=== PATIENT | female | born 1940 | race Caucasian/White ===

== ENCOUNTER 2020-08-29 09:56 | Outpatient (REF) | payer MEDICAID, SELFPAY ==
--- NOTE | 2020-08-29 09:59 | XR_ITS ---
EXAMINATION: XR BILATERAL KNEES XR LEFT KNEE CLINICAL INFORMATION: Left knee pain. COMPARISON: None. TECHNIQUE: AP bilateral knees one view. Left knee 2 views. FINDINGS: Left Knee: Normal alignment. Medial and lateral compartment joint space is maintained. Mild patellofemoral arthritis, with marginal patellar spurs. No acute fracture or dislocation. Moderate quadriceps tendon insertional enthesopathy. No significant effusion. On the single frontal projection of the right knee, there is normal alignment with maintained joint spaces. IMPRESSION: Mild left knee patellofemoral arthritis.
== END 2020-08-29 09:57 | disposition home or self-care (01) ==
LOC: HO.XRAY 09:56
PROVIDERS: PCP Internal Medicine; Referring Provider Internal Medicine; Visit Provider Orthopaedic Surgery
DX: M25.562 Pain in left knee (principal); M25.462 Effusion, left knee
CPT/HCPCS: 20610; 73560; 73565; 99203; 99204; J1100

== ENCOUNTER 2020-11-12 07:51 | Outpatient (REF) | payer MEDICAID, SELFPAY ==
[2020-11-12 09:05] LABS: MANUAL DIFF FLAG NO
[2020-11-12 09:08] LABS: Basophils Percent Auto 0.7 % (0-2); Eosinophils Absolute Auto 0.1 X10*3/uL (0.0-0.4); Eosinophils Percent Auto 1.7 % (0-4); Hematocrit 42.9 % (37-47); Hemoglobin 13.3 g/dl (12.0-16.0); Imm Gran Abs Auto 0.01 X10*3/uL (0.00-0.03); Imm Gran Pct Auto 0.2 % (0.0-0.4); Lymphocytes Absolute Auto 1.5 X10*3/uL (1.2-4.9); Lymphocytes Percent Auto 35.1 % (20-40); Mean Corpuscular Hemoglobin 26.9 pg (27.0-33.0); Mean Corpuscular Volume 86.8 fL (80-98); Mean Platelet Volume 12.2 fL (9.4-12.3); Monocytes Absolute Auto 0.2 X10*3/uL (0.1-1.2); Monocytes Percent Auto 5.7 % (2-11); Neutrophils Absolute Auto 2.4 X10*3/uL (2.0-8.3); Neutrophils Percent Auto 56.6 % (45-73); Platelet Count 137 X10*3/uL (160-400); Red Blood Count 4.94 X10*6/uL (4.20-5.50); White Blood Count 4.2 X10*3/uL (4.8-10.8)
[2020-11-12 09:34] LABS: Anion Gap 14 (12-20); Blood Urea Nitrogen 23 mg/dL (9-16); Calcium 8.8 mg/dL (8.4-10.2); Carbon Dioxide 25 mmol/L (22-29); Chloride 106 mmol/L (96-108); Estimated Glomerular Filt Rate 41; Magnesium 2.1 mg/dL (1.6-2.6); Phosphorus 4.3 mg/dL (2.7-4.5); Potassium 5.1 mmol/l (3.3-5.1); Sodium 140 mmol/L (135-145)
[2020-11-12 09:48] LABS: Glucose Urine UA NEG (NEG); Leukocyte Esterase Urine NEG (NEG); Nitrite Urine NEG (NEG); Urine Blood TRACE (NEG); Urine Ketones NEG (NEG); Urine Protein NEG (NEG-TRACE)
[2020-11-12 09:49] LABS: Free T4 (Free Thyroxine) 0.92 ng/dL (0.71-1.85); Thyroid Stimulating Hormone 1.73 uIU/mL (0.32-4.0)
[2020-11-12 09:56] LABS: Appearance Urine CLEAR; Color Urine YELLOW
[2020-11-12 09:57] LABS: Vitamin D 25-OH Total 21.3 ng/mL (>30)
[2020-11-12 10:05] LABS: Creatinine Urine 87.71 mg/dL; Total Protein Urine Random < 7 mg/dL (<12)
[2020-11-12 10:43] LABS: Mucus Urine 1+ /LPF; RBC Urine 0-2 /HPF (0); Squamous Epithelial Cell Urine 1+ /LPF; WBC Urine 0-2 /HPF (0-4)
[2020-11-12 10:51] LABS: Renal w Reflex Lab Use Only Order verified
[2020-11-12 11:12] LABS: Creatinine Urine 87.88 mg/dL; Microalbum/Creatinine Ratio Ur 12.5 ug/mg cr
[2020-11-13 18:33] LABS: Calcium (PTHI) 9.2 mg/dL (8.6-10.4); PTHI 75 pg/mL (14-64)
[2020-11-13 19:22] LABS: Triiodothyronine T3 Total 80 ng/dL (76-181)
== END 2020-11-12 07:52 | disposition home or self-care (01) ==
LOC: HO.LAB 07:51
PROVIDERS: Absent Provider Internal Medicine; PCP Internal Medicine; Visit Provider Internal Medicine Nephrology
DX: E78.5 Hyperlipidemia, unspecified (principal); I10 Essential (primary) hypertension; E05.90 Thyrotoxicosis, unspecified without thyrotoxic crisis or storm; E21.3 Hyperparathyroidism, unspecified; E04.9 Nontoxic goiter, unspecified
CPT/HCPCS: 36415; 80051; 81001; 82040; 82043; 82306; 82310; 82565; 83735; 83970; 84100; 84156; 84439; 84443; 84480; 84520; 85025

== ENCOUNTER → 2020-11-18 11:12 | Outpatient (BNVA) | payer MEDICAID, SELFPAY | PROVIDERS: PCP Internal Medicine; Referring Provider Internal Medicine; Visit Provider Internal Medicine | DX: Z76.89 Persons encountering health services in other specified circumstances (principal) ==

== ENCOUNTER 2020-11-27 08:15 | Outpatient (REF) | payer MEDICAID, SELFPAY ==
--- NOTE | 2020-11-27 08:23 | MM_ITS ---
EXAMINATION: BONE DENSITOMETRY CLINICAL INDICATION: Hyperparathyroidism. COMPARISON: None (current study represents initial baseline exam). TECHNIQUE: Using a [employer] Interpreting DXA System (software version: 13.1) manufactured by [employer], dual-energy x-ray absorptiometry was performed of the spine hip and right forearm radius 33%. The images are of good technical quality. Summary results are attached. FINDINGS: AP SPINE L1-L4: BMD 1.034 g/cm2, Z-score 0.7, T-score -1.2, osteopenia. LEFT FEMUR, NECK: BMD 0.768 g/cm2, Z-score 0.3, T-score -1.9, osteopenia. LEFT FEMUR, TOTAL: BMD 0.880 g/cm2, Z-score 1.1, T-score -1.0, normal. RIGHT FOREARM RADIUS 33%: BMD 0.577 g/cm2, Z-score -0.5, T-score -3.4, osteoporosis. IDENTIFIED RISK FACTORS: Osteoporosis. Hyperparathyroidism. Kidney disease. Low calcium intake, early menopause, secondary osteoporosis. Hysterectomy. Bilateral oophorectomy. HISTORY OF FRACTURE: None listed. MEDICATIONS: Vitamin D. MM/XR DEXA appendicular skeleton IMPRESSION: 1. DIAGNOSIS: Osteoporosis based on the lowest T-score value of -3.4 in the right forearm radius 33% applying World Health Organization criteria. 2. 10-YEAR FRACTURE RISK PREDICTION, FRAX: According to the guidelines, FRAX calculation should only be performed on patients in the osteopenia bone density category. Therefore, FRAX was not performed on this patient.? 3. Treatment Recommendations: NOF guidelines recommend consideration for treatment in postmenopausal women and men age 50 and older presenting with the following: -A hip or vertebral (clinical or morphometric) fracture. -T-score less than or equal to -2.5 at the femoral neck or spine after appropriate evaluation to exclude secondary causes. -Low bone mass at the hip or spine and a 10-year fracture probability by FRAX of greater than or equal to 3% for hip fracture or greater than or equal to 20% for major osteoporotic fracture based on the [place] adapted WHO algorithm. 4. Other Recommendations: All treatment decisions require clinical judgment and consideration of individual patient factors, including patient preferences, comorbidities, previous drug use, risk factors not captured in the FRAX model (e.g. frailty, falls, vitamin D deficiency, increased bone turnover, interval significant decline in bone density) and possible under or overestimation of fracture risk by FRAX. Additional medical evaluation for secondary cause of low bone mineral density may be appropriate. FUTURE SCAN RECOMMENDATION: People with diagnosed cases of osteoporosis or at high risk for fracture should have regular bone mineral density tests. For patients eligible for Medicare, routine testing is allowed once every 2 years. The testing frequency can be increased to one year for patients who have rapidly progressing disease, those who are receiving or discontinuing medical therapy to restore bone mass, or have additional risk factors.
== END 2020-11-27 08:16 | disposition home or self-care (01) ==
LOC: HO.MAMMO 08:15
PROVIDERS: Visit Provider Internal Medicine
DX: M81.8 Other osteoporosis without current pathological fracture (principal); E21.3 Hyperparathyroidism, unspecified
CPT/HCPCS: 77081

== ENCOUNTER → 2021-01-20 12:36 | Outpatient (BNVA) | payer MEDICAID, SELFPAY | PROVIDERS: PCP Internal Medicine; Visit Provider Internal Medicine ==

== ENCOUNTER 2021-01-22 07:56 | Outpatient (REF) | payer MEDICAID, SELFPAY ==
[2021-01-22 10:42] LABS: Alanine Aminotransferase 17 U/L (0-31); Albumin Level 4.1 g/dL (3.5-5.0); Alkaline Phosphatase 75 U/L (39-117); Anion Gap 10 (12-20); Aspartate Amino Transferase 19 U/L (5-31); Bilirubin Total 1.2 mg/dL (0.0-1.0); Blood Urea Nitrogen 25 mg/dL (9-16); Calcium 8.8 mg/dL (8.4-10.2); Carbon Dioxide 31 mmol/L (22-29); Chloride 105 mmol/L (96-108); Estimated Glomerular Filt Rate 40; Glucose Random 95 mg/dL (60-115); Phosphorus 4.6 mg/dL (2.7-4.5); Potassium 4.8 mmol/L (3.3-5.1); Sodium 141 mmol/L (135-145); Total Protein 7.1 g/dL (6.5-8.0)
[2021-01-22 11:05] LABS: Free T4 (Free Thyroxine) 0.82 ng/dL (0.71-1.85); Thyroid Stimulating Hormone 1.58 uIU/mL (0.32-4.0); Vitamin D 25-OH Total 33.1 ng/mL (>30)
[2021-01-23 06:02] LABS: Triiodothyronine T3 Total 77 ng/dL (76-181)
[2021-01-23 16:27] LABS: Calcium (PTHI) 9.1 mg/dL (8.6-10.4); PTHI 79 pg/mL (14-64)
== END 2021-01-22 07:57 | disposition home or self-care (01) ==
LOC: HO.10HDL 07:56
PROVIDERS: Visit Provider Internal Medicine
DX: E21.3 Hyperparathyroidism, unspecified (principal); E05.90 Thyrotoxicosis, unspecified without thyrotoxic crisis or storm; E04.9 Nontoxic goiter, unspecified; E55.9 Vitamin D deficiency, unspecified
CPT/HCPCS: 36415; 80053; 82306; 83970; 84100; 84439; 84443; 84480

== ENCOUNTER 2021-01-23 07:54 | Outpatient (REF) | payer MEDICAID, SELFPAY ==
[2021-01-23 10:40] LABS: Alanine Aminotransferase 42 U/L (0-31); Albumin Level 4.1 g/dL (3.5-5.0); Alkaline Phosphatase 88 U/L (39-117); Aspartate Amino Transferase 37 U/L (5-31); Bilirubin Direct 0.4 mg/dL (0.0-0.5); Bilirubin Total 1.2 mg/dL (0.0-1.0); Total Protein 7.3 g/dL (6.5-8.0)
[2021-01-23 12:36] LABS: Total Volume 24 Hour Urine 2700 mL
[2021-01-24 17:32] LABS: Calcium, 24 Hr Urine 32 mg/24 h; Calcium/Creatinine Ratio 31 mg/g creat (30-275); Creatinine 24Hr Urine 1.05 g/24 h (0.50-2.15)
== END 2021-01-23 07:55 | disposition home or self-care (01) ==
LOC: HO.10HDL 07:54
PROVIDERS: Visit Provider Internal Medicine
DX: E21.3 Hyperparathyroidism, unspecified (principal); E05.90 Thyrotoxicosis, unspecified without thyrotoxic crisis or storm
CPT/HCPCS: 36415; 80076; 82340; 82570

== ENCOUNTER 2021-01-24 08:55 | Emergency (ER) | payer MEDICAID, SELFPAY ==
--- NOTE | ~2021-01-24 | CT_ITS ---
EXAMINATION: CT ABDOMEN AND PELVIS WITH CONTRAST CLINICAL INFORMATION: Upper abdominal pain worse after eating COMPARISON: Ultrasound of the abdomen performed same day. TECHNIQUE: Multidetector volumetric images were obtained from the superior aspect of the liver through the pubic symphysis following administration 85 mL of Omnipaque 350 intravenous contrast. Sagittal and coronal reformatted images were obtained on the technologist's workstation. Oral contrast: No This CT examination was performed using dose optimization techniques as appropriate, variously including the following: *Automated exposure control *Adjustment of mA and/or kV according to patient size (this includes techniques or standardized protocols for targeted exams where dose is matched to indication/reason for exam; i.e. extremities or head) *Use of iterative reconstruction technique DLP: 510 mGy-cm FINDINGS: LUNG BASES: The visualized lung bases are unremarkable. LIVER, GALLBLADDER, AND BILIARY TREE: The liver is normal in size, shape, and attenuation. No focal hepatic lesion or biliary ductal dilatation is present. The gallbladder is unremarkable with no evidence of radiopaque gallstones, gallbladder wall thickening, or obvious pericholecystic inflammatory changes. PANCREAS: Unremarkable. SPLEEN: Unremarkable. ADRENAL GLANDS: Unremarkable. KIDNEYS AND URETERS: Simple cyst lower pole right kidney. Left kidney normal. Ureters normal. BLADDER: Unremarkable. GASTROINTESTINAL TRACT: Scattered diverticulosis most prominent in the sigmoid colon. No definite diverticulitis. Small bowel normal. STOMACH: Borderline generalized thickening of the wall the stomach. This could reflect normal variation or mild gastritis. ABDOMINAL WALL: There is a small to moderate size fat-containing left inguinal hernia measuring 2.5 cm transverse. There several punctate areas of calcification in the subcutaneous soft tissues in the right flank region likely reflecting injection granulomas. LYMPH NODES: Normal. VASCULAR: Mild arterial calcification throughout. PELVIC VISCERA: Postsurgical or age-related change in the uterus not clearly demonstrated. OSSEOUS STRUCTURES: Multilevel spondylosis of lumbosacral spine with grade 1 degenerative anterolisthesis at L5-S1. CT/CT abdomen pelvis w con IMPRESSION: No definitive abnormality that might explain the presenting symptoms. Borderline generalized thickening of the stomach wall. This could reflect normal variation or gastritis. Simple cyst right kidney. Scattered diverticulosis without diverticulitis. Left inguinal hernia fat-containing.
--- NOTE | ~2021-01-24 | US_ITS ---
EXAMINATION: US ABDOMEN COMPLETE CLINICAL INFORMATION: Upper abdominal pain for a few days. COMPARISON: None TECHNIQUE: Real-time imaging of the abdominal viscera. FINDINGS: PANCREAS: Normal. ABDOMINAL AORTA: The proximal, mid, and distal segments are normal in caliber. INFERIOR VENA CAVA: Visualized portions are normal. LIVER: There is slightly increased liver echogenicity with focal fatty sparing. The liver is normal in size. The liver contour is normal. Parenchymal echogenicity is normal. No focal hepatic lesion. There is no intrahepatic biliary duct dilatation seen. GALLBLADDER: The gallbladder is contracted and cannot be evaluated. COMMON BILE DUCT: Normal in caliber measuring 0.8 cm in diameter. RIGHT KIDNEY: There is anechoic cyst midpole measuring 1.1 x 1.1 x 1.2 cm. No hydronephrosis. No renal calculi or focal parenchymal lesions. The kidney measures 8.5 cm in maximum dimension. LEFT KIDNEY: Normal. No hydronephrosis. No renal calculi or focal parenchymal lesions. The kidney measures 9.8 cm in maximum dimension. SPLEEN: Normal. The spleen measures 7.8 cm in maximum dimension. FREE FLUID: None. US/US abdomen complete IMPRESSION: Diffuse hepatic steatosis with areas of focal fatty sparing. Contracted gallbladder cannot be evaluated. Right kidney midpole 1.2 cm cyst.
[2021-01-24 09:02] VITALS: BP 141/74; PULSE 75; RESP 18; TEMP 36.6; O2SAT 94; BMI 24.7
[2021-01-24 09:44] LABS: Imm Gran Abs Auto 0.01 X10*3/uL (0.00-0.03); Imm Gran Pct Auto 0.3 % (0.0-0.4); MANUAL DIFF FLAG SCAN; Mean Corpuscular Hemoglobin 27.6 pg (27.0-33.0); PLT CLUMP 1; SCAN SMEAR FLAG 1
[2021-01-24 09:46] LABS: Basophils Percent Auto 0.8 % (0-2); Eosinophils Absolute Auto 0.1 X10*3/uL (0.0-0.4); Eosinophils Percent Auto 1.8 % (0-4); Hematocrit 38.2 % (37-47); Hemoglobin 12.2 g/dl (12.0-16.0); Lymphocytes Absolute Auto 1.3 X10*3/uL (1.2-4.9); Lymphocytes Percent Auto 34.4 % (20-40); Mean Corpuscular HGB Conc 31.9 g/dl (31.0-35.0); Mean Corpuscular Volume 86.4 fL (80-98); Mean Platelet Volume 12.1 fL (9.4-12.3); Monocytes Absolute Auto 0.3 X10*3/uL (0.1-1.2); Monocytes Percent Auto 8.1 % (2-11); Neutrophils Absolute Auto 2.1 X10*3/uL (2.0-8.3); Neutrophils Percent Auto 54.6 % (45-73); Platelet Count 124 X10*3/uL (160-400); Red Blood Count 4.42 X10*6/uL (4.20-5.50); Red Cell Distribution Width 13.7 % (11.0-16.0); White Blood Count 3.8 X10*3/uL (4.8-10.8)
[2021-01-24 10:00] LABS: Prothrombin Time 12.2 SEC (10.8-13.0)
[2021-01-24 10:03] LABS: Partial Thromboplastin Time 29.9 SEC (24.1-38.0)
[2021-01-24 10:09] LABS: SLIDE REVIEW VERIFIED
[2021-01-24 10:27] LABS: Ethanol < 10 mg/dL
[2021-01-24 10:35] LABS: Alanine Aminotransferase 34 U/L (0-31); Albumin Level 3.8 g/dL (3.5-5.0); Alkaline Phosphatase 80 U/L (39-117); Anion Gap 11 (12-20); Aspartate Amino Transferase 25 U/L (5-31); Bilirubin Direct 0.4 mg/dL (0.0-0.5); Bilirubin Total 0.9 mg/dL (0.0-1.0); Blood Urea Nitrogen 21 mg/dL (9-16); Calcium 8.5 mg/dL (8.4-10.2); Carbon Dioxide 26 mmol/L (22-29); Chloride 106 mmol/L (96-108); Creatinine Clr Calc Pharmacy 30.9; Estimated Glomerular Filt Rate 41; Glucose Random 141 mg/dL (60-115); Lipase 53 U/L (8-78); Magnesium 2.1 mg/dL (1.6-2.6); Phosphorus 3.9 mg/dL (2.7-4.5); Potassium 4.2 mmol/L (3.3-5.1); Sodium 139 mmol/L (135-145); Total Protein 6.7 g/dL (6.5-8.0)
--- NOTE | 2021-01-24 10:36 | ED_ITS ---
HPI - Abdominal Pain General Chief Complaint: Recheck/Abnormal Lab/Rx Stated Complaint: ABNORMAL LABS Time Seen by Provider: 01/24/21 09:10 Source: patient Mode of arrival: ambulatory Limitations: language barrier (Brazilian-speaking) History of Present Illness HPI narrative: 80-year-old female with a past medical history of hypertension, hyperlipidemia, renal impairment, subclinical hyperthyroidism, goiter, hyperpa rathyroidism, and vitamin-D deficiency presenting to the ED with complaints of abnormal labs for her liver per patient on 01/20/[address] Vero Downs and abdominal pain for the past few days worse today. Reports that the abdominal pain is in the upper aspect and is worse after eating. She reports she is not completely sure why her bilingual administrative assistant sent her here. Denies any fevers, nausea/vomiting, chest pain, shortness of breath, palpitations, dyspnea on exertion, orthopnea, back pain, rashes, dysuria, polyuria, polydipsia, constipation, diarrhea, hematuria, melena or any other symptoms complaints or concerns at this time. Denies recent travel or sick contacts. - although when I reviewed the patient's last visit with her bilingual administrative assistant on 01/20/[address] Vero Downs it appears that they were worried about the patient's thyroid and parathyroid nothing in the note that I have reviewed about the patient's liver. MD elicited complaint: abdominal pain Onset (ago): day(s) (Few days worse today) Pain Consistency: intermittent Location: epigastric, LUQ and RUQ Severity: mild Quality: cramping and aching Radiation: none Migration to: no migration Exacerbating factors: eating Relieving factors: nothing Associated symptoms: denies other symptoms Related Data Home Medications Medication Instructions Recorded Confirmed atorvastatin 20 mg tablet 20 mg PO DAILY 08/29/20 01/20/21 gabapentin 100 mg capsule 100 mg PO DAILY 08/29/20 01/20/21 metoprolol succinate 50 mg 50 mg PO DAILY 08/29/20 01/20/21 tablet,extended release 24 hr trazodone 100 mg tablet 100 mg PO DAILY 08/29/20 01/20/21 methimazole 5 mg tablet 2.5 mg PO DAILY tab 11/18/20 01/20/21 Previous Rx's Medication Instructions Recorded cholecalciferol (vitamin D3) 25 25 mcg PO DAILY 30 Days #30 cap 11/18/20 mcg (1,000 unit) capsule omeprazole 20 mg PO BID #20 cap 01/24/21 Allergies Allergy/AdvReac Type Severity Reaction Status Date / Time No Known Allergies Allergy Verified 01/20/21 13:34 Review of Systems Review of Systems Constitutional : No Weight loss, No Fever, No Chills, No Night Sweats, No Fatigue, No Malaise ENT/Mouth: No ear pain, No sore throat, No Difficulty swallowing Cardiovascular : No Chest Pain, No SOB, No Dyspnea on Exertion, No Orthopnea, NoEdema, No Palpitations Respiratory : No Cough, No Sputum, No Wheezing, No Dyspnea Gastrointestinal : + Abdominl pain, No Nausea, No Vomiting, No Diarrhea, No Hematochezia, No Melena Genitourinary : No irregular bleeding, No Dysuria, No Urinary Frequency, No Hematuria, No Urinary Incontinence, No Urgency, No Flank Pain Musculoskeletal : No joint pain, No Myalgias, No Joint Swelling Skin : No Skin Lesions, No rash Neuro : No Weakness, No Numbness, No Paresthesias, No Loss of Consciousness, NoDizziness, No Headache Psych : No Social Issues, Heme/Lymph: No Bruising, No Bleeding,No Lymphadenopathy Endocrine : No Polyuria, No Polydipsia, No Temperature Intolerance Yes all other systems are reviewed and are negative Physical Exam Vital Signs: Vital Signs: Last Vital Signs Temp 97.9 F 01/24/21 09:02 Pulse 75 01/24/21 09:02 Resp 18 01/24/21 09:02 BP 141/74 H 01/24/21 09:02 Pulse Ox 94 01/24/21 09:02 Body Mass Index 24.7 vital signs have been reviewed as normal and appeared to be correct. Blood pressure hypertensive at 141/74. Heart rate normal. Respiration rate normal. Temperature normal. Oxygen saturation normal. Appearance: Alert. Oriented X3. No acute distress. Head: Normal external exam. Normocephalic. Eyes: PERRLA. EOMI. Conjunctiva and sclera normal. Eyelids normal. No scleral icterus noted. ENT: Pharynx normal. Uvula midline. Moist mucous membranes. No trismus noted. No drooling noted. No muffled voice noted. Neck: Normal inspection. Neck supple. FROM. No adenopathy. No meningeal signs. CVS: Normal heart rate and rhythm. Heart sound normal. No murmurs noted. Pulses normal throughout. Respiratory: No respiratory distress. Painless inspiration. Breath sounds normal. No wheezes/rales/rhonchi noted. Chest nontender. No accessory muscle usage noted or decreased air movement noted. Abdomen: Soft and Mild TTP to upper abdomen/epigastric abdominal area positive Mendoza sign with guarding. Nondistended. No rigidity. Bowel sounds normal in all 4 quadrants. No distention noted. No organomegaly noted. No visible injury noted. No rebound tenderness. Negative Rovsing sign. Negative obturator's sign. Negative psoas sign. Back: No CVA tenderness. Full range of motion noted. Skin: Skin warm and dry. Normal skin color. No jaundice noted. Normal skin turgor. No rashes/lesions/lacerations noted. Extremities: Extremities exhibit normal range of motion. Extremities nontender. Neuro: Oriented X 3. No motor deficit. No sensory deficit. Reflexes normal. Course Course Course Narrative: 9:35am - 80-year-old female with a PMHx of HTN, HLD, renal impairment, subclinical hyperthyroidism, goiter, hyperparathyroidism, and vitamin-D deficiency presenting to the ED with complaints of abnormal labs for her liver and abdominal pain for the past few days worse today. - patient was seen by her bilingual administrative assistant on 01/20/2021 and being worked up for subclinical hypothyroidism and hyperparathyroidism along with vitamin D deficiency and goiter. - on exam patient is alert and oriented x3. Not in any acute distress. Mildly hypertensive at 141/74 otherwise all other vitals are within normal limits. No scleral icterus or jaundice on exam. Lungs clear to auscultation. CV RRR. Patient went moderate tenderness to the upper abdomen/epigastric area. Although abdomen is soft and nondistended. No CVA tenderness noted. No focal neuro deficits patient is neuro intact. - Plan: Labs, CT abd US and CT scan of abd/pelvis c IV contrast then re- evaluate. Reevaluation(s) Reevaluation #1: - white blood cell count 3000. - random glucose 141 - ALT 34 - otherwise all other labs are within normal limits. - abdominal ultrasound revealed diffuse hepatic steatosis with area of focal fatty sparing contracted gallbladder could not be evaluated and noted to have right kidney midpole 1.2 cm cyst - therefore CT scan of abdomen and pelvis with IV contrast obtained and revealed no definite abnormality that might explain the patient's symptoms borderline generalized thickening of the stomach wall which can represent normal variant or gastritis. Simple cyst right kidney. Scattered diverticulosis without diverticulitis and left inguinal hernia containing fat otherwise no other acute processes. - therefore will DC home with PPI and instructions to return if any new or worsening symptoms and to avoid any NSAIDs, caffeine or smoking. Patient understands and agrees with plan. Time: 12:58 [facility] - Abdominal Pain Medical Records Attestation: I reviewed the patient's medical records. Lab Data Attestation: I reviewed the patient's lab results. Result diagrams: 01/24/21 09:33 01/24/21 09:34 Labs: Lab Results 01/24/21 01/24/21 01/24/21 Range/Units 09:33 09:33 09:33 WBC 3.8 L (4.8-10.8) X10*3/uL RBC 4.42 (4.20-5.50) X10*6/uL Hgb 12.2 (12.0-16.0) g/dl Hct 38.2 (37-47) % MCV 86.4 (80-98) fL MCH 27.6 (27.0-33.0) pg MCHC 31.9 (31.0-35.0) g/dl RDW 13.7 (11.0-16.0) % Plt Count 124 L (160-400) X10*3/uL MPV 12.1 (9.4-12.3) fL Immature Gran % (Auto) 0.3 (0.0-0.4) % Neut % (Auto) 54.6 (45-73) % Lymph % (Auto) 34.4 (20-40) % Lyman % (Auto) 8.1 (2-11) % Eos % (Auto) 1.8 (0-4) % Baso % (Auto) 0.8 (0-2) % Lymph # (Auto) 1.3 (1.2-4.9) X10*3/uL Lyman # (Auto) 0.3 (0.1-1.2) X10*3/uL Eos # (Auto) 0.1 (0.0-0.4) X10*3/uL Baso # (Auto) 0.0 (0.0-0.2) X10*3/uL Abs Immat Gran (auto) 0.01 (0.00-0.03) X10*3/uL Absolute Neuts (auto) 2.1 (2.0-8.3) X10*3/uL Absolute Nucleated RBC 0.000 (0.0-0.012) X10*3/uL Nucleated RBC % (auto) 0.0 (0.0-0.2) /100WBC Smear Tech's Comments VERIFIED Hold Purple Top SEE NOTE PT 12.2 (10.8-13.0) SEC INR 1.0 (0.9-1.1) APTT 29.9 (24.1-38.0) SEC Sodium (135-145) mmol/L Potassium (3.3-5.1) mmol/L Chloride (96-108) mmol/L Carbon Dioxide (22-29) mmol/L Anion Gap (12-20) BUN (9-16) mg/dL Creatinine (0.5-1.4) mg/dL Estim Creat Clear Calc Estimated GFR Random Glucose (60-115) mg/dL Calcium (8.4-10.2) mg/dL Phosphorus (2.7-4.5) mg/dL Magnesium (1.6-2.6) mg/dL Total Bilirubin (0.0-1.0) mg/dL Direct Bilirubin (0.0-0.5) mg/dL AST (5-31) U/L ALT (0-31) U/L Alkaline Phosphatase (39-117) U/L Total Protein (6.5-8.0) g/dL Albumin (3.5-5.0) g/dL Lipase (8-78) U/L 25-OH Vitamin D Total (>30) ng/mL TSH (0.32-4.0) uIU/mL Free T4 (0.71-1.85) ng/dL Ethyl Alcohol mg/dL 01/24/21 01/24/21 01/24/21 Range/Units 09:34 09:34 09:34 WBC (4.8-10.8) X10*3/uL RBC (4.20-5.50) X10*6/uL Hgb (12.0-16.0) g/dl Hct (37-47) % MCV (80-98) fL MCH (27.0-33.0) pg MCHC (31.0-35.0) g/dl RDW (11.0-16.0) % Plt Count (160-400) X10*3/uL MPV (9.4-12.3) fL Immature Gran % (Auto) (0.0-0.4) % Neut % (Auto) (45-73) % Lymph % (Auto) (20-40) % Lyman % (Auto) (2-11) % Eos % (Auto) (0-4) % Baso % (Auto) (0-2) % Lymph # (Auto) (1.2-4.9) X10*3/uL Lyman # (Auto) (0.1-1.2) X10*3/uL Eos # (Auto) (0.0-0.4) X10*3/uL Baso # (Auto) (0.0-0.2) X10*3/uL Abs Immat Gran (auto) (0.00-0.03) X10*3/uL Absolute Neuts (auto) (2.0-8.3) X10*3/uL Absolute Nucleated RBC (0.0-0.012) X10*3/uL Nucleated RBC % (auto) (0.0-0.2) /100WBC Smear Tech's Comments Hold Purple Top PT (10.8-13.0) SEC INR (0.9-1.1) APTT (24.1-38.0) SEC Sodium 139 (135-145) mmol/L Potassium 4.2 (3.3-5.1) mmol/L Chloride 106 (96-108) mmol/L Carbon Dioxide 26 (22-29) mmol/L Anion Gap 11 L (12-20) BUN 21 H (9-16) mg/dL Creatinine 1.26 (0.5-1.4) mg/dL Estim Creat Clear Calc 30.9 Estimated GFR 41 Random Glucose 141 H D (60-115) mg/dL Calcium 8.5 (8.4-10.2) mg/dL Phosphorus 3.9 (2.7-4.5) mg/dL Magnesium 2.1 (1.6-2.6) mg/dL Total Bilirubin 0.9 (0.0-1.0) mg/dL Direct Bilirubin 0.4 (0.0-0.5) mg/dL AST 25 (5-31) U/L ALT 34 H (0-31) U/L Alkaline Phosphatase 80 (39-117) U/L Total Protein 6.7 (6.5-8.0) g/dL Albumin 3.8 (3.5-5.0) g/dL Lipase 53 (8-78) U/L 25-OH Vitamin D Total 31.5 (>30) ng/mL TSH 1.35 (0.32-4.0) uIU/mL Free T4 0.87 (0.71-1.85) ng/dL Ethyl Alcohol < 10 mg/dL Imaging Data Abdominal ultrasound: Attestation: I personally reviewed and interpreted this imaging study as follows: Radiologist's impression: FINDINGS: PANCREAS: Normal. ABDOMINAL AORTA: The proximal, mid, and distal segments are normal in caliber. INFERIOR VENA CAVA: Visualized portions are normal. LIVER: There is slightly increased liver echogenicity with focal fatty sparing. The liver is normal in size. The liver contour is normal. Parenchymal echogenicity is normal. No focal hepatic lesion. There is no intrahepatic biliary duct dilatation seen. GALLBLADDER: The gallbladder is contracted and cannot be evaluated. COMMON BILE DUCT: Normal in caliber measuring 0.8 cm in diameter. RIGHT KIDNEY: There is anechoic cyst midpole measuring 1.1 x 1.1 x 1.2 cm. No hydronephrosis. No renal calculi or focal parenchymal lesions. The kidney measures 8.5 cm in maximum dimension. LEFT KIDNEY: Normal. No hydronephrosis. No renal calculi or focal parenchymal lesions. The kidney measures 9.8 cm in maximum dimension. SPLEEN: Normal. The spleen measures 7.8 cm in maximum dimension. FREE FLUID: None. US/US abdomen complete IMPRESSION: Diffuse hepatic steatosis with areas of focal fatty sparing. Contracted gallbladder cannot be evaluated. Right kidney midpole 1.[address] scan of abdomen pelvis with IV contrast: Attestation: I personally reviewed and interpreted this imaging study as follows: Radiologist's impression: FINDINGS: LUNG BASES: The visualized lung bases are unremarkable. LIVER, GALLBLADDER, AND BILIARY TREE: The liver is normal in size, shape, and attenuation. No focal hepatic lesion or biliary ductal dilatation is present. The gallbladder is unremarkable with no evidence of radiopaque gallstones, gallbladder wall thickening, or obvious pericholecystic inflammatory changes. PANCREAS: Unremarkable. SPLEEN: Unremarkable. ADRENAL GLANDS: Unremarkable. KIDNEYS AND URETERS: Simple cyst lower pole right kidney. Left kidney normal. Ureters normal. BLADDER: Unremarkable. GASTROINTESTINAL TRACT: Scattered diverticulosis most prominent in the sigmoid colon. No definite diverticulitis. Small bowel normal. STOMACH: Borderline generalized thickening of the wall the stomach. This could reflect normal variation or mild gastritis. ABDOMINAL WALL: There is a small to moderate size fat-containing left inguinal hernia measuring 2.5 cm transverse. There several punctate areas of calcification in the subcutaneous soft tissues in the right flank region likely reflecting injection granulomas. LYMPH NODES: Normal. VASCULAR: Mild arterial calcification throughout. PELVIC VISCERA: Postsurgical or age-related change in the uterus not clearly demonstrated. OSSEOUS STRUCTURES: Multilevel spondylosis of lumbosacral spine with grade 1 degenerative anterolisthesis at L5-S1. CT/CT abdomen pelvis w con IMPRESSION: No definitive abnormality that might explain the presenting symptoms. Borderline generalized thickening of the stomach wall. This could reflect normal variation or gastritis. Simple cyst right kidney. Scattered diverticulosis without diverticulitis. Left inguinal hernia fat-containing. Discharge Plan Discharge Clinical Impression: Gastritis Patient Disposition: Home, Self-Care Instructions: Gastritis (ED) Prescriptions: New omeprazole 20 mg capsule,delayed release(DR/EC) 20 mg PO BID Qty: 20 RF: 0 No Action metoprolol succinate 50 mg tablet extended release 24 hr 50 mg PO DAILY RF: 0 atorvastatin 20 mg tablet 20 mg PO DAILY RF: 0 gabapentin 100 mg capsule 100 mg PO DAILY RF: 0 trazodone 100 mg tablet 100 mg PO DAILY RF: 0 methimazole 5 mg tablet 2.5 mg PO DAILY RF: 0 cholecalciferol (vitamin D3) 25 mcg (1,000 unit) capsule 25 mcg PO DAILY 30 Days Qty: 30 RF: 11 Referrals: Evi Thomson MD [Primary Care Provider] - 2 days Vero Voss DO [Physician] - 2 days Print Language: Brazilian [facility] Past Medical History Attestation statement: The following information was validated with the patient. Medical History Effusion, left knee Goiter High cholesterol Hyperparathyroidism Hypertension Left knee pain Renal impairment Subclinical hyperthyroidism Vitamin D deficiency Surgical History Hx of cataract extraction Hx of hysterectomy Family History Family History Father No problems noted. Mother No problems noted. Social History Social History Alcohol intake: never Smoking Status: Never smoker Use of substances other than those prescribed or required for medical reasons: No Advance Directives: No Advance Directives Information Provided: No
[2021-01-24 10:55] LABS: Vitamin D 25-OH Total 31.5 ng/mL (>30)
[2021-01-24 10:56] LABS: Free T4 (Free Thyroxine) 0.87 ng/dL (0.71-1.85); Thyroid Stimulating Hormone 1.35 uIU/mL (0.32-4.0)
[2021-01-25 06:37] LABS: Triiodothyronine T3 Total 89 ng/dL (76-181)
[2021-02-01 15:01] LABS: Calcium (PTHI) 8.7 mg/dL (8.6-10.4); PTHI 85 pg/mL (14-64)
== END 2021-01-24 13:31 | disposition home or self-care (01) ==
PROVIDERS: Physician Assistant Medical; Emergency Provider Emergency Medicine Emergency Medical Services; PCP Internal Medicine
DX: K29.70 Gastritis, unspecified, without bleeding (principal); R93.5 Abnormal findings on diagnostic imaging of other abdominal regions, including retroperitoneum; K76.0 Fatty (change of) liver, not elsewhere classified; Q61.01 Congenital single renal cyst; K40.90 Unilateral inguinal hernia, without obstruction or gangrene, not specified as recurrent; K57.92 Diverticulitis of intestine, part unspecified, without perforation or abscess without bleeding; I10 Essential (primary) hypertension; E78.5 Hyperlipidemia, unspecified; Z79.899 Other long term (current) drug therapy
CPT/HCPCS: 36415; 74177; 76700; 80048; 80076; 80320; 82306; 83690; 83735; 83970; 84100; 84439; 84443; 84480; 85025; 85610; 85730; 99284; Q9967

== ENCOUNTER → 2021-02-26 11:32 | Outpatient (BNVA) | payer MEDICAID, SELFPAY | PROVIDERS: PCP Internal Medicine; Visit Provider Internal Medicine ==

== ENCOUNTER 2021-05-07 07:42 | Outpatient (REF) | payer MEDICAID, SELFPAY ==
[2021-05-07 10:48] LABS: Alanine Aminotransferase 15 U/L (0-31); Alkaline Phosphatase 87 U/L (39-117); Anion Gap 13 (12-20); Aspartate Amino Transferase 24 U/L (5-31); Bilirubin Total 0.8 mg/dL (0.0-1.0); Blood Urea Nitrogen 23 mg/dL (9-16); Calcium 9.1 mg/dL (8.4-10.2); Carbon Dioxide 24 mmol/L (22-29); Chloride 109 mmol/L (96-108); Estimated Glomerular Filt Rate 31; Glucose Random 106 mg/dL (60-115); Phosphorus 4.2 mg/dL (2.7-4.5); Potassium 5.2 mmol/L (3.3-5.1); Sodium 141 mmol/L (135-145); Total Protein 7.5 g/dL (6.5-8.0)
[2021-05-07 11:11] LABS: Thyroid Stimulating Hormone 0.82 uIU/mL (0.32-4.0); Vitamin D 25-OH Total 41.8 ng/mL (>30)
[2021-05-08 07:26] LABS: Triiodothyronine T3 Total 94 ng/dL (76-181)
[2021-05-08 13:32] LABS: Calcium (PTHI) 9.3 mg/dL (8.6-10.4); PTHI 82 pg/mL (14-64)
[2021-05-08 13:57] LABS: H Pylori Breath Test NOT DETECTED (NOT DETECTED)
== END 2021-05-07 07:43 | disposition home or self-care (01) ==
LOC: HO.10HDL 07:42
PROVIDERS: Physician Assistant; Visit Provider Internal Medicine
DX: E21.3 Hyperparathyroidism, unspecified (principal); E04.9 Nontoxic goiter, unspecified; E05.90 Thyrotoxicosis, unspecified without thyrotoxic crisis or storm; E55.9 Vitamin D deficiency, unspecified; K21.9 Gastro-esophageal reflux disease without esophagitis
CPT/HCPCS: 36415; 80053; 82306; 83013; 83970; 84100; 84439; 84443; 84480; 99202

== ENCOUNTER 2021-05-08 07:50 | Outpatient (REF) | payer MEDICAID, SELFPAY ==
[2021-05-08 08:53] LABS: Albumin Level 3.9 g/dL (3.5-5.0); Anion Gap 10 (12-20); Blood Urea Nitrogen 20 mg/dL (9-16); Calcium 9.2 mg/dL (8.4-10.2); Carbon Dioxide 28 mmol/L (22-29); Chloride 108 mmol/L (96-108); Estimated Glomerular Filt Rate 37; Glucose Random 102 mg/dL (60-115); Phosphorus 3.8 mg/dL (2.7-4.5); Potassium 4.9 mmol/L (3.3-5.1); Sodium 141 mmol/L (135-145)
[2021-05-08 09:03] LABS: Thyroid Stimulating Hormone 0.81 uIU/mL (0.32-4.0); Vitamin D 25-OH Total 40.3 ng/mL (>30)
[2021-05-09 13:26] LABS: Calcium (PTHI) 9.2 mg/dL (8.6-10.4); PTHI 80 pg/mL (14-64)
== END 2021-05-08 07:51 | disposition home or self-care (01) ==
LOC: HO.LAB 07:50
PROVIDERS: PCP Internal Medicine; Visit Provider Internal Medicine
DX: E21.3 Hyperparathyroidism, unspecified (principal); E04.9 Nontoxic goiter, unspecified; E05.90 Thyrotoxicosis, unspecified without thyrotoxic crisis or storm; E55.9 Vitamin D deficiency, unspecified
CPT/HCPCS: 36415; 80048; 82040; 82306; 83970; 84100; 84439; 84443

== ENCOUNTER → 2021-05-28 09:25 | Outpatient (BNVA) | payer MEDICAID, SELFPAY | PROVIDERS: Visit Provider Internal Medicine ==

== ENCOUNTER 2021-07-16 09:54 | Day surgery (SDC) | payer MEDICAID, SELFPAY ==
--- NOTE | 2021-07-15 10:45 | P.CONAN_ITS ---
Documented by User: Natalie De NP 07/15/21 10:46 HPI - Anesthesia Eval Consult details Narrative: 80yo F for Upper Endoscopy PMFSH Active Problems Active Problems: All Active Problems (Updated 07/10/21 @ 12:53 by Angelic Zimmerman, RN) Acid reflux (Acute) Renal impairment (Acute) Hypertension (Acute) High cholesterol (Acute) Vitamin D deficiency (Acute) Goiter (Acute) Hyperparathyroidism (Acute) Subclinical hyperthyroidism (Acute) Effusion, left knee (Acute) Left knee pain (Acute) Past Medical History Medical History (Updated 07/10/21 @ 12:53 by Angelic Zimmerman, EDITA) Effusion, left knee Goiter High cholesterol Hyperparathyroidism Hypertension Left knee pain On beta april at home Renal impairment Subclinical hyperthyroidism Vitamin D deficiency Family History Family History Father No problems noted. Mother No problems noted. Surgical History Surgical History H/O colonoscopy History of esophagogastroduodenoscopy (EGD) Hx of cataract extraction Hx of hysterectomy Social History Social History Household Members Other:: lives with her daughter Alcohol intake: never Patient Tobacco Use Status: Never used Tobacco Use of substances other than those prescribed or required for medical reasons: No Have you been hit, kicked, punched, or otherwise hurt by someone within the past year? If so, by whom?: No Are you DNR?: No Advance Directives: No Advance Directives Information Provided: No Recently lost weight without trying: No Nutrition Risks: No Nutritional Risk Patient : No Current occupational status: unemployed Meds Allergies Allergy/AdvReac Type Severity Reaction Status Date / Time No Known Allergies Allergy Verified 07/10/21 12:59 Home Medications Medication Instructions Recorded Confirmed Last Taken Type atorvastatin 20 mg tablet 20 mg PO DAILY 08/29/20 07/10/21 Unknown History gabapentin 100 mg capsule 100 mg PO BID 08/29/20 07/10/21 Unknown History metoprolol succinate 50 mg 50 mg PO DAILY 08/29/20 07/10/21 Unknown History tablet,extended release 24 hr trazodone 100 mg tablet 100 mg PO DAILY 08/29/20 07/10/21 Unknown History fluticasone propionate 50 1 - 2 spray INTRANASAL DAILY PRN 07/10/21 07/10/21 Unknown History mcg/actuation nasal spray,suspension gabapentin 300 mg capsule 1 cap PO BEDTIME 07/10/21 07/10/21 Unknown History Exam Exam Date and Time: July 15, 2021 1045 Pertinent Lab Results Pertinent Lab Results: Laboratory Tests 01/24/21 05/08/21 09:33 08:00 WBC 3.8 L Hgb 12.2 Hct 38.2 Plt Count 124 L Sodium 141 Potassium 4.9 Chloride 108 Carbon Dioxide 28 BUN 20 H Creatinine 1.37 Assessment and Plan Assessment Anesthesia Assessment: Chart Reviewed Documented by User: Marilyn Otto MD 07/16/21 11:04 [facility] Past Medical History Medical History (Updated 07/10/21 @ 12:53 by Angelic Zimmerman RN) Effusion, left knee Goiter High cholesterol Hyperparathyroidism Hypertension Left knee pain On beta april at home Renal impairment Subclinical hyperthyroidism Vitamin D deficiency Family History Family History Father No problems noted. Mother No problems noted. Family history of problems with anesthesia: No Surgical History Surgical History H/O colonoscopy History of esophagogastroduodenoscopy (EGD) Hx of cataract extraction Hx of hysterectomy History of Problems with Anesthesia: No Social History Social History Household Members Other:: lives with her daughter Alcohol intake: never Patient Tobacco Use Status: Never used Tobacco Use of substances other than those prescribed or required for medical reasons: No Have you been hit, kicked, punched, or otherwise hurt by someone within the past year? If so, by whom?: No Are you DNR?: No Advance Directives: No Advance Directives Information Provided: No Recently lost weight without trying: No Nutrition Risks: No Nutritional Risk Patient : No Current occupational status: unemployed Meds Allergies Allergy/AdvReac Type Severity Reaction Status Date / Time No Known Allergies Allergy Verified 07/10/21 12:59 Home Medications Medication Instructions Recorded Confirmed Last Taken Type atorvastatin 20 mg tablet 20 mg PO DAILY 08/29/20 07/10/21 Unknown History gabapentin 100 mg capsule 100 mg PO BID 08/29/20 07/10/21 Unknown History metoprolol succinate 50 mg 50 mg PO DAILY 08/29/20 07/10/21 Unknown History tablet,extended release 24 hr trazodone 100 mg tablet 100 mg PO DAILY 08/29/20 07/10/21 Unknown History fluticasone propionate 50 1 - 2 spray INTRANASAL DAILY PRN 07/10/21 07/10/21 Unknown History mcg/actuation nasal spray,suspension gabapentin 300 mg capsule 1 cap PO BEDTIME 07/10/21 07/10/21 Unknown History Exam Airway Mallampati Class: II TM Dist: >3cm Neck ROM: Full Denture: Upper and Lower Heart: rrr Lungs: cta bl Assessment and Plan Assessment Anesthesia Assessment: Anesthesia Plan Discussed and Chart Reviewed Final Anesthetic Review Family History of Problems with Anesthesia: No History of Problems with Anesthesia: No NPO: No ASA Class: II Final Preanesthetic Review: No Changes in Pt Med Stat and Consent Obtained/Reviewed Patient Risk: Intermediate Procedure Risk: Intermediate Anesthetic Plan Anesthetic Plan: MAC: Disposition: Standard PACU
[2021-07-16 09:42] VITALS: BMI 27.6
[2021-07-16 10:14] VITALS: BP 183/82; PULSE 63; RESP 18; TEMP 36.6; O2SAT 95
--- NOTE | 2021-07-16 10:22 | PC.NURSE ---
pt has a facial robert right upper eye
[2021-07-16] MEDS: Lactated Ringers 1,000 ML 100 ML IVCONT (10:45)
--- NOTE | 2021-07-16 10:54 | MHC.SHP ---
Pre-Procedural Eval Section A Date of Service: 07/16/21 Section B Chief Complaint: reflux disease Relevant Family History (Specify if Yes): No Relevant Social History: None Present Medications: see Short Stay Collaborative assessment Medical History: Significant History (Effusion, left knee Goiter High cholesterol Hyperparathyroidism Hypertension Left knee pain On beta april at home Renal impairment Subclinical hyperthyroidism Vitamin D deficiency) History of Previous Operations: Relevant previous surgery/procedure and date(s) (H/O colonoscopy History of esophagogastroduodenoscopy (EGD) Hx of cataract extraction Hx of hysterectomy) Allergies: Allergies Allergy/AdvReac Type Severity Reaction Status Date / Time No Known Allergies Allergy Verified 07/10/21 12:59 Review of Systems Sugical H&P ROS: Negative: Constitution, Cardiovascular, Respiratory, Neurological, Psychiatric, Hem-Onc, Allergic/Immunologic, Gastrointestinal, Genitourinary, Musculoskeletal, Integumentary, Endocrine and Eyes/Ears/Nose/Throat Exam Surgical H&P Exam: Normal: HEENT, Normal: Heart, Normal: Lungs, Normal: Extremities, Normal: Abdomen, Normal: Skin and Normal: Neurological Plan Diagnosis/Plan: Unchanged I have reviewed the history and physical and performed a pertinent physical examination on my patient. No changes have occurred unless specified.
--- NOTE | 2021-07-16 10:56 | P.BOP_ITS ---
Brief Operative Note Date of Service: 07/16/21 Pre-op diagnosis: post prandial pain, reflux Post-op diagnosis: same Procedure: see op note Surgeon: Wesley Hughes MD Anesthesia: MAC Was an Talent Recruiter used for this Procedure?: No Estimated blood loss (mL): 0 Condition: stable Disposition: PACU
--- NOTE | 2021-07-16 11:23 | W.PM.OPN ---
Operative Note Operative Note Date of Service: 07/16/21 Narrative: Procedure Description: EGD FLEXIBLE TRANSORAL UPPER GASTROINTESTINAL ENDOSCOPY UPPER ENDOSCOPY Consent: Indications for the procedure and potential complications of bleeding, perforation, reaction to medications and missed diagnosis were discussed with the patient and informed consent was obtained. Instrument: Olympus GIF H 190 J mid size upper endoscope Monitoring: Vital signs and clinical assessment, continuous EKG monitoring, Pulse oximetry, Carbon Dioxide monitoring and blood pressure monitoring were done throughout the procedure. Procedure: The patient was placed in the left lateral decubitis position and pre-procedure medications were administered and a bite block was placed. The endoscope was inserted into the mouth and advanced under direct vision to the third part of duodenum. A careful inspection was made as the upper endoscope was withdrawn including a retroflexed examination of the proximal stomach; Findings and interventions are described below. Findings: Larynx:normal Esophagus: GE junction at 37 cm, diaphragm hiatus at 37 cm, LA grade A erosive esophagitis at GEJ, bx taken from GEJ and random esophagus. Stomach: Patchy gastric erythema. Biopsies were obtained. Grade 2 flap valve on retroflexed examination of the cardia. Duodenum: bulbar duodenitis, normal descending duodenum, bx taken Intervention: Biopsies as noted above Impression/Findings: gastritis duodenitis esophagitis PLAN: await bx, if h pylori pos then treat may benefit from changing PPI to pantoprazole 20 mg and see if get better effect
[2021-07-16 11:28] VITALS: BP 126/53; PULSE 56; RESP 16; TEMP 36.5; O2SAT 96
[2021-07-16 11:43] VITALS: BP 162/68; PULSE 59; RESP 16; TEMP 36.5; O2SAT 96
== END 2021-07-16 12:29 | disposition home or self-care (01) ==
PROVIDERS: PCP Internal Medicine; Visit Provider Internal Medicine Gastroenterology
PROC: 0DJ08ZZ Inspection of Upper Intestinal Tract, Via Natural or Artificial Opening Endoscopic (ICD-10-PCS; CPT 43235; principal; 2021-07-16 11:00)
DX: K21.00 Gastro-esophageal reflux disease with esophagitis, without bleeding (principal); K29.70 Gastritis, unspecified, without bleeding; K29.80 Duodenitis without bleeding; I10 Essential (primary) hypertension
CPT/HCPCS: 43239; 88305; 88342

== ENCOUNTER → 2021-08-04 08:27 | Outpatient (BNVA) | payer MEDICAID, SELFPAY | PROVIDERS: PCP Internal Medicine; Visit Provider Physician Assistant ==

== ENCOUNTER → 2021-08-26 11:43 | Outpatient (BNVA) | payer MEDICAID, SELFPAY | PROVIDERS: PCP Internal Medicine; Referring Provider Internal Medicine; Visit Provider Physician Assistant ==

== ENCOUNTER → 2021-10-06 13:03 | Outpatient (BNVA) | payer MEDICAID, SELFPAY | PROVIDERS: PCP Internal Medicine; Visit Provider Orthopaedic Surgery | DX: M54.16 Radiculopathy, lumbar region (principal); M17.12 Unilateral primary osteoarthritis, left knee | CPT/HCPCS: 20610; 99212; J1100 ==

== ENCOUNTER 2021-10-30 07:23 | Outpatient (REF) | payer MEDICAID, SELFPAY ==
[2021-10-30 08:14] LABS: Alanine Aminotransferase 25 U/L (0-31); Albumin Level 3.8 g/dL (3.5-5.0); Alkaline Phosphatase 92 U/L (39-117); Anion Gap 12 (12-20); Aspartate Amino Transferase 24 U/L (5-31); Bilirubin Total 0.8 mg/dL (0.0-1.0); Blood Urea Nitrogen 19 mg/dL (9-16); Calcium 8.9 mg/dL (8.4-10.2); Carbon Dioxide 27 mmol/L (22-29); Chloride 107 mmol/L (96-108); Estimated Glomerular Filt Rate 41; Glucose Random 99 mg/dL (60-115); Phosphorus 3.5 mg/dL (2.7-4.5); Potassium 4.7 mmol/L (3.3-5.1); Sodium 141 mmol/L (135-145)
[2021-10-30 08:55] LABS: Free T4 (Free Thyroxine) 0.89 ng/dL (0.71-1.85)
[2021-10-30 08:59] LABS: Vitamin D 25-OH Total 44.4 ng/mL (>30)
[2021-10-31 16:31] LABS: Calcium (PTHI) 9.1 mg/dL (8.6-10.4); PTHI 77 pg/mL (14-64)
[2021-11-01 02:21] LABS: Triiodothyronine T3 Total 95 ng/dL (76-181)
== END 2021-10-30 07:24 | disposition home or self-care (01) ==
LOC: HO.LAB 07:23
PROVIDERS: PCP Internal Medicine; Visit Provider Internal Medicine
DX: E04.9 Nontoxic goiter, unspecified (principal); E05.90 Thyrotoxicosis, unspecified without thyrotoxic crisis or storm; E21.3 Hyperparathyroidism, unspecified; E55.9 Vitamin D deficiency, unspecified
CPT/HCPCS: 36415; 80053; 82306; 83970; 84100; 84439; 84443; 84480

== ENCOUNTER 2022-02-27 09:19 | Outpatient (REF) | payer MEDICAID, SELFPAY ==
--- NOTE | ~2022-02-27 | MR_ITS ---
EXAMINATION: MR LUMBAR SPINE WITHOUT CONTRAST CLINICAL INFORMATION: 81-year-old with right leg pain and paresthesia of skin. Polyneuropathy. COMPARISON: None TECHNIQUE: MRI of the lumbar spine was obtained using routine sequences without contrast. FINDINGS: Coronal Alignment: Mild mid lumbar dextrocurvature noted. Sagittal Alignment: There is 3 mm of grade 1 degenerative spondylolisthesis at L5-S1 without spondylolysis. Lumbosacral Junction: Normal. 5 mer-pxu-ilcwnes lumbar vertebra. Vertebral Bodies: Mild chronic loss of height of the posterior aspect of the L5 vertebral body likely reflecting remodeling. Remaining vertebral body heights are well-maintained. Disc Spaces and Endplates: Mild disc space height loss posteriorly at L5-S1 with disc desiccation and spondylosis. Remaining lumbar intervertebral disc space heights are well-maintained with multilevel disc desiccation noted and mild degrees of anterior marginal spondylosis. Endplates appear intact. Visualized lower thoracic levels demonstrate anterolateral spondylosis asymmetric to the right, most prominently seen at T10-T11. Spinal Canal: There is epidural lipomatosis throughout the mid to lower lumbar canal with a constricted appearance to the dural sac with thecal sac deformity associated with this. Short pedicles are also noted consistent with a component of developmental spinal canal stenosis. Bone Marrow: No significant marrow-replacing process or bone marrow edema. Conus Medullaris: Terminates at L1-L2. Morphology and signal is normal. Intradural Nerve Roots: Multilevel crowding of the intradural nerve roots. See below. L5-S1: Unroofing of the posterior disc margin is noted consistent with grade 1 degenerative spondylolisthesis, with severe bilateral facet arthrosis and marked ligamentum flavum thickening. There is superimposed diffuse disc bulging and there is severe spinal canal stenosis with marked crowding of the intradural nerve roots. There is severe left subarticular recess stenosis, with impingement on the traversing left S1 nerve root. Severe bilateral neuroforaminal stenosis is noted with bilateral L5 nerve root impingement. Bilateral facet joint effusions are noted. L4-L5: Diffuse disc bulging is noted, with flattening of the ventral dural sac with a prominent dorsal epidural fat pad and marked ligamentum flavum thickening. There is moderate right-sided and zhgsbgxg-fh-zwnqme left-sided facet hypertrophic degenerative change. There is hinu-bq-knfgimll central spinal canal stenosis and there is moderate bilateral subarticular recess stenosis. There is sqmw-oi-mijdmhvk bilateral neuroforaminal stenosis. L3-L4: Mild diffuse disc bulging is noted with flattening of the ventral dural sac with a prominent dorsal epidural fat pad, marked ligamentum flavum thickening and moderate bilateral facet arthropathy. There is vzekkhzr-oq-ywjrvm central spinal canal stenosis with crowding of the intradural nerve roots, with moderate crowding of the subarticular zones bilaterally. There is moderate bilateral neuroforaminal stenosis, with mild encroachment on the exiting L3 nerve roots bilaterally. L2-L3: No significant disc bulge or herniation. Xagz-qz-hwymzoqm bilateral facet arthrosis is noted with a prominent dorsal epidural fat pad and ligamentum flavum thickening. There is a 0.7 x 0.5 x 0.2 cm synovial cyst along the medial aspect of the right facet joint. Mild central spinal canal stenosis is noted without significant lateral recess stenosis. There is moderate left-sided neuroforaminal stenosis. L1-L2: No significant disc bulge or herniation. Mild ligamentum flavum thickening with minor facet arthrosis noted. No significant canal or neuroforaminal stenosis. Paraspinal/Retroperitoneal: The visualized paravertebral soft tissues appear unremarkable. There is a partially imaged 1.1 cm simple-appearing cortical cyst in the lower pole of the right kidney. Small simple-appearing parapelvic cysts lower pole left kidney as well. Limited evaluation.?No specific follow up recommended based on the current ACR Best Practice Guidelines.? MR/MR lumbar spine wo con IMPRESSION: 1. Grade 1 degenerative spondylolisthesis at L5-S1 with mild mid lumbar dextrocurvature. 2. Multilevel discogenic degenerative changes and spondylosis as detailed above. There is underlying developmental spinal canal stenosis and epidural lipomatosis with superimposed multilevel disc bulging and extensive multilevel posterior element hypertrophic degenerative changes, most apparent at L5-S1 bilaterally. 3. Severe spinal canal stenosis at L5-S1 with severe left subarticular recess stenosis and probable encroachment on the traversing left S1 nerve root with severe bilateral neuroforaminal stenosis at this level with bilateral L5 nerve root impingement. 4. Fwfm-uj-nakrvzvl spinal canal stenosis at L4-L5 with wrdv-pb-ygjuoahd bilateral neuroforaminal stenosis at this level, famatclt-uk-xmtsse spinal canal stenosis at L3-L4 with moderate bilateral neuroforaminal stenosis, with encroachment on the exiting L3 nerve roots bilaterally, mild spinal canal stenosis at L2-L3.
== END 2022-02-27 09:20 | disposition home or self-care (01) ==
LOC: HO.MRI 09:19
PROVIDERS: Visit Provider Internal Medicine
DX: G62.9 Polyneuropathy, unspecified (principal); M79.604 Pain in right leg; R20.2 Paresthesia of skin
CPT/HCPCS: 72148

== ENCOUNTER → 2022-04-10 09:06 | Outpatient (BNVA) | payer MEDICAID, SELFPAY | PROVIDERS: PCP Internal Medicine; Visit Provider Nurse Practitioner Family | DX: M48.062 Spinal stenosis, lumbar region with neurogenic claudication (principal); M25.561 Pain in right knee; M25.562 Pain in left knee; M62.838 Other muscle spasm; M47.816 Spondylosis without myelopathy or radiculopathy, lumbar region; M51.36 Other intervertebral disc degeneration, lumbar region | CPT/HCPCS: 99202 ==

== ENCOUNTER → 2022-04-17 11:07 | Outpatient (BNVA) | payer MEDICAID, SELFPAY | PROVIDERS: PCP Internal Medicine; Visit Provider Orthopaedic Surgery | DX: M17.12 Unilateral primary osteoarthritis, left knee (principal); M51.36 Other intervertebral disc degeneration, lumbar region | CPT/HCPCS: 20610; 99212; J1100 ==

== ENCOUNTER → 2022-05-12 15:20 | Outpatient (BNVA) | payer MEDICAID, SELFPAY | PROVIDERS: PCP Internal Medicine; Visit Provider Nurse Practitioner Family | DX: M46.1 Sacroiliitis, not elsewhere classified (principal) | CPT/HCPCS: 99212 ==

== ENCOUNTER 2022-05-15 08:05 | Outpatient (REF) | payer MEDICARE, MEDICAID, SELFPAY ==
[2022-05-15 09:23] LABS: Alanine Aminotransferase 15 U/L (0-31); Albumin Level 4.1 g/dL (3.5-5.0); Alkaline Phosphatase 81 U/L (39-117); Anion Gap 14 (12-20); Aspartate Amino Transferase 21 U/L (5-31); Bilirubin Total 0.9 mg/dL (0.0-1.0); Blood Urea Nitrogen 23 mg/dL (9-16); Calcium 9.2 mg/dL (8.4-10.2); Carbon Dioxide 24 mmol/L (22-29); Chloride 104 mmol/L (96-108); Estimated Glomerular Filt Rate 35; Glucose Random 124 mg/dL (60-115); Phosphorus 3.6 mg/dL (2.7-4.5); Potassium 5.1 mmol/L (3.3-5.1); Sodium 137 mmol/L (135-145); Total Protein 7.6 g/dL (6.5-8.0)
[2022-05-15 09:44] LABS: Free T4 (Free Thyroxine) 0.87 ng/dL (0.71-1.85); Thyroid Stimulating Hormone 0.94 uIU/mL (0.32-4.0); Vitamin D 25-OH Total 40.1 ng/mL (>30)
[2022-05-15 10:18] LABS: Creatinine, mg/dL 24.77
[2022-05-15 12:40] LABS: Creatinine, 24Hr Urine 0.7 G/Day (1.0-2.0); Total Volume 24 Hour Urine 2800 mL
[2022-05-17 03:41] LABS: Triiodothyronine T3 Total 91 ng/dL (76-181)
[2022-05-18 17:12] LABS: Calcium, 24 Hr Urine 34 mg/24 h; Calcium/Creatinine Ratio 46 mg/g creat (30-275); Creatinine 24Hr Urine 0.73 g/24 h (0.50-2.15)
[2022-05-20 22:42] LABS: PTHI 65 pg/mL (16-77)
== END 2022-05-15 08:06 | disposition home or self-care (01) ==
LOC: HO.LAB 08:05
PROVIDERS: PCP Internal Medicine; Visit Provider Internal Medicine
DX: E78.00 Pure hypercholesterolemia, unspecified (principal); E04.9 Nontoxic goiter, unspecified; E05.90 Thyrotoxicosis, unspecified without thyrotoxic crisis or storm; E55.9 Vitamin D deficiency, unspecified
CPT/HCPCS: 36415; 80053; 82306; 82340; 82570; 83970; 84100; 84439; 84443; 84480

== ENCOUNTER 2022-05-21 14:36 | Outpatient (REF) | payer MEDICARE, MEDICAID, SELFPAY ==
[2022-05-21 14:59] LABS: MANUAL DIFF FLAG NO
[2022-05-21 15:26] LABS: Basophils Percent Auto 0.4 % (0-2); Eosinophils Absolute Auto 0.1 X10*3/uL (0.0-0.4); Eosinophils Percent Auto 1.7 % (0-4); Hematocrit 38.8 % (37.0-47.0); Hemoglobin 11.9 g/dl (12.0-16.0); Imm Gran Abs Auto 0.01 X10*3/uL (0.00-0.03); Imm Gran Pct Auto 0.2 % (0.0-0.4); Mean Corpuscular HGB Conc 30.7 g/dl (31.0-35.0); Mean Corpuscular Hemoglobin 26.4 pg (27.0-33.0); Mean Platelet Volume 12.1 fL (9.4-12.3); Monocytes Absolute Auto 0.6 X10*3/uL (0.1-1.2); Monocytes Percent Auto 11.6 % (2-11); Neutrophils Absolute Auto 2.1 x10*3/uL (2.0-8.3); Neutrophils Percent Auto 44.1 % (45-73); Platelet Count 129 X10*3/uL (160-400); Red Blood Count 4.51 X10*6/uL (4.20-5.50); Red Cell Distribution Width 13.6 % (11.0-16.0); White Blood Count 4.8 X10*3/uL (4.8-10.8)
[2022-05-21 15:43] LABS: Anion Gap 12 (12-20); Blood Urea Nitrogen 28 mg/dL (9-16); Calcium 9.1 mg/dL (8.4-10.2); Carbon Dioxide 31 mmol/L (22-29); Chloride 102 mmol/L (96-108); Estimated Glomerular Filt Rate 32; Magnesium 2.1 mg/dL (1.6-2.6); Phosphorus 4.3 mg/dL (2.7-4.5); Potassium 5.6 mmol/L (3.3-5.1); Sodium 139 mmol/L (135-145)
[2022-05-21 16:04] LABS: Vitamin D 25-OH Total 46.5 ng/mL (>30)
[2022-05-21 17:42] LABS: Appearance Urine CLEAR; Color Urine YELLOW; Glucose Urine UA NEG (NEG); Leukocyte Esterase Urine 1+ (NEG); Nitrite Urine NEG (NEG); Specific Gravity - Urine <= 1.005 (1.005-1.025); Urine Blood NEG (NEG); Urine Ketones NEG (NEG); Urine Protein NEG (NEG-TRACE)
[2022-05-21 17:56] LABS: Total Protein Urine Random < 7 mg/dL (<12)
[2022-05-21 18:16] LABS: Bacteria Urine 1+ /LPF; RBC Urine 0 /HPF (0); Squamous Epithelial Cell Urine 3+ /LPF
[2022-05-22 13:08] LABS: Calcium (PTHI) 9.4 mg/dL (8.6-10.4); PTHI 102 pg/mL (16-77)
== END 2022-05-21 14:37 | disposition home or self-care (01) ==
LOC: HO.LAB 14:36
PROVIDERS: PCP Internal Medicine; Visit Provider Internal Medicine Nephrology
DX: I12.9 Hypertensive chronic kidney disease with stage 1 through stage 4 chronic kidney disease, or unspecified chronic kidney disease (principal); N18.32 Chronic kidney disease, stage 3b; N25.0 Renal osteodystrophy
CPT/HCPCS: 36415; 80051; 81001; 82040; 82043; 82306; 82310; 82565; 83735; 83970; 84100; 84156; 84520; 85025; 87086

== ENCOUNTER → 2022-05-22 11:23 | Outpatient (BNVA) | payer MEDICARE, MEDICAID, SELFPAY | PROVIDERS: PCP Internal Medicine; Visit Provider Nurse Practitioner Family | DX: M46.1 Sacroiliitis, not elsewhere classified (principal); M51.36 Other intervertebral disc degeneration, lumbar region; M47.816 Spondylosis without myelopathy or radiculopathy, lumbar region; M62.838 Other muscle spasm | CPT/HCPCS: Q3014 ==

== ENCOUNTER 2022-06-16 06:13 | Outpatient (REF) | payer MEDICARE, MEDICAID, SELFPAY ==
--- NOTE | ~2022-06-16 | FL_ITS ---
EXAMINATION: XR FLUOROSCOPY WITH IMAGES CLINICAL INFORMATION: M46.1 - Sacroiliitis, not elsewhere classified COMPARISON: MR lumbar spine 02/27/2022 TECHNIQUE: Fluoroscopy performed by Dr. Hans Palafox. Fluoroscopy time: 0.3 minutes. Cumulative Dose: 12.9 mGy. DAP: 3.52 Gy-cm2. Images: 2. FINDINGS: Spinal needle overlies the bilateral mid to lower SI joints. There is contrast in the periarticular soft tissues with probable early intra-articular contrast. No vasculature communication appreciated. FL/FL guidance in treatment room IMPRESSION: Fluoroscopy for pain management procedure.
== END 2022-06-16 06:14 | disposition home or self-care (01) ==
LOC: HO.RADIR 06:13
PROVIDERS: Visit Provider Anesthesiology
DX: M46.1 Sacroiliitis, not elsewhere classified (principal); M47.816 Spondylosis without myelopathy or radiculopathy, lumbar region; M62.838 Other muscle spasm; M51.36 Other intervertebral disc degeneration, lumbar region
CPT/HCPCS: 27096

== ENCOUNTER → 2022-06-23 10:22 | Outpatient (BNVA) | payer MEDICARE, MEDICAID, SELFPAY | PROVIDERS: PCP Internal Medicine; Visit Provider Nurse Practitioner Family | DX: M46.1 Sacroiliitis, not elsewhere classified (principal); M51.36 Other intervertebral disc degeneration, lumbar region; M47.816 Spondylosis without myelopathy or radiculopathy, lumbar region; M62.838 Other muscle spasm; M25.561 Pain in right knee; M25.562 Pain in left knee; G89.29 Other chronic pain; Z79.899 Other long term (current) drug therapy | CPT/HCPCS: 99212 ==

== ENCOUNTER 2022-07-11 13:58 | Emergency (ER) | payer MEDICARE, MEDICAID, SELFPAY ==
[2022-07-11 14:00] VITALS: BP 138/61; PULSE 63; RESP 17; TEMP 35.7; O2SAT 95; BMI 27.4
--- NOTE | 2022-07-11 15:57 | ED_ITS ---
HPI - Extremity Problem General Chief complaint: Extremity Problem Stated complaint: L knee swelling no inj Time Seen by Provider: 07/11/22 15:03 Source: patient Mode of arrival: ambulatory Limitations: language barrier (Welsh-speaking medical office technician offered patient requesting to use daughter as want ad receiver) History of Present Illness HPI Narrative: Patient presents to emergency department with her daughter for evaluation of chronic left knee pain with associated leg swelling numbness and tingling. States that the pain has been present for at least 3 years. She has received cortisone injections to the left knee in the past. Stating most recently having received in April of 2022. She states she had no response to this. However since then, she states that her pain has been worse. She feels numbness and tingling to the knee/calf. Swelling to the knee/calf. She denies any recent trauma or fall. She is being followed by Orthopedics as well as pain management, with a plan to have left saphenous nerve block 07/23/2022. She has tried multiple pain medications including acetaminophen, NSAIDs, tramadol and gabapentin reportedly without any relief. Denies any prior history of DVT/PE, cancer, coagulation disorders, use of hormones, prolonged immobilization, or recent surgery. Denies chest pain, shortness of breath, difficulty breathing. Related Data Home Medications Medication Instructions Recorded Confirmed atorvastatin 20 mg tablet 20 mg PO DAILY 08/29/20 06/23/22 metoprolol succinate 50 mg 50 mg PO DAILY 08/29/20 06/23/22 tablet,extended release 24 hr trazodone 100 mg tablet 100 mg PO DAILY 08/29/20 06/23/22 fluticasone propionate 50 1 - 2 spray intranasal DAILY PRN 07/10/21 06/23/22 mcg/actuation nasal Nasal Congestion spray,suspension gabapentin 300 mg capsule 1 cap PO BEDTIME 07/10/21 06/23/22 Previous Rx's Medication Instructions Recorded cholecalciferol (vitamin D3) 25 25 mcg PO DAILY 30 days #30 caps 11/19/21 mcg (1,000 unit) capsule methimazole 5 mg tablet 2.5 mg PO DAILY 30 days #15 tabs 05/25/22 Allergies Allergy/AdvReac Type Severity Reaction Status Date / Time No Known Allergies Allergy Verified 06/23/22 10:29 Review of Systems Review of Systems: Constitutional: No weight loss. No fever. No chills. No weakness. No fatigue. Skin: No rash. No itching. Cardiovascular: No chest pain. No chest pressure. No palpitations. No pedal edema. Respiratory: No shortness of breath. No cough. No sputum production. Gastrointestinal: No nausea. No vomiting. No diarrhea. No abdominal pain. Genitourinary: No burning micturition. No urinary frequency. No incontinence. Neurologic: No headache. No dizziness. Musculoskeletal: Positive knee pain Hematologic: No bleeding. No bruising. Psychiatric:No depression. No anxiety. Endocrine: No polyuria. No polydipsia. Yes all other systems are reviewed and are negative PMFSH Past Medical History Attestation statement: The following information was validated with the patient. Source: old records reviewed Medical History Effusion, left knee Goiter High cholesterol Hyperparathyroidism Hypertension Left knee pain On beta april at home Renal impairment Subclinical hyperthyroidism Vitamin D deficiency Surgical History H/O colonoscopy History of esophagogastroduodenoscopy (EGD) Hx of cataract extraction Hx of hysterectomy Family History Family History Father No problems noted. Mother No problems noted. Social History Social History Household Members Other:: lives with her daughter Alcohol intake: never Patient Tobacco Use Status: Never used Tobacco Advance Directives: No Advance Directives Information Provided: No Current occupational status: unemployed Physical Exam Vital Signs: Vital Signs: Last Vital Signs Temp 96.2 F L 07/11/22 14:00 Pulse 63 07/11/22 14:00 Resp 17 07/11/22 14:00 BP 138/61 07/11/22 14:00 Pulse Ox 95 07/11/22 14:00 O2 Del Method 07/11/22 14:00 BMI result Body Mass Index 27.4 Appearance: Alert.?Oriented to person, place and time. No acute distress.?Normal affect. Eyes: Pupils equal, round and reactive to light.? ENT: Pharynx normal.?? Neck: Normal inspection.? Neck supple.?? CVS: Heart sounds normal. Normal heart rate and rhythm.? Pulses normal.?? Respiratory: No respiratory distress.? Lung sounds clear to auscultation bilaterally?? Abdomen: Soft and non-tender. ?? Skin: Skin warm and dry.? Normal skin color.? Normal skin turgor.?? Extremities: No significant lower extremity swelling, no pedal edema. 2+ DP/PT pulse bilaterally. Left knee with swelling, effusion, no erythema, warmth, rash, or skin discoloration. Mild calf tenderness upon palpation. ? Neuro: Moves all extremities spontaneously. Sensation intact bilaterally. 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 She presents emergency department today for evaluation of chronic left knee pain and reports concern for blood clot secondary to her symptoms. No risk factors for DVT, Wells score negative, however she does have tenderness upon palpation of her calf, patient crying during exam expressing fear for blood clot as her symptoms have been ongoing. Will obtain ultrasound of the lower extremity to exclude. No recent trauma or injury therefore we will forego repeat radiographic imaging of the knee. Her pain does sound consistent with rib for of her chronic left knee pain, no overt changes over the past few months by her report and when compared to notes from orthopedic/pain management. Disposition will be pending ultrasound results. Reevaluation(s) Reevaluation #1: Advised by nursing staff that patient not present in room or daughter. Checked bathrooms and waiting room, patient not present. Waited 15 minutes and patient did not return back to the room. Suspect that she eloped at this time. Ultrasound was not obtained prior to elopement. MDM - Extremity (Nontraumatic) Medical Records Attestation: I reviewed the patient's medical records. Discharge Plan Discharge Clinical Impression: Left knee pain Patient Disposition: Elopement Prescriptions: No Action cholecalciferol (vitamin D3) 25 mcg (1,000 unit) capsule 25 mcg PO DAILY 30 Days Qty: 30 11RF methimazole 5 mg tablet 2.5 mg PO DAILY 30 Days Qty: 15 11RF gabapentin 300 mg capsule 1 cap PO BEDTIME fluticasone propionate 50 mcg/actuation spray,suspension 1 - 2 spray intranasal DAILY PRN (Reason: Nasal Congestion) metoprolol succinate 50 mg tablet extended release 24 hr 50 mg PO DAILY atorvastatin 20 mg tablet 20 mg PO DAILY trazodone 100 mg tablet 100 mg PO DAILY Interventions: ED Discharge Assessment Last Done: 07/11/22 17:53 Discharge Date/Time: 07/11/22 17:54
== END 2022-07-11 17:54 | disposition left against medical advice (07) ==
PROVIDERS: Emergency Provider Emergency Medicine; PCP Internal Medicine
DX: M25.562 Pain in left knee (principal); I10 Essential (primary) hypertension; E78.00 Pure hypercholesterolemia, unspecified; Z79.02 Long term (current) use of antithrombotics/antiplatelets; Z79.899 Other long term (current) drug therapy
CPT/HCPCS: 99282

== ENCOUNTER 2022-07-17 10:46 | Outpatient (RCR) | payer MEDICARE, MEDICAID, SELFPAY ==
--- NOTE | 2022-07-17 16:45 | MHC.PT.EP ---
[facility] [place] Office [place] Office [place] Office [address] [phone] F: [phone] F: [phone] F: [phone] F: [phone] Physical Therapy Plan of Care Date of Evaluation: Date of Surgery: NA Diagnosis: INTERVERTEBRAL DISC DEGENERATION LUMBAR Assessment: Pt IS 81 YO F REFERRED TO PT FROM PAIN MANAGEMENT WITH LUMBAR DISC DEGENERATION. Pt'S DTR WITH HER DURING EVAL TO INTERPRET AND HELP WITH HX. SHE REPORTS Pt'S BACK IS FEELING BETTER SINCE INJECTIONS, BUT HER L KNEE HAS BEEN VERY PAINFUL SINCE SHE HAD INJECTION FROM ORTHO MONTHS AGO. SIGNIF SWELLING NOTE. Pt HAD GONE TO ER LAST WEEK BECAUSE OF PAIN AND FEAR OF DVT BUT DIDNT STAY FOR US BECAUSE OF LONG WAIT. PRESENTS WITH SWELLING L LE WITH TTP AND PAIN L KNEE, NEG MODIFIED HOMANS FOR CALF PAIN BUT + FOR L KNEE PAIN. THIS PT CALLED PCP RE L LE (HAD TO LEAVE MSG..UNABLE TO SPEAK WITH PCP OR TRIAGE NURSE) RECOMMENDED Pt GO TO WALK IN CLINIC AT [facility]. MAY NEED BLOOD WORK TO R/O GOUT OR KNEE XRAY/ORTHO CONSULT. WILL NEED NEW SCRIPT/KNEE DX ADDED TO SCRIIPT FROM PX MANAGEMENT FOR TREATMENT Frequency and Duration: The patient will be seen 2X/WK X 6 WKS Short Term Goals: 1. DECREASED L LE SWELLING NOTED 2. IMPROVED GT PATTERN (INCREASED WB JOANNA) WITH LRAD 3. CREATE FURTHER GOALS BASED ON EVAL FINDINGS FOR KNEE Chcf Goals: 1. I HEP WITH DC EX PLAN Treatment Plan: Modalities to reduce pain, spasms and effusion. Manual therapy to restore motion and function. Therapeutic exercise to improve strength and flexibility. Neuromuscular re-education for posture and balance. Therapeutic activities to return to functional activities of daily living. Electronically signed by: THELMA COTTON PT Please sign and return to therapist. Thank you for your referral.
--- NOTE | 2022-08-14 16:24 | MHC.PT.DC ---
[facility] [place] Office [place] Office [place] Office [address] Melissa Bermeo [address] [phone] F: [phone] F: [phone] F: [phone] F: [phone] Physical Therapy Discharge Report Diagnosis: INTERVERTEBRAL DISC DEGENERATION LUMBAR Date of Surgery: NA Date of Evaluation: 07/17/22 Date of Discharge: 08/14/22 Treatments to Date: Cancellations to Date: No Shows to Date: Discharge Status: Recommend MD Follow-up Discharge Summary: Pt SEEN FOR INIT EVAL ONLY. AT THAT TIME.. Pt IS 81 YO F REFERRED TO PT FROM PAIN MANAGEMENT WITH LUMBAR DISC DEGENERATION. Pt'S DTR WITH HER DURING EVAL TO INTERPRET AND HELP WITH HX. SHE REPORTS Pt'S BACK IS FEELING BETTER SINCE INJECTIONS, BUT HER L KNEE HAS BEEN VERY PAINFUL SINCE SHE HAD INJECTION FROM ORTHO MONTHS AGO. SIGNIF SWELLING NOTE. Pt HAD GONE TO ER LAST WEEK BECAUSE OF PAIN AND FEAR OF DVT BUT DIDNT STAY FOR US BECAUSE OF LONG WAIT. PRESENTS WITH SWELLING L LE WITH TTP AND PAIN L KNEE, NEG MODIFIED HOMANS FOR CALF PAIN BUT + FOR L KNEE PAIN. THIS PT CALLED PCP RE L LE (HAD TO LEAVE MS..UNABLE TO SPEAK WITH PCP OR TRIAGE NURSE) RECOMMENDED Pt GO TO WALK IN CLINIC AT [facility]. MAY NEED BLOOD WORK TO R/O GOUT OR KNEE XRAY/ORTHO CONSULT. WILL NEED NEW SCRIPT/KNEE DX ADDED TO SCRIIPT FROM PX MANAGEMENT FOR TREATMENT Pt CANCELLED HER NEXT VISIT PER MD ORDER TO HOLD PT. HAD MRI 08/10 +MENISCAL TEAR. WILL DC THIS RECORD AT THIS TIME. [ End ] Electronically signed by: THELMA COTTON PT Please sign and return to therapist. Thank you for your referral.
== END 2022-08-14 16:25 | disposition home or self-care (01) ==
LOC: HO.PT 10:46
PROVIDERS: PCP Internal Medicine; Visit Provider Nurse Practitioner Family
DX: M51.36 Other intervertebral disc degeneration, lumbar region (principal); M46.1 Sacroiliitis, not elsewhere classified; M47.26 Other spondylosis with radiculopathy, lumbar region
CPT/HCPCS: 97162

== ENCOUNTER 2022-07-29 06:34 | Outpatient (REF) | payer MEDICARE, MEDICAID, SELFPAY | END 2022-07-29 06:35 | disposition home or self-care (01) | LOC: HO.RADIR 06:34 | PROVIDERS: Visit Provider Internal Medicine | DX: M17.12 Unilateral primary osteoarthritis, left knee (principal); M25.561 Pain in right knee | CPT/HCPCS: 99212 ==

== ENCOUNTER 2022-08-10 12:40 | Outpatient (REF) | payer MEDICARE, MEDICAID, SELFPAY ==
--- NOTE | ~2022-08-10 | MR_ITS ---
EXAMINATION: MR KNEE WITHOUT CONTRAST, LEFT CLINICAL INFORMATION: Left knee pain and swelling. Osteoarthritis. COMPARISON: None. TECHNIQUE: MRI of the knee without contrast was performed using routine sequences on a high-field scanner. FINDINGS: MENISCI: Medial Meniscus: Near-complete radial tear of the posterior body/posterior horn junction measuring up to 0.6 cm with medial extrusion of the meniscal body. Complex tearing extending through the posterior horn with a dominant oblique inner margin component. Lateral Meniscus: Minimal inner margin fraying of the meniscal body. LIGAMENTS: Cruciate: Intact. Collateral: Intact. EXTENSOR MECHANISM: Superior patellar enthesophytes. Intact quadriceps and patellar tendons. ARTICULAR CARTILAGE/BONE: Patellofemoral Compartment: Medial trochlear articular cartilage signal heterogeneity. Mild patellar articular cartilage signal heterogeneity. Tiny marginal osteophytes. Medial Compartment: Articular cartilage thinning with full-thickness loss at the weightbearing medial femoral condyle and medial tibial plateau with mild underlying subchondral cystic change. Marginal osteophytes. Lateral Compartment: Intact articular cartilage. JOINT FLUID AND BURSAE: Htjti-hm-llojmzif joint effusion and small Cantu's cyst with prominent synovitis/edema. MR/MR knee LT wo con IMPRESSION: 1. Near-complete radial tear of the medial meniscus posterior body/horn junction with medial extrusion of the meniscal body. Complex tearing extending through the posterior horn with a dominant oblique inner margin component. 2. Minimal inner margin fraying of the lateral meniscal body. 3. Moderate medial as well as mild patellofemoral compartment osteoarthritis. Jolcy-ie-gztokwjg joint effusion and small Cantu's cyst with prominent synovitis.
== END 2022-08-10 12:41 | disposition home or self-care (01) ==
LOC: HO.MRI 12:40
PROVIDERS: Visit Provider Internal Medicine
DX: M17.12 Unilateral primary osteoarthritis, left knee (principal)
CPT/HCPCS: 73721

== ENCOUNTER → 2022-08-31 09:09 | Outpatient (BNVA) | payer MEDICARE, MEDICAID, SELFPAY | PROVIDERS: PCP Internal Medicine; Visit Provider Orthopaedic Surgery | DX: M17.12 Unilateral primary osteoarthritis, left knee (principal); M25.462 Effusion, left knee | CPT/HCPCS: 20610; 99212; J1100 ==

== ENCOUNTER 2022-10-16 11:00 | Outpatient (RCR) | payer MEDICARE, MEDICAID, SELFPAY ==
--- NOTE | 2022-09-09 14:42 | MHC.PT.EP ---
[facility] [place] Office [place] Office [place] Office [address] Melissa Bermeo [address] [phone] F: [phone] F: [phone] F: [phone] F: [phone] Physical Therapy Plan of Care Date of Evaluation: Date of Surgery: Diagnosis: OA LEFT KNEE Assessment: 81 YO FEMALE REF TO PT W 1 YR H/O PROGRESSIVE Lt KNEE PAIN (ON MRI Pt HAS Lt PATELLAR OA, SIGNIF MED MENISCAL TEAR, LATERAL MENISCAL FRAYING). Pt RESIDES ALONE W DTR NEARBY- SHE HAS RELIEF WHEN Lt KNEE IS ASPIRATED AND INJECTED. OBJECTIVE FINDINGS INCLUDE DECR ROM LEFT KNEE, Lt LE STRENGTH DEFICITS, (+) LLD, (+) SWELLING Lt KNEE, AND PAIN IN MED > LAT/ PERIPATELLAR REGION. FUNCTIONALLY, Pt IS LIMITED W STANDING, WALKING-LEVEL AND STAIRS, INCR UEs USE W TRANSFERS SIT <-> STAND, AND DECR JJ TO LAUNDRY/SHOPPING/HOUSECHORES. Pt WOULD BENEFIT FROM PT TO ADDRESS PAIN, SWELLING, ROM, STRENGTH, LLI, AND DEV A HEP/ SX MGMT TECHN. Frequency and Duration: The patient will be seen 2 x WK x 5 WKS Short Term Goals: 3 WKS * Pt'S Lt KNEE PAIN DECR TO 2-01/22 *Pt DEMON IMPROVED ROM Lt KNEE *IMPROVE GAIT MECH , MONITOR LLI ROM AND STRENGTH ADDRESSED, W CANE ON LEVEL SURFACES AND STAIRS *INITIATE HEP TO ADDRESS STRENGTH AND STABILITY IN LUMBOPELVIC/HIP/LEFT LE Educational Speech Language Clinician Goals: 5 WKS: Pt INDEP W PROGRESSIVE HEP AND SELF-SX MGMT TECHN FOR LEFT KNEE SXS Pt IMPROVE FUNCT MOB JJ-> IMPROVE LEFI BY AT LEAST 8 - 10 POINTS (AT EVAL ) Pt DEMON EFFICIENT GAIT MECH ON LEVEL GROUND AND STAIRS-> RESUME REG SHOPPING, FITNESS WALKING Treatment Plan: Modalities to reduce pain, spasms and effusion. Manual therapy to restore motion and function. Therapeutic exercise to improve strength and flexibility. Neuromuscular re-education for posture and balance. Therapeutic activities to return to functional activities of daily living. Electronically signed by: Tuyet Mcfarland,PT Please sign and return to therapist. Thank you for your referral.
--- NOTE | 2022-10-16 15:06 | MHC.PT.DC ---
[facility] [place] Office [place] Office [place] Office [address] Melissa Bermeo [address] [phone] F: [phone] F: [phone] F: [phone] F: [phone] Physical Therapy Discharge Report Diagnosis: OA LEFT KNEE Date of Surgery: Date of Evaluation: 09/09/22 Date of Discharge: 10/16/22 Treatments to Date: 10 Cancellations to Date: 1 No Shows to Date: Discharge Status: Achieved Goals Improved Function Independent with HEP Discharge Summary: Pt MET PT GOALS AT THIS TIME, SHE HAS IMPROVED AROM AND STRENGTH IN LEFT LE, MORE EFFICIENT GAIT MECH W AND W/O CANE ON LEVEL GROUND AND STAIRS- HER SUBJECTIVE LEFT KNEE PAIN FLUCTUATES, BUT REMAINS SIGNIF LESS THAN PRIOR TO PT Electronically signed by: NORRIS POLLACK,PT Please sign and return to therapist. Thank you for your referral.
== END 2022-10-16 15:08 | disposition home or self-care (01) ==
LOC: HO.PT 11:00
PROVIDERS: PCP Internal Medicine; Visit Provider Orthopaedic Surgery
DX: M17.12 Unilateral primary osteoarthritis, left knee (principal); M25.462 Effusion, left knee
CPT/HCPCS: 97035; 97110; 97140; 97162

== ENCOUNTER → 2022-11-23 09:28 | Outpatient (BNVA) | payer MEDICARE, MEDICAID, SELFPAY | PROVIDERS: PCP Internal Medicine; Visit Provider Internal Medicine | DX: E05.90 Thyrotoxicosis, unspecified without thyrotoxic crisis or storm (principal); E21.3 Hyperparathyroidism, unspecified; E55.9 Vitamin D deficiency, unspecified; E04.9 Nontoxic goiter, unspecified | CPT/HCPCS: 99212 ==

== ENCOUNTER 2022-11-23 10:15 | Outpatient (REF) | payer MEDICARE, MEDICAID, SELFPAY ==
[2022-11-23 14:00] LABS: Alanine Aminotransferase 11 U/L (0-31); Alkaline Phosphatase 92 U/L (39-117); Anion Gap 13 (12-20); Aspartate Amino Transferase 17 U/L (5-31); Bilirubin Total 0.8 mg/dL (0.0-1.0); Blood Urea Nitrogen 18 mg/dL (9-16); Calcium 9.5 mg/dL (8.4-10.2); Carbon Dioxide 27 mmol/L (22-29); Chloride 103 mmol/L (96-108); Estimated Glomerular Filt Rate 38; Glucose Random 122 mg/dL (60-115); Phosphorus 3.3 mg/dL (2.7-4.5); Potassium 5.3 mmol/L (3.3-5.1); Sodium 138 mmol/L (135-145); Total Protein 7.5 g/dL (6.5-8.0)
[2022-11-23 14:08] LABS: Free T4 (Free Thyroxine) 1.36 ng/dL (0.71-1.85); Thyroid Stimulating Hormone 1.17 uIU/mL (0.32-4.0); Vitamin D 25-OH Total 46.5 ng/mL (>30)
[2022-11-24 12:58] LABS: Calcium (PTHI) 9.4 mg/dL (8.6-10.4); PTHI 72 pg/mL (16-77)
[2022-11-25 01:54] LABS: Triiodothyronine T3 Total 115 ng/dL (76-181)
== END 2022-11-23 10:16 | disposition home or self-care (01) ==
LOC: HO.10HDL 10:15
PROVIDERS: Visit Provider Internal Medicine
DX: E05.90 Thyrotoxicosis, unspecified without thyrotoxic crisis or storm (principal); E21.3 Hyperparathyroidism, unspecified; E55.9 Vitamin D deficiency, unspecified; E04.9 Nontoxic goiter, unspecified
CPT/HCPCS: 36415; 80053; 82306; 83970; 84100; 84439; 84443; 84480

== ENCOUNTER 2022-12-16 11:00 | Outpatient (REF) | payer MEDICARE, MEDICAID, SELFPAY ==
--- NOTE | ~2022-12-16 | MM_ITS ---
EXAMINATION: BONE DENSITOMETRY CLINICAL INDICATION: Hyperparathyroidism, unspecified. COMPARISON: Baseline BD dated 11/27/2020. TECHNIQUE: Using a BlockScore DXA System (software version: 13.1) manufactured by [employer], dual-energy x-ray absorptiometry was performed of the lumbar spine, left hip and right forearm radius 33%. The images are of good technical quality. Summary results are attached. FINDINGS: AP SPINE L1-L4: Current: BMD 0.982 g/cm2, Z-score 0.2, T-score -1.6, osteopenia, 5.0% decrease from baseline (<5% change is not significant). Baseline: BMD 1.034 g/cm2. LEFT FEMUR, NECK: Current: BMD 0.780 g/cm2, Z-score 0.4, T-score -1.9, osteopenia. Baseline: BMD 0.768 g/cm2. LEFT FEMUR, TOTAL: Current: BMD 0.873 g/cm2, Z-score 1.1, T-score -1.1, osteopenia, 0.8% decrease from baseline (<5% change is not significant). Baseline: BMD 0.880 g/cm2. RIGHT FOREARM RADIUS 33%: Current: BMD 0.654 g/cm2, Z-score 0.5, T-score -2.5, osteoporosis, 13.3% increase from baseline (<5% change is not significant). Baseline: BMD 0.577 g/cm2. IDENTIFIED RISK FACTORS: Osteoporosis. Kidney disease. Hyperparathyroidism. Secondary osteoporosis (early menopause). Hysterectomy. Bilateral oophorectomy. HISTORY OF FRACTURE: None listed. MEDICATIONS: Vitamin D. MM/XR DEXA appendicular skeleton IMPRESSION: 1. DIAGNOSIS: Osteoporosis based on the lowest T-score value of -2.5 in the right forearm radius 33% applying World Health Organization criteria. 2. 10-YEAR FRACTURE RISK PREDICTION, FRAX: According to the guidelines, FRAX calculation should only be performed on patients in the osteopenia bone density category. Therefore, FRAX was not performed on this patient.? 3. Treatment Recommendations: NOF guidelines recommend consideration for treatment in postmenopausal women and men age 50 and older presenting with the following: -A hip or vertebral (clinical or morphometric) fracture. -T-score less than or equal to -2.5 at the femoral neck or spine after appropriate evaluation to exclude secondary causes. -Low bone mass at the hip or spine and a 10-year fracture probability by FRAX of greater than or equal to 3% for hip fracture or greater than or equal to 20% for major osteoporotic fracture based on the [place] adapted WHO algorithm. 4. Other Recommendations: All treatment decisions require clinical judgment and consideration of individual patient factors, including patient preferences, comorbidities, previous drug use, risk factors not captured in the FRAX model (e.g. frailty, falls, vitamin D deficiency, increased bone turnover, interval significant decline in bone density) and possible under or overestimation of fracture risk by FRAX. Additional medical evaluation for secondary cause of low bone mineral density may be appropriate. FUTURE SCAN RECOMMENDATION: People with diagnosed cases of osteoporosis or at high risk for fracture should have regular bone mineral density tests. For patients eligible for Medicare, routine testing is allowed once every 2 years. The testing frequency can be increased to one year for patients who have rapidly progressing disease, those who are receiving or discontinuing medical therapy to restore bone mass, or have additional risk factors.
== END 2022-12-16 11:01 | disposition home or self-care (01) ==
LOC: HO.MAMMO 11:00
PROVIDERS: Visit Provider Internal Medicine
DX: Z13.820 Encounter for screening for osteoporosis (principal); E21.3 Hyperparathyroidism, unspecified; Z78.0 Asymptomatic menopausal state
CPT/HCPCS: 77081

== ENCOUNTER → 2023-01-06 10:35 | Outpatient (BNVA) | payer MEDICARE, MEDICAID, SELFPAY | PROVIDERS: PCP Internal Medicine; Visit Provider Internal Medicine | DX: Z13.89 Encounter for screening for other disorder (principal) | CPT/HCPCS: 99212 ==

== ENCOUNTER 2023-01-06 11:24 | Emergency (ER) | payer MEDICARE, MEDICAID, SELFPAY ==
--- NOTE | ~2023-01-06 | XR_ITS ---
EXAMINATION: XR CHEST CLINICAL INFORMATION: Hypertension COMPARISON: None TECHNIQUE: 2 views of the chest were obtained. FINDINGS: No significant abnormality is noted involving the heart, lungs, mediastinum, bony thorax or soft tissues. Degenerative spurring is seen throughout the thoracic spine. XR/XR chest 2V IMPRESSION: No acute disease.
--- NOTE | 2023-01-06 12:10 | ED_ITS ---
HPI - General Adult General Chief complaint: General Medical Stated complaint: High BP (200/122) per EMS Time Seen by Provider: 01/06/23 12:06 Source: patient, family (daughter) and EMS Mode of arrival: EMS Limitations: language barrier History of Present Illness HPI narrative: 82y/o female with PMHx of HTN, kidney disease presents from MD's office with elevated blood pressure, per pt's family member in the 200's. Pt states she takes blood pressure medication but does not know the names. Pt states she did take her medication this morning and denies missing doses. Pt denies headache, visual changes, chest pain. Pt states she feels well. Relieving factors: none Exacerbating factors: none Associated symptoms: denies other symptoms Treatments prior to arrival: none Related Data Home Medications Medication Instructions Recorded Confirmed atorvastatin 20 mg tablet 20 mg PO DAILY 08/29/20 01/06/23 metoprolol succinate 50 mg 50 mg PO DAILY 08/29/20 01/06/23 tablet,extended release 24 hr trazodone 100 mg tablet 100 mg PO DAILY 08/29/20 01/06/23 fluticasone propionate 50 1 - 2 spray intranasal DAILY PRN 07/10/21 01/06/23 mcg/actuation nasal Nasal Congestion spray,suspension gabapentin 300 mg capsule 1 cap PO BEDTIME 07/10/21 01/06/23 amlodipine 2.5 mg tablet 2.5 mg PO QAM 11/23/22 01/06/23 Previous Rx's Medication Instructions Recorded methimazole 5 mg tablet 2.5 mg PO DAILY 30 days #15 tabs 05/25/22 cholecalciferol (vitamin D3) 25 25 mcg PO DAILY 30 days #30 caps 12/08/22 mcg (1,000 unit) capsule Allergies Allergy/AdvReac Type Severity Reaction Status Date / Time No Known Allergies Allergy Verified 01/06/23 10:43 Review of Systems Constitutional: Constitutional: Reports no additional constitutional complaints, Denies chills, Denies fever(s) and Denies night sweats Eyes: Eyes: Reports no additional eye complaints, Denies blurry vision, Denies change in vision, Denies diplopia, Denies eye discharge, Denies loss of vision and Denies eye pain ENT: Denies dizziness Cardiovascular: Cardiovascular: Reports no additional cardiovascular complaints, Denies chest pain, Denies lightheadedness, Denies Loss of Consciousness and Denies dyspnea Respiratory: Respiratory: Reports no additional respiratory complaints and Denies dyspnea Gastrointestinal: Gastrointestinal: Reports no additional gastrointestinal complaints, Denies abdominal pain, Denies melena, Denies hematochezia, Denies change in bowel habits and Denies change in stool character Genitourinary: Genitourinary: Denies hematuria, Denies urinary frequency, Denies dysuria, Denies urinary incontinence, Denies urinary hesitancy and Denies urinary urgency Musculoskeletal: Musculoskeletal: Reports no additional musculoskeletal complaints, Denies numbness and Denies tingling Neurologic: Denies dizziness, Denies loss of vision, Denies numbness and Denies tingling Psychiatric: Psychiatric: Reports no additional psychiatric complaints Endocrine: Endocrine: Reports no additional endocrine complaints Hematologic/Lymphatic: Hematologic/Lymphatic: Reports no additional hematologic/lymphatic complaints Allergic/Immunologic: Allergic/Immunologic: Reports no additional allergic /immunologic complaints PMFSH Past Medical History Attestation statement: The following information was validated with the patient. (patient's daughter validated all information) Source: old records reviewed, obtained from family (patient's daughter) and nursing notes reviewed Medical History Effusion, left knee Goiter High cholesterol Hyperparathyroidism Hypertension Hypertensive emergency Left knee pain On beta april at home Renal impairment Subclinical hyperthyroidism Vitamin D deficiency Surgical History H/O colonoscopy History of esophagogastroduodenoscopy (EGD) Hx of cataract extraction Hx of hysterectomy Family History Family History Father No problems noted. Mother No problems noted. Social History Social History Household Members Other:: lives with her daughter Alcohol intake: never Patient Tobacco Use Status: Never used Tobacco Advance Directives: No Current occupational status: unemployed Physical Exam ED Vital Signs: Vital Signs - 24 hr 01/06/23 12:57 01/06/23 12:57 01/06/23 16:34 Temperature 98.2 F 98.2 F 98.1 F Pulse Rate 51 52 53 Respiratory Rate 16 16 19 Blood Pressure 198/75 H 198/75 H 186/76 H Pulse Oximetry 95 95 96 Oxygen Delivery Method Room Air Room Air Room Air BMI result Body Mass Index 22.6 Const General: cooperative, no acute distress, alert and awake Nutritional Appearance: well nourished Orientation/consciousness: patient oriented x3 Limitations: no limitations HENMT Head: Yes normal to inspection and Yes atraumatic Ears: hearing grossly normal bilaterally and external ears normal General nose exam: Normal external nose present, no nasal discharge noted and no epistaxis Face and sinus: Yes normal facial exam, No abrasion and No laceration Mouth: Normal oral and palatal mucosa present, no drooling and no muffled voice Eyes General: appearance normal, both eyes and all related structures Periorbital: periorbital findings normal Eyelids: Yes eyelids normal Conjunctivae: conjunctivae normal Pupils: Equal, round and reactive pupils present EOM: EOMs intact bilaterally Neck Neck: Yes normal visual inspection, Yes full ROM and Yes no lymphadenopathy Chest Chest palpation & inspection: normal inspection of the chest Resp Effort & Inspection: normal respiratory effort and able to speak in complete sentences Auscultation: clear to auscultation bilaterally Cardio Rate: regular rate Rhythm: regular rhythm GI Inspection: Yes normal to inspection Neuro General: patient oriented x3 and moves all extremities Cranial nerves: Yes Equal, round and reactive pupils present Cognition (Neuro): normal cognition Motor exam (neuro): 5/5 motor strength present throughout Sensory Exam: Normal double simultaneous stimulation for sensation Coordination: kiaest-az-zbcw test normal Extrem General: Yes normal to inspection, Yes full ROM and Yes capillary refill normal Psych Appearance: grossly normal Mental Status: mental status grossly normal Affect: normal affect Attitude: cooperative Thought process: Normal thought process present Thought content: Normal thought content present Insight: Good insight present (Psych) Medical Decision Making Medical Decision Making MDM Narrative: Patient is an 82 year old assigned female at with a history of HTN presenting to the emergency department today with an elevated blood pressure. Patient's physical exam was unremarkable. Patient's blood work was unremarkable. Patient's EKG was unremarkable. Patient's chest x-ray showed no acute process. I explained my physical exam findings as well as all test results to the patient and the patient's daughter. I answered all questions asked by the patient and the patient's daughter. I stressed the importance of the patient taking her medication as prescribed. I stressed the importance of the patient following up with her primary care provider. I stressed the importance of the patient returning to the emergency department immediately if she were to develop any dizziness, shortness of breath, difficulty breathing, chest pain, blurry vision, loss of vision, nausea, vomiting, abdominal pain, fever, chills, back pain, or any other complaints. Patient and the patient's daughter verbalized agreement and understanding with this treatment plan and discharge. Differential Diagnosis Differential Diagnoses: The differential diagnosis associated with the presentation includes asymptomatic hypertension Lab Data MDM Lab Attestation statement: I reviewed the patient's lab results. 01/06/23 13:01 01/06/23 15:34 Labs: Lab Results 01/06/23 01/06/23 01/06/23 Range/Units 13:01 13:01 15:34 WBC 4.7 L (4.8-10.8) X10*3/uL RBC 4.59 (4.20-5.50) X10*6/uL Hgb 12.8 (12.0-16.0) g/dl Hct 40.2 (37.0-47.0) % MCV 87.6 (80.0-98.0) fL MCH 27.9 (27.0-33.0) pg MCHC 31.8 (31.0-35.0) g/dl RDW 14.1 (11.0-16.0) % Plt Count 192 D (160-400) X10*3/uL MPV 12.6 H (9.4-12.3) fL Immature Gran % (Auto) 0.4 (0.0-0.4) % Neut % (Auto) 50.1 (45-73) % Lymph % (Auto) 38.9 (20-40) % [place] % (Auto) 8.7 (2-11) % Eos % (Auto) 1.3 (0-4) % Baso % (Auto) 0.6 (0-2) % Lymph # (Auto) 1.8 (1.2-4.9) X10*3/uL [place] # (Auto) 0.4 (0.1-1.2) X10*3/uL Eos # (Auto) 0.1 (0.0-0.4) X10*3/uL Baso # (Auto) 0.0 (0.0-0.2) X10*3/uL Abs Immat Gran (auto) 0.02 (0.00-0.03) X10*3/uL Absolute Neuts (auto) 2.4 (2.0-8.3) x10*3/uL Absolute Nucleated RBC 0.000 (0.0-0.012) X10*3/uL Nucleated RBC % (auto) 0.0 (0.0-0.2) /100WBC Sodium 139 (135-145) mmol/L Potassium 4.9 (3.3-5.1) mmol/L Chloride 102 (96-108) mmol/L Carbon Dioxide 32 H (22-29) mmol/L Anion Gap 10 L (12-20) BUN 16 (9-16) mg/dL Creatinine 1.11 (0.5-1.4) mg/dL Estim Creat Clear Calc 35.3 Estimated GFR 47 Random Glucose 87 (60-115) mg/dL Calcium 9.2 (8.4-10.2) mg/dL Magnesium 2.1 (1.6-2.6) mg/dL Total Bilirubin 1.1 H (0.0-1.0) mg/dL AST 19 (5-31) U/L ALT 15 (0-31) U/L Alkaline Phosphatase 88 (39-117) U/L Troponin I High Sens < 3.5 (<3.5-17.0) ng/L Total Protein 7.1 (6.5-8.0) g/dL Albumin 3.8 (3.5-5.0) g/dL Radiology Impression Radiologist Impression: My interpretation is in agreement with the radiologist's impression of this imaging study. EXAMINATION: XR CHEST CLINICAL INFORMATION: Hypertension COMPARISON: None TECHNIQUE: 2 views of the chest were obtained. FINDINGS: No significant abnormality is noted involving the heart, lungs, mediastinum, bony thorax or soft tissues. Degenerative spurring is seen throughout the thoracic spine. XR/XR chest 2V IMPRESSION: No acute disease. Dictated By: Kain Odell MD Signed By: Electronically signed by Kain Odell MD 01/06/23 [id number] Independent Historian Clinical information obtained from an independent historian. History obtained from or confirmed by: Other (patient's daughter) Discharge Plan Discharge Clinical Impression: Hypertension Patient Disposition: Home, Self-Care Instructions: Hypertension (ED) Additional Instructions: Follow up with your primary care provider. Return to the emergency department immediately if your symptoms worsen or if you develop any dizziness, shortness of breath, difficulty breathing, chest pain, blurry vision, loss of vision, nausea, vomiting, abdominal pain, fever, chills, back pain, or any other co mplaints. Prescriptions: No Action methimazole 5 mg tablet 2.5 mg PO DAILY 30 Days Qty: 15 11RF cholecalciferol (vitamin D3) 25 mcg (1,000 unit) capsule 25 mcg PO DAILY 30 Days Qty: 30 1RF gabapentin 300 mg capsule 1 cap PO BEDTIME fluticasone propionate 50 mcg/actuation spray,suspension 1 - 2 spray intranasal DAILY PRN (Reason: Nasal Congestion) metoprolol succinate 50 mg tablet extended release 24 hr 50 mg PO DAILY atorvastatin 20 mg tablet 20 mg PO DAILY trazodone 100 mg tablet 100 mg PO DAILY amlodipine 2.5 mg tablet 2.5 mg PO QA Referrals: Evi Thomson MD [Primary Care Provider] - Print Language: Malian
--- NOTE | 2023-01-06 12:15 | ECG_ITS ---
Test Reason : HYPERTENSION Blood Pressure : / mmHG Vent. Rate : 053 BPM Atrial Rate : 053 BPM P-R Int : 198 ms QRS Dur : 076 ms QT Int : 458 ms P-R-T Axes : 043 056 058 degrees QTc Int : 429 ms Sinus bradycardia Low voltage QRS Nonspecific ST abnormality Abnormal ECG No previous ECGs available Referred By: Nany Bass Electronically Signed By:PIERRE HA
[2023-01-06 12:57] VITALS: BP 198/75; PULSE 51; PULSE 52; RESP 16; TEMP 36.8; O2SAT 95; BMI 22.6
[2023-01-06 13:11] LABS: MANUAL DIFF FLAG NO
[2023-01-06 13:15] LABS: Basophils Percent Auto 0.6 % (0-2); Eosinophils Absolute Auto 0.1 X10*3/uL (0.0-0.4); Eosinophils Percent Auto 1.3 % (0-4); Hematocrit 40.2 % (37.0-47.0); Hemoglobin 12.8 g/dl (12.0-16.0); Imm Gran Abs Auto 0.02 X10*3/uL (0.00-0.03); Imm Gran Pct Auto 0.4 % (0.0-0.4); Lymphocytes Absolute Auto 1.8 X10*3/uL (1.2-4.9); Lymphocytes Percent Auto 38.9 % (20-40); Mean Corpuscular HGB Conc 31.8 g/dl (31.0-35.0); Mean Corpuscular Hemoglobin 27.9 pg (27.0-33.0); Mean Corpuscular Volume 87.6 fL (80.0-98.0); Mean Platelet Volume 12.6 fL (9.4-12.3); Monocytes Absolute Auto 0.4 X10*3/uL (0.1-1.2); Monocytes Percent Auto 8.7 % (2-11); Neutrophils Absolute Auto 2.4 x10*3/uL (2.0-8.3); Neutrophils Percent Auto 50.1 % (45-73); Platelet Count 192 X10*3/uL (160-400); Red Blood Count 4.59 X10*6/uL (4.20-5.50); Red Cell Distribution Width 14.1 % (11.0-16.0); White Blood Count 4.7 X10*3/uL (4.8-10.8)
[2023-01-06 13:54] LABS: Troponin-I High Sensitivity < 3.5 ng/L (<3.5-17.0)
[2023-01-06 16:17] LABS: Alanine Aminotransferase 15 U/L (0-31); Albumin Level 3.8 g/dL (3.5-5.0); Alkaline Phosphatase 88 U/L (39-117); Anion Gap 10 (12-20); Aspartate Amino Transferase 19 U/L (5-31); Bilirubin Total 1.1 mg/dL (0.0-1.0); Blood Urea Nitrogen 16 mg/dL (9-16); Calcium 9.2 mg/dL (8.4-10.2); Carbon Dioxide 32 mmol/L (22-29); Chloride 102 mmol/L (96-108); Creatinine Clr Calc Pharmacy 35.3; Estimated Glomerular Filt Rate 47; Glucose Random 87 mg/dL (60-115); Magnesium 2.1 mg/dL (1.6-2.6); Potassium 4.9 mmol/L (3.3-5.1); Sodium 139 mmol/L (135-145); Total Protein 7.1 g/dL (6.5-8.0)
[2023-01-06 16:34] VITALS: BP 186/76; PULSE 53; RESP 19; TEMP 36.7; O2SAT 96
== END 2023-01-06 17:17 | disposition home or self-care (01) ==
PROVIDERS: Physician Assistant Medical; Emergency Provider Emergency Medicine; PCP Internal Medicine
DX: I10 Essential (primary) hypertension (principal); Z79.899 Other long term (current) drug therapy; E21.3 Hyperparathyroidism, unspecified; E05.90 Thyrotoxicosis, unspecified without thyrotoxic crisis or storm
CPT/HCPCS: 36415; 71046; 80053; 83735; 84484; 85025; 93005; 99212; 99283; 99284

== ENCOUNTER → 2023-02-03 09:19 | Outpatient (BNVA) | payer MEDICARE, MEDICAID, SELFPAY | PROVIDERS: PCP Internal Medicine; Visit Provider Internal Medicine | DX: E05.90 Thyrotoxicosis, unspecified without thyrotoxic crisis or storm (principal); E55.9 Vitamin D deficiency, unspecified; E04.9 Nontoxic goiter, unspecified; M81.0 Age-related osteoporosis without current pathological fracture | CPT/HCPCS: 99212 ==

== ENCOUNTER 2023-02-08 07:42 | Outpatient (REF) | payer MEDICARE, MEDICAID, SELFPAY ==
[2023-02-08 09:04] LABS: Cholesterol 138 mg/dL; HDL Cholesterol 33 mg/dL; LDL Cholesterol Calculated 54 mg/dl; Triglycerides 257 mg/dL
[2023-02-08 10:56] LABS: Reflex LDLD? No
== END 2023-02-08 07:43 | disposition home or self-care (01) ==
LOC: HO.LAB 07:42
PROVIDERS: PCP Internal Medicine; Visit Provider Internal Medicine
DX: I12.9 Hypertensive chronic kidney disease with stage 1 through stage 4 chronic kidney disease, or unspecified chronic kidney disease (principal); N18.4 Chronic kidney disease, stage 4 (severe); E78.00 Pure hypercholesterolemia, unspecified
CPT/HCPCS: 36415; 80061

== ENCOUNTER 2023-03-22 07:32 | Outpatient (REF) | payer MEDICARE, MEDICAID, SELFPAY ==
[2023-03-22 08:28] LABS: Alanine Aminotransferase 19 U/L (0-31); Albumin Level 4.2 g/dL (3.5-5.0); Alkaline Phosphatase 82 U/L (39-117); Anion Gap 13 (12-20); Aspartate Amino Transferase 21 U/L (5-31); Blood Urea Nitrogen 18 mg/dL (9-16); Calcium 9.7 mg/dL (8.4-10.2); Carbon Dioxide 26 mmol/L (22-29); Chloride 106 mmol/L (96-108); Estimated Glomerular Filt Rate 36; Glucose Random 99 mg/dL (60-115); Phosphorus 3.7 mg/dL (2.7-4.5); Sodium 140 mmol/L (135-145); Total Protein 7.5 g/dL (6.5-8.0)
[2023-03-22 08:49] LABS: Free T4 (Free Thyroxine) 1.08 ng/dL (0.71-1.85); Thyroid Stimulating Hormone 1.37 uIU/mL (0.32-4.0); Vitamin D 25-OH Total 46.5 ng/mL (>30)
[2023-03-24 08:59] LABS: Triiodothyronine T3 Total 104 ng/dL (76-181)
[2023-03-24 12:23] LABS: Calcium (PTHI) 9.9 mg/dL (8.6-10.4); PTHI 58 pg/mL (16-77)
== END 2023-03-22 07:33 | disposition home or self-care (01) ==
LOC: HO.LAB 07:32
PROVIDERS: PCP Internal Medicine; Visit Provider Internal Medicine
DX: E05.90 Thyrotoxicosis, unspecified without thyrotoxic crisis or storm (principal); E55.9 Vitamin D deficiency, unspecified; M81.0 Age-related osteoporosis without current pathological fracture
CPT/HCPCS: 36415; 80053; 82306; 83970; 84100; 84439; 84443; 84480

== ENCOUNTER → 2023-03-29 10:34 | Outpatient (BNVA) | payer MEDICARE, MEDICAID, SELFPAY | PROVIDERS: PCP Internal Medicine; Visit Provider Internal Medicine | DX: M81.0 Age-related osteoporosis without current pathological fracture (principal) | CPT/HCPCS: 96372 ==

== ENCOUNTER 2023-07-16 11:13 | Emergency (ER) | payer MEDICARE, MEDICAID, SELFPAY ==
[2023-07-16 11:24] VITALS: BP 136/78; PULSE 90; O2SAT 98
[2023-07-16 11:28] VITALS: BP 135/60; PULSE 87; RESP 17; TEMP 37.4; O2SAT 96; BMI 31.6
--- NOTE | 2023-07-16 11:56 | ED_ITS ---
HPI - General Adult General Chief complaint: General Medical Stated complaint: RASH ON ABD/BACK Time Seen by Provider: 07/16/23 11:34 Source: patient and family Mode of arrival: ambulatory Limitations: no limitations History of Present Illness HPI narrative: 82-year-old female history of osteoporosis hypertension, degenerative disc disease, bloating, acid reflux, renal impairment, subclinical hyperthyroidism presenting to the emergency department for evaluation of rash to the right flank region, patient reports initially it started off as pain to that region and then she developed a rash with redness, warmth, bubbles which she has been popping ongoing for the past 2 days. Patient reports severe pain described as stabbing. Patient denies fevers, chills, chest pain, shortness of breath, nausea, vomiting, headache, vision changes, dizziness and weakness Related Data Home Medications Medication Instructions Recorded Confirmed atorvastatin 20 mg tablet 20 mg PO DAILY 08/29/20 02/03/23 trazodone 100 mg tablet 100 mg PO DAILY 08/29/20 02/03/23 fluticasone propionate 50 1 - 2 spray intranasal DAILY PRN 07/10/21 02/03/23 mcg/actuation nasal Nasal Congestion spray,suspension gabapentin 300 mg capsule 1 cap PO BEDTIME 07/10/21 02/03/23 amlodipine 2.5 mg tablet 2.5 mg PO QAM 11/23/22 02/03/23 benazepril 10 mg tablet 10 mg PO DAILY 02/03/23 02/03/23 latanoprost 0.005 % eye drops 0 drp ophthalmic (eye) 02/03/23 02/03/23 tramadol 50 mg tablet 50 mg PO Q8H PRN severe pain 02/03/23 02/03/23 Previous Rx's Medication Instructions Recorded cholecalciferol (vitamin D3) 25 25 mcg PO DAILY 30 days #30 caps 12/08/22 mcg (1,000 unit) capsule denosumab 60 mg/mL subcutaneous 60 mg subcut [id number] #1 mL 02/10/23 syringe (Prolia) methimazole 5 mg tablet 2.5 mg PO DAILY #15 tabs 06/14/23 gabapentin 100 mg capsule 100 mg PO BID #14 caps 07/16/23 morphine 15 mg immediate release 15 mg PO Q6H PRN pain 5 days #10 07/16/23 tablet tabs prednisone 20 mg tablet 40 mg PO DAILY 5 days #10 tabs 07/16/23 valacyclovir 1 gram tablet 1,000 mg PO TID 7 days #21 tabs 07/16/23 (Valtrex) Allergies Allergy/AdvReac Type Severity Reaction Status Date / Time No Known Allergies Allergy Verified 07/16/23 11:26 Review of Systems Review of Systems: Constitutional : No Weight loss, No Fever, No Chills, No Fatigue, No Malaise ENT/Mouth : No sore throat, No Rhinorrhea Eyes: No Eye Pain, No Swelling, No Redness Cardiovascular : No Chest Pain, No SOB, No Dyspnea on Exertion, No Orthopnea, No Edema, No Palpitations Respiratory : No Cough, No Sputum, No Wheezing Gastrointestinal : No Nausea, No Vomiting, No Diarrhea, No Constipation, No abdominal Pain, No Hematochezia, No Melena Genitourinary : No Dysuria, No Urinary Frequency, No Hematuria, Musculoskeletal : No joint pain, No Myalgias, No Joint Swelling Skin : No Skin Lesions, + rash Neuro : No Weakness, No Numbness, No Dizziness, No Headache Psych : No Anxiety/Panic, No Depression All other systems reviewed and are negative Yes all other systems are reviewed and are negative [facility] Past Medical History Medical History (Updated 07/16/23 @ 11:58 by SHORTY Collins) Effusion, left knee Goiter High cholesterol Hyperparathyroidism Hypertension Hypertensive emergency Left knee pain On beta april at home Osteoporosis Renal impairment Subclinical hyperthyroidism Vitamin D deficiency Surgical History H/O colonoscopy History of esophagogastroduodenoscopy (EGD) Hx of cataract extraction Hx of hysterectomy Family History Family History Father No problems noted. Mother No problems noted. Social History Social History Household Members Other:: lives with her daughter Alcohol intake: never Patient Tobacco Use Status: Never used Tobacco Advance Directives: No Current occupational status: unemployed Physical Exam ED Vital Signs: Vital Signs - 24 hr 07/16/23 11:28 Temperature 99.4 F Pulse Rate 87 Respiratory Rate 17 Blood Pressure 135/60 Pulse Oximetry 96 Oxygen Delivery Method Room Air BMI result Body Mass Index 31.6 vss Appearance: Alert.? Oriented X3.? No acute distress.? Head: Normocephalic, atraumatic, no step-offs or deformities Eyes: Pupils equal, round and reactive to light.? CVS: Normal heart rate and rhythm.? Pulses normal.? Respiratory: No respiratory distress.? Breath sounds normal.? Abdomen: Soft and nontender.? Skin: Skin warm and dry.? Normal skin color.? Normal skin turgor.?+ vesicles on an erythematous base to the right flank region overlying t10-11 dermatome ( images below) Extremities: No lower extremity edema.? No calf ttp. 5/5 strength to bilateral upper and lower extremities Neuro: Oriented X 3.? No motor deficit.? No sensory deficit. CN 2-12 intact Medical Decision Making Medical Decision Making [facility] Narrative: 1208 82 yo F presents w/ rash to R flank region X 2 days pain percipitaed rash PE w/ vesicles on errythematous base Likely shingles. Unlikely necrotizing infection, TEN, SJS, gangrene, cellulitis. Plan- valtrex, pain control. DC Educated patient on diagnosis and treatment plan, answered all question, patient verbalizes understanding. At this time patient will be discharged home, advised to return with new or worsening symptoms. Educated on worrisome signs and symptoms and when to return. At this time I feel comfortable discharge home. I did have a conversation with patient family members about sedating effects of gabapentin and morphine together, family and patient aware however they do understand that due to high level of pain patient will likely require both of these. They are aware of this. They will stay with her and she will not be alone. Differential Diagnosis Differential Diagnoses: The differential diagnosis associated with the presentation includes Likely shingles. Unlikely necrotizing infection, TEN, SJS, gangrene, cellulitis. Admission/Observation Consideration of admission/observation: Escalation of care including admission/observation considered Unlikely Lab Data [facility] Lab Attestation statement: I reviewed the patient's lab results. Prescription Management I considered prescription management with: Pain Medication, Antiviral and Other (Prednisone) Core Measures AMI core measures followed: Yes Measure exclusions: not indicated Discharge Plan Discharge Clinical Impression: Shingles Patient Disposition: Home, Self-Care Instructions: Shingles (ED) Additional Instructions: Take your medications as prescribed. If you were prescribed antibiotics today, it is important that you take your medication to their entirety, do not skip any doses, do not finish them early. Follow-up with your primary care provider this week. Return to the emergency department with new or worsening symptoms. Such as fevers, chills, chest pain, shortness of breath, nausea, vomiting, dizziness, headache, vision changes, lethargy In case of emergency call 911 A narcotic has been sent to your pharmacy please take this as prescribed. Do not take more than the prescribed dose. Narcotic medications can cause addiction. Please do not mix them with alcohol. Do not take them while driving or operating machinery. Do not take them with any other narcotics. Do not share them with friends or family. They can cause constipation. Take them only for severe pain. Gabapentin and morphine together can make you feel tired, drowsy. Please use caution with these medication Prescriptions: New valacyclovir [Valtrex] 1 gram tablet 1,000 mg PO TID 7 Days Qty: 21 0RF prednisone 20 mg tablet 40 mg PO DAILY 5 Days Qty: 10 0RF morphine 15 mg tablet 15 mg PO Q6H PRN (Reason: pain) 5 Days Qty: 10 0RF Rx Instructions: Partial Fill upon patient request. gabapentin 100 mg capsule 100 mg PO BID Qty: 14 0RF No Action cholecalciferol (vitamin D3) 25 mcg (1,000 unit) capsule 25 mcg PO DAILY 30 Days Qty: 30 1RF Prolia 60 mg/mL syringe 60 mg subcut [id number] Qty: 1 2RF methimazole 5 mg tablet 2.5 mg PO DAILY Qty: 15 11RF gabapentin 300 mg capsule 1 cap PO BEDTIME fluticasone propionate 50 mcg/actuation spray,suspension 1 - 2 spray intranasal DAILY PRN (Reason: Nasal Congestion) atorvastatin 20 mg tablet 20 mg PO DAILY trazodone 100 mg tablet 100 mg PO DAILY amlodipine 2.5 mg tablet 2.5 mg PO QAM latanoprost 0.005 % drops 0 drp ophthalmic (eye) tramadol 50 mg tablet 50 mg PO Q8H PRN (Reason: severe pain) benazepril 10 mg tablet 10 mg PO DAILY Referrals: Evi Thomson MD [Primary Care Provider] - 2 days
[2023-07-16] MEDS: Gabapentin 100 MG CAPSULE PO (12:15)
[2023-07-16] MEDS: Morphine Sulfate Immed Release 15 MG TABLET PO (12:15)
[2023-07-16] MEDS: predniSONE 20 MG TABLET 40 MG PO (12:16)
--- NOTE | 2023-07-16 12:19 | PC.NURSE ---
pt cleared for discharge, po meds given as orders, pt reports 8/10 full body ache. no other complaints. discharged instructions reviewed with pt and daughter at her bedside.
== END 2023-07-16 12:28 | disposition home or self-care (01) ==
PROVIDERS: Emergency Provider Emergency Medicine; PCP Internal Medicine
DX: B02.9 Zoster without complications (principal); R21 Rash and other nonspecific skin eruption
CPT/HCPCS: 99283

== ENCOUNTER 2023-07-19 10:26 | Inpatient (IN) | payer MEDICARE, MEDICAID, SELFPAY ==
--- NOTE | 2023-07-19 | ECG_ITS ---
Test Reason : chest pain Blood Pressure : / mmHG Vent. Rate : 082 BPM Atrial Rate : 082 BPM P-R Int : 182 ms QRS Dur : 080 ms QT Int : 356 ms P-R-T Axes : 041 053 027 degrees QTc Int : 415 ms Normal sinus rhythm Possible Anterior infarct , age undetermined Abnormal ECG When compared with ECG of 06-JAN-2023 13:29, No significant change was found Referred By: Generic ED Physician Electronically Signed By:HUBER JACINTO
--- NOTE | ~2023-07-19 | XR_ITS ---
EXAMINATION: XR CHEST CLINICAL INFORMATION: Shortness of breath COMPARISON: Chest radiograph from 01/06/2023 TECHNIQUE: Frontal view of the chest was obtained. FINDINGS: Bilateral low lung volumes. Elevation the right hemidiaphragm. Accentuation of the pulmonary vasculature. Trace left-sided pleural effusion. No pneumothorax. Cardiomediastinal silhouette is not enlarged. Degenerative changes of the thoracolumbar spine. Soft tissues are unremarkable. XR/XR chest 1V IMPRESSION: 1. Bilateral low lung volumes. 2. Elevation the right hemidiaphragm. 3. Accentuation of the pulmonary vasculature. 4. Trace left-sided pleural effusion.
--- NOTE | ~2023-07-19 | CT_ITS ---
EXAMINATION: CT HEAD WITHOUT CONTRAST CLINICAL INFORMATION: Hyponatremia COMPARISON: None available. TECHNIQUE: Contiguous axial imaging was performed from the skull base to vertex without intravenous administration of contrast. This CT examination was performed using dose optimization techniques as appropriate, variously including the following: *Automated exposure control *Adjustment of mA and/or kV according to patient size (this includes techniques or standardized protocols for targeted exams where dose is matched to indication/reason for exam; i.e. extremities or head) *Use of iterative reconstruction technique DLP: 574 mGy-cm FINDINGS: The ventricles and cisterns are normal in size, shape and configuration. There are no extra-axial surface collections or evidence of hemorrhage. Midline structures are central. The khanna/white differentiation is maintained. The orbits appear normal bilaterally. The paranasal sinuses are clear. No fractures are seen. CT/CT head/brain wo IV con IMPRESSION: No acute intracranial pathology. No mass on this nonenhanced study.
[2023-07-19 10:29] VITALS: BP 132/65; PULSE 84; RESP 22; TEMP 37.1; O2SAT 94; BMI 28.5
--- NOTE | 2023-07-19 11:20 | ED.GENADULT ---
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 No fever, no chills, no headache, no photophobia, no neck stiffness. Related Data Home Medications Medication Instructions Recorded Confirmed atorvastatin 20 mg tablet 20 mg PO DAILY 08/29/20 02/03/23 trazodone 100 mg tablet 100 mg PO DAILY 08/29/20 02/03/23 fluticasone propionate 50 1 - 2 spray intranasal DAILY PRN 07/10/21 02/03/23 mcg/actuation nasal Nasal Congestion spray,suspension gabapentin 300 mg capsule 1 cap PO BEDTIME 07/10/21 02/03/23 amlodipine 2.5 mg tablet 2.5 mg PO QAM 11/23/22 02/03/23 benazepril 10 mg tablet 10 mg PO DAILY 02/03/23 02/03/23 latanoprost 0.005 % eye drops 0 drp ophthalmic (eye) 02/03/23 02/03/23 tramadol 50 mg tablet 50 mg PO Q8H PRN severe pain 02/03/23 02/03/23 Previous Rx's Medication Instructions Recorded cholecalciferol (vitamin D3) 25 25 mcg PO DAILY 30 days #30 caps 12/08/22 mcg (1,000 unit) capsule denosumab 60 mg/mL subcutaneous 60 mg subcut [id number] #1 mL 02/10/23 syringe (Prolia) methimazole 5 mg tablet 2.5 mg PO DAILY #15 tabs 06/14/23 gabapentin 100 mg capsule 100 mg PO BID #14 caps 07/16/23 morphine 15 mg immediate release 15 mg PO Q6H PRN pain 5 days #10 07/16/23 tablet tabs prednisone 20 mg tablet 40 mg PO DAILY 5 days #10 tabs 07/16/23 valacyclovir 1 gram tablet 1,000 mg PO TID 7 days #21 tabs 07/16/23 (Valtrex) Allergies Allergy/AdvReac Type Severity Reaction Status Date / Time No Known Allergies Allergy Verified 07/19/23 10:36 Review of Systems Review of Systems: All other systems are reviewed and are negative Constitutional: Reports as per HPI and Reports no additional constitutional complaints Eyes: Reports as per HPI and Reports no additional eye complaints Reports system reviewed and no additional complaints, except as documented Cardiovascular: Reports as per HPI and Reports no additional cardiovascular complaints Respiratory: Reports as per HPI and Reports no additional respiratory complaints Gastrointestinal: Reports as per HPI and Reports no additional gastrointestinal complaints Genitourinary: Reports no additional female genitourinary complaints Musculoskeletal: Reports no additional musculoskeletal complaints Skin/Breast: Reports system reviewed and no additional complaints, except as docu Psychiatric: Reports no additional psychiatric complaints Endocrine: Reports no additional endocrine complaints Hematologic/Lymphatic: Reports no additional hematologic/lymphatic complaints Allergic/Immunologic: Reports no additional allergic/immunologic complaints Reports system reviewed and no additional complaints, except as documented and Reports Abnormal speech present [facility] Past Medical History Medical History Effusion, left knee Goiter High cholesterol Hyperparathyroidism Hypertension Hypertensive emergency Left knee pain On beta april at home Osteoporosis Renal impairment Subclinical hyperthyroidism Vitamin D deficiency Surgical History H/O colonoscopy History of esophagogastroduodenoscopy (EGD) Hx of cataract extraction Hx of hysterectomy Family History Family History Father No problems noted. Mother No problems noted. Social History Social History Household Members Other:: lives with her daughter Alcohol intake: never Patient Tobacco Use Status: Never used Tobacco Smoked in Last 30 Days: No Use of substances other than those prescribed or required for medical reasons: No Advance Directives: No Current occupational status: unemployed Physical Exam ED Vital Signs: Vital Signs - 24 hr 07/19/23 10:29 07/19/23 15:16 07/19/23 15:16 Temperature 98.7 F Pulse Rate 84 91 95 Respiratory Rate 22 H Blood Pressure 132/65 142/52 H 142/71 H Pulse Oximetry 94 Oxygen Delivery Method Room Air 07/19/23 15:18 07/19/23 15:55 Temperature 98.5 F Pulse Rate 96 88 Respiratory Rate 20 Blood Pressure 144/69 H 121/73 Pulse Oximetry 93 Oxygen Delivery Method Room Air BMI result Body Mass Index 28.5 vital signs have been reviewed as appeared to be correct. Blood pressure normal. Heart rate normal. Respiration rate normal. Temperature normal. Oxygen saturation normal. Appearance: Alert. Oriented X3. No acute distress. Head: Normal external exam. Normocephalic. Atraumatic. No Fabian signs noted. No raccoon eyes noted Eyes: PERRLA. EOMI. Conjunctiva and sclera normal. Eyelids normal. ENT: TM's Normal. Pharynx normal. Uvula midline. Moist mucous membranes. No trismus noted. No drooling noted. No muffled voice noted. Neck: Normal inspection. Neck supple. FROM. No adenopathy. Thyroid Normal. No meningeal signs. No neck mass noted. CVS: Normal heart rate and rhythm. Heart sound normal. No murmurs noted. Pulses normal throughout. Respiratory: No respiratory distress. Painless inspiration. Breath sounds normal. No wheezes/rales/rhonchi noted. No accessory muscle usage noted or decreased air movement noted , diffuse dry brown scales of rash on erythematous base only to the right side do not exceed the midline start in the right flank area and goes to the midline of the anterior abdomenal wall, no vesicles. Abdomen: Soft and nontender. Bowel sounds normal in all 4 quadrants. No distention noted. No organomegaly noted. No visible injury noted. Back: No CVA tenderness. Full range of motion noted. Skin: Skin warm and dry. Normal skin color. Normal skin turgor. No rashes/lesions/lacerations noted. Extremities: No lower extremity edema. Extremities exhibit normal range of motion. Extremities nontender. Neuro: Oriented X 3. Cranial nerve exam: II-XII are grossly intact No motor deficit. No sensory deficit. Reflexes normal. Course Course Course Narrative: 82-year-old female diagnosed with shingle came back for decreased p.o. intake and dehydration, sodium is 118, patient received a L fluid now patient is on 75 cc/hour. will admit to ICU past Reevaluation(s) Reevaluation #1: repeat sodium is 121, patient was already evaluated by Dr. Pillai to be admitted to ICU who recommended to downgrade the patient to a medical floor with since sodium now is at a better level. Time: 17:03 Medications Administered Generic Name Dose Route Start Last Admin Trade Name Freq PRN Reason Stop Dose Admin Sodium Chloride 1,000 mls @ 75 mls/hr 07/19/23 15:15 07/19/23 15:28 Ns IVCONT 75 mls/hr .[id number] PAUL Administration Discontinued Medications Generic Name Dose Route Start Last Admin Trade Name Freq PRN Reason Stop Dose Admin Gabapentin 600 mg 07/19/23 15:36 07/19/23 16:24 Gabapentin 600 Mg Tablet PO 07/19/23 15:37 600 mg ONCE ONE Administration Sodium Chloride 1,000 mls @ 999 mls/hr 07/19/23 11:18 07/19/23 15:31 Ns IV 07/19/23 12:18 Infused .Q1H1M ONE Infusion Medical Decision Making Differential Diagnosis Differential Diagnoses: The differential diagnosis associated with the presentation includes ( dehydration, acute renal failure, electrolyte abnormalities, severe anemia,) Admission/Observation Consideration of admission/observation: Escalation of care including admission/observation considered Consult Healthcare Provider Management of the patient was discussed with: Supervisor [employer] (Dr. Pillai) Lab Data MDM Lab Attestation statement: I reviewed the patient's lab results. 07/19/23 12:48 07/19/23 12:48 Labs: Lab Results 07/19/23 07/19/23 07/19/23 Range/Units 12:47 12:48 12:48 WBC 5.8 (4.8-10.8) X10*3/uL RBC 4.31 (4.20-5.50) X10*6/uL Hgb 11.9 L (12.0-16.0) g/dl Hct 34.9 L (37.0-47.0) % MCV 81.0 (80.0-98.0) fL MCH 27.6 (27.0-33.0) pg MCHC 34.1 (31.0-35.0) g/dl RDW 13.0 (11.0-16.0) % Plt Count 114 L D (160-400) X10*3/uL MPV 11.9 (9.4-12.3) fL Immature Gran % (Auto) 0.7 H (0.0-0.4) % Neut % (Auto) 69.8 (45-73) % Lymph % (Auto) 15.6 L (20-40) % Bacon % (Auto) 13.7 H (2-11) % Eos % (Auto) 0.0 (0-4) % Baso % (Auto) 0.2 (0-2) % Lymph # (Auto) 0.9 L (1.2-4.9) X10*3/uL Bacon # (Auto) 0.8 (0.1-1.2) X10*3/uL Eos # (Auto) 0.0 (0.0-0.4) X10*3/uL Baso # (Auto) 0.0 (0.0-0.2) X10*3/uL Abs Immat Gran (auto) 0.04 H (0.00-0.03) X10*3/uL Absolute Neuts (auto) 4.0 (2.0-8.3) x10*3/uL Absolute Nucleated RBC 0.000 (0.0-0.012) X10*3/uL Nucleated RBC % (auto) 0.0 (0.0-0.2) /100WBC Sodium 118 L* (135-145) mmol/L Potassium 4.9 (3.3-5.1) mmol/L Chloride 89 L (96-108) mmol/L Carbon Dioxide 22 (22-29) mmol/L Anion Gap 12 (12-20) BUN 23 H (9-16) mg/dL Creatinine 1.13 (0.5-1.4) mg/dL Estim Creat Clear Calc 31.5 Estimated GFR 46 Random Glucose 96 (60-115) mg/dL Calcium 7.9 L D (8.4-10.2) mg/dL Total Bilirubin 0.8 (0.0-1.0) mg/dL Direct Bilirubin 0.2 (0.0-0.5) mg/dL AST 33 H (5-31) U/L ALT 19 (0-31) U/L Alkaline Phosphatase 59 (39-117) U/L Troponin I High Sens (<3.5-17.0) ng/L B-Natriuretic Peptide (<100) pg/mL Total Protein 7.3 (6.5-8.0) g/dL Albumin 3.8 (3.5-5.0) g/dL Lipase 19 (8-78) U/L Urine Color Urine Appearance Urine pH (5.0-9.0) Ur Specific [place] (1.005-1.025) Urine Protein (Neg-Trace) mg/dL Urine Glucose (UA) (Negative) mg/dL Urine Ketones (Negative) mg/dL Urine Blood (Negative) Urine Nitrite (Negative) Ur Leukocyte Esterase (Negative) Urine RBC (0-2) /HPF Urine WBC (0-5) /HPF Ur Squamous Epith Cells (0-2) /HPF Urine Bacteria (None Seen) Hyaline Casts (0-2) /LPF Influenza Type A (PCR) NEGATIVE (Negative) Influenza Type B (PCR) NEGATIVE (Negative) RSV RNA Qual (PCR) NEGATIVE (Negative) SARS-CoV-2 RNA (RT-PCR) NEGATIVE (Negative) 07/19/23 07/19/23 07/19/23 Range/Units 12:48 12:48 13:07 WBC (4.8-10.8) X10*3/uL RBC (4.20-5.50) X10*6/uL Hgb (12.0-16.0) g/dl Hct (37.0-47.0) % MCV (80.0-98.0) fL MCH (27.0-33.0) pg MCHC (31.0-35.0) g/dl RDW (11.0-16.0) % Plt Count (160-400) X10*3/uL MPV (9.4-12.3) fL Immature Gran % (Auto) (0.0-0.4) % Neut % (Auto) (45-73) % Lymph % (Auto) (20-40) % Bacon % (Auto) (2-11) % Eos % (Auto) (0-4) % Baso % (Auto) (0-2) % Lymph # (Auto) (1.2-4.9) X10*3/uL Bacon # (Auto) (0.1-1.2) X10*3/uL Eos # (Auto) (0.0-0.4) X10*3/uL Baso # (Auto) (0.0-0.2) X10*3/uL Abs Immat Gran (auto) (0.00-0.03) X10*3/uL Absolute Neuts (auto) (2.0-8.3) x10*3/uL Absolute Nucleated RBC (0.0-0.012) X10*3/uL Nucleated RBC % (auto) (0.0-0.2) /100WBC Sodium (135-145) mmol/L Potassium (3.3-5.1) mmol/L Chloride (96-108) mmol/L Carbon Dioxide (22-29) mmol/L Anion Gap (12-20) BUN (9-16) mg/dL Creatinine (0.5-1.4) mg/dL Estim Creat Clear Calc Estimated GFR Random Glucose (60-115) mg/dL Calcium (8.4-10.2) mg/dL Total Bilirubin (0.0-1.0) mg/dL Direct Bilirubin (0.0-0.5) mg/dL AST (5-31) U/L ALT (0-31) U/L Alkaline Phosphatase (39-117) U/L Troponin I High Sens < 2.7 (<3.5-17.0) ng/L B-Natriuretic Peptide 230 H (<100) pg/mL Total Protein (6.5-8.0) g/dL Albumin (3.5-5.0) g/dL Lipase (8-78) U/L Urine Color Yellow Urine Appearance Clear Urine pH 6.0 (5.0-9.0) Ur Specific [place] 1.010 (1.005-1.025) Urine Protein Negative (Neg-Trace) mg/dL Urine Glucose (UA) Negative (Negative) mg/dL Urine Ketones Negative (Negative) mg/dL Urine Blood Negative (Negative) Urine Nitrite Negative (Negative) Ur Leukocyte Esterase Small (1+) H (Negative) Urine RBC 0-2 (0-2) /HPF Urine WBC 0-5 (0-5) /HPF Ur Squamous Epith Cells 0-2 (0-2) /HPF Urine Bacteria None Seen (None Seen) Hyaline Casts 0-2 (0-2) /LPF Influenza Type A (PCR) (Negative) Influenza Type B (PCR) (Negative) RSV RNA Qual (PCR) (Negative) SARS-CoV-2 RNA (RT-PCR) (Negative) 07/19/23 Range/Units 16:02 WBC (4.8-10.8) X10*3/uL RBC (4.20-5.50) X10*6/uL Hgb (12.0-16.0) g/dl Hct (37.0-47.0) % MCV (80.0-98.0) fL MCH (27.0-33.0) pg MCHC (31.0-35.0) g/dl RDW (11.0-16.0) % Plt Count (160-400) X10*3/uL MPV (9.4-12.3) fL Immature Gran % (Auto) (0.0-0.4) % Neut % (Auto) (45-73) % Lymph % (Auto) (20-40) % Bacon % (Auto) (2-11) % Eos % (Auto) (0-4) % Baso % (Auto) (0-2) % Lymph # (Auto) (1.2-4.9) X10*3/uL Bacon # (Auto) (0.1-1.2) X10*3/uL Eos # (Auto) (0.0-0.4) X10*3/uL Baso # (Auto) (0.0-0.2) X10*3/uL Abs Immat Gran (auto) (0.00-0.03) X10*3/uL Absolute Neuts (auto) (2.0-8.3) x10*3/uL Absolute Nucleated RBC (0.0-0.012) X10*3/uL Nucleated RBC % (auto) (0.0-0.2) /100WBC Sodium 121 L (135-145) mmol/L Potassium 4.8 (3.3-5.1) mmol/L Chloride 94 L (96-108) mmol/L Carbon Dioxide 20 L (22-29) mmol/L Anion Gap 12 (12-20) BUN 20 H (9-16) mg/dL Creatinine 1.12 (0.5-1.4) mg/dL Estim Creat Clear Calc 31.7 Estimated GFR 46 Random Glucose 80 (60-115) mg/dL Calcium 7.8 L (8.4-10.2) mg/dL Total Bilirubin (0.0-1.0) mg/dL Direct Bilirubin (0.0-0.5) mg/dL AST (5-31) U/L ALT (0-31) U/L Alkaline Phosphatase (39-117) U/L Troponin I High Sens (<3.5-17.0) ng/L B-Natriuretic Peptide (<100) pg/mL Total Protein (6.5-8.0) g/dL Albumin (3.5-5.0) g/dL Lipase (8-78) U/L Urine Color Urine Appearance Urine pH (5.0-9.0) Ur Specific [place] (1.005-1.025) Urine Protein (Neg-Trace) mg/dL Urine Glucose (UA) (Negative) mg/dL Urine Ketones (Negative) mg/dL Urine Blood (Negative) Urine Nitrite (Negative) Ur Leukocyte Esterase (Negative) Urine RBC (0-2) /HPF Urine WBC (0-5) /HPF Ur Squamous Epith Cells (0-2) /HPF Urine Bacteria (None Seen) Hyaline Casts (0-2) /LPF Influenza Type A (PCR) (Negative) Influenza Type B (PCR) (Negative) RSV RNA Qual (PCR) (Negative) SARS-CoV-2 RNA (RT-PCR) (Negative) Independent Interpretation I performed an independent interpretation of an: Plain X-Ray ( chest:1. Bilateral low lung volumes. 2. Elevation the right hemidiaphragm. 3. Accentuation of the pulmonary vasculature. 4. Trace left-sided pleural effusion. ) Radiology Impression Discussion of test interpretation with radiology: I have reviewed the radiologist's reading. Critical Care Time Critical Care Time Critical Care Time: Yes Total Critical Care Time: 60 Attestation: I spent 60 minutes providing critical care service to the patient, this including time spent at the bedside to evaluate the patient, reassess the patient, monitoring vital signs, review labs, and radiographic studies, counseling the patient/family, discussing the case with consultants, disposition the patient. Discharge Plan Discharge Clinical Impression: Acute hyponatremia, Acute dehydration, Herpes zoster Patient Disposition: Admitted As Inpatient
[2023-07-19] MEDS: 0.9 % Sodium Chloride 1,000 ML 999 ML IV (12:50)
[2023-07-19 12:55] LABS: MANUAL DIFF FLAG NO
[2023-07-19 13:12] LABS: Basophils Percent Auto 0.2 % (0-2); Hematocrit 34.9 % (37.0-47.0); Hemoglobin 11.9 g/dl (12.0-16.0); Imm Gran Abs Auto 0.04 X10*3/uL (0.00-0.03); Imm Gran Pct Auto 0.7 % (0.0-0.4); Lymphocytes Absolute Auto 0.9 X10*3/uL (1.2-4.9); Lymphocytes Percent Auto 15.6 % (20-40); Mean Corpuscular HGB Conc 34.1 g/dl (31.0-35.0); Mean Corpuscular Hemoglobin 27.6 pg (27.0-33.0); Mean Platelet Volume 11.9 fL (9.4-12.3); Monocytes Absolute Auto 0.8 X10*3/uL (0.1-1.2); Monocytes Percent Auto 13.7 % (2-11); Neutrophils Percent Auto 69.8 % (45-73); PLT CLUMP 1; Platelet Count 114 X10*3/uL (160-400); Red Blood Count 4.31 X10*6/uL (4.20-5.50); SCAN SMEAR FLAG 1; White Blood Count 5.8 X10*3/uL (4.8-10.8)
[2023-07-19 13:17] LABS: Appearance Urine Clear; Color Urine Yellow; Glucose Urine UA Negative (Negative); Leukocyte Esterase Urine Small (1+) (Negative); Nitrite Urine Negative (Negative); UMIC TRIGGER UACC YES; Urine Blood Negative (Negative); Urine Ketones Negative (Negative); Urine Protein Negative (Neg-Trace)
[2023-07-19 13:32] LABS: Bacteria Urine None Seen (None Seen); Hyaline Casts Urine 0-2 /LPF (0-2); RBC Urine 0-2 /HPF (0-2); Squamous Epithelial Cell Urine 0-2 /HPF (0-2); UACC Culture Trigger YES; WBC Urine 0-5 /HPF (0-5)
[2023-07-19 13:35] LABS: Influenza A PCR NEGATIVE (Negative); Influenza B PCR NEGATIVE (Negative); Resp Syncy Virus RNA Qual PCR NEGATIVE (Negative); SARS COV2 PCR INHOUSE NEGATIVE (Negative)
[2023-07-19 13:52] LABS: B Type Natriuretic Peptide 230 pg/mL (<100)
[2023-07-19 14:01] LABS: Troponin-I High Sensitivity < 2.7 ng/L (<3.5-17.0)
[2023-07-19 14:06] LABS: Alanine Aminotransferase 19 U/L (0-31); Albumin Level 3.8 g/dL (3.5-5.0); Alkaline Phosphatase 59 U/L (39-117); Anion Gap 12 (12-20); Aspartate Amino Transferase 33 U/L (5-31); Bilirubin Direct 0.2 mg/dL (0.0-0.5); Blood Urea Nitrogen 23 mg/dL (9-16); Calcium 7.9 mg/dL (8.4-10.2); Carbon Dioxide 22 mmol/L (22-29); Chloride 89 mmol/L (96-108); Creatinine Clr Calc Pharmacy 31.5; Estimated Glomerular Filt Rate 46; Glucose Random 96 mg/dL (60-115); Lipase 19 U/L (8-78); Potassium 4.9 mmol/L (3.3-5.1); Total Protein 7.3 g/dL (6.5-8.0)
[2023-07-19 14:37] LABS: Bilirubin Total 0.8 mg/dL (0.0-1.0)
[2023-07-19 14:46] LABS: Sodium 118 mmol/L (135-145)
[2023-07-19 15:16] VITALS: BP 142/52; BP 142/71; PULSE 91; PULSE 95
[2023-07-19 15:18] VITALS: BP 144/69; PULSE 96
--- NOTE | 2023-07-19 15:19 | PM.CCHP ---
History of Present Illness Date of Service: 07/19/23 Attending physician on admission: Pebbles Pillai Chief Complaint: Weakness Patient is a 82 Y F, hypertension, recent diagnosis shingles, p/w lethargy, failure to thrive; of note, patient accompanied by daughter, son-in-law, who are primary historians, report patient with persistent pain d/t shingles, likely consuming morphine more frequently than prescribed in past week; additionally, patient with nausea, vomiting, decreased PO intake, thought to be due to morphine; otherwise, patient daughter reports possible chills, denies other infectious symptoms; patient given 1L IVF during initial management in ED; work-up initiated, found to have hyponatremia 118, started on normal saline 75 mL/hr in ED Review of Systems Review of Systems: Yes all other systems are reviewed and are negative Constitutional: Constitutional: Reports as per [facility] Past Medical History Medical History Effusion, left knee Goiter High cholesterol Hyperparathyroidism Hypertension Hypertensive emergency Left knee pain On beta april at home Osteoporosis Renal impairment Subclinical hyperthyroidism Vitamin D deficiency Family History Family History Father No problems noted. Mother No problems noted. Surgical History Surgical History H/O colonoscopy History of esophagogastroduodenoscopy (EGD) Hx of cataract extraction Hx of hysterectomy Social History Social History Household Members Other:: lives with her daughter Alcohol intake: never Patient Tobacco Use Status: Never used Tobacco Smoked in Last 30 Days: No Use of substances other than those prescribed or required for medical reasons: No Advance Directives: No Current occupational status: unemployed Meds Allergies Allergy/AdvReac Type Severity Reaction Status Date / Time No Known Allergies Allergy Verified 07/19/23 10:36 Active Medications: Current Medications Sodium Chloride (Ns) 1,000 mls @ 75 mls/hr IVCONT .[id number] PAUL Home Medications Medication Instructions Recorded Confirmed Last Taken Type atorvastatin 20 mg tablet 20 mg PO DAILY 08/29/20 02/03/23 Unknown History trazodone 100 mg tablet 100 mg PO DAILY 08/29/20 02/03/23 Unknown History fluticasone propionate 50 1 - 2 spray intranasal DAILY PRN 07/10/21 02/03/23 Unknown History mcg/actuation nasal Nasal Congestion spray,suspension gabapentin 300 mg capsule 1 cap PO BEDTIME 07/10/21 02/03/23 Unknown History amlodipine 2.5 mg tablet 2.5 mg PO QAM 11/23/22 02/03/23 Unknown History benazepril 10 mg tablet 10 mg PO DAILY 02/03/23 02/03/23 Unknown History latanoprost 0.005 % eye drops 0 drp ophthalmic (eye) 02/03/23 02/03/23 Unknown History tramadol 50 mg tablet 50 mg PO Q8H PRN severe pain 02/03/23 02/03/23 Unknown History Physical Exam Vital Signs: Vital Signs: Last Vital Signs Temp 98.7 F 07/19/23 10:29 Pulse 84 07/19/23 10:29 Resp 22 H 07/19/23 10:29 BP 132/65 07/19/23 10:29 Pulse Ox 94 07/19/23 10:29 O2 Del Method Room Air 07/19/23 10:29 BMI result Body Mass Index 28.5 Results Labs 07/19/23 12:48 07/19/23 12:48 Labs: Laboratory Results - last 24 hr 07/19/23 07/19/23 07/19/23 12:47 12:48 12:48 MCV 81.0 MCH 27.6 MCHC 34.1 RDW 13.0 Plt Count 114 L D MPV 11.9 Immature Gran % (Auto) 0.7 H Neut % (Auto) 69.8 Lymph % (Auto) 15.6 L [place] % (Auto) 13.7 H Eos % (Auto) 0.0 Baso % (Auto) 0.2 Lymph # (Auto) 0.9 L [place] # (Auto) 0.8 Eos # (Auto) 0.0 Baso # (Auto) 0.0 Abs Immat Gran (auto) 0.04 H Absolute Neuts (auto) 4.0 Absolute Nucleated RBC 0.000 Nucleated RBC % (auto) 0.0 Anion Gap 12 Estim Creat Clear Calc 31.5 Estimated GFR 46 Random Glucose 96 Calcium 7.9 L D Total Bilirubin 0.8 Direct Bilirubin 0.2 AST 33 H ALT 19 Alkaline Phosphatase 59 B-Natriuretic Peptide Total Protein 7.3 Albumin 3.8 Lipase 19 Urine Color Urine Appearance Urine pH Ur Specific [place] Urine Protein Urine Glucose (UA) Urine Ketones Urine Blood Urine Nitrite Ur Leukocyte Esterase Urine RBC Urine WBC Ur Squamous Epith Cells Urine Bacteria Hyaline Casts Influenza Type A (PCR) NEGATIVE Influenza Type B (PCR) NEGATIVE RSV RNA Qual (PCR) NEGATIVE SARS-CoV-2 RNA (RT-PCR) NEGATIVE 07/19/23 07/19/23 12:48 13:07 MCV MCH MCHC RDW Plt Count MPV Immature Gran % (Auto) Neut % (Auto) Lymph % (Auto) [place] % (Auto) Eos % (Auto) Baso % (Auto) Lymph # (Auto) [place] # (Auto) Eos # (Auto) Baso # (Auto) Abs Immat Gran (auto) Absolute Neuts (auto) Absolute Nucleated RBC Nucleated RBC % (auto) Anion Gap Estim Creat Clear Calc Estimated GFR Random Glucose Calcium Total Bilirubin Direct Bilirubin AST ALT Alkaline Phosphatase B-Natriuretic Peptide 230 H Total Protein Albumin Lipase Urine Color Yellow Urine Appearance Clear Urine pH 6.0 Ur Specific [place] 1.010 Urine Protein Negative Urine Glucose (UA) Negative Urine Ketones Negative Urine Blood Negative Urine Nitrite Negative Ur Leukocyte Esterase Small (1+) H Urine RBC 0-2 Urine WBC 0-5 Ur Squamous Epith Cells 0-2 Urine Bacteria None Seen Hyaline Casts 0-2 Influenza Type A (PCR) Influenza Type B (PCR) RSV RNA Qual (PCR) SARS-CoV-2 RNA (RT-PCR) Imaging Radiologist's Impressions: Impressions Chest X-Ray 07/19/23 12:37 IMPRESSION: 1. Bilateral low lung volumes. 2. Elevation the right hemidiaphragm. 3. Accentuation of the pulmonary vasculature. 4. Trace left-sided pleural effusion. Assessment and Plan Plan Patient is a 82 Y with hypertension, hyperthyroidism, recent diagnosis earle, p/t ED on 07/19 w/ Time Spent With Patient Time: Total time managing care of this patient today ____ minutes.
[2023-07-19] MEDS: 0.9 % Sodium Chloride 1,000 ML 75 ML IVCONT (15:28)
--- NOTE | 2023-07-19 15:32 | PC.NURSE ---
Patient alert and oriented x 3. family at bedside. orthostatics negative. tele: sinus rythym 80's NA-118 Patient weak and exhausted. Patient having 8/10 pain at shingles site. Shingles crusted over states still leaking a little. Patient getting admitted to ICU. Will continue with plan of care.
[2023-07-19 15:55] VITALS: BP 121/73; PULSE 88; RESP 20; TEMP 36.9; O2SAT 93
[2023-07-19] MEDS: Gabapentin 600 MG TABLET PO (16:24)
[2023-07-19 16:30] LABS: Anion Gap 12 (12-20); Blood Urea Nitrogen 20 mg/dL (9-16); Calcium 7.8 mg/dL (8.4-10.2); Carbon Dioxide 20 mmol/L (22-29); Chloride 94 mmol/L (96-108); Creatinine Clr Calc Pharmacy 31.7; Estimated Glomerular Filt Rate 46; Glucose Random 80 mg/dL (60-115); Potassium 4.8 mmol/L (3.3-5.1); Sodium 121 mmol/L (135-145)
--- NOTE | 2023-07-19 16:39 | P.CONCC_ITS ---
History of Present Illness Data of Consult Service Date: 07/19/23 Requesting physician: Jono Philip Primary Care Provider: Evi Thomson MD [facility] Past Medical History Medical History Effusion, left knee Goiter High cholesterol Hyperparathyroidism Hypertension Hypertensive emergency Left knee pain On beta april at home Osteoporosis Renal impairment Subclinical hyperthyroidism Vitamin D deficiency Family History Family History Father No problems noted. Mother No problems noted. Surgical History Surgical History H/O colonoscopy History of esophagogastroduodenoscopy (EGD) Hx of cataract extraction Hx of hysterectomy Social History Social History Household Members Other:: lives with her daughter Alcohol intake: never Patient Tobacco Use Status: Never used Tobacco Smoked in Last 30 Days: No Use of substances other than those prescribed or required for medical reasons: No Advance Directives: No Current occupational status: unemployed Meds Allergies Allergy/AdvReac Type Severity Reaction Status Date / Time No Known Allergies Allergy Verified 07/19/23 10:36 Active Medications: Current Medications Sodium Chloride (Ns) 1,000 mls @ 75 mls/hr IVCONT .[id number] PAUL Last Admin: 07/19/23 15:28 Dose: 75 mls/hr Home Medications Medication Instructions Recorded Confirmed Last Taken Type atorvastatin 20 mg tablet 20 mg PO DAILY 08/29/20 02/03/23 Unknown History trazodone 100 mg tablet 100 mg PO DAILY 08/29/20 02/03/23 Unknown History fluticasone propionate 50 1 - 2 spray intranasal DAILY PRN 07/10/21 02/03/23 Unknown History mcg/actuation nasal Nasal Congestion spray,suspension gabapentin 300 mg capsule 1 cap PO BEDTIME 07/10/21 02/03/23 Unknown History amlodipine 2.5 mg tablet 2.5 mg PO QAM 11/23/22 02/03/23 Unknown History benazepril 10 mg tablet 10 mg PO DAILY 02/03/23 02/03/23 Unknown History latanoprost 0.005 % eye drops 0 drp ophthalmic (eye) 02/03/23 02/03/23 Unknown History tramadol 50 mg tablet 50 mg PO Q8H PRN severe pain 02/03/23 02/03/23 Unknown History Physical Exam Vital Signs: Vital Signs: Last Vital Signs Temp 98.5 F 07/19/23 15:55 Pulse 88 07/19/23 15:55 Resp 20 07/19/23 15:55 BP 121/73 07/19/23 15:55 Pulse Ox 93 07/19/23 15:55 O2 Del Method Room Air 07/19/23 15:55 BMI result Body Mass Index 28.5 Results Labs 07/19/23 12:48 07/19/23 16:02 Labs: Short CBC 07/19/23 Range/Units 12:48 WBC 5.8 (4.8-10.8) X10*3/uL Hgb 11.9 L (12.0-16.0) g/dl Hct 34.9 L (37.0-47.0) % Plt Count 114 L D (160-400) X10*3/uL BMP 07/19/23 07/19/23 12:48 16:02 Sodium 118 L* 121 L Potassium 4.9 4.8 Chloride 89 L 94 L Carbon Dioxide 22 20 L BUN 23 H 20 H Creatinine 1.13 1.12 Calcium 7.9 L D 7.8 L Liver Function 07/19/23 Range/Units 12:48 Total Bilirubin 0.8 (0.0-1.0) mg/dL Direct Bilirubin 0.2 (0.0-0.5) mg/dL AST 33 H (5-31) U/L ALT 19 (0-31) U/L Alkaline Phosphatase 59 (39-117) U/L Albumin 3.8 (3.5-5.0) g/dL Urine 07/19/23 Range/Units 13:07 Urine Color Yellow Urine Appearance Clear Urine pH 6.0 (5.0-9.0) Ur Specific [place] 1.010 (1.005-1.025) Urine Protein Negative (Neg-Trace) mg/dL Urine Glucose (UA) Negative (Negative) mg/dL Assessment and Plan (1) Acute hyponatremia: Status: Acute Plan Patient is a 82 Y F, hypertension, recent diagnosis shingles, p/w lethargy, failure to thrive; of note, patient accompanied by daughter, son-in-law, who are primary historians, report patient with persistent pain d/t shingles, likely taking morphine more frequently than prescribed in recent days; additionally, patient daughter, son-in-law reports patient with nausea, vomiting, decreased PO intake, thought to be in part due to morphine; patient given 1L IVF during initial management in ED; work-up initiated, found to have hyponatremia 118, started on normal saline 75 mL/hr; ED consulted for ICU admission; upon assessment, patient well, non-toxic appearing, without gross neurological deficits; discussion had with ED to repeat sodium, if improving appropriately, consider admit floor; repeat sodium demonstrating hyponatremia slowly improving to 121; upon reassessment, patient clinically stable, to admit floor; ICU av ailable for any additional questions, concerns, or change in clinical status;
[2023-07-19 17:19] LABS: Creatinine Urine 40.14 mg/dL
--- NOTE | 2023-07-19 17:40 | P.HPHOSP_ITS ---
History of Present Illness Date of Service: 07/19/23 Attending physician on admission: Marcelo Cintron Chief Complaint: confusion 82-year-old female with history of osteoporosis, subclinical hyperthyroidism on methimazole, hypertension, hyperparathyroidism, hyperlipidemia presents to the ED earlier today for evaluation of generalized weakness and uncontrolled pain of the right flank. The patient was diagnosed with shingles on 07/16 and discharged with Valtrex, prednisone, morphine which she reports she has been taking as prescribed. Upon further questioning, the patient is confused and is unable to provide much history. She does state that she has chest pain worse with deep inspiration but no shortness of breath, lightheadedness, palpitations. Discussed case with patient's daughter on the phone who tells me for the last few days the patient has been confused and getting lost when her baseline mentation is sharp. On arrival, vital signs stable. Hematology [place] baseline. Renal function baseline comatose BUN slightly elevated at 23, creatinine 1.13. Initial sodium 118, chloride 89, calcium 7.9, electrolytes otherwise normal. Troponin undetectable. BNP 230. Chest x-ray shows bilateral low lung volumes with elevated right hemidiaphragm and trace left-sided pleural effusion with accentiation of the pulmonary vasculature. In the ED, received 1 L IV NS with improvement in sodium to 121, placed on maintenance IV NS at 75 cc/hour. Initially plan was to admit to ICU. However patient was evaluated by scale model maker recommending management on medical floors. Review of Systems Review of Systems: Yes Unobtainable due to mental status [facility] Medical History Effusion, left knee Goiter High cholesterol Hyperparathyroidism Hypertension Hypertensive emergency Left knee pain On beta april at home Osteoporosis Renal impairment Subclinical hyperthyroidism Vitamin D deficiency Family History Father No problems noted. Mother No problems noted. Surgical History H/O colonoscopy History of esophagogastroduodenoscopy (EGD) Hx of cataract extraction Hx of hysterectomy Social History Household Members Other:: lives with her daughter Alcohol intake: never Patient Tobacco Use Status: Never used Tobacco Smoked in Last 30 Days: No Use of substances other than those prescribed or required for medical reasons: No Advance Directives: No Current occupational status: unemployed Meds Allergies Allergy/AdvReac Type Severity Reaction Status Date / Time No Known Allergies Allergy Verified 07/19/23 10:36 Active Medications: Current Medications Sodium Chloride (Ns) 1,000 mls @ 75 mls/hr IVCONT .[id number] PAUL Last Admin: 07/19/23 15:28 Dose: 75 mls/hr Home Medications Medication Instructions Recorded Confirmed Last Taken Type atorvastatin 20 mg tablet 20 mg PO DAILY 08/29/20 02/03/23 Unknown History trazodone 100 mg tablet 100 mg PO DAILY 08/29/20 02/03/23 Unknown History fluticasone propionate 50 1 - 2 spray intranasal DAILY PRN 07/10/21 02/03/23 Unknown History mcg/actuation nasal Nasal Congestion spray,suspension benazepril 10 mg tablet 10 mg PO DAILY 02/03/23 02/03/23 Unknown History latanoprost 0.005 % eye drops 1 drp ophthalmic (eye) BEDTIME 02/03/23 02/03/23 Unknown History amlodipine 5 mg tablet 5 mg PO DAILY 07/19/23 Unknown History Physical Exam Vital Signs and Narrative: Vital Signs: Last Vital Signs Temp 98.5 F 07/19/23 15:55 Pulse 88 07/19/23 15:55 Resp 20 07/19/23 15:55 BP 121/73 07/19/23 15:55 Pulse Ox 93 07/19/23 15:55 O2 Del Method Room Air 07/19/23 15:55 BMI result Body Mass Index 28.5 Constitutional - Awake and Alert, No apparent distress Eyes - PERRLA, EOMI Cardiovascular - S1S2, RRR, No edema Chest- reproducible chest pain to palpation across anterior chest Respiratory - Normal lung expansion, Normal respiratory effort, No respiratory distress, CTA bilaterally Gastrointestinal - NT / ND; +BS; No rebound or guarding Extremities - no calf tenderness bilaterally, no swelling Skin - Warm/Dry. Extensive vesicular rash on erythematous base covering right flank into right side with some drying/scabbing of lesions Neurological - Alert & oriented to self only, CN II-XII in tact, 5/5 strength BUE and BLE Psychological - Appropriate affect Results Labs 07/19/23 12:48 07/19/23 16:02 Labs: Laboratory Results - last 24 hr 07/19/23 07/19/23 07/19/23 12:47 12:48 12:48 MCV 81.0 MCH 27.6 MCHC 34.1 RDW 13.0 Plt Count 114 L D MPV 11.9 Immature Gran % (Auto) 0.7 H Neut % (Auto) 69.8 Lymph % (Auto) 15.6 L [place] % (Auto) 13.7 H Eos % (Auto) 0.0 Baso % (Auto) 0.2 Lymph # (Auto) 0.9 L [place] # (Auto) 0.8 Eos # (Auto) 0.0 Baso # (Auto) 0.0 Abs Immat Gran (auto) 0.04 H Absolute Neuts (auto) 4.0 Absolute Nucleated RBC 0.000 Nucleated RBC % (auto) 0.0 Anion Gap 12 Estim Creat Clear Calc 31.5 Estimated GFR 46 Random Glucose 96 Calcium 7.9 L D Total Bilirubin 0.8 Direct Bilirubin 0.2 AST 33 H ALT 19 Alkaline Phosphatase 59 B-Natriuretic Peptide Total Protein 7.3 Albumin 3.8 Lipase 19 Urine Color Urine Appearance Urine pH Ur Specific [place] Urine Protein Urine Glucose (UA) Urine Ketones Urine Blood Urine Nitrite Ur Leukocyte Esterase Urine RBC Urine WBC Ur Squamous Epith Cells Urine Bacteria Hyaline Casts Ur Random Sodium Urine Creatinine Influenza Type A (PCR) NEGATIVE Influenza Type B (PCR) NEGATIVE RSV RNA Qual (PCR) NEGATIVE SARS-CoV-2 RNA (RT-PCR) NEGATIVE 07/19/23 07/19/23 07/19/23 12:48 13:07 13:07 MCV MCH MCHC RDW Plt Count MPV Immature Gran % (Auto) Neut % (Auto) Lymph % (Auto) [place] % (Auto) Eos % (Auto) Baso % (Auto) Lymph # (Auto) [place] # (Auto) Eos # (Auto) Baso # (Auto) Abs Immat Gran (auto) Absolute Neuts (auto) Absolute Nucleated RBC Nucleated RBC % (auto) Anion Gap Estim Creat Clear Calc Estimated GFR Random Glucose Calcium Total Bilirubin Direct Bilirubin AST ALT Alkaline Phosphatase B-Natriuretic Peptide 230 H Total Protein Albumin Lipase Urine Color Yellow Urine Appearance Clear Urine pH 6.0 Ur Specific [place] 1.010 Urine Protein Negative Urine Glucose (UA) Negative Urine Ketones Negative Urine Blood Negative Urine Nitrite Negative Ur Leukocyte Esterase Small (1+) H Urine RBC 0-2 Urine WBC 0-5 Ur Squamous Epith Cells 0-2 Urine Bacteria None Seen Hyaline Casts 0-2 Ur Random Sodium 30.0 Urine Creatinine 40.14 Influenza Type A (PCR) Influenza Type B (PCR) RSV RNA Qual (PCR) SARS-CoV-2 RNA (RT-PCR) 07/19/23 16:02 MCV MCH MCHC RDW Plt Count MPV Immature Gran % (Auto) Neut % (Auto) Lymph % (Auto) [place] % (Auto) Eos % (Auto) Baso % (Auto) Lymph # (Auto) [place] # (Auto) Eos # (Auto) Baso # (Auto) Abs Immat Gran (auto) Absolute Neuts (auto) Absolute Nucleated RBC Nucleated RBC % (auto) Anion Gap 12 Estim Creat Clear Calc 31.7 Estimated GFR 46 Random Glucose 80 Calcium 7.8 L Total Bilirubin Direct Bilirubin AST ALT Alkaline Phosphatase B-Natriuretic Peptide Total Protein Albumin Lipase Urine Color Urine Appearance Urine pH Ur Specific [place] Urine Protein Urine Glucose (UA) Urine Ketones Urine Blood Urine Nitrite Ur Leukocyte Esterase Urine RBC Urine WBC Ur Squamous Epith Cells Urine Bacteria Hyaline Casts Ur Random Sodium Urine Creatinine Influenza Type A (PCR) Influenza Type B (PCR) RSV RNA Qual (PCR) SARS-CoV-2 RNA (RT-PCR) Imaging Radiologist's Impressions: Impressions Chest X-Ray 07/19/23 12:37 IMPRESSION: 1. Bilateral low lung volumes. 2. Elevation the right hemidiaphragm. 3. Accentuation of the pulmonary vasculature. 4. Trace left-sided pleural effusion. Assessment and Plan (1) Acute hyponatremia: Status: Acute (2) Herpes zoster: Status: Acute (3) Acute metabolic encephalopathy: Status: Acute Plan 82-year-old female with history of osteoporosis, subclinical hyperthyroidism on methimazole, hypertension, hyperparathyroidism, hyperlipidemia admitted for acute hyponatremia with metabolic encephalopathy. #Acute hyponatremia -etiology unclear at this time -Urine studies and serum osm pending -Na 118 --> 121. Hold further IVF to avoid overcorrection -Check serum Na q4h -Fluid restrict to 1.2 L -Nephrology consult #Acute metabolic encephalopathy -likekly 2/2 above -Head CT pending # acute herpes zoster- local -continue Valtrex (initiated 07/16) -continue prednisone -pain control p.r.n. # hypocalcemia -initiate calcium carbonate 1000 mg daily # hypertension -blood pressure reasonably controlled -continue home meds # subclinical hyperthyroidism -continue methimazole DVT prophylaxis-Lovenox Full code Patient requires inpatient stay at least 2 midnights for management of acute hypo natremia with metabolic encephalopathy requiring closely monitored repletion of sodium as well as expert consultation Time Spent With Patient Time: Total time managing care of this patient today ____ minutes. Quality Stroke Does the patient have a stroke diagnosis?: No VTE Prior VTE?: No VTE Risk Level:: Medical - moderate - high VTE Device Contraindication: Treatment Not Indicated VTE Drug Contraindication: N/A - Med Ordered
[2023-07-19 17:58] LABS: Osmolality Urine 272 mosm/kg (373-1093)
--- NOTE | 2023-07-19 18:46 | PHA.MEDREC ---
Pharmacy Consult ? Medication Reconciliation Pharmacy has completed the medication reconciliation. Patient's duaghter Brigid confirmed the medications. Report no longer taking the morphine. Alexa Valencia, PharmD
[2023-07-19 19:07] VITALS: BP 139/70; PULSE 87; RESP 18; TEMP 37.2; O2SAT 97
[2023-07-19] MEDS: valACYclovir HCL 1,000 MG TABLET 1000 MG PO (19:12)
[2023-07-19] MEDS: Enoxaparin Sodium 40 MG/0.4 ML SYRINGE SUBCUT (19:12)
[2023-07-19 19:46] LABS: Sodium 122 mmol/L (135-145)
[2023-07-19 19:48] VITALS: BP 162/78; PULSE 97; RESP 20; TEMP 36.9; O2SAT 93
[2023-07-19 19:50] LABS: Osmolality, Serum 259 mosm/kg (281-305)
[2023-07-19 21:11] LABS: Sodium 121 mmol/L (135-145)
[2023-07-19] MEDS: Gabapentin 100 MG CAPSULE PO (21:54)
[2023-07-19] MEDS: traZODone HCL 100 MG TABLET PO (21:54)
[2023-07-19] MEDS: 0.9 % Sodium Chloride Flush 3 ML SYRINGE IVFLUSH (21:54)
[2023-07-20] VITALS (8 sets, daily range): BP systolic 109–172; BP diastolic 53–80; PULSE 68–105; RESP 15–20; TEMP 36.2–38.3; O2SAT 92–97
--- NOTE | 2023-07-20 01:39 | PC.NURSE ---
During admission pt stated she is independent at baseline and has never suffered a fall prior to admission. During the post-fall assessment with MD, pt admitted to frequent falls at home. Pt fall risk assessment updated in chart per policy.?Bed alarm on. Call willams within reach. Video monitor in pt room. Pt verbalized understanding of proper use of call willams.
[2023-07-20] MEDS: valACYclovir HCL 1,000 MG TABLET 1000 MG PO ×3 (02:19→18:05)
[2023-07-20] MEDS: Urea 15 GM POWDER PO ×3 (02:19→18:10)
[2023-07-20 07:12] LABS: Basophils Percent Auto 0.3 % (0-2); Hematocrit 33.5 % (37.0-47.0); Hemoglobin 11.1 g/dl (12.0-16.0); Imm Gran Abs Auto 0.03 X10*3/uL (0.00-0.03); Imm Gran Pct Auto 0.5 % (0.0-0.4); Lymphocytes Percent Auto 30.7 % (20-40); MANUAL DIFF FLAG SCAN; Mean Corpuscular HGB Conc 33.1 g/dl (31.0-35.0); Mean Corpuscular Hemoglobin 27.5 pg (27.0-33.0); Mean Corpuscular Volume 83.1 fL (80.0-98.0); Mean Platelet Volume 12.4 fL (9.4-12.3); Monocytes Absolute Auto 1.3 X10*3/uL (0.1-1.2); Monocytes Percent Auto 20.7 % (2-11); Neutrophils Absolute Auto 3.1 x10*3/uL (2.0-8.3); Neutrophils Percent Auto 47.8 % (45-73); Platelet Count 103 X10*3/uL (160-400); Red Blood Count 4.03 X10*6/uL (4.20-5.50); Red Cell Distribution Width 13.4 % (11.0-16.0); SCAN SMEAR FLAG 1; White Blood Count 6.4 X10*3/uL (4.8-10.8)
[2023-07-20 07:26] LABS: Anion Gap 9 (12-20); Blood Urea Nitrogen 35 mg/dL (9-16); Calcium 7.2 mg/dL (8.4-10.2); Carbon Dioxide 21 mmol/L (22-29); Chloride 96 mmol/L (96-108); Creatinine Clr Calc Pharmacy 35.7; Estimated Glomerular Filt Rate 52; Glucose Random 84 mg/dL (60-115); Potassium 4.8 mmol/L (3.3-5.1); Sodium 121 mmol/L (135-145)
[2023-07-20 07:37] LABS: SLIDE REVIEW VERIFIED
[2023-07-20] MEDS: Atorvastatin Calcium 20 MG TABLET PO (08:10)
[2023-07-20] MEDS: amLODIPine Besylate 5 MG TABLET PO (08:10)
[2023-07-20] MEDS: predniSONE 20 MG TABLET 40 MG PO (08:10)
[2023-07-20] MEDS: methIMAzole 5 MG TABLET 2.5 MG PO (08:11)
[2023-07-20] MEDS: Cholecalciferol (Vitamin D3) 25 MCG TABLET PO (08:11)
[2023-07-20] MEDS: lisinopriL 10 MG TABLET PO (08:11)
[2023-07-20] MEDS: 0.9 % Sodium Chloride Flush 3 ML SYRINGE IVFLUSH ×2 (08:11→18:10)
[2023-07-20] MEDS: Gabapentin 100 MG CAPSULE PO ×2 (08:11→21:06)
--- NOTE | 2023-07-20 11:40 | P.PNIM_ITS ---
Subjective Subjective Date of Service: 07/20/23 Review of Systems Follow up hyponatremia denies pain, no nausea or vomiting poor po intake last few days Physical Exam Vital Signs: Vital Signs: Last Vital Signs Temp 98.5 F 07/20/23 07:46 Pulse 82 07/20/23 07:46 Resp 15 07/20/23 07:46 BP 133/64 07/20/23 07:46 Pulse Ox 93 07/20/23 07:46 O2 Del Method Room Air 07/20/23 07:46 BMI result Body Mass Index 30.0 Appearing in no acute distress lung sounds are clear to auscultation heart regular rate rhythm, clear S1, S2 positive bowel sounds, abdomen is soft, nontender neuro patient is alert x3, no focal deficits Objective Data Active Medications Acetaminophen (Acetaminophen 325 Mg Tablet) 650 mg PO Q6H PRN PRN Reason: Pain, Mild (Pain Scale 1-3) Amlodipine Besylate (Amlodipine Besylate 5 Mg Tablet) 5 mg PO DAILY [facility]; Protocol Last Admin: 07/20/23 08:10 Dose: 5 mg Documented By: QUANG Atorvastatin Calcium (Atorvastatin Calcium 20 Mg Tablet) 20 mg PO DAILY [facility] Last Admin: 07/20/23 08:10 Dose: 20 mg Documented By: QUANG Calcium Carbonate (Calcium Carbonate 500 Mg Tablet) 1,000 mg PO DAILY [facility] Last Admin: 07/20/23 08:11 Dose: 1,000 mg Documented By: QUANG Docusate Sodium (Docusate Sodium 100 Mg Capsule) 100 mg PO DAILY PRN PRN Reason: Constipation Enoxaparin Sodium (Enoxaparin Sodium 40 Mg/0.4 Ml Syringe) 40 mg SUBCUT Q24H [facility] Last Admin: 07/19/23 19:12 Dose: 40 mg Documented By: BETHANY Gabapentin (Gabapentin 100 Mg Capsule) 100 mg PO BID [facility] Last Admin: 07/20/23 08:11 Dose: 100 mg Documented By: QUANG Latanoprost (Latanoprost 0.005 % Ophth Sena 2.5 Ml Drops) 1 drop EYE-BOTH BEDTIME [facility] Last Admin: 07/19/23 21:54 Dose: Not Given Documented By: ADENIKE Non-Admin Reason: Med Not Available Lisinopril (Lisinopril 10 Mg Tablet) 10 mg PO DAILY [facility] Last Admin: 07/20/23 08:11 Dose: 10 mg Documented By: QUANG Methimazole (Methimazole 5 Mg Tablet) 2.5 mg PO DAILY [facility] Last Admin: 07/20/23 08:11 Dose: 2.5 mg Documented By: QUANG Morphine Sulfate (Morphine Sulfate 2 Mg/Ml Cartridge) 2 mg IVPUSH Q4H PRN; Protocol PRN Reason: Pain, Severe (Pain Scale 7-10) Ondansetron HCl (Ondansetron Hcl 4 Mg/2 Ml Vial) 4 mg IVPUSH Q8H PRN PRN Reason: Nausea and Vomiting Oxycodone HCl (Oxycodone Hcl Immed Release 5 Mg Tablet) 5 mg PO Q6H PRN PRN Reason: Pain, Moderate(Pain Scale 4-6) Prednisone (Prednisone 20 Mg Tablet) 40 mg PO DAILY [facility] Last Admin: 07/20/23 08:10 Dose: 40 mg Documented By: QUANG Sodium Chloride (0.9 % Sodium Chloride Flush 3 Ml Syringe) 3 ml IVFLUSH QSHIFT [facility] Last Admin: 07/20/23 08:11 Dose: 3 ml Documented By: QUANG Trazodone HCl (Trazodone Hcl 100 Mg Tablet) 100 mg PO BEDTIME [facility] Last Admin: 07/19/23 21:54 Dose: 100 mg Documented By: ADENIKE Valacyclovir HCl (Valacyclovir Hcl 1,000 Mg Tablet) 1,000 mg PO Q8H [facility] Last Admin: 07/20/23 09:56 Dose: 1,000 mg Documented By: QUANG Vitamin D (Cholecalciferol (Vitamin D3) 25 Mcg Tablet) 25 mcg PO DAILY [facility] Last Admin: 07/20/23 08:11 Dose: 25 mcg Documented By: QUANG Labs 07/20/23 06:54 07/20/23 06:53 Labs: Laboratory Results - last 24 hr 07/19/23 07/19/23 07/19/23 12:47 12:48 12:48 MCV 81.0 MCH 27.6 MCHC 34.1 RDW 13.0 Plt Count 114 L D MPV 11.9 Immature Gran % (Auto) 0.7 H Neut % (Auto) 69.8 Lymph % (Auto) 15.6 L Rowan % (Auto) 13.7 H Eos % (Auto) 0.0 Baso % (Auto) 0.2 Lymph # (Auto) 0.9 L Rowan # (Auto) 0.8 Eos # (Auto) 0.0 Baso # (Auto) 0.0 Abs Immat Gran (auto) 0.04 H Absolute Neuts (auto) 4.0 Absolute Nucleated RBC 0.000 Nucleated RBC % (auto) 0.0 Smear Tech's Comments Anion Gap 12 Estim Creat Clear Calc 31.5 Estimated GFR 46 Random Glucose 96 Osmolality Calcium 7.9 L D Total Bilirubin 0.8 Direct Bilirubin 0.2 AST 33 H ALT 19 Alkaline Phosphatase 59 B-Natriuretic Peptide Total Protein 7.3 Albumin 3.8 Lipase 19 Urine Color Urine Appearance Urine pH Ur Specific Robert Lee Urine Protein Urine Glucose (UA) Urine Ketones Urine Blood Urine Nitrite Ur Leukocyte Esterase Urine RBC Urine WBC Ur Squamous Epith Cells Urine Bacteria Hyaline Casts Urine Osmolality Ur Random Sodium Urine Creatinine Influenza Type A (PCR) NEGATIVE Influenza Type B (PCR) NEGATIVE RSV RNA Qual (PCR) NEGATIVE SARS-CoV-2 RNA (RT-PCR) NEGATIVE 07/19/23 07/19/23 07/19/23 12:48 13:07 13:07 MCV MCH MCHC RDW Plt Count MPV Immature Gran % (Auto) Neut % (Auto) Lymph % (Auto) Rowan % (Auto) Eos % (Auto) Baso % (Auto) Lymph # (Auto) Rowan # (Auto) Eos # (Auto) Baso # (Auto) Abs Immat Gran (auto) Absolute Neuts (auto) Absolute Nucleated RBC Nucleated RBC % (auto) Smear Tech's Comments Anion Gap Estim Creat Clear Calc Estimated GFR Random Glucose Osmolality Calcium Total Bilirubin Direct Bilirubin AST ALT Alkaline Phosphatase B-Natriuretic Peptide 230 H Total Protein Albumin Lipase Urine Color Yellow Urine Appearance Clear Urine pH 6.0 Ur Specific Robert Lee 1.010 Urine Protein Negative Urine Glucose (UA) Negative Urine Ketones Negative Urine Blood Negative Urine Nitrite Negative Ur Leukocyte Esterase Small (1+) H Urine RBC 0-2 Urine WBC 0-5 Ur Squamous Epith Cells 0-2 Urine Bacteria None Seen Hyaline Casts 0-2 Urine Osmolality 272 L Ur Random Sodium Urine Creatinine Influenza Type A (PCR) Influenza Type B (PCR) RSV RNA Qual (PCR) SARS-CoV-2 RNA (RT-PCR) 07/19/23 07/19/23 07/19/23 13:07 16:02 19:33 MCV MCH MCHC RDW Plt Count MPV Immature Gran % (Auto) Neut % (Auto) Lymph % (Auto) Rowan % (Auto) Eos % (Auto) Baso % (Auto) Lymph # (Auto) Rowan # (Auto) Eos # (Auto) Baso # (Auto) Abs Immat Gran (auto) Absolute Neuts (auto) Absolute Nucleated RBC Nucleated RBC % (auto) Smear Tech's Comments Anion Gap 12 Estim Creat Clear Calc 31.7 Estimated GFR 46 Random Glucose 80 Osmolality 259 L Calcium 7.8 L Total Bilirubin Direct Bilirubin AST ALT Alkaline Phosphatase B-Natriuretic Peptide Total Protein Albumin Lipase Urine Color Urine Appearance Urine pH Ur Specific Robert Lee Urine Protein Urine Glucose (UA) Urine Ketones Urine Blood Urine Nitrite Ur Leukocyte Esterase Urine RBC Urine WBC Ur Squamous Epith Cells Urine Bacteria Hyaline Casts Urine Osmolality Ur Random Sodium 30.0 Urine Creatinine 40.14 Influenza Type A (PCR) Influenza Type B (PCR) RSV RNA Qual (PCR) SARS-CoV-2 RNA (RT-PCR) 07/20/23 07/20/23 06:53 06:54 MCV 83.1 MCH 27.5 MCHC 33.1 RDW 13.4 Plt Count 103 L MPV 12.4 H Immature Gran % (Auto) 0.5 H Neut % (Auto) 47.8 Lymph % (Auto) 30.7 Rowan % (Auto) 20.7 H Eos % (Auto) 0.0 Baso % (Auto) 0.3 Lymph # (Auto) 2.0 Rowan # (Auto) 1.3 H Eos # (Auto) 0.0 Baso # (Auto) 0.0 Abs Immat Gran (auto) 0.03 Absolute Neuts (auto) 3.1 Absolute Nucleated RBC 0.000 Nucleated RBC % (auto) 0.0 Smear Tech's Comments VERIFIED Anion Gap 9 L Estim Creat Clear Calc 35.7 Estimated GFR 52 Random Glucose 84 Osmolality Calcium 7.2 L D Total Bilirubin Direct Bilirubin AST ALT Alkaline Phosphatase B-Natriuretic Peptide Total Protein Albumin Lipase Urine Color Urine Appearance Urine pH Ur Specific Robert Lee Urine Protein Urine Glucose (UA) Urine Ketones Urine Blood Urine Nitrite Ur Leukocyte Esterase Urine RBC Urine WBC Ur Squamous Epith Cells Urine Bacteria Hyaline Casts Urine Osmolality Ur Random Sodium Urine Creatinine Influenza Type A (PCR) Influenza Type B (PCR) RSV RNA Qual (PCR) SARS-CoV-2 RNA (RT-PCR) Microbiology Microbiology Results: Microbiology 07/19/23 Unknown Urine Culture - Final Urine clean catch - Urine khanna top Lactobacillus species Assessment and Plan (1) Acute metabolic encephalopathy: Status: Acute (2) Acute hyponatremia: Status: Acute Plan 82-year-old female with history of osteoporosis, subclinical hyperthyroidism on methimazole, hypertension, hyperparathyroidism, hyperlipidemia admitted for acute hyponatremia with metabolic encephalopathy. Acute hyponatremia possibly hypovolemic Na 118 --> 121. Check serum Na q4h Fluid restrict to 1.2 L Nephrology following urine osmo 272, sodium 30 Acute metabolic encephalopathy likely 2/[address] acute herpes zoster- local continue Valtrex (initiated 07/16) continue prednisone pain control p.r.n. hypocalcemia initiate calcium carbonate 1000 mg daily hypertension blood pressure reasonably controlled continue home meds subclinical hyperthyroidism continue methimazole DVT prophylaxis-Lovenox Attending Dr. Oreilly Full code Continue hospitalization for treatment of acute hyponatremia acquiring close monitoring and specialty consultation Time Spent With Patient Time: Total time managing care of this patient today ____ minutes. Quality Stroke Does the patient have a stroke diagnosis?: No VTE Prior VTE?: No VTE Risk Level:: Medical - moderate - high VTE Device Contraindication: Treatment Not Indicated VTE Drug Contraindication: N/A - Med Ordered
--- NOTE | 2023-07-20 11:53 | MHC.CM.PN ---
IMM 07/20. Pt admitted with severe hyponatremia, confusion. Pt SSO, intake done with maintenance and operations supervisor, pt lives alone at home, is independent/self-care. D/C plan is to return home self-care when medically cleared. Pts daughter will transport her home. Pt states her daughter is HCP, copy requested. PCP: Evi Thomson
[2023-07-20 12:41] LABS: Sodium 121 mmol/L (135-145)
[2023-07-20 14:03] LABS: Sodium Urine Random < 20.0 mmol/L
[2023-07-20 14:12] LABS: Osmolality Urine 404 mosm/kg (373-1093)
--- NOTE | 2023-07-20 16:02 | PC.NURSE ---
Patient is Slovenian speaking only Slovenian interp used for assessment and communication. A&OX4 speech clear. FREEMAN to command 5/5 sensation intact, +pp bilat no edema noted. Denies headache, dizziness or vision changes. co mild neck pain from sleeping this am. LSCTA no SOB or resp distress noted. NSR on tele. BS+X4 abdomen soft non-tender denies nausea/vomiting large soft BM this am. Urine specs sent per order in afternoon. Fluid restriction in place. Pt educated on need to utilize call willams for nurse to get OOB. Frequent reminders. Bed in lowest position alarm for safety. Will continue to monitor and report changes
[2023-07-20 16:44] LABS: Sodium 120 mmol/L (135-145)
[2023-07-20] MEDS: Enoxaparin Sodium 40 MG/0.4 ML SYRINGE SUBCUT (18:05)
[2023-07-20 20:45] LABS: Sodium 121 mmol/L (135-145)
[2023-07-20] MEDS: traZODone HCL 100 MG TABLET PO (21:06)
[2023-07-20] MEDS: Acetaminophen 325 MG TABLET 650 MG PO (21:26)
[2023-07-21] MEDS: valACYclovir HCL 1,000 MG TABLET 1000 MG PO ×3 (01:05→18:46)
[2023-07-21 01:18] LABS: Sodium 124 mmol/L (135-145)
[2023-07-21 03:36] VITALS: BP 119/61; PULSE 71; RESP 18; TEMP 36.4; O2SAT 97
[2023-07-21 07:11] LABS: Sodium 129 mmol/L (135-145)
[2023-07-21 07:12] LABS: Sodium 129 mmol/L (135-145)
[2023-07-21 07:21] LABS: Anion Gap 9 (12-20); Blood Urea Nitrogen 60 mg/dL (9-16); Carbon Dioxide 23 mmol/L (22-29); Chloride 102 mmol/L (96-108); Creatinine Clr Calc Pharmacy 26.9; Estimated Glomerular Filt Rate 37; Glucose Random 100 mg/dL (60-115); Potassium 5.2 mmol/L (3.3-5.1); Sodium 129 mmol/L (135-145)
[2023-07-21 07:36] LABS: Calcium 8.1 mg/dL (8.4-10.2)
[2023-07-21 07:40] VITALS: BP 133/62; PULSE 68; RESP 16; TEMP 36.1; O2SAT 97
[2023-07-21] MEDS: lisinopriL 10 MG TABLET PO (09:10)
[2023-07-21] MEDS: Gabapentin 100 MG CAPSULE PO (09:10)
[2023-07-21] MEDS: Cholecalciferol (Vitamin D3) 25 MCG TABLET PO (09:10)
[2023-07-21] MEDS: amLODIPine Besylate 5 MG TABLET PO (09:10)
[2023-07-21] MEDS: predniSONE 20 MG TABLET 40 MG PO (09:10)
[2023-07-21] MEDS: methIMAzole 5 MG TABLET 2.5 MG PO (09:10)
[2023-07-21] MEDS: Atorvastatin Calcium 20 MG TABLET PO (09:10)
[2023-07-21] MEDS: 0.9 % Sodium Chloride Flush 3 ML SYRINGE IVFLUSH ×2 (09:11→20:22)
[2023-07-21 11:26] VITALS: BP 136/64; PULSE 74; RESP 16; TEMP 36.2; O2SAT 97
--- NOTE | 2023-07-21 11:29 | HO.PM.IMPN ---
Subjective Subjective Date of Service: 07/21/23 Review of Systems Follow up hyponatremia denies pain, no nausea or vomiting poor po intake last few days Physical Exam Vital Signs: Vital Signs: Last Vital Signs Temp 97.2 F 07/21/23 11:26 Pulse 74 07/21/23 11:26 Resp 16 07/21/23 11:26 BP 136/64 07/21/23 11:26 Pulse Ox 97 07/21/23 11:26 O2 Del Method Room Air 07/21/23 11:26 BMI result Body Mass Index 30.0 Appearing in no acute distress lung sounds are clear to auscultation heart regular rate rhythm, clear S1, S2 positive bowel sounds, abdomen is soft, nontender neuro patient is alert x3, no focal deficits Objective Data Active Medications Acetaminophen (Acetaminophen 325 Mg Tablet) 650 mg PO Q6H PRN PRN Reason: Pain, Mild (Pain Scale 1-3) Last Admin: 07/20/23 21:26 Dose: 650 mg Documented By: BESSY Amlodipine Besylate (Amlodipine Besylate 5 Mg Tablet) 5 mg PO DAILY [facility]; Protocol Last Admin: 07/21/23 09:10 Dose: 5 mg Documented By: QUANG Atorvastatin Calcium (Atorvastatin Calcium 20 Mg Tablet) 20 mg PO DAILY [facility] Last Admin: 07/21/23 09:10 Dose: 20 mg Documented By: QUANG Calcium Carbonate (Calcium Carbonate 500 Mg Tablet) 1,000 mg PO DAILY [facility] Last Admin: 07/21/23 09:09 Dose: 1,000 mg Documented By: QUANG Docusate Sodium (Docusate Sodium 100 Mg Capsule) 100 mg PO DAILY PRN PRN Reason: Constipation Enoxaparin Sodium (Enoxaparin Sodium 40 Mg/0.4 Ml Syringe) 40 mg SUBCUT Q24H [facility] Last Admin: 07/20/23 18:05 Dose: 40 mg Documented By: QUANG Gabapentin (Gabapentin 100 Mg Capsule) 100 mg PO BID [facility] Last Admin: 07/21/23 09:10 Dose: 100 mg Documented By: QUANG Latanoprost (Latanoprost 0.005 % Ophth Sena 2.5 Ml Drops) 1 drop EYE-BOTH BEDTIME [facility] Last Admin: 07/21/23 00:37 Dose: Not Given Documented By: BESSY Non-Admin Reason: Med Not Available Lisinopril (Lisinopril 10 Mg Tablet) 10 mg PO DAILY [facility] Last Admin: 07/21/23 09:10 Dose: 10 mg Documented By: QUANG Methimazole (Methimazole 5 Mg Tablet) 2.5 mg PO DAILY [facility] Last Admin: 07/21/23 09:10 Dose: 2.5 mg Documented By: QUANG Morphine Sulfate (Morphine Sulfate 2 Mg/Ml Cartridge) 2 mg IVPUSH Q4H PRN; Protocol PRN Reason: Pain, Severe (Pain Scale 7-10) Ondansetron HCl (Ondansetron Hcl 4 Mg/2 Ml Vial) 4 mg IVPUSH Q8H PRN PRN Reason: Nausea and Vomiting Oxycodone HCl (Oxycodone Hcl Immed Release 5 Mg Tablet) 5 mg PO Q6H PRN PRN Reason: Pain, Moderate(Pain Scale 4-6) Prednisone (Prednisone 20 Mg Tablet) 40 mg PO DAILY [facility] Last Admin: 07/21/23 09:10 Dose: 40 mg Documented By: QUANG Sodium Chloride (0.9 % Sodium Chloride Flush 3 Ml Syringe) 3 ml IVFLUSH QSHIFT [facility] Last Admin: 07/21/23 09:11 Dose: 3 ml Documented By: QUANG Trazodone HCl (Trazodone Hcl 100 Mg Tablet) 100 mg PO BEDTIME [facility] Last Admin: 07/20/23 21:06 Dose: 100 mg Documented By: VASQUES Valacyclovir HCl (Valacyclovir Hcl 1,000 Mg Tablet) 1,000 mg PO Q8H [facility] Last Admin: 07/21/23 09:10 Dose: 1,000 mg Documented By: QUANG Vitamin D (Cholecalciferol (Vitamin D3) 25 Mcg Tablet) 25 mcg PO DAILY [facility] Last Admin: 07/21/23 09:10 Dose: 25 mcg Documented By: QUANG Labs 07/20/23 06:54 07/21/23 06:52 Labs: Laboratory Results - last 24 hr 07/20/23 07/20/23 07/21/23 Unknown Unknown 06:52 Anion Gap 9 L Estim Creat Clear Calc 26.9 Estimated GFR 37 Random Glucose 100 Calcium 8.1 L D Urine Osmolality 404 Ur Random Sodium < 20.0 Microbiology Microbiology Results: Microbiology 07/20/23 07:49 Blood Culture - Preliminary Blood - Venous No growth after 24 hours. 07/19/23 Unknown Urine Culture - Final Urine clean catch - Urine khanna top Lactobacillus species Assessment and Plan (1) Acute metabolic encephalopathy: Status: Acute (2) Acute hyponatremia: Status: Acute Plan 82-year-old female with history of osteoporosis, subclinical hyperthyroidism on methimazole, hypertension, hyperparathyroidism, hyperlipidemia admitted for acute hyponatremia with metabolic encephalopathy. Acute hyponatremia possibly hypovolemic Na 118 -->131 after urea>nephro rec giving D5W@150 x 3 hours then re-check sodium Fluid restrict to 1.2 L Nephrology following urine osmo 272, sodium 30 Acute metabolic encephalopathy. slowly improving likely 2/[address] acute herpes zoster- local continue Valtrex (initiated 07/16) continue prednisone gabapentin 200mg BID pain control p.r.n. hypocalcemia initiate calcium carbonate 1000 mg daily hypertension blood pressure reasonably controlled continue home meds subclinical hyperthyroidism continue methimazole DVT prophylaxis-Lovenox Attending Dr. Oreilly Full code Continue hospitalization for treatment of acute hyponatremia acquiring close monitoring and specialty consultation Time Spent With Patient Time: Total time managing care of this patient today ____ minutes. Quality Stroke Does the patient have a stroke diagnosis?: No VTE Prior VTE?: No VTE Risk Level:: Medical - moderate - high VTE Device Contraindication: Treatment Not Indicated VTE Drug Contraindication: N/A - Med Ordered
[2023-07-21 12:16] LABS: Anion Gap 14 (12-20); Blood Urea Nitrogen 50 mg/dL (9-16); Calcium 9.1 mg/dL (8.4-10.2); Carbon Dioxide 20 mmol/L (22-29); Chloride 102 mmol/L (96-108); Creatinine Clr Calc Pharmacy 26.6; Estimated Glomerular Filt Rate 37; Glucose Random 144 mg/dL (60-115); Potassium 4.8 mmol/L (3.3-5.1); Sodium 131 mmol/L (135-145)
[2023-07-21] MEDS: Dextrose 5 % 1,000 ML 100 ML IVCONT (12:44)
--- NOTE | 2023-07-21 13:58 | CONS_ITS ---
DATE OF SERVICE: 07/20/2023 REASON FOR CONSULTATION: I was asked to see patient to assist in evaluation and management of patient's hyponatremia as reflected by a serum sodium that was 118 on admission, whereas back in March was 140. Serum sodiums come up to 121. HISTORY OF PRESENT ILLNESS: In summary, the patient is an 82-year-old female with a history of hypertension, hypothyroidism, hyperlipidemia, presented to the ER complaining of generalized weakness and pain in the right flank. She was diagnosed with shingles back on July 16, started on Valtrex, prednisone, and morphine. The patient is a poor historian and admission note mentions about the pain associated with the shingles along with some lightheadedness and poor p.o. intake. She was given 1 L of normal saline. Her serum sodium came up from 118 to 121. PAST MEDICAL HISTORY: As mentioned above. MEDICATIONS ON ADMISSION: Include Lipitor, trazodone, benazepril, amlodipine, and there is mention made again of Valtrex and morphine. ALLERGIES: SHE HAS NO KNOWN DRUG ALLERGIES. SOCIAL HISTORY: She is a nonsmoker, nondrinker. No illicit drug use. REVIEW OF SYSTEMS: As noted above and somewhat limited. PHYSICAL EXAMINATION: VITAL SIGNS: Blood pressure has been somewhat labile from the 130s to 160 systolic. HEAD: Atraumatic and normocephalic. NECK: Supple. Mucous membranes are moist. LUNGS: Breath sounds bilaterally. CARDIAC: Regular rate and rhythm. ABDOMEN: Soft. EXTREMITIES: Show no edema. There is a rash in the right flank area with some scabbing, dry lesions. LABORATORY DATA: Sodium 129, potassium 4.8, chloride 96, bicarb 21, BUN 35, creatinine 1.0, calcium 7.2. As mentioned, serum sodium is 118 on admission. Urine studies showed a urine osm of 272 now, repeat is 404. Urine sodium was 30, now it is less than 20. IMPRESSION: 82-year-old admitted with recent shingles and now significant hyponatremia. Most likely, she has a combination of factors causing the hyponatremia including inappropriate ADH related to her pain presentation along with low solute intake and what appears to be a component of hypovolemic hyponatremia. Recommendations this time include check a.m. TSH and cortisol level. Continue p.o. fluid restriction. We will see about giving her some gentle normal saline and monitor serum sodium. She has been given urea, which will help as well. We will follow the patient closely with the team. Our goal is to not allow the serum sodium to correct by more than 6-8 mEq in 24 hours. We need to make sure we enforced the fluid restriction, as she had a full water pitcher at the bedside when I went to see her. We will follow the patient with the team. MD LEISA Dumont/TRUDI / [phone]
--- NOTE | 2023-07-21 14:17 | MHC.CM.PN ---
EMR reviewed and per MD rounds, pt is not medically cleared for D/C today. PT is recommending STR. This CM met with pt and embossing press operator apprentice about this and pt stated she does not have a preference in STR rehab facilities, but would like to stay near the [facility] and would like us to speak with her daughter Brigid about this. This CM called pts daughter Brigid and left a voicemail for her. Awaiting return call.
[2023-07-21 15:07] VITALS: BP 144/63; PULSE 70; RESP 14; TEMP 36.2; O2SAT 94
[2023-07-21] MEDS: Morphine Sulfate 2 MG/ML CARTRIDGE IVPUSH ×2 (15:26→23:49)
[2023-07-21 16:44] LABS: Anion Gap 10 (12-20); Blood Urea Nitrogen 42 mg/dL (9-16); Calcium 8.6 mg/dL (8.4-10.2); Carbon Dioxide 23 mmol/L (22-29); Chloride 102 mmol/L (96-108); Creatinine Clr Calc Pharmacy 25.4; Estimated Glomerular Filt Rate 35; Glucose Random 181 mg/dL (60-115); Potassium 5.3 mmol/L (3.3-5.1); Sodium 130 mmol/L (135-145)
--- NOTE | 2023-07-21 16:57 | PM.PNNEP ---
Subjective Subjective Date of Service: 07/21/23 Interval history: Seen and examined, event noted Physical Exam Vital Signs: Vital Signs: Last Vital Signs Temp 97.1 F 07/21/23 15:07 Pulse 70 07/21/23 15:07 Resp 14 07/21/23 15:07 BP 144/63 H 07/21/23 15:07 Pulse Ox 94 07/21/23 15:07 O2 Del Method Room Air 07/21/23 15:07 BMI result Body Mass Index 30.0 Objective Data Labs 07/20/23 06:54 07/21/23 16:23 Labs: Laboratory Results - last 24 hr 07/20/23 07/21/23 07/21/23 19:51 01:05 06:52 Sodium 121 L 124 L 129 L Potassium 5.2 H Chloride 102 Carbon Dioxide 23 Anion Gap 9 L BUN 60 H Creatinine 1.35 Estim Creat Clear Calc 26.9 Estimated GFR 37 Random Glucose 100 Calcium 8.1 L D 07/21/23 07/21/23 07/21/23 06:52 06:52 11:36 Sodium 129 L 129 L 131 L Potassium 4.8 Chloride 102 Carbon Dioxide 20 L Anion Gap 14 BUN 50 H Creatinine 1.37 Estim Creat Clear Calc 26.6 Estimated GFR 37 Random Glucose 144 H Calcium 9.1 D 07/21/23 16:23 Sodium 130 L Potassium 5.3 H Chloride 102 Carbon Dioxide 23 Anion Gap 10 L BUN 42 H Creatinine 1.43 H Estim Creat Clear Calc 25.4 Estimated GFR 35 Random Glucose 181 H Calcium 8.6 Microbiology Microbiology Results: Microbiology 07/20/23 09:25 Blood - Venous Blood Culture - Preliminary No growth after 24 hours. 07/20/23 07:49 Blood - Venous Blood Culture - Preliminary No growth after 24 hours. 07/19/23 Unknown Urine clean catch - Urine khanna top Urine Culture - Final Lactobacillus species Procedures Date of Service Date of Service: 07/21/23 Assessment & Plan Assessment and plan (1) Acute metabolic encephalopathy: Status: Acute (2) Acute hyponatremia: Status: Acute Plan 82-year-old female with history of osteoporosis, subclinical hyperthyroidism on methimazole, hypertension, hyperparathyroidism, hyperlipidemia admitted for hyponatremia with metabolic encephalopathy. Euvolemic vs Hypolvemic HypoNa: most likely multifact with pain incr ADh and poor po intake with low solute intake and hypovol SNa improved 120--> 129 this PM and thus D5W given to lessen rate of correction with close monitoroing Goali is to incr by 6-8 meq per 24 hrs Time Spent With Patient Time: Total time managing care of this patient today ____ minutes. Progress Note: Quality Stroke Does the patient have a stroke diagnosis?: No
--- NOTE | 2023-07-21 18:27 | PC.NURSE ---
Pt A&OX4. Pt reports feeling worse today increased pain to right flank shingles site. c/o feeling weak, dizzy, tired and nauseas. Zee Mahan LIVE GAMES DEALER notified. Gabapentin increased for evening dose. IV fluids started for increasing sodium and stopped at 1600. IV fluids restarted in evening per order. Medicated late afternoon with morphine for 8/10 pain to left flank with good effect. OOB to chair for meals. Family updated during shift. Will continue to monitor and report changes
[2023-07-21] MEDS: Enoxaparin Sodium 40 MG/0.4 ML SYRINGE SUBCUT (18:46)
[2023-07-21 19:37] VITALS: BP 141/69; PULSE 70; RESP 14; TEMP 36.2; O2SAT 97
[2023-07-21] MEDS: Gabapentin 100 MG CAPSULE 200 MG PO (20:20)
[2023-07-21] MEDS: Latanoprost 0.005 % Ophth Sol 2.5 ML DROPS 1 DROP EYE-BOTH (20:22)
[2023-07-21 20:48] LABS: Anion Gap 10 (12-20); Blood Urea Nitrogen 40 mg/dL (9-16); Calcium 8.8 mg/dL (8.4-10.2); Carbon Dioxide 23 mmol/L (22-29); Chloride 102 mmol/L (96-108); Creatinine Clr Calc Pharmacy 22.9; Estimated Glomerular Filt Rate 31; Glucose Random 189 mg/dL (60-115); Potassium 4.9 mmol/L (3.3-5.1); Sodium 130 mmol/L (135-145)
[2023-07-21 23:35] VITALS: BP 157/75; PULSE 75; RESP 20; TEMP 36.4; O2SAT 95
[2023-07-21] MEDS: traZODone HCL 100 MG TABLET PO (23:49)
[2023-07-22] MEDS: valACYclovir HCL 1,000 MG TABLET 1000 MG PO ×3 (00:08→18:14)
[2023-07-22 02:44] LABS: Anion Gap 11 (12-20); Blood Urea Nitrogen 38 mg/dL (9-16); Calcium 8.5 mg/dL (8.4-10.2); Carbon Dioxide 22 mmol/L (22-29); Chloride 102 mmol/L (96-108); Creatinine Clr Calc Pharmacy 27.5; Estimated Glomerular Filt Rate 38; Glucose Random 156 mg/dL (60-115); Potassium 5.1 mmol/L (3.3-5.1); Sodium 130 mmol/L (135-145)
[2023-07-22 03:59] VITALS: BP 124/57; PULSE 60; RESP 18; TEMP 36.2; O2SAT 95
[2023-07-22 08:00] VITALS: BP 157/73; PULSE 71; RESP 16; TEMP 36.7; O2SAT 98
--- NOTE | 2023-07-22 08:03 | PC.NURSE ---
Pt. na of 130 from 0224 and D5W bag of IVF completed at this time. Reported to Dr. Velarde.
--- NOTE | 2023-07-22 08:25 | MHC.CM.PN ---
This CM spoke with pts daughter Brigid to discuss STR options. [facility] has offered pt a bed for the pt, and pts daughter states that she is ok with her going to [facility]. CM will continue to follow for pts D/C.
[2023-07-22] MEDS: lisinopriL 10 MG TABLET PO (09:39)
[2023-07-22] MEDS: Cholecalciferol (Vitamin D3) 25 MCG TABLET PO (09:39)
[2023-07-22] MEDS: Gabapentin 100 MG CAPSULE 200 MG PO ×2 (09:40→20:19)
[2023-07-22] MEDS: predniSONE 20 MG TABLET 40 MG PO (09:40)
[2023-07-22] MEDS: Atorvastatin Calcium 20 MG TABLET PO (09:40)
[2023-07-22] MEDS: methIMAzole 5 MG TABLET 2.5 MG PO (09:40)
[2023-07-22] MEDS: amLODIPine Besylate 5 MG TABLET PO (09:40)
[2023-07-22] MEDS: 0.9 % Sodium Chloride Flush 3 ML SYRINGE IVFLUSH ×2 (09:41→16:11)
--- NOTE | 2023-07-22 10:23 | MHC.IC ---
PT HAS SHINGLES. Strict contact precautions and blistering areas must be overed at all times. Monitor for signs of spread.
--- NOTE | 2023-07-22 10:35 | MHC.CM.PN ---
EMR reviewed and per MD rounds, pt is not medically cleared for D/C at this time. D/C plan is for STR when medically cleared, [facility] following. CM will continue to follow for D/C.
[2023-07-22 11:08] LABS: Anion Gap 10 (12-20); Blood Urea Nitrogen 32 mg/dL (9-16); Calcium 8.9 mg/dL (8.4-10.2); Carbon Dioxide 25 mmol/L (22-29); Chloride 101 mmol/L (96-108); Creatinine Clr Calc Pharmacy 30.6; Estimated Glomerular Filt Rate 43; Glucose Random 153 mg/dL (60-115); Potassium 4.1 mmol/L (3.3-5.1); Sodium 132 mmol/L (135-145)
[2023-07-22 11:43] VITALS: BP 148/67; PULSE 77; RESP 16; TEMP 36.2; O2SAT 94
[2023-07-22 15:49] VITALS: BP 128/66; PULSE 79; RESP 14; TEMP 35.9; O2SAT 96
--- NOTE | 2023-07-22 17:34 | P.PNIM_ITS ---
Subjective Subjective Date of Service: 07/22/23 Interval History: seen and examined this morning follow up for hyponatremia, shingles feeling better today, sodium improved Review of Systems Review of Systems: Yes all other systems are reviewed and are negative Constitutional Constitutional: Denies chills and Denies fever(s) ENT Ears, Nose, Mouth, and Throat: Denies dizziness Cardiovascular Cardiovascular: Denies chest pain Neurologic Neurologic: Denies dizziness Physical Exam 2 Vital Signs: Vital Signs: Last Vital Signs Temp 96.7 F L 07/22/23 15:49 Pulse 79 07/22/23 15:49 Resp 14 07/22/23 15:49 BP 128/66 07/22/23 15:49 Pulse Ox 96 07/22/23 15:49 O2 Del Method Room Air 07/22/23 15:49 BMI result Body Mass Index 30.0 Const: General: cooperative, comfortable, no acute distress, alert and awake Nutritional Appearance: average body habitus Resp: Effort & Inspection: normal respiratory effort, able to speak in complete sentences, no respiratory distress and no use of accessory muscles GI: Inspection: No distended Palpation (GI): Soft to palpation Skin: Other: right side Neuro: General: moves all extremities Extrem: General: Yes no pedal edema Objective Data Active Medications Acetaminophen (Acetaminophen 325 Mg Tablet) 650 mg PO Q6H PRN PRN Reason: Pain, Mild (Pain Scale 1-3) Last Admin: 07/20/23 21:26 Dose: 650 mg Documented By: BESSY Amlodipine Besylate (Amlodipine Besylate 5 Mg Tablet) 5 mg PO DAILY [facility]; Protocol Last Admin: 07/22/23 09:40 Dose: 5 mg Documented By: LONNIE Atorvastatin Calcium (Atorvastatin Calcium 20 Mg Tablet) 20 mg PO DAILY [facility] Last Admin: 07/22/23 09:40 Dose: 20 mg Documented By: LONNIE Calcium Carbonate (Calcium Carbonate 500 Mg Tablet) 1,000 mg PO DAILY [facility] Last Admin: 07/22/23 09:40 Dose: 1,000 mg Documented By: LONNIE Docusate Sodium (Docusate Sodium 100 Mg Capsule) 100 mg PO DAILY PRN PRN Reason: Constipation Enoxaparin Sodium (Enoxaparin Sodium 40 Mg/0.4 Ml Syringe) 40 mg SUBCUT Q24H [facility] Last Admin: 07/21/23 18:46 Dose: 40 mg Documented By: QUANG Gabapentin (Gabapentin 100 Mg Capsule) 200 mg PO BID [facility] Last Admin: 07/22/23 09:40 Dose: 200 mg Documented By: LONNIE Latanoprost (Latanoprost 0.005 % Ophth Sena 2.5 Ml Drops) 1 drop EYE-BOTH BEDTIME [facility] Last Admin: 07/21/23 20:22 Dose: 1 drop Documented By: TERESE Lisinopril (Lisinopril 10 Mg Tablet) 10 mg PO DAILY [facility] Last Admin: 07/22/23 09:39 Dose: 10 mg Documented By: LONNIE Methimazole (Methimazole 5 Mg Tablet) 2.5 mg PO DAILY [facility] Last Admin: 07/22/23 09:40 Dose: 2.5 mg Documented By: LONNIE Morphine Sulfate (Morphine Sulfate 2 Mg/Ml Cartridge) 2 mg IVPUSH Q4H PRN; Protocol PRN Reason: Pain, Severe (Pain Scale 7-10) Last Admin: 07/21/23 23:49 Dose: 2 mg Documented By: TERESE Ondansetron HCl (Ondansetron Hcl 4 Mg/2 Ml Vial) 4 mg IVPUSH Q8H PRN PRN Reason: Nausea and Vomiting Oxycodone HCl (Oxycodone Hcl Immed Release 5 Mg Tablet) 5 mg PO Q6H PRN PRN Reason: Pain, Moderate(Pain Scale 4-6) Prednisone (Prednisone 20 Mg Tablet) 40 mg PO DAILY [facility] Last Admin: 07/22/23 09:40 Dose: 40 mg Documented By: LONNIE Sodium Chloride (0.9 % Sodium Chloride Flush 3 Ml Syringe) [facility] Last Admin: 07/22/23 16:11 Dose: 3 ml Documented By: SANDRA Trazodone HCl (Trazodone Hcl 100 Mg Tablet) 100 mg PO BEDTIME [facility] Last Admin: 07/21/23 23:49 Dose: 100 mg Documented By: TERESE Valacyclovir HCl (Valacyclovir Hcl 1,000 Mg Tablet) 1,000 mg PO Q8H [facility] Last Admin: 07/22/23 09:40 Dose: 1,000 mg Documented By: LONNIE Vitamin D (Cholecalciferol (Vitamin D3) 25 Mcg Tablet) 25 mcg PO DAILY [facility] Last Admin: 07/22/23 09:39 Dose: 25 mcg Documented By: LONNIE Labs 07/20/23 06:54 07/22/23 10:35 Labs: Laboratory Results - last 24 hr 07/21/23 07/22/23 07/22/23 20:16 02:24 02:24 Anion Gap 10 L Cancelled 11 L Estim Creat Clear Calc 22.9 Cancelled Estimated GFR 31 Random Glucose 189 H Calcium 8.8 07/22/23 07/22/23 07/22/23 02:24 02:24 02:24 Anion Gap Estim Creat Clear Calc 27.5 Estimated GFR Cancelled 38 Random Glucose Cancelled 156 H Calcium Cancelled 07/22/23 07/22/23 02:24 10:35 Anion Gap 10 L Estim Creat Clear Calc 30.6 Estimated GFR 43 Random Glucose 153 H Calcium 8.5 8.9 Microbiology Microbiology Results: Microbiology 07/20/23 09:25 Blood Culture - Preliminary Blood - Venous No growth after 48 hours. 07/20/23 07:49 Blood Culture - Preliminary Blood - Venous No growth after 48 hours. Assessment and Plan (1) Acute hyponatremia: Status: Acute (2) Acute metabolic encephalopathy: Status: Acute (3) Herpes zoster: Status: Acute Plan 82-year-old female with history of osteoporosis, subclinical hyperthyroidism on methimazole, hypertension, hyperparathyroidism, hyperlipidemia admitted for acute hyponatremia with metabolic encephalopathy. Acute hyponatremia Euvolemic vs Hypolvemic HypoNa: most likely multifactorial with pain incr ADh and poor po intake with low solute intake and hypovol Na 118 on admission, improved to 132 this morning Fluid restrict to 1.2 L Nephrology following Acute metabolic encephalopathy. slowly improving likely 2/[address] acute herpes zoster- local continue Valtrex (initiated 07/16) continue prednisone gabapentin 200mg BID pain control p.r.n. hypocalcemia continue calcium carbonate 1000 mg daily hypertension blood pressure reasonably controlled continue home meds subclinical hyperthyroidism continue methimazole DVT prophylaxis-Lovenox Attending Dr. Oreilly Full code seen by PT - rec STR Continue hospitalization for treatment of acute hyponatremia acquiring close monitoring and specialty consultation Time Spent With Patient Time: Total time managing care of this patient today ____ minutes. Quality Stroke Does the patient have a stroke diagnosis?: No VTE Prior VTE?: No VTE Risk Level:: Medical - moderate - high VTE Device Contraindication: Treatment Not Indicated VTE Drug Contraindication: N/A - Med Ordered
[2023-07-22] MEDS: Enoxaparin Sodium 40 MG/0.4 ML SYRINGE SUBCUT (18:14)
[2023-07-22 19:46] VITALS: BP 148/78; PULSE 90; RESP 14; TEMP 36; O2SAT 95
[2023-07-22] MEDS: Latanoprost 0.005 % Ophth Sol 2.5 ML DROPS 1 DROP EYE-BOTH (20:18)
[2023-07-22] MEDS: traZODone HCL 100 MG TABLET PO (20:19)
[2023-07-22 23:36] VITALS: BP 140/70; PULSE 68; RESP 18; TEMP 36.3; O2SAT 96
[2023-07-23] MEDS: valACYclovir HCL 1,000 MG TABLET 1000 MG PO ×2 (01:16→09:13)
[2023-07-23] MEDS: 0.9 % Sodium Chloride Flush 3 ML SYRINGE IVFLUSH ×2 (01:16→09:13)
[2023-07-23 03:16] VITALS: BP 150/70; PULSE 73; RESP 18; TEMP 36; O2SAT 97
[2023-07-23 07:28] VITALS: BP 139/80; PULSE 68; RESP 17; TEMP 36.2; O2SAT 97
[2023-07-23] MEDS: Cholecalciferol (Vitamin D3) 25 MCG TABLET PO (09:12)
[2023-07-23] MEDS: amLODIPine Besylate 5 MG TABLET PO (09:12)
[2023-07-23] MEDS: Atorvastatin Calcium 20 MG TABLET PO (09:12)
[2023-07-23] MEDS: lisinopriL 10 MG TABLET PO (09:13)
[2023-07-23] MEDS: Gabapentin 100 MG CAPSULE 200 MG PO (09:13)
[2023-07-23] MEDS: predniSONE 20 MG TABLET 40 MG PO (09:13)
[2023-07-23] MEDS: methIMAzole 5 MG TABLET 2.5 MG PO (09:13)
--- NOTE | 2023-07-23 10:49 | MHC.CM.PN ---
PT WILL DC TO [facility] TODAY FOR STR VIA BLS AT 1230 VM MESSAGE LEFT FOR PTS DAUGHTER, DOMINIQUE [phone]
[2023-07-23 11:40] VITALS: BP 130/86; PULSE 77; RESP 18; TEMP 36.4; O2SAT 96
--- NOTE | 2023-07-23 11:50 | P.DS_ITS ---
DS: Providers Provider Date of Service: 07/23/23 Date of admission: 07/19/23 17:33 Date of discharge: 07/23/23 Primary care physician: Evi Thomson MD Consults: 07/19/23 17:32 Consult to Nephrology Routine Consulting Provider: Derrick Maradiaga Reason for consultation: hyponatremia Attending physician on discharge: Saul Oreilly Discharging clinician: Alba Chong DS: Diagnosis Discharge Diagnosis (1) Acute hyponatremia: Status: Acute (2) Acute metabolic encephalopathy: Status: Acute (3) Herpes zoster: Status: Acute DS: Summary Hospital Course Hospital Course: From H&P on day of admission 82-year-old female with history of osteoporosis, subclinical hyperthyroidism on methimazole, hypertension, hyperparathyroidism, hyperlipidemia presents to the ED earlier today for evaluation of generalized weakness and uncontrolled pain of the right flank. The patient was diagnosed with shingles on 07/16 and discharged with Valtrex, prednisone, morphine which she reports she has been taking as prescribed. Upon further questioning, the patient is confused and is unable to provide much history. She does state that she has chest pain worse with deep inspiration but no shortness of breath, lightheadedness, palpitations. Discussed case with patient's daughter on the phone who tells me for the last few days the patient has been confused and getting lost when her baseline mentation is sharp. On arrival, vital signs stable. Hematology [place] baseline. Renal function baseline comatose BUN slightly elevated at 23, creatinine 1.13. Initial sodium 118, chloride 89, calcium 7.9, electrolytes otherwise normal. Troponin undetectable. BNP 230. Chest x-ray shows bilateral low lung volumes with elevated right hemidiaphragm and trace left-sided pleural effusion with accentiation of the pulmonary vasculature. In the ED, received 1 L IV NS with improvement in sodium to 121, placed on maintenance IV NS at 75 cc/hour. Initially plan was to admit to ICU. However patient was evaluated by fitting room associate recommending management on medical floors. Acute hyponatremia Seen by nephrology. Euvolemic vs Hypolvemic HypoNa: most likely multifactorial with pain increase ADh and poor po intake with low solute intake and hypovolemia Na 118 on admission, gradually improved to 132 with Fluid restrict of 1.2 L. Acute metabolic encephalopathy. likely 2/2 above. resolved, currently at baseline. acute herpes zoster- local continue Valtrex (initiated 07/16). recommend three more days for total of 10, received 7 days of steroids. continue gabapentin. Has not required any pain medication since 07/20. hypocalcemia started on calcium carbonate with improvement in levels. recommend outpatient follow up seen by PT - recommended STR Time Spent with Patient Time attestation: Total time managing care of this patient today ____ minutes. Discharge coordination time: Greater than 30 minutes Quality: Safe Use of Opioids Does Pt have an Active Cancer Diagnosis on the Problem List?: No Quality: Stroke Does the patient have a stroke diagnosis?: No Physical Exam Vital Signs: Vital Signs: Last Vital Signs Temp 97.6 F 07/23/23 11:40 Pulse 77 07/23/23 11:40 Resp 18 07/23/23 11:40 BP 130/86 07/23/23 11:40 Pulse Ox 96 07/23/23 11:40 O2 Del Method Room Air 07/23/23 11:40 BMI result Body Mass Index 30.0 DS: Data Data Completed and Pending Labs on day of discharge: Preliminary micro results at discharge 07/20/23 09:25 Blood Culture - Preliminary Blood - Venous No growth after 48 hours. 07/20/23 07:49 Blood Culture - Preliminary Blood - Venous No growth after 48 hours. Discharge Plan Discharge Anticipated Discharge Date/Time: 07/23/23 11:18 Patient Disposition: Xfer SNF Discharge Diagnosis: hyponatremia Referrals: [facility] [Outside] Evi Thomson MD [Primary Care Provider] - 1 Week Discharge Medications: New calcium carbonate [Oyster Shell Calcium 500] 500 mg calcium (1,250 mg) Tablet 500 mg PO DAILY 14 Days Qty: 14 0RF Continued cholecalciferol (vitamin D3) 25 mcg (1,000 unit) capsule 25 mcg PO DAILY 30 Days Qty: 30 1RF Prolia 60 mg/mL syringe 60 mg subcut [id number] Qty: 1 2RF methimazole 5 mg tablet 2.5 mg PO DAILY Qty: 15 11RF valacyclovir [Valtrex] 1 gram tablet 1,000 mg PO TID 7 Days Qty: 21 0RF gabapentin 100 mg capsule 100 mg PO BID Qty: 14 0RF amlodipine 5 mg tablet 5 mg PO DAILY atorvastatin 20 mg tablet 20 mg PO DAILY trazodone 100 mg tablet 100 mg PO BEDTIME latanoprost 0.005 % drops 1 drp ophthalmic (eye) BEDTIME benazepril 10 mg tablet 10 mg PO DAILY Discontinued prednisone 20 mg tablet 40 mg PO DAILY 5 Days Qty: 10 0RF Discharge Orders: Discharge Order (Routine); Ordered 07/23/23 Ordered By: Alba Chong Activity on Discharge: As tolerated Stand Alone Forms: Patient Portal Discharge page Care Plan Goals: see below Health Concerns: hyponatremia herpes zoster Plan of Treatment: for hyponatremia - continue fluid restriction 1500cc. recommend to repeat sodium levels in one week for herpes zoster - was started on antivirals on 07/16, recommend to continue valtrex for three more days low calcium - levels improved with supplementation call to schedule follow up appointment with PCP Assessment: see discharge summary
--- NOTE | 2023-07-23 15:12 | P.PNNP_ITS ---
Subjective Subjective Date of Service: 07/23/23 Interval history: seen and examined this morning follow up for hyponatremia, shingles feeling better today, sodium improved Physical Exam 2 Vital Signs: Vital Signs: Last Vital Signs Temp 97.6 F 07/23/23 11:40 Pulse 77 07/23/23 11:40 Resp 18 07/23/23 11:40 BP 130/86 07/23/23 11:40 Pulse Ox 96 07/23/23 11:40 O2 Del Method Room Air 07/23/23 11:40 BMI result Body Mass Index 30.0 Const: General: cooperative, comfortable, no acute distress, alert and awake Resp: Effort & Inspection: normal respiratory effort, able to speak in complete sentences, no respiratory distress and no use of accessory muscles GI: Palpation (GI): Soft to palpation Extrem: General: Yes no pedal edema Objective Data Labs 07/20/23 06:54 07/22/23 10:35 Microbiology Microbiology Results: Microbiology 07/20/23 09:25 Blood - Venous Blood Culture - Preliminary No growth after 48 hours. 07/20/23 07:49 Blood - Venous Blood Culture - Preliminary No growth after 48 hours. 07/19/23 Unknown Urine clean catch - Urine khanna top Urine Culture - Final Lactobacillus species Procedures Date of Service Date of Service: 07/23/23 Assessment & Plan Assessment and plan (1) Acute metabolic encephalopathy: Status: Acute (2) Acute hyponatremia: Status: Acute Plan Hypoosmolar Hypovolemic Hyponatremia Sosm 259 Kati <20 Improving so far with 0.95 saline Plan: - today lets continue volume assist with NaCl 2g BID x2 days - also lets give 0.9% saline for 1 day Time Spent With Patient Time: Total time managing care of this patient today ____ minutes. Progress Note: Quality Stroke Does the patient have a stroke diagnosis?: No
[2023-07-23 15:46] VITALS: BP 130/70; PULSE 81; RESP 14; TEMP 36.6; O2SAT 93
== END 2023-07-23 18:34 | disposition skilled nursing facility (03) | DRG 640 ==
LOC: HO.ED 15:46 → HO.EDOVER 17:47 → HO.IMC 18:08
PROVIDERS: Hospitalist; Internal Medicine; Internal Medicine Nephrology; Nurse Practitioner Acute Care; Admitting Provider Physician Assistant; Emergency Provider Emergency Medicine; PCP Internal Medicine; Visit Provider Physician Assistant Medical
DX: E87.1 Hypo-osmolality and hyponatremia (principal); G93.41 Metabolic encephalopathy; B02.9 Zoster without complications; E86.1 Hypovolemia; E78.00 Pure hypercholesterolemia, unspecified; E05.90 Thyrotoxicosis, unspecified without thyrotoxic crisis or storm; E83.51 Hypocalcemia; E86.0 Dehydration; Z20.822 Contact with and (suspected) exposure to COVID-19; Z79.899 Other long term (current) drug therapy
CPT/HCPCS: 0241U; 36415; 70450; 71045; 80048; 80076; 81001; 82570; 83690; 83880; 83930; 83935; 84295; 84300; 84484; 85025; 87040; 87086; 93005; 97116; 97162; 99285; 99291; J1650; J2270

== ENCOUNTER → 2023-07-19 17:33 | Outpatient (BNV) | payer MEDICARE, MEDICAID, SELFPAY | PROVIDERS: Admitting Provider Physician Assistant; Emergency Provider Emergency Medicine; PCP Internal Medicine; Visit Provider Physician Assistant | DX: E87.1 Hypo-osmolality and hyponatremia (principal); G93.41 Metabolic encephalopathy; B02.9 Zoster without complications | CPT/HCPCS: 99221; 99223; 99232; 99239 ==

== ENCOUNTER 2023-08-25 08:38 | Outpatient (REF) | payer MEDICARE, MEDICAID, SELFPAY ==
[2023-08-25 11:16] LABS: Creatinine Urine 215.49 mg/dL; Microalbum/Creatinine Ratio Ur 4.1 ug/mg cr (<30); Protein/Creatinine Ratio, Ur 0.06 (<0.2); Total Protein Urine Random 13 mg/dL (<12)
[2023-08-26 09:39] LABS: Calcium (PTHI) 9.1 mg/dL (8.6-10.4); PTHI 104 pg/mL (16-77)
== END 2023-08-25 08:39 | disposition home or self-care (01) ==
LOC: HO.LAB 08:38
PROVIDERS: Visit Provider Internal Medicine Nephrology
DX: I12.9 Hypertensive chronic kidney disease with stage 1 through stage 4 chronic kidney disease, or unspecified chronic kidney disease (principal); N18.32 Chronic kidney disease, stage 3b; N25.0 Renal osteodystrophy
CPT/HCPCS: 36415; 80051; 81001; 82040; 82043; 82306; 82310; 82565; 82570; 83735; 83970; 84100; 84156; 84520; 85025

== ENCOUNTER 2023-09-06 09:57 | Outpatient (REF) | payer MEDICARE, MEDICAID, SELFPAY ==
[2023-09-06 11:57] LABS: Estimated Average Glucose 105 mg/dL; Hemoglobin A1c % 5.3 % (<6.0)
[2023-09-06 12:28] LABS: Anion Gap 13 (12-20); Blood Urea Nitrogen 19 mg/dL (9-16); Calcium 9.2 mg/dL (8.4-10.2); Carbon Dioxide 23 mmol/L (22-29); Chloride 105 mmol/L (96-108); Estimated Glomerular Filt Rate 38; Glucose Random 132 mg/dL (60-115); Magnesium 2.2 mg/dL (1.6-2.6); Potassium 4.8 mmol/L (3.3-5.1); Sodium 136 mmol/L (135-145)
== END 2023-09-06 09:58 | disposition home or self-care (01) ==
LOC: HO.HHCL 09:57
PROVIDERS: Visit Provider Internal Medicine
DX: E87.1 Hypo-osmolality and hyponatremia (principal); R55 Syncope and collapse; E16.2 Hypoglycemia, unspecified
CPT/HCPCS: 36415; 80048; 83036; 83735

== ENCOUNTER 2023-09-30 11:10 | Outpatient (AMB) | payer MEDICARE, MEDICAID, SELFPAY ==
--- NOTE | 2023-09-30 11:31 | AM.OFFVISNUR ---
Intake Intake Visit Reasons: Prolia Allergies No Known Allergies Allergy (Verified 07/19/23 10:36) Office Meds Prolia 60 mg/mL subcutaneous syringe Performing Provider: Sarthak Reyes MD Performing Location: [facility] [place] Endocr[facility]ology Administered by: Maura Mahan LPN on 09/30/23 11:31 Dose Route Admin Location Dispensed Lot Number Expiration Date NDC Information Systems Security Officer 60 mg subcut Left arm 1 mL [id number] 02/12/26 AMGEN Coding Assessment & Plan Assessment & Plan Orders: Orders AMB Denosumab Injection Patient Supplied Today M81.0 - Age-related osteoporosis without current pathological fracture
== END 2023-09-30 11:30 | disposition home or self-care (01) ==
PROVIDERS: PCP Internal Medicine; Visit Provider Internal Medicine Endocrinology, Diabetes & Metabolism
DX: M81.0 Age-related osteoporosis without current pathological fracture (principal)

== ENCOUNTER → 2023-09-30 11:10 | Outpatient (BNVA) | payer MEDICARE, MEDICAID, SELFPAY | PROVIDERS: PCP Internal Medicine; Visit Provider Internal Medicine Endocrinology, Diabetes & Metabolism | DX: M81.0 Age-related osteoporosis without current pathological fracture (principal) | CPT/HCPCS: 96372; J0897 ==

== ENCOUNTER 2024-03-21 07:44 | Outpatient (REF) | payer MEDICARE, MEDICAID, SELFPAY ==
[2024-03-21 08:44] LABS: Anion Gap 15 (12-20); Blood Urea Nitrogen 25 mg/dL (9-16); Calcium 9.5 mg/dL (8.4-10.2); Carbon Dioxide 23 mmol/L (22-29); Chloride 108 mmol/L (96-108); Estimated Glomerular Filt Rate 40; Glucose Random 101 mg/dL (60-115); Potassium 4.5 mmol/L (3.3-5.1); Sodium 141 mmol/L (135-145)
== END 2024-03-21 07:45 | disposition home or self-care (01) ==
LOC: HO.LAB 07:44
PROVIDERS: PCP Internal Medicine; Visit Provider Internal Medicine Endocrinology, Diabetes & Metabolism
DX: M81.0 Age-related osteoporosis without current pathological fracture (principal)
CPT/HCPCS: 36415; 80048; 82040

== ENCOUNTER 2024-03-30 10:54 | Outpatient (AMB) | payer MEDICARE, MEDICAID, SELFPAY ==
--- NOTE | 2024-03-30 11:12 | AM.OFFVISNUR ---
Intake Intake Visit Reasons: Prolia Allergies No Known Allergies Allergy (Verified 07/19/23 10:36) Office Meds Prolia 60 mg/mL subcutaneous syringe Performing Provider: Sarthak Reyes MD [place] [facility] [place] Administered by: Maura Mahan LPN on 03/30/24 11:12 Dose Route Admin Location Dispensed Lot Number Expiration Date NDC Limousine Driver 60 mg subcut Right upper arm 1 mL [id number] 07/15/26 AMGEN Coding Assessment & Plan Assessment & Plan Orders: Orders AMB Denosumab Injection Patient Supplied Today M81.0 - Age-related osteoporosis without current pathological fracture Medications: New Prolia (denosumab) 60 mg subcut ONCE 1 mL 0RF NS M81.0 - Age-related osteoporosis without current pathological fracture
== END 2024-03-30 11:13 | disposition home or self-care (01) ==
PROVIDERS: PCP Internal Medicine; Visit Provider Internal Medicine Endocrinology, Diabetes & Metabolism
DX: M81.0 Age-related osteoporosis without current pathological fracture (principal)

== ENCOUNTER → 2024-03-30 10:54 | Outpatient (BNVA) | payer MEDICARE, MEDICAID, SELFPAY | PROVIDERS: PCP Internal Medicine; Visit Provider Internal Medicine Endocrinology, Diabetes & Metabolism | DX: M81.0 Age-related osteoporosis without current pathological fracture (principal) | CPT/HCPCS: 96372; J0897 ==

== ENCOUNTER 2024-04-11 10:04 | Outpatient (AMB) | payer MEDICARE, MEDICAID, SELFPAY ==
--- NOTE | 2024-04-11 10:14 | MHC.OFFVIS ---
Vital Signs 04/11/24 10:25 Height 5 ft 1 in Weight 138 lb 8 oz BMI 26.2 BP 130/72 Blood Pressure Location Lt brachial Position Sitting Pulse 70 Pulse Source Pulse Oximeter Pulse Oximetry (%) 96 Oxygen Delivery Method Room Air Intake Visit Reasons: [id number] Insomnia Intake Note: Patient presents for persistent Insomnia. Taking Mirtazapine and is not helping with sleep. Would like something that works to be able to sleep and for anxiety. Having muscle spasm. Clinical Lab Technologist Name: Brigid Dela Cruz Daughter Allergies No Known Allergies Allergy (Verified 04/11/24 10:22) Medication List - Last Reconciled 04/11/24 by Cora Maradiaga MD amlodipine 5 mg PO DAILY atorvastatin 20 mg PO DAILY benazepril 10 mg PO DAILY calcium carbonate (Oyster Shell Calcium 500) 500 mg PO DAILY 14 days cholecalciferol (vitamin D3) (Vitamin D3) 25 mcg PO DAILY denosumab (Prolia) 60 mg subcut [id number] denosumab (Prolia) 60 mg subcut [id number] latanoprost 0.005% 1 drp ophthalmic (eye) BEDTIME methimazole 2.5 mg (1/2 x 5 mg) PO DAILY HPI Comments Details: 83y/o Fcomes for sleep evaluation . Main complaints-insomnia, frequent arousals, loud snoring Sleep questionnaire- Difficulty falling asleep-yes Difficulty staying asleep-yes Number of arousals-5 Snoring-yes- LOUD Witnessed apneas-yes Gasping arousals-yes Nocturia-yes GERD-no Vivid dreams-no Acting out dreams -no Abnormal behavior in sleep-no ABnormal movements in sleep-yes Morning headaches-no Excessive daytime sleepiness-yes Daytime naps- no restless legs- yes- starts around 5 pm, describes as burning sensation, restlessness, muscle spasms - relieved with movement Hallucinations- no sleep paralysis- no Drop attacks- no Sleep study-no Sleep Hygiene- Sleep time-10pm Wake time -6am coffee/stimulant use- 1 Bedroom comfort- yes [facility] Medical History (Updated 04/11/24 @ 10:38 by Cora Maradiaga MD) Restless legs syndrome (RLS) Hypersomnia Snoring Acute hyponatremia Osteoporosis Hypertensive emergency On beta april at home Vitamin D deficiency Goiter Hyperparathyroidism Subclinical hyperthyroidism Effusion, left knee Renal impairment High cholesterol Hypertension Left knee pain Surgical History H/O colonoscopy History of esophagogastroduodenoscopy (EGD) Hx of cataract extraction Hx of hysterectomy Family History Father No problems noted. Mother No problems noted. Social History Household Members: None Household Members Other:: lives with her daughter Housing: House Do you presently have visiting nurse or other home services: No Alcohol intake: never Patient Tobacco Use Status: Never used Tobacco service: No Current occupational status: unemployed Physical Exam Vital Signs: Last Vital Signs Pulse 70 04/11/24 10:25 BP 130/72 04/11/24 10:25 Pulse Ox 96 04/11/24 10:25 Oxygen Delivery Method Room Air 04/11/24 10:25 BMI result Body Mass Index 26.2 Const General: cooperative, healthy appearing and comfortable Nutritional Appearance: average body habitus Orientation/consciousness: patient oriented x3 Eyes Pupils: Equal, round and reactive pupils present Neuro General: patient oriented x3, gait normal, tone normal, moves all extremities and no focal motor deficits Cranial nerves: Yes Facial sensation intact/muscles of mastication intact, Yes Equal, round and reactive pupils present, Yes Bilaterally intact EOM present, Yes Nystagmus not present, Yes Normal facial strength present, Yes Midline tongue present, Yes Symmetric palate elevation present and Yes Ability to bilaterally elevate shoulders present Cognition (Neuro): normal cognition Gait exam (Neuro): Normal gait present Motor exam (neuro): 5/5 motor strength present throughout and Normal motor muscle tone present throughout Deep tendon reflexes (DTR's): Right triceps reflex intensity grade: 1+, Left triceps reflex intensity grade: 1+, Rt Biceps (C5, C6): 1+, Left biceps reflex intensity grade: 1+, Right brachioradialis reflex intensity grade: 1+, Left brachioradialis reflex intensity grade: 1+, Right patellar reflex intensity grade: 1+ and Left patellar reflex intensity grade: 1+ Coordination: [id number] test normal Assessment & Plan Assessment & Plan (1) Snoring: Code(s): R06.83 - Snoring Category: Medical (2) Hypersomnia: Code(s): G47.10 - Hypersomnia, unspecified Category: Medical (3) Restless legs syndrome (RLS): Code(s): G25.81 - Restless legs syndrome Category: Medical Plan I will schedule her for a sleep study to r/o sleep apnea. Trial her on ropinirole XR 2mg q 4 pm and gabapentin 100mg qhs Check patients ferritin Vit B 12 TSH VIt D CBC CMP Orders: Orders Ferritin Today G25.81 - Restless legs syndrome, G47.10 - Hypersomnia, unspecified TSH reflex Free T4 Today G25.81 - Restless legs syndrome, G47.10 - Hypersomnia, unspecified Vitamin B12 and Folate Today G25.81 - Restless legs syndrome, G47.10 - Hypersomnia, unspecified Complete Blood Count Auto Diff Today G25.81 - Restless legs syndrome, G47.10 - Hypersomnia, unspecified RT home sleep study Today G47.10 - Hypersomnia, unspecified, R06.83 - Snoring Vitamin D 25-OH (D2 and D3) Today G25.81 - Restless legs syndrome, G47.10 - Hypersomnia, unspecified Comprehensive Met. Panel Today G25.81 - Restless legs syndrome, G47.10 - Hypersomnia, unspecified Medications: New ropinirole ER 2 mg PO .q 4pm 30 tabs 6RF gabapentin 100 mg PO BEDTIME 30 caps 6RF Coding Level of Care Code New Pt Level 4 (24689) Diagnoses Snoring R06.83 Hypersomnia G47.10 Restless legs syndrome (RLS) G25.81
[2024-04-11 10:25] VITALS: BP 130/72; PULSE 70; O2SAT 96; BMI 26.2
== END 2024-04-11 10:50 | disposition home or self-care (01) ==
LOC: HO.HSMC 10:04
PROVIDERS: PCP Internal Medicine; Visit Provider Psychiatry & Neurology Neurology
DX: R06.83 Snoring (principal); G47.10 Hypersomnia, unspecified; G25.81 Restless legs syndrome
CPT/HCPCS: 99204

== ENCOUNTER → 2024-04-11 10:04 | Outpatient (BNVA) | payer MEDICARE, MEDICAID, SELFPAY | PROVIDERS: PCP Internal Medicine; Visit Provider Psychiatry & Neurology Neurology | DX: G25.81 Restless legs syndrome (principal); G47.10 Hypersomnia, unspecified; R06.83 Snoring | CPT/HCPCS: 36415; 80053; 82306; 82607; 82728; 82746; 84443; 85025; 99202 ==

== ENCOUNTER 2024-04-11 10:52 | Outpatient (REF) | payer MEDICARE, MEDICAID, SELFPAY ==
[2024-04-11 17:54] LABS: MANUAL DIFF FLAG NO
[2024-04-11 18:18] LABS: Basophils Percent Auto 0.9 % (0-2); Eosinophils Absolute Auto 0.1 X10*3/uL (0.0-0.4); Eosinophils Percent Auto 2.4 % (0-4); Hematocrit 38.2 % (37.0-47.0); Hemoglobin 12.6 g/dl (12.0-16.0); Imm Gran Abs Auto 0.02 X10*3/uL (0.00-0.03); Imm Gran Pct Auto 0.4 % (0.0-0.4); Lymphocytes Absolute Auto 1.8 X10*3/uL (1.2-4.9); Lymphocytes Percent Auto 38.3 % (20-40); Mean Corpuscular Hemoglobin 27.4 pg (27.0-33.0); Mean Platelet Volume 11.7 fL (9.4-12.3); Monocytes Absolute Auto 0.5 X10*3/uL (0.1-1.2); Monocytes Percent Auto 10.6 % (2-11); Neutrophils Absolute Auto 2.2 x10*3/uL (2.0-8.3); Neutrophils Percent Auto 47.4 % (45-73); Platelet Count 174 X10*3/uL (160-400); Red Cell Distribution Width 13.7 % (11.0-16.0); White Blood Count 4.6 X10*3/uL (4.8-10.8)
[2024-04-11 18:55] LABS: Alanine Aminotransferase 12 U/L (0-31); Albumin Level 4.1 g/dL (3.5-5.0); Alkaline Phosphatase 74 U/L (39-117); Anion Gap 13 (12-20); Aspartate Amino Transferase 19 U/L (5-31); Bilirubin Total 0.9 mg/dL (0.0-1.0); Blood Urea Nitrogen 21 mg/dL (9-16); Calcium 9.3 mg/dL (8.4-10.2); Carbon Dioxide 23 mmol/L (22-29); Chloride 106 mmol/L (96-108); Estimated Glomerular Filt Rate 36; Glucose Random 84 mg/dL (60-115); Potassium 4.7 mmol/L (3.3-5.1); Sodium 137 mmol/L (135-145); Total Protein 7.9 g/dL (6.5-8.0)
[2024-04-11 19:04] LABS: Ferritin 58 ng/mL (10-250); TSH reflex Free T4 0.93 uIU/mL (0.32-4.0)
[2024-04-11 19:14] LABS: Folate 11.3 ng/mL (> or = 4.0); Vitamin B12 239 pg/mL (200-900)
[2024-04-17 17:28] LABS: Vitamin D 25-OH, D2 <4 ng/mL; Vitamin D 25-OH, D3 45 ng/mL; Vitamin D 25-OH, Total 45 ng/mL (30-100)
== END 2024-04-11 10:53 | disposition home or self-care (01) ==
LOC: HO.HKASLDS 10:52
PROVIDERS: Visit Provider Psychiatry & Neurology Neurology
DX: Z13.89 Encounter for screening for other disorder (principal)
CPT/HCPCS: 36415; 80053; 82306; 82607; 82728; 82746; 84443; 85025

== ENCOUNTER 2024-04-25 07:38 | Outpatient (REF) | payer MEDICARE, MEDICAID, SELFPAY ==
[2024-04-25 07:51] LABS: MANUAL DIFF FLAG NO
[2024-04-25 08:06] LABS: Basophils Percent Auto 0.6 % (0-2); Eosinophils Absolute Auto 0.1 X10*3/uL (0.0-0.4); Eosinophils Percent Auto 1.9 % (0-4); Hematocrit 38.7 % (37.0-47.0); Hemoglobin 12.6 g/dl (12.0-16.0); Imm Gran Abs Auto 0.01 X10*3/uL (0.00-0.03); Imm Gran Pct Auto 0.2 % (0.0-0.4); Lymphocytes Absolute Auto 1.8 X10*3/uL (1.2-4.9); Lymphocytes Percent Auto 37.7 % (20-40); Mean Corpuscular HGB Conc 32.6 g/dl (31.0-35.0); Mean Corpuscular Hemoglobin 26.9 pg (27.0-33.0); Mean Corpuscular Volume 82.7 fL (80.0-98.0); Mean Platelet Volume 10.7 fL (9.4-12.3); Monocytes Absolute Auto 0.4 X10*3/uL (0.1-1.2); Monocytes Percent Auto 7.3 % (2-11); Neutrophils Absolute Auto 2.5 x10*3/uL (2.0-8.3); Neutrophils Percent Auto 52.3 % (45-73); Platelet Count 194 X10*3/uL (160-400); Red Blood Count 4.68 X10*6/uL (4.20-5.50); Red Cell Distribution Width 13.3 % (11.0-16.0); White Blood Count 4.8 X10*3/uL (4.8-10.8)
[2024-04-25 08:47] LABS: Alanine Aminotransferase 13 U/L (0-31); Albumin Level 4.1 g/dL (3.5-5.0); Alkaline Phosphatase 68 U/L (39-117); Aspartate Amino Transferase 20 U/L (5-31); Bilirubin Direct 0.2 mg/dL (0.0-0.5); Bilirubin Total 1.1 mg/dL (0.0-1.0); Calcium 9.3 mg/dL (8.4-10.2); Total Protein 7.9 g/dL (6.5-8.0)
[2024-04-25 09:05] LABS: Free T4 (Free Thyroxine) 1.04 ng/dL (0.71-1.85)
[2024-04-27 03:29] LABS: Triiodothyronine T3 Total 92 ng/dL (76-181)
== END 2024-04-25 07:39 | disposition home or self-care (01) ==
LOC: HO.LAB 07:38
PROVIDERS: Absent Provider Internal Medicine Nephrology; PCP Internal Medicine; Visit Provider Internal Medicine Endocrinology, Diabetes & Metabolism
DX: M81.0 Age-related osteoporosis without current pathological fracture (principal); E05.90 Thyrotoxicosis, unspecified without thyrotoxic crisis or storm
CPT/HCPCS: 36415; 80076; 82310; 84439; 84443; 84480; 85025

== ENCOUNTER 2024-05-03 09:13 | Outpatient (AMB) | payer MEDICARE, MEDICAID, SELFPAY ==
[2024-05-03 09:14] VITALS: BP 122/66; PULSE 66; BMI 26.1
--- NOTE | 2024-05-03 09:14 | MHC.OFFVIS ---
Vital Signs 05/03/24 09:14 Height 5 ft 1 in Weight 138 lb 3.677 oz BMI 26.1 BP 122/66 Blood Pressure Location Lt brachial Position Sitting Pulse 66 Pulse Source Pulse Oximeter Intake Visit Reasons: Osteoporosis-lvm Intake Note: Patient present today for Osteoporosis follow up visit. Previously seen by Dr. Bah on 02/03/23. Clipper Machine Required: Yes Clipper Machine Language: Certified Nursing Assistant Instructor Name: Abner Information Interpreted: non-clinical & clinical Accompanied by: Daughter Allergies No Known Allergies Allergy (Verified 05/03/24 09:18) HPI Comments Details: 83 YO F with 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 The patient last saw Dr. Bah 02/03/2023 She was previously followed by Dr. Reyes from Endocrinology. She was last seen by him in 2006. She had a thyroid uptake and scan which revealed normal uptake, but in a heterogenous appearance in 2006. She had subclinical hyperthyroidism at that time. She subsequently had an US completed by Dr. Reyes 03/10/2007 which revealed no true nodules, only pseudonodules, so no biopsy was completed. She does report that after that time she saw an Education Program Associate in her home country of [facility] and did have a biopsy of the L lobe of the thyroid. She reports that this was benign. It is unclear which nodule was biopsied. She then had an US completed by her PCP here 09/14/19 which revealed multiple nodules bilaterally. There was mention of a L mid-upper pole 1.0 cm hypoechoic nodule, but the remainder were all subcentimeter. She was subsequently referred to Endocrinology. Images of this US were reviewed, and these nodules were felt to represent pseudonodules and not true nodules. No FNA biopsy was recommended. We did check full TFTs which revealed subclinical hyperthyroidism. She was started on Methimazole 2.5 mg PO daily given her age, and has tolerated treatment well without rash, frequent infection or jaundice. TSH has remained WNL. Her labs did reveal Calcium to be WNL but mild elevation of PTH. DEXA revealed severe Osteoporosis of the distal forearm, and Osteopenia at all other sites. 24 hour urine collection revealed very low calcium levels, indicating inadequate calcium intake. She was started on Calcium citrate 1 tab PO BID and remains on this now. PTH has now normalized. Denies any symptoms of hyper or hypothyroidism. Denies any family history of thyroid cancer. Denies any compressive symptoms currently. Thyroid US: 09/14/19 Right Thyroid Lobe: 5.9 x 2.1 x 2.1 cm, volume 13.6 mL. Previously 5.5 x 1.9 x 2.2 cm, volume 12.0 mL. Parenchyma: The gland echotexture is heterogeneous. Thyroid vascularity is increased. Left Thyroid Lobe: 5.4 x 1.4 x 2.4 cm, volume 9.5 mL. Previously 5.8 x 2.3 x 2.0 cm, volume 14.0 mL. Parenchyma: The gland echotexture is heterogeneous. Thyroid vascularity is increased. Isthmus: 1.0 cm in maximum AP dimension. Previously 1.1 cm. RIGHT THYROID LOBE: There are 3 nodules seen. 1. Location: Mid. Size: 1.1 x 0.7 x 0.9 cm. Previous: 0.8 x 0.9 x 0.8 cm. Nodule characteristics: Heterogeneous in echotexture and smoothly marginated. No calcification was present. There is intranodular vascular flow. 2. Location: Mid/lateral. Size: 0.7 x 0.6 x 0.6 cm. Previous: Not seen. Nodule characteristics: Heterogeneous and hyperechoic as with smooth margins. No calcifications identified. There is intranodular blood flow seen. 3. Location: Lower pole. Size: 1.6 x 1.4 x 1.3 cm. Previous: Not seen. Nodule characteristics: Heterogeneous in echotexture and smoothly marginated. Shadowing macrocalcification present. There is intranodular blood flow. ISTHMUS: 1. About the right superior isthmus there is a stable 0.6 x 0.4 x 0.7 cm hyperechoic and smoothly marginated nodule without calcification and with intranodular blood flow. Previously this measured 0.6 x 0.5 x 0.6 cm in size. 2. Location: Lower. Size: 1.1 x 0.7 x 0.9 cm. Previous: Not documented. Difficult to correlate on old study. Nodule characteristics: Heterogeneous in echotexture with smooth margins. No calcification seen. There is intranodular blood flow. 3. Location: Superior. Size: 1.1 x 0.7 x 0.8 cm. Previous: Not documented. Difficult to correlate on old study. Nodule characteristics: Heterogeneous in echotexture with smooth margins. Shadowing macrocalcification seen. There is intranodular blood flow. 4. Location: Lower. Size: 0.7 x 0.4 x 0.6 cm. Previous: Not documented. Difficult to correlate on old study. Nodule characteristics: Heterogeneous and hyperechoic with smooth margins. Shadowing macrocalcification seen. There is intranodular blood flow. LEFT THYROID LOBE: There are 2 nodules seen. 1. Location: Upper pole. Size: 0.7 x 0.3 x 0.7 cm. Previous: Not seen. Nodule characteristics: Heterogeneous in echotexture with smooth margins. No calcification is present. There is intranodular blood flow. 2. Location: Mid. Size: 0.6 x 0.5 x 0.5 cm. Previous: 0.8 x 0.5 x 0.6 cm. Nodule characteristics: Heterogeneous and hypoechoic in echotexture and partially cystic. Smooth margins. No calcification. There is intranodular blood flow present. NODES: No lymphadenopathy is seen in the tissue surrounding the thyroid gland. DEXA: 12/16/2022 FINDINGS: AP SPINE L1-L4: Current: BMD 0.982 g/cm2, Z-score 0.2, T-score -1.6, osteopenia, 5.0% decrease from baseline (<5% change is not significant). Baseline: BMD 1.034 g/cm2. LEFT FEMUR, NECK: Current: BMD 0.780 g/cm2, Z-score 0.4, T-score -1.9, osteopenia. Baseline: BMD 0.768 g/cm2. LEFT FEMUR, TOTAL: Current: BMD 0.873 g/cm2, Z-score 1.1, T-score -1.1, osteopenia, 0.8% decrease from baseline (<5% change is not significant). Baseline: BMD 0.880 g/cm2. RIGHT FOREARM RADIUS 33%: Current: BMD 0.654 g/cm2, Z-score 0.5, T-score -2.5, osteoporosis, 13.3% increase from baseline (<5% change is not significant). Baseline: BMD 0.577 g/cm2. Labs: Laboratory Tests 11/23/22 11/23/22 01/06/23 10:20 10:20 15:34 Sodium 138 139 Potassium 5.3 H 4.9 Creatinine 1.32 1.11 Estimated GFR 38 47 25-OH Vitamin D Total 46.5 TSH 1.17 Free T4 1.36 Total T3 115 PTH Intact 72 Calcium (PTH Intact) 9.4 currently on methimazole 2.5 mg q.d.. She received last Prolia injection on 03/30/2024. No fragility fx in past . On Prolia for 1 yr [facility] Medical History (Updated 04/11/24 @ 10:38 by Cora Maradiaga MD) Restless legs syndrome (RLS) Hypersomnia Snoring Acute hyponatremia Osteoporosis Hypertensive emergency On beta april at home Vitamin D deficiency Goiter Hyperparathyroidism Subclinical hyperthyroidism Effusion, left knee Renal impairment High cholesterol Hypertension Left knee pain Surgical History H/O colonoscopy History of esophagogastroduodenoscopy (EGD) Hx of cataract extraction Hx of hysterectomy Family History Father No problems noted. Mother No problems noted. Social History Household Members: None Household Members Other:: lives with her daughter Housing: House Do you presently have visiting nurse or other home services: No Alcohol intake: never Patient Tobacco Use Status: Never used Tobacco service: No Current occupational status: unemployed Physical Exam Vital Signs: Last Vital Signs Pulse 66 05/03/24 09:14 BP 122/66 05/03/24 09:14 BMI result Body Mass Index 26.1 Const Other: Thyroid gland is normal size weighs about 15 g. There are no thyroid nodules palpated Assessment & Plan Assessment & Plan (1) Osteoporosis: Code(s): M81.0 - Age-related osteoporosis without current pathological fracture Category: Medical Plan: This 83-year-old female with a history of osteoporosis and CKD stage IIIB. She is currently on Prolia 60 mg q.6 months for the past year. Would continue Prolia, calcium and vitamin-D supplementation (2) Subclinical hyperthyroidism: Code(s): E05.90 - Thyrotoxicosis, unspecified without thyrotoxic crisis or storm Category: Medical Plan: Clinically and biochemically euthyroid on 2.5 mg of methimazole. After careful discussion with the patient and her daughter fear program consultant guardian the options of treatment including continued use of methimazole, radioactive iodine and surgery, the patient daughter opting to stand the methimazole. She is currently biochemically and clinically euthyroid on 2.5 mg We will continue methimazole 2.5 mg Orders: Orders Triiodothyronine T3 Free 4 Months M25.462 - Effusion, left knee, M81.0 - Age-related osteoporosis without current pathological fracture Complete Blood Count Auto Diff 4 Months M25.462 - Effusion, left knee, M81.0 - Age-related osteoporosis without current pathological fracture Liver Panel 4 Months M25.462 - Effusion, left knee, M81.0 - Age-related osteoporosis without current pathological fracture Basic Metabolic Panel 4 Months M81.0 - Age-related osteoporosis without current pathological fracture Free T4 (Free Thyroxine) 4 Months M25.462 - Effusion, left knee, M81.0 - Age-related osteoporosis without current pathological fracture Thyroid Stimulating Hormone 4 Months M25.462 - Effusion, left knee, M81.0 - Age-related osteoporosis without current pathological fracture Calcium 4 Months M81.0 - Age-related osteoporosis without current pathological fracture Albumin Level 4 Months M81.0 - Age-related osteoporosis without current pathological fracture Coding Level of Care Code Est Pt Level 3 (49635) Diagnoses Osteoporosis M81.0 Subclinical hyperthyroidism E05.90
== END 2024-05-03 09:50 | disposition home or self-care (01) ==
PROVIDERS: PCP Internal Medicine; Visit Provider Internal Medicine Endocrinology, Diabetes & Metabolism
DX: M81.0 Age-related osteoporosis without current pathological fracture (principal); E05.90 Thyrotoxicosis, unspecified without thyrotoxic crisis or storm
CPT/HCPCS: 99213

== ENCOUNTER → 2024-05-03 09:13 | Outpatient (BNVA) | payer MEDICARE, MEDICAID, SELFPAY | PROVIDERS: PCP Internal Medicine; Visit Provider Internal Medicine Endocrinology, Diabetes & Metabolism | DX: M81.0 Age-related osteoporosis without current pathological fracture (principal); E05.90 Thyrotoxicosis, unspecified without thyrotoxic crisis or storm | CPT/HCPCS: 99212 ==

== ENCOUNTER 2024-05-05 17:17 | Outpatient (REF) | payer MEDICARE, MEDICAID, SELFPAY | END 2024-05-05 17:18 | disposition home or self-care (01) | LOC: HO.HHCLNP 17:17 | PROVIDERS: Visit Provider Nurse Practitioner Family | DX: N39.0 Urinary tract infection, site not specified (principal) | CPT/HCPCS: 87086; 87147 ==

== ENCOUNTER 2024-05-10 10:03 | Outpatient (REF) | payer MEDICARE, MEDICAID, SELFPAY ==
[2024-05-10 10:18] LABS: MANUAL DIFF FLAG NO
[2024-05-10 10:45] LABS: Basophils Percent Auto 0.8 % (0-2); Eosinophils Percent Auto 0.8 % (0-4); Hemoglobin 12.4 g/dl (12.0-16.0); Imm Gran Abs Auto 0.01 X10*3/uL (0.00-0.03); Imm Gran Pct Auto 0.2 % (0.0-0.4); Lymphocytes Absolute Auto 1.5 X10*3/uL (1.2-4.9); Lymphocytes Percent Auto 31.5 % (20-40); Mean Corpuscular HGB Conc 32.6 g/dl (31.0-35.0); Mean Corpuscular Hemoglobin 27.3 pg (27.0-33.0); Mean Corpuscular Volume 83.7 fL (80.0-98.0); Mean Platelet Volume 11.3 fL (9.4-12.3); Monocytes Absolute Auto 0.5 X10*3/uL (0.1-1.2); Monocytes Percent Auto 9.5 % (2-11); Neutrophils Absolute Auto 2.8 x10*3/uL (2.0-8.3); Neutrophils Percent Auto 57.2 % (45-73); Platelet Count 156 X10*3/uL (160-400); Red Blood Count 4.54 X10*6/uL (4.20-5.50); Red Cell Distribution Width 13.4 % (11.0-16.0); White Blood Count 4.8 X10*3/uL (4.8-10.8)
[2024-05-10 11:15] LABS: Albumin Level 4.1 g/dL (3.5-5.0); Anion Gap 10 (12-20); Blood Urea Nitrogen 22 mg/dL (9-16); Calcium 9.4 mg/dL (8.4-10.2); Carbon Dioxide 22 mmol/L (22-29); Chloride 102 mmol/L (96-108); Estimated Glomerular Filt Rate 23; Magnesium 2.1 mg/dL (1.6-2.6); Phosphorus 3.3 mg/dL (2.7-4.5); Potassium 5.2 mmol/L (3.3-5.1); Sodium 129 mmol/L (135-145)
[2024-05-10 11:30] LABS: Vitamin D 25-OH Total 40.1 ng/mL (>30)
[2024-05-10 11:59] LABS: Microalbumin Urine < 5.0 mg/L; Total Protein Urine Random < 7 mg/dL (<12)
[2024-05-10 12:20] LABS: Appearance Urine Clear; Color Urine Yellow; Glucose Urine UA Negative (Negative); Leukocyte Esterase Urine Small (1+) (Negative); Nitrite Urine Negative (Negative); PH 6.5 (5.0-9.0); Specific Gravity - Urine 1.015 (1.005-1.025); UMIC TRIGGER UA YES; Urine Blood Negative (Negative); Urine Ketones Negative (Negative); Urine Protein Negative (Neg-Trace)
[2024-05-10 12:36] LABS: Bacteria Urine None Seen (None Seen); Hyaline Casts Urine 0-2 /LPF (0-2); RBC Urine 0-2 /HPF (0-2); Squamous Epithelial Cell Urine 0-2 /HPF (0-2); WBC Urine 0-5 /HPF (0-5)
== END 2024-05-10 10:04 | disposition home or self-care (01) ==
LOC: HO.LAB 10:03
PROVIDERS: PCP Internal Medicine; Visit Provider Internal Medicine Nephrology
DX: N18.31 Chronic kidney disease, stage 3a (principal); N25.0 Renal osteodystrophy; I10 Essential (primary) hypertension
CPT/HCPCS: 36415; 80051; 81001; 81003; 82040; 82306; 82310; 82565; 82570; 83735; 83970; 84100; 84156; 84520; 85025

== ENCOUNTER → 2024-05-17 12:56 | Outpatient (REF) | payer MEDICARE, MEDICAID, SELFPAY | LOC: HO.SL 12:56 | PROVIDERS: Visit Provider Psychiatry & Neurology Neurology | DX: G47.33 Obstructive sleep apnea (adult) (pediatric) (principal); G47.10 Hypersomnia, unspecified; R06.83 Snoring | CPT/HCPCS: 95806 ==

== ENCOUNTER → 2024-05-17 13:39 | Outpatient (BNV) | payer MEDICARE, MEDICAID, SELFPAY | PROVIDERS: Visit Provider Psychiatry & Neurology Neurology | DX: G47.33 Obstructive sleep apnea (adult) (pediatric) (principal) | CPT/HCPCS: 95806 ==

== ENCOUNTER 2024-08-21 08:21 | Outpatient (REF) | payer MEDICARE, MEDICAID, SELFPAY ==
[2024-08-21 11:23] LABS: MANUAL DIFF FLAG NO
[2024-08-21 11:29] LABS: Basophils Percent Auto 0.6 % (0-2); Eosinophils Absolute Auto 0.1 X10*3/uL (0.0-0.4); Hematocrit 37.6 % (37.0-47.0); Hemoglobin 12.4 g/dl (12.0-16.0); Lymphocytes Absolute Auto 1.3 X10*3/uL (1.2-4.9); Lymphocytes Percent Auto 36.6 % (20-40); Mean Corpuscular Hemoglobin 27.4 pg (27.0-33.0); Mean Platelet Volume 11.8 fL (9.4-12.3); Monocytes Absolute Auto 0.3 X10*3/uL (0.1-1.2); Neutrophils Absolute Auto 1.9 x10*3/uL (2.0-8.3); Neutrophils Percent Auto 52.8 % (45-73); Platelet Count 167 X10*3/uL (160-400); Red Blood Count 4.53 X10*6/uL (4.20-5.50); Red Cell Distribution Width 14.2 % (11.0-16.0); White Blood Count 3.5 X10*3/uL (4.8-10.8)
[2024-08-21 11:53] LABS: Alanine Aminotransferase 14 U/L (0-31); Albumin Level 4.1 g/dL (3.5-5.0); Alkaline Phosphatase 56 U/L (39-117); Anion Gap 13 (12-20); Aspartate Amino Transferase 19 U/L (5-31); Bilirubin Direct 0.3 mg/dL (0.0-0.5); Bilirubin Total 0.9 mg/dL (0.0-1.0); Blood Urea Nitrogen 21 mg/dL (9-16); Calcium 9.6 mg/dL (8.4-10.2); Carbon Dioxide 23 mmol/L (22-29); Chloride 104 mmol/L (96-108); Estimated Glomerular Filt Rate 45; Glucose Random 102 mg/dL (60-115); Potassium 4.5 mmol/L (3.3-5.1); Sodium 135 mmol/L (135-145); Total Protein 7.6 g/dL (6.5-8.0)
[2024-08-21 12:16] LABS: Free T4 (Free Thyroxine) 0.94 ng/dL (0.71-1.85); Thyroid Stimulating Hormone 1.25 uIU/mL (0.32-4.0)
[2024-08-22 09:08] LABS: Triiodothyronine T3 Free 3.2 pg/mL (2.3-4.2)
[2024-08-24 00:59] LABS: TS Negative Control Passed; TS Panel A 0; TS Panel B 0; TS Positive Control Passed; TSpotTB Negative (Negative)
== END 2024-08-21 08:22 | disposition home or self-care (01) ==
LOC: HO.HHCL 08:21
PROVIDERS: Referring Provider Internal Medicine; Visit Provider Internal Medicine Endocrinology, Diabetes & Metabolism
DX: Z11.1 Encounter for screening for respiratory tuberculosis (principal); M25.462 Effusion, left knee; M81.0 Age-related osteoporosis without current pathological fracture
CPT/HCPCS: 36415; 80048; 80076; 84439; 84443; 84481; 85025; 86481

== ENCOUNTER 2024-09-04 09:00 | Outpatient (AMB) | payer MEDICARE, MEDICAID, SELFPAY ==
--- NOTE | 2024-09-04 09:02 | A.OFFVIS_ITS ---
Vital Signs 09/04/24 09:06 Height 5 ft 1 in Weight 137 lb BMI 25.9 BP 118/60 Blood Pressure Location Rt brachial Position Sitting Pulse 68 Pulse Source Pulse Oximeter Pulse Oximetry (%) 97 Oxygen Delivery Method Room Air Intake Visit Reasons: follow up Persistent Insomnia Intake Note: Patient presents for 5 mo fu-n Hypersomnia Painting Department Supervisor Required: Yes Painting Department Supervisor Language: Commercial Finance Analyst Services: Painting Department Supervisor Offered & Declined ([facility] sales and retail management recruiter services refused. Pt accompanied by daughter who will interpret. ) Painting Department Supervisor Name: Birgid Dela Cruz- Daughter Accompanied by: Daughter Allergies No Known Allergies Allergy (Verified 09/04/24 09:07) Medication List - Last Reconciled 09/04/24 by Cora Maradiaga MD amlodipine 5 mg PO DAILY atorvastatin 20 mg PO DAILY benazepril 10 mg PO DAILY calcium carbonate (Oyster Shell Calcium 500) 500 mg PO DAILY 14 days cholecalciferol (vitamin D3) (Vitamin D3) 25 mcg PO DAILY denosumab (Prolia) 60 mg subcut [id number] gabapentin 100 mg PO BEDTIME latanoprost 0.005% 1 drp ophthalmic (eye) BEDTIME methimazole 2.5 mg (1/2 x 5 mg) PO DAILY ropinirole ER 2 mg PO .q 4pm HPI Comments Details: 83y/o Fcomes for follow up. she did well with ropinirole XR 2mg q4 pm and gabapentin 100mg qhs and is on CPAP now for sleep apnea. she has been using CP AP for past 2 mths . she is doing well, sleeps better, compliant with CPAP. ON LICENSE OF [facility] Medical History (Updated 09/04/24 @ 09:19 by Cora Maradiaga MD) Obstructive sleep apnea hypopnea, mild Restless legs syndrome (RLS) Hypersomnia Snoring Acute hyponatremia Osteoporosis Hypertensive emergency On beta april at home Vitamin D deficiency Goiter Hyperparathyroidism Subclinical hyperthyroidism Effusion, left knee Renal impairment High cholesterol Hypertension Left knee pain Surgical History H/O colonoscopy History of esophagogastroduodenoscopy (EGD) Hx of cataract extraction Hx of hysterectomy Family History Father No problems noted. Mother No problems noted. Social History Household Members: None Household Members Other:: lives with her daughter Housing: House Do you presently have visiting nurse or other home services: No Alcohol intake: never Patient Tobacco Use Status: Never used Tobacco service: No Current occupational status: unemployed Physical Exam Vital Signs: Last Vital Signs Pulse 68 09/04/24 09:06 BP 118/60 09/04/24 09:06 Pulse Ox 97 09/04/24 09:06 Oxygen Delivery Method Room Air 09/04/24 09:06 BMI result Body Mass Index 25.9 Const General: cooperative, healthy appearing and comfortable Nutritional Appearance: average body habitus Orientation/consciousness: patient oriented x3 Eyes Pupils: Equal, round and reactive pupils present Neuro General: patient oriented x3, gait normal, tone normal, moves all extremities and no focal motor deficits Cranial nerves: Yes Facial sensation intact/muscles of mastication intact, Yes Equal, round and reactive pupils present, Yes Bilaterally intact EOM present, Yes Nystagmus not present, Yes Normal facial strength present, Yes Midline tongue present, Yes Symmetric palate elevation present and Yes Ability to bilaterally elevate shoulders present Cognition (Neuro): normal cognition Gait exam (Neuro): Normal gait present Motor exam (neuro): 5/5 motor strength present throughout and Normal motor muscle tone present throughout Coordination: [id number] test normal Assessment & Plan Assessment & Plan (1) Restless legs syndrome (RLS): Code(s): G25.81 - Restless legs syndrome Category: Medical (2) Obstructive sleep apnea hypopnea, mild: Code(s): G47.33 - Obstructive sleep apnea (adult) (pediatric) Category: Medical Plan Continue CPAP . compliance stressed. Ropinirole XR 2mg q 4 pm and gabapentin 100mg qhs Coding Level of Care Code Est Pt Level 4 (02764) Complex EM visit Add On G2211 Diagnoses Restless legs syndrome (RLS) G25.81 Obstructive sleep apnea hypopnea, mild G47.33
[2024-09-04 09:06] VITALS: BP 118/60; PULSE 68; O2SAT 97; BMI 25.9
== END 2024-09-04 09:25 | disposition home or self-care (01) ==
PROVIDERS: PCP Internal Medicine; Visit Provider Psychiatry & Neurology Neurology
DX: G25.81 Restless legs syndrome (principal); G47.33 Obstructive sleep apnea (adult) (pediatric)
CPT/HCPCS: 99214; G2211

== ENCOUNTER → 2024-09-04 09:00 | Outpatient (BNVA) | payer MEDICARE, MEDICAID, SELFPAY | PROVIDERS: PCP Internal Medicine; Visit Provider Psychiatry & Neurology Neurology | DX: G47.33 Obstructive sleep apnea (adult) (pediatric) (principal); G25.81 Restless legs syndrome | CPT/HCPCS: 99212 ==

== ENCOUNTER 2024-09-11 08:06 | Outpatient (REF) | payer MEDICARE, MEDICAID, SELFPAY ==
[2024-09-11 08:15] LABS: MANUAL DIFF FLAG NO
[2024-09-11 08:41] LABS: Basophils Percent Auto 0.9 % (0-2); Eosinophils Absolute Auto 0.1 X10*3/uL (0.0-0.4); Eosinophils Percent Auto 1.5 % (0-4); Hematocrit 38.4 % (37.0-47.0); Hemoglobin 12.1 g/dl (12.0-16.0); Imm Gran Abs Auto 0.01 X10*3/uL (0.00-0.03); Imm Gran Pct Auto 0.2 % (0.0-0.4); Lymphocytes Absolute Auto 1.9 X10*3/uL (1.2-4.9); Lymphocytes Percent Auto 40.7 % (20-40); Mean Corpuscular HGB Conc 31.5 g/dl (31.0-35.0); Mean Corpuscular Hemoglobin 27.1 pg (27.0-33.0); Mean Corpuscular Volume 85.9 fL (80.0-98.0); Mean Platelet Volume 11.2 fL (9.4-12.3); Monocytes Absolute Auto 0.4 X10*3/uL (0.1-1.2); Monocytes Percent Auto 7.8 % (2-11); Neutrophils Absolute Auto 2.3 x10*3/uL (2.0-8.3); Neutrophils Percent Auto 48.9 % (45-73); Platelet Count 181 X10*3/uL (160-400); Red Blood Count 4.47 X10*6/uL (4.20-5.50); White Blood Count 4.6 X10*3/uL (4.8-10.8)
[2024-09-11 08:51] LABS: Albumin Level 4.1 g/dL (3.5-5.0); Calcium 9.6 mg/dL (8.4-10.2)
== END 2024-09-11 08:07 | disposition home or self-care (01) ==
LOC: HO.LAB 08:06
PROVIDERS: PCP Internal Medicine; Visit Provider Internal Medicine Endocrinology, Diabetes & Metabolism
DX: E05.90 Thyrotoxicosis, unspecified without thyrotoxic crisis or storm (principal); M81.0 Age-related osteoporosis without current pathological fracture
CPT/HCPCS: 36415; 82040; 82310; 85025

== ENCOUNTER 2024-09-18 11:03 | Outpatient (AMB) | payer MEDICARE, MEDICAID, SELFPAY ==
--- NOTE | 2024-09-18 11:05 | MHC.OFFVIS ---
Vital Signs 09/18/24 11:09 Height 5 ft 0.83 in Weight 139 lb 12.369 oz BMI 26.6 BP 110/58 L Blood Pressure Location Rt brachial Position Sitting Pulse 68 Pulse Source Pulse Oximeter Intake Visit Reasons: f/u toxic MNG and osteoporosis-conf Intake Note: Patient present today for toxic MNG and Osteoporosis follow up visit. Holistic Nutritionist Required: Yes Holistic Nutritionist Language: Habilitation Assistant Services: Holistic Nutritionist Offered & Declined Holistic Nutritionist Name: Daughter will interpret Accompanied by: Daughter Allergies No Known Allergies Allergy (Verified 09/18/24 11:11) Medication List - Last Reconciled 09/18/24 by Sarthak Reyes MD amlodipine 5 mg PO DAILY atorvastatin 20 mg PO DAILY benazepril 10 mg PO DAILY calcium carbonate (Oyster Shell Calcium 500) 500 mg PO DAILY 14 days cholecalciferol (vitamin D3) (Vitamin D3) 25 mcg PO DAILY denosumab (Prolia) 60 mg subcut [id number] gabapentin 100 mg PO BEDTIME latanoprost 0.005% 1 drp ophthalmic (eye) BEDTIME methimazole 2.5 mg (1/2 x 5 mg) PO DAILY ropinirole ER 2 mg PO .q 4pm HPI Comments Details: 83 YO F with 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 She was previously followed by Dr. Reyes from Endocrinology. She was last seen by him in 2006. She had a thyroid uptake and scan which revealed normal uptake, but in a heterogenous appearance in 2006. She had subclinical hyperthyroidism at that time. She subsequently had an US completed by Dr. Reyes 03/10/2007 which revealed no true nodules, only pseudonodules, so no biopsy was completed. She does report that after that time she saw an Industrial Recruiter in her home country of [facility] and did have a biopsy of the L lobe of the thyroid. She reports that this was benign. It is unclear which nodule was biopsied. She then had an US completed by her PCP here 09/14/19 which revealed multiple nodules bilaterally. There was mention of a L mid-upper pole 1.0 cm hypoechoic nodule, but the remainder were all subcentimeter. She was subsequently referred to Endocrinology. Images of this US were reviewed, and these nodules were felt to represent pseudonodules and not true nodules. No FNA biopsy was recommended. We did check full TFTs which revealed subclinical hyperthyroidism. She was started on Methimazole 2.5 mg PO daily given her age, and has tolerated treatment well without rash, frequent infection or jaundice. TSH has remained WNL. Her labs did reveal Calcium to be WNL but mild elevation of PTH. DEXA revealed severe Osteoporosis of the distal forearm, and Osteopenia at all other sites. 24 hour urine collection revealed very low calcium levels, indicating inadequate calcium intake. She was started on Calcium citrate 1 tab PO BID and remains on this now. PTH has now normalized. Denies any symptoms of hyper or hypothyroidism. Denies any family history of thyroid cancer. Denies any compressive symptoms currently. Thyroid US: 09/14/19 Right Thyroid Lobe: 5.9 x 2.1 x 2.1 cm, volume 13.6 mL. Previously 5.5 x 1.9 x 2.2 cm, volume 12.0 mL. Parenchyma: The gland echotexture is heterogeneous. Thyroid vascularity is increased. Left Thyroid Lobe: 5.4 x 1.4 x 2.4 cm, volume 9.5 mL. Previously 5.8 x 2.3 x 2.0 cm, volume 14.0 mL. Parenchyma: The gland echotexture is heterogeneous. Thyroid vascularity is increased. Isthmus: 1.0 cm in maximum AP dimension. Previously 1.1 cm. RIGHT THYROID LOBE: There are 3 nodules seen. 1. Location: Mid. Size: 1.1 x 0.7 x 0.9 cm. Previous: 0.8 x 0.9 x 0.8 cm. Nodule characteristics: Heterogeneous in echotexture and smoothly marginated. No calcification was present. There is intranodular vascular flow. 2. Location: Mid/lateral. Size: 0.7 x 0.6 x 0.6 cm. Previous: Not seen. Nodule characteristics: Heterogeneous and hyperechoic as with smooth margins. No calcifications identified. There is intranodular blood flow seen. 3. Location: Lower pole. Size: 1.6 x 1.4 x 1.3 cm. Previous: Not seen. Nodule characteristics: Heterogeneous in echotexture and smoothly marginated. Shadowing macrocalcification present. There is intranodular blood flow. ISTHMUS: 1. About the right superior isthmus there is a stable 0.6 x 0.4 x 0.7 cm hyperechoic and smoothly marginated nodule without calcification and with intranodular blood flow. Previously this measured 0.6 x 0.5 x 0.6 cm in size. 2. Location: Lower. Size: 1.1 x 0.7 x 0.9 cm. Previous: Not documented. Difficult to correlate on old study. Nodule characteristics: Heterogeneous in echotexture with smooth margins. No calcification seen. There is intranodular blood flow. 3. Location: Superior. Size: 1.1 x 0.7 x 0.8 cm. Previous: Not documented. Difficult to correlate on old study. Nodule characteristics: Heterogeneous in echotexture with smooth margins. Shadowing macrocalcification seen. There is intranodular blood flow. 4. Location: Lower. Size: 0.7 x 0.4 x 0.6 cm. Previous: Not documented. Difficult to correlate on old study. Nodule characteristics: Heterogeneous and hyperechoic with smooth margins. Shadowing macrocalcification seen. There is intranodular blood flow. LEFT THYROID LOBE: There are 2 nodules seen. 1. Location: Upper pole. Size: 0.7 x 0.3 x 0.7 cm. Previous: Not seen. Nodule characteristics: Heterogeneous in echotexture with smooth margins. No calcification is present. There is intranodular blood flow. 2. Location: Mid. Size: 0.6 x 0.5 x 0.5 cm. Previous: 0.8 x 0.5 x 0.6 cm. Nodule characteristics: Heterogeneous and hypoechoic in echotexture and partially cystic. Smooth margins. No calcification. There is intranodular blood flow present. NODES: No lymphadenopathy is seen in the tissue surrounding the thyroid gland. DEXA: 12/16/2022 FINDINGS: AP SPINE L1-L4: Current: BMD 0.982 g/cm2, Z-score 0.2, T-score -1.6, osteopenia, 5.0% decrease from baseline (<5% change is not significant). Baseline: BMD 1.034 g/cm2. LEFT FEMUR, NECK: Current: BMD 0.780 g/cm2, Z-score 0.4, T-score -1.9, osteopenia. Baseline: BMD 0.768 g/cm2. LEFT FEMUR, TOTAL: Current: BMD 0.873 g/cm2, Z-score 1.1, T-score -1.1, osteopenia, 0.8% decrease from baseline (<5% change is not significant). Baseline: BMD 0.880 g/cm2. RIGHT FOREARM RADIUS 33%: Current: BMD 0.654 g/cm2, Z-score 0.5, T-score -2.5, osteoporosis, 13.3% increase from baseline (<5% change is not significant). Baseline: BMD 0.577 g/cm2. Labs: Laboratory Tests 11/23/22 11/23/22 01/06/23 10:20 10:20 15:34 Sodium 138 139 Potassium 5.3 H 4.9 Creatinine 1.32 1.11 Estimated GFR 38 47 25-OH Vitamin D Total 46.5 TSH 1.17 Free T4 1.36 Total T3 115 PTH Intact 72 Calcium (PTH Intact) 9.4 currently on methimazole 2.5 mg q.d.. She received last Prolia injection on 03/30/2024. No fragility fx in past . On Prolia for [facility] yr [facility] Medical History (Updated 09/04/24 @ 09:19 by Cora Maradiaga MD) Obstructive sleep apnea hypopnea, mild Restless legs syndrome (RLS) Hypersomnia Snoring Acute hyponatremia Osteoporosis Hypertensive emergency On beta april at home Vitamin D deficiency Goiter Hyperparathyroidism Subclinical hyperthyroidism Effusion, left knee Renal impairment High cholesterol Hypertension Left knee pain Surgical History H/O colonoscopy History of esophagogastroduodenoscopy (EGD) Hx of cataract extraction Hx of hysterectomy Family History Father No problems noted. Mother No problems noted. Social History Household Members: None Household Members Other:: lives with her daughter Housing: House Do you presently have visiting nurse or other home services: No Alcohol intake: never Patient Tobacco Use Status: Never used Tobacco service: No Current occupational status: unemployed Physical Exam Const Other: Thyroid gland is normal size weighs about 15 g. There are no thyroid nodules palpated Assessment & Plan Assessment & Plan (1) Osteoporosis: Code(s): M81.0 - Age-related osteoporosis without current pathological fracture Category: Medical Plan: This 83-year-old female with a history of osteoporosis and CKD stage IIIB. She is currently on Prolia 60 mg q.6 months for the past year. Would continue Prolia, calcium and vitamin-D supplementation. Due for Prolia injection (2) Subclinical hyperthyroidism: Code(s): E05.90 - Thyrotoxicosis, unspecified without thyrotoxic crisis or storm Category: Medical Plan: Clinically and biochemically euthyroid on 2.5 mg of methimazole. After careful discussion with the patient and her daughter fear sign language interpreter guardian the options of treatment including continued use of methimazole, radioactive iodine and surgery, the patient daughter opting to stand the methimazole. She is currently biochemically and clinically euthyroid on 2.5 mg We will continue methimazole 2.5 mg Orders: Orders Calcium 6 Months M81.0 - Age-related osteoporosis without current pathological fracture Basic Metabolic Panel 6 Months M81.0 - Age-related osteoporosis without current pathological fracture Albumin Level 6 Months M81.0 - Age-related osteoporosis without current pathological fracture Medications: Refilled calcium carbonate (Oyster Shell Calcium 500) 500 mg PO DAILY 14 days 14 tabs 0RF Coding Level of Care Code Est Pt Level 3 (00992) Diagnoses Osteoporosis M81.0 Subclinical hyperthyroidism E05.90
[2024-09-18 11:09] VITALS: BP 110/58; PULSE 68; BMI 26.6
== END 2024-09-18 11:34 | disposition home or self-care (01) ==
LOC: HO.ENCR 11:04
PROVIDERS: Visit Provider Internal Medicine Endocrinology, Diabetes & Metabolism
DX: M81.0 Age-related osteoporosis without current pathological fracture (principal); E05.90 Thyrotoxicosis, unspecified without thyrotoxic crisis or storm
CPT/HCPCS: 99213

== ENCOUNTER → 2024-09-18 11:03 | Outpatient (BNVA) | payer MEDICARE, MEDICAID, SELFPAY | PROVIDERS: Visit Provider Internal Medicine Endocrinology, Diabetes & Metabolism | DX: M81.0 Age-related osteoporosis without current pathological fracture (principal); E05.90 Thyrotoxicosis, unspecified without thyrotoxic crisis or storm | CPT/HCPCS: 96372; 99212; J0897 ==

== ENCOUNTER 2024-11-26 10:42 | Outpatient (REF) | payer MEDICARE, MEDICAID, SELFPAY ==
--- NOTE | ~2024-11-26 | MR_ITS ---
EXAMINATION: MR BRAIN WITHOUT IV CONTRAST HISTORY: memory impairment/dizziness TECHNIQUE: Sagittal T1, coronal FLAIR, and axial T1, FLAIR, T2, gradient echo, and diffusion weighted MR images of the brain were obtained. COMPARISON: Correlation is made with an unenhanced head CT dated 07/19/2023. FINDINGS: The brain parenchyma is unremarkable, demonstrating normal khanna/white differentiation. No foci of abnormal signal intensity are identified. The ventricular system is normal in size and configuration. There is no mass effect or midline shift. No intra or extra-axial fluid collections are identified. There are no foci of restricted diffusion. Normal vascular flow voids are noted in the basilar and carotid arteries. The visualized paranasal sinuses are clear. MR/MR head/brain wo con IMPRESSION: Unremarkable MRI of the brain without contrast. Electronically signed by: Sarthak Austin MD 11/28/2024 09:32 AM LISS
--- OUTSIDE RECORDS SUMMARY | 2024-11-26 10:50 | XMS_ITS ---
Author Name [facility] Organization Unknown Results Test Name/Text Value Interpretation Date Range Source DIFFERENTIAL TYPE AUTOD Normal [id number] [facility] NEUTROPHILS NFR BLD AUTO 74.3% Above high normal [id number] 44 - 74 [facility] BASOPHILS NFR BLD AUTO 0.4% Normal [id number] 0 - 2 [facility] MONOCYTES NFR BLD AUTO 9.5% Normal [id number] 2 - 12 [facility] MONOCYTES NO. BLD AUTO 0.9K/uL Above high normal [id number] 0 - 0.8 [facility] EOSINOPHIL NO. BLD AUTO 0.1K/uL Normal [id number] 0 - 0.5 [facility] BASOPHILS IN BLOOD BY AUTOMATED COUNT 0K/uL Normal [id number] 0 - 0.2 [facility] WBC NO. BLD AUTO 7.8K/uL Normal [id number] 4 - 10.5 [facility] EOSINOPHIL NFR BLD AUTO 0.8% Normal [id number] 0 - 6 [facility] LYMPHOCYTES NFR BLD AUTO 15% Below low normal [id number] 20 - 48 [facility] NEUTROPHILS NO. BLD AUTO 7.1K/uL Normal [id number] 1.8 - 7.8 [facility] LYMPHOCYTES NO. BLD AUTO 1.4K/uL Normal [id number] 1 - 3.2 [facility] HCT VFR BLD AUTO 35.4% Below low normal [id number] 37 - 47 [facility] RDW RBC AUTO RTO 15.3% Normal [id number] 12.1 - 16. 2 [facility] RBC NO. BLD AUTO 4.08M/uL Below low normal [id number] 4.2 - 5.4 [facility] MCH RBC QN AUTO 28.2pg Normal [id number] 25 - 33 C [facility] MCHC RBC AUTO MCNC 32.6g/dL Normal [id number] 32 - 36 [facility] HGB BLD MCNC 11.5g/dL Below low normal [id number] 12.5 - 16 [facility] MCV RBC AUTO 86.7fL Normal [id number] 78 - 100 [facility] CREAT SERPL MCNC 1.4mg/dL Above high normal [id number] 0. 5 - 1 [facility] SODIUM SERPL SCNC 134mmol/L Below low normal [id number] 5 - 145 [facility] GLUCOSE SERPL MCNC 104mg/dL Normal [id number] 70 - 199 [facility] Glomerular filtration rate/1.73 sq M. predicted 37 Below low normal [id number] 60 - [facility] CHLORIDE SERPL SCNC 103mmol/L Normal [id number] 98 - 10 7 [facility] HCO3 SER SCNC 21mmol/L Below low normal [id number] 24 - 3 2 [facility] POTASSIUM SERPL SCNC 5.5mmol/L Above high normal [id number] 7 3.5 - 5.1 [facility] ANION GAP SERPL SCNC 10mmol/L Normal [id number] 5 - 14 [facility] BUN SERPL MCNC 33mg/dL Above high normal [id number] 7 - 17 [facility] CALCIUM SERPL MCNC 9.2mg/dL Normal [id number] 8.4 - 10 .2 [facility] MAGNESIUM SERPL MCNC 2.1mg/dL Normal [id number] 1.7 - 2.8 [facility] Troponin I SerPl HS-mCnc 5ng/L Normal [id number] 0 - 14 [facility]
== END 2024-11-26 10:43 | disposition home or self-care (01) ==
LOC: HO.MRI 10:42
PROVIDERS: PCP Internal Medicine; Visit Provider Internal Medicine
DX: R41.840 Attention and concentration deficit (principal)
CPT/HCPCS: 70551

== ENCOUNTER → 2024-11-26 10:42 | Outpatient (BNV) | payer MEDICARE, MEDICAID, SELFPAY | PROVIDERS: PCP Internal Medicine; Visit Provider Radiology Diagnostic Radiology | DX: R41.840 Attention and concentration deficit (principal) | CPT/HCPCS: 70551 ==

== ENCOUNTER 2024-12-25 10:26 | Outpatient (REF) | payer MEDICARE, MEDICAID, SELFPAY ==
--- OUTSIDE RECORDS SUMMARY | 2024-12-25 11:22 | XMS_ITS | Encounter Summary ---
Author Organization [employer] Address [address] [place] [address] Care Team Providers Care Tractor Sweeper Operator Name Role Phone Evi Thomson MD Primary Care Provider + Valerio Sweet PharmD Unavailable [phone] Reason for Visit * Reason Comments Med Refill Encounter Details Date Type Department Care Team (Late st Contact Info) Description 08/12/2024 Refill [facility] MED[facility] [address] [place], [place] [phone] Evi Thomson MD [address] [place], [place] [phone] Allergic rhinitis due to other allergic trigger, unspecified seasonality Social History Tobacco Use Types Packs/Day Years Used Date Smoking Tobacco: Former Cigarettes Passive Smoke Exposure: Past Smokeless Tobacco: Never Alcohol Use Standard Drinks/Week Comments Not Currently 0 (1 standard drink = 0.6 oz pur e alcohol) PHQ-2 Answer Date Recorded Patient Health Questionnaire-2 Score 0 05/06/2023 Housing Stability Answer Date Recorded What is your housing situation today? I have isidra high 05/24/[address] you li ve. Do you have problems with any of the following? None of the above 05/24/2024 Food Insecurity Answer Date Recorded Within the past 12 months, y ou worried that your food would run out before you got money to buy more: Never True 05/24/2024 Within the past 12 months,th e food you bought just didn't last and you didn't have enough money to get more: Never True 08/2024 Transportation Answer Date Recorded In the past 12 months, has l ack of transportation kept you from medical appts, meetings, work or from getting things needed for daily living? No 05/24/2024 Utilities Answer Date Recorded In the past 12 months, has t he electric, gas, oil or water company threatened to shut off services in your home? No 05/24/2024 Depression Answer Date Recorded Patient Health Questionnaire-2 Score 0 05/24/2024 Internet Access Answer Date Recorded Internet Access Q1 Yes 08/14/2024 Internet Access Q2 I do not want or need it 07/18 Comments No Sex and Gender Information Value Date Recorded Sex Assigned at Female 09/14/2022 10:16 AM EDT Legal Sex Female 10:16 AM EDT Gender Identity Female 09/14/2022 10:16 AM EDT Sexual Orientation Straight 09/14/2022 10 :16 AM EDT documented as of this encounter Plan of Treatment Upcoming Encounters Date Type Department Care Team (Late st Contact Info) Description 02/12/2025 10:00 AM EDT Office Visit [facility] [address] [place], [place] [phone] Aria Chris, OD [address] [place] [address] documented as of this encounter Goals Goal Patient Goal Type Associated Problems Recent Progress Patient-Stated? Author Blood Pressure < 140/90 Blood Pressure 130/66( 025 9:46 AM EST) No Valerio Sweet PharmD documented as of this encounter Visit Diagnoses Diagnosis Allergic rhinitis due to other allergic trigger, unspecified seasonality documented in this encounter Care Teams Tractor Sweeper Operator Relationship Specialty Start Date End Date Evi Thomson MD [address] [place] [address] PCP - General Family Medicine 03/13/19 Valerio Sweet, Karl [address] [place] [address] Pharmacist Internal Medicine 11/02/22 documented as of this encounter
--- OUTSIDE RECORDS SUMMARY | 2024-12-25 11:22 | XMS_ITS | Encounter Summary ---
Author Organization [employer] Address [address] [facility] [address] [place] [address] Care Team Providers Care Supervisor Pumping Station Name Role Phone Evi Thomson MD Primary Care Provider + Valerio Sweet PharmD Unavailable [phone] Encounter Details Date Type Department Care Team (Late st Contact Info) Description 08/10/2024 Telephone [facility] MEDICINE [address] [place], [place] [phone] Evi Thomson MD [address] [place], [place] [phone] Social History Tobacco Use Types Packs/Day Years [...] Description 02/12/2025 10:00 AM EDT Office Visit [facility] OPTOM[facility] [address] [place] [address] Aria Chris, OD [address] [place] [address] documented as of this encounter Goals Goal Patient Goal Type Associated Problems Recent Progress Patient-Stated? Author Blood Pressure < 140/90 Blood Pressure 130/66( 025 9:46 AM EST) No Valerio Sweet PharmD documented as of this encounter Visit Diagnoses Not on filedocumented in this encounter Care Teams Supervisor Pumping Station Relationship Specialty Start Date End Date Evi Thomson MD [address] [place] [address] PCP - General Family Medicine 03/13/19 Valerio Sweet PharmD [address] [place], [place] [phone] Pharmacist Internal Medicine 11/02/22 documented as of this encounter
--- OUTSIDE RECORDS SUMMARY | 2024-12-25 11:22 | XMS_ITS | Encounter Summary ---
Author Organization [employer] Address [address] [facility] [address] [place] [address] Care Team Providers Care Automobile Service Writer Name Role Phone Evi Thomson MD Primary Care Provider + Valerio Sweet PharmD Unavailable [phone] Reason for Visit * Reason Comments Pre-op Exam Encounter Details Date Type Department Care Team (Latest Contact Info) Description 12/25/2024 9:30 AM EST Office Visit [facility] [address] [place], [place] [phone] Duyen Schwab MD [address] [place], [place] [phone] Primary hypertension (Primary Dx); Prediabetes; Preop cardiovascular exam Social History Tobacco Use Types Packs/Day Years [...] AM EDT documented as of this encounter Last Filed Vital Signs Vital Sign Reading Time Taken Comments Blood Pressure 130/66 12/25/2024 9:46 AM EST Pulse 66 12/25/2024 9:46 AM EST Temperature 36.3 ??C (97.3 ??F) 12/25/2024 9:46 AM ES T Respiratory Rate 14 12/25/2024 9:46 AM EST Oxygen Saturation 96% 12/25/2024 9:46 AM EST Inhaled Oxygen Concentration - - Weight 64.4 kg (142 lb) 12/25/2024 9:46 AM EST Height 149.9 cm (4' 11 ) 12/25/2024 9:46 AM EST Body Mass Index 28.68 12/25/2024 9:46 AM EST documented in this encounter Progress Notes * Duyen Schwab MD - 12/25/2024 9:30 AM EST Subjective Patient ID: Linda Nolen is a 83 y.o. female who presents for Pre- op Exam. Hypertension This is a chronic problem. The problem is unchanged. The problem is controlled. Pertinent negativesinclude no chest pain, headaches, neck pain, palpitations or shortness of breath. Risk factors for coronary artery disease include sedentary lifestyle. The current treatment provides significant improvement. There are no compliance problems. Review of Systems Constitutional: Negative. Respiratory: Negative. Negative for shortness of breath. Cardiovascular: Negative for chest pain and palpitations. Gastrointestinal: Negative. Genitourinary: Negative. Musculoskeletal: Negative for neck pain. Neurological: Negative for headaches. Objective Physical Exam Constitutional: Appearance: Normal appearance. Cardiovascular: Rate and Rhythm: Normal rate and regular rhythm. Pulses: Normal pulses. Heart sounds: Normal heart sounds. Pulmonary: Effort: Pulmonary effort is normal. Abdominal: General: Abdomen is flat. Neurological: Mental Status: She is alert. Assessment/Plan Diagnoses and all orders for this visit: Primary hypertension Comments: Well controlled No changes in meds Maintain a low-sodium diet (less than 2 grams per day). Maintain a regular cardiovascular exercise program. Advised to maintain a low-fat, low-cholesterol diet. Counseled regarding importance of weight loss. Counseled re: potential co-morbidities including cardiovascular disease. Orders: - Basic Metabolic Panel; Future - CBC auto differential; Future - Lipid Panel, Standard; Future Prediabetes Comments: Stable No meds for now Advised to cont low fat low carb diet Advised Low sugar and Low carb diet. Counseled regarding self-monitoring of blood glucose. Counseled re: potential co-morbidities including cardiovascular disease. Orders: - POCT A1C - POCT glucose manually resulted - Basic Metabolic Panel; Future - CBC auto differential; Future - Lipid Panel, Standard; Future - Hepatic Function Panel; Future Preop cardiovascular exam Comments: Pt is at low risk for surgery EKG normal Labs ordered Orders: - CBC auto differential; Future documented in this encounter Plan of Treatment Upcoming Encounters Date Type Department Care Team (Late st Contact Info) Description 02/12/2025 10:00 AM EDT Office Visit [facility] OPT[facility] [address] [place] [address] Aries, Aria, OD [address] [place] [address] Scheduled Orders Name Type Priority Associated Diagnoses Orde r Schedule Basic Metabolic Panel Lab Routine Prediabetes Primary hypertension Expected: 12/25/2024 (Approximate), Expires: 12/25/2025 CBC auto differential Lab Routine Prediabetes Primary hypertension Preop cardiovascular exam Expected: 12/25/2024 (Approximate), Expires: 12/25/2025 Lipid Panel, Standard Lab Routine Prediabetes Primary hypertension Expected: 12/25/2024 (Approximate), Expires: 12/25/2025 Hepatic Function Panel Lab Routine Prediabetes Expected: 12/25/2024 (Approximate), Expires: 12/25/2025 documented as of this encounter Goals Goal Patient Goal Type Associated Problems Recent Progress Patient-Stated? Author Blood Pressure < 140/90 Blood Pressure 130/66( 025 9:46 AM EST) No Valerio Sweet, NickiD documented as of this encounter Procedures Procedure Name Priority Date/Time Associated Diagnosis Comments POCT GLUCOSE Routine 12/25/2024 10:19 AM EST Prediabetes POCT GLYCATED HEMOGLOBIN, TOTAL Routine 12/25/2024 10:18 AM EST Prediabetes ECG 12-LEAD Routine 12/25/2024 10:08 AM EST Primary hypertension Preop cardiovascular exam documented in this encounter Results * (ABNORMAL) POCT glucose manually resulted (12/25/2024 10:19 AM EST) Glucose Blood, POC 163 60 - 200 mg/dL QC Media Lot # Comment:[id number] Lot# Expiration Date Comment:02/20/2025 Blood Capillary blood specimen / Unknown 12/25/2024 10:19 AM EST us Duyen Schwab MD POINT OF CARE TEST ENTER/EDIT OR DERABLES Final Result * (ABNORMAL) POCT A1C (12/25/2024 10:18 AM EST) Hemoglobin A1C 5.8 4.0 - 6.0 % QC Media Lot # Comment:[id number] Lot# Expiration Date Comment:09/01/2026 Blood 12/25/2024 10:1 8 AM EST us Duyen Schwab MD POINT OF CARE TEST ENTER/EDIT OR DERABLES Final Result * ECG 12 lead (12/25/2024 10:08 AM EST) Duyen Powers MD - 12/25/2024 10:08 AM EST NSR No acute process Duyen Schwab MD ECG ORDERABLES Final Result documented in this encounter Visit Diagnoses Diagnosis Primary hypertension- Primary Unspecified essential hypertension Prediabetes Other abnormal glucose Preop cardiovascular exam Pre-operative cardiovascular examination documented in this encounter Care Teams Automobile Service Writer Relationship Specialty Start Date End Date Evi Thomson MD [address] [place] [address] PCP - General Family Medicine 03/13/19 Valerio Sweet, NickiD [address] [place] [address] Pharmacist Internal Medicine 11/02/22 documented as of this encounter
--- OUTSIDE RECORDS SUMMARY | 2024-12-25 11:22 | XMS_ITS | Encounter Summary ---
Author Organization [employer] Address [address] [facility] [address] [place] [address] Care Team Providers Care Glost Kiln Placer Name Role Phone Evi Thomson MD Primary Care Provider + Valerio Sweet PharmD Unavailable [phone] Reason for Visit * Reason Comments Med Refill Encounter Details Date Type Department Care Team (Late st Contact Info) Description 04/12/2024 Refill [facility] MEDICINE [address] [place], [place] [phone] Evi Thomson MD [address] [place], [place] [phone] Postherpetic neuralgia Social History Tobacco Use Types Packs/Day Years Used Date Smoking Tobacco: Former Cigarettes Passive Smoke Exposure: Past Smokeless Tobacco: Never Alcohol Use Standard Drinks/Week Comments Not Currently 0 (1 standard drink = 0.6 oz pur e alcohol) PHQ-2 Answer Date Recorded Patient Health Questionnaire-2 Score 0 05/06/2023 Housing Stability Answer Date Recorded What is your housing situation today? I have isidradyllan high 09/01/[address] you li ve. Do you have problems with any of the following? None of the above 09/01/2023 Food Insecurity Answer Date Recorded Within the past 12 months, y ou worried that your food would run out before you got money to buy more: Never True 09/01/2023 Within the past 12 months,th e food you bought just didn't last and you didn't have enough money to get more: Never True Transportation Answer Date Recorded In the past 12 months, has l ack of transportation kept you from medical appts, meetings, work or from getting things needed for daily living? No 09/01/2023 Utilities Answer Date Recorded In the past 12 months, has t he electric, gas, oil or water company threatened to shut off services in your home? No 09/01/2023 Depression Answer Date Recorded Patient Health Questionnaire-2 Score 0 05/06/2023 Comments No Sex and Gender Information Value [...] Description 02/12/2025 10:00 AM EDT Office Visit [facility] OPTOMETRY [address] [place] [address] Aria Chris, OD [address] [place] [address] documented as of this encounter Goals Goal Patient Goal Type Associated Problems Recent Progress Patient-Stated? Author Blood Pressure < 140/90 Blood Pressure 130/66( 025 9:46 AM EST) No Valerio Sweet, PharmMckenna documented as of this encounter Visit Diagnoses Diagnosis Postherpetic neuralgia Herpes zoster with other nervous system complications documented in this encounter Care Teams Glost Kiln Placer Relationship Specialty Start Date End Date Evi Thomson MD [address] [place] [address] PCP - General Family Medicine 03/13/19 Valerio Sweet, NickiD [address] [place] [address] Pharmacist Internal Medicine 11/02/22 documented as of this encounter
--- OUTSIDE RECORDS SUMMARY | 2024-12-25 11:22 | XMS_ITS | Encounter Summary ---
Author Organization [employer] Address [address] [facility] [address] [place] [address] Care Team Providers Care Massotherapist Name Role Phone Evi Thomson MD Primary Care Provider + Valerio Sweet PharmD Unavailable [phone] Reason for Visit * Reason Onset Date Comments telephone call 12/22/2024 Encounter Details Date Type Department Care Team (Late st Contact Info) Description 12/22/2024 Telephone [facility] MEDICINE [address] [place] [address] Evi Thomson MD [address] [place], [place] [phone] telephone call Social History Tobacco Use Types Packs/Day Years Used Date Smoking Tobacco: Former Cigarettes Passive Smoke Exposure: Past Smokeless Tobacco: Never Alcohol Use Standard Drinks/Week Comments Not Currently 0 (1 standard drink = 0.6 oz pur e alcohol) PHQ-2 Answer Date Recorded Patient Health Questionnaire-2 Score 0 05/06/2023 Housing Stability Answer Date Recorded What is your housing situation today? I have isidra sing 05/24/[address] you li [...] AM EDT documented as of this encounter Miscellaneous Notes * Telephone Encounter - Shiloh Sweet - 12/22/2024 1:08 PM EST Called pt daughter to rs appt from 12/22/24 pre-op we rs appt for 12/25/24 I informed them the appt will be in psychiatric , pt daughter said she didn't know they had a appt today but she will be there. documented in this encounter Plan of Treatment Upcoming Encounters Date Type Department Care Team (Late st Contact Info) Description 02/12/2025 10:00 AM EDT Office Visit [facility] OPTOMETRY [address] [place] [address] Aria Chris, OD [address] [place] [address] documented as of this encounter Goals Goal Patient Goal Type Associated Problems Recent Progress Patient-Stated? Author Blood Pressure < 140/90 Blood Pressure 130/66( 025 9:46 AM EST) Valerio Martins, PharmD documented as of this encounter Visit Diagnoses Not on filedocumented in this encounter Care Teams Massotherapist Relationship Specialty Start Date End Date Evi Thomson MD [address] [place] [address] PCP - General Family Medicine 03/13/19 Valerio Sweet, NickiD [address] [place] [address] Pharmacist Internal Medicine 11/02/22 documented as of this encounter
--- OUTSIDE RECORDS SUMMARY | 2024-12-25 11:22 | XMS_ITS | Encounter Summary ---
Author Organization [employer] Address [address] [facility] [address] [place] [address] Care Team Providers Care Horticultural Technical Officer Name Role Phone Evi Thomson MD Primary Care Provider + Valerio Sweet PharmD Unavailable [phone] Reason for Visit * Reason Comments Med Refill Encounter Details Date Type Department Care Team (Late st Contact Info) Description 05/14/2024 Refill [facility] MEDICINE [address] [place] [address] Amrita Alfred FNP [address] [place], [place] [phone] Social History Tobacco Use Types Packs/Day Years [...] Description 02/12/2025 10:00 AM EDT Office Visit [facility] OPTOMETRY [address] [place] [address] AriesAria collado, OD [address] [place] [address] documented as of this encounter Goals Goal Patient Goal Type Associated Problems Recent Progress Patient-Stated? Author Blood Pressure < 140/90 Blood Pressure 130/66( 025 9:46 AM EST) No Valerio Sweet, Karl documented as of this encounter Visit Diagnoses Not on filedocumented in this encounter Care Teams Horticultural Technical Officer Relationship Specialty Start Date End Date Evi Thomson MD [address] [place] [address] PCP - General Family Medicine 03/13/19 Valerio Sweet, PharmD [address] [place], [place] [phone] Pharmacist Internal Medicine 11/02/22 documented as of this encounter
--- OUTSIDE RECORDS SUMMARY | 2024-12-25 11:22 | XMS_ITS | Clinical Summary ---
Author Organization [facility] Address [address] [place] [phone] Phone Care Team Providers Care Third Shift Lieutenant Name Role Phone Evi Thomson MD Primary Care Provider [phone] Allergies No known active allergies Medications atorvastatin (LIPITOR) 20 MG tablet Take 1 tablet by mouth 1 (one) time each day Active fluticasone (FLONASE) 50 MCG/ACT nasal spray Administer 1 spray into each nostril 1 (one) time each day Active gabapentin (NEURONTIN) 300 MG capsule Take 300 mg by mouth at bed time 1 Active methIMAzole (TAPAZOLE) 5 MG tablet Take 2.5 mg by mouth 1 (one) time each day 1 Active Prolia 60 MG/ML solution prefilled syringe 3 Active amLODIPine (NORVASC) 5 MG tablet TOME LACEY TABLETA TODOS LOS D 3 Active benazepril (LOTENSIN) 10 MG tablet TOME LACEY Y MEDIA TABLETAS TODOS LOS D POR V A ORAL 3 Active acetaminophen (TYLENOL 8 HOUR) 650 MG 8 hr tablet PLEASE SEE ATTACHED FOR DETAILED DIRECTIONS 3 Active Cholecalciferol (Vitamin D-3) 25 MCG (1000 UT) capsule Take by mouth Acti ve rOPINIRole XL (REQUIP XL) 2 MG 24 hr tablet Take 2 mg by mouth every night Active Active Problems Problem Noted Date Diagnosed Date Stage 3b chronic kidney disease 05/21/2022 Renal osteodystrophy 05/21/2022 Chronic kidney disease due to hypertension 02/03 Hypertensive chronic kidney disease 02/03/2021 Chronic kidney disease 01/27/2021 Essential hypertension 01/27/2021 Hyperlipidemia 01/27/2021 Stage 3a chronic kidney disease 01/27/2021 Resolved Problems Problem Noted Date Diagnosed Date Resolved Date Chronic kidney disease stage 4 01/27/2021 02/03/2021 Encounters Date Type Department Care Team Description 11/13/2024 2:45 PM EST Office Visit [facility] [address] [place] [phone] Rikki Pratt MD Stage 3b chronic kidney disease (HCC) (Primary Dx); Renal osteodystrophy; Hypertensive chronic kidney disease from Last 3 Months Family History Medical History Relation Comments Cancer Mother colon Relation Status Comments Father Mother Social History Tobacco Use Types Packs/Day Years Used Date Smoking Tobacco: Former Cigarettes Q uit: 07/31/1999 Smokeless Tobacco: Former Comments:Smoking History Inf o:Every day Alcohol Use Standard Drinks/Week Comments No 0 (1 standard drink = 0.6 oz pur e alcohol) Comments Unknown Sex and Gender Information Value Date Recorded Sex Assigned at Not on file Legal Sex Female 4:39 PM EST Gender Identity Not on file Sexual Orientation Not on file Last Filed Vital Signs Vital Sign Reading Time Taken Comments Blood Pressure 120/72 11/13/2024 2:32 PM EST Pulse 69 05/09/2024 1:15 PM EDT Temperature - - Respiratory Rate - - Oxygen Saturation 97% 05/09/2024 1:15 PM EDT Inhaled Oxygen Concentration - - Weight 64.7 kg (142 lb 9.6 oz) 11/13/2024 2:32 P M EST Height 152.4 cm (5') 09/04/2019 12:00 PM EDT Body Mass Index 27.85 09/04/2019 12:00 PM EDT Plan of Treatment Upcoming Encounters Date Type Department Care Team (Late st Contact Info) Description 07/19/2025 3:15 PM EDT Office [facility] [address] [place] [address] Rikki Pratt MD [address] [facility] [address] [place] [address] Health Maintenance Due Date Last Done Comments Influenza Vaccine (#1) 2024 , 08/24/2019 Pneumococcal Vaccine: 65+ Years Completed 04/04/2024 Hepatitis B Vaccine Aged Out No longe r eligible based on patient's age to complete this topic [place] Care Teams Third Shift Lieutenant Relationship Specialty Start Date End Date Evi Thomson MD [address] [place] [address] PCP - General 11/25/20
--- OUTSIDE RECORDS SUMMARY | 2024-12-25 11:22 | XMS_ITS | Encounter Summary ---
Author Organization [employer] Address [address] [facility] 7t [place] [address] Care Team Providers Care Supervisor Stitching Department Name Role Phone Evi Thomson MD Primary Care Provider + Valerio Sweet PharmD Unavailable [phone] Encounter Details Date Type Department Care Team (Latest Contact Info) Description 12/25/2024 Travel Social History Tobacco Use Types Packs/Day Years [...] Description 02/12/2025 10:00 AM EDT Office Visit [facility] OPTOMETRY [address], [place] [phone] Aria Chris, OD [address] [place] [address] documented as of this encounter Goals Goal Patient Goal Type Associated Problems Recent Progress Patient-Stated? Author Blood Pressure < 140/90 Blood Pressure 130/66( 025 9:46 AM EST) No Valerio Sweet, Karl documented as of this encounter Visit Diagnoses Not on filedocumented in this encounter Care Teams Supervisor Stitching Department Relationship Specialty Start Date End Date Evi Thomson MD [address] [place] [address] PCP - General Family Medicine 03/13/19 Valerio Sweet, PharmD [address] [place] [address] Pharmacist Internal Medicine 11/02/22 documented as of this encounter
--- OUTSIDE RECORDS SUMMARY | 2024-12-25 11:22 | XMS_ITS | Encounter Summary ---
Author Organization [facility] Address [address] [facility] [address] [place] [address] Phone Care Team Providers Care Retail Merchandising Specialist Name Role Phone Evi Thomson MD Primary Care Provider [phone] Encounter Details Date Type Department Care Team (Late Contact Info) Description 02/11/2021 Orders Only [facility] [address] [place] [address] ProviderFuentes MD [address] [place] [id number] Social History Tobacco Use Types Packs/Day Years Used Date Smoking Tobacco: Former Cigarettes Q uit: 07/31/1999 Comments:Smoking History Inf o:Every day Alcohol Use Standard Drinks/Week Comments No 0 (1 standard drink = 0.6 oz pur e alcohol) Comments Unknown Sex and Gender Information Value Date Recorded Sex Assigned at Not on file Legal Sex Female 4:39 PM EST Gender Identity Not on file Sexual Orientation Not on file documented as of this encounter Plan of Treatment Upcoming Encounters Date Type Department Care Team (Late Contact Info) Description 07/19/2025 3:15 PM EDT Office Visit [facility] [address] [place] [address] [place] [phone] Rikki Pratt MD [address] [facility] [address] [place] [address] documented as of this encounter Procedures Procedure Name Priority Date/Time Associated Diagnosis Comments EXT RESULT ENTRY Routine 02/11/2021 documented in this encounter Results * EXT RESULT ENTRY (02/11/2021) us Historical Provider LAB BLOOD ORDERABLES Clara l Result documented in this encounter Visit Diagnoses Not on filedocumented in this encounter Care Teams Retail Merchandising Specialist Relationship Specialty Start Date End Date Evi Thomson MD [address] [place] [id number] PCP - General 11/25/20 documented as of this encounter
--- OUTSIDE RECORDS SUMMARY | 2024-12-25 11:22 | XMS_ITS | Encounter Summary ---
Author Organization [employer] Address [address] [facility] 7t [place] [address] Care Team Providers Care Planograph Operator Name Role Phone Evi Thomson MD Primary Care Provider + Valerio Sweet PharmD Unavailable [phone] Encounter Details Date Type Department Care Team (Late st Contact Info) Description 11/24/2022 Orders Only [facility] MEDICINE [address] [place], [place] [phone] Evi Thomson MD [address] [place], [place] [phone] Hyperkalemia (Primary Dx) Social History Tobacco Use Types Packs/Day Years Used Date Smoking Tobacco: Former Cigarettes Smokeless Tobacco: Never Alcohol Use Standard Drinks/Week Comments Not Currently 0 (1 standard drink = 0.6 oz pur e alcohol) Comments No Sex and Gender Information Value Date Recorded Sex Assigned at Female 09/14/2022 10:16 AM EDT Legal Sex Female 10:16 AM EDT Gender Identity Female 09/14/2022 10:16 AM EDT Sexual Orientation Straight 09/14/2022 10 :16 AM EDT COVID-19 Exposure Response Date Recorded In the last 10 days, have yo u been in contact with someone who was confirmed or suspected to have Coronavirus/COVID-19? No / Unsure 11/20/2022 12:59 PM EST documented as of this encounter Miscellaneous Notes * Result Encounter Note - Evi Thomson MD - 11/24/2022 11:16 PM EST Labs on 11/27 showed K 5.1, wnl. Please call patient and tell her to recheck in 1w. No more lokelma for now, remind re low K diet and tell her that I will call renal to discuss hyperkalemia. Please call renal and ask that communication and outreach manager calls me back to discuss hyperkalemia and possibility of lokelma or changing meds documented in this encounter Plan of Treatment Upcoming Encounters Date Type Department Care Team (Late st Contact Info) Description 02/12/2025 10:00 AM EDT Office Visit [facility] OPTOMETRY [address] [place], [place] [phone] AriesAria collado, OD [address] [place] [address] documented as of this encounter Procedures Procedure Name Priority Date/Time Associated Diagnosis Comments POTASSIUM Routine 11/27/2022 8:47 AM EST Hyperkalemia documented in this encounter Results * Potassium (11/27/2022 8:47 AM EST) Potassium 5.1 3.5 - 5.3 mmol/L [employer] [place] [employer] [facility] Blood Venous blood specimen / Unknown 11/27/2022 8:47 AM EST 11/27/2022 8:48 AM EST Narrative [facility] - 11/27/2022 8:46 PM EST FASTING:YES FASTING: YES us Evi Thomson MD LAB BLOOD ORDERABLES Fin al Result [facility] [address] [facility], [facility], [place] [address] [employer] [place] [facility] [address] [facility], ([address]) [place] [address] documented in this encounter Visit Diagnoses Diagnosis Hyperkalemia- Primary Hyperpotassemia documented in this encounter Care Teams Planograph Operator Relationship Specialty Start Date End Date Evi Thomson MD [address] [place] [address] PCP - General Family Medicine 03/13/19 Valerio Sweet, NickiD [address] [place] [address] Pharmacist Internal Medicine 11/02/22 documented as of this encounter
--- OUTSIDE RECORDS SUMMARY | 2024-12-25 11:22 | XMS_ITS | Encounter Summary ---
Author Organization [employer] Address [address] [facility] 7[address] [place] [address] Care Team Providers Care Store Promoter Name Role Phone Evi Thomson MD Primary Care Provider + Valerio Sweet PharmD Unavailable [phone] Reason for Visit * Reason Comments Med Refill Encounter Details Date Type Department Care Team (Late st Contact Info) Description 07/05/2024 Refill [facility] MED[facility]INE [address] [place], [place] [phone] Evi Thomson MD [address] [place], [place] [phone] Allergic rhinitis due to other allergic trigger, [...] Recorded Patient Health Questionnaire-2 Score 0 05/24/2024 Comments No Sex and Gender Information Value [...] Description 02/12/2025 10:00 AM EDT Office Visit [facility] OPTOMETRY [address] [place], [place] [phone] Aria Chris, OD [address] [place] [address] documented as of this encounter Goals Goal Patient Goal Type Associated Problems Recent Progress Patient-Stated? Author Blood Pressure < 140/90 Blood Pressure 130/66( 025 9:46 AM EST) No Valerio Sweet, Karl documented as of this encounter Visit Diagnoses Diagnosis Allergic rhinitis due to other allergic trigger, unspecified seasonality documented in this encounter Care Teams Store Promoter Relationship Specialty Start Date End Date Evi Thomson MD [address] [place] [phone] PCP - General Family Medicine 03/13/19 Valerio Sweet, Karl [address] [place] [phone] Pharmacist Internal Medicine 11/02/22 documented as of this encounter
--- OUTSIDE RECORDS SUMMARY | 2024-12-25 11:22 | XMS_ITS | Clinical Summary ---
Author Organization [employer] Address [address] [facility] 7[address] [place] [address] Care Team Providers Care Internal Controls Manager Name Role Phone Evi Thomson MD Primary Care Provider + Valerio Sweet PharmD Unavailable [phone] Allergies No known active allergies Medications methIMAzole (Tapazole) 5 MG tablet Take 0.5 tablets by mouth 1 (one) time each day. Active Elastic Bandages & Supports (B & B Knee Brace/Supports) [facility] [place] 020 Active Blood Pressure Monitoring (Omron 3 Series BP Monitor) device USE DAILY DIRECTED 022 Active latanoprost (Xalatan) 0.005 % ophthalmic solution Use as directed 023 Active Prolia 60 MG/ML solution prefilled syringe Inject 60mg subcutaneously every 6 months as directed 023 Active Lidocaine 5 % creamIndications:Posthe rpetic neuralgia Apply 1 inch topically 2 times daily. 90 g 1 023 Active glucose blood test stripIndications:Predia betes Use as instructed 100 each 12 023 Active D3-1000 25 MCG (1000 UT) capsule TOME 1 C PSULA (25 MCG) ORALLY DAILY FOR 30 DAYS 023 Active ketorolac (Acular) 0.5 % ophthalmic solution INSTILL 1 DROP INTO LEFT EYE FOUR TIMES A DAY FOR 2 DAYS AFTER LASER THEN STOP 023 Active rOPINIRole XL (Requip XL) 2 MG 24 hr tablet Take 2 mg by mouth at bedtime. 024 Active gabapentin (Neurontin) 100 MG capsule Take 100 mg by mouth at bedtime. 024 Active acetaminophen (Tylenol 8 Hour) 650 MG ER tabletIndications:Lumbo sacral radiculopathy TAKE 1-2 TABLETS BY MOUTH EVERY 8-12 HOURS NEEDED. SWALLOW WHOLE WITH WATER (MAX 3600MG/D). DO NOT BREAK, CRUSH, DISSOLVE AND/OR CHEW. 120 tablet 6 024 Active amLODIPine (Norvasc) 5 MG tabletIndications:Benig n hypertension TAKE 1 TABLET BY MOUTH EVERY DAY 90 tablet 1 024 Active benazepril (Lotensin) 10 MG tabletIndications:Hyper tension, unspecified type TAKE 1 TABLET BY MOUTH EVERY MORNING 90 tablet 1 024 Active atorvastatin (Lipitor) 20 MG tabletIndications:Pure hypercholesterolemia TAKE 1 TABLET BY MOUTH EVERY MORNING 90 tablet 2 024 Active fluticasone (Flonase) 50 MCG/ACT nasal sprayIndications:Allerg ic rhinitis due to other allergic trigger, unspecified seasonality ADMINISTER 1 SPRAY INTO EACH NOSTRIL ONCE PER DAY. 48 mL 1 024 Active Active Problems Problem Noted Date Diagnosed Date Restless leg syndrome 05/24/2024 Assessment & Plan (05/24/2024 12:26 PM EDT): - pt recently started on Ropinirole and Gabapentin, doing well - will f/u with sleep specialist with sleep study results Varicose veins of both lower extremities with pa in 05/24/2024 Assessment & Plan (05/24/2024 12:31 PM EDT): - recommended use of compression stockings Lumbosacral radiculopathy 05/24/2024 Assessment & Plan (05/24/2024 12:41 PM EDT): - pt is doing well but we dicussed about avoiding lifting heavy objects and precaution about falls. 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 Continue adult day program to increase social interaction. Assessment & Plan (05/24/2024 12:45 PM EDT): - could be related age versus decreased hearing - discussed with pt and her daughter importance of increasing physical activity especially outside of the house (pt is enrolled in some community programs and could be [facility]) - will f/u next visit to see if she needs a new hearing test - will evaluate MSE next visit, CT scan and most recent labs are within normal limits. 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 Continue daily vit D, check Vit D levels and adjust meds prn Continue Prolia infusion Renal impairment 10/22/2023 10/22/2023 Tear of medial meniscus of left knee 10/22/2023 10/22/2023 Vitamin D deficiency 10/22/2023 10/22/2023 Lumbar facet arthropathy 10/22/2023 023 Assessment & Plan (11/19/2023 12:43 PM EST): Significant improving, has some residual foot cramps Recommended stretching exercises, wear warm clothes Reconsult PRN Hyperparathyroidism 10/22/2023 10/22/2023 Disc degeneration, lumbar 10/22/20232022 Primary insomnia 09/09/2023 Assessment & Plan (09/09/2023 9:47 AM EDT): Did not improve with Rx, difficult to increase doses or give a stronger Rx due to recent syncope Refer to sleep medicine Discussed with Pt regarding sleep hygiene FU 3 months Syncope 09/06/2023 Assessment & Plan (09/09/2023 9:50 AM EDT): Most likely due to hyperglycemia/hemodynamic changes I have discussed with patient regarding increasing physical activity and decrease calorie intake Counseled to remain hydrated I'll check FBS with next set of labs. To check RBS at next visit. FU with me next visit Hypoglycemia 09/06/2023 Grief at loss of child 08/27/2023 Assessment & Plan (08/27/2023 11:53 AM EDT): Pt will be traveling to [facility] for the for her child. Prescription for 3 months given to pt She seems to be coping well and is around family I will fu on her return Hyponatremia 08/27/2023 Assessment & Plan (08/27/2023 11:54 AM EDT): Resolved upon SNF discharge Recheck BMP Fu with me Shingles 08/27/2023 Assessment & Plan (08/27/2023 11:56 AM EDT): Partial improvements She will add lidocaine cream to effected area and pt will take tramadol 25-50 mg prn severe pain We discussed about zoster IZ, unfortunately pt could not afford IZ at the time, Fu 3 months Bilateral knee pain 05/06/2023 Assessment & Plan (05/06/2023 2:16 PM EDT): most likely related to radiculopathy, unclear if she has plantar fasciitis refer to podiatry Prediabetes 05/06/2023 Assessment & Plan (11/19/2023 4:00 PM EST): I have discussed with patient regarding increasing physical activity and decrease calorie intake I'll check FBS with next set of labs. To check RBS at next visit. RBS wnl Will reschedule appointment w/ assembler and tester electronics when she returns form her trip from [facility] Fu 4-6 m Assessment & Plan (09/09/2023 9:44 AM EDT): Controlled. A1c is at goal. Encourage to remain hydrated at all times and I will refer to assembler and tester electronics, counseled re more frequent low calorie/carb meals. Check fgstk once daily Encouraged physical activity as tolerated. Pt seems to have BS fluctuations that may lead to some hemodynamic changes FU in 3 months. Assessment & Plan (05/06/2023 2:15 PM EDT): see hyperglycemia. Greater trochanteric bursitis of right hip 01/27 Assessment & Plan (01/27/2023 11:10 AM EDT): Refer to PT and pain clinic. Use tylenol up to 2 g per day for 1 week and then PRN Use Tramadol 25-50mg BID for severe pain, caution regarding dizziness, risk of falls. Habitual snoring 10/15/2022 Abnormal foot pulse 10/06/2022 Patellofemoral arthritis of left knee 10/06/2022 Bilateral tinnitus 10/06/2022 Candidal intertrigo 10/06/2022 Chronic gastritis 10/06/2022 Decreased hearing 10/06/2022 Esophagitis determined by biopsy 10/06/2022 Dizziness 10/06/2022 Epigastric pain 10/06/2022 Erosive esophagitis 10/06/2022 Hand joint pain 10/06/2022 Assessment & Plan (11/16/2024 8:53 PM EST): Most likely OA, has done OT. Take tylenol, she wants to be referred to rheumatology. Hyperglycemia 10/06/2022 Assessment & Plan (05/06/2023 2:17 PM EDT): Increase in BMP I discussed diagnosis of IGT with patient and gave her information for treatment refer to dietitian fu with me in 4 months Knee pain 10/06/2022 Lumbar back pain with radicu lopathy affecting left lower extremity 10/06/2022 Assessment & Plan (05/06/2023 2:17 PM EDT): Pt has lower extremity neuropathy/lumbar radiculopathy She did not tolerate epidural injections She did not tolerate gabapentin in the past continue PT for now Assessment & Plan (01/27/2023 11:08 AM EDT): Symptoms seem to have improved significantly. Continue ambulation as tolerated with a cane. Take Tylenol PRN and continue off gabapentin. Multinodular goiter 10/06/2022 Neuropathy 10/06/2022 Effusion, left knee 10/06/2022 Right leg pain 10/06/2022 Paresthesia of foot 10/06/2022 Spinal stenosis of lumbar region 10/06/2022 Subclinical hyperthyroidism 10/06/2022 Abnormal LFTs 10/06/2022 At risk for falls 10/06/2022 Peripheral nerve disease 09/21/2019 Disorder of peripheral nerve of right lower extr emity 09/20/2019 Adjustment insomnia 03/13/2019 Assessment & Plan (11/19/2023 12:43 PM EST): Continue Mirtazapine qHS, discussed about side effects and I told her to have healthy snacks for increased appetite. FU 6 m Assessment & Plan (08/27/2023 11:52 AM EDT): Dc trazodone and increase gabapentin 600 mg qHS (will cont 300 mg in the morning for pain) If not improved after 1 wk, she will take mirtazapine up to 7.5 mg - 30 mg qHS insomnia Allergic rhinitis 03/13/2019 Assessment & Plan (05/06/2023 2:15 PM EDT): Continue flonase PRN Hypertension 03/13/2019 Assessment & Plan (05/06/2023 2:18 PM EDT): Seems to be controlled, BP at goal today. Continue amlodipine 5 mg + Benazepril 7.5 mg Counseled re low salt diet/increase moderate physical activity. Check home BP BIW and prn CP/SWENSON/VAZQUEZ Non smoking patient. FU with [facility] clinic, GFR somewhat decreased, otherwise normal BMP Assessment & Plan (01/27/2023 11:41 AM EDT): BPs at home are invariably over 150s/90s. Will add Benicar to simplify regimen with amlodipine, will try to taper down to off of metoprolol due to risk of bradycardia. Counseled re low salt diet/increase moderate physical activity. Check home BP BIW and prn CP/SWENSON/VAZQUEZ Non smoking patient. FU on 02/22 with [facility] clinic. FU with me in 2 months. CKD (chronic kidney disease), stage IV 9 Assessment & Plan (05/24/2024 12:32 PM EDT): - last GFR was within normal limits - continue to f/u every year High cholesterol 03/13/2019 Goiter 03/13/2019 Resolved Problems Problem Noted Date Diagnosed Date Resolved Date Bilateral sacroiliitis 10/22/2023 10/22/202305/24 Encounters Date Type Department Care Team Description 12/25/2024 9:30 AM EST Office Visit [facility] [address] [place], [place] [phone] Duyen Schwab MD Primary hypertension (Primary Dx); Prediabetes; Preop cardiovascular exam 12/25/2024 Travel 12/22/2024 Telephone [facility] [address] [place], [place] [phone] Evi Thomson MD telephone call 12/05/2024 Telephone [facility] [address] [place] [address] Evi Thomson MD pre op 11/29/2024 Telephone [facility] [address] [place] [address] Evi Thomson MD Stable Imaging Letter from Last 3 Months Immunizations Name Administration Dates Next Due Influenza High-dose Quadriva lent Preservative Free 10/06/2022,10/01/2020 Influenza Injectable Quadriv alant Preservative Free IIV4 MDCK 10/28/2021 Influenza injectable quadriv alent preservative free 08/24/2019 Moderna Covid-19 Vaccine 12+ 10/17/2021,03/20/20 21,02/20/2021 Pfizer Covid-19 Vaccine 12+ 04/04/2024 Pneumococcal Conjugate PCV 20 04/04/2024 Tdap 04/04/2024 Family History Medical History Relation Name Comments Diabetes Brother Glaucoma Brother Hypertension Brother Relation Name Status Comments Brother Social History Tobacco Use Types Packs/Day Years Used Date Smoking Tobacco: Former Cigarettes Passive Smoke Exposure: Past Smokeless Tobacco: Never Tobacco Cessation:Counseling Given: Not Answered Alcohol Use Standard Drinks/Week Comments Not Currently [...] Orientation Straight 09/14/2022 10 :16 AM EDT Last Filed Vital Signs Vital Sign Reading [...] Mass Index 28.68 12/25/2024 9:46 AM EST Plan of Treatment Upcoming Encounters Date Type Department Care Team (Late st Contact Info) Description 02/12/2025 10:00 AM EDT Office Visit [facility] [address] [place] [address] Aries Aria, OD [address] [place] [address] Health Maintenance Due Date Last Done Comments Alcohol/Substance Use Screening 1952 Zoster Vaccines (1 of 2) 1988 RSV Patients and Patients Aged 60 years or older (1 - 1-dose 75+ series) 2013 COVID-19 Vaccine ( season) 2024 04/04/2024, 10/17/2021, 03/20/2021, Additional history exists Influenza Vaccine (#1) 2024 , 10/28/2021, 10/01/2020, Additional history exists Depression Screening 05/24/2025 05/24/2024, 05/24/20 24 SDOH Screening 05/24/2025 05/24/2024 Tobacco Screening 09/14/2025 09/14/2024 Diabetes: Hemoglobin A1C 12/25/2025 025, 09/06/2023, 05/06/2023, Additional history exists Lipid Panel 02/09/2028 02/08/2023, 10/01/2020 DTaP/Tdap/Td Vaccines (2 - Td or Tdap) 04/04/2034 04/04/2024 Pneumococcal Vaccine: 50+ Years Completed 04/04/2024 HIB Vaccines Aged Out No longer eligi ble based on patient's age to complete this topic HPV Vaccines Aged Out No longer eligi ble based on patient's age to complete this topic Hepatitis A Vaccines Aged Out No long er eligible based on patient's age to complete this topic Hepatitis B Vaccines Aged Out No long er eligible based on patient's age to complete this topic IPV Vaccines Aged Out No longer eligi ble based on patient's age to complete this topic Meningococcal Vaccine Aged Out No lily sylvester eligible based on patient's age to complete this topic RSV under 20 months Aged Out No longe r eligible based on patient's age to complete this topic Rotavirus Vaccines Aged Out No longer eligible based on patient's age to complete this topic Goals Goal Patient Goal Type Associated Problems Recent Progress Patient-Stated? Author Blood Pressure < 140/90 Blood Pressure 130/66( 025 9:46 AM EST) Valerio Martins, Karl Procedures Procedure Name Priority Date/Time Associated Diagnosis Comments POCT GLUCOSE Routine 12/25/2024 10:19 AM EST Prediabetes POCT GLYCATED HEMOGLOBIN, TOTAL Routine 12/25/2024 10:18 AM EST Prediabetes ECG 12-LEAD Routine 12/25/2024 10:08 AM EST Primary hypertension Preop cardiovascular exam MR BRAIN WO CONTRAST Routine 11/26/2024 10:42 AM EST Decreased attention Span LIPID PANEL WITH REFLEX TO DIRECT LDL Routine 02/08/2023 7:53 AM EDT from Last 3 Months or Most Recently Relevant to Health Maintenance Results * (ABNORMAL) POCT glucose manually resulted (12/25/2024 10:19 AM EST) Glucose Blood, POC 163 60 - 200 mg/dL QC Media Lot # Comment:[id number] Lot# Expiration Date Comment:02/20/2025 Blood Capillary blood specimen / Unknown 12/25/2024 10:19 AM EST Duyen Schwab MD POINT OF CARE TEST ENTER/EDIT OR DERABLES Final Result * (ABNORMAL) POCT A1C (12/25/2024 10:18 AM EST) Hemoglobin A1C 5.8 4.0 - 6.0 % QC Media Lot # Comment:[id number] Lot# Expiration Date Comment:09/01/2026 Blood 12/25/2024 10:1 8 AM EST us Duyen Schwab MD POINT OF CARE TEST ENTER/EDIT OR DERABLES Final Result * ECG 12 lead (12/25/2024 10:08 AM EST) Narrative Duyen Schwab MD - 12/25/2024 10:08 AM EST NSR No acute process us Duyen Schwab MD ECG ORDERABLES Final Result * MR Brain w/o Contrast (11/26/2024 10:42 AM EST) Anatomical Region Laterality Modality Brain Magnetic Resonan ce 11/26/2024 10:4 2 AM EST Narrative 11/28/2024 9:34 AM EST ? [facility] ?[address] ?[place] [address] ? Magnetic Resonance Report ? Signed ? Patient: Linda Carranza ?MR# ?? : [id number] ? : 1940 ?Acct:[id number] ? Age/Sex: 83 / F ?ADM Date: 11/26/24 ? Loc: HO.MRI ? Attending Dr: Evi Thomson MD ? Ordering Physician: Evi Thomson MD ?? Date of Service: 11/26/24 ?? Procedure(s): MR head/brain wo con ?? Accession Number(s): [id number] ? cc: Evi Thomson MD ? EXAMINATION: ??MR BRAIN WITHOUT IV CONTRAST ? HISTORY: ??memory impairment/dizziness ? TECHNIQUE: ?Sagittal T1, coronal FLAIR, and axial T1, FLAIR, T2, ?? gradient echo, and diffusion weighted MR images of the brain were ?? obtained. ? COMPARISON: Correlation is made with an unenhanced head CT dated ?? 07/19/2023. ? FINDINGS: ? The brain parenchyma is unremarkable, demonstrating normal khanna/white ?? differentiation. No foci of abnormal signal intensity are identified. ?? The ventricular system is normal in size and configuration. ??There is ?? no mass effect or midline shift. No intra or extra-axial fluid ?? collections are identified. There are no foci of restricted diffusion. ? Normal vascular flow voids are noted in the basilar and carotid ?? arteries. ??The visualized paranasal sinuses are clear. ? MR/MR head/brain wo con ?? IMPRESSION: ? Unremarkable MRI of the brain without contrast. ? Electronically signed by: ??Sarthak Austin MD ??11/28/2024 09:32 AM EST ?? RP ? Dictated By: ?Sarthak Austin MD ? Signed By: ?<Electronically signed by Sarthak Austin MD in OV> ?11/28/24 0932 ? DD/ 1042 ? TD/TT: 11/26/24 1119 ? Glaciologist: ? Procedure Note Donangelinadoroteolinter, Image - 11/28/2024 [place] [id number] Magnetic Resonance Report Signed Patient: Linda CarranzaMR# : [id number] : 9Acct:[id number] Age/Sex: 83 / FADM Date: 11/26/24 Loc: HO.MRI Attending Dr: Evi Thomson MD Ordering Physician: Evi Thomson MD Date of Service: 11/26/24 Procedure(s): MR head/brain wo con Accession Number(s): [id number] cc: Evi Thomson MD EXAMINATION: MR BRAIN WITHOUT IV CONTRAST HISTORY: memory impairment/dizziness TECHNIQUE: Sagittal T1, coronal FLAIR, and axial T1, FLAIR, T2, gradient echo, and diffusion weighted MR images of the brain were obtained. COMPARISON: Correlation is made with an unenhanced head CT dated 07/19/2023. FINDINGS: The brain parenchyma is unremarkable, demonstrating normal khanna/white differentiation. No foci of abnormal signal intensity are identified. The ventricular system is normal in size and configuration. There is no mass effect or midline shift. No intra or extra-axial fluid collections are identified. There are no foci of restricted diffusion. Normal vascular flow voids are noted in the basilar and carotid arteries. The visualized paranasal sinuses are clear. MR/MR head/brain wo con IMPRESSION: Unremarkable MRI of the brain without contrast. Electronically signed by: Sarthak Austin MD 11/28/2024 09:32 AM EST Dictated By: Sarthak Austin MD Signed By: <Electronically signed by Sarthak Austin MD in OV> 11/28/24 0932 DD/ 1042 TD/TT: 11/26/24 1119 Glaciologist: Evi Thomson MD IMG MRI PROCEDURES Final Result * Lipid Panel with Reflex to Direct LDL (02/08/2023 7:53 AM EDT) Triglycerides 257 mg/dL [facility] Comment:Desirable Triglyceri de: less than 150 mg/dLBorderline High Triglyceride 150-199 mg/dLHigh Triglyceride: 200-499 mg/dLVery High Triglyceride: greater than or equal to 5OO mg/dL Cholesterol 138 mg/dL [facility] Comment:Desirable Cholestero l: less than 200 mg/dLBorderline High Cholesterol: 200-239 mg/dLHigh Cholesterol: greater than 239 mg/dL LDL Cholesterol Calculated 54 mg/dl [facility] Comment:Desirable LDL: less than 100 mg/dLNear Optimal/Above Optimal LDL: 110- 129 mg/dLBorderline High LDL: 130-159 mg/dLHigh LDL: 160-189 mg/dLVery High LDL: greater than or equal to 190 mg/dL HDL Cholesterol 33 mg/dL [facility] Comment:Desirable HDL: great er than 40 mg/dL Note: This HDL assay may give artificially low results in patients with liver disease. 02/08/2023 7:53 AM EDT 02/08/2023 7:53 AM EDT [facility] External Provider LAB BLO OD ORDERABLES Final Result [facility] [address] [place], [place] [phone] from Last 3 Months or Most Recently Relevant to Health Maintenance Insurance [facility] MEDIC[facility] Care Teams Internal Controls Manager Relationship Specialty Start Date End Date Evi Thomson MD [address] [place] [address] PCP - General Family Medicine 03/13/19 Valerio Sweet, PharmD [address] [place] [address] [place] [id number] Pharmacist Internal Medicine 11/02/22
--- OUTSIDE RECORDS SUMMARY | 2024-12-25 11:22 | XMS_ITS | Encounter Summary ---
Author Organization [employer] Address [address] [facility] [address] [place] [address] Care Team Providers Care Elevator Serviceman Name Role Phone Evi Thomson MD Primary Care Provider + Valerio Sweet PharmD Unavailable [phone] Reason for Visit * Reason Onset Date Comments HDF/Triage 01/07/2023 Encounter Details Date Type Department Care Team (Late st Contact Info) Description 01/07/2023 Telephone [facility] [address] [place] [address] Evi Thomson MD [address] [place], [place] [phone] HDF/Triage Social History Tobacco Use Types Packs/Day Years [...] suspected to have Coronavirus/COVID-19? No / Unsure 12/25/2022 11:53 AM EST documented as of this encounter Miscellaneous Notes * Telephone Encounter - Dyana Waters Ameya - 01/07/2023 3:31 PM EST Patient calling for HDF follow up appointment. Patient hospitalized at [facility] . Patient was admitted on 01/06/2023 and discharged on same day. Patient was advised will forward to triage nurse for follow up and appointment scheduling. Please contact pt son in law on [phone] documented in this encounter Plan of Treatment Upcoming Encounters Date Type Department Care Team (Late st Contact Info) Description 02/12/2025 10:00 AM EDT Office Visit [facility] [address] [place] [address] Aria Chris, BIBIA[place] [address] [place] [address] documented as of this encounter Visit Diagnoses Not on filedocumented in this encounter Care Teams Elevator Serviceman Relationship Specialty Start Date End Date Evi Thomson MD [address] [place] [address] PCP - General Family Medicine 03/13/19 Valerio Sweet, NickiD [address] [place] [id number] Pharmacist Internal Medicine 11/02/22 documented as of this encounter
--- OUTSIDE RECORDS SUMMARY | 2024-12-25 11:22 | XMS_ITS | Encounter Summary ---
Author Organization [employer] Address [address] [facility] [address] [place] [address] Care Team Providers Care [employer] Unified Communications Engineer Name Role Phone Evi Thomson MD Primary Care Provider + Valerio Sweet PharmD Unavailable [phone] Reason for Visit * Reason Onset Date Comments Hospital Follow-up 08/12/2023 Encounter Details Date Type Department Care Team (Late st Contact Info) Description 08/12/2023 Telephone [facility] [address] [place], [place] [phone] Evi Thomson MD [address] [place], [place] [phone] Hospital Follow-up Social History Tobacco Use Types Packs/Day Years [...] encounter Miscellaneous Notes * Telephone Encounter - [place] - 08/12/2023 12:02 PM EDT Pt daughter calling for HDF follow up appointment. Pt hospitalized at [facility] on 07/16/23 and discharged on 08/11/23. Pt advised will forward nurse for follow up and appointment scheduling. Please contact at [phone] Uzbek documented in this encounter Plan of Treatment Upcoming Encounters Date Type Department Care Team (Late st Contact Info) Description 02/12/2025 10:00 AM EDT Office Visit [facility] [address] [place] [address] Aries, Aria, OD [address] [place] [address] documented as of this encounter Goals Goal Patient Goal Type Associated Problems Recent Progress Patient-Stated? Author Blood Pressure < 140/90 Blood Pressure 130/66( 025 9:46 AM EST) No Valerio Sweet, PharmD documented as of this encounter Visit Diagnoses Not on filedocumented in this encounter Care Teams [employer] Unified Communications Engineer Relationship Specialty Start Date End Date Berto, Eli, MD [address] [place] [address] PCP - General Family Medicine 03/13/19 Valerio Sweet, NickiD [address] [place] [address] Pharmacist Internal Medicine 11/02/22 documented as of this encounter
--- OUTSIDE RECORDS SUMMARY | 2024-12-25 11:23 | XMS_ITS | Encounter Summary ---
Author Organization [employer] Address 75 [facility] 7t [place] [address] Care Team Providers Care Pelletizer Tender Name Role Phone Evi Thomson MD Primary Care Provider + Valerio Sweet PharmD Unavailable [phone] Encounter Details Date Type Department Care Team (Late Contact Info) Description 10/16/2022 Orders Only [facility] MEDICINE 230 [place], [place] [phone] Evi Thomson MD 230 [place], [place] [phone] Social History Tobacco Use Types Packs/Day Years Used Date Smoking Tobacco: Never Assessed Comments No Sex and Gender Information Value [...] suspected to have Coronavirus/COVID-19? No / Unsure 10/15/2022 11:46 AM EST documented as of this encounter Plan of Treatment Upcoming Encounters Date Type Department Care Team ([facility] Contact Info) Description 02/12/2025 10:00 AM EDT Office Visit [facility] OPTOMETRY [address] [place], [place] [phone] Aria Chris, OD 230 [place] [address] documented as of this encounter Visit Diagnoses Not on filedocumented in this encounter Care Teams Pelletizer Tender Relationship Specialty Start Date End Date Evi Thomson MD 230 [place] [address] PCP - General Family Medicine 03/13/19 Valerio Sweet, Karl [address] [place] [address] Pharmacist Internal Medicine 11/02/22 documented as of this encounter
--- OUTSIDE RECORDS SUMMARY | 2024-12-25 11:23 | XMS_ITS | Encounter Summary ---
Author Organization [facility] Address 75 [facility] 7t [place] [address] Care Team Providers Care Corporate Travel Agent Name Role Phone Evi Thomson MD Primary Care Provider + Valerio Sweet PharmD Unavailable [phone] Encounter Details Date Type Department Care Team (Late Contact Info) Description 10/06/2022 Abstract [facility] MEDICINE 230 [place] [address] ProviderFuentes MD Social History Tobacco Use Types Packs/Day Years Used Date Smoking Tobacco: Never Assessed Comments Unknown Sex and Gender Information Value Date Recorded Sex Assigned at Female 09/14/2022 10:16 AM EDT Legal Sex Female 10:16 AM EDT Gender Identity Female 09/14/2022 10:16 AM EDT Sexual Orientation Straight 09/14/2022 10 :16 AM EDT documented as of this encounter Plan of Treatment Upcoming Encounters Date Type Department Care Team (Late Contact Info) Description 02/12/2025 10:00 AM EDT Office Visit [facility] OPTOMETRY [address] [place] [address] Aries, Aria, OD 230 [place] [address] documented as of this encounter Visit Diagnoses Not on filedocumented in this encounter Care Teams Corporate Travel Agent Relationship Specialty Start Date End Date Evi Thomson MD 230 [place] [address] PCP - General Family Medicine 4/29/19 Valerio Sweet, PharmD [address] [place] [address] Pharmacist Internal Medicine 11/02/22 documented as of this encounter
--- OUTSIDE RECORDS SUMMARY | 2024-12-25 11:23 | XMS_ITS | Encounter Summary ---
Author Organization [employer] Address 75 [facility] 7t [place] [address] Care Team Providers Care Meteorology Professor Name Role Phone Evi Thomson MD Primary Care Provider + Valerio Sweet PharmD Unavailable [phone] Reason for Visit * Reason Onset Date Comments pre op 12/05/2024 Encounter Details Date Type Department Care Team (Late st Contact Info) Description 12/05/2024 Telephone [facility] MEDICINE 230 [place], [place] [phone] Evi Thomson MD 230 [place], [place] [phone] pre op Social History Tobacco Use Types Packs/Day Years [...] encounter Miscellaneous Notes * Telephone Encounter - Dinora Rodriguez - 12/06/2024 10:38 AM EST Facility agreed to pre op appointment on 12/22/24 with [place]. Appointment reminder letter mailed * Telephone Encounter - Himanshu Nolen - 12/05/2024 2:43 PM EST Date of Surgery: 12/29 Surgical procedure being done: Bilateral Upper Eyelid Surgery and Muscle Surgery Type of anesthesia: MAC Lab needed: Yes EKG: Yes Surgeon's name: Facility name: [facility]. Surgeon's office number: [phone] Surgeon's office fax number: [phone] Contact name (person you spoke with): Ness Last office note from surgeon requested: No Send Message to Dinora Rodriguez and Kevin Woods documented in this encounter Plan of Treatment Upcoming Encounters Date Type Department Care Team ([facility] st Contact Info) Description 02/12/2025 10:00 AM EDT Office Visit [facility] OPTOMETRY [address] [place] [address] Aria Chris, OD 230 [place] [address] documented as of this encounter Goals Goal Patient Goal Type Associated Problems Recent Progress Patient-Stated? Author Blood Pressure < 140/90 Blood Pressure 130/66( 025 9:46 AM EST) No Valerio Sweet, Karl documented as of this encounter Visit Diagnoses Not on filedocumented in this encounter Care Teams Meteorology Professor Relationship Specialty Start Date End Date Evi Thomson MD [address] [place] [address] PCP - General Family Medicine 03/13/19 Valerio Sweet, PharmD [address] [place] [address] Pharmacist Internal Medicine 11/02/22 documented as of this encounter
--- OUTSIDE RECORDS SUMMARY | 2024-12-25 11:23 | XMS_ITS | Encounter Summary ---
Author Organization [employer] Address 75 [facility] 7t [place] [address] Care Team Providers Care Hand Etcher Name Role Phone Evi Thomson MD Primary Care Provider + Valerio Sweet PharmD Unavailable [phone] Reason for Visit * Reason Onset Date Comments Stable Imaging Letter 11/29/2024 Encounter Details Date Type Department Care Team (Late st Contact Info) Description 11/29/2024 Telephone [facility] MEDICINE 230 [place], [place] [phone] Evi Thomson MD 230 [place], [place] [phone] Stable Imaging Letter Social History Tobacco Use Types Packs/Day Years Used Date Smoking Tobacco: Former Cigarettes Passive Smoke Exposure: Past Smokeless Tobacco: Never Alcohol Use Standard Drinks/Week Comments Not Currently 0 (1 standard drink = 0.6 oz pur e alcohol) PHQ-2 Answer Date Recorded Patient Health Questionnaire-2 Score 0 05/06/2023 Housing Stability Answer Date Recorded What is your housing situation today? I have isidradyllan high 05/24/[address] you [...] encounter Miscellaneous Notes * Telephone Encounter - Pam Freeman - 11/29/2024 8:23 AM EST Mailed out stable imaging letter. documented in this encounter Plan of Treatment Upcoming Encounters Date Type Department Care Team (Late st Contact Info) Description 02/12/2025 10:00 AM EDT Office Visit [facility] OPTOMETRY [address] [place] [address] Aries, Aria, OD 230 [place] [address] documented as of this encounter Goals Goal Patient Goal Type Associated Problems Recent Progress Patient-Stated? Author Blood Pressure < 140/90 Blood Pressure 130/66( 025 9:46 AM EST) No Valerio Sweet PharmD documented as of this encounter Visit Diagnoses Not on filedocumented in this encounter Care Teams Hand Etcher Relationship Specialty Start Date End Date Evi Thomson MD 230 [place] [address] PCP - General Family Medicine 03/13/19 Valerio Sweet, PharmD [address] [place] [address] Pharmacist Internal Medicine 11/02/22 documented as of this encounter
[2024-12-25 14:04] LABS: MANUAL DIFF FLAG NO
[2024-12-25 14:08] LABS: Basophils Percent Auto 0.6 % (0-2); Eosinophils Absolute Auto 0.1 X10*3/uL (0.0-0.4); Hematocrit 37.3 % (37.0-47.0); Hemoglobin 11.8 g/dl (12.0-16.0); Imm Gran Abs Auto 0.01 X10*3/uL (0.00-0.03); Imm Gran Pct Auto 0.2 % (0.0-0.4); Lymphocytes Absolute Auto 1.6 X10*3/uL (1.2-4.9); Lymphocytes Percent Auto 30.7 % (20-40); Mean Corpuscular HGB Conc 31.6 g/dl (31.0-35.0); Mean Corpuscular Hemoglobin 26.9 pg (27.0-33.0); Mean Platelet Volume 11.8 fL (9.4-12.3); Monocytes Absolute Auto 0.4 X10*3/uL (0.1-1.2); Monocytes Percent Auto 7.5 % (2-11); Platelet Count 182 X10*3/uL (160-400); Red Blood Count 4.39 X10*6/uL (4.20-5.50); White Blood Count 5.1 X10*3/uL (4.8-10.8)
[2024-12-25 14:27] LABS: Alanine Aminotransferase 29 U/L (0-31); Alkaline Phosphatase 65 U/L (39-117); Anion Gap 10 (12-20); Aspartate Amino Transferase 24 U/L (5-31); Bilirubin Direct 0.2 mg/dL (0.0-0.5); Bilirubin Total 0.9 mg/dL (0.0-1.0); Blood Urea Nitrogen 19 mg/dL (9-16); Carbon Dioxide 23 mmol/L (22-29); Chloride 111 mmol/L (96-108); Cholesterol 123 mg/dL (<200); Estimated Glomerular Filt Rate 46; Glucose Random 123 mg/dL (60-115); HDL Cholesterol 32 mg/dL (>40); LDL Cholesterol Calculated 27 mg/dL (<100); Potassium 4.8 mmol/L (3.3-5.1); Sodium 139 mmol/L (135-145); Triglycerides 322 mg/dL (<150)
== END 2024-12-25 10:27 | disposition home or self-care (01) ==
LOC: HO.CHCLDS 10:26
PROVIDERS: Visit Provider Student in an Organized Health Care Education/Training Program
DX: Z01.810 Encounter for preprocedural cardiovascular examination (principal); I10 Essential (primary) hypertension; R73.03 Prediabetes
CPT/HCPCS: 36415; 80048; 80061; 80076; 85025

== ENCOUNTER 2025-03-26 07:10 | Outpatient (REF) | payer MEDICARE, MEDICAID, SELFPAY ==
--- OUTSIDE RECORDS SUMMARY | 2025-03-26 07:13 | XMS_ITS | Encounter Summary ---
Author Organization [employer] Address 75 [facility] 7t [place] [address] Care Team Providers Care Armed Guard Name Role Phone Evi Thomson MD Primary Care Provider + Valerio Sweet PharmD Unavailable Reason for Visit * Reason Comments Med Refill Encounter Details Date Type Department Care Team ([facility] st Contact Info) Description 05/14/2024 Refill [facility] MEDICINE 230 [place] [address] Amrita Alfred FNP 230 [place] [address] Social History Tobacco Use Types Packs/Day Years Used Date Smoking Tobacco: Former Cigarettes Passive Smoke Exposure: Past Smokeless Tobacco: Never Alcohol Use Standard Drinks/Week Comments Not Currently 0 (1 standard drink = 0.6 oz pur e alcohol) PHQ-2 Answer Date Recorded Patient Health Questionnaire-2 Score 0 05/06/2023 Housing Stability Answer Date Recorded What is your housing situation today? I have isidra high 09/01/[address] you [...] Care Team (Late st Contact Info) Description 04/19/2025 10:15 AM EDT Office Visit [facility] MEDICINE 230 [place] [address] Evi Thomson MD 230 [place] [address] documented as of this encounter Goals Goal Patient Goal Type Associated Problems Recent Progress Patient-Stated? Author Blood Pressure < 140/90 Blood Pressure 130/66( 025 9:46 AM EST) No Valerio Sweet, Karl documented as of this encounter Visit Diagnoses Not on filedocumented in this encounter Care Teams Armed Guard Relationship Specialty Start Date End Date Evi Thomson MD [address] [place] [address] PCP - General Family Medicine 03/13/19 Valerio Sweet, PharmD [address] [place] [address] Pharmacist Internal Medicine 11/02/22 documented as of this encounter
--- OUTSIDE RECORDS SUMMARY | 2025-03-26 07:13 | XMS_ITS | Encounter Summary ---
Author Organization [facility] Address [address] [place] [address] 7t [place] [address] Care Team Providers Care Perinatal Tech Name Role Phone Evi Thomson MD Primary Care Provider + Valerio Sweet PharmD Unavailable [phone] Encounter Details Date Type Department Care Team (Late st Contact Info) Description 10/06/2022 Abstract [facility] MEDICINE [address] [place] [address] ProviderFuentes MD Social History Tobacco Use Types [...] Description 04/19/2025 10:15 AM EDT Office Visit [facility] MEDICINE [address] [place] [address] Evi Thomson MD [address] [place] [address] [phone] documented as of this encounter Visit Diagnoses Not on filedocumented in this encounter Care Teams Perinatal Tech Relationship Specialty Start Date End Date Evi Thomson MD [address] [place] [address] [phone] PCP - General Family Medicine 4/29/19 Valerio Sweet, PharmD [address] [place] [address] Pharmacist Internal Medicine 11/02/22 documented as of this encounter
--- OUTSIDE RECORDS SUMMARY | 2025-03-26 07:13 | XMS_ITS | Encounter Summary ---
Author Organization [employer] Address 75 [facility] 7t [place] [address] Care Team Providers Care Geomorphology Teacher Name Role Phone Evi Thomson MD Primary Care Provider + Valerio Sweet PharmD Unavailable [phone] Reason for Visit * Reason Comments Med Refill Encounter Details Date Type Department Care Team (Late st Contact Info) Description 08/12/2024 Refill [facility] MEDICINE 230 [place], [place] [phone] Evi Thomson MD 230 [place], [place] [phone] Allergic rhinitis due to other allergic trigger, [...] Description 04/19/2025 10:15 AM EDT Office Visit [facility] MEDICINE [address] [place] [address] Evi Thomson MD [address] [place] [address] documented as of this encounter Goals Goal Patient Goal Type Associated Problems Recent Progress Patient-Stated? Author Blood Pressure < 140/90 Blood Pressure 130/66( 025 9:46 AM EST) No Valerio Sweet PharmD documented as of this encounter Visit Diagnoses Diagnosis Allergic rhinitis due to other allergic trigger, unspecified seasonality documented in this encounter Care Teams Geomorphology Teacher Relationship Specialty Start Date End Date Evi Thomson MD [address] [place] [address] PCP - General Family Medicine 03/13/19 Valerio Sweet PharmD [address] [place] [address] Pharmacist Internal Medicine 11/02/22 documented as of this encounter
--- OUTSIDE RECORDS SUMMARY | 2025-03-26 07:13 | XMS_ITS | Clinical Summary ---
Author Organization [facility] Address [address] [place] [address] Care Team Providers Care Supervisor Asbestos Removal Name Role Phone Evi Thomson MD Primary Care Provider [phone] Medications No known medications Active Problems No known active problems Social History Tobacco Use Types Packs/Day Years Used Date Smoking Tobacco: Never Assessed Sex and Gender Information Value Date Recorded Sex Assigned at Female 09/03/2023 5:45 AM EDT Gender Identity Not on file Sexual Orientation Not on file Job Start Date Occupation Industry Not on file Not on file Not on file Last Filed Vital Signs Vital Sign Reading Time Taken Comments Blood Pressure 143/80 09/03/2023 10:15 AM EDT Pulse 87 09/03/2023 10:15 AM EDT Temperature 36.7 ??C (98 ??F) 09/03/2023 10:15 AM EDT Respiratory Rate 24 09/03/2023 10:15 AM EDT Oxygen Saturation 95% 09/03/2023 10:15 AM EDT Inhaled Oxygen Concentration - - Weight - - Height - - Body Mass Index - - Plan of Treatment Health Maintenance Due Date Last Done Comments Depression Screening 1950 Preventative Health Evaluation 1956 DTap / Tdap / Td (1 - Tdap) 1957 Shingrix-Zoster Vaccine (1 o f 2) 1988 Fall Risk Assessment 2003 Osteoporosis Screening (DEXA Scan) 2003 Pneumococcal Vaccine (1 of 1 - PCV) 2003 RSV Adult > 60+ Yrs or (1 - 1-dose 75+ series) 2013 COVID-19 Vaccine (2023-2 5 season) 2024 10/17/2021, 03/20/2021, 02/20/2021 Influenza Vaccine (#1) 2024 , 10/01/2020, 08/24/2019 Hepatitis B Vaccines Aged Out No long er eligible based on patient's age to complete this topic RSV Ped < 20 months Aged Out No longe r eligible based on patient's age to complete this topic Care Teams Supervisor Asbestos Removal Relationship Specialty Start Date End Date Evi Thomson MD [address] [place] [phone] PCP - General Family Medicine 09/03/23
--- OUTSIDE RECORDS SUMMARY | 2025-03-26 07:13 | XMS_ITS | Encounter Summary ---
Author Organization [facility] Address [address] [facility] [address] [place] [address] Phone Care Team Providers Care Incoming Freight Clerk Name Role Phone Evi Thomson MD Primary Care Provider [phone] Encounter Details Date Type Department Care Team (Late Contact Info) Description 02/11/2021 Orders Only [facility] [address] [facility] [facility] [address] [place] [address] ProviderFuentes MD [address] [place] [address] Social History Tobacco Use Types Packs/Day [...] Visit [facility] [address] [place] [phone] Rikki Pratt MD [address] [facility] [address] [place] [address] documented as of this encounter Procedures Procedure Name Priority Date/Time Associated Diagnosis Comments EXT RESULT ENTRY Routine 02/11/2021 documented in this encounter Results * EXT RESULT ENTRY (02/11/2021) us Historical Provider LAB BLOOD ORDERABLES Clara l Result documented in this encounter Visit Diagnoses Not on filedocumented in this encounter Care Teams Incoming Freight Clerk Relationship Specialty Start Date End Date Evi Thomson MD [address] [place] [address] PCP - General 11/25/20 documented as of this encounter
--- OUTSIDE RECORDS SUMMARY | 2025-03-26 07:13 | XMS_ITS | Clinical Summary ---
Author Organization [facility] Address [address] [place] [phone] Phone Care Team Providers Care Prototype Fabricator Name Role Phone Evi Thomson MD Primary Care Provider [phone] Allergies No known active allergies Medications atorvastatin [...] Chronic kidney disease stage 4 01/27/2021 02/03/2021 Family History Medical History Relation Comments Cancer [...] Visit [facility] [address] [place] [address] Rikki Pratt MD [address] [facility] [address] [place] [address] Health Maintenance Due Date Last Done Comments Influenza Vaccine (Season Ended) 2025 10/28/2021, 08/24/2019 Pneumococcal Vaccine: 50+ Years Completed 04/04/2024 Pneumococcal Vaccine: Peds (0 to 5 Years) and At-Risk Patients (6 to 49 Years) Discontinued 04/04/2024 Hepatitis B Vaccine Aged Out No longe r eligible based on patient's age to complete this topic [place] Care Teams Prototype Fabricator Relationship Specialty Start Date End Date Evi Thomson MD [address] [place] [address] PCP - General 11/25/20
--- OUTSIDE RECORDS SUMMARY | 2025-03-26 07:13 | XMS_ITS | Encounter Summary ---
Author Organization [employer] Address 75 [facility] 7t [place] [address] Care Team Providers Care Alodize Machine Helper Name Role Phone Evi Thomson MD Primary Care Provider + Valerio Sweet PharmD Unavailable [phone] Encounter Details Date Type Department Care Team (Late st Contact Info) Description 11/24/2022 Orders Only [facility] MEDICINE 230 [place], [place] [phone] Evi Thomson MD 230 [place], [place] [phone] Hyperkalemia (Primary Dx) Social History Tobacco Use [...] hyperkalemia. Please call renal and ask that trolley car overhauler calls me back to discuss hyperkalemia and possibility of lokelma or changing meds documented in this encounter Plan of Treatment Upcoming Encounters Date Type Department Care Team (Late st Contact Info) Description 04/19/2025 10:15 AM EDT Office Visit [facility] MEDICINE 230 [place], [place] [phone] Evi Thomson MD 230 [place], [place] [phone] documented as of this encounter Procedures Procedure Name Priority Date/Time Associated Diagnosis Comments POTASSIUM Routine 11/27/2022 8:47 AM EST Hyperkalemia documented in this encounter Results * Potassium (11/27/2022 8:47 AM EST) Potassium 5.1 3.5 - 5.3 mmol/L [employer] [place] [employer] Blood Venous blood specimen / Unknown 11/27/2022 8:47 AM EST 11/27/2022 8:48 AM EST Narrative [facility] - 11/27/2022 8:46 PM EST FASTING:YES FASTING: YES us Evi Thomson MD LAB BLOOD ORDERABLES Fin al Result [facility] [address] [facility], [place] [address] [employer] [place] [employer] [address] [facility], ([address]) [place] [address] documented in this encounter Visit Diagnoses Diagnosis Hyperkalemia- Primary Hyperpotassemia documented in this encounter Care Teams Alodize Machine Helper Relationship Specialty Start Date End Date Evi Thomson MD 230 [place] [address] PCP - General Family Medicine 03/13/19 Valerio Sweet, NickiD 230 [place] [address] Pharmacist Internal Medicine 11/02/22 documented as of this encounter
--- OUTSIDE RECORDS SUMMARY | 2025-03-26 07:13 | XMS_ITS | Encounter Summary ---
Author Organization [employer] Address 75 [facility] 7t [place] [address] Care Team Providers Care Metallic Yarn Slitting Machine Operator Name Role Phone Evi Thomson MD Primary Care Provider + Valerio Sweet PharmD Unavailable [phone] Reason for Visit * Reason Onset Date Comments HDF/Triage 01/07/2023 Encounter Details Date Type Department Care Team (Late st Contact Info) Description 01/07/2023 Telephone [facility] MEDICINE 230 [place] [address] Evi Thomson MD 230 [place], [place] [phone] HDF/Triage Social History Tobacco Use Types Packs/Day [...] HDF follow up appointment. Patient hospitalized at [facility] . Patient was admitted on 01/06/2023 and discharged on same day. Patient was advised will forward to triage nurse for follow up and appointment scheduling. Please contact pt son in law on [phone] documented in this encounter Plan of Treatment Upcoming Encounters Date Type Department Care Team (Late st Contact Info) Description 04/19/2025 10:15 AM EDT Office Visit [facility] MEDICINE 230 [place] [address] Evi Thomson MD [address] [place] [address] documented as of this encounter Visit Diagnoses Not on filedocumented in this encounter Care Teams Metallic Yarn Slitting Machine Operator Relationship Specialty Start Date End Date Evi Thomson MD [address] [place] [address] PCP - General Family Medicine 03/13/19 Valerio Sweet, NickiD [address] [place] [address] Pharmacist Internal Medicine 11/02/22 documented as of this encounter
--- OUTSIDE RECORDS SUMMARY | 2025-03-26 07:13 | XMS_ITS | Encounter Summary ---
Author Organization [employer] Address 75 [facility] 7t [place] [address] Care Team Providers Care Arts And Crafts Instructor Name Role Phone Evi Thomson MD Primary Care Provider + Valerio Sweet PharmD Unavailable [phone] Reason for Visit * Reason Comments Med Refill Encounter Details Date Type Department Care Team ([facility] st Contact Info) Description 07/05/2024 Refill [facility] MEDICINE 230 [place], [place] [phone] Evi Thmoson MD 230 [place], [place] [phone] Allergic rhinitis due to other allergic trigger, [...] 10:15 AM EDT Office Visit [facility] MEDICINE [address] [place] [address] Evi Thomson MD [address] [place] [address] documented as of this encounter Goals Goal Patient Goal Type Associated Problems Recent Progress Patient-Stated? Author Blood Pressure < 140/90 Blood Pressure 130/66( 025 9:46 AM EST) No Valerio Sweet, Karl documented as of this encounter Visit Diagnoses Diagnosis Allergic rhinitis due to other allergic trigger, unspecified seasonality documented in this encounter Care Teams Arts And Crafts Instructor Relationship Specialty Start Date End Date Evi Thomson MD [address] [place] [address] PCP - General Family Medicine 03/13/19 Valerio Sweet PharmD [address] [place] [address] Pharmacist Internal Medicine 11/02/22 documented as of this encounter
--- OUTSIDE RECORDS SUMMARY | 2025-03-26 07:13 | XMS_ITS | Encounter Summary ---
Author Organization [employer] Address 75 [facility] 7t [place] [address] Care Team Providers Care Social Work Case Manager Name Role Phone Evi Thomson MD Primary Care Provider + Valerio Sweet PharmD Unavailable [phone] Reason for Visit * Reason Comments Med Refill Encounter Details Date Type Department Care Team ([facility] st Contact Info) Description 04/12/2024 Refill [facility] MEDICINE [address] [place], [place] [phone] Evi Thomson MD 230 [place], [place] [phone] Postherpetic neuralgia Social History Tobacco Use Types [...] Description 04/19/2025 10:15 AM EDT Office Visit [facility] MEDICINE [address] [place] [address] Evi Thomson MD [address] [place] [address] documented as of this encounter Goals Goal Patient Goal Type Associated Problems Recent Progress Patient-Stated? 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
--- OUTSIDE RECORDS SUMMARY | 2025-03-26 07:13 | XMS_ITS | Clinical Summary ---
Author Organization [employer] Address [address] [facility] [address] [place] [address] Care Team Providers Care Retail Service Representative Name Role Phone Evi Thomson MD Primary Care Provider + Valerio Sweet PharmD Unavailable [phone] Allergies No known active allergies Medications methIMAzole (Tapazole) 5 MG tablet Take 0.5 tablets by mouth 1 (one) time each day. Active Elastic Bandages & Supports (B & B Knee Brace/Supports) [facility] [place] Active Blood Pressure Monitoring (Omron 3 Series BP Monitor) device USE DAILY DIRECTED 022 Active Prolia 60 MG/ML solution prefilled syringe Inject 60mg subcutaneously every 6 months as directed 023 Active glucose blood test stripIndications:Predia betes Use as instructed 100 each 12 023 Active D3-1000 25 MCG (1000 UT) capsule TOME 1 C PSULA (25 MCG) ORALLY DAILY FOR 30 DAYS 023 Active rOPINIRole XL (Requip XL) 2 [...] AND/OR CHEW. 120 tablet 6 024 Active atorvastatin (Lipitor) 20 MG tabletIndications:Pure hypercholesterolemia TAKE 1 TABLET BY MOUTH EVERY MORNING 90 tablet 2 024 Active fluticasone (Flonase) 50 MCG/ACT nasal sprayIndications:Allerg ic rhinitis due to other allergic trigger, unspecified seasonality ADMINISTER 1 SPRAY INTO EACH NOSTRIL ONCE PER DAY. 48 mL 1 024 Active amLODIPine (Norvasc) 5 MG tabletIndications:Benig n hypertension TOME 1 TABLETA POR VIA ORAL TODOS [place] JO[place]PH 90 tablet 1 025 Active benazepril (Lotensin) 10 MG tabletIndications:Hyper tension, unspecified type TAKE 1 TABLET BY MOUTH EVERY MORNING 90 tablet 1 025 Active Active Problems Problem Noted Date Diagnosed [...] house keeping), will refer for evaluation of RN DOCUMENTATION - dicussed with pt regarding risk of [...] community programs and could be referred to [facility]) - will f/u next visit to see [...] AM EDT): Pt will be traveling to [facility] for the for her child. Prescription [...] visit. RBS wnl Will reschedule appointment w/ gold miner blasting when she returns form her trip from [facility] Fu 4-6 m Assessment & Plan (09/09/2023 9:44 AM EDT): Controlled. A1c is at goal. Encourage to remain hydrated at all times and I will refer to gold miner blasting, counseled re more frequent low calorie/carb meals. [...] Encounters Date Type Department Care Team Description 02/12/2025 10:00 AM EDT Office Visit [facility] OPTOMETRY [address] [place] [address] Aria Chris, OD Primary open angle glaucoma of both eyes, unspecified glaucoma stage (Primary Dx); Meibomian gland disease of both eyes, unspecified eyelid; PCO (posterior capsular opacification), bilateral; S/p bilateral blepharoplasty; Presbyopia 02/12/2025 Telephone [facility] MEDICINE [address] [place] [address] Evi Thomson MD Care Coordination 02/12/2025 Travel 01/26/2025 Population Health Risk Score [facility] ([facility] Department [address] [place] [phone] Provider, Population Health Generic 01/25/2025 Refill [facility] MED[facility] [address] [place] [address] Evi Thomson MD Hypertension, unspecified type 01/04/2025 Telephone [facility] MED[facility] [address] [place], [place] [phone] Evi Thomson MD May recall 12/30/2024 Refill [facility] MED[facility] [address] [place], [place] [phone] Evi Thomson MD Benign hypertension from Last 3 Months Immunizations Name Administration [...] Description 04/19/2025 10:15 AM EDT Office Visit [facility] MED[facility]INE [address] [place] [address] Evi Thomson MD [address] [place], [place] [phone] Health Maintenance Due Date Last Done Comments Alcohol/Substance Use Screening 1950 Zoster Vaccines (1 of 2) 1988 RSV Patients and Patients Aged 60 years or older (1 - 1-dose 75+ series) 2013 COVID-19 Vaccine ( season) 2024 04/04/2024, 10/17/2021, 03/20/2021, Additional history exists Influenza Vaccine (#1) 2024 , 10/28/2021, 10/01/2020, Additional history exists Depression Screening 05/24/2025 05/24/2024, 05/24/20 24 SDOH Screening 05/24/2025 05/24/2024 Diabetes: Hemoglobin A1C 12/25/2025 025, 09/06/2023, 05/06/2023, Additional history exists Tobacco Screening 02/23/2026 02/23/2025 Lipid Panel 12/25/2029 12/25/2024, 0305/2023, 10/01/2020 DTaP/Tdap/Td Vaccines (2 - Td or [...] 9:46 AM EST) No Valerio Sweet, Karl Procedures Procedure Name Priority Date/Time Associated Diagnosis Comments OPTIC DISC PHOTOS - OU - BOTH EYES Routine 02/12/2025 10:00 AM EDT Primary open angle glaucoma of both eyes, unspecified glaucoma stage LIPID PANEL, STANDARD Routine 12/25/2024 10:29 AM EST Prediabetes Primary hypertension POCT GLYCATED HEMOGLOBIN, TOTAL Routine 12/25/2024 10:18 AM EST Prediabetes from Last 3 Months or Most Recently Relevant to Health Maintenance Results * Optic Disc Photos - OU - Both Eyes (02/12/2025 10:00 AM EDT) Miriam AriesKavonn, OD - 02/23/2025 1:38 PM EDT Images from the original result were not included. Right Eye Progression has no prior data. Left Eye Progression has no prior data. Notes OPTIC NERVE PHOTO INTERPRETION Optic Nerve Photo Interpretation Test Details: Photo quality: OD: poor, very dark, undilated OS: poor, very dark, undilated Cup to disc ratio: OD vertical: 0.9 OD horizontal: 0.85 OS vertical: 0.9 OS horizontal: 0.85 Rim characteristics: ?? OD: advanced cupping, almost to the rim 360 degrees, PPA 360 degrees OS: advanced cupping, almost to the rim 360 degrees, PPA 360 degrees Assessment and Plan: Patient is being followed at [facility]. Will send today's notes to them for their records. Aria Chris OD OPHTH PHOTOGRAPHY Final Resul t * (ABNORMAL) Lipid Panel, Standard (12/25/2024 10:29 AM EST) Triglycerides 322(H) <150 mg/dL [facility] Comment:Slight Lipemia.Amber able Triglyceride: less than 150 mg/dLBorderline High Triglyceride 150-199 mg/dLHigh Triglyceride: 200-499 mg/dLVery High Triglyceride: greater than or equal to 5OO mg/dL Cholesterol 123 <200 mg/dL [facility] Comment:Desirable Cholestero l: less than 200 mg/dLBorderline High Cholesterol: 200-239 mg/dLHigh Cholesterol: greater than 239 mg/dL LDL Cholesterol Calculated 27 <100 mg/dL [facility] Comment:Desirable LDL: less than 100 mg/dLNear Optimal/Above Optimal LDL: 110- 129 mg/dLBorderline High LDL: 130-159 mg/dLHigh LDL: 160-189 mg/dLVery High LDL: greater than or equal to 190 mg/dL HDL Cholesterol 32(L) >40 mg/dL [facility] Comment:Desirable HDL: great er than 40 mg/dL Note: This HDL assay may give artificially low results in patients with liver disease. Blood Venous blood specimen / Unknown 12/25/2024 10:29 AM EST 12/25/2024 1:59 PM EST Duyen Schwab MD LAB BLOOD ORDERABLES Final Resul t [facility] [address] [place] [phone] * (ABNORMAL) POCT A1C (12/25/2024 10:18 AM EST) Hemoglobin A1C 5.8 4.0 - 6.0 % QC Media Lot # Comment:[id number] Lot# Expiration Date Comment:09/01/2026 Blood 12/25/2024 10:1 8 AM EST Duyen Schwab MD POINT OF CARE TEST ENTER/EDIT OR DERABLES Final Result from Last 3 Months or Most Recently Relevant to Health Maintenance Insurance [facility] STANDARD [place] [phone] Care Teams Retail Service Representative Relationship Specialty Start Date End Date Evi Thomson MD [address] [place] [phone] PCP - General Family Medicine 03/13/19 Valerio Sweet, PharmD [address] [place] [address] Pharmacist Internal Medicine 11/02/22
--- OUTSIDE RECORDS SUMMARY | 2025-03-26 07:13 | XMS_ITS | Encounter Summary ---
Author Organization [employer] Address [address] [facility] [address] [place] [address] Care Team Providers Care Digital Imager Name Role Phone Evi Thomson MD Primary Care Provider + Valerio Sweet PharmD Unavailable [phone] Encounter Details Date Type Department Care Team ([facility] Contact Info) Description 10/16/2022 Orders Only [facility] MEDICINE [address] [place] [address] [phone] Evi Thomson MD [address] [place] [address] [phone] Social History Tobacco Use Types Packs/Day Years [...] Upcoming Encounters Date Type Department Care Team ([facility] Contact Info) Description 04/19/2025 10:15 AM EDT Office Visit [facility] MED[facility]INE [address] [place] [address] [phone] Evi Thomson MD [address] [place] [place] [address] [phone] documented as of this encounter Visit Diagnoses Not on filedocumented in this encounter Care Teams Digital Imager Relationship Specialty Start Date End Date Evi Thomson MD [address] [place] [address] PCP - General Family Medicine 03/13/19 Valerio Sweet, Karl [address] [place] [place] [phone] Pharmacist Internal Medicine 11/02/22 documented as of this encounter
--- OUTSIDE RECORDS SUMMARY | 2025-03-26 07:13 | XMS_ITS | Encounter Summary ---
Author Organization [employer] Address [address] [facility] 7[address] [place] [address] Care Team Providers Care Page Makeup System Operator Name Role Phone Evi Thomson MD Primary Care Provider + Valerio Sweet PharmD Unavailable [phone] Reason for Visit * Reason Onset Date Comments pre op 12/05/2024 Encounter Details Date Type Department Care Team (Late st Contact Info) Description 12/05/2024 Telephone [facility] MED[facility]INE [address] [place], [place] [phone] Evi Thomson MD [address] [place], [place] [phone] pre op Social History Tobacco Use Types [...] to pre op appointment on 12/22/24 with [facility]. Appointment reminder letter mailed * Telephone Encounter - Himanshu Nolen - 12/05/2024 2:43 PM EST Date of Surgery: 12/29 Surgical procedure being done: Bilateral Upper Eyelid Surgery and Muscle Surgery Type of anesthesia: MAC Lab needed: Yes EKG: Yes Surgeon's name: Facility name: [facility]. Surgeon's office number: [phone] Surgeon's office fax number: [phone] Contact name (person you spoke with): Ness Last office note from surgeon requested: No Send Message to Dinora Rodriguez and Kevin Woods documented in this encounter Plan of Treatment Upcoming Encounters Date Type Department Care Team ([facility] st Contact Info) Description 04/19/2025 10:15 AM EDT Office Visit [facility] MED[facility] [address] [place] [address] Evi Thomson MD [address] [place] [phone] documented as of this encounter Goals Goal Patient Goal Type Associated Problems Recent Progress Patient-Stated? Author Blood Pressure < 140/90 Blood Pressure 130/66( 025 9:46 AM EST) No Valerio Sweet, PharmMckenna documented as of this encounter Visit Diagnoses Not on filedocumented in this encounter Care Teams Page Makeup System Operator Relationship Specialty Start Date End Date Evi Thomson MD [address] [place] [phone] PCP - General Family Medicine 03/13/19 Valerio Sweet, PharmD [address] [place] [phone] Pharmacist Internal Medicine 11/02/22 documented as of this encounter
[2025-03-26 07:24] LABS: MANUAL DIFF FLAG NO
[2025-03-26 07:43] LABS: Basophils Percent Auto 0.7 % (0-2); Eosinophils Absolute Auto 0.1 X10*3/uL (0.0-0.4); Eosinophils Percent Auto 2.9 % (0-4); Hematocrit 38.8 % (37.0-47.0); Hemoglobin 12.1 g/dl (12.0-16.0); Imm Gran Abs Auto 0.01 X10*3/uL (0.00-0.03); Imm Gran Pct Auto 0.2 % (0.0-0.4); Lymphocytes Absolute Auto 1.4 X10*3/uL (1.2-4.9); Lymphocytes Percent Auto 33.9 % (20-40); Mean Corpuscular HGB Conc 31.2 g/dl (31.0-35.0); Mean Corpuscular Hemoglobin 26.5 pg (27.0-33.0); Mean Corpuscular Volume 84.9 fL (80.0-98.0); Mean Platelet Volume 10.6 fL (9.4-12.3); Monocytes Absolute Auto 0.4 X10*3/uL (0.1-1.2); Monocytes Percent Auto 8.8 % (2-11); Neutrophils Absolute Auto 2.2 x10*3/uL (2.0-8.3); Neutrophils Percent Auto 53.5 % (45-73); Platelet Count 220 X10*3/uL (160-400); Red Blood Count 4.57 X10*6/uL (4.20-5.50); White Blood Count 4.2 X10*3/uL (4.8-10.8)
[2025-03-26 08:08] LABS: Calcium 9.4 mg/dL (8.4-10.2)
[2025-03-26 08:19] LABS: Anion Gap 12 (12-20); Blood Urea Nitrogen 22 mg/dL (9-16); Calcium 9.6 mg/dL (8.4-10.2); Carbon Dioxide 27 mmol/L (22-29); Chloride 107 mmol/L (96-108); Estimated Glomerular Filt Rate 45; Glucose Random 104 mg/dL (60-115); Potassium 5.4 mmol/L (3.3-5.1); Sodium 141 mmol/L (135-145)
[2025-03-26 08:29] LABS: Vitamin D 25-OH Total 42.9 ng/mL (>30)
[2025-03-26 08:31] LABS: Syphilis Screen Nonreactive (Nonreactive)
[2025-03-26 08:42] LABS: Folate 9.9 ng/mL (> or = 4.0); Vitamin B12 235 pg/mL (200-900)
== END 2025-03-26 07:11 | disposition home or self-care (01) ==
LOC: HO.LAB 07:10
PROVIDERS: PCP Internal Medicine; Visit Provider Internal Medicine Endocrinology, Diabetes & Metabolism
DX: M81.0 Age-related osteoporosis without current pathological fracture (principal); R41.840 Attention and concentration deficit
CPT/HCPCS: 36415; 80048; 82040; 82306; 82310; 82607; 82746; 85025; 86780

== ENCOUNTER 2025-03-29 09:47 | Outpatient (AMB) | payer MEDICARE, MEDICAID, SELFPAY ==
--- NOTE | 2025-03-29 09:54 | MHC.OFFVIS ---
Vital Signs 03/29/25 09:56 Height 4 ft 11.65 in Weight 142 lb 10.225 oz BMI 28.2 BP 122/58 L Blood Pressure Location Rt brachial Position Sitting Pulse 74 Pulse Source Pulse Oximeter Pulse Oximetry (%) 96 Oxygen Delivery Method Room Air Intake Visit Reasons: Toxic MNG and osteoporosis/prolia injection Intake Note: Patient present today for toxic MNG and Osteoporosis follow up visit. Sagger Soak Required: Yes Sagger Soak Language: Renal Dialysis Technician Services: Sagger Soak Offered & Declined Information Interpreted: non-clinical & clinical Accompanied by: Daughter Allergies No Known Allergies Allergy (Verified 03/29/25 09:57) Medication List - Last Reconciled 03/29/25 by Sarthak Reyes MD amlodipine 5 mg PO DAILY atorvastatin 20 mg PO DAILY benazepril 10 mg PO DAILY calcium carbonate (Oyster Shell Calcium 500) 500 mg PO DAILY 14 days cholecalciferol (vitamin D3) (Vitamin D3) 25 mcg PO DAILY denosumab (Prolia) 60 mg subcut [id number] gabapentin 100 mg PO BEDTIME latanoprost 0.005% 1 drp ophthalmic (eye) BEDTIME methimazole 2.5 mg (1/2 x 5 mg) PO DAILY ropinirole 1 mg (1/2 x 2 mg) PO BID HPI Comments Details: 84 YO F with 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 She was previously followed by Dr. Reyes from Endocrinology. She was last seen by him in 2006. She had a thyroid uptake and scan which revealed normal uptake, but in a heterogenous appearance in 2006. She had subclinical hyperthyroidism at that time. She subsequently had an US completed by Dr. Reyes 03/10/2007 which revealed no true nodules, only pseudonodules, so no biopsy was completed. She does report that after that time she saw an Buffing And Sueding Machine Operator in her home [place] of [facility] and did have a biopsy of the L lobe of the thyroid. She reports that this was benign. It is unclear which nodule was biopsied. She then had an US completed by her PCP here 09/14/19 which revealed multiple nodules bilaterally. There was mention of a L mid-upper pole 1.0 cm hypoechoic nodule, but the remainder were all subcentimeter. She was subsequently referred to Endocrinology. Images of this US were reviewed, and these nodules were felt to represent pseudonodules and not true nodules. No FNA biopsy was recommended. We did check full TFTs which revealed subclinical hyperthyroidism. She was started on Methimazole 2.5 mg PO daily given her age, and has tolerated treatment well without rash, frequent infection or jaundice. TSH has remained WNL. Her labs did reveal Calcium to be WNL but mild elevation of PTH. DEXA revealed severe Osteoporosis of the distal forearm, and Osteopenia at all other sites. 24 hour urine collection revealed very low calcium levels, indicating inadequate calcium intake. She was started on Calcium citrate 1 tab PO BID and remains on this now. PTH has now normalized. Denies any symptoms of hyper or hypothyroidism. Denies any family history of thyroid cancer. Denies any compressive symptoms currently. Thyroid US: 09/14/19 Right Thyroid Lobe: 5.9 x 2.1 x 2.1 cm, volume 13.6 mL. Previously 5.5 x 1.9 x 2.2 cm, volume 12.0 mL. Parenchyma: The gland echotexture is heterogeneous. Thyroid vascularity is increased. Left Thyroid Lobe: 5.4 x 1.4 x 2.4 cm, volume 9.5 mL. Previously 5.8 x 2.3 x 2.0 cm, volume 14.0 mL. Parenchyma: The gland echotexture is heterogeneous. Thyroid vascularity is increased. Isthmus: 1.0 cm in maximum AP dimension. Previously 1.1 cm. RIGHT THYROID LOBE: There are 3 nodules seen. 1. Location: Mid. Size: 1.1 x 0.7 x 0.9 cm. Previous: 0.8 x 0.9 x 0.8 cm. Nodule characteristics: Heterogeneous in echotexture and smoothly marginated. No calcification was present. There is intranodular vascular flow. 2. Location: Mid/lateral. Size: 0.7 x 0.6 x 0.6 cm. Previous: Not seen. Nodule characteristics: Heterogeneous and hyperechoic as with smooth margins. No calcifications identified. There is intranodular blood flow seen. 3. Location: Lower pole. Size: 1.6 x 1.4 x 1.3 cm. Previous: Not seen. Nodule characteristics: Heterogeneous in echotexture and smoothly marginated. Shadowing macrocalcification present. There is intranodular blood flow. ISTHMUS: 1. About the right superior isthmus there is a stable 0.6 x 0.4 x 0.7 cm hyperechoic and smoothly marginated nodule without calcification and with intranodular blood flow. Previously this measured 0.6 x 0.5 x 0.6 cm in size. 2. Location: Lower. Size: 1.1 x 0.7 x 0.9 cm. Previous: Not documented. Difficult to correlate on old study. Nodule characteristics: Heterogeneous in echotexture with smooth margins. No calcification seen. There is intranodular blood flow. 3. Location: Superior. Size: 1.1 x 0.7 x 0.8 cm. Previous: Not documented. Difficult to correlate on old study. Nodule characteristics: Heterogeneous in echotexture with smooth margins. Shadowing macrocalcification seen. There is intranodular blood flow. 4. Location: Lower. Size: 0.7 x 0.4 x 0.6 cm. Previous: Not documented. Difficult to correlate on old study. Nodule characteristics: Heterogeneous and hyperechoic with smooth margins. Shadowing macrocalcification seen. There is intranodular blood flow. LEFT THYROID LOBE: There are 2 nodules seen. 1. Location: Upper pole. Size: 0.7 x 0.3 x 0.7 cm. Previous: Not seen. Nodule characteristics: Heterogeneous in echotexture with smooth margins. No calcification is present. There is intranodular blood flow. 2. Location: Mid. Size: 0.6 x 0.5 x 0.5 cm. Previous: 0.8 x 0.5 x 0.6 cm. Nodule characteristics: Heterogeneous and hypoechoic in echotexture and partially cystic. Smooth margins. No calcification. There is intranodular blood flow present. NODES: No lymphadenopathy is seen in the tissue surrounding the thyroid gland. DEXA: 12/16/2022 FINDINGS: AP SPINE L1-L4: Current: BMD 0.982 g/cm2, Z-score 0.2, T-score -1.6, osteopenia, 5.0% decrease from baseline (<5% change is not significant). Baseline: BMD 1.034 g/cm2. LEFT FEMUR, NECK: Current: BMD 0.780 g/cm2, Z-score 0.4, T-score -1.9, osteopenia. Baseline: BMD 0.768 g/cm2. LEFT FEMUR, TOTAL: Current: BMD 0.873 g/cm2, Z-score 1.1, T-score -1.1, osteopenia, 0.8% decrease from baseline (<5% change is not significant). Baseline: BMD 0.880 g/cm2. RIGHT FOREARM RADIUS 33%: Current: BMD 0.654 g/cm2, Z-score 0.5, T-score -2.5, osteoporosis, 13.3% increase from baseline (<5% change is not significant). Baseline: BMD 0.577 g/cm2. Labs: Laboratory Tests 11/23/22 11/23/22 01/06/23 10:20 10:20 15:34 Sodium 138 139 Potassium 5.3 H 4.9 Creatinine 1.32 1.11 Estimated GFR 38 47 25-OH Vitamin D Total 46.5 TSH 1.17 Free T4 1.36 Total T3 115 PTH Intact 72 Calcium (PTH Intact) 9.4 currently on methimazole 2.5 mg q.d.. She received last Prolia injection on 09/18/2024. No fragility fx in past . On Prolia for 2 yr . Due for Prolia injection today The patient is an 84-year-old female presenting with osteoporosis, hyperthyroidism, elevated potassium levels, and associated involuntary leg movements. She is under ongoing treatment with Prolia, which she tolerates well, showing improved bone density. There has been no history of fractures. Involuntary leg movements have been noted; a primary care consultation and possibly a neurologist's evaluation have been suggested due to concerns over an underlying neurological issue. For hyperthyroidism, the patient is treated with methimazole and requires regular monitoring of thyroid function tests. Recent evaluations have suggested elevated potassium levels but continued monitoring due to her kidney disease, with communication advised with her spaghetti machine operator for further management. Potential advanced interventions for hyperthyroidism have been evaluated, given her age and current health conditions, but conservative management remains the favored approach. [facility] Medical History (Updated 09/04/24 @ 09:19 by Cora Maradiaga MD) Obstructive sleep apnea hypopnea, mild Restless legs syndrome (RLS) Hypersomnia Snoring Acute hyponatremia Osteoporosis Hypertensive emergency On beta april at home Vitamin D deficiency Goiter Hyperparathyroidism Subclinical hyperthyroidism Effusion, left knee Renal impairment High cholesterol Hypertension Left knee pain Surgical History H/O colonoscopy History of esophagogastroduodenoscopy (EGD) Hx of cataract extraction Hx of hysterectomy Family History Father No problems noted. Mother No problems noted. Social History Household Members: None Household Members Other:: lives with her daughter Housing: House Do you presently have visiting nurse or other home services: No Alcohol intake: never Patient Tobacco Use Status: Never used Tobacco service: No Current occupational status: unemployed Physical Exam Vital Signs: Last Vital Signs Pulse 74 03/29/25 09:56 BP 122/58 L 03/29/25 09:56 Pulse Ox 96 03/29/25 09:56 Oxygen Delivery Method Room Air 03/29/25 09:56 BMI result Body Mass Index 28.2 Const Other: Thyroid gland is larger in size weighs about 30 g. There is a nodular to palpation to the thyroid Office Meds Prolia 60 mg/mL subcutaneous syringe Performing Provider: Sarthak Reyes MD Performing Location: [facility] Administered by: Estefany Torre RN on 03/29/25 10:06 Dose Route Admin Location Dispensed Lot Number Expiration Date [facility] Dry Can Tender 60 mg subcut left upper arm 1 mL [id number] 06/14/27 30436-273-99 AMGEN Comments: Visit interpreted by daughter. Patient tolerated injection well and denies any problems with previous injection. They are aware of potassium level. Assessment & Plan Assessment & Plan (1) Osteoporosis: Code(s): M81.0 - Age-related osteoporosis without current pathological fracture Category: Medical Plan: This 83-year-old female with a history of osteoporosis and CKD stage IIIB. She is currently on Prolia 60 mg q.6 months for the past year. Would continue Prolia, calcium and vitamin-D supplementation. Due for Prolia injection today. Considering DEXA bone density improves on upcoming DEXA may consider transitioning to oral alendronate next visit 1. Osteoporosis Prolia will continue, given improved bone density and no fractures, with plans to reassess bone density before any transition. Kidney function will be monitored. 3. Elevated Potassium Levels Refer to her spaghetti machine operator for further evaluation on elevated potassium and potential intervention. . The patient had an opportunity to ask questions regarding treatment plan. The patient expressed understanding and agreement with the above treatment plan. Patient was informed and verbally consented to the use of an ambient scribe for clinic note documentation during this visit. (2) Subclinical hyperthyroidism: Code(s): E05.90 - Thyrotoxicosis, unspecified without thyrotoxic crisis or storm Category: Medical Plan: Clinically and biochemically euthyroid on 2.5 mg of methimazole. After careful discussion with the patient and her daughter fear hourly sign language interpreter guardian the options of treatment including continued use of methimazole, radioactive iodine and surgery, the patient daughter opting to stand the methimazole. She is currently biochemically and clinically euthyroid on 2.5 mg We will continue methimazole 2.5 mg 2. Hyperthyroidism Continue methimazole treatment and schedule thyroid level rechecks. Consider surgery or radioactive iodine only if current management fails, due to the patient's age and existing health. Orders: Orders AMB Denosumab Injection Practice Supplied Today M81.0 - Age-related osteoporosis without current pathological fracture Free T4 (Free Thyroxine) Today E05.90 - Thyrotoxicosis, unspecified without thyrotoxic crisis or storm Thyroid Stimulating Hormone Today E05.90 - Thyrotoxicosis, unspecified without thyrotoxic crisis or storm Triiodothyronine T3 Free Today E05.90 - Thyrotoxicosis, unspecified without thyrotoxic crisis or storm XR DEXA appendicular skeleton Today E21.3 - Hyperparathyroidism, unspecified, M81.0 - Age-related osteoporosis without current pathological fracture Medications: Refilled calcium carbonate (Oyster Shell Calcium 500) 500 mg PO DAILY 14 days 14 tabs 0RF cholecalciferol (vitamin D3) (Vitamin D3) 25 mcg PO DAILY 90 caps 1RF E55.9 - Vitamin D deficiency, unspecified Coding Level of Care Code Est Pt Level 3 (35992) Diagnoses Osteoporosis M81.0 Subclinical hyperthyroidism E05.90
[2025-03-29 09:56] VITALS: BP 122/58; PULSE 74; O2SAT 96; BMI 28.2
--- OUTSIDE RECORDS SUMMARY | 2025-03-29 10:39 | XMS_ITS | Encounter Summary ---
Author Organization [employer] [facility] Address [address] [place] [address] 7t [place] [address] Care Team Providers Care Candle Making Supervisor Name Role Phone Evi Thomson MD Primary Care Provider + Valerio Sweet PharmD Unavailable [phone] Encounter Details Date Type Department Care Team (Late st Contact Info) Description 10/06/2022 Abstract [facility] MEDICINE [address] [place] [phone] ProviderFuentes MD Social History Tobacco Use Types [...] [facility] [address] [place] [phone] Evi Thomson MD [address] [place] [address] documented as of this encounter Visit Diagnoses Not on filedocumented in this encounter Care Teams Candle Making Supervisor Relationship Specialty Start Date End Date Evi Thomson MD [address] [place] [address] [phone] PCP - General Family Medicine 4/29/19 Valerio Sweet, PharmD [address] [place] [address] Pharmacist Internal Medicine 11/02/22 documented as of this encounter
--- OUTSIDE RECORDS SUMMARY | 2025-03-29 10:39 | XMS_ITS | Encounter Summary ---
Author Organization [employer] Address [address] [facility] 7t [place] [address] Care Team Providers Care Pizza Hut Team Member Name Role Phone Evi Thomson MD Primary Care Provider + Valerio Sweet PharmD Unavailable [phone] Encounter Details Date Type Department Care Team ([facility] Contact Info) Description 10/16/2022 Orders Only [facility] MEDICINE [address] [place] [address] [phone] Evi Thomson MD [address] [place] [address] [phone] Social History Tobacco Use Types Packs/Day Years [...] Upcoming Encounters Date Type Department Care Team ([facility] Contact Info) Description 04/19/2025 10:15 AM EDT Office Visit [facility] MEDICINE [address] [place] [address] [phone] Evi Thomson MD [address] [place] [address] [phone] documented as of this encounter Visit Diagnoses Not on filedocumented in this encounter Care Teams [employer] Team Member Relationship Specialty Start Date End Date Evi Thomson MD [address] [place] [address] PCP - General Family Medicine 03/13/19 Valerio Sweet, Karl [address] [place] [phone] Pharmacist Internal Medicine 11/02/22 documented as of this encounter
--- OUTSIDE RECORDS SUMMARY | 2025-03-29 10:39 | XMS_ITS | Encounter Summary ---
Author Organization [employer] Address [address] [facility] 7t [place] [address] Care Team Providers Care Milling Machine Operator Name Role Phone Evi Thomson MD Primary Care Provider + Valerio Sweet PharmD Unavailable [phone] Encounter Details Date Type Department Care Team (Late st Contact Info) Description 03/26/2025 Orders Only GENERIC EXTERNAL DATA DEPARTMENT Provider, Generic External Data Social History Tobacco Use Types Packs/Day Years [...] Description 04/19/2025 10:15 AM EDT Office Visit [facility] MEDICINE [address] [place] [address] Evi Thomson MD [address] [place] [address] documented as of this encounter Goals Goal Patient Goal Type Associated Problems Recent Progress Patient-Stated? Author Blood Pressure < 140/90 Blood Pressure 130/66( 025 9:46 AM EST) No Valerio Sweet, NickiD documented as of this encounter Procedures Procedure Name Priority Date/Time Associated Diagnosis Comments CALCIUM Routine 03/26/2025 7:22 AM EDT documented in this encounter Results * Calcium (03/26/2025 7:22 AM EDT) Calcium 9.4 8.4 - 10.2 mg/dL [facility] 03/26/2025 7:22 AM EDT 03/26/2025 7:22 AM EDT us Generic External Data Provider LAB BLOOD ORDERAB LES Final Result [facility] [address] [place] [phone] documented in this encounter Visit Diagnoses Not on filedocumented in this encounter Care Teams Milling Machine Operator Relationship Specialty Start Date End Date Evi Thomson MD [address] [place] [address] PCP - General Family Medicine 03/13/19 Valerio Sweet, NickiD [address] [place] [address] Pharmacist Internal Medicine 11/02/22 documented as of this encounter
--- OUTSIDE RECORDS SUMMARY | 2025-03-29 10:39 | XMS_ITS | Encounter Summary ---
Author Organization [employer] Address 75 [facility] 7t [place] [address] Care Team Providers Care Seed Tester Name Role Phone Evi Thomson MD Primary Care Provider + Valerio Sweet PharmD Unavailable [phone] Reason for Visit * Reason Comments Med Refill Encounter Details Date Type Department Care Team ([facility] st Contact Info) Description 05/14/2024 Refill [facility] MED[facility]INE [address] [place] [address] Amrita Alfred FNP [address] [place] [address] Social History Tobacco Use Types Packs/Day Years [...] 10:15 AM EDT Office Visit [facility] MEDICINE [address] [place] [address] Evi Thomson MD [address] [place] [address] documented as of this encounter Goals Goal Patient Goal Type Associated Problems Recent Progress Patient-Stated? Author Blood Pressure < 140/90 Blood Pressure 130/66( 025 9:46 AM EST) No Valerio Sweet, Karl documented as of this encounter Visit Diagnoses Not on filedocumented in this encounter Care Teams Seed Tester Relationship Specialty Start Date End Date Evi Thomson MD [address] [place] [phone] PCP - General Family Medicine 03/13/19 Valerio Sweet, PharmD [address] [place] [phone] Pharmacist Internal Medicine 11/02/22 documented as of this encounter
--- OUTSIDE RECORDS SUMMARY | 2025-03-29 10:39 | XMS_ITS | Encounter Summary ---
Author Organization [employer] Address [address] [facility] 7t [place] [address] Care Team Providers Care School Psychology Professor Name Role Phone Evi Thomson MD Primary Care Provider + Valerio Sweet PharmD Unavailable Reason for Visit * Reason Onset Date Comments pre op 12/05/2024 Encounter Details Date Type Department Care Team (Late st Contact Info) Description 12/05/[address] [facility] MEDICINE [address] [place], [place] [phone] Evi Thomson MD [address] [place], [place] [phone] pre op Social History Tobacco Use Types [...] to pre op appointment on 12/22/24 with [place]. Appointment reminder letter mailed * Telephone Encounter - Himanshu Nolen - 12/05/2024 2:43 PM EST Date of Surgery: 12/29 Surgical procedure being done: Bilateral Upper Eyelid Surgery and Muscle Surgery Type of anesthesia: MAC Lab needed: Yes EKG: Yes Surgeon's name: Facility name: [facility]. Surgeon's office number: [phone] Surgeon's office fax number: [phone] Contact name (person you spoke with): Ness Last office note from surgeon requested: No Send Message to Dinora Rodriguez and Kevin Woods documented in this encounter Plan of Treatment Upcoming Encounters Date Type Department Care Team ([facility] st Contact Info) Description 04/19/2025 10:15 AM EDT Office Visit [facility]ICINE [address] [place] [address] Evi Thomson MD [address] [place] [address] documented as of this encounter Goals Goal Patient Goal Type Associated Problems Recent Progress Patient-Stated? Author Blood Pressure < 140/90 Blood Pressure 130/66( 025 9:46 AM EST) No Valerio Sweet, PharmMckenna documented as of this encounter Visit Diagnoses Not on filedocumented in this encounter Care Teams School Psychology Professor Relationship Specialty Start Date End Date Evi Thomson MD [address] [place] [phone] PCP - General Family Medicine 03/13/19 Valerio Sweet, PharmD [address] [place] [address] Pharmacist Internal Medicine 11/02/22 documented as of this encounter
--- OUTSIDE RECORDS SUMMARY | 2025-03-29 10:39 | XMS_ITS | Encounter Summary ---
Author Organization [employer] Address 75 [facility] 7t [place] [address] Care Team Providers Care Breaster Name Role Phone Evi Thomson MD Primary Care Provider + Valerio Sweet PharmD Unavailable [phone] Reason for Visit * Reason Comments Med Refill Encounter Details Date Type Department Care Team (Late st Contact Info) Description 04/12/2024 Refill [facility] MEDICINE [address] [place], [place] [phone] Evi Thomson MD 230 [place], [place] [phone] Postherpetic neuralgia Social History Tobacco Use Types [...] Description 04/19/2025 10:15 AM EDT Office Visit [facility] MED[facility]INE [address] [place] [address] Evi Thomson MD [address] [place] [address] documented as of this encounter Goals Goal Patient Goal Type Associated Problems Recent Progress Patient-Stated? 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
--- OUTSIDE RECORDS SUMMARY | 2025-03-29 10:39 | XMS_ITS | Clinical Summary ---
Author Organization [employer] [facility] beds at the [facility] Address [address] [place] [address] Care Team Providers Care Tour Operator Name Role Phone Evi Thomson MD Primary Care Provider [phone] Medications No known medications Active Problems No [...] age to complete this topic Care Teams Tour Operator Relationship Specialty Start Date End Date Evi Thomson MD [address] [place] [phone] PCP - General Family Medicine 09/03/23
--- OUTSIDE RECORDS SUMMARY | 2025-03-29 10:39 | XMS_ITS | Encounter Summary ---
Author Organization [facility] Address [address] [facility] [address] [place] [address] Phone Care Team Providers Care Botanical Technical Officer Name Role Phone Evi Thomson MD Primary Care Provider [phone] Encounter Details Date Type Department Care Team (Late Contact Info) Description 02/11/2021 Orders Only [facility] [address] [facility] [address] [place] [address] ProviderFuentes MD [address] [place] [address] Social History Tobacco Use Types Packs/Day [...] Visit [facility] [address] [place] [phone] Rikki Pratt MD [address] [facility] [address] [place] [address] documented as of this encounter Procedures Procedure Name Priority Date/Time Associated Diagnosis Comments EXT RESULT ENTRY Routine 02/11/2021 documented in this encounter Results * EXT RESULT ENTRY (02/11/2021) us Historical Provider LAB BLOOD ORDERABLES Clara l Result documented in this encounter Visit Diagnoses Not on filedocumented in this encounter Care Teams Botanical Technical Officer Relationship Specialty Start Date End Date Evi Thomson MD [address] [place] [phone] PCP - General 11/25/20 documented as of this encounter
--- OUTSIDE RECORDS SUMMARY | 2025-03-29 10:39 | XMS_ITS | Encounter Summary ---
Author Organization [employer] Address [address] [facility] 7t [place] [address] Care Team Providers Care Blind Stitch Machine Operator Name Role Phone Evi Thomson MD Primary Care Provider + Valerio Sweet PharmD Unavailable [phone] Reason for Visit * Reason Comments Med Refill Encounter Details Date Type Department Care Team ([facility] st Contact Info) Description 07/05/2024 Refill [facility] MEDICINE [address] [place], [place] [phone] Evi Thomson MD 230 [place], [place] [phone] Allergic rhinitis due to other allergic trigger, [...] Description 04/19/2025 10:15 AM EDT Office Visit [facility] MEDICINE [address] [place] [address] Evi Thomson MD [address] [place] [address] documented as of this encounter Goals Goal Patient Goal Type Associated Problems Recent Progress Patient-Stated? Author Blood Pressure < 140/90 Blood Pressure 130/66( 025 9:46 AM EST) No Valerio Sweet, Karl documented as of this encounter Visit Diagnoses Diagnosis Allergic rhinitis due to other allergic trigger, unspecified seasonality documented in this encounter Care Teams Blind Stitch Machine Operator Relationship Specialty Start Date End Date Evi Thomson MD [address] [place] [address] [phone] PCP - General Family Medicine 03/13/19 Valerio Sweet PharmD [address] [place] [phone] Pharmacist Internal Medicine 11/02/22 documented as of this encounter
--- OUTSIDE RECORDS SUMMARY | 2025-03-29 10:39 | XMS_ITS | Encounter Summary ---
Author Organization [employer] Address [address] [facility] 7t [place] [address] Care Team Providers Care Faro Dealer Name Role Phone Evi Thomson MD Primary Care Provider + Valerio Sweet PharmD Unavailable Reason for Visit * Reason Onset Date Comments HDF/Triage 01/07/2023 Encounter Details Date Type Department Care Team (Late st Contact Info) Description 01/07/2023 Telephone [facility] MEDICINE [address] [place] [address] Evi Thomson MD 230 [place], [place] [phone] HDF/Triage Social History Tobacco Use Types Packs/Day [...] HDF follow up appointment. Patient hospitalized at [facility] . Patient was admitted on 01/06/2023 and discharged on same day. Patient was advised will forward to triage nurse for follow up and appointment scheduling. Please contact pt son in law on [phone] documented in this encounter Plan of Treatment Upcoming Encounters Date Type Department Care Team (Late st Contact Info) Description 04/19/2025 10:15 AM EDT Office Visit [facility] MED[facility]INE [address] [place] [address] Evi Thomson MD [address] [place] [address] documented as of this encounter Visit Diagnoses Not on filedocumented in this encounter Care Teams Faro Dealer Relationship Specialty Start Date End Date Evi Thomson MD [address] [place] [phone] PCP - General Family Medicine 03/13/19 Valeroi Sweet, NickiD [address] [place] [phone] Pharmacist Internal Medicine 11/02/22 documented as of this encounter
--- OUTSIDE RECORDS SUMMARY | 2025-03-29 10:39 | XMS_ITS | Encounter Summary ---
Author Organization [employer] Address [address] [facility] 7t [place] [address] Care Team Providers Care Test Deck Supervisor Name Role Phone Eiv Thomson MD Primary Care Provider + Valerio Sweet PharmD Unavailable [phone] Encounter Details Date Type Department Care Team (Late st Contact Info) Description 08/10/2024 Telephone [facility] MEDICINE [address] [place], [place] [phone] Evi Thomson MD [address] [place], [place] [phone] Social History Tobacco Use Types Packs/Day Years [...] Office Visit [facility] MEDICINE [address] [place] [address] Eiv Thomson MD [address] [place] [address] documented as of this encounter Goals Goal Patient Goal Type Associated Problems Recent Progress Patient-Stated? Author Blood Pressure < 140/90 Blood Pressure 130/66( 025 9:46 AM EST) No Valerio Sweet PharmD documented as of this encounter Visit Diagnoses Not on filedocumented in this encounter Care Teams Test Deck Supervisor Relationship Specialty Start Date End Date Evi Thomson MD [address] [place] [address] PCP - General Family Medicine 03/13/19 Valerio Sweet PharmD [address] [place] [phone] Pharmacist Internal Medicine 11/02/22 documented as of this encounter
--- OUTSIDE RECORDS SUMMARY | 2025-03-29 10:39 | XMS_ITS | Clinical Summary ---
Author Organization [employer] Address [address] [facility] 7[address] [place] [address] Care Team Providers Care Assistant Child Care Teacher Name Role Phone Evi Thomson MD Primary Care Provider + Valerio Sweet PharmD Unavailable [phone] Allergies No known active allergies Medications methIMAzole (Tapazole) 5 MG tablet Take 0.5 tablets by mouth 1 (one) time each day. Active Elastic Bandages & Supports (B & B Knee Brace/Supports) [facility] 020 Active Blood Pressure Monitoring (Omron 3 [...] house keeping), will refer for evaluation of SCRIPT DEVELOPER - dicussed with pt regarding risk of [...] and could be referred to [facility]) - will f/u next visit [...] AM EDT): Pt will be traveling to [facility] for the for her child. Prescription for [...] visit. RBS wnl Will reschedule appointment w/ cleaning validation consultant when she returns form her trip from [facility] Fu 4-6 m Assessment & Plan (09/09/2023 9:44 AM EDT): Controlled. A1c is at goal. Encourage to remain hydrated at all times and I will refer to cleaning validation consultant, counseled re more frequent low calorie/carb meals. [...] Encounters Date Type Department Care Team Description 03/26/2025 Orders Only GENERIC EXTERNAL DATA DEPARTMENT Provider, Generic External Data 02/12/2025 10:00 AM EDT Office Visit [facility] OPTOMETRY [address] [place] [address] Aries, Aria, OD Primary open angle glaucoma of both eyes, unspecified glaucoma stage (Primary Dx); Meibomian gland disease of both eyes, unspecified eyelid; PCO (posterior capsular opacification), bilateral; S/p bilateral blepharoplasty; Presbyopia 02/12/2025 Telephone [facility] MEDICINE [address] [place] [address] Evi Thomson MD Care Coordination 02/12/2025 Travel 01/26/2025 Population Health Risk Score [facility] Department [address] [place] [phone] Provider, Population Health Generic 01/25/2025 Refill [facility] MEDICINE [address] [place] [address] Evi Thomson MD Hypertension, unspecified type 01/04/2025 Telephone [facility] MEDICINE [address] [place], [place] [phone] Evi Thomson MD May recall 12/30/2024 Refill [facility] MEDICINE [address] [place] [address] Evi Thomson MD Benign hypertension from Last 3 Months Immunizations Immunization Administration Dates Next Due Influenza High-dose Quadriva [...] 10:15 AM EDT Office Visit [facility] MEDICINE [address] [place] [address] Evi Thomson MD [address] [place], [place] [phone] Health Maintenance Due Date Last Done Comments [...] patient's age to complete this topic Meningococcal B Vaccine Aged Out No l onger eligible based on patient's age to complete [...] Comments CALCIUM Routine 03/26/2025 7:22 AM EDT CBC WITH AUTO DIFFERENTIAL Routine 03/26/2025 7:22 AM EDT Decreased attention Span SYPHILIS SCREEN Routine 03/26/2025 7:22 AM EDT Decreased attention Span VITAMIN B12/FOLATE, SERUM PANEL Routine 03/26/2025 7:22 AM EDT Decreased attention Span OPTIC DISC PHOTOS - OU - BOTH EYES Routine 02/12/2025 10:00 AM EDT Primary open angle glaucoma of both eyes, unspecified glaucoma stage LIPID PANEL, STANDARD Routine 12/25/2024 10:29 AM EST Prediabetes Primary hypertension POCT GLYCATED HEMOGLOBIN, TOTAL Routine 12/25/2024 10:18 AM EST Prediabetes from Last 3 Months or Most Recently Relevant to Health Maintenance Results * Syphilis Screen (03/26/2025 7:22 AM EDT) Syphilis Screen Nonreactive Nonreactive [facility] Blood 03/26/2025 7:22 AM EDT 03/26/2025 7:22 AM EDT Evi Thomson MD LAB BLOOD ORDERABLES Fin al Result Performing Organization Address [facility]/ZIP Co de Phone Number [facility] [address] [place] [address] [phone] * Vitamin B12/Folate, Serum Panel (03/26/2025 7:22 AM EDT) Vitamin B12 235 200 - 900 pg/mL [facility] Comment:NORMAL 200-900 PG/ML INDETERMINATE 160-199 PG/ML DEFICIENT < 160 PG/ML Folate 9.9 > or = 4.0 ng/mL [facility] Comment:Reference Values:> o r = 4.0 ng/mL< 4.0 ng/mL suggests folate deficiency Methotrexate, aminopterin and folinic acid(leucovorin) are chemotherapeutic agents whose molecularstructures are similar to folate; therefore, the Architectfolate assay cannot be used for patients using these drugs. Blood Venous blood specimen / Unknown 03/26/2025 7:22 AM EDT 03/26/2025 7:22 AM EDT Evi Thomson MD LAB BLOOD ORDERABLES Fin al Result Performing Organization Address [facility] Co de Phone Number [facility] [address] [place] [address] [phone] * (ABNORMAL) CBC auto differential (03/26/2025 7:22 AM EDT) White Blood Count 4.2(L) 4.8 - 10.8 X10*3/uL [facility] Red Blood Count 4.57 4.20 - 5.50 X10*6/uL [facility] Hemoglobin 12.1 12.0 - 16.0 g/dl [facility] Hematocrit 38.8 37.0 - 47.0 % [facility] Mean Corpuscular Volume 84.9 80.0 - 98.0 fL [facility] Mean Corpuscular Hemoglobin 26.5(L) 27.0 - 33.0 pg [facility] Mean Corpuscular HGB Conc 31.2 31.0 - 35.0 g/dl [facility] Red Cell Distribution Width 14.0 11.0 - 16.0 % [facility] Platelet Count 220 160 - 400 X10*3/uL [facility] Mean Platelet Volume 10.6 9.4 - 12.3 fL [facility] Neutrophils Percent Auto 53.5 45 - 73 % [facility] Imm Gran Pct Auto 0.2 0.0 - 0.4 % [facility] Lymphocytes Percent Auto 33.9 20 - 40 % [facility] Monocytes Percent Auto 8.8 2 - 11 % [facility] Eosinophils Percent Auto 2.9 0 - 4 % [facility] Basophils Percent Auto 0.7 0 - 2 % [facility] NRBC Pct Auto 0.0 0.0 - 0.2 /100WBC [facility] Neutrophils Absolute Auto 2.2 2.0 - 8.3 x10*3/uL [facility] Imm Gran Abs Auto 0.01 0.00 - 0.03 X10*3/uL [facility] Lymphocytes Absolute Auto 1.4 1.2 - 4.9 X10*3/uL [facility] Monocytes Absolute Auto 0.4 0.1 - 1.2 X10*3/uL [facility] Eosinophils Absolute Auto 0.1 0.0 - 0.4 X10*3/uL [facility] Basophils Absolute Auto 0.0 0.0 - 0.2 X10*3/uL [facility] NRBC Abs Auto 0.000 0.0 - 0.012 X10*3/uL [facility] Blood Venous blood specimen / Unknown 03/26/2025 7:22 AM EDT 03/26/2025 7:22 AM EDT us Evi Thomson MD LAB BLOOD ORDERABLES Fin al Result Performing Organization Address City/[facility]/ZIP Co de Phone Number [facility] [address] [place] [address] [phone] * Calcium (03/26/2025 7:22 AM EDT) Calcium 9.4 8.4 - 10.2 mg/dL [facility] 03/26/2025 7:22 AM EDT 03/26/2025 7:22 AM EDT us Generic External Data Provider LAB BLOOD ORDERAB LES Final Result Performing Organization Address [facility] Co de Phone Number [facility] [address] [place] [address] [phone] * Optic Disc Photos - OU - Both Eyes (02/12/2025 10:00 AM EDT) Narrative Aria Chris, OD - 02/23/2025 1:38 PM EDT Images [...] today's notes to them for their records. us Arai Chris OD OPHTH PHOTOGRAPHY Final Resul t * (ABNORMAL) Lipid Panel, Standard (12/25/2024 10:29 AM EST) Triglycerides 322(H) <150 mg/dL [facility] Comment:Slight Lipemia.Amber able Triglyceride: less than 150 mg/dLBorderline High Triglyceride 150-199 mg/dLHigh Triglyceride: 200-499 mg/dLVery High Triglyceride: greater than or equal to 5OO mg/dL Cholesterol 123 <200 mg/dL [facility] Comment:Desirable Cholestero l: less than 200 mg/dLBorderline High Cholesterol: 200-239 mg/dLHigh Cholesterol: greater than 239 mg/dL LDL Cholesterol Calculated 27 <100 mg/dL [facility] Comment:Desirable LDL: less than 100 mg/dLNear Optimal/Above Optimal LDL: 110- 129 mg/dLBorderline High LDL: 130-159 mg/dLHigh LDL: 160-189 mg/dLVery High LDL: greater than or equal to 190 mg/dL HDL Cholesterol 32(L) >40 mg/dL [facility] Comment:Desirable HDL: great er than 40 mg/dL Note: This HDL assay may give artificially low results in patients with liver disease. Blood Venous blood specimen / Unknown 12/25/2024 10:29 AM EST 12/25/2024 1:59 PM EST Duyen Schwab MD LAB BLOOD ORDERABLES Final Resul t [facility] [address] [place] [phone] * (ABNORMAL) POCT A1C (12/25/2024 10:18 AM EST) Hemoglobin A1C 5.8 4.0 - 6.0 % QC Media Lot # Comment:[id number] Lot# Expiration Date Comment:09/01/2026 Blood 12/25/2024 10:1 8 AM EST Duyen Schwab MD POINT OF CARE TEST ENTER/EDIT OR DERABLES Final Result from Last 3 Months or Most Recently Relevant to Health Maintenance Insurance [facility] STANDARD [place] [phone] Care Teams Assistant Child Care Teacher Relationship Specialty Start Date End Date Evi Thomson MD [address] [place] [address] PCP - General Family Medicine 03/13/19 Valerio Sweet, NickiD [address], [place] Pharmacist Internal Medicine 11/02/22
--- OUTSIDE RECORDS SUMMARY | 2025-03-29 10:39 | XMS_ITS | Clinical Summary ---
Author Organization [facility] Address [address] [place] [phone] Phone Care Team Providers Care Certification And Selection Specialist Name Role Phone Evi Thomson MD Primary Care Provider [phone] Allergies No known active allergies Medications atorvastatin [...] Visit [facility] [address] [place] [phone] Rikki Pratt MD [address] [facility] [address] [place] [phone] Health Maintenance Due Date Last Done Comments Influenza Vaccine (Season Ended) 2025 10/28/2021, 08/24/2019 Pneumococcal Vaccine: 50+ Years Completed 04/04/2024 Pneumococcal Vaccine: Peds (0 to 5 Years) and At-Risk Patients (6 to 49 Years) Discontinued 04/04/2024 Hepatitis B Vaccine Aged Out No longe r eligible based on patient's age to complete this topic Insurance Medicaid [place] Medicare Care Teams Certification And Selection Specialist Relationship Specialty Start Date End Date Eiv Thomson MD [address] [place] [address] PCP - General 11/25/20
--- OUTSIDE RECORDS SUMMARY | 2025-03-29 10:39 | XMS_ITS | Encounter Summary ---
Author Organization [employer] Address [address] [facility] 7[address] [place] [address] Care Team Providers Care Proctologist Name Role Phone Evi Thomson MD Primary Care Provider + Valerio Sweet PharmD Unavailable [phone] Reason for Visit * Reason Comments Med Refill Encounter Details Date Type Department Care Team (Late st Contact Info) Description 08/12/2024 Refill [facility] MEDICINE [address] [place], [place] [phone] Evi Thomson MD [address] [place], [place] [phone] Allergic rhinitis due to other allergic trigger, [...] 10:15 AM EDT Office Visit [facility] MEDICINE [address] [place] [phone] Evi Thomson MD [address] [place] [phone] documented as of this encounter Goals Goal Patient Goal Type Associated Problems Recent Progress Patient-Stated? Author Blood Pressure < 140/90 Blood Pressure 130/66( 025 9:46 AM EST) No Valerio Sweet PharmD documented as of this encounter Visit Diagnoses Diagnosis Allergic rhinitis due to other allergic trigger, unspecified seasonality documented in this encounter Care Teams Proctologist Relationship Specialty Start Date End Date Evi Thomson MD [address] [place] [phone] PCP - General Family Medicine 03/13/19 Valerio Sweet PharmD [address] [place] [phone] Pharmacist Internal Medicine 11/02/22 documented as of this encounter
--- OUTSIDE RECORDS SUMMARY | 2025-03-29 10:39 | XMS_ITS | Encounter Summary ---
Author Organization [employer] Address [address] [facility] 7t [place] [address] Care Team Providers Care Parts Processor Name Role Phone Evi Thomson MD Primary Care Provider + Valerio Sweet PharmD Unavailable [phone] Encounter Details Date Type Department Care Team (Late st Contact Info) Description 11/24/[address] [facility] MED[facility] [address] [place], [place] [phone] Evi Thomson MD [address] [place], [place] [phone] Hyperkalemia (Primary Dx) Social History Tobacco Use [...] hyperkalemia. Please call renal and ask that provider relations representative calls me back to discuss hyperkalemia and possibility of lokelma or changing meds documented in this encounter Plan of Treatment Upcoming Encounters Date Type Department Care Team (Late st Contact Info) Description 04/19/2025 10:15 AM EDT Office Visit [facility] MED[facility] [address] [place], [place] [phone] Evi Thomson MD [address] [place], [place] [phone] documented as of this encounter Procedures Procedure Name Priority Date/Time Associated Diagnosis Comments POTASSIUM Routine 11/27/2022 8:47 AM EST Hyperkalemia documented in this encounter Results * Potassium (11/27/2022 8:47 AM EST) Potassium 5.1 3.5 - 5.3 mmol/L [employer] [facility] Blood Venous blood specimen / Unknown 11/27/2022 8:47 AM EST 11/27/2022 8:48 AM EST Narrative [facility] - 11/27/2022 8:46 PM EST FASTING:YES FASTING: YES us Evi Thomson MD LAB BLOOD ORDERABLES Fin al Result [facility] [address] [facility], [place] [address] [employer] [place] [employer] [address] [facility], ([address]) [place] [phone] documented in this encounter Visit Diagnoses Diagnosis Hyperkalemia- Primary Hyperpotassemia documented in this encounter Care Teams Parts Processor Relationship Specialty Start Date End Date Evi Thomson MD [address] [place] [address] PCP - General Family Medicine 03/13/19 Valerio Sweet, NickiD [address] [place] [address] Pharmacist Internal Medicine 11/02/22 documented as of this encounter
== END 2025-03-29 10:26 | disposition home or self-care (01) ==
LOC: HO.ENCR 09:48
PROVIDERS: PCP Internal Medicine; Visit Provider Internal Medicine Endocrinology, Diabetes & Metabolism
DX: M81.0 Age-related osteoporosis without current pathological fracture (principal); E05.90 Thyrotoxicosis, unspecified without thyrotoxic crisis or storm
CPT/HCPCS: 99213

== ENCOUNTER → 2025-03-29 09:47 | Outpatient (BNVA) | payer MEDICARE, MEDICAID, SELFPAY | PROVIDERS: PCP Internal Medicine; Visit Provider Internal Medicine Endocrinology, Diabetes & Metabolism | DX: M81.0 Age-related osteoporosis without current pathological fracture (principal); E05.90 Thyrotoxicosis, unspecified without thyrotoxic crisis or storm; E21.3 Hyperparathyroidism, unspecified; E55.9 Vitamin D deficiency, unspecified | CPT/HCPCS: 96372; 99212; J0897 ==

== ENCOUNTER 2025-04-06 13:07 | Outpatient (AMB) | payer MEDICARE, MEDICAID, SELFPAY ==
[2025-04-06 13:30] VITALS: BP 120/60; PULSE 65; O2SAT 95; BMI 28.6
--- NOTE | 2025-04-06 13:30 | A.OFFVIS_ITS ---
Vital Signs 04/06/25 13:30 Height 4 ft 11 in Weight 141 lb 6 oz BMI 28.6 BP 120/60 Blood Pressure Location Lt brachial Position Sitting Pulse 65 Pulse Source Pulse Oximeter Pulse Oximetry (%) 95 Oxygen Delivery Method Room Air Intake Visit Reasons: Follow Up 6mo Intake Note: Patient presents follow up RLS/LASHON. Compliance in chart(84/90 days, >=4hrs- 83days, Median pressure-11.2, Median Leaks-16.9, AHI-1.9) Patient states that the medication has not been as effective within the last 30 days, signs of seizure symptoms presented on the flight back home ([facility]) from [place], symptoms have increased to pain in both leg extremities and finger tips and bilateral side as well from the waist to feet. Parking Line Painter Required: Yes Parking Line Painter Services: Parking Line Painter Offered & Declined Parking Line Painter Name: Daughter Information Interpreted: non-clinical & clinical Ribbon Lap Machine Tender: Ribbon Lap Machine Tender Present Accompanied by: Daughter Allergies No Known Allergies Allergy (Verified 04/06/25 13:40) HPI Comments Details: 84 y/o Barbadian speaking F comes for follow up of LASHON and RLS. She is accompanied by her daughter who helps with history. LASHON compliance report 12/2024-03/2025 >4 hours 83 days and 92% Avg use total 7 hours 53min APAP [id number] AHI 1.9/hr She recently returned from [place]. Her legs start to bother her in the afternoon and the soles get very hot as if on fire. She did well with ropinirole XR 2mg q4 pm and and again at 8pm, she also takes gabapentin 100mg qhs at 9pm. She is compliant on CPAP, has started using her machine daily and for more than 8 hours a night. We reviewed labs today and will evaluate her Ferritin and Iron panel, we also discussed daily need for exercise wearing good shoes with memory foam insoles and using a hiking stick in both hands when she walks. Her memory is poor at baseline, she needs redirection with many task, daughter visits her daily at the prison facility. RLS of the leg cramps, numbness, tingling and paces the floors. Has difficulty sleeping. Denies history of DVTs or Seizure. [facility] Medical History Obstructive sleep apnea hypopnea, mild Restless legs syndrome (RLS) Hypersomnia Snoring Acute hyponatremia Osteoporosis Hypertensive emergency On beta april at home Vitamin D deficiency Goiter Hyperparathyroidism Subclinical hyperthyroidism Effusion, left knee Renal impairment High cholesterol Hypertension Left knee pain Surgical History H/O colonoscopy History of esophagogastroduodenoscopy (EGD) Hx of cataract extraction Hx of hysterectomy Family History Father No problems noted. Mother No problems noted. Social History Household Members: None Household Members Other:: lives with her daughter Housing: House Do you presently have visiting nurse or other home services: No Alcohol intake: never Patient Tobacco Use Status: Never used Tobacco service: No Current occupational status: unemployed Physical Exam Vital Signs: Last Vital Signs Pulse 65 04/06/25 13:30 BP 120/60 04/06/25 13:30 Pulse Ox 95 04/06/25 13:30 Oxygen Delivery Method Room Air 04/06/25 13:30 BMI result Body Mass Index 28.6 Const General: cooperative and no acute distress Nutritional Appearance: overweight Orientation/consciousness: patient oriented x3 HEENT Face and sinus: Yes face symmetric Teeth and gingiva: other Eyes Pupils: Equal, round and reactive pupils present Neck Neck: Yes full ROM Resp Effort & Inspection: normal respiratory effort and able to speak in complete sentences Neuro General: patient oriented x3 and moves all extremities Cranial nerves: Yes Facial sensation intact/muscles of mastication intact, Yes Equal, round and reactive pupils present, Yes Normal accommodation reflex present, Yes Normal facial strength present, Yes Midline tongue present, Yes Ability to bilaterally rotate head present and Yes Ability to bilaterally elevate shoulders present Gait exam (Neuro): Antalgic gait present Motor exam (neuro): 5/5 motor strength present throughout and Normal motor muscle tone present throughout Psych Appearance: grossly normal Thought process: Normal thought process present Thought content: Normal thought content present Results Reviewed Results Reviewed: LASHON compliance report 12/2024-03/2025 >4 hours 83 days and 92% Avg use total 7 hours 53min APAP [id number] AHI 1.9/hr Assessment & Plan Assessment & Plan (1) Restless legs syndrome (RLS): Code(s): G25.81 - Restless legs syndrome Category: Medical (2) Obstructive sleep apnea hypopnea, mild: Code(s): G47.33 - Obstructive sleep apnea (adult) (pediatric) Category: Medical Plan Continue CPAP as patient continues to have refreshed sleep. RLS continue Ropinirole XR 2mg q 4 pm and I will increase the gabapentin to 200mg qhs. Start using magnilife topically as needed for RLS, may start pedal bike for 5-10min daily as tolerable and swimming for 5-15min if possible. May start taking magnesium 100-200mg daily at bedtime. May start taking B12 daily in the morning for neuropathy of the feet. Will consider EMG / NCS in the future. MMSE at next appt. F/u in 3 months for assesment of cognitive decline. Patient Instructions: Sleep Hygiene provided: set a scheduled bedtime and wake time to help regulate the circadian rhythm and balance the release of pituitary hormones. Sleep in a dark room, temperatures below 68 degrees, and no devices n bed. Limit caffeinated products 6 hours prior to bed, and limit fluids 2-4 hours prior to bed. Gentle night yoga, diffusing essential oils, and playing soft music can be relaxing. Coding Level of Care Code Est Pt Level 4 (15821) Diagnoses Restless legs syndrome (RLS) G25.81 Obstructive sleep apnea hypopnea, mild G47.33
== END 2025-04-06 15:02 | disposition home or self-care (01) ==
LOC: HO.HSMS 13:07
PROVIDERS: PCP Internal Medicine; Visit Provider Physician Assistant Medical
DX: G25.81 Restless legs syndrome (principal); G47.33 Obstructive sleep apnea (adult) (pediatric)
CPT/HCPCS: 99214

== ENCOUNTER → 2025-04-06 13:07 | Outpatient (BNVA) | payer MEDICARE, MEDICAID, SELFPAY | PROVIDERS: PCP Internal Medicine; Visit Provider Physician Assistant Medical | DX: G47.33 Obstructive sleep apnea (adult) (pediatric) (principal); G25.81 Restless legs syndrome; Z99.89 Dependence on other enabling machines and devices | CPT/HCPCS: 99212 ==

== ENCOUNTER 2025-04-19 11:13 | Outpatient (REF) | payer MEDICARE, MEDICAID, SELFPAY ==
--- OUTSIDE RECORDS SUMMARY | 2025-04-19 13:23 | XMS_ITS | Encounter Summary ---
Author Organization [email or web address] Address [address] [facility] 7t [place] [address] Care Team Providers Care Brown Sourer Name Role Phone Evi Thomson MD Primary Care Provider + Valerio Sweet PharmD Unavailable Encounter Details Date Type Department Care Team (Late st Contact Info) Description 08/10/2024 Telephone [facility] [address] [place], [place] [phone] Evi Thomson MD [address] [place], [place] [phone] Social History Tobacco Use Types Packs/Day Years [...] as of this encounter Plan of Treatment Not on file documented as of this encounter Goals Goal Patient Goal Type Associated Problems Recent Progress Patient-Stated? Author Blood Pressure < 140/90 Blood Pressure 128/60( 025 10:12 AM EDT) No Valerio Sweet, PharmD documented as of this encounter Visit Diagnoses Not on filedocumented in this encounter Care Teams Brown Sourer Relationship Specialty Start Date End Date Evi Thomson MD [address] [place] [address] PCP - General Family Medicine 03/13/19 Valerio Sweet, PharmD [address] [place] [address] Pharmacist Internal Medicine 11/02/22 documented as of this encounter
[2025-04-19 14:49] LABS: Albumin Level 4.1 g/dL (3.5-5.0); Anion Gap 11 (12-20); Blood Urea Nitrogen 26 mg/dL (9-16); Calcium 9.5 mg/dL (8.4-10.2); Carbon Dioxide 27 mmol/L (22-29); Chloride 104 mmol/L (96-108); Estimated Glomerular Filt Rate 40; Glucose Random 117 mg/dL (60-115); Potassium 4.6 mmol/L (3.3-5.1); Sodium 137 mmol/L (135-145)
[2025-04-19 15:12] LABS: Free T4 (Free Thyroxine) 0.96 ng/dL (0.71-1.85)
[2025-04-20 06:58] LABS: Triiodothyronine T3 Free 2.9 pg/mL (2.3-4.2)
== END 2025-04-19 11:14 | disposition home or self-care (01) ==
LOC: HO.HHCL 11:13
PROVIDERS: Internal Medicine Endocrinology, Diabetes & Metabolism; Visit Provider Internal Medicine
DX: M81.0 Age-related osteoporosis without current pathological fracture (principal); E05.90 Thyrotoxicosis, unspecified without thyrotoxic crisis or storm; E87.5 Hyperkalemia
CPT/HCPCS: 36415; 80048; 82040; 84439; 84443; 84481

== ENCOUNTER 2025-04-27 10:49 | Inpatient (IN) | payer MEDICARE, MEDICAID, SELFPAY ==
[2025-04-27] VITALS (7 sets, daily range): BP systolic 90–165; BP diastolic 49–70; PULSE 51–71; RESP 12–20; TEMP 36.1–36.5; O2SAT 93–98; BMI 26.1; BMI 29.1
--- NOTE | ~2025-04-27 | CT_ITS ---
EXAMINATION: CT LUMBAR SPINE WITHOUT CONTRAST CLINICAL INFORMATION: Atraumatic low back pain radiating to the left lower extremity. COMPARISON: None available. TECHNIQUE: Contiguous axial images through the cervical spine using 2 mm collimation with bone and soft tissue algorithm. Sagittal and coronal reformatted images on bone algorithm. DLP: [address] examination was performed using dose optimization techniques as appropriate, variously including the following: *Automated exposure control *Adjustment of mA and/or kV according to patient size (this includes techniques or standardized protocols for targeted exams where dose is matched to indication/reason for exam; i.e. extremities or head) *Use of iterative reconstruction technique FINDINGS: Limited by patient's motion artifact and body habitus. Osteopenia versus osteoporosis. Grade 1 anterolisthesis on a degenerative basis resulting in bilateral neuroforamina stenosis. Multilevel marginal osteophyte formation, small size. Endplate sclerosis at L5-S1 with decreased intervertebral disc height. Facet joint hypertrophy at L5-S1 and to a lesser extent L4-5. No acute cortical disruption. Sclerosis and vacuum phenomenon at the sacroiliac joints. Central spinal canal stenosis at L3-4, L4-5 and likely L5-S1 on a multifactorial basis. Numerous diverticula in the sigmoid colon. Calcified plaques in normal diameter abdominal aorta. Kidneys appear small without hydronephrosis or gross nephrolithiasis. Soft tissue fullness left adrenal gland. CT/CT lumbar spine wo IV con IMPRESSION: Multilevel lumbar spondylosis resulting in grade 1 anterolisthesis L5-S1 and central spinal canal stenosis from L3-4 to L5-S1 and bilateral neuroforamina stenosis at L5-S1 and L4-5 levels. Electronically signed by: Salvatore Sanchez MD 04/27/2025 02:47 PM EDT
--- NOTE | ~2025-04-27 | XR_ITS ---
EXAMINATION: XR HIP, LEFT CLINICAL INFORMATION: pain COMPARISON: None available. TECHNIQUE: AP pelvis, and 2 views of the left hip. FINDINGS: No fracture. Alignment is anatomic. Hip joint spaces are maintained. Soft tissues are unremarkable. Sacrum is intact. Mild arthritic changes in the SI joints and lower lumbar spine. XR/XR hip LT w PEL1V IMPRESSION: No acute bony abnormalities of the left hip or pelvis. Electronically signed by: Blue Suero MD 04/27/2025 01:44 PM EDT
--- NOTE | ~2025-04-27 | XR_ITS ---
EXAMINATION: XR LUMBOSACRAL SPINE CLINICAL INFORMATION: pain COMPARISON: None available. TECHNIQUE: Three views of the lumbosacral spine. FINDINGS: Grade 1 anterolisthesis at L5-S1 on a spondylolysis pars interarticularis. Multilevel marginal osteophyte formation and syndesmophyte formation involving the lower thoracic and upper lumbar spine. Multilevel endplate sclerosis. No acute cortical disruption. . XR/XR lumbar spine 2-3V IMPRESSION: Multilevel thoracolumbar spondylosis. 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
--- NOTE | 2025-04-27 11:41 | ED_ITS ---
HPI - Back Pain/Injury General Chief Complaint: Back Pain/Injury Stated Complaint: Back pain radiating to legs Time Seen by Provider: 04/27/25 11:55 Source: patient, family (daughter) and apparatus operator (Bahamian) Mode of arrival: ambulatory Limitations: language barrier (hebrew) History of Present Illness ED Provider: AYDE LUND PA-C HPI Narrative: 84 year old female with pmhx significant for HTN, HLD, subclinical hyperthyroidism on methimazole presents to the ED today with her daughter for evaluation of low back pain x2 weeks, worsening this morning. Pain starts in her low back and radiates down both LE (L>R). Admits to associated restless legs and tingling to both feet. Reports symptoms have been worsening over the last 2 weeks. Had difficulty getting out of bed this morning however was able to use a walker to ambulate to her daughter's vehicle. Denies injury, trauma or falls. Denies history of IV drug use. Denies history of spinal surgery. Denies saddle anesthesia. Denies bowel or bladder incontinence or retention. Denies numbness/weakness down the lower extremities. binder selector utilized throughout visit to communicate with patient. Related Data Home Medications ?Medication ?Instructions ?Recorded ?Confirmed atorvastatin 20 mg tablet 20 mg PO DAILY 08/29/2004/15 benazepril 10 mg tablet 10 mg PO DAILY 02/03/2304/15 Held on 04/30/25. Instructions: Resume on 05/09/25. hold lisinopril until repeat bmp ,start if bp allows. amlodipine 5 mg tablet 5 mg PO DAILY 07/19/2304/27 denosumab 60 mg/mL subcutaneous 60 mg subcut [id number] 08/18/24 04/27/25 syringe (Prolia) erythromycin 5 mg/gram (0.5 %) eye 1 cm ophthalmic (ey e) QID 04/27/25 04/27/25 ointment fluticasone propionate 50 1 spray intranasal DAILY 04/27/25 mcg/actuation nasal spray,suspension Previous Rx's ?Medication ?Instructions ?Recorded methimazole 5 mg tablet 2.5 mg (1/2 x 5 mg) PO DAILY #45 09/11/24 tabs ropinirole 2 mg tablet 1 mg (1/2 x 2 mg) PO BID #30 tabs 02/12/25 cholecalciferol (vitamin D3) 25 25 mcg PO DAILY #90 ca ps 03/29/25 mcg (1,000 unit) capsule (Vitamin D3) acetaminophen 325 mg tablet 975 mg (3 x 325 mg) PO Q6H PRN 04/30/25 pain #1 tab gabapentin 100 mg capsule 200 mg (2 x 100 mg) PO BID # 1 cap 04/30/25 methocarbamol 500 mg tablet 500 mg PO TID #1 tab 04/30 Allergies Allergy/AdvReac Type Severity Reaction Status Date / Time No Known Allergies Allergy Verified 04/27/25 11:43 Review of Systems 2 Review of Systems: Constitutional: No fever, chills, fatigue, night sweats, weight changes ENT/Mouth: No ear pain, hearing loss, nasal congestion, sinus pain, rhinorrhea, sore throat Eyes: No eye pain, swelling, redness, vision changes, discharge Cardio: No chest pain, palpitations, VAZQUEZ, orthopnea, peripheral edema Pulm: No SOB, cough, sputum, wheezing, dyspnea, hemoptysis GI: No nausea, vomiting, hematemesis, abdominal pain, diarrhea, constipation, hematochezia, melena : No irregular bleeding, dysuria, frequency, urgency, hesitancy, hematuria, flank pain, urinary flow changes, urinary incontinence or retention MSK: No neck pain, joint pain, myalgias, +back pain Skin: No lesions, rashes Neuro: No weakness, numbness, paresthesias, LOC, dizziness, headache Psych: No anxiety/panic, depression, SI/HI, AH/VH All other systems reviewed and are negative. FOR[facility]LY [facility] Past Medical History Attestation statement: The following information was validated with the patient. Source: old records reviewed, obtained from family (Daughter) and nursing notes reviewed Medical History Obstructive sleep apnea hypopnea, mild Restless legs syndrome (RLS) Hypersomnia Snoring Acute hyponatremia Osteoporosis Hypertensive emergency On beta april at home Vitamin D deficiency Goiter Hyperparathyroidism Subclinical hyperthyroidism Effusion, left knee Renal impairment High cholesterol Hypertension Left knee pain Surgical History H/O colonoscopy History of esophagogastroduodenoscopy (EGD) Hx of cataract extraction Hx of hysterectomy Family History Family History Father No problems noted. Mother No problems noted. Social History Social History Household Members: None Household Members Other:: lives with her daughter Housing: House Do you presently have visiting nurse or other home services: No Alcohol intake: never Patient Tobacco Use Status: Never used Tobacco e-Cigarette/Vaping Use: Never Used Second Hand Smoke Exposure: No service: No Current occupational status: unemployed Physical Exam 2 Vital Signs: Vital Signs: Last Vital Signs Temp 97.3 F 04/30/25 15:14 Pulse 80 04/30/25 15:14 Resp 17 04/30/25 15:14 BP 158/83 H 04/30/25 15:14 Pulse Ox 95 04/30/25 15:14 O2 Del Method Room Air 04/30/25 15:14 O2 Flow Rate 2 04/29/25 23:52 BMI result Body Mass Index 26.1 Vital signs stable General: awake, in no acute distress. Skin: Warm, dry, intact. No rashes or lesions. Head: Normocephalic, atraumatic. EENT: Hearing is intact b/l. Conjunctiva clear. Sclera is anicteric. PERRLA. EOM intact. Moist mucous membranes.? Cardiac: Chest wall symmetric. RRR Lungs: Normal respiratory effort without accessory muscle use. CTA bilaterally Abdomen: Soft, non-tender, non-distended. No rebound tenderness or guarding. Positive BS x4. Back: No midline spinous or paraspinal tenderness. No step off deformity. Ext: Upper and lower extremities atraumatic, without tenderness, deformity, swelling or erythema. Full ROM throughout. Neuro: AOx3. Normal speech. Strength 4/5 intact throughout. No saddle anesthesia. Sensation intact to light touch. NV intact distally Course Course Course Narrative: This is an RME: Additional HPI, ROS, PE not included below will be deferred to primary provider. RME assessment and note performed by: Sil Gonzalez PA-C This is a 84-year-old Bahamian-speaking female, with a history of hypertension, hyperthyroidism, hyperparathyroidism, hypercholesterolemia, who presents emergency department with concerns of left hip pain, that radiates down into her right leg for the last 1 week. No injury, falls, heavy lifting. No urinary symptoms. Patient with tenderness palpation along the left hip, no overlying skin changes. No chest pain or shortness of breath. Plan: Labs, UA, x-ray, further ER evaluation needed. Reevaluation(s) Reevaluation #1: CBC without leukocytosis or left shift. There is normocytic anemia, H&H stable. Chemistry without NICK. hyponatremia to 125. Serum osmolality 270, urine osmolality 379, urine sodium 36. She is not altered. Treated with saltines and fluid restriction. Repeat chemistry shows improvement to sodium of 128 after 3 hours. Urine without infection. X-ray of lumbar spine and left hip/pelvis without acute fracture. Chronic degenerative changes. CT lumbar spine showing multilevel lumbar spondylosis resulting in grade 1 anterolisthesis L5/S1 and central spinal canal stenosis from L3/4 to L5/S1 with bilateral neural foraminal stenosis at L5/S1 and L4/5. I have compared this finding to MRI lumbar spine obtained on 02/27/2022, similar findings. I do not have concern for cauda equina. She has been treated with morphine, Lidoderm patch, ketorolac with some improvement. She also received a dose of home ropinirole for restless leg. > likely euvolemic hyponatremia. Discussed with hospitalist, will admit patient to medicine for further management. Patient and daughter are agreeable. Medications Administered Discontinued Medications Generic Name Dose Route Start Last Admin Trade Name Freq PRN Reason Stop Dose Admin Acetaminophen 975 mg 04/27/25 21:30 04/30/25 15:09 Acetaminophen 325 Mg Tablet PO 975 mg Q6H PAUL Administration Amlodipine Besylate 5 mg 04/30/25 09:00 04/30/25 08:41 Amlodipine Besylate 5 Mg Tablet PO 5 mg DAILY PAUL Administration Protocol Atorvastatin Calcium 20 mg 04/29/25 09:00 04/30/25 08:02 Atorvastatin Calcium 20 Mg Tablet PO 20 mg DAILY PAUL Administration Cyclobenzaprine HCl 10 mg 04/27/25 16:20 04/27/25 18:11 Cyclobenzaprine Hcl 10 Mg Tablet PO 04/27/25 16:21 10 mg ONCE ONE Administration Erythromycin 1 cm 04/28/25 13:00 04/30/25 17:21 Erythromycin Base 0.5% Oph Oin 1 Gm Tube EYE-BOTH 1 cm QID PAUL Administration Fluticasone Propionate 1 spray 04/29/25 09:00 04/30/25 08:06 Fluticasone Propionate Nasal 16 Gm [place] NOSTRIL-B 1 spray DAILY PAUL Administration Gabapentin 400 mg 04/27/25 16:20 04/27/25 18:11 Gabapentin 400 Mg Capsule PO 04/27/25 16:21 400 mg ONCE STA Administration Gabapentin 300 mg 04/27/25 21:00 04/28/25 09:03 Gabapentin 300 Mg Capsule PO 300 mg BID PAUL Administration Gabapentin 100 mg 04/28/25 21:00 04/29/25 09:45 Gabapentin 100 Mg Capsule PO 100 mg BID PAUL Administration Gabapentin 200 mg 04/29/25 21:00 04/30/25 08:02 Gabapentin 100 Mg Capsule PO 200 mg BID PAUL Administration Heparin Sodium (Porcine) 5,000 unit 04/28/25 09:00 04/30/25 08:02 Heparin Sodium,Porcine 5,000 Unit/Ml Vial SUBCUT 5,000 unit Q12H PAUL Administration Albumin Human 100 mls @ 133.333 mls/hr 04/27/25 23:45 04/28/25 01:55 Kedbumin 25 % IV 04/28/25 01:29 Infused Q1H PAUL Infusion Lactated Ringer's 1,000 mls @ 80 mls/hr 04/28/25 14:30 04/29/25 10:34 Lr IVCONT Infused .[id number] PAUL Infusion Ketorolac Tromethamine 30 mg 04/27/25 12:45 04/27/25 12:50 Ketorolac Tromethamine 30 Mg/Ml Vial IVPUSH 04/27/25 12:46 30 mg ONCE ONE Administration Lidocaine 1 patch 04/27/25 12:46 04/27/25 12:50 Lidocaine 4 % Patch Adh..Patch TRANSDERMA 04/27/25 12:47 1 patch ONCE ONE Administration Protocol Lidocaine 2 patch 04/28/25 09:00 04/30/25 08:07 Lidocaine 4 % Patch Adh..Patch TRANSDERMA 2 patch DAILY PAUL Administration Protocol Methimazole 2.5 mg 04/29/25 09:00 04/30/25 08:01 Methimazole 5 Mg Tablet PO 2.5 mg DAILY PAUL Administration Methocarbamol 750 mg 04/28/25 09:00 04/28/25 11:44 Methocarbamol 750 Mg Tablet PO Not Given TID PAUL Morphine Sulfate 2 mg 04/27/25 14:52 04/27/25 15:12 Morphine Sulfate 2 Mg/Ml Cartridge IVPUSH 04/27/25 14:53 2 mg ONCE ONE Administration Protocol Morphine Sulfate 2 mg 04/27/25 18:28 04/27/25 18:46 Morphine Sulfate 4 Mg/Ml Cartridge IVPUSH 2 mg Q6H PRN Administration Pain, Severe (Pain Scale 7-10) Protocol Ropinirole HCl 1 mg 04/27/25 15:52 04/27/25 16:16 Ropinirole Hcl 1 Mg Tablet PO 04/27/25 15:53 1 mg ONCE ONE Administration Ropinirole HCl 1 mg 04/28/25 21:00 04/30/25 08:02 Ropinirole Hcl 1 Mg Tablet PO 1 mg BID PAUL Administration Ropinirole HCl 0.5 mg 04/28/25 14:36 04/28/25 14:50 Ropinirole Hcl 0.5 Mg Tablet PO 04/28/25 14:37 0.5 mg ONCE ONE Administration Sodium Chloride 3 ml 04/28/25 00:00 04/30/25 15:11 0.9 % Sodium Chloride Flush 3 Ml Syringe IVFLUSH 3 ml QSHIFT PAUL Administration Vitamin D 25 mcg 04/29/25 09:00 04/30/25 08:01 Cholecalciferol (Vitamin D3) 25 Mcg Tablet PO 25 mcg DAILY PAUL Administration Medical Decision Making Medical Decision Making MDM Narrative: 84 year old female with pmhx significant for HTN, HLD, subclinical hyperthyroidism on methimazole presents to the ED today with her daughter for evaluation of low back pain x2 weeks, worsening this morning. Vital signs stable. She is well-appearing and in no acute distress. Exam is quite unremarkable. Differential diagnosis includes anemia, electrolyte abnormality, MSK sprain/strain, sciatica, muscle spasm, chronic low back pain, neuropathy, UTI, renal colic, nephrolithiasis, hydronephrosis. Unlikely DVT, neurovascular compromise, threat to limb, compartment syndrome. Unlikely cauda equina, Guillain-[place], epidural abscess, cord compression. Plan for basic blood work, UA, imaging, pain control, re-evaluation. Differential Diagnosis Differential Diagnoses: The differential diagnosis associated with the presentation includes as above. Admission/Observation Consideration of admission/observation: Escalation of care including admission/observation considered Patient admitted to medicine for treatment of acute hyponatremia Consult Healthcare Provider Management of the patient was discussed with: Hospitalist (Dr. Au) Lab Data MDM Lab Attestation statement: I reviewed the patient's lab results. As above 04/28/25 06:45 04/29/25 05:56 Labs: Lab Results 04/27/25 04/27/25 04/27/25 Range/Units 12:09 12:46 15:04 WBC 8.6 (4.8-10.8) X10*3/uL RBC 4.33 (4.20-5.50) X10*6/uL Hgb 11.6 L (12.0-16.0) g/dl Hct 35.0 L (37.0-47.0) % MCV 80.8 (80.0-98.0) fL MCH 26.8 L (27.0-33.0) pg MCHC 33.1 (31.0-35.0) g/dl RDW 13.3 (11.0-16.0) % Plt Count 178 (160-400) X10*3/uL MPV 10.7 (9.4-12.3) fL Immature Gran % (Auto) 0.3 (0.0-0.4) % Neut % (Auto) 75.4 H (45-73) % Lymph % (Auto) 15.3 L (20-40) % [place] % (Auto) 8.4 (2-11) % Eos % (Auto) 0.3 (0-4) % Baso % (Auto) 0.3 (0-2) % Lymph # (Auto) 1.3 (1.2-4.9) X10*3/uL [place] # (Auto) 0.7 (0.1-1.2) X10*3/uL Eos # (Auto) 0.0 (0.0-0.4) X10*3/uL Baso # (Auto) 0.0 (0.0-0.2) X10*3/uL Abs Immat Gran (auto) 0.03 (0.00-0.03) X10*3/uL Absolute Neuts (auto) 6.5 (2.0-8.3) x10*3/uL Absolute Nucleated RBC 0.000 (0.0-0.012) X10*3/uL Nucleated RBC % (auto) 0.0 (0.0-0.2) /100WBC Sodium 125 L 128 L (135-145) mmol/L Potassium 4.0 4.8 (3.3-5.1) mmol/L Chloride 95 L 98 (96-108) mmol/L Carbon Dioxide 22 25 (22-29) mmol/L Anion Gap 12 10 L (12-20) BUN 17 H 17 H (9-16) mg/dL Creatinine 1.03 1.00 (0.5-1.4) mg/dL Estim Creat Clear Calc 34.6 35.6 Estimated GFR 51 53 Random Glucose 164 H 109 (60-115) mg/dL Osmolality 270 L (281-305) mosm/kg Calcium 9.2 9.1 (8.4-10.2) mg/dL Total Bilirubin 1.2 H (0.0-1.0) mg/dL Direct Bilirubin 0.4 (0.0-0.5) mg/dL AST 21 (5-31) U/L ALT 15 (0-31) U/L Alkaline Phosphatase 90 (39-117) U/L Total Protein 7.5 (6.5-8.0) g/dL Albumin 4.2 (3.5-5.0) g/dL TSH 1.00 (0.32-4.0) uIU/mL Urine Color Yellow Urine Appearance Clear Urine pH 6.0 (5.0-9.0) Ur Specific [place] 1.010 (1.005-1.025) Urine Protein Negative (Neg-Trace) mg/dL Urine Glucose (UA) Negative (Negative) mg/dL Urine Ketones Negative (Negative) mg/dL Urine Blood Negative (Negative) Urine Nitrite Negative (Negative) Ur Leukocyte Esterase Small (1+) H (Negative) Urine RBC 0-2 (0-2) /HPF Urine WBC 0-5 (0-5) /HPF Ur Squamous Epith Cells 3-5 (0-2) /HPF Urine Bacteria Trace (None Seen) Hyaline Casts 0-2 (0-2) /LPF Urine Osmolality 379 (373-1093) mosm/kg Ur Random Sodium 36.0 mmol/L Independent Interpretation I performed an independent interpretation of an: Plain X-Ray and CT Scan Interpretation: X-ray lumbar spine without fracture CT lumbar spine without fracture xr L hip/ pelvic without fracture Radiology Impression Discussion of test interpretation with radiology: I have reviewed the radiologist's reading. Radiologist Impression: Procedure(s): XR lumbar spine 2-3V Accession Number(s): [id number] cc: Evi Thomson MD; Sil Teran~ EXAMINATION: XR LUMBOSACRAL SPINE CLINICAL INFORMATION: pain COMPARISON: None available. TECHNIQUE: Three views of the lumbosacral spine. FINDINGS: Grade 1 anterolisthesis at L5-S1 on a spondylolysis pars interarticularis. Multilevel marginal osteophyte formation and syndesmophyte formation involving the lower thoracic and upper lumbar spine. Multilevel endplate sclerosis. No acute cortical disruption. . XR/XR lumbar spine 2-3V IMPRESSION: Multilevel thoracolumbar spondylosis. 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 Procedure(s): XR hip LT w PEL1V Accession Number(s): [id number] cc: Evi Thomson MD; Sil Teran~ EXAMINATION: XR HIP, LEFT CLINICAL INFORMATION: pain COMPARISON: None available. TECHNIQUE: AP pelvis, and 2 views of the left hip. FINDINGS: No fracture. Alignment is anatomic. Hip joint spaces are maintained. Soft tissues are unremarkable. Sacrum is intact. Mild arthritic changes in the SI joints and lower lumbar spine. XR/XR hip LT w PEL1V IMPRESSION: No acute bony abnormalities of the left hip or pelvis. Electronically signed by: Blue Suero MD 04/27/2025 01:44 PM EDT Date of Service: 04/27/25 Procedure(s): CT lumbar spine wo IV con Accession Number(s): [id number] cc: Evi Thomson MD; Ayde Lund~ Report Number: [id number]: Total DLP = 727.00 mGy-cm EXAMINATION: CT LUMBAR SPINE WITHOUT CONTRAST CLINICAL INFORMATION: Atraumatic low back pain radiating to the left lower extremity. COMPARISON: None available. TECHNIQUE: Contiguous axial images through the cervical spine using 2 mm collimation with bone and soft tissue algorithm. Sagittal and coronal reformatted images on bone algorithm. DLP: [address] examination was performed using dose optimization techniques as appropriate, variously including the following: *Automated exposure control *Adjustment of mA and/or kV according to patient size (this includes techniques or standardized protocols for targeted exams where dose is matched to indication/reason for exam; i.e. extremities or head) *Use of iterative reconstruction technique FINDINGS: Limited by patient's motion artifact and body habitus. Osteopenia versus osteoporosis. Grade 1 anterolisthesis on a degenerative basis resulting in bilateral neuroforamina stenosis. Multilevel marginal osteophyte formation, small size. Endplate sclerosis at L5-S1 with decreased intervertebral disc height. Facet joint hypertrophy at L5-S1 and to a lesser extent L4-5. No acute cortical disruption. Sclerosis and vacuum phenomenon at the sacroiliac joints. Central spinal canal stenosis at L3-4, L4-5 and likely L5-S1 on a multifactorial basis. Numerous diverticula in the sigmoid colon. Calcified plaques in normal diameter abdominal aorta. Kidneys appear small without hydronephrosis or gross nephrolithiasis. Soft tissue fullness left adrenal gland. CT/CT lumbar spine wo IV con IMPRESSION: Multilevel lumbar spondylosis resulting in grade 1 anterolisthesis L5-S1 and central spinal canal stenosis from L3-4 to L5-S1 and bilateral neuroforamina stenosis at L5-S1 and L4-5 levels. Electronically signed by: Salvatore Sanchez MD 04/27/2025 02:47 PM EDT Independent Historian Clinical information obtained from an independent historian. History obtained from or confirmed by: Other (Daughter) External Record Review External record reviewed: Inpatient record, Office record, Outpatient record, Prior outpatient labs and Prior outpatient radiology Social Determinants Patient?s care significantly limited by Social Determinants of Health including: Other Social Determinant of Health Critical Care Time Critical Care Time Critical Care Time: Yes Total Critical Care Time: 35 Attestation: Critical care time in the amount of 35 minutes has been provided to the patient in terms of direct patient care, frequent reevaluation, consultation with hospitalist, review and interpretation of medical data and results, and management of potentially life-threatening conditions. This is all outside of any medical procedures. Discharge Plan Discharge Clinical Impression: Hyponatremia Patient Disposition: Admitted As Inpatient Interventions: Admission Worksheet (ED) Last Done: 04/27/25 17:11 Discharge Date/Time: 04/27/25 18:30
[2025-04-27 12:13] LABS: MANUAL DIFF FLAG NO
[2025-04-27 12:21] LABS: Basophils Percent Auto 0.3 % (0-2); Eosinophils Percent Auto 0.3 % (0-4); Hemoglobin 11.6 g/dl (12.0-16.0); Imm Gran Abs Auto 0.03 X10*3/uL (0.00-0.03); Imm Gran Pct Auto 0.3 % (0.0-0.4); Lymphocytes Absolute Auto 1.3 X10*3/uL (1.2-4.9); Lymphocytes Percent Auto 15.3 % (20-40); Mean Corpuscular HGB Conc 33.1 g/dl (31.0-35.0); Mean Corpuscular Hemoglobin 26.8 pg (27.0-33.0); Mean Corpuscular Volume 80.8 fL (80.0-98.0); Mean Platelet Volume 10.7 fL (9.4-12.3); Monocytes Absolute Auto 0.7 X10*3/uL (0.1-1.2); Monocytes Percent Auto 8.4 % (2-11); Neutrophils Absolute Auto 6.5 x10*3/uL (2.0-8.3); Neutrophils Percent Auto 75.4 % (45-73); Platelet Count 178 X10*3/uL (160-400); Red Blood Count 4.33 X10*6/uL (4.20-5.50); Red Cell Distribution Width 13.3 % (11.0-16.0); White Blood Count 8.6 X10*3/uL (4.8-10.8)
[2025-04-27 12:29] LABS: Alanine Aminotransferase 15 U/L (0-31); Albumin Level 4.2 g/dL (3.5-5.0); Alkaline Phosphatase 90 U/L (39-117); Anion Gap 12 (12-20); Aspartate Amino Transferase 21 U/L (5-31); Bilirubin Direct 0.4 mg/dL (0.0-0.5); Bilirubin Total 1.2 mg/dL (0.0-1.0); Blood Urea Nitrogen 17 mg/dL (9-16); Calcium 9.2 mg/dL (8.4-10.2); Carbon Dioxide 22 mmol/L (22-29); Chloride 95 mmol/L (96-108); Creatinine Clr Calc Pharmacy 34.6; Estimated Glomerular Filt Rate 51; Glucose Random 164 mg/dL (60-115); Sodium 125 mmol/L (135-145); Total Protein 7.5 g/dL (6.5-8.0)
[2025-04-27] MEDS: Lidocaine 4 % Patch ADH..PATCH 1 PATCH TRANSDERMA (12:50)
[2025-04-27] MEDS: Ketorolac Tromethamine 30 MG/ML VIAL IVPUSH (12:50)
--- OUTSIDE RECORDS SUMMARY | 2025-04-27 12:54 | XMS_ITS | Clinical Summary ---
Author Organization [facility] Address [address] [place] [address] Care Team Providers Care Office Communication Professor Name Role Phone Evi Thomson MD Primary Care Provider [phone] Medications No known medications Active Problems No [...] season) 2024 10/17/2021, 03/20/2021, 02/20/2021 Influenza Vaccine (Season Ended) 2025 10/28/2021, 10/01/2020, 08/24/2019 Hepatitis B Vaccines Aged Out No long er eligible based on patient's age to complete this topic RSV Ped < 20 months Aged Out No longe r eligible based on patient's age to complete this topic Care Teams Office Communication Professor Relationship Specialty Start Date End Date Evi Thomson MD [address] [place] [address] [phone] PCP - General Family Medicine 09/03/23
[2025-04-27 13:03] LABS: Appearance Urine Clear; Color Urine Yellow; Glucose Urine UA Negative (Negative); Leukocyte Esterase Urine Small (1+) (Negative); Nitrite Urine Negative (Negative); UMIC TRIGGER UACC YES; Urine Blood Negative (Negative); Urine Ketones Negative (Negative); Urine Protein Negative (Neg-Trace)
[2025-04-27 13:16] LABS: Bacteria Urine Trace (None Seen); Hyaline Casts Urine 0-2 /LPF (0-2); RBC Urine 0-2 /HPF (0-2); UACC Culture Trigger YES; WBC Urine 0-5 /HPF (0-5)
[2025-04-27 13:46] LABS: Osmolality, Serum 270 mosm/kg (281-305)
[2025-04-27 13:51] LABS: Osmolality Urine 379 mosm/kg (373-1093)
[2025-04-27] MEDS: Morphine Sulfate 2 MG/ML CARTRIDGE IVPUSH (15:12)
[2025-04-27 15:24] LABS: Anion Gap 10 (12-20); Blood Urea Nitrogen 17 mg/dL (9-16); Calcium 9.1 mg/dL (8.4-10.2); Carbon Dioxide 25 mmol/L (22-29); Chloride 98 mmol/L (96-108); Creatinine Clr Calc Pharmacy 35.6; Estimated Glomerular Filt Rate 53; Glucose Random 109 mg/dL (60-115); Potassium 4.8 mmol/L (3.3-5.1); Sodium 128 mmol/L (135-145)
[2025-04-27] MEDS: rOPINIRole HCL 1 MG TABLET PO (16:16)
[2025-04-27] MEDS: Cyclobenzaprine HCl 10 MG TABLET PO (18:11)
[2025-04-27] MEDS: Gabapentin 400 MG CAPSULE PO (18:11)
--- NOTE | 2025-04-27 18:38 | P.HPHOSP_ITS ---
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 She denied numbness to the genital area, difficulty defecating, diarrhea or urinating. Her last bowel movement was yesterday and was normal. She does have difficulty walking due to the pain. Pain relieves when leaning forward. She has been taking Tylenol without improvement. She does experience tingling sensation to both feet. She denied any fever, trauma or falls. Patient denied any acute urinary symptoms. In the ED, her vital signs are unremarkable. Blood workup was remarkable for hyponatremia, 125 (increased to 128 over 3 hours), the results of hypoglycemia. Potassium is 4 0.8, calcium 9.1, BUN 22 and anion gap 12. Glucose is 164. Serum and urine osmolality are 270 and 379, respectively. Total bilirubin is 1.2. Other LFTs are normal. TSH 1.00. Urinalysis is unremarkable except for mild leukocyte steroids. Urine sodium is 36.0, creatinine 93.70. Lumbar CT scan without IV contrast, multilevel lumbar spondylosis resulting in grade 1 anterolisthesis L5-S1 and central spinal canal stenosis from L3-4 to L5-S1 and bilateral neural foraminal stenosis at L5-S1 and L4-5. Left hip and pelvic x- ray showed no acute fractures. ED tx: Requip 1 mg PO, morphine 2 mg IV, lidocaine 4% patch (1) patch, ketorolac 30 mg IV Review of Systems 2 Review of Systems: All 12 systems were reviewed and normal except as noted in HPI. [facility] Medical History Obstructive sleep apnea hypopnea, mild Restless legs syndrome (RLS) Hypersomnia Snoring Acute hyponatremia Osteoporosis Hypertensive emergency On beta april at home Vitamin D deficiency Goiter Hyperparathyroidism Subclinical hyperthyroidism Effusion, left knee Renal impairment High cholesterol Hypertension Left knee pain Family History Father No problems noted. Mother No problems noted. Surgical History H/O colonoscopy History of esophagogastroduodenoscopy (EGD) Hx of cataract extraction Hx of hysterectomy Social History Household Members: None Household Members Other:: lives with her daughter Housing: House Do you presently have visiting nurse or other home services: No Alcohol intake: never Patient Tobacco Use Status: Never used Tobacco Smoked in Last 30 Days: No Use of substances other than those prescribed or required for medical reasons: No Advance Directives: No Advance Directives Information Provided: Yes service: No Current occupational status: unemployed Meds Allergies Allergy/AdvReac Type Severity Reaction Status Date / Time No Known Allergies Allergy Verified 04/27/25 11:43 Active Medications: Current Medications Acetaminophen (Acetaminophen 325 Mg Tablet) 975 mg PO Q6H [facility] Gabapentin (Gabapentin 300 Mg Capsule) 300 mg PO BID [facility] Heparin Sodium (Porcine) (Heparin Sodium,Porcine 5,000 Unit/Ml Vial) 5,000 unit SUBCUT Q12H [facility] Lidocaine (Lidocaine 4 % Patch Adh..Patch) 2 patch TRANSDERMA DAILY [facility]; Protocol Magnesium Hydroxide (Milk Of Magnesia 30 Ml Oral.Susp) 30 ml PO DAILY PRN PRN Reason: Constipation Methocarbamol (Methocarbamol 750 Mg Tablet) 750 mg PO TID [facility] Morphine Sulfate (Morphine Sulfate 4 Mg/Ml Cartridge) 2 mg IVPUSH Q6H PRN; Protocol PRN Reason: Pain, Severe (Pain Scale 7-10) Sodium Chloride (0.9 % Sodium Chloride Flush 3 Ml Syringe) 3 ml IVFLUSH QSHIFT [facility] Home Medications ?Medication ?Instructions ?Recorded ?Confirmed ?Last Taken ?Type atorvastatin 20 mg tablet 20 mg PO DAILY 08/29/20 03/29/25 Unknown History benazepril 10 mg tablet 10 mg PO DAILY 02/03/23 03/29/25 Unknown History latanoprost 0.005 % eye drops 1 drp ophthalmic (eye) BEDTIME 02/03/23 03/29/25 Unknown History amlodipine 5 mg tablet 5 mg PO DAILY 07/19/23 03/29/25 Unknown History denosumab 60 mg/mL subcutaneous 60 mg subcut [id number] 08/18/24 03/29/25 Unknown History syringe (Prolia) calcium carbonate 500 mg PO DAILY 04/27/25 04/27/25 Unknown History duloxetine 20 mg capsule,delayed 20 mg PO DAILY 04/27/25 Unknown History release erythromycin 5 mg/gram (0.5 %) eye ophthalmic (eye) 04/27/25 Unknown History ointment fluticasone propionate 50 1 spray intranasal DAILY 04/27/25 04/27/25 Unknown History mcg/actuation nasal spray,suspension gabapentin 300 mg capsule 300 mg PO BEDTIME 04/27/25 Unknown History Physical Exam 2 Vital Signs and Narrative: Vital Signs: Last Vital Signs Temp 96.9 F 04/27/25 17:23 Pulse 62 04/27/25 17:23 Resp 12 04/27/25 17:23 BP 130/51 L 04/27/25 17:23 Pulse Ox 94 04/27/25 17:23 O2 Del Method Room Air 04/27/25 17:23 BMI result Body Mass Index 26.1 Constitutional - Awake, somnolent. No apparent distress. Pleasant. Cooperative. HEENT - PER, EOMI Heart - RRR, (+) murmur. Lungs - Normal lung expansion, Normal respiratory effort, No respiratory distress, CTA bilaterally Abdomen - NT / ND; +BS; No rebound or guarding Extremities - no calf tenderness bilaterally, no swelling Musculoskeletal - Normal inspection, normal ROM Skin - Warm/Dry Neurological - Alert & oriented x3. Lower extremities: 4/5 all muscle groups. Psychological - Appropriate affect Results Labs 04/27/25 12:09 04/27/25 15:04 Labs: Laboratory Results - last 24 hr 04/27/25 04/27/25 04/27/25 12:09 12:46 15:04 MCV 80.8 MCH 26.8 L MCHC 33.1 RDW 13.3 Plt Count 178 MPV 10.7 Immature Gran % (Auto) 0.3 Neut % (Auto) 75.4 H Lymph % (Auto) 15.3 L [place] % (Auto) 8.4 Eos % (Auto) 0.3 Baso % (Auto) 0.3 Lymph # (Auto) 1.3 [place] # (Auto) 0.7 Eos # (Auto) 0.0 Baso # (Auto) 0.0 Abs Immat Gran (auto) 0.03 Absolute Neuts (auto) 6.5 Absolute Nucleated RBC 0.000 Nucleated RBC % (auto) 0.0 Anion Gap 12 10 L Estim Creat Clear Calc 34.6 35.6 Estimated GFR 51 53 Random Glucose 164 H 109 Osmolality 270 L Calcium 9.2 9.1 Total Bilirubin 1.2 H Direct Bilirubin 0.4 AST 21 ALT 15 Alkaline Phosphatase 90 Total Protein 7.5 Albumin 4.2 TSH 1.00 Urine Color Yellow Urine Appearance Clear Urine pH 6.0 Ur Specific [place] 1.010 Urine Protein Negative Urine Glucose (UA) Negative Urine Ketones Negative Urine Blood Negative Urine Nitrite Negative Ur Leukocyte Esterase Small (1+) H Urine RBC 0-2 Urine WBC 0-5 Ur Squamous Epith Cells 3-5 Urine Bacteria Trace Hyaline Casts 0-2 Urine Osmolality 379 Ur Random Sodium 36.0 Imaging Radiologist's Impressions: Impressions Lumbar Spine X-Ray 04/27/25 12:36 IMPRESSION: Multilevel thoracolumbar spondylosis. 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 Electronically signed by: Salvatore Sanchez MD 04/27/2025 02:47 PM EDT RP Hip/Pelvis X-Ray 04/27/25 13:25 IMPRESSION: No acute bony abnormalities of the left hip or pelvis. Electronically signed by: Blue Suero MD 04/27/2025 01:44 PM EDT RP Assessment and Plan (1) Hyponatremia: Status: Acute (2) Lower back pain: Qualifiers: Chronicity: unspecified Back pain laterality: midline Sciatica presence: without sciatica Qualified Code(s): M54.50 - Low back pain, unspecified Status: Acute Plan Linda Nolen is 84 y/o woman admitted with: * Hyponatremia, likely SIADH. Admit to hospitalist service. Hold duloxetine. Fluid restriction. Continue to monitor Na+ level (next 8 pm); goal 8-10 mEq/dL in 24 hr. Continue to monitor. * Lower back pain; no red flags, improving, secondary to spinal stenosis. Tylenol by 975 mg p.o. every 6 hours scheduled, start Robaxin 750 mg PO TID, change, pitting to 300 mg PO bid. Morphine 2 mg q6h prn severe pain. * Hyperlipidemia. Continue atorvastatin. * Subclinical hyperthyroidism. Continue methimazole. * Restless leg syndrome. Continue Requip and gabapentin. Check iron panel. * Essential hypertension. Continue benazepril/alternative and amlodipine. DVT prophylaxis: Heparin Code status: Full Patient will need hospitalization for at least 2 midnights for close monitoring of sodium levels. Quality Stroke Does the patient have a stroke diagnosis?: No VTE Prior VTE?: No VTE Risk Level:: Medical - moderate - high VTE Device Contraindication: Treatment Not Indicated VTE Drug Contraindication: N/A - Med Ordered
[2025-04-27] MEDS: Morphine Sulfate 4 MG/ML CARTRIDGE 2 MG IVPUSH (18:46)
[2025-04-27 20:41] LABS: Sodium 129 mmol/L (135-145)
--- NOTE | 2025-04-27 21:09 | PHA.MEDREC ---
Addendum entered by William Vásquez [facility] 04/27/25 22:03: MED REC CHECKED BY [facility] Original Note: Pharmacy Consult ? Medication Reconciliation Pharmacy has completed the medication reconciliation. Spoke to patient through hot die press operator service ( Abner) to confirm med list. Patient states she is no longer taking Calcium Carbonate 200 mg, and Latanoprost 0.005%. Patient confirmed she get Denosumab 60 mg/ML [id number] , however she doesn't know when she last had. Patient thinks she last had he injection last month. Patient had all her morning medications today.
[2025-04-27] MEDS: Acetaminophen 325 MG TABLET 975 MG PO (21:27)
[2025-04-27] MEDS: Gabapentin 300 MG CAPSULE PO (21:33)
[2025-04-27] MEDS: 0.9 % Sodium Chloride Flush 3 ML SYRINGE IVFLUSH (21:35)
[2025-04-28] VITALS (9 sets, daily range): BP systolic 94–141; BP diastolic 51–65; PULSE 58–71; RESP 16–18; TEMP 36.1–36.7; O2SAT 91–96
[2025-04-28] MEDS: Albumin Human 25 % 100 ML 133.33 ML IV ×2 (00:17→01:06)
[2025-04-28 01:16] LABS: Sodium 133 mmol/L (135-145)
--- NOTE | 2025-04-28 02:13 | PC.NURSE ---
0000-vitals signs 97.5-51-16-90/52 manually, 93% room air, patient resting quietly in bed and offering no complaints, medicated earlier with scheduled tylenol and stated to have a mild headache which has improved. Hospitalist on duty was alerted to low BP and previous reading on admission was at 134/61. fluids encouraged and did accept cranberry juice. MD ordered 2 bags of Albumin to be given, roll table operator was called and came to bedside to explain medication with this RN, pt acknowledged understanding and agreeable. Blood pressure after infusion was 101/54-59-18. Will continue to monitor closely
--- NOTE | 2025-04-28 05:52 | PC.NURSE ---
0600-assisted out of bed to commode, no void, (last void 2200), back to bed, denied bladder pain or pressure, fluids encouraged, bladder scan reveals 177ml, no action at this time will continue to monitor.
[2025-04-28 06:58] LABS: MANUAL DIFF FLAG NO
[2025-04-28 07:04] LABS: Basophils Percent Auto 0.2 % (0-2); Eosinophils Percent Auto 0.2 % (0-4); Hematocrit 31.7 % (37.0-47.0); Hemoglobin 10.4 g/dl (12.0-16.0); Imm Gran Abs Auto 0.01 X10*3/uL (0.00-0.03); Imm Gran Pct Auto 0.2 % (0.0-0.4); Lymphocytes Absolute Auto 1.2 X10*3/uL (1.2-4.9); Lymphocytes Percent Auto 19.6 % (20-40); Mean Corpuscular HGB Conc 32.8 g/dl (31.0-35.0); Mean Corpuscular Hemoglobin 26.8 pg (27.0-33.0); Mean Corpuscular Volume 81.7 fL (80.0-98.0); Mean Platelet Volume 10.6 fL (9.4-12.3); Monocytes Absolute Auto 0.6 X10*3/uL (0.1-1.2); Monocytes Percent Auto 9.7 % (2-11); Neutrophils Absolute Auto 4.3 x10*3/uL (2.0-8.3); Neutrophils Percent Auto 70.1 % (45-73); Platelet Count 144 X10*3/uL (160-400); Red Blood Count 3.88 X10*6/uL (4.20-5.50); Red Cell Distribution Width 13.6 % (11.0-16.0); White Blood Count 6.1 X10*3/uL (4.8-10.8)
[2025-04-28 07:26] LABS: Anion Gap 13 (12-20); Blood Urea Nitrogen 31 mg/dL (9-16); Calcium 8.4 mg/dL (8.4-10.2); Carbon Dioxide 23 mmol/L (22-29); Chloride 101 mmol/L (96-108); Creatinine Clr Calc Pharmacy 20.8; Estimated Glomerular Filt Rate 27; Glucose Random 105 mg/dL (60-115); Iron 19 mcg/dL (30-160); Percent Iron Saturation 10 % (15-50); Potassium 4.8 mmol/L (3.3-5.1); Sodium 132 mmol/L (135-145); Total Iron Binding Capacity 196 mcg/dL (228-428); Unsaturated Iron Binding 177 ug/dL
[2025-04-28] MEDS: Gabapentin 300 MG CAPSULE PO (09:03)
[2025-04-28] MEDS: Heparin Sodium,Porcine 5,000 UNIT/ML VIAL 5000 UNIT SUBCUT ×2 (09:03→21:38)
[2025-04-28] MEDS: Acetaminophen 325 MG TABLET 975 MG PO ×3 (09:03→21:38)
[2025-04-28] MEDS: Lidocaine 4 % Patch ADH..PATCH 2 PATCH TRANSDERMA (09:04)
[2025-04-28] MEDS: 0.9 % Sodium Chloride Flush 3 ML SYRINGE IVFLUSH ×2 (09:04→16:19)
[2025-04-28 11:13] LABS: Ferritin 50 ng/mL (10-250)
[2025-04-28] MEDS: Erythromycin Base 0.5% Oph Oin 1 GM TUBE 1 CM EYE-BOTH ×3 (13:31→21:41)
--- NOTE | 2025-04-28 13:57 | PC.NURSE ---
Patient having difficulty voiding, bladder scans performed. Patient c/o pressure located in lower abdomen area, attempted to get up to bedside commode but still unable to void on commode. Discussed with MD Marin Leslie via [employer] and at bedside. MD verbalized in person to perform straight cath on patient due to inability to void. Straight cath easy to perform with minimal discomfort, after straight cath patient verbalized no more pressure on lower abdomen. Refer to flowsheet for output amount.
[2025-04-28] MEDS: rOPINIRole HCL 0.5 MG TABLET PO (14:50)
--- NOTE | 2025-04-28 14:58 | HO.PM.IMPN ---
Subjective Subjective Date of Service: 04/28/25 Interval History: hyponatremia , back pain Review of Systems seems generally weak restless leg movements Physical Exam Vital Signs: Vital Signs: Last Vital Signs Temp 97.4 F 04/28/25 11:18 Pulse 64 04/28/25 11:18 Resp 18 04/28/25 11:18 BP 129/59 L 04/28/25 13:07 Pulse Ox 94 04/28/25 11:18 O2 Del Method Room Air 04/28/25 11:18 BMI result Body Mass Index 29.1 Appearance: awake ,weak cvs: rrr, [id number]. res: clear to auscultation ,no rhonchii or wheezing abd: no rebound or guarding ,nt, bs present. suprapubic discomfort. ext pulses present , no cyanosis . neuro: moves all ext ,follows commands Objective Data Active Medications Acetaminophen (Acetaminophen 325 Mg Tablet) 975 mg PO Q6H [facility] Last Admin: 04/28/25 14:50 Dose: 975 mg Documented By: ANDREE Atorvastatin Calcium (Atorvastatin Calcium 20 Mg Tablet) 20 mg PO DAILY [facility] Erythromycin (Erythromycin Base 0.5% Oph Oin 1 Gm Tube) 1 cm EYE-BOTH QID [facility] Last Admin: 04/28/25 13:31 Dose: 1 cm Documented By: ANDREE Fluticasone Propionate (Fluticasone Propionate Nasal 16 Gm [place]) 1 spray NOSTRIL-B DAILY [facility] Gabapentin (Gabapentin 100 Mg Capsule) 100 mg PO BID [facility] Heparin Sodium (Porcine) (Heparin Sodium,Porcine 5,000 Unit/Ml Vial) 5,000 unit SUBCUT Q12H [facility] Last Admin: 04/28/25 09:03 Dose: 5,000 unit Documented By: ANDREE Lactated Ringer's (Lr) 1,000 mls @ 80 mls/hr IVCONT .[id number] [facility] Lidocaine (Lidocaine 4 % Patch Adh..Patch) 2 patch TRANSDERMA DAILY [facility]; Protocol Last Admin: 04/28/25 09:04 Dose: 2 patch Documented By: ANDREE Magnesium Hydroxide (Milk Of Magnesia 30 Ml Oral.Susp) 30 ml PO DAILY PRN PRN Reason: Constipation Methimazole (Methimazole 5 Mg Tablet) 2.5 mg PO DAILY [facility] Methocarbamol (Methocarbamol 750 Mg Tablet) 750 mg PO TID [facility] Last Admin: 04/28/25 11:44 Dose: Not Given Documented By: ANDREE Non-Admin Reason: Patient Condition Contraindication Ropinirole HCl (Ropinirole Hcl 1 Mg Tablet) 1 mg PO BID [facility] Sodium Chloride (0.9 % Sodium Chloride Flush 3 Ml Syringe) 3 ml IVFLUSH QSHIFT [facility] Last Admin: 04/28/25 09:04 Dose: 3 ml Documented By: ANDREE Vitamin D (Cholecalciferol (Vitamin D3) 25 Mcg Tablet) 25 mcg PO DAILY [facility] Labs 04/28/25 06:45 04/28/25 06:45 Labs: Laboratory Results - last 24 hr 04/27/25 04/28/25 15:04 06:45 MCV 81.7 MCH 26.8 L MCHC 32.8 RDW 13.6 Plt Count 144 L MPV 10.6 Immature Gran % (Auto) 0.2 Neut % (Auto) 70.1 Lymph % (Auto) 19.6 L [place] % (Auto) 9.7 Eos % (Auto) 0.2 Baso % (Auto) 0.2 Lymph # (Auto) 1.2 [place] # (Auto) 0.6 Eos # (Auto) 0.0 Baso # (Auto) 0.0 Abs Immat Gran (auto) 0.01 Absolute Neuts (auto) 4.3 Absolute Nucleated RBC 0.000 Nucleated RBC % (auto) 0.0 Anion Gap 10 L 13 Estim Creat Clear Calc 35.6 20.8 Estimated GFR 53 27 Random Glucose 109 105 Calcium 9.1 8.4 D Iron 19 L TIBC 196 L % Saturation 10 L Unsat Iron Binding 177 Ferritin 50 Microbiology Microbiology Results: Microbiology 04/27/25 Unknown Urine Culture - Final Urine clean catch - Clean Catch Midstream Lactobacillus species Assessment and Plan (1) Lower back pain: Status: Acute (2) Hyponatremia: Status: Acute Assessment and Plan: 84 y/o woman admitted with: Hyponatremia, likely SIADH: sodium improved from 125-132. tsh normal,radom cortisol levels in am Monitor BMP closely. Borderline blood pressure: Multifactorial-pain medications, lisinopril, decreased p.o. intake. Gentle hydration, monitor blood pressure closely. NICK: Multifactorial: Decreased p.o. intake, urinary retention, lisinopril PVR with straight cath if urinary retention greater than 350. Encouraged for p.o. intake, hold lisinopril Check UA again, lactobacillus urine likely contamination. Monitor BMP closely. Lower back pain: Moves all extremities, no bowel and bladder incontinence. Continue Tylenol Tylenol by 975 mg p.o. every 6 hours scheduled, hold Robaxin 750 mg PO TID, change, adjusted gabapentin 100 mg PO bid. Hyperlipidemia. Continue atorvastatin. Subclinical hyperthyroidism. Continue methimazole. Restless leg syndrome. Continue Requip and gabapentin. Check iron panel. Essential hypertension. Continue benazepril/alternative and amlodipine. Ongoing need: SIADH,, NICK: Need electrolytes and renal function monitoring, blood pressure close monitoring. PT evaluation once better.. Quality Stroke Does the patient have a stroke diagnosis?: No VTE Prior VTE?: No VTE Risk Level:: Medical - moderate - high VTE Device Contraindication: Treatment Not Indicated VTE Drug Contraindication: N/A - Med Ordered
[2025-04-28 15:31] LABS: Anion Gap 17 (12-20); Blood Urea Nitrogen 32 mg/dL (9-16); Calcium 9.2 mg/dL (8.4-10.2); Carbon Dioxide 19 mmol/L (22-29); Chloride 101 mmol/L (96-108); Creatinine Clr Calc Pharmacy 24.3; Estimated Glomerular Filt Rate 32; Glucose Random 107 mg/dL (60-115); Sodium 133 mmol/L (135-145)
[2025-04-28] MEDS: Lactated Ringers 1,000 ML 80 ML IVCONT (16:13)
[2025-04-28 20:11] LABS: Anion Gap 15 (12-20); Blood Urea Nitrogen 31 mg/dL (9-16); Calcium 9.2 mg/dL (8.4-10.2); Carbon Dioxide 18 mmol/L (22-29); Chloride 103 mmol/L (96-108); Creatinine Clr Calc Pharmacy 28.2; Estimated Glomerular Filt Rate 38; Glucose Random 163 mg/dL (60-115); Sodium 132 mmol/L (135-145)
[2025-04-28] MEDS: Gabapentin 100 MG CAPSULE PO (21:38)
[2025-04-28] MEDS: rOPINIRole HCL 1 MG TABLET PO (21:38)
[2025-04-29 03:06] VITALS: BP 125/69; PULSE 61; RESP 18; TEMP 36.1; O2SAT 96
[2025-04-29] MEDS: Acetaminophen 325 MG TABLET 975 MG PO ×3 (03:58→20:42)
[2025-04-29] MEDS: Lactated Ringers 1,000 ML 80 ML IVCONT (04:01)
[2025-04-29 06:53] LABS: Anion Gap 13 (12-20); Blood Urea Nitrogen 28 mg/dL (9-16); Calcium 9.3 mg/dL (8.4-10.2); Carbon Dioxide 24 mmol/L (22-29); Chloride 105 mmol/L (96-108); Creatinine Clr Calc Pharmacy 32.6; Estimated Glomerular Filt Rate 45; Glucose Random 96 mg/dL (60-115); Potassium 4.8 mmol/L (3.3-5.1); Sodium 137 mmol/L (135-145)
[2025-04-29 07:15] LABS: Cortisol Random 5.4 ug/dL
[2025-04-29 07:53] VITALS: BP 165/69; PULSE 63; RESP 16; TEMP 36.4; O2SAT 97
[2025-04-29] MEDS: Lidocaine 4 % Patch ADH..PATCH 2 PATCH TRANSDERMA (09:44)
[2025-04-29] MEDS: Atorvastatin Calcium 20 MG TABLET PO (09:45)
[2025-04-29] MEDS: methIMAzole 5 MG TABLET 2.5 MG PO (09:45)
[2025-04-29] MEDS: Gabapentin 100 MG CAPSULE PO (09:45)
[2025-04-29] MEDS: rOPINIRole HCL 1 MG TABLET PO ×2 (09:45→20:42)
[2025-04-29] MEDS: Heparin Sodium,Porcine 5,000 UNIT/ML VIAL 5000 UNIT SUBCUT ×2 (09:45→20:43)
[2025-04-29] MEDS: Erythromycin Base 0.5% Oph Oin 1 GM TUBE 1 CM EYE-BOTH ×3 (09:46→20:42)
[2025-04-29] MEDS: Fluticasone Propionate Nasal 16 GM SPRAY 1 SPRAY NOSTRIL-B (09:46)
[2025-04-29] MEDS: Cholecalciferol (Vitamin D3) 25 MCG TABLET PO (09:46)
[2025-04-29 12:00] VITALS: BP 144/65; PULSE 64; RESP 16; TEMP 36.2; O2SAT 92
[2025-04-29 15:10] VITALS: BP 148/67; PULSE 70; RESP 15; TEMP 37.1; O2SAT 95
[2025-04-29] MEDS: 0.9 % Sodium Chloride Flush 3 ML SYRINGE IVFLUSH (15:54)
--- NOTE | 2025-04-29 16:01 | MHC.CM.PN ---
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
--- NOTE | 2025-04-29 16:08 | HO.PM.IMPN ---
Subjective Subjective Date of Service: 04/29/25 Interval History: nick hyponatremia Review of Systems Denies any new complaints. Denies any urinary complaints or abdominal pain or nausea vomiting. Review of Systems: Yes all other systems are reviewed and are negative Physical Exam Vital Signs: Vital Signs: Last Vital Signs Temp 98.7 F 04/29/25 15:10 Pulse 70 04/29/25 15:10 Resp 15 04/29/25 15:10 BP 148/67 H 04/29/25 15:10 Pulse Ox 95 04/29/25 15:10 O2 Del Method Room Air 04/29/25 15:10 BMI result Body Mass Index 29.1 Appearance: awake ,weak cvs: rrr, [id number]. res: clear to auscultation ,no rhonchii or wheezing abd: no rebound or guarding ,nt, bs present. suprapubic discomfort. ext pulses present , no cyanosis . neuro: moves all ext . Objective Data Active Medications Acetaminophen (Acetaminophen 325 Mg Tablet) 975 mg PO Q6H [facility] Last Admin: 04/29/25 09:44 Dose: 975 mg Documented By: PRASANNA Atorvastatin Calcium (Atorvastatin Calcium 20 Mg Tablet) 20 mg PO DAILY [facility] Last Admin: 04/29/25 09:45 Dose: 20 mg Documented By: PRASANNA Erythromycin (Erythromycin Base 0.5% Oph Oin 1 Gm Tube) 1 cm EYE-BOTH QID [facility] Last Admin: 04/29/25 11:55 Dose: Not Given Documented By: PRASANNA Non-Admin Reason: Patient Refused Fluticasone Propionate (Fluticasone Propionate Nasal 16 Gm [place]) 1 spray NOSTRIL-B DAILY [facility] Last Admin: 04/29/25 09:46 Dose: 1 spray Documented By: PRASANNA Gabapentin (Gabapentin 100 Mg Capsule) 100 mg PO BID [facility] Last Admin: 04/29/25 09:45 Dose: 100 mg Documented By: PRASANNA Heparin Sodium (Porcine) (Heparin Sodium,Porcine 5,000 Unit/Ml Vial) 5,000 unit SUBCUT Q12H [facility] Last Admin: 04/29/25 09:45 Dose: 5,000 unit Documented By: PRASANNA Lidocaine (Lidocaine 4 % Patch Adh..Patch) 2 patch TRANSDERMA DAILY [facility]; Protocol Last Admin: 04/29/25 09:44 Dose: 2 patch Documented By: PRASANNA Magnesium Hydroxide (Milk Of Magnesia 30 Ml Oral.Susp) 30 ml PO DAILY PRN PRN Reason: Constipation Methimazole (Methimazole 5 Mg Tablet) 2.5 mg PO DAILY [facility] Last Admin: 04/29/25 09:45 Dose: 2.5 mg Documented By: PRASANNA Methocarbamol (Methocarbamol 750 Mg Tablet) 750 mg PO TID [facility] Last Admin: 04/28/25 11:44 Dose: Not Given Documented By: ANDREE Non-Admin Reason: Patient Condition Contraindication Ropinirole HCl (Ropinirole Hcl 1 Mg Tablet) 1 mg PO BID [facility] Last Admin: 04/29/25 09:45 Dose: 1 mg Documented By: PRASANNA Sodium Chloride (0.9 % Sodium Chloride Flush 3 Ml Syringe) 3 ml IVFLUSH QSHIFT [facility] Last Admin: 04/29/25 15:54 Dose: 3 ml Documented By: ANDREE Vitamin D (Cholecalciferol (Vitamin D3) 25 Mcg Tablet) 25 mcg PO DAILY [facility] Last Admin: 04/29/25 09:46 Dose: 25 mcg Documented By: PRASANNA Labs 04/28/25 06:45 04/29/25 05:56 Labs: Laboratory Results - last 24 hr 04/28/25 04/29/25 19:46 05:56 Hold Purple Top SEE NOTE Anion Gap 15 13 Estim Creat Clear Calc 28.2 32.6 Estimated GFR 38 45 Random Glucose 163 H 96 Calcium 9.2 9.3 Random Cortisol 5.4 Microbiology Microbiology Results: Microbiology 04/27/25 Unknown Urine Culture - Final Urine clean catch - Clean Catch Midstream Lactobacillus species Assessment and Plan (1) Lower back pain: Status: Acute (2) Hyponatremia: Status: Acute Assessment and Plan: 84 y/o woman admitted with: Hyponatremia, likely SIADH: sodium improved. tsh normal,radom cortisol levels normal duloxtine on hold Monitor BMP closely. Borderline blood pressure: Multifactorial-pain medications, lisinopril, decreased p.o. intake. Gentle hydration, monitor blood pressure closely. NICK: Multifactorial: Decreased p.o. intake, urinary retention, lisinopril PVR with straight cath if urinary retention greater than 350. Encouraged for p.o. intake, hold lisinopril improved with hydration/above management. repeat ua -grossly negative Monitor BMP closely. Lower back pain: Moves all extremities, no bowel and bladder incontinence. Continue Tylenol Tylenol by 975 mg p.o. every 6 hours scheduled, start at low dose Robaxin 500 mg PO TID, change, adjusted gabapentin 200 mg PO bid. pt eval Hyperlipidemia. Continue atorvastatin. Subclinical hyperthyroidism. Continue methimazole. Restless leg syndrome. Continue Requip and gabapentin. Check iron panel. Essential hypertension. Continue benazepril/alternative and amlodipine. Ongoing need: SIADH,, NICK: Need electrolytes and renal function monitoring, blood pressure close monitoring. PT evaluation once better.. Quality Stroke Does the patient have a stroke diagnosis?: No VTE Prior VTE?: No VTE Risk Level:: Medical - moderate - high VTE Device Contraindication: Treatment Not Indicated VTE Drug Contraindication: N/A - Med Ordered
[2025-04-29 16:46] LABS: Appearance Urine Clear; Color Urine Yellow; Glucose Urine UA Negative (Negative); Leukocyte Esterase Urine Small (1+) (Negative); Nitrite Urine Negative (Negative); PH 6.5 (5.0-9.0); UMIC TRIGGER UA YES; Urine Blood Negative (Negative); Urine Ketones Negative (Negative); Urine Protein Negative (Neg-Trace)
[2025-04-29 17:45] LABS: Bacteria Urine None Seen (None Seen); Hyaline Casts Urine 0-2 /LPF (0-2); RBC Urine 0-2 /HPF (0-2); Squamous Epithelial Cell Urine 0-2 /HPF (0-2); WBC Urine 0-5 /HPF (0-5)
[2025-04-29 19:11] VITALS: BP 154/70; PULSE 78; RESP 16; TEMP 36.9; O2SAT 95
[2025-04-29] MEDS: Gabapentin 100 MG CAPSULE 200 MG PO (20:42)
[2025-04-29 23:52] VITALS: BP 148/82; PULSE 83; RESP 18; TEMP 36.1; O2SAT 96
[2025-04-30 03:42] VITALS: BP 131/68; PULSE 79; RESP 18; TEMP 36.3; O2SAT 95
[2025-04-30 07:45] VITALS: BP 178/77; PULSE 70; RESP 16; TEMP 36.5; O2SAT 96
[2025-04-30] MEDS: methIMAzole 5 MG TABLET 2.5 MG PO (08:01)
[2025-04-30] MEDS: Cholecalciferol (Vitamin D3) 25 MCG TABLET PO (08:01)
[2025-04-30] MEDS: Acetaminophen 325 MG TABLET 975 MG PO ×2 (08:01→15:09)
[2025-04-30] MEDS: rOPINIRole HCL 1 MG TABLET PO (08:02)
[2025-04-30] MEDS: Heparin Sodium,Porcine 5,000 UNIT/ML VIAL 5000 UNIT SUBCUT (08:02)
[2025-04-30] MEDS: Gabapentin 100 MG CAPSULE 200 MG PO (08:02)
[2025-04-30] MEDS: Erythromycin Base 0.5% Oph Oin 1 GM TUBE 1 CM EYE-BOTH ×3 (08:02→17:21)
[2025-04-30] MEDS: Atorvastatin Calcium 20 MG TABLET PO (08:02)
[2025-04-30] MEDS: 0.9 % Sodium Chloride Flush 3 ML SYRINGE IVFLUSH ×2 (08:05→15:11)
[2025-04-30] MEDS: Fluticasone Propionate Nasal 16 GM SPRAY 1 SPRAY NOSTRIL-B (08:06)
[2025-04-30] MEDS: Lidocaine 4 % Patch ADH..PATCH 2 PATCH TRANSDERMA (08:07)
[2025-04-30] MEDS: amLODIPine Besylate 5 MG TABLET PO (08:41)
[2025-04-30 12:00] VITALS: BP 171/74; PULSE 77; RESP 18; O2SAT 95
--- NOTE | 2025-04-30 13:49 | P.DS_ITS ---
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 She denied numbness to the genital area, difficulty defecating, diarrhea or urinating. Her last bowel movement was yesterday and was normal. She does have difficulty walking due to the pain. Pain relieves when leaning forward. She has been taking Tylenol without improvement. She does experience tingling sensation to both feet. She denied any fever, trauma or falls. Patient denied any acute urinary symptoms. In the ED, her vital signs are unremarkable. Blood workup was remarkable for hyponatremia, 125 (increased to 128 over 3 hours), the results of hypoglycemia. Potassium is 4 0.8, calcium 9.1, BUN 22 and anion gap 12. Glucose is 164. Serum and urine osmolality are 270 and 379, respectively. Total bilirubin is 1.2. Other LFTs are normal. TSH 1.00. Urinalysis is unremarkable except for mild leukocyte steroids. Urine sodium is 36.0, creatinine 93.70. Lumbar CT scan without IV contrast, multilevel lumbar spondylosis resulting in grade 1 anterolisthesis L5-S1 and central spinal canal stenosis from L3-4 to L5-S1 and bilateral neural foraminal stenosis at L5-S1 and L4-5. Left hip and pelvic x- ray showed no acute fractures. ED tx: Requip 1 mg PO, morphine 2 mg IV, lidocaine 4% patch (1) patch, ketorolac 30 mg IV. Hospital course: Hospital course: Patient was admitted to the hospital for hyponatremia and lower back pain. Hyponatremia, likely SIADH: Patient was placed on fluid restriction, TSH and random cortisol level normal. Duloxetine was placed on hold. With the above management sodium seems to be improved. NICK:Decreased p.o. intake, urinary retention, lisinopril: Received IV hydration, lisinopril placed on hold, monitored urinary retention for PVRs: Patient seems to be improved significantly with the above supportive care-NICK improved., we will hold lisinopril. Monitor for any urinary retention in rehab. Monitor BMP closely for hyponatremia and NICK. Further use of lisinopril after repeating BMP if needed for blood pressure. Lower back pain: CT of lumbar spine:Multilevel lumbar spondylosis resulting in grade 1 anterolisthesis L5-S1 and central spinal canal stenosis from L3-4 to L5- S1 and bilateral neuroforamina stenosis at L5-S1 and L4-5 levels. Moves all extremities, walking better-pain control with lidocaine patch, Tylenol, gabapentin, muscle relaxer. Further management outpatient with PCP. Normocytic anemia: Iron levels and iron sats are low, ferritin normal: Monitor CBC, added iron for possible might have component of iron-deficiency, in addition further workup outpatient with the PCP, consider colonoscopy outpatient. plan: moniter cbc and bmp hold lisinopril until repeat BMP and if needed for BP then can reintroduce if renal function allows. Encouraged for p.o. intake, hydration Consider outpatient management for lower back pain, spinal canal stenosis with PCP as well as outpatient anemia workup workup and management, consider colonoscopy if needed. Above management discussed with the patient and her daughter in detail length with the help of motor vehicle parts interpreter, both understand and in agreement with the above plan, time spent 40 minute, all questions answered, staff was present during conversation. Time Attestation Total time managing care of this patient today: 40 mintues. Discharge Coordination Time (in mins): 40 min Quality: Safe Use of Opioids Does Pt have an Active Cancer Diagnosis on the Problem List?: No Quality: Stroke Does the patient have a stroke diagnosis?: No Physical Exam Vital Signs: Vital Signs: Last Vital Signs Temp 97.7 F 04/30/25 07:45 Pulse 77 04/30/25 12:00 Resp 18 04/30/25 12:00 BP 171/74 H 04/30/25 12:00 Pulse Ox 95 04/30/25 12:00 O2 Del Method Room Air 04/30/25 12:00 O2 Flow Rate 2 04/29/25 23:52 BMI result Body Mass Index 29.1 Appearance: awake ,weak cvs: rrr, [id number]. res: clear to auscultation ,no rhonchii or wheezing abd: no rebound or guarding ,nt, bs present. suprapubic discomfort. ext pulses present , no cyanosis . neuro: moves all ext . DS: Data Data Completed and Pending Labs on day of discharge: Laboratory Results - last 24 hr 04/29/25 16:06 Urine Color Yellow Urine Appearance Clear Urine pH 6.5 Ur Specific [place] 1.010 Urine Protein Negative Urine Glucose (UA) Negative Urine Ketones Negative Urine Blood Negative Urine Nitrite Negative Ur Leukocyte Esterase Small (1+) H Urine RBC 0-2 Urine WBC 0-5 Ur Squamous Epith Cells 0-2 Urine Bacteria None Seen Hyaline Casts 0-2 Imaging Chest x-ray: Radiologist's impression: ITS Impressions Lumbar Spine X-Ray 04/27/25 12:36 IMPRESSION: Multilevel thoracolumbar spondylosis. 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 Hip/Pelvis X-Ray 04/27/25 13:25 IMPRESSION: No acute bony abnormalities of the left hip or pelvis. Discharge Plan Discharge Anticipated Discharge Date/Time: 04/30/25 13:34 Patient Disposition: Xfer SNF Discharge Diagnosis: Lower back pain, hyponatremia. Referrals: salty cowan [Other] - 1 Week Evi Thomson MD [Primary Care Provider] - 1 Week Discharge Medications: New methocarbamol 500 mg Tablet 500 mg PO TID Qty: 1 0RF gabapentin 100 mg Capsule 200 mg PO BID Qty: 1 0RF acetaminophen 325 mg Tablet 975 mg PO Q6H PRN (Reason: pain) Qty: 1 0RF Continued Prolia 60 mg/mL syringe 60 mg subcut [id number] methimazole 5 mg tablet 2.5 mg PO DAILY Qty: 45 4RF ropinirole 2 mg tablet 1 mg PO BID Qty: 30 6RF Rx Instructions: at 4pm and at bedtime amlodipine 5 mg tablet 5 mg PO DAILY erythromycin 5 mg/gram (0.5 %) ointment 1 cm ophthalmic (eye) QID fluticasone propionate 50 mcg/actuation spray,suspension 1 spray intranasal DAILY atorvastatin 20 mg tablet 20 mg PO DAILY cholecalciferol (vitamin D3) [Vitamin D3] 25 mcg (1,000 unit) capsule 25 mcg PO DAILY Qty: 90 1RF Held benazepril 10 mg tablet 10 mg PO DAILY Hold Instructions: Resume on 05/09/25. hold lisinopril until repeat bmp ,start if bp allows. Discontinued gabapentin 300 mg capsule 300 mg PO BEDTIME duloxetine 20 mg capsule,delayed release(DR/EC) 20 mg PO DAILY Discharge Orders: Discharge Order (Routine); Ordered 04/30/25 Ordered By: Rodolfo Leslie Diet: Advance to usual diet Activity on Discharge: As tolerated Stand Alone Forms: Patient Portal Discharge page Print Language: Maltese Care Plan Goals: as below. Health Concerns: moniter cbc and bmp hold lisinopril until repeat BMP and if needed for BP then can reintroduce if renal function allows. Encouraged for p.o. intake, hydration Consider outpatient management for lower back pain, spinal canal stenosis with PCP as well as outpatient anemia workup workup and management, consider colonoscopy if needed. Plan of Treatment: As above. Assessment: As above. Discharge Date/Time: 04/30/25 17:46
[2025-04-30 15:14] VITALS: BP 158/83; PULSE 80; RESP 17; TEMP 36.3; O2SAT 95
--- NOTE | 2025-04-30 15:15 | HO.PM.IMPN ---
Subjective Subjective Date of Service: 05/01/25 Review of Systems seems improving ambulating better Review of Systems: Yes all other systems are reviewed and are negative Physical Exam Vital Signs: Vital Signs: Last Vital Signs Temp 97.7 F 04/30/25 07:45 Pulse 77 04/30/25 12:00 Resp 18 04/30/25 12:00 BP 171/74 H 04/30/25 12:00 Pulse Ox 95 04/30/25 12:00 O2 Del Method Room Air 04/30/25 12:00 O2 Flow Rate 2 04/29/25 23:52 BMI result Body Mass Index 29.1 Appearance: awake ,weak cvs: rrr, [id number]. res: clear to auscultation ,no rhonchii or wheezing abd: no rebound or guarding ,nt, bs present. suprapubic discomfort. ext pulses present , no cyanosis . neuro: moves all ext . Objective Data Active Medications Acetaminophen (Acetaminophen 325 Mg Tablet) 975 mg PO Q6H [facility] Last Admin: 04/30/25 15:09 Dose: 975 mg Documented By: SOLEDAD Amlodipine Besylate (Amlodipine Besylate 5 Mg Tablet) 5 mg PO DAILY [facility]; Protocol Last Admin: 04/30/25 08:41 Dose: 5 mg Documented By: SOLEDAD Atorvastatin Calcium (Atorvastatin Calcium 20 Mg Tablet) 20 mg PO DAILY [facility] Last Admin: 04/30/25 08:02 Dose: 20 mg Documented By: SOLEDAD Erythromycin (Erythromycin Base 0.5% Oph Oin 1 Gm Tube) 1 cm EYE-BOTH QID [facility] Last Admin: 04/30/25 13:04 Dose: 1 cm Documented By: SOLEDAD Fluticasone Propionate (Fluticasone Propionate Nasal 16 Gm [place]) 1 spray NOSTRIL-B DAILY [facility] Last Admin: 04/30/25 08:06 Dose: 1 spray Documented By: SOLEDAD Gabapentin (Gabapentin 100 Mg Capsule) 200 mg PO BID [facility] Last Admin: 04/30/25 08:02 Dose: 200 mg Documented By: SOLEDAD Heparin Sodium (Porcine) (Heparin Sodium,Porcine 5,000 Unit/Ml Vial) 5,000 unit SUBCUT Q12H [facility] Last Admin: 04/30/25 08:02 Dose: 5,000 unit Documented By: SOLEDAD Lidocaine (Lidocaine 4 % Patch Adh..Patch) 2 patch TRANSDERMA DAILY [facility]; Protocol Last Admin: 04/30/25 08:07 Dose: 2 patch Documented By: SOLEDAD Magnesium Hydroxide (Milk Of Magnesia 30 Ml Oral.Susp) 30 ml PO DAILY PRN PRN Reason: Constipation Methimazole (Methimazole 5 Mg Tablet) 2.5 mg PO DAILY [facility] Last Admin: 04/30/25 08:01 Dose: 2.5 mg Documented By: SOLEDAD Methocarbamol (Methocarbamol 500 Mg Tablet) 500 mg PO TID [facility] Ropinirole HCl (Ropinirole Hcl 1 Mg Tablet) 1 mg PO BID [facility] Last Admin: 04/30/25 08:02 Dose: 1 mg Documented By: SOLEDAD Sodium Chloride (0.9 % Sodium Chloride Flush 3 Ml Syringe) 3 ml IVFLUSH QSHIFT [facility] Last Admin: 04/30/25 15:11 Dose: 3 ml Documented By: SOLEDAD Vitamin D (Cholecalciferol (Vitamin D3) 25 Mcg Tablet) 25 mcg PO DAILY [facility] Last Admin: 04/30/25 08:01 Dose: 25 mcg Documented By: SOLEDAD Labs 04/28/25 06:45 04/29/25 05:56 Labs: Laboratory Results - last 24 hr 04/29/25 16:06 Urine Color Yellow Urine Appearance Clear Urine pH 6.5 Ur Specific [place] 1.010 Urine Protein Negative Urine Glucose (UA) Negative Urine Ketones Negative Urine Blood Negative Urine Nitrite Negative Ur Leukocyte Esterase Small (1+) H Urine RBC 0-2 Urine WBC 0-5 Ur Squamous Epith Cells 0-2 Urine Bacteria None Seen Hyaline Casts 0-2 Quality Stroke Does the patient have a stroke diagnosis?: No VTE Prior VTE?: No VTE Risk Level:: Medical - moderate - high VTE Device Contraindication: Treatment Not Indicated VTE Drug Contraindication: N/A - Med Ordered
--- NOTE | 2025-04-30 15:22 | MHC.CM.PN ---
pt to salty maravilla at 5 dgter notified
== END 2025-04-30 17:46 | disposition skilled nursing facility (03) | DRG 644 ==
LOC: HO.ED 12:12 → HO.EDOVER 16:32 → HO.S3 17:08
PROVIDERS: Physician Assistant Medical; Admitting Provider Internal Medicine; Emergency Provider Emergency Medicine Emergency Medical Services; PCP Internal Medicine; Visit Provider Internal Medicine
DX: E22.2 Syndrome of inappropriate secretion of antidiuretic hormone (principal); N17.9 Acute kidney failure, unspecified; I10 Essential (primary) hypertension; E78.5 Hyperlipidemia, unspecified; E16.2 Hypoglycemia, unspecified; D64.9 Anemia, unspecified; E05.90 Thyrotoxicosis, unspecified without thyrotoxic crisis or storm; M48.07 Spinal stenosis, lumbosacral region; Z79.51 Long term (current) use of inhaled steroids; Z79.899 Other long term (current) drug therapy
CPT/HCPCS: 36415; 72100; 72131; 73502; 80048; 80076; 81001; 81003; 82533; 82728; 83540; 83930; 83935; 84295; 84300; 84443; 85025; 87086; 97162; 99285; J1644; J1885; J2270; J7120; P9047

== ENCOUNTER → 2025-04-27 11:44 | Outpatient (BNV) | payer MEDICARE, MEDICAID, SELFPAY | PROVIDERS: Emergency Provider Emergency Medicine Emergency Medical Services; PCP Internal Medicine; Visit Provider Radiology Diagnostic Radiology | DX: M47.815 Spondylosis without myelopathy or radiculopathy, thoracolumbar region (principal); M25.552 Pain in left hip; M48.061 Spinal stenosis, lumbar region without neurogenic claudication | CPT/HCPCS: 73502 ==

== ENCOUNTER → 2025-04-27 16:29 | Outpatient (BNV) | payer MEDICARE, MEDICAID, SELFPAY | PROVIDERS: Admitting Provider Internal Medicine; Emergency Provider Emergency Medicine Emergency Medical Services; PCP Internal Medicine; Visit Provider Internal Medicine | DX: M54.50 Low back pain, unspecified (principal); E87.1 Hypo-osmolality and hyponatremia | CPT/HCPCS: 99231; 99232 ==

== ENCOUNTER 2025-05-01 05:50 | Outpatient (REF) | payer MEDICARE, MEDICAID, SELFPAY ==
[2025-05-01 05:52] LABS: MANUAL DIFF FLAG NO
[2025-05-01 06:42] LABS: Basophils Percent Auto 0.6 % (0-2); Eosinophils Absolute Auto 0.1 X10*3/uL (0.0-0.4); Eosinophils Percent Auto 2.4 % (0-4); Hematocrit 37.8 % (37.0-47.0); Hemoglobin 12.1 g/dl (12.0-16.0); Imm Gran Abs Auto 0.01 X10*3/uL (0.00-0.03); Imm Gran Pct Auto 0.2 % (0.0-0.4); Lymphocytes Absolute Auto 1.7 X10*3/uL (1.2-4.9); Mean Corpuscular Hemoglobin 26.5 pg (27.0-33.0); Mean Corpuscular Volume 82.9 fL (80.0-98.0); Mean Platelet Volume 10.5 fL (9.4-12.3); Monocytes Absolute Auto 0.5 X10*3/uL (0.1-1.2); Monocytes Percent Auto 9.7 % (2-11); Neutrophils Absolute Auto 2.6 x10*3/uL (2.0-8.3); Neutrophils Percent Auto 52.1 % (45-73); Platelet Count 200 X10*3/uL (160-400); Red Blood Count 4.56 X10*6/uL (4.20-5.50); Red Cell Distribution Width 13.9 % (11.0-16.0); White Blood Count 4.9 X10*3/uL (4.8-10.8)
[2025-05-01 06:45] LABS: Alanine Aminotransferase 13 U/L (0-31); Albumin Level 4.3 g/dL (3.5-5.0); Alkaline Phosphatase 70 U/L (39-117); Anion Gap 14 (12-20); Aspartate Amino Transferase 19 U/L (5-31); Bilirubin Total 0.6 mg/dL (0.0-1.0); Blood Urea Nitrogen 27 mg/dL (9-16); Calcium 9.5 mg/dL (8.4-10.2); Carbon Dioxide 24 mmol/L (22-29); Chloride 106 mmol/L (96-108); Estimated Glomerular Filt Rate 44; Glucose Random 90 mg/dL (60-115); Potassium 4.4 mmol/L (3.3-5.1); Sodium 140 mmol/L (135-145); Total Protein 7.5 g/dL (6.5-8.0)
== END 2025-05-01 05:51 | disposition home or self-care (01) ==
LOC: HO.MMNH2L 05:50
PROVIDERS: Visit Provider Nurse Practitioner Family
DX: I10 Essential (primary) hypertension (principal)
CPT/HCPCS: 36415; 80053; 85025

== ENCOUNTER 2025-05-07 05:46 | Outpatient (REF) | payer MEDICARE, MEDICAID, SELFPAY ==
[2025-05-07 05:46] LABS: MANUAL DIFF FLAG NO
--- OUTSIDE RECORDS SUMMARY | 2025-05-07 05:48 | XMS_ITS | Clinical Summary ---
Author Organization [facility] Address [address] [place] [address] Care Team Providers Care Coiled Coil Inspector Name Role Phone Evi Thomson MD Primary Care Provider [phone] Medications No known medications Active Problems No [...] 87 09/03/2023 10:15 AM EDT Temperature 36.7 C (98 F) 09/03/2023 10:15 AM EDT Respiratory Rate 24 [...] age to complete this topic Care Teams Coiled Coil Inspector Relationship Specialty Start Date End Date Evi Thomson MD [address] [place] [address] [phone] PCP - General Family Medicine 09/03/23
[2025-05-07 07:00] LABS: Anion Gap 11 (12-20); Blood Urea Nitrogen 28 mg/dL (9-16); Calcium 9.2 mg/dL (8.4-10.2); Carbon Dioxide 24 mmol/L (22-29); Chloride 107 mmol/L (96-108); Estimated Glomerular Filt Rate 45; Glucose Random 89 mg/dL (60-115); Potassium 4.8 mmol/L (3.3-5.1); Sodium 137 mmol/L (135-145)
[2025-05-07 07:08] LABS: Basophils Percent Auto 0.6 % (0-2); Eosinophils Absolute Auto 0.1 X10*3/uL (0.0-0.4); Eosinophils Percent Auto 2.4 % (0-4); Hematocrit 37.3 % (37.0-47.0); Imm Gran Abs Auto 0.02 X10*3/uL (0.00-0.03); Imm Gran Pct Auto 0.4 % (0.0-0.4); Lymphocytes Absolute Auto 1.9 X10*3/uL (1.2-4.9); Lymphocytes Percent Auto 36.5 % (20-40); Mean Corpuscular HGB Conc 32.2 g/dl (31.0-35.0); Mean Corpuscular Hemoglobin 26.5 pg (27.0-33.0); Mean Corpuscular Volume 82.5 fL (80.0-98.0); Mean Platelet Volume 10.1 fL (9.4-12.3); Monocytes Absolute Auto 0.5 X10*3/uL (0.1-1.2); Monocytes Percent Auto 9.1 % (2-11); Neutrophils Absolute Auto 2.6 x10*3/uL (2.0-8.3); Platelet Count 197 X10*3/uL (160-400); Red Blood Count 4.52 X10*6/uL (4.20-5.50); Red Cell Distribution Width 13.8 % (11.0-16.0); White Blood Count 5.1 X10*3/uL (4.8-10.8)
== END 2025-05-07 05:47 | disposition home or self-care (01) ==
LOC: HO.MMNH2L 05:46
PROVIDERS: Visit Provider Nurse Practitioner Family
DX: I10 Essential (primary) hypertension (principal)
CPT/HCPCS: 36415; 80048; 85025

== ENCOUNTER 2025-05-14 07:37 | Outpatient (REF) | payer MEDICARE, MEDICAID, SELFPAY ==
[2025-05-14 06:32] LABS: MANUAL DIFF FLAG NO
[2025-05-14 07:00] LABS: Basophils Absolute Auto 0.1 X10*3/uL (0.0-0.2); Basophils Percent Auto 0.9 % (0-2); Eosinophils Absolute Auto 0.1 X10*3/uL (0.0-0.4); Eosinophils Percent Auto 2.4 % (0-4); Hematocrit 36.4 % (37.0-47.0); Hemoglobin 11.4 g/dl (12.0-16.0); Imm Gran Abs Auto 0.02 X10*3/uL (0.00-0.03); Imm Gran Pct Auto 0.4 % (0.0-0.4); Lymphocytes Absolute Auto 2.1 X10*3/uL (1.2-4.9); Lymphocytes Percent Auto 38.4 % (20-40); Mean Corpuscular HGB Conc 31.3 g/dl (31.0-35.0); Mean Corpuscular Hemoglobin 26.5 pg (27.0-33.0); Mean Corpuscular Volume 84.5 fL (80.0-98.0); Mean Platelet Volume 10.7 fL (9.4-12.3); Monocytes Absolute Auto 0.5 X10*3/uL (0.1-1.2); Monocytes Percent Auto 9.3 % (2-11); Neutrophils Absolute Auto 2.6 x10*3/uL (2.0-8.3); Neutrophils Percent Auto 48.6 % (45-73); Platelet Count 213 X10*3/uL (160-400); Red Blood Count 4.31 X10*6/uL (4.20-5.50); Red Cell Distribution Width 14.1 % (11.0-16.0); White Blood Count 5.4 X10*3/uL (4.8-10.8)
[2025-05-14 07:19] LABS: Anion Gap 11 (12-20); Blood Urea Nitrogen 30 mg/dL (9-16); Calcium 8.1 mg/dL (8.4-10.2); Carbon Dioxide 23 mmol/L (22-29); Chloride 110 mmol/L (96-108); Estimated Glomerular Filt Rate 42; Glucose Random 89 mg/dL (60-115); Potassium 4.7 mmol/L (3.3-5.1); Sodium 139 mmol/L (135-145)
--- OUTSIDE RECORDS SUMMARY | 2025-05-14 07:40 | XMS_ITS | Clinical Summary ---
Author Organization [facility] Address [address] [place] [address] Care Team Providers Care Global Lead Name Role Phone Evi Thomson MD Primary Care Provider [phone] Medications No known medications Active Problems No [...] age to complete this topic Care Teams Global Lead Relationship Specialty Start Date End Date Evi Thomson MD [address] [place] [address] [phone] PCP - General Family Medicine 09/03/23
== END 2025-05-14 07:38 | disposition home or self-care (01) ==
LOC: HO.MMNH2L 07:37
PROVIDERS: Visit Provider Nurse Practitioner Family
DX: I10 Essential (primary) hypertension (principal)
CPT/HCPCS: 36415; 80048; 85025

== ENCOUNTER 2025-06-11 11:23 | Outpatient (REF) | payer MEDICARE, MEDICAID, SELFPAY ==
--- OUTSIDE RECORDS SUMMARY | 2025-06-11 12:39 | XMS_ITS | Encounter Summary ---
Author Organization [facility] Address [address] [facility] [address] [place] [address] Phone Care Team Providers Care Boilermaker Welder Name Role Phone Evi Thomson MD Primary Care Provider [phone] Encounter Details Date Type Department Care Team ([facility] Contact Info) Description 02/11/2021 Orders Only [facility] [address] [facility] [address] [place] [address] ProviderFuentes MD Social History Tobacco Use Types [...] Visit [facility] [address] [place] [phone] Rikki Pratt MD [address] [facility] [address] [place] [address] documented as of this encounter Procedures Procedure Name Priority Date/Time Associated Diagnosis Comments EXT RESULT ENTRY Routine 02/11/2021 documented in this encounter Results * EXT RESULT ENTRY (02/11/2021) us Historical Provider LAB BLOOD ORDERABLES Clara l Result documented in this encounter Visit Diagnoses Not on filedocumented in this encounter Care Teams Boilermaker Welder Relationship Specialty Start Date End Date Evi Thomson MD [address] [place] [phone] PCP - General 11/25/20 documented as of this encounter
--- OUTSIDE RECORDS SUMMARY | 2025-06-11 12:39 | XMS_ITS | Encounter Summary ---
Author Organization [facility] Address [address] [facility] 7[address] [place] [address] Care Team Providers Care Toolmaker Name Role Phone Evi Thomson MD Primary Care Provider + Valerio Sweet PharmD Unavailable Reason for Visit * Reason Comments Med Refill Encounter Details Date Type Department Care Team ([facility] st Contact Info) Description 05/14/2024 Refill [facility] [address] [place] [address] Amrita Alfred FNP [address] [place] [address] Social History Tobacco Use Types Packs/Day Years [...] Care Team (Late st Contact Info) Description 08/17/2025 10:30 AM EDT Office Visit [facility] [address] [place] [address] Evi Thomson MD [address] [place] [address] documented as of this encounter Goals Goal Patient Goal Type Associated Problems Recent Progress Patient-Stated? Author Blood Pressure < 140/90 Blood Pressure 128/60( 025 10:12 AM EDT) No Valerio Sweet, PharmMckenna documented as of this encounter Visit Diagnoses Not on filedocumented in this encounter Care Teams Toolmaker Relationship Specialty Start Date End Date Evi Thomson MD [address] [place] [phone] PCP - General Family Medicine 03/13/19 Valerio Sweet, PharmD [address] [place] [phone] Pharmacist Internal Medicine 11/02/22 [facility] 05/17/25 documented as of this encounter
--- OUTSIDE RECORDS SUMMARY | 2025-06-11 12:39 | XMS_ITS | Clinical Summary ---
Author Organization [facility] Address [address] [place] [address] Care Team Providers Care Chief Chemist Name Role Phone Evi Thomson MD Primary Care Provider [phone] Medications No known medications Active Problems No [...] 2024 10/17/2021, 03/20/2021, 02/20/2021 Influenza Vaccine (#1) 2025 , 10/01/2020, 08/24/2019 Hepatitis B Vaccines Aged Out No long er eligible based on patient's age to complete this topic RSV Ped < 20 months Aged Out No longe r eligible based on patient's age to complete this topic Care Teams Chief Chemist Relationship Specialty Start Date End Date Evi Thomson MD [address] [place] [address] [phone] PCP - General Family Medicine 09/03/23
--- OUTSIDE RECORDS SUMMARY | 2025-06-11 12:39 | XMS_ITS ---
Author Name [facility] Organization Unknown Results Test Name/Text Value Interpretation Date Range Source CHLORIDE SERPL SC[facility] 103.0 mmol/L Normal 09/03/2023 98 - 1 07 [facility] CALCIUM SERPL [facility] 9.2 mg/dL Normal 09/03/2023 8.4 - 10.2 [facility] HCO3 SER [facility] 21.0 mmol/L Below low normal 09/03/2023 24 - 3 2 [facility] ANION GAP SERPL [facility] 10.0 mmol/L Normal 09/03/2023 5 - 14 [facility] BUN SERPL [facility] 33.0 mg/dL Above high normal 09/03/2023 7 - 1 7 [facility] Glomerular filtration rate/1.73 sq M. predicted 37.0 Below low normal 09/03/2023 60 - [facility] SODIUM SERPL [facility] 134.0 mmol/L Below low normal 09/03/2023 1 35 - 145 [facility] CREAT SERPL [facility] 1.4 mg/dL Above high normal 09/03/2023 0.5 - 1 [facility] POTASSIUM SERPL [facility] 5.5 mmol/L Above high normal 09/03/2023 3.5 - 5.1 [facility] GLUCOSE SERPL [facility] 104.0 mg/dL Normal 09/03/2023 70 - 199 [facility] LYMPHOCYTES NFR BLD AUTO 15.0 % Below low normal 09/03/2023 20 - 48 [facility] NEUTROPHILS NO. BLD AUTO 7.1 K/uL Normal 09/03/2023 1.8 - 7.8 [facility] BASOPHILS IN BLOOD BY AUTOMATED COUNT 0.0 K/uL Normal 09/03/2023 0 - 0.2 [facility] BASOPHILS NFR BLD AUTO 0.4 % Normal 09/03/2023 0 - 2 [facility] EOSINOPHIL NO. BLD AUTO 0.1 K/uL Normal 09/03/2023 0 - 0.5 [facility] MONOCYTES NFR BLD AUTO 9.5 % Normal 09/03/2023 2 - 12 [facility] MONOCYTES NO. BLD AUTO 0.9 K/uL Above high normal 09/03/2023 0 - 0.8 [facility] WBC NO. BLD AUTO 7.8 K/uL Normal 09/03/2023 4 - 10.5 [facility] EOSINOPHIL NFR BLD AUTO 0.8 % Normal 09/03/2023 0 - 6 [facility] LYMPHOCYTES NO. BLD AUTO 1.4 K/uL Normal 09/03/2023 1 - 3.2 [facility] NEUTROPHILS NFR BLD AUTO 74.3 % Above high normal 09/03/2023 44 - 74 [facility] DIFFERENTIAL TYPE AUTOD Normal 09/03/2023 C [facility] HGB BLD MCNC 11.5 g/dL Below low normal 09/03/2023 12.5 - 16 [facility] RDW RBC AUTO RTO 15.3 % Normal 09/03/2023 12.1 - 16.2 [facility] MCHC RBC AUTO MCNC 32.6 g/dL Normal 09/03/2023 32 - 36 [facility] MCH RBC QN AUTO 28.2 pg Normal 09/03/2023 25 - 33 [facility] RBC NO. BLD AUTO 4.08 M/uL Below low normal 09/03/2023 4.2 - 5.4 [facility] HCT VFR BLD AUTO 35.4 % Below low normal 09/03/2023 37 - 47 [facility] MCV RBC AUTO 86.7 fL Normal 09/03/2023 78 - 100 [facility] MAGNESIUM SERPL MCNC 2.1 mg/dL Normal 09/03/2023 1.7 - 2. 8 [facility] Troponin I SerPl HS-mCnc 5.0 ng/L Normal 09/03/2023 0 - 14 [facility] Encounters Encounter Type Encounter Reason Primary Diagnosis Location Date Emergency Weakness Weakness [facility] Care Team Organization Name Specialty Phone Email Start Date End Da te [facility] [address] [facility] 3 03/06/[address] [facility] LORIN MINA Primary Care 09/03/2023 09/03/2023
[2025-06-11 13:46] LABS: Anion Gap 14 (12-20); Blood Urea Nitrogen 24 mg/dL (9-16); Calcium 8.9 mg/dL (8.4-10.2); Carbon Dioxide 22 mmol/L (22-29); Chloride 103 mmol/L (96-108); Estimated Glomerular Filt Rate 38; Magnesium 2.2 mg/dL (1.6-2.6); Potassium 4.7 mmol/L (3.3-5.1); Sodium 134 mmol/L (135-145)
== END 2025-06-11 11:24 | disposition home or self-care (01) ==
LOC: HO.HHCL 11:23
PROVIDERS: PCP Internal Medicine; Visit Provider Internal Medicine
DX: E87.1 Hypo-osmolality and hyponatremia (principal)
CPT/HCPCS: 36415; 80048; 83735

== ENCOUNTER 2025-08-13 12:56 | Outpatient (AMB) | payer MEDICARE, MEDICAID, SELFPAY ==
--- NOTE | 2025-08-13 12:58 | MHC.OFFVIS ---
Intake Visit Reasons: New Pt - Lt knee OA f/u last inj 08/31/22 Intake Note: Linda is an 84 year old female who presents today as a New Patient with complaints of Left Knee Pain. She was last seen in 2021 where the left knee was injected and she was provided with a knee sleeve. Has not seen Pain mgmt since 2021. Today she reports that she has having worsening pain of the left knee. The last injection was helpful and she would like to repeat this today. She is taking Tylenol with mild relief Allergies No Known Allergies Allergy (Verified 08/15/25 15:02) HPI HPI New Pt - Lt knee OA f/u last inj 08/31/22: Details: Linda is an 84 year old female who presents today as a New Patient with complaints of Left Knee Pain. She was last seen in 2021 where the left knee was injected and she was provided with a knee sleeve. Has not seen Pain mgmt since 2021. Today she reports that she has having worsening pain of the left knee. The last injection was helpful and she would like to repeat this today. She is taking Tylenol with mild relief PFSH Medical History Obstructive sleep apnea hypopnea, mild Restless legs syndrome (RLS) Hypersomnia Snoring Acute hyponatremia Osteoporosis Hypertensive emergency On beta april at home Vitamin D deficiency Goiter Hyperparathyroidism Subclinical hyperthyroidism Effusion, left knee Renal impairment High cholesterol Hypertension Left knee pain Surgical History H/O colonoscopy History of esophagogastroduodenoscopy (EGD) Hx of cataract extraction Hx of hysterectomy Family History Father No problems noted. Mother No problems noted. Social History Household Members: None Household Members Other:: lives with her daughter Housing: House Do you presently have visiting nurse or other home services: No Alcohol intake: never Patient Tobacco Use Status: Never used Tobacco e-Cigarette/Vaping Use: Never Used Second Hand Smoke Exposure: No service: No Current occupational status: unemployed Physical Exam Exam Exam: Pleasant woman in no acute distress. Retropatellar tenderness to palpation laterally. Left knee is notable for some mild tenderness to palpation along the medial and lateral joint line. No effusion. Positive gait antalgia. 5-125 degrees motion. Office Procedures Joint Inj/Aspir; Non-Pain Clin Joint Injection/Drain Details: Injected 1 mL of Decadron and 3 mL 1% lidocaine and 3 mL of 0.25% Marcaine. Site was prepped using aseptic technique. Patient tolerated the procedure well. Shoulders, Hips, Knees, Knee Large Joint Injection : Left Knee Coding Procedure code (CPT) selection complete Assessment & Plan Assessment & Plan (1) Patellofemoral arthritis of left knee: Code(s): M17.12 - Unilateral primary osteoarthritis, left knee Category: Medical Plan: 84-year-old woman with left knee arthritis. I injected her left knee. She can return for repeat injections in 3 months if she so desires. Coding Level of Care Code Est Pt Level 3 (88852) Diagnoses Patellofemoral arthritis of left knee M17.12 CPT Codes Shoulders, Hips, Knees, - Knee Large Joint Injection : Left Knee ([id number])
--- OUTSIDE RECORDS SUMMARY | 2025-08-13 14:05 | XMS_ITS | Clinical Summary ---
Author Organization [facility] Address [address] [place] [phone] Phone Care Team Providers Care Plastic Maker Name Role Phone Evi Thomson MD Primary Care Provider Allergies No known active allergies Medications atorvastatin [...] Encounters Date Type Department Care Team Description 07/19/2025 3:15 PM EDT Office Visit [facility] [address] [place] [phone] Rikki Pratt MD Stage 3b chronic kidney disease (HCC) (Primary Dx); Hypertensive chronic kidney disease; Renal osteodystrophy; Essential hypertension from Last 3 Months Family History Medical [...] Care Team (Late st Contact Info) Description 01/17/2026 1:15 PM EST Office Visit [facility] [address] [place] [address] Rikki Pratt MD [address] [facility] [address] [place] [address] Health Maintenance Due Date Last Done Comments Influenza Vaccine (#1) 2025 , 08/24/2019 Pneumococcal Vaccine: 50+ Years Completed 04/04/2024 Pneumococcal Vaccine: Peds (0 to 5 Years) and At-Risk Patients (6 to 49 Years) Discontinued 04/04/2024 Hepatitis B Vaccine Aged Out No longe r eligible based on patient's age to complete this topic Insurance Medicaid [place] Care Teams Plastic Maker Relationship Specialty Start Date End Date Evi Thomson MD [address] [place] [phone] PCP - General 11/25/20
--- OUTSIDE RECORDS SUMMARY | 2025-08-13 14:05 | XMS_ITS | Encounter Summary ---
Author Organization [facility] Address [address] [facility] [address] [place] [address] Phone Care Team Providers Care Race Relations Professor Name Role Phone Evi Thomson MD Primary Care Provider [phone] Encounter Details Date Type Department Care Team ([facility] Contact Info) Description 02/11/2021 Orders Only [facility] [address] [facility] [address] [place] [address] ProviderFuentes MD Social History Tobacco [...] Upcoming Encounters Date Type Department Care Team ([facility] Contact Info) Description 01/17/2026 1:15 PM EST Office Visit [facility] [address] [place] [phone] Rikki Pratt MD [address] [facility] [address] [place] [address] documented as of this encounter Procedures Procedure Name Priority Date/Time Associated Diagnosis Comments EXT RESULT ENTRY Routine 02/11/2021 documented in this encounter Results * EXT RESULT ENTRY (02/11/2021) us Historical Provider LAB BLOOD ORDERABLES Clara l Result documented in this encounter Visit Diagnoses Not on filedocumented in this encounter Care Teams Race Relations Professor Relationship Specialty Start Date End Date Evi Thomson MD [address] [place] [id number] PCP - General 11/25/20 documented as of this encounter
== END 2025-08-13 13:23 | disposition home or self-care (01) ==
LOC: HO.HOS 12:57
PROVIDERS: PCP Internal Medicine; Visit Provider Orthopaedic Surgery
DX: M17.12 Unilateral primary osteoarthritis, left knee (principal)
CPT/HCPCS: 20610; 99213

== ENCOUNTER → 2025-08-13 12:56 | Outpatient (BNVA) | payer MEDICARE, MEDICAID, SELFPAY | PROVIDERS: PCP Internal Medicine; Visit Provider Orthopaedic Surgery | DX: M17.12 Unilateral primary osteoarthritis, left knee (principal) | CPT/HCPCS: 20610; 99212; J0665; J1100; J2003 ==

== ENCOUNTER 2025-08-15 14:55 | Outpatient (AMB) | payer MEDICARE, MEDICAID, SELFPAY ==
--- NOTE | 2025-08-15 14:56 | A.OFFVIS_ITS ---
Vital Signs 08/15/25 15:00 Height 4 ft 9 in Weight 154 lb 4 oz BMI 33.4 BP 106/60 Blood Pressure Location Rt brachial Position Sitting Pulse 66 Pulse Source Pulse Oximeter Pulse Oximetry (%) 95 Oxygen Delivery Method Room Air Intake Visit Reasons: f/u w MD Intake Note: Follow up care Casting Operator Helper Required: Yes Casting Operator Helper Services: Casting Operator Helper Offered & Declined Casting Operator Helper Name: Brigid Dela Cruz to interpret Accompanied by: Daughter Allergies No Known Allergies Allergy (Verified 08/15/25 15:02) Medication List - Last Reconciled 08/15/25 by Cora Maradiaga MD acetaminophen 975 mg (3 x 325 mg) PO Q6H PRN amlodipine 5 mg PO DAILY atorvastatin 20 mg PO DAILY benazepril 10 mg PO DAILY Held on 04/30/25. Instructions: Resume on 05/09/25. hold lisinopril until repeat bmp ,start if bp allows. cholecalciferol (vitamin D3) (Vitamin D3) 25 mcg PO DAILY denosumab (Prolia) 60 mg subcut [id number] fluticasone propionate 50 mcg/actuation 1 spray intranasal DAILY gabapentin 300 mg PO BEDTIME gabapentin 100 mg PO BID PRN methimazole 2.5 mg (1/2 x 5 mg) PO DAILY ropinirole 1 mg (1/2 x 2 mg) PO BID HPI Comments Details: 84 y/o Mohawk speaking F comes for follow up of LASHON and RLS. She is accompanied by her daughter who helps with history. Her restless legs is poorly controlled especially when she was flying from [place]. LASHON compliance report 04/2025-07/2025 >4 hours 83 days and 91% Avg use total 7 hours 57min APAP [id number] AHI 0.9/hr History from 04/08 visit- She recently returned from [place]. Her legs start to bother her in the afternoon and the soles get very hot as if on fire. She did well with ropinirole XR 2mg q4 pm and and again at 8pm, she also takes gabapentin 100mg qhs at 9pm. She is compliant on CPAP, has started using her machine daily and for more than 8 hours a night. We reviewed labs today and will evaluate her Ferritin and Iron panel, we also discussed daily need for exercise wearing good shoes with memory foam insoles and using a hiking stick in both hands when she walks. Her memory is poor at baseline, she needs redirection with many task, daughter visits her daily at the correction facility. RLS of the leg cramps, numbness, tingling and paces the floors. Has difficulty sleeping. Denies history of DVTs or Seizure. [facility] Medical History Obstructive sleep apnea hypopnea, mild Restless legs syndrome (RLS) Hypersomnia Snoring Acute hyponatremia Osteoporosis Hypertensive emergency On beta april at home Vitamin D deficiency Goiter Hyperparathyroidism Subclinical hyperthyroidism Effusion, left knee Renal impairment High cholesterol Hypertension Left knee pain Surgical History H/O colonoscopy History of esophagogastroduodenoscopy (EGD) Hx of cataract extraction Hx of hysterectomy Family History Father No problems noted. Mother No problems noted. Social History Household Members: None Household Members Other:: lives with her daughter Housing: House Do you presently have visiting nurse or other home services: No Alcohol intake: never Patient Tobacco Use Status: Never used Tobacco e-Cigarette/Vaping Use: Never Used Second Hand Smoke Exposure: No service: No Current occupational status: unemployed Physical Exam Vital Signs: Last Vital Signs Pulse 66 08/15/25 15:00 BP 106/60 08/15/25 15:00 Pulse Ox 95 08/15/25 15:00 Oxygen Delivery Method Room Air 08/15/25 15:00 BMI result Body Mass Index 33.4 Const General: cooperative and no acute distress Orientation/consciousness: patient oriented x3 HEENT Face and sinus: Yes face symmetric Teeth and gingiva: other Eyes Pupils: Equal, round and reactive pupils present Neck Neck: Yes full ROM Resp Effort & Inspection: normal respiratory effort and able to speak in complete sentences Neuro General: patient oriented x3 and moves all extremities Cranial nerves: Yes Facial sensation intact/muscles of mastication intact, Yes Equal, round and reactive pupils present, Yes Normal accommodation reflex present, Yes Normal facial strength present, Yes Midline tongue present, Yes Ability to bilaterally rotate head present and Yes Ability to bilaterally elevate shoulders present Gait exam (Neuro): Antalgic gait present Motor exam (neuro): 5/5 motor strength present throughout and Normal motor muscle tone present throughout Psych Appearance: grossly normal Thought process: Normal thought process present Thought content: Normal thought content present Assessment & Plan Assessment & Plan (1) Restless legs syndrome (RLS): Code(s): G25.81 - Restless legs syndrome Category: Medical (2) Obstructive sleep apnea hypopnea, mild: Code(s): G47.33 - Obstructive sleep apnea (adult) (pediatric) Category: Medical Plan Continue CPAP as patient continues to have refreshed sleep. RLS continue Ropinirole 1 mg q noon and qhs gabapentin to 300mg qhs. start gabapentin 100 mg bid as needed magnesium 100-200mg daily at bedtime. 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 Medications: New gabapentin 100 mg PO BID PRN 60 caps 6RF restless legs Coding Level of Care Code Est Pt Level 4 (52514) Complex EM visit Add On G2211 Diagnoses Restless legs syndrome (RLS) G25.81 Obstructive sleep apnea hypopnea, mild G47.33
[2025-08-15 15:00] VITALS: BP 106/60; PULSE 66; O2SAT 95; BMI 33.4
--- OUTSIDE RECORDS SUMMARY | 2025-08-15 16:02 | XMS_ITS | Encounter Summary ---
Author Organization [facility] Address [address] [facility] 7t [place] [address] Care Team Providers Care Computer Specialist Name Role Phone Evi Thomson MD Primary Care Provider + Valerio Sweet PharmD Unavailable [phone] Encounter Details Date Type Department Care Team (Late Contact Info) Description 10/16/2022 Orders Only [facility] MEDICINE [address] [place] [address] [phone] Evi Thomson MD 230 [place], [place] [phone] Social History Tobacco Use Types Packs/Day Years [...] Department Care Team (Late Contact Info) Description 08/17/2025 10:30 AM EDT Office Visit [facility] [address] [place] [address] [phone] Evi Thomson MD 230 [place] [address] documented as of this encounter Visit Diagnoses Not on filedocumented in this encounter Care Teams Computer Specialist Relationship Specialty Start Date End Date Evi Thomson MD [address] [place] [phone] PCP - General Family Medicine 03/13/19 Valerio Sweet, NickiD [address] [place] [address] Pharmacist Internal Medicine 11/02/22 [facility] 05/17/25 documented as of this encounter
--- OUTSIDE RECORDS SUMMARY | 2025-08-15 16:02 | XMS_ITS | Encounter Summary ---
Author Organization [employer] [facility] Address [address] [facility] [address] 7t [place] [address] Care Team Providers Care Retort Loader Name Role Phone Evi Thomson MD Primary Care Provider + Valerio Sweet PharmD Unavailable [phone] Reason for Visit * Reason Comments Med Refill Encounter Details Date Type Department Care Team (Late st Contact Info) Description 05/14/2024 Refill [facility] MEDICINE 230 [place], [place] [phone] Amrita Alfred FNP 230 [place], [place] [phone] Social History Tobacco Use Types Packs/Day Years [...] Description 08/17/2025 10:30 AM EDT Office Visit [facility] MEDICINE 230 [place] [address] Evi Thomson MD 230 [place] [address] documented as of this encounter Goals Goal Patient Goal Type Associated Problems Recent Progress Patient-Stated? Author Blood Pressure < 140/90 Blood Pressure 126/70( 025 11:42 AM EDT) No Valerio Sweet PharmD documented as of this encounter Visit Diagnoses Not on filedocumented in this encounter Care Teams Retort Loader Relationship Specialty Start Date End Date Evi Thomson MD [address] [place] [phone] PCP - General Family Medicine 03/13/19 Valerio Sweet PharmD [address] [place] [address] Pharmacist Internal Medicine 11/02/22 [facility] 05/17/25 documented as of this encounter
--- OUTSIDE RECORDS SUMMARY | 2025-08-15 16:02 | XMS_ITS | Encounter Summary ---
Author Organization [employer] [facility] Address [address] [facility] [address] 7t [place] [address] Care Team Providers Care Counseling Center Director Name Role Phone Evi Thomson MD Primary Care Provider + Valerio Sweet PharmD Unavailable [phone] Reason for Visit * Reason Comments Med Refill Encounter Details Date Type Department Care Team (Late st Contact Info) Description 08/14/2025 Refill [facility] MEDICINE 230 [place], [place] [phone] Margarita Reyes MD 230 [place], [place] [phone] Social History Tobacco Use Types Packs/Day Years Used Date Smoking Tobacco: Former Cigarettes Passive Smoke Exposure: Past Smokeless Tobacco: Never Alcohol Use Standard Drinks/Week Comments Not Currently 0 (1 standard drink = 0.6 oz pur e alcohol) Depression Answer Date Recorded Patient Health Questionnaire-9 Score 5 07/04/2025 Patient Health Questionnaire-9 Score 5 07/04/2025 Last PHQ-9: Questionnaire Data Not on file 0 07/04/2025 Housing Stability Answer Date Recorded What is your housing situation today? I have isidra high 06/13/[address] you li ve. Do you have problems with any of the following? None of the above 06/13/2025 Food Insecurity Answer Date Recorded Within the past 12 months, y ou worried that your food would run out before you got money to buy more: Never True 06/13/2025 Within the past 12 months,th e food you bought just didn't last and you didn't have enough money to get more: Never True Transportation Answer Date Recorded In the past 12 months, has l ack of transportation kept you from medical appts, meetings, work or from getting things needed for daily living? No 06/13/2025 Utilities Answer Date Recorded In the past 12 months, has t he electric, gas, oil or water company threatened to shut off services in your home? No 06/13/2025 Depression Answer Date Recorded Patient Health Questionnaire-2 Score 1 07/04/2025 Internet Access Answer Date Recorded Internet Access Q1 Yes 05/27/2025 Internet Access Q2 Not on file 05/27/2025 Comments No Sex and Gender Information Value [...] Description 08/17/2025 10:30 AM EDT Office Visit [facility] MEDICINE [address] [place] [address] Evi Thomson MD [address] [place] [address] documented as of this encounter Goals Goal Patient Goal Type Associated Problems Recent Progress Patient-Stated? Author Blood Pressure < 140/90 Blood Pressure 126/70( 025 11:42 AM EDT) No Valerio Sweet, Karl documented as of this encounter Visit Diagnoses Not on filedocumented in this encounter Additional Health Concerns Assessment Noted Time PHQ-9 Depression Total Score: 5 07/04/20 25 8:47 AM EDT documented as of this encounter Care Teams Counseling Center Director Relationship Specialty Start Date End Date Evi Thomson MD [address] [place] [phone] PCP - General Family Medicine 03/13/19 Valerio Sweet PharmD [address] [place] [address] Pharmacist Internal Medicine 11/02/22 [facility] 05/17/25 documented as of this encounter
--- OUTSIDE RECORDS SUMMARY | 2025-08-15 16:02 | XMS_ITS | Encounter Summary ---
Author Organization [employer] [facility] Address [address] [facility] [address] 7t [place] [address] Care Team Providers Care Long Term Care Social Worker Name Role Phone Evi Thomson MD Primary Care Provider + Valerio Sweet PharmD Unavailable [phone] Reason for Visit * Reason Comments Med Change Request Encounter Details Date Type Department Care Team (Late st Contact Info) Description 06/22/[address] [facility] MEDICINE 230 [place], [place] [phone] Evi Thomson MD 230 [place], [place] [phone] Social History Tobacco Use Types Packs/Day Years Used Date Smoking Tobacco: Former Cigarettes Passive Smoke Exposure: Past Smokeless Tobacco: Never Alcohol Use Standard Drinks/Week Comments Not Currently 0 (1 standard drink = 0.6 oz pur e alcohol) Depression Answer Date Recorded Patient Health Questionnaire-9 Score 4 06/13/2025 Patient Health Questionnaire-9 Score 4 06/13/2025 Last PHQ-9: Questionnaire Data Not on file 0 06/13/2025 Housing Stability Answer Date Recorded What is [...] Answer Date Recorded Patient Health Questionnaire-2 Score 3 06/13/2025 Internet Access Answer Date Recorded Internet Access [...] Description 08/17/2025 10:30 AM EDT Office Visit [facility] MEDICINE [address] [place] [phone] Evi Thomson MD [address] [place] [address] documented as of this encounter Goals Goal Patient Goal Type Associated Problems Recent Progress Patient-Stated? Author Blood Pressure < 140/90 Blood Pressure 126/70( 025 11:42 AM EDT) No Valerio Sweet, PharmD documented as of this encounter Visit Diagnoses Not on filedocumented in this encounter Additional Health Concerns Assessment Noted Time PHQ-9 Depression Total Score: 4 06/13/20 25 10:23 AM EDT documented as of this encounter Care Teams Long Term Care Social Worker Relationship Specialty Start Date End Date Evi Thomson MD [address] [place] [address] PCP - General Family Medicine 03/13/19 Valerio Sweet PharmD [address] [place] [address] [place] [address] Pharmacist Internal Medicine 11/02/22 [facility] 05/17/25 documented as of this encounter
--- OUTSIDE RECORDS SUMMARY | 2025-08-15 16:02 | XMS_ITS | Encounter Summary ---
Author Organization [email or web address] [facility] Address [address] 7[address] [place] [address] Care Team Providers Care Towel Hemmer Name Role Phone Evi Thomson MD Primary Care Provider + Valerio Sweet PharmD Unavailable [phone] Encounter Details Date Type Department Care Team (Late st Contact Info) Description 06/12/2025 Results Follow-Up [facility] MEDICINE 230 [place], [place] [phone] Evi Thomson MD 230 [place], [place] [phone] Basic Metabolic Panel, Magnesium Social History Tobacco Use Types Packs/Day Years [...] AM EDT documented as of this encounter Functional Status * Over the past 2 weeks, how often have you been bothered by any of the following problems? Question Answer Date of Assessment Author Patient Health Questionnaire -2 Score 1 07/04/2025 8:47 AM EDT Urszula Silverio * Little interest or pleasure in doing things Answer Date of Assessment Author Several days 07/04/2025 8:47 AM EDT Ela Mtz * Feeling down, depressed, or hopeless Answer Date of Assessment Author Not at all 07/04/2025 8:47 AM EDT Ela Mtz * Trouble falling or staying asleep, or sleeping too much Answer Date of Assessment Author Not at all 07/04/2025 8:47 AM EDT Ela Mtz * Feeling tired or having little energy Answer Date of Assessment Author Several days 07/04/2025 8:47 AM EDT Ela Mtz * Poor appetite or overeating Answer Date of Assessment Author Not at all 07/04/2025 8:47 AM IGORT Ela Mtz * Feeling bad about yourself - or that you are a failure or have let yourself or your family down Answer Date of Assessment Author Not at all 07/04/2025 8:47 AM EDT Ela Mtz * Trouble concentrating on things, such as reading the newspaper or watching television Answer Date of Assessment Author More than half the days 07/04/2025 8:47 AM Ela Brown * Moving or speaking so slowly that other people could have noticed? Or the opposite - being so fidgety or restless that you have been moving around a lot more than usual. Answer Date of Assessment Author Several days 07/04/2025 8:47 AM EDT Ela Mtz * Thoughts that you would be better off or hurting yourself in some way Answer Date of Assessment Author Not at all 07/04/2025 8:47 AM Ela Elliott * Patient Health Questionnaire-9 Score Answer Date of Assessment Author 5 07/04/2025 8:47 AM Ela Elliott * How difficult have these problems made it for you to do your work, take care of things at home, or get along with other people? Answer Date of Assessment Author Somewhat difficult 07/04/2025 8:47 AM Ela Courtney * Over the last 2 weeks, how often have you been bothered by any of the following problems? Question Answer Date of Assessment Author Feeling nervous, anxious, or on edge 1 07/04/2025 8:47 AM EDT Urszula Silverio ctoria Not being able to stop or control worrying 1 07/04/2025 8:47 AM EDUrszula Morales ctcherie Worrying too much about different things 1 07/04/2025 8:47 AM EDUrszula Morales ctoria Trouble relaxing 0 07/04/2025 8:47 AM IGORT Ela Greer Being so restless that it is hard to sit still 1 07/04/2025 8:47 AM EDUrszula Morales ctoria Becoming easily annoyed or irritable 0 07/04/2025 8:47 AM EDT Urszula Silverio ctoria Feeling afraid as if somethi ng awful might happen 0 07/04/2025 8:47 AM EDT Urszula Silverio ctoria CARLOS-7 Total Score 4 07/04/2025 8:47 AM EDT Ela Silverio documented as of this encounter Miscellaneous Notes * Result Encounter Note - Evi Thomson MD - 06/12/2025 3:02 PM EDT BMP and magnesium done 06/03/2025 show mild improvement of GFR and creatinine, electrolytes are within normal limits. I spoke with patient and told her that I would not make any medication changes at this time, we will continue holding benazepril hoping for a much improvement of creatinine. She agreed with POC and I will follow-up next month documented in this encounter Plan of Treatment Upcoming Encounters Date Type Department Care Team (Late st Contact Info) Description 08/17/2025 10:30 AM EDT Office Visit [facility] MEDICINE 230 [place] [address] Evi Thomson MD [address] [place] [address] documented as of this encounter Goals Goal Patient Goal Type Associated Problems Recent Progress Patient-Stated? Author Blood Pressure < 140/90 Blood Pressure 126/70( 025 11:42 AM EDT) No Valerio Sweet PharmD documented as of this encounter Visit Diagnoses Not on filedocumented in this encounter Additional Health Concerns Assessment Noted Time PHQ-9 Depression Total Score: 16 025 10:21 AM EDT documented as of this encounter Care Teams Towel Hemmer Relationship Specialty Start Date End Date Evi Thomson MD [address] [place] [address] [phone] PCP - General Family Medicine 03/13/19 Valerio Sweet PharmD [address] [place] [address] [phone] Pharmacist Internal Medicine 12/19/22 [place] JOSUE 05/17/25 documented as of this encounter
--- OUTSIDE RECORDS SUMMARY | 2025-08-15 16:02 | XMS_ITS | Encounter Summary ---
Author Organization [employer] Address [address] [facility] [address] 7[address] [place] [address] Care Team Providers Care Corporate Recruiter Name Role Phone Evi Thomson MD Primary Care Provider + Valerio Sweet PharmD Unavailable [phone] Encounter Details Date Type Department Care Team (Late st Contact Info) Description 08/10/2024 Telephone [facility] MEDICINE 230 [place], [place] [phone] Evi Thomson MD 230 [place], [place] [phone] Social History Tobacco Use Types Packs/Day Years [...] Description 08/17/2025 10:30 AM EDT Office Visit [facility] MEDICINE [address] [place] [address] Evi Thomson MD [address] [place] [address] documented as of this encounter Goals Goal Patient Goal Type Associated Problems Recent Progress Patient-Stated? Author Blood Pressure < 140/90 Blood Pressure 126/70( 025 11:42 AM EDT) No Valerio Sweet PharmD documented as of this encounter Visit Diagnoses Not on filedocumented in this encounter Care Teams Corporate Recruiter Relationship Specialty Start Date End Date Evi Thomson MD [address] [place] [address] PCP - General Family Medicine 03/13/19 Valerio Sweet PharmD [address] [place] [address] Pharmacist Internal Medicine 11[facility]02[facility]22 [facility] documented as of this encounter
--- OUTSIDE RECORDS SUMMARY | 2025-08-15 16:02 | XMS_ITS | Encounter Summary ---
Author Organization [employer] [facility] Address [address] [facility] [address] [facility] [address] 7[address] [place] [address] Care Team Providers Care Special Needs Teacher Name Role Phone Evi Thomson MD Primary Care Provider + Valerio Sweet PharmD Unavailable [phone] Reason for Visit * Reason Comments Med Refill Encounter Details Date Type Department Care Team (Late st Contact Info) Description 07/05/2024 Refill [facility] MEDICINE 230 [place], [place] [phone] Evi Thomson MD 230 [place], [place] [phone] Allergic rhinitis due to other allergic trigger, [...] your housing situation today? I have isidra anila 05/24/[address] you li [...] 10:30 AM EDT Office Visit [facility] MEDICINE [address] [place] [address] Evi Thomson MD [address] [place] [address] documented as of this encounter Goals Goal Patient Goal Type Associated Problems Recent Progress Patient-Stated? Author Blood Pressure < 140/90 Blood Pressure 126/70( 025 11:42 AM EDT) No Valerio Sweet, Karl documented as of this encounter Visit Diagnoses Diagnosis Allergic rhinitis due to other allergic trigger, unspecified seasonality documented in this encounter Care Teams Special Needs Teacher Relationship Specialty Start Date End Date Evi Thomson MD [address] [place] [phone] PCP - General Family Medicine 03/13/19 Valerio Sweet, Karl [address] [place] [address]46 Pharmacist Internal Medicine 11/02/22 [facility] 05[facility]25 documented as of this encounter
--- OUTSIDE RECORDS SUMMARY | 2025-08-15 16:02 | XMS_ITS | Encounter Summary ---
Author Organization [employer] Address [address] [facility] 7t [place] [address] Care Team Providers Care Ruling Machine Feeder Name Role Phone Evi Thomson MD Primary Care Provider + Valerio Sweet PharmD Unavailable [phone] Reason for Visit * Reason Onset Date Comments HDF/Triage 01/07/2023 Encounter Details Date Type Department Care Team (Late st Contact Info) Description 01/07/2023 Telephone [facility] MEDICINE [address] [place], [place] [phone] Evi Thomson MD [address] [place], [place] [phone] HDF/Triage Social History Tobacco Use Types Packs/Day [...] encounter Miscellaneous Notes * Telephone Encounter - Ahiritza Waters Hou - 01/07/2023 3:31 PM EST Patient calling for HDF follow up appointment. Patient hospitalized at [facility] . Patient was admitted on 01/06/2023 and discharged on same day. Patient was advised will forward to triage nurse for follow up and appointment scheduling. Please contact pt son in law on [phone] documented in this encounter Plan of Treatment Upcoming Encounters Date Type Department Care Team (Late st Contact Info) Description 08/17/2025 10:30 AM EDT Office Visit [facility] MEDICINE [address] [place] [address] [phone] Evi Thomson MD [address] [place] [address] documented as of this encounter Visit Diagnoses Not on filedocumented in this encounter Care Teams Ruling Machine Feeder Relationship Specialty Start Date End Date Evi Thomson MD [address] [place] [phone] PCP - General Family Medicine 03/13/19 Valerio Sweet, NickiD [address] [place] [address]88 Pharmacist Internal Medicine 11/02/22 [facility] documented as of this encounter
--- OUTSIDE RECORDS SUMMARY | 2025-08-15 16:02 | XMS_ITS | Clinical Summary ---
Author Organization [facility] Address [address] [place] [address] Care Team Providers Care Reexaminer Name Role Phone Evi Thomson MD Primary Care Provider [phone] Medications No known medications Active Problems No [...] 1-dose 75+ series) 2013 COVID-19 Vaccine ( - 2024-2 6 season) 2025 10/17/2021, 03/20/2021, 02/20/2021 Influenza Vaccine (#1) 2025 , 10/01/2020, 08/24/2019 Hepatitis B Vaccines Aged Out No long er eligible based on patient's age to complete this topic RSV Ped < 20 months Aged Out No longe r eligible based on patient's age to complete this topic Care Teams Reexaminer Relationship Specialty Start Date End Date Evi Thomson MD [address] [place] [phone] PCP - General Family Medicine 09/03/23
--- OUTSIDE RECORDS SUMMARY | 2025-08-15 16:02 | XMS_ITS | Encounter Summary ---
Author Organization [employer] Address [address] [facility] [address] 7t [place] [address] Care Team Providers Care Manager Business Operations Name Role Phone Evi Thomson MD Primary Care Provider + Valerio Sweet PharmD Unavailable [phone] Reason for Visit * Reason Onset Date Comments Med Refill 06/14/2025 Encounter Details Date Type Department Care Team (Late st Contact Info) Description 06/14/2025 Telephone [facility] MEDICINE [address] [place], [place] [phone] Evi Thomson MD [address] [place], [place] [phone] Med Refill Social History Tobacco Use Types Packs/Day Years [...] encounter Miscellaneous Notes * Telephone Encounter - Norma Cast LPN - 06/14/2025 10:23 AM EDT Lidocaine was sent to [facility] #[id number] on 06/12/25 #30 with 1 refill and Ropinirole isn't prescribed by PCP. * Telephone Encounter - Shyam Silverio - 06/14/2025 10:18 AM EDT TC from pt requesting medication refill. Medications needing refill : rOPINIRole (Requip) 1 MG tablet lidocaine (Lidoderm) 5 % patch To be sent to: [facility]/pharmacy #[id number] - [address] documented in this encounter Plan of Treatment Upcoming Encounters Date Type Department Care Team (Late st Contact Info) Description 08/17/2025 10:30 AM EDT Office Visit [facility] MEDICINE [address] [place] [address] Evi Thomson MD [address] [place] [phone] documented as of this encounter Goals Goal Patient Goal Type Associated Problems Recent Progress Patient-Stated? Author Blood Pressure < 140/90 Blood Pressure 126/70( 025 11:42 AM EDT) No Valerio Sweet, NickiD documented as of this encounter Visit Diagnoses Not on filedocumented in this encounter Additional Health Concerns Assessment Noted Time PHQ-9 Depression Total Score: 4 06/13/20 25 10:23 AM EDT documented as of this encounter Care Teams Manager Business Operations Relationship Specialty Start Date End Date Evi Thomson MD [address] [place] [address] PCP - General Family Medicine 03/13/19 Valerio Sweet, PharmD [address] [place] [address] Pharmacist Internal Medicine 11/02/22 [facility] 05/17/25 documented as of this encounter
--- OUTSIDE RECORDS SUMMARY | 2025-08-15 16:02 | XMS_ITS | Encounter Summary ---
Author Organization [employer] Address [address] [facility] [address] 7t [place] [address] Care Team Providers Care Shuttle Repairer Name Role Phone Evi Thomson MD Primary Care Provider + Valerio Sweet PharmD Unavailable [phone] Encounter Details Date Type Department Care Team (Late st Contact Info) Description 11/24/2022 Orders Only [facility] [address] [place], [place] [phone] Evi Thomson MD [address] [place], [place] [phone] Hyperkalemia (Primary Dx) Social History Tobacco Use [...] hyperkalemia. Please call renal and ask that unix engineer calls me back to discuss hyperkalemia and possibility of lokelma or changing meds documented in this encounter Plan of Treatment Upcoming Encounters Date Type Department Care Team (Late st Contact Info) Description 08/17/2025 10:30 AM EDT Office Visit [facility] [address] [place] [address] Evi Thomson MD [address] [place], [place] [phone] documented as of this encounter Procedures Procedure Name Priority Date/Time Associated Diagnosis Comments POTASSIUM Routine 11/27/2022 8:47 AM EST Hyperkalemia documented in this encounter Results * Potassium (11/27/2022 8:47 AM EST) Potassium 5.1 3.5 - 5.3 mmol/L [employer] [place] [facility] Blood Venous blood specimen / Unknown 11/27/2022 8:47 AM EST 11/27/2022 8:48 AM EST Narrative [facility] - 11/27/2022 8:46 PM EST FASTING:YES FASTING: YES us Evi Thomson MD LAB BLOOD ORDERABLES Fin al Result [facility] [address] [facility] [place] [facility], [place] [address] [employer] [place] [facility] [address] [facility], ([address]) [place] [address] documented in this encounter Visit Diagnoses Diagnosis Hyperkalemia- Primary Hyperpotassemia documented in this encounter Care Teams Shuttle Repairer Relationship Specialty Start Date End Date Evi Thomson MD [address] [place] [address] PCP - General Family Medicine 03/13/19 Valerio Sweet, Karl [address] [place] [address] Pharmacist Internal Medicine 11/02/22 [facility] 05/17/25 documented as of this encounter
--- OUTSIDE RECORDS SUMMARY | 2025-08-15 16:02 | XMS_ITS | Encounter Summary ---
Author Organization [employer] Address [address] [facility] [address] 7t [place] [address] Care Team Providers Care Fur Mixer Name Role Phone Evi Thomson MD Primary Care Provider + Valerio Sweet PharmD Unavailable [phone] Reason for Visit * Reason Onset Date Comments pre op 12/05/2024 Encounter Details Date Type Department Care Team (Late st Contact Info) Description 12/05/2024 Telephone [facility] [address] [place], [place] [phone] Evi Thomson MD [address] [place], [place] [phone] pre op Social History Tobacco Use Types [...] to pre op appointment on 12/22/24 with [facility]. Appointment reminder letter mailed * Telephone Encounter - Himanshu Nolen - 12/05/2024 2:43 PM EST Date of Surgery: 12/29 Surgical procedure being done: Bilateral Upper Eyelid Surgery and Muscle Surgery Type of anesthesia: MAC Lab needed: Yes EKG: Yes Surgeon's name: Facility name: [facility]. Surgeon's office number: [phone] Surgeon's office fax number: [phone] Contact name (person you spoke with): Ness Last office note from surgeon requested: No Send Message to Dinora Rodriguez and Kevin Woods documented in this encounter Plan of Treatment Upcoming Encounters Date Type Department Care Team ([facility] Contact Info) Description 08/17/2025 10:30 AM EDT [facility] Visit [facility] [address] [place] [address] [place] [address] Evi Thomson MD [address] [place] [address] documented as of this encounter Goals Goal Patient Goal Type Associated Problems Recent Progress Patient-Stated? Author Blood Pressure < 140/90 Blood Pressure 126/70( 025 11:42 AM EDT) No Valerio Sweet, PharmD documented as of this encounter Visit Diagnoses Not on filedocumented in this encounter Care Teams Fur Mixer Relationship Specialty Start Date End Date Evi Thomson MD [address] [place] [phone] PCP - General Family Medicine 03/13/19 Valerio Sweet, PharmD [address] [place] [phone] Pharmacist Internal Medicine 11/02/22 [facility] documented as of this encounter
--- OUTSIDE RECORDS SUMMARY | 2025-08-15 16:02 | XMS_ITS | Encounter Summary ---
Author Organization [employer] Address 75 [facility] 7t [place] [address] Care Team Providers Care Interventional Nurse Name Role Phone Evi Thomson MD Primary Care Provider + Valerio Sweet PharmD Unavailable [phone] Encounter Details Date Type Department Care Team (Late st Contact Info) Description 10/06/2022 Abstract [facility] MEDICINE [address] [place] [address] [phone] Provider, MD Fuentes Social History Tobacco Use Types Packs/Day Years [...] Description 08/17/2025 10:30 AM EDT Office Visit [facility] MEDICINE [address] [place] [address] [phone] Evi Thomson MD [address] [place] [address] [phone] documented as of this encounter Visit Diagnoses Not on filedocumented in this encounter Care Teams Interventional Nurse Relationship Specialty Start Date End Date Evi Thomson MD [address] [place] [address] PCP - General Family Medicine 03/13/19 Valerio Sweet, NickiD [address] [place] [address] Pharmacist Internal Medicine 11/02/22 [facility] SPENCERA 05/17/25 documented as of this encounter
--- OUTSIDE RECORDS SUMMARY | 2025-08-15 16:02 | XMS_ITS | Encounter Summary ---
Author Organization [facility] Address [address] [facility] 200 [place] [address] Phone Care Team Providers Care Snuff Maker Name Role Phone Evi Thomson MD Primary Care Provider [phone] Encounter Details Date Type Department Care Team ([facility] Contact Info) Description 02/11/2021 Orders Only [facility] [address] [facility] [address] [place] [address] ProviderFuentes MD Social History Tobacco [...] Upcoming Encounters Date Type Department Care Team ([facility] Contact Info) Description 01/17/2026 1:15 PM EST Office Visit [facility] [address] [place] [phone] Rikki Pratt MD [address] [facility] 204 [place] [address] documented as of this encounter Procedures Procedure Name Priority Date/Time Associated Diagnosis Comments EXT RESULT ENTRY Routine 02/11/2021 documented in this encounter Results * EXT RESULT ENTRY (02/11/2021) us Historical Provider LAB BLOOD ORDERABLES Clara l Result documented in this encounter Visit Diagnoses Not on filedocumented in this encounter Care Teams Snuff Maker Relationship Specialty Start Date End Date Evi Thomson MD [address] [place] [phone] PCP - General 11/25/20 documented as of this encounter
--- OUTSIDE RECORDS SUMMARY | 2025-08-15 16:02 | XMS_ITS | Encounter Summary ---
Author Organization [employer] Address [address] [facility] [address] 7t [place] [address] Care Team Providers Care Furrier Apprentice Name Role Phone Evi Thomson MD Primary Care Provider + Valerio Sweet PharmD Unavailable [phone] Reason for Visit * Reason Comments Med Refill Encounter Details Date Type Department Care Team (Late st Contact Info) Description 08/12/2024 Refill [facility] MEDICINE 230 [place], [place] [phone] Evi Thomson MD [address] [place], [place] [phone] Allergic rhinitis due to other allergic trigger, [...] Description 08/17/2025 10:30 AM EDT Office Visit [facility] MEDICINE [address] [place] [address] Evi Thomson MD [address] [place] [address] documented as of this encounter Goals Goal Patient Goal Type Associated Problems Recent Progress Patient-Stated? Author Blood Pressure < 140/90 Blood Pressure 126/70( 025 11:42 AM EDT) No Valerio Sweet, Karl documented as of this encounter Visit Diagnoses Diagnosis Allergic rhinitis due to other allergic trigger, unspecified seasonality documented in this encounter Care Teams Furrier Apprentice Relationship Specialty Start Date End Date Evi Thomson MD [address] [place] [address] PCP - General Family Medicine 03/13/19 Valerio Sweet, NickiD [address] [place] [address] Pharmacist Internal Medicine 11/02/22 Olimpia JOSUE 05/17/25 documented as of this encounter
--- OUTSIDE RECORDS SUMMARY | 2025-08-15 16:02 | XMS_ITS | Encounter Summary ---
Author Organization [employer] Address [address] [facility] [address] 7t [place] [address] Care Team Providers Care Nutrient Management Specialist Name Role Phone Evi Thomson MD Primary Care Provider + Valerio Sweet PharmD Unavailable Reason for Visit * Reason Comments Med Refill Encounter Details Date Type Department Care Team (Late st Contact Info) Description 04/12/2024 Refill [facility]INE 230 [place], [place] [phone] Evi Thomson MD 230 [place], [place] [phone] Postherpetic neuralgia Social History Tobacco Use Types [...] housing situation today? I have isidra anila 09/01/[address] you li [...] Description 08/17/2025 10:30 AM EDT Office Visit [facility] MED[facility]INE [address] [place] [address] Evi Thomson MD [address] [place] [address] documented as of this encounter Goals Goal Patient Goal Type Associated Problems Recent Progress Patient-Stated? 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
--- OUTSIDE RECORDS SUMMARY | 2025-08-15 16:02 | XMS_ITS | Clinical Summary ---
Author Organization [facility] Address [address] [place] [phone] Phone Care Team Providers Care Parole Hearing Officer Name Role Phone Evi Thomson MD Primary Care Provider [phone] Allergies No known active allergies Medications atorvastatin [...] Visit [facility] [address] [place] [phone] Rikki Pratt MD Stage 3b chronic kidney [...] Visit [facility] [address] [place] [address] Rikki Pratt MD [address] [facility] [address] [place] [address] Health Maintenance Due Date Last Done Comments Influenza Vaccine (#1) 2025 , 08/24/2019 Pneumococcal Vaccine: 50+ Years Completed 04/04/2024 Pneumococcal Vaccine: Peds (0 to 5 Years) and At-Risk Patients (6 to 49 Years) Discontinued 04/04/2024 Hepatitis B Vaccine Aged Out No longe r eligible based on patient's age to complete this topic [place] Care Teams Parole Hearing Officer Relationship Specialty Start Date End Date Evi Thomson MD [address] [place] [phone] PCP - General 11/25/20
--- OUTSIDE RECORDS SUMMARY | 2025-08-15 16:02 | XMS_ITS | Clinical Summary ---
Author Organization [employer] Address [address] [place] [address] Care Team Providers Care L D Rn Name Role Phone Evi Thomson MD Primary Care Provider + Valerio Sweet PharmD Unavailable [phone] Allergies No known active allergies Medications * This document contains information received from the source organization and may not represent a complete record from that organization. methIMAzole (Tapazole) 5 MG tablet Take 0.5 tablets by mouth 1 (one) time each day. Active Elastic Bandages & Supports (B & B Knee Brace/Supports) [facility] 2019 Active Blood Pressure Monitoring (Omron 3 Series BP Monitor) device USE DAILY DIRECTED 2021 Active Prolia 60 MG/ML solution prefilled syringe Inject 60mg subcutaneously every 6 months as directed 2022 Active glucose blood test stripIndications:Predi abetes Use as instructed 100 each 12 2022 Active D3-1000 25 MCG (1000 UT) capsule TOME 1 C PSULA (25 MCG) ORALLY DAILY FOR 30 DAYS 2022 Active acetaminophen (Tylenol 8 Hour) 650 MG ER tabletIndications:Lumb osacral radiculopathy TAKE 1-2 TABLETS BY MOUTH EVERY 8-12 HOURS NEEDED. SWALLOW WHOLE WITH WATER (MAX 3600MG/D). DO NOT BREAK, CRUSH, DISSOLVE AND/OR CHEW. 120 tablet 6 2023 Active amLODIPine (Norvasc) 5 MG tabletIndications:Rocky gn hypertension TOME 1 TABLETA POR VIA ORAL TODOS LOS JOSEPH 90 tablet 1 2024 Active atorvastatin (Lipitor) 20 MG tabletIndications:Pure hypercholesterolemia TAKE 1 TABLET BY MOUTH EVERY MORNING 90 tablet 2 2024 Active rOPINIRole (Requip) 1 MG tablet Take 1 tablet by mouth 2 times daily. 2024 Active gabapentin (Neurontin) 100 MG capsule Take 1 capsule (100 mg) by mouth at bedtime. 30 capsule 11 06/12 Active lidocaine (Lidoderm) 5 % patchIndications:Lumbo sacral radiculopathy Apply 1 patch topically Once per day. Remove & discard patch within 12 hours or as directed by MD. 30 patch 1 2024 Active mirtazapine (Remeron) 15 MG tablet Take 0.5 tablets (7.5 mg) by mouth if needed in the morning and at bedtime (Anxiety, hold for sedation). 15 tablet 2 2024 Active fluticasone (Flonase) 50 MCG/ACT nasal sprayIndications:Aller gic rhinitis due to other allergic trigger, unspecified seasonality SPRAY 1 SPRAY INTO EACH NOSTRIL ONCE PER DAY. 48 mL 2024 Active Diclofenac Sodium 1 % gel APPLY 2 GRAMS TOPICALLY IN THE MORNING, AT NOON AND AT BEDTIME NEEDED FOR PAIN 100 g 2024 Active Diclofenac Sodium 1 % gel APPLY 2 GRAMS TOPICALLY IN THE MORNING, AT NOON AND AT BEDTIME NEEDED FOR PAIN 100 g 08/15 Discontinued Active Problems Problem Noted Date Diagnosed Date Major depressive disorder in remission Assessment & Plan (07/04/2025 9:14 AM EDT): During [facility] Consult Linda presenting with depressed mood, Tearful, psychomotor retardation, fatigue/loss of energy, inappropriate/excessive guilt , difficulty concentrating, indecisiveness and Flashbacks, Intrusive trauma memories and thoughts, and Avoidance of trauma reminders/triggers; for a period of 0-6 mo, for most or all symptoms in the context of unable to identify significant stressors. Pt reported her depression was associated with her housing situation. Pt is now living a different housing placement and feels safer. Past experiences in penitentiary facilities are causing distress in her mental health - more information needed to rule out PTSD diagnosis. Pt has positive support from her daughters. Her medical conditions are also identified as trigger for depressive sxs. Acute panniculitis 06/12/2025 Assessment & Plan (06/12/2025 2:53 PM EDT): On left upper extremity, unclear if related to injection at SNF stay Advised to use diclofenac gel, avoid massaging of the area Reconsult as needed if area becomes red, she develops fever or worsening pain Reconsult as needed if she develops arm edema, may need DVT ultrasound PTSD (post-traumatic stress disorder) 06/12/2025 Assessment & Plan (06/12/2025 2:59 PM EDT): From recent hospitalizations and other traumatic events, patient agreed to evaluation Lateral epicondylitis of left elbow 06/12/2025 Assessment & Plan (06/12/2025 2:58 PM EDT): Refer to OT, will call [facility] Use Tylenol diclofenac gel as needed Edema of both ankles 06/11/2025 Assessment & Plan (06/12/2025 2:41 PM EDT): You described uretheral to medications, either amlodipine or gabapentin. Will lower gabapentin to 100 mg nightly which was Rx'd for anxiety and neuropathy. Will follow-up BMP closely and once creatinine is back to baseline, will restart benazepril and probably taper down to off amlodipine. Follow-up at next visit Current moderate episode of major depressive disorder without prior episode ([facility]) 04/19/2025 Assessment & Plan (06/12/2025 2:38 PM EDT): Patient seems to have recurrent racing thoughts and nightmares from last year's hospitalizations and sometimes combined with bad experience at SNF this year. Agreed to be referred to for counseling Gabapentin has been decreased due to lower extremity edema and she will not start duloxetine until sodium levels are more stable, she will take mirtazapine 7.5 mg twice daily as needed anxiety only. Assessment & Plan (04/19/2025 3:18 PM EDT): PHQ-9 is 16, patient has recurrent depressive symptoms currently with PTSD? From last year's hospitalization. I have an extensive discussion about effect of depression and previous traumatic events and the importance of psychotherapy, she agreed to referral Start duloxetine 20 mg and follow-up with me in 4 weeks I increase gabapentin mostly for neuropathy, may help with anxiety. Patient feels safe at home and is able to reach out for safety I will do MMSE at next visit, see if symptoms of forgetfulness may be related to depression. Restless leg syndrome 05/24/2024 Assessment & Plan (04/19/2025 3:15 PM EDT): Exacerbated lately, likely related to anxiety, she is on increased dose of ropinirole and will increase gabapentin Recommended to take OTC iron and continue magnesium sulfate at night Follow-up with sleep specialist Assessment & Plan (05/24/2024 12:26 PM EDT): - pt recently started on Ropinirole and Gabapentin, doing well - will f/u with sleep specialist with sleep study results Varicose veins of both lower extremities with pa in 05/24/2024 Assessment & Plan (04/19/2025 3:09 PM EDT): Should be using compression stockings to thigh level 15-20 mmHg or stronger if tolerated, will order a prescription for dose Assessment & Plan (05/24/2024 12:31 PM EDT): - recommended use of compression stockings Decreased attention Span 05/24/2024 Assessment & Plan [...] community programs and could be referred to [facility]) - will f/u next visit to see if she needs a new hearing test - will evaluate MSE next visit, CT scan and most recent labs are within normal limits. 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 Continue daily vit D, check Vit D levels and adjust meds prn Continue Prolia infusion Tear of medial meniscus of left knee 10/22/2023 10/22/2023 Assessment & Plan (04/19/2025 3:13 PM EDT): Has recurrent knee pain, I told her to reach out to orthopedics for another cortisone injection Advised to walk with a cane or walker as needed, fall prevention discussed with patient Vitamin D deficiency 10/22/2023 10/22/2023 Lumbar facet arthropathy 10/22/2023 023 Assessment & Plan (11/19/2023 12:43 PM EST): Significant improving, has some residual foot cramps Recommended stretching exercises, wear warm clothes Reconsult PRN Hyperparathyroidism 10/22/2023 10/22/2023 Hypoglycemia 09/06/2023 Grief at loss of child 08/27/2023 Assessment & Plan (08/27/2023 11:53 AM EDT): Pt will be traveling to [facility] for the for her child. Prescription for 3 months given to pt She seems to be coping well and is around family I will fu on her return Hyponatremia 08/27/2023 Assessment & Plan (06/12/2025 2:16 PM EDT): Improved with fluid restriction, continue monitoring sodium. Patient has not restarted duloxetine yet since she picked it up, advised to stay off it until electrolyte status dialyzed Will have her follow-up with renal and endocrinology Assessment & Plan (08/27/2023 11:54 AM EDT): Resolved upon SNF discharge Recheck BMP Fu with me Shingles 08/27/2023 Assessment & Plan (08/27/2023 11:56 AM EDT): Partial improvements She will add lidocaine cream to effected area and pt will take tramadol 25-50 mg prn severe pain We discussed about zoster IZ, unfortunately pt could not afford IZ at the time, Fu 3 months Prediabetes 05/06/2023 Assessment & Plan (11/19/2023 4:00 PM EST): I have discussed with patient regarding increasing physical activity and decrease calorie intake I'll check FBS with next set of labs. To check RBS at next visit. RBS wnl Will reschedule appointment w/ smoking pipe maker when she returns form her trip from [facility] Fu 4-6 m Assessment & Plan (09/09/2023 9:44 AM EDT): Controlled. A1c is at goal. Encourage to remain hydrated at all times and I will refer to smoking pipe maker, counseled re more frequent low calorie/carb meals. [...] pain, caution regarding dizziness, risk of falls. Abnormal foot pulse 10/06/2022 Patellofemoral arthritis of left knee 10/06/2022 Assessment & Plan (06/12/2025 3:01 PM EDT): Partial improvement after PT at [facility], I will refer to orthopedic surgery, may need steroid injection Continue diclofenac gel as needed + Tylenol/tramadol low-dose as needed severe pain Bilateral tinnitus 10/06/2022 Chronic gastritis 10/06/2022 Decreased hearing 10/06/2022 Esophagitis determined by biopsy 10/06/2022 Epigastric pain 10/06/2022 Erosive esophagitis 10/06/2022 Hyperglycemia 10/06/2022 Assessment & Plan (05/06/2023 2:17 PM EDT): Increase in BMP I discussed diagnosis of IGT with patient and gave her information for treatment refer to dietitian fu with me in 4 months Multinodular goiter 10/06/2022 Neuropathy 10/06/2022 Effusion, left knee 10/06/2022 Right leg pain 10/06/2022 Paresthesia of foot 10/06/2022 Spinal stenosis of lumbar region 10/06/2022 Subclinical hyperthyroidism 10/06/2022 Assessment & Plan (06/12/2025 2:15 PM EDT): Continue methimazole and advised to reschedule appointment with endocrinology Abnormal LFTs 10/06/2022 At risk for falls 10/06/2022 Lumbosacral radiculopathy 10/06/2022 Assessment & Plan (06/12/2025 2:42 PM EDT): Start tramadol 25 to 50 mg + Tylenol twice daily as needed severe pain, caution with sedation and severe constipation. Will lower gabapentin to 100 mg nightly and add lidocaine patch as needed for neuropathic pain Advised her to schedule appointment with pain clinic where she was referred to last month but he could not go as she was hospitalized. Advised her to come to acupuncture clinic and consider referral to our in-house chronic pain clinic, she will get back to me on that or will follow-up next month Assessment & Plan (06/11/2025 10:09 AM EDT): >>ASSESSMENT AND PLAN FOR LUMBAR BACK PAIN WITH RADICULOPATHY AFFECTING LEFT LOWER EXTREMITY WRITTEN ON 01/27/2023 11:08 AM BY LEORA CHIU Symptoms seem to have improved significantly. Continue ambulation as tolerated with a cane. Take Tylenol PRN and continue off gabapentin. Assessment & Plan (06/11/2025 10:09 AM EDT): >>ASSESSMENT AND PLAN FOR LUMBAR BACK PAIN WITH RADICULOPATHY AFFECTING LEFT LOWER EXTREMITY WRITTEN ON 05/06/2023 2:17 PM BY LEORA CHIU Pt has lower extremity neuropathy/lumbar radiculopathy She did not tolerate epidural injections She did not tolerate gabapentin in the past continue PT for now Assessment & Plan (05/24/2024 12:41 PM EDT): - pt is doing well but we dicussed about avoiding lifting heavy objects and precaution about falls. - she may need help with some ADLs that require heavy lifting or put her at risk of falls (grocery shopping, laundry, and some house keeping), will refer for evaluation of WELDING OPERATOR - dicussed with pt regarding risk of falls, using a cane Peripheral nerve disease 09/21/2019 Disorder of peripheral [...] flonase PRN Hypertension 03/13/2019 Assessment & Plan (06/12/2025 2:14 PM EDT): Controlled on amlodipine, she is off benazepril due to NICK. Will order BMP, if GFR is above 45, will restart benazepril instead of amlodipine due to potential leg edema/water retention from calcium channel april. Monitor BP weekly to adjust medications at next visit and follow-up in 4 weeks Assessment & Plan (05/06/2023 2:18 PM EDT): [...] months. CKD (chronic kidney disease), stage IV ([facility]) 03/13/2019 10/22/2023 Assessment & Plan (06/12/2025 2:30 PM EDT): Acute on chronic likely related to dehydration or hypotension. Continue holding benazepril and will not start duloxetine for now FU w renal, unclear if anemia related to CKD Assessment & Plan (04/19/2025 3:11 PM EDT): GFR has remained stable in the mid 40s, will check BMP especially given history of hyperkalemia Follow-up with teenage babysitter, continue benazepril Assessment & Plan (05/24/2024 12:32 PM EDT): - last GFR was within normal limits - continue to f/u every year High cholesterol 03/13/2019 Goiter 03/13/2019 Resolved Problems Problem Noted Date Diagnosed Date Resolved Date Acute adenoviral follicular conjunctivitis of both eyes 04/19/2025 06/11/2025 Assessment & Plan (04/19/2025 3:11 PM EDT): Use erythromycin ointment on affected eyes and reconsult as needed Bilateral sacroiliitis 10/22/2023 10/22/202305/24 Primary insomnia 09/09/2023 06/12/2025 Assessment & Plan (09/09/2023 9:47 AM EDT): Did not improve with Rx, difficult to increase doses or give a stronger Rx due to recent syncope Refer to sleep medicine Discussed with Pt regarding sleep hygiene FU 3 months Syncope 09/06/2023 06/12/2025 Assessment & Plan (09/09/2023 9:50 AM EDT): Most likely due to hyperglycemia/hemodynamic changes I have discussed with patient regarding increasing physical activity and decrease calorie intake Counseled to remain hydrated I'll check FBS with next set of labs. To check RBS at next visit. FU with me next visit Bilateral knee pain 05/06/2023 04/19/20 Assessment & Plan (05/06/2023 2:16 PM EDT): most likely related to radiculopathy, unclear if she has plantar fasciitis refer to podiatry Habitual snoring 10/15/2022 04/19/2025 Candidal intertrigo 10/06/2022 04/19/20 25 Dizziness 10/06/2022 04/19/2025 Hand joint pain 10/06/2022 04/19/2025 Assessment & Plan (11/16/2024 8:53 PM EST): Most likely OA, has done OT. Take tylenol, she wants to be referred to rheumatology. Knee pain 10/06/2022 04/19/2025 Encounters * This document contains information received from the source organization and may not represent a complete record from that organization. Date Type Department Care Team Description 08/14/2025 Refill [facility] [place] [address] Margarita Reyes MD 08/09/2025 Patient Outreach [facility] [place] [address] Evi Thomson MD Pre-visit Planning (SDOH screening completed on 06/13/2025) 07/13/2025 Refill [facility] [place] [address] Norma Avitia DO Allergic rhinitis due to other allergic trigger, unspecified seasonality 07/09/2025 Refill [facility] [place] [address] Evi Thomson MD 06/25/2025 Travel 06/22/2025 Refill [facility] [address] [place] [phone] Evi Thomson MD 06/15/[address] [phone] Evi Thomson MD Prior Authorization (Medicare PA: Lidocaine 5% Patches) 06/14/[address] [address] Evi Thomson MD Med Refill 06/13/[address] [address] Kylah Clark, EDITA Care Coordination 06/12/2025 Results Follow-Up [address] [address] Evi Thomson MD Basic Metabolic Panel, Magnesium 06/11/2025 10:00 AM EDT Office Visit [address] [phone] Evi Thomson MD Hyponatremia (Primary Dx); Primary hypertension; Subclinical hyperthyroidism; CKD (chronic kidney disease), stage IV (CMS/HCC); Lumbosacral radiculopathy; Edema of both ankles; Current moderate episode of major depressive disorder without prior episode (CMS/HCC); PTSD (post-traumatic stress disorder); Acute panniculitis; Lateral epicondylitis of left elbow; Patellofemoral arthritis of left knee 06/11/2025 Travel 06/07/[address] [phone] Evi Thomson MD chart prep 05/17/2025 Patient Outreach [address] [phone] Evi Thomson MD Transition Of Care (Tcm) (HDF scheduled) 05/17/[address] [phone] Evi Thomson MD Medication Question; Nurse Triage 05/17/[address] [phone] Evi Thomson MD July recall from Last 3 Months Immunizations Immunization Administration Dates Next Due Influenza High-dose Quadriva lent Preservative Free 10/06/2022,10/01/2020 Influenza Injectable Quadriv alant Preservative Free IIV4 MDCK 10/28/2021 Influenza injectable quadriv alent preservative free 08/24/2019 Moderna Covid-19 Vaccine 12+ 10/17/2021,03/20/20,02/20/2021 Pfizer Covid-19 Vaccine 12+ 04/04/2024 Pneumococcal Conjugate [...] housing situation today? I have isidra anila 06/13/[address] you li [...] Sign Reading Time Taken Comments Blood Pressure 126/70 07/21/2025 11:42 AM EDT Pulse 70 07/21/2025 11:42 AM EDT Temperature 36.8 C (98.3 F) 07/21/2025 11:42 AM EDT Respiratory Rate 22 07/21/2025 11:42 AM EDT Oxygen Saturation 98% 07/21/2025 11:42 AM EDT Inhaled Oxygen Concentration - - Weight 65.8 kg (145 lb) 07/21/2025 11:42 AM EDT Height 149.9 cm (4' 11 ) 07/21/2025 11:42 AM EDT Body Mass Index 29.29 07/21/2025 11:42 AM EDT Plan of Treatment Upcoming Encounters Date Type Department Care Team (Late st Contact Info) Description 08/17/2025 10:30 AM EDT Office Visit [facility] [address] [place] [address] Evi Thomson MD [address] [place] [address] Health Maintenance Due Date Last Done Comments Alcohol/Substance Use Screening 1952 Zoster Vaccines (1 of 2) 1988 RSV Patients and Patients Aged 60 years or older (1 - 1-dose 75+ series) 2013 COVID-19 Vaccine ( season) 2025 04/04/2024, 10/17/2021, 03/20/2021, Additional history exists Influenza Vaccine (#1) 2025 2, 10/28/2021, 10/01/2020, Additional history exists Diabetes: Hemoglobin A1C 12/25/2025 025, 09/06/2023, 05/06/2023, Additional history exists SDOH Screening 06/13/2026 06/13/2025 Depression Screening 07/04/2026 07/04/2025, 07/04/20 25 Tobacco Screening 07/21/2026 07/21/2025 Lipid Panel 12/25/2029 12/25/2024, 01/14, 10/01/2020 DTaP/Tdap/Td Vaccines (2 - Td or [...] 11:42 AM EDT) No Valerio Sweet PharmD Procedures Procedure Name Priority Date/Time Associated Diagnosis Comments MAGNESIUM Routine 06/11/2025 11:36 AM EDT Hyponatremia BASIC METABOLIC PANEL Routine 06/11/2025 11:36 AM EDT Hyponatremia LIPID PANEL, STANDARD Routine 12/25/2024 10:29 AM EST Prediabetes Primary hypertension POCT GLYCATED HEMOGLOBIN, TOTAL Routine 12/25/2024 10:18 AM EST Prediabetes from Last 3 Months or Most Recently Relevant to Health Maintenance Results * Magnesium (06/11/2025 11:36 AM EDT) Magnesium 2.2 1.6 - 2.6 mg/dL [facility] Blood Venous blood specimen / Unknown 06/11/2025 11:36 AM EDT 06/11/2025 1:03 PM EDT us Evi Thomson MD LAB BLOOD ORDERABLES Fin al Result [facility] [address] [place] [phone] * (ABNORMAL) Basic Metabolic Panel (06/11/2025 11:36 AM EDT) Sodium 134(L) 135 - 145 mmol/L [facility] Potassium 4.7 3.3 - 5.1 mmol/L [facility] Chloride 103 96 - 108 mmol/L [facility] Carbon Dioxide 22 22 - 29 mmol/L [facility] Anion Gap 14 12 - 20 [facility] Urea Nitrogen (BUN) 24(H) 9 - 16 mg/dL [facility] Creatinine, Serum 1.34 0.5 - 1.4 mg/dL [facility] Estimated Glomerular Filt Rate 38 [facility] Comment:Chronic Kidney Disea se: Estimated GFR < 60 mL/min/[id number] Kidney Disease: Estimated GFR < 15 mL/min/1.73m2 Glucose 106 60 - 115 mg/dL [facility] Calcium 8.9 8.4 - 10.2 mg/dL [facility] Blood Venous blood specimen / Unknown 06/11/2025 11:36 AM EDT 06/11/2025 1:03 PM EDT us Evi Thomson MD LAB BLOOD ORDERABLES Fin al Result [facility] [address] [place] [address] [phone] * (ABNORMAL) Lipid Panel, Standard (12/25/2024 10:29 AM EST) Triglycerides 322(H) <150 mg/dL [facility] Comment:Slight Lipemia.Amber able Triglyceride: less than 150 mg/dLBorderline High Triglyceride 150-199 mg/dLHigh Triglyceride: 200-499 mg/dLVery High Triglyceride: greater than or equal to 5OO mg/dL Cholesterol 123 <200 mg/dL [facility] Comment:Desirable Cholestero l: less than 200 mg/dLBorderline High Cholesterol: 200-239 mg/dLHigh Cholesterol: greater than 239 mg/dL LDL Cholesterol Calculated 27 <100 mg/dL [facility] Comment:Desirable LDL: less than 100 mg/dLNear Optimal/Above Optimal LDL: 110- 129 mg/dLBorderline High LDL: 130-159 mg/dLHigh LDL: 160-189 mg/dLVery High LDL: greater than or equal to 190 mg/dL HDL Cholesterol 32(L) >40 mg/dL [facility] Comment:Desirable HDL: great er than 40 mg/dL Note: This HDL assay may give artificially low results in patients with liver disease. Blood Venous blood specimen / Unknown 12/25/2024 10:29 AM EST 12/25/2024 1:59 PM EST us Duyen Schwab MD LAB BLOOD ORDERABLES Final Resul t [facility] [address] [place] [phone] * (ABNORMAL) POCT A1C (12/25/2024 10:18 AM EST) Hemoglobin A1C 5.8 4.0 - 6.0 % QC Media Lot # Comment:[id number] Lot# Expiration Date Comment:09/01/2026 Blood 12/25/2024 10:1 8 AM EST Duyen Schwab MD POINT OF CARE TEST ENTER/EDIT OR DERABLES Final Result from Last 3 Months or Most Recently Relevant to Health [place] [address] [facility] [place] [address] [place] [address] [place] [address] Care Teams L D Rn Relationship Specialty Start Date End Date Evi Thomson MD [address] [place] [address] PCP - General Family Medicine 03/13/19 Valerio Sweet, NickiD [address] [place] [address] Pharmacist Internal Medicine 11/02/22 Olimpia A 05/17/25
== END 2025-08-15 15:33 | disposition home or self-care (01) ==
LOC: HO.HSMS 14:55
PROVIDERS: PCP Internal Medicine; Visit Provider Psychiatry & Neurology Neurology
DX: G25.81 Restless legs syndrome (principal); G47.33 Obstructive sleep apnea (adult) (pediatric)
CPT/HCPCS: 99214; G2211

== ENCOUNTER → 2025-08-15 14:55 | Outpatient (BNVA) | payer MEDICARE, MEDICAID, SELFPAY | PROVIDERS: PCP Internal Medicine; Visit Provider Psychiatry & Neurology Neurology | DX: G25.81 Restless legs syndrome (principal); G47.33 Obstructive sleep apnea (adult) (pediatric); Z99.89 Dependence on other enabling machines and devices | CPT/HCPCS: 99212 ==

== ENCOUNTER 2025-09-19 07:54 | Outpatient (REF) | payer MEDICARE, MEDICAID, SELFPAY ==
--- OUTSIDE RECORDS SUMMARY | 2025-09-19 08:00 | XMS_ITS | Encounter Summary ---
Author Organization [employer] Address [address] [facility] [address] [place] [address] Care Team Providers Care Film Painter Name Role Phone Evi Thomson MD Primary Care Provider + Valerio Sweet PharmD Unavailable [phone] Encounter Details Date Type Department Care Team (Late st Contact Info) Description 11/24/2022 Orders Only [facility] MEDICINE [address] [place], [place] [phone] Evi Thomson MD [address] [place], [place] [phone] Hyperkalemia (Primary Dx) Social History Tobacco Use [...] hyperkalemia. Please call renal and ask that childcare center administrator calls me back to discuss hyperkalemia and possibility of lokelma or changing meds documented in this encounter Plan of Treatment Not on file documented as of this encounter Procedures Procedure Name Priority Date/Time Associated Diagnosis Comments POTASSIUM Routine 11/27/2022 8:47 AM EST Hyperkalemia documented in this encounter Results * Potassium (11/27/2022 8:47 AM EST) Potassium 5.1 3.5 - 5.3 mmol/L [facility] Blood Venous blood specimen / Unknown 11/27/2022 8:47 AM EST 11/27/2022 8:48 AM EST Narrative [facility] - 11/27/2022 8:46 PM EST FASTING:YES FASTING: YES us Evi Thomson MD LAB BLOOD ORDERABLES Fin al Result [facility] [address], [place] [address] [facility] [address] [facility], ([address]) [place] [address] documented in this encounter Visit Diagnoses Diagnosis Hyperkalemia- Primary Hyperpotassemia documented in this encounter Care Teams Film Painter Relationship Specialty Start Date End Date Evi Thomson MD [address] [place] [address] PCP - General Family Medicine 03/13/19 Valerio Sweet, PharmD [address] [place] [address] Pharmacist Internal Medicine 11/02/22 Olimpia JOSUE 05/17/25 documented as of this encounter
--- OUTSIDE RECORDS SUMMARY | 2025-09-19 08:00 | XMS_ITS | Encounter Summary ---
Author Organization [employer] Address [address] [facility] [address] [place] [address] Care Team Providers Care Biodiesel Production Technician Name Role Phone Evi Thomson MD Primary Care Provider + Valerio Sweet PharmD Unavailable [phone] Reason for Visit * Reason Onset Date Comments Med Refill 06/14/2025 Encounter Details Date Type Department Care Team (Late st Contact Info) Description 06/14/2025 Telephone [facility] MEDICINE 230 [place], [place] [phone] Evi Thomson MD [address] [place], [place] [phone] Med Refill Social History Tobacco Use Types [...] 10:23 AM EDT Lidocaine was sent to [facility] #[id number] on 06/12/25 #30 with 1 refill and Ropinirole isn't prescribed by PCP. * Telephone Encounter - Shyam Silverio - 06/14/2025 10:18 AM EDT TC from pt requesting medication refill. Medications needing refill : rOPINIRole (Requip) 1 MG tablet lidocaine (Lidoderm) 5 % patch To be sent to: [facility]/pharmacy #[id number] - [address] documented in this encounter Plan of Treatment Not on file documented as of this encounter Goals Goal Patient Goal Type Associated Problems Recent Progress Patient-Stated? Author Blood Pressure < 140/90 Blood Pressure 132/64( 025 10:37 AM EDT) No Sweet, Valerio, PharmD documented as of this encounter Visit Diagnoses Not on filedocumented in this encounter Additional Health Concerns Assessment Noted Time PHQ-9 Depression Total Score: 4 06/13/20 25 10:23 AM EDT documented as of this encounter Care Teams Biodiesel Production Technician Relationship Specialty Start Date End Date Evi Thomson MD [address] [place] [address] PCP - General Family Medicine 03/13/19 Valerio Sweet, PharmD [address] [place] [address] Pharmacist Internal Medicine 11/02[facility] documented as of this encounter
--- OUTSIDE RECORDS SUMMARY | 2025-09-19 08:00 | XMS_ITS | Encounter Summary ---
Author Organization [employer] Address [address] [facility] [facility] [address] 7[address] [place] [address] Care Team Providers Care Team Automobile Assembler Name Role Phone Evi Thomson MD Primary Care Provider + Valerio Sweet PharmD Unavailable [phone] Reason for Visit * Reason Comments Med Refill Encounter Details Date Type Department Care Team (Late st Contact Info) Description 04/12/2024 Refill [facility] MEDICINE 230 [place], [place] [phone] Evi Thomson MD [address] [place], [place] [phone] Postherpetic neuralgia Social History Tobacco Use Types [...] Pressure 132/64( 025 10:37 AM EDT) No Valerio Sweet, PharmD documented as of this encounter Visit Diagnoses Diagnosis Postherpetic neuralgia Herpes zoster with other nervous system complications documented in this encounter Care Teams Team Automobile Assembler Relationship Specialty Start Date End Date Evi Thomson MD [address] [place] [address] PCP - General Family Medicine 03/13/19 Valerio Sweet, PharmD [address] [place] [address] Pharmacist Internal Medicine 11/02[facility]22 [facility] documented as of this encounter
--- OUTSIDE RECORDS SUMMARY | 2025-09-19 08:00 | XMS_ITS | Encounter Summary ---
Author Organization [employer] Address [address] [facility] 7t [place] [address] Care Team Providers Care Front Office Medical Assistant Name Role Phone Evi Thomson MD Primary Care Provider + Valerio Sweet PharmD Unavailable [phone] Reason for Visit * Reason Onset Date Comments HDF/Triage 01/07/2023 Encounter Details Date Type Department Care Team (Late st Contact Info) Description 01/07/2023 Telephone [facility] MEDICINE 230 [place], [place] [phone] Evi Thomson MD [address] [place], [place] [phone] HDF/Triage Social History Tobacco Use Types Packs/Day [...] HDF follow up appointment. Patient hospitalized at [facility] . Patient was admitted on 01/06/2023 and discharged on same day. Patient was advised will forward to triage nurse for follow up and appointment scheduling. Please contact pt son in law on [phone] documented in this encounter Plan of Treatment Not on file documented as of this encounter Visit Diagnoses Not on filedocumented in this encounter Care Teams Front Office Medical Assistant Relationship Specialty Start Date End Date Evi Thomson MD [address] [place] [address] PCP - General Family Medicine 03/13/19 Valerio Sweet PharmD [address] [place] [phone] Pharmacist Internal Medicine 11/02[facility] documented as of this encounter
--- OUTSIDE RECORDS SUMMARY | 2025-09-19 08:00 | XMS_ITS | Clinical Summary ---
Author Organization [facility] Address [address] [place] [address] Care Team Providers Care Radial Router Operator Name Role Phone Evi Thomson MD Primary Care Provider [phone] Medications No known medications Active Problems No [...] age to complete this topic Care Teams Radial Router Operator Relationship Specialty Start Date End Date Evi Thomson MD [address] [place] [phone] PCP - General Family Medicine 09/03/23
--- OUTSIDE RECORDS SUMMARY | 2025-09-19 08:00 | XMS_ITS | Encounter Summary ---
Author Organization [employer] Address [address] [facility] [address] [place] [address] Care Team Providers Care Manager News Name Role Phone Evi Thomson MD Primary Care Provider + Valerio Sweet PharmD Unavailable [phone] Reason for Visit * Reason Comments Med Refill Encounter Details Date Type Department Care Team (Late st Contact Info) Description 05/14/2024 Refill [facility] MEDICINE 230 [place], [place] [phone] Amrita Alfred FNP [address] [place], [place] [phone] Social History Tobacco Use Types Packs/Day Years [...] on filedocumented in this encounter Care Teams Manager News Relationship Specialty Start Date End Date Evi Thomson MD [address] [place] [address] PCP - General Family Medicine 03/13/19 Valerio Sweet PharmD [address] [place] [address] Pharmacist Internal Medicine 11/02/22 [facility] documented as of this encounter
--- OUTSIDE RECORDS SUMMARY | 2025-09-19 08:00 | XMS_ITS | Clinical Summary ---
Author Organization [employer] Address [address] [facility] [facility] [address] [facility] [address] 7[address] [place] [address] Care Team Providers Care Doll Dresser Name Role Phone Evi Thomson MD Primary Care Provider + Valerio Sweet PharmD Unavailable [phone] Allergies No known active allergies Medications * This document contains information received from the source organization and may not represent a complete record from that organization. methIMAzole (Tapazole) 5 MG tablet Take 0.5 tablets by mouth 1 (one) time each day. Active Elastic Bandages & Supports (B & B Knee Brace/Supports) [facility] 020 Active Blood Pressure Monitoring (Omron 3 [...] ORALLY DAILY FOR 30 DAYS 023 Active acetaminophen (Tylenol 8 Hour) 650 MG ER tabletIndications:Lumbo sacral radiculopathy TAKE 1-2 TABLETS BY MOUTH EVERY 8-12 HOURS NEEDED. SWALLOW WHOLE WITH WATER (MAX 3600MG/D). DO NOT BREAK, CRUSH, DISSOLVE AND/OR CHEW. 120 tablet 6 024 Active atorvastatin (Lipitor) 20 MG tabletIndications:Pure hypercholesterolemia TAKE 1 TABLET BY MOUTH EVERY MORNING 90 tablet 2 Active rOPINIRole (Requip) 1 MG tablet Take 1 tablet by mouth 2 times daily. Active gabapentin (Neurontin) 100 MG capsule Take 1 capsule (100 mg) by mouth at bedtime. 30 capsule 11 025 2025 Active lidocaine (Lidoderm) 5 % patchIndications:Lumbos acral radiculopathy Apply 1 patch topically Once per day. Remove & discard patch within 12 hours or as directed by MD. 30 patch 1 Active mirtazapine (Remeron) 15 MG tablet Take 0.5 tablets (7.5 mg) by mouth if needed in the morning and at bedtime (Anxiety, hold for sedation). 15 tablet 2 Active fluticasone (Flonase) 50 MCG/ACT nasal sprayIndications:Allerg ic rhinitis due to other allergic trigger, unspecified seasonality SPRAY 1 SPRAY INTO EACH NOSTRIL ONCE PER DAY. 48 mL Active Diclofenac Sodium 1 % gel APPLY 2 GRAMS TOPICALLY IN THE MORNING, AT NOON AND AT BEDTIME NEEDED FOR PAIN 100 g Active amLODIPine (Norvasc) 5 MG tabletIndications:Benig n hypertension TOME 1 TABLETA POR VIA ORAL TODOS [place] JOSEPH 90 tablet 3 Active Active Problems Problem Noted Date Diagnosed Date Major depressive disorder in remission Assessment & Plan (08/17/2025 3:31 PM EDT): Doing much better after psychotherapy and a trip to her home country to visit friends of family Continue mirtazapine and advised to reschedule appointment with counselor Assessment & Plan (07/04/2025 9:14 AM EDT): [...] placement and feels safer. Past experiences in detention facilities are causing distress in her mental health - more information needed to rule out PTSD diagnosis. Pt has positive support from her daughters. Her medical conditions are also identified as trigger for depressive sxs. PTSD (post-traumatic stress disorder) 06/12/2025 Assessment & Plan (08/17/2025 3:31 PM EDT): From recent hospitalizations, she is doing well with psychotherapy and counseling, I told her to reschedule appointment with counselor. Continue low-dose mirtazapine and follow-up in 6 months Assessment & Plan (06/12/2025 2:59 PM EDT): From recent hospitalizations and other traumatic events, patient agreed to evaluation Lateral epicondylitis of left elbow 06/12/2025 Assessment & Plan (08/17/2025 3:31 PM EDT): Significantly improved with diclofenac Reconsult as needed, may need OT Assessment & Plan (06/12/2025 2:58 PM EDT): [...] of major depressive disorder without prior episode (CMS/[facility]) 04/19/2025 Assessment & Plan (06/12/2025 2:38 PM [...] community programs and could be referred to [facility]) - will f/u next visit to see [...] SNF discharge Recheck BMP Fu with me Aminta 08/27/2023 Assessment & Plan (08/27/2023 11:56 AM [...] visit. RBS wnl Will reschedule appointment w/ council member when she returns form her trip from [facility] Fu 4-6 m Assessment & Plan (09/09/2023 9:44 AM EDT): Controlled. A1c is at goal. Encourage to remain hydrated at all times and I will refer to council member, counseled re more frequent low calorie/carb meals. [...] PM EDT): Partial improvement after PT at [facility], I will refer to orthopedic surgery, may [...] house keeping), will refer for evaluation of WOOD GRINDER OPERATOR - dicussed with pt regarding risk [...] months. CKD (chronic kidney disease), stage IV (CMS/HCC) 03/13/2019 10/22/2023 Assessment & Plan (06/12/2025 2:30 PM EDT): Acute on chronic likely related to dehydration or hypotension. Continue holding benazepril and will not start duloxetine for now FU w renal, unclear if anemia related to CKD Assessment & Plan (04/19/2025 3:11 PM EDT): GFR has remained stable in the mid 40s, will check BMP especially given history of hyperkalemia Follow-up with remote sensing advisor, continue benazepril Assessment & Plan (05/24/2024 12:32 PM EDT): - last GFR was within normal limits - continue to f/u every year High cholesterol 03/13/2019 Goiter 03/13/2019 Resolved Problems Problem Noted Date Diagnosed Date Resolved Date Acute panniculitis 06/12/2025 Assessment & Plan (06/12/2025 2:53 PM EDT): On left upper extremity, unclear if related to injection at SNF stay Advised to use diclofenac gel, avoid massaging of the area Reconsult as needed if area becomes red, she develops fever or worsening pain Reconsult as needed if she develops arm edema, may need DVT ultrasound Acute adenoviral follicular conjunctivitis of both eyes [...] organization. Date Type Department Care Team Description 09/17/2025 Refill [facility] MEDICINE [address] [place] [address] Evi Thomson MD Pure hypercholesterolemia 09/11/2025 Telephone [facility] MEDICINE [address] [place] [phone] Evi Thomson MD Med Refill 09/10/2025 Refill [facility] MEDICINE [address] [place] [phone] Norma Avitia DO Allergic rhinitis due to other allergic trigger, unspecified seasonality 09/10/2025 Refill [facility] MEDICINE [address] [place] [address] Evi Thomson MD Pure hypercholesterolemia 08/22/2025 Patient Outreach [facility] MEDICINE [address] [place], [place] [phone] Evi Thomson MD Medicare Annual Wellness Visit Initial (Annual wellness visit unscheduled) 08/17/2025 10:30 AM EDT Office Visit [facility] MEDICINE [address] [place] [address] Evi Thomson MD Major depressive disorder in remission, unspecified whether recurrent (CMS/HCC) (Primary Dx); PTSD (post-traumatic stress disorder); Lateral epicondylitis of left elbow; Benign hypertension; Encounter for immunization 08/17/2025 Travel 08/16/2025 Telephone [facility] MEDICINE [address] [place] [address] Evi Thomson MD Chart Prep 08/14/2025 Refill [facility] MEDICINE [address] [place] [phone] Margarita Reyes MD 08/09/2025 Patient Outreach [facility] MEDICINE [address] [place] [address] Evi Thomson MD Pre-visit Planning ([facility] screening completed on 06/13/2025) 07/13/2025 Refill [facility] MEDICINE [address] [place] [address] Norma Avitia DO Allergic rhinitis due to other allergic trigger, unspecified seasonality 07/09/2025 Refill [facility] MEDICINE [address] [place] [address] Evi Thomson MD 06/25/2025 Travel 06/22/2025 Refill [facility] MEDICINE [address] [place] [address] Evi Thomson MD from Last 3 Months Immunizations Immunization Administration Dates Next Due Influenza High-dose Quadriva lent Preservative Free 10/06/2022,10/01/2020 Influenza Injectable Quadriv alant Preservative Free IIV4 MDCK 10/28/2021 Influenza injectable quadriv alent preservative free 08/24/2019 Influenza, High Dose Seasona l, Preservative Free 08/17/2025 Moderna Covid-19 Vaccine 12+ 10/17/2021,03/20/20 21,02/20/2021 Pfizer [...] Sign Reading Time Taken Comments Blood Pressure 132/64 08/17/2025 10:37 AM EDT Pulse 60 08/17/2025 10:37 AM EDT Temperature 36.2 C (97.2 F) 08/17/2025 10:37 AM EDT Respiratory Rate 28 08/17/2025 10:37 AM EDT Oxygen Saturation 98% 07/21/2025 11:42 AM EDT Inhaled Oxygen Concentration - - Weight 69.4 kg (153 lb) 08/17/2025 10:37 AM EDT Height 151.8 cm (4' 11.75 ) 08/17/2025 10:37 AM EDT Body Mass Index 30.13 08/17/2025 10:37 AM EDT Plan of Treatment Health Maintenance Due Date Last Done Comments Alcohol/Substance Use Screening 1952 Zoster Vaccines (1 of 2) 1988 RSV Patients and Patients Aged 60 years or older (1 - 1-dose 75+ series) 2013 COVID-19 Vaccine ( season) 2025 04/04/2024, 10/17/2021, 03/20/2021, Additional history exists Diabetes: Hemoglobin A1C 12/25/2025 025, 09/06/2023, 05/06/2023, Additional history exists SDOH Screening 06/13/2026 06/13/2025 Depression Screening 07/04/2026 07/04/2025, 07/04/20 25 Tobacco Screening 08/17/2026 08/17/2025 Lipid Panel 12/25/2029 12/25/2024, 01/14, 10/01/2020 DTaP/Tdap/Td Vaccines (2 - Td or Tdap) 04/04/2034 04/04/2024 Pneumococcal Vaccine: 50+ Years Completed 04/04/2024 Influenza Vaccine Completed 08/17/2025, , 10/28/2021, Additional history exists HIB Vaccines Aged Out No longer eligi [...] 025 10:37 AM EDT) No Valerio Sweet, NickiD Procedures Procedure Name Priority Date/Time Associated Diagnosis Comments LIPID PANEL, STANDARD Routine 12/25/2024 10:29 AM EST Prediabetes Primary hypertension POCT GLYCATED HEMOGLOBIN, TOTAL Routine 12/25/2024 10:18 AM EST Prediabetes from Last 3 Months or Most Recently Relevant to Health Maintenance Results * (ABNORMAL) Lipid Panel, Standard (12/25/2024 10:29 AM EST) Triglycerides 322(H) <150 mg/dL [facility] Comment:Slight Lipemia.Amber able Triglyceride: less than 150 mg/dLBorderline High Triglyceride 150-199 mg/dLHigh Triglyceride: 200-499 mg/dLVery High Triglyceride: greater than or equal to 5OO mg/dL Cholesterol 123 <200 mg/dL [facility] Comment:Desirable Cholestero l: less than 200 mg/dLBorderline High Cholesterol: 200-239 mg/dLHigh Cholesterol: greater than 239 mg/dL LDL Cholesterol Calculated 27 <100 mg/dL [facility] Comment:Desirable LDL: less than 100 mg/dLNear Optimal/Above Optimal LDL: 110- 129 mg/dLBorderline High LDL: 130-159 mg/dLHigh LDL: 160-189 mg/dLVery High LDL: greater than or equal to 190 mg/dL HDL Cholesterol 32(L) >40 mg/dL [facility] Comment:Desirable HDL: great er than 40 mg/dL Note: This HDL assay may give artificially low results in patients with liver disease. Blood Venous blood specimen / Unknown 12/25/2024 10:29 AM EST 12/25/2024 1:59 PM EST us Duyen Schwab MD LAB BLOOD ORDERABLES Final Resul t [facility] [address] [place], [place] [phone] * (ABNORMAL) POCT A1C (12/25/2024 10:18 AM EST) Hemoglobin A1C 5.8 4.0 - 6.0 % QC Media Lot # Comment:[id number] Lot# Expiration Date Comment:09/01/2026 Blood 12/25/2024 10:1 8 AM EST Duyen Schwab MD POINT OF CARE TEST ENTER/EDIT OR DERABLES Final Result from Last 3 Months or Most Recently Relevant to Health [place] [address] [facility] [place] [address] [place] [address] [place] [address] Care Teams Doll Dresser Relationship Specialty Start Date End Date Evi Thomson MD [address] [place] [phone] PCP - General Family Medicine 03/13/19 Valerio Sweet, NickiD [address] [place] [address] Pharmacist Internal Medicine 11/02/22 [facility] 05/17/25
--- OUTSIDE RECORDS SUMMARY | 2025-09-19 08:00 | XMS_ITS | Encounter Summary ---
Author Organization [employer] Address [address] [place] [address] Care Team Providers Care Engine Watchman Name Role Phone Evi Thomson MD Primary Care Provider + Valerio Sweet PharmD Unavailable [phone] Reason for Visit * Reason Comments Med Change Request Encounter Details Date Type Department Care Team (Late st Contact Info) Description 06/22/2025 Refill [facility] MEDICINE [address] [place], [place] [phone] Evi Thomson MD [address] [place], [place] [phone] Social History Tobacco Use Types Packs/Day Years [...] 025 10:37 AM EDT) No Valerio Sweet, Karl documented as of this encounter Visit Diagnoses Not on filedocumented in this encounter Additional Health Concerns Assessment Noted Time PHQ-9 Depression Total Score: 4 06/13/20 25 10:23 AM EDT documented as of this encounter Care Teams Engine Watchman Relationship Specialty Start Date End Date Evi Thomson MD [address] [place] [address] PCP - General Family Medicine 03/13/19 Valerio Sweet PharmD [address] [place] [address] Pharmacist Internal Medicine 11/02[facility]22 [facility] documented as of this encounter
--- OUTSIDE RECORDS SUMMARY | 2025-09-19 08:00 | XMS_ITS | Encounter Summary ---
Author Organization [employer] Address [address] [address] [place] [address] Care Team Providers Care Cork Compounder Name Role Phone Evi Thomson MD Primary Care Provider + Valerio Sweet PharmD Unavailable [phone] Reason for Visit * Reason Comments Med Refill Encounter Details Date Type Department Care Team (Late st Contact Info) Description 09/10/2025 Refill [facility] MEDICINE [address] [place], [place] [phone] Evi Thomson MD [address] [place], [place] [phone] Pure hypercholesterolemia Social History Tobacco Use Types Packs/Day Years [...] as of this encounter Visit Diagnoses Diagnosis Pure hypercholesterolemia documented in this encounter Additional Health Concerns Assessment Noted Time PHQ-9 Depression Total Score: 5 07/04/20 25 8:47 AM EDT documented as of this encounter Care Teams Cork Compounder Relationship Specialty Start Date End Date Evi Thomson MD [address] [place] [address] PCP - General Family Medicine 03/13/19 Valerio Sweet, Karl [address] [place] [address] Pharmacist Internal Medicine [facility]02[facility] documented as of this encounter
--- OUTSIDE RECORDS SUMMARY | 2025-09-19 08:00 | XMS_ITS | Clinical Summary ---
Author Organization [employer] [facility] Address [address] [place] [address] Care Team Providers Care Drone Pilot Name Role Phone Evi Thomson MD Primary Care Provider Immunizations Immunization Administration Dates Next Due Moderna SARS-CoV-2 COVID-19, mRNA, LNP-S, preservative free 10/17/2021,03/20/2021,02/20/2021 Social History Tobacco Use Types Packs/Day Years Used Date Smoking Tobacco: Never Assessed Comments Unknown Sex and Gender Information Value Date Recorded Sex Assigned at Not on file Legal Sex Female 6:14 PM EST Gender Identity Not on file Sexual Orientation Not on file Obstetrics History Last Filed Vital Signs Vital Sign Reading Time Taken Comments Blood Pressure - - Pulse - - Temperature - - Respiratory Rate - - Oxygen Saturation - - Inhaled Oxygen Concentration - - Weight 68 kg (150 lb) 04/27/2022 1:43 PM EDT Height 152.4 cm (5') 04/27/2022 1:43 PM EDT Body Mass Index 29.3 04/27/2022 1:43 PM EDT Plan of Treatment Health Maintenance Due Date Last Done Comments DTaP,Tdap,and Td Vaccines (1 - Tdap) 1957 Pneumococcal Vaccine: 50+ Years (1 of 1 - PCV) 1988 Zoster Vaccines (1 of 2) 1988 RSV Immunization Adult Patients (1 - 1-dose 75+ series) 2013 Falls Risk Assessment 10/15/2022 Osteoporosis Screening (Bone Density Screening) 10/15/2022 Social Influencers of Health Screening 10/15/2022 Depression Screening 11/15/2024 COVID-19 Vaccine (4 - 2024-2 6 season) 2025 10/17/2021, 03/20/2021, 02/20/2021 Influenza Vaccine (#1) 2025 HIB Vaccines Aged Out No longer eligi [...] on patient's age to complete this topic MMR Vaccines Aged Out No longer eligi ble based on patient's age to complete this topic Meningococcal ACWY Vaccine Aged Out N o longer eligible based on patient's age to complete this topic Meningococcal B Vaccine Aged Out No l onger eligible based on patient's age to complete this topic RSV Immunization Patients Under 20 months Aged Out No longer eligible b ased on patient's age to complete this topic Varicella Vaccines Aged Out No longer eligible based on patient's age to complete this topic Care Teams Drone Pilot Relationship Specialty Start Date End Date Evi Thomson MD [address] [place] [phone] PCP - General 09/03/23
--- OUTSIDE RECORDS SUMMARY | 2025-09-19 08:00 | XMS_ITS | Clinical Summary ---
Author Organization [facility] Address [address] [place] [phone] Phone Care Team Providers Care Accountant Controller Name Role Phone Evi Thomson MD Primary [...] [facility] [address] [place] [address] Rikki Pratt MD Stage 3b chronic kidney [...] [facility] [address] [place] [address] Rikki Pratt MD [address] [facility] [address] [place] [address] Health Maintenance Due Date Last Done Comments Influenza Vaccine (#1) 2025 , 08/24/2019 Pneumococcal Vaccine: 50+ Years Completed 04/04/2024 Pneumococcal Vaccine: Peds (0 to 5 Years) and At-Risk Patients (6 to 49 Years) Discontinued 04/04/2024 Hepatitis B Vaccine Aged Out No longe r eligible based on patient's age to complete this topic Insurance Medicaid [place] Care Teams Accountant Controller Relationship Specialty Start Date End Date Evi Thomson MD [address] [place] [address] PCP - General 11/25/20
--- OUTSIDE RECORDS SUMMARY | 2025-09-19 08:00 | XMS_ITS | Encounter Summary ---
Author Organization [employer] Address [address] [place] [address] 7 [place] [address] Care Team Providers Care Doweler Name Role Phone Evi Thomson MD Primary Care Provider + Valerio Sweet PharmD Unavailable [phone] Encounter Details Date Type Department Care Team (Late st Contact Info) Description 10/06/2022 Abstract [facility] MEDICINE [address] [place] [address] Provider, MD Fuentes Social History Tobacco Use [...] on filedocumented in this encounter Care Teams Doweler Relationship Specialty Start Date End Date Evi Thomson MD [address] [place], [place] [phone] PCP - General Family Medicine 03/13/19 Valerio Sweet, PharmD [address] [place] [phone] Pharmacist Internal Medicine 11/02/22 Olimpia JOSUE 05/17/25 documented as of this encounter
--- OUTSIDE RECORDS SUMMARY | 2025-09-19 08:00 | XMS_ITS | Encounter Summary ---
Author Organization [employer] Address [address] 7t [place] [address] Care Team Providers Care Layout Former Name Role Phone Evi Thomson MD Primary Care Provider + Valerio Sweet PharmD Unavailable [phone] Reason for Visit * Reason Comments Med Refill Encounter Details Date Type Department Care Team (Late st Contact Info) Description 09/17/2025 Refill [facility] MEDICINE [address] [place], [place] [phone] Evi Thomson MD [address] [place], [place] [phone] Pure hypercholesterolemia Social History Tobacco Use Types [...] your housing situation today? I have isidra hgih 06/13/[address] you li [...] documented as of this encounter Care Teams Layout Former Relationship Specialty Start Date End Date Evi Thomson MD [address] [place] [address] PCP - General Family Medicine 03/13/19 Valerio Sweet, Karl [address] [place] [address] Pharmacist Internal Medicine 11/02/22 [facility] documented as of this encounter
--- OUTSIDE RECORDS SUMMARY | 2025-09-19 08:00 | XMS_ITS | Encounter Summary ---
Author Organization [employer] Address [address] 7t [place] [address] Care Team Providers Care Automotive Worker Name Role Phone Evi Thomson MD Primary Care Provider + Valerio Sweet PharmD Unavailable [phone] Reason for Visit * Reason Onset Date Comments pre op 12/05/2024 Encounter Details Date Type Department Care Team (Late st Contact Info) Description 12/05/2024 Telephone [facility] MEDICINE [address] [place], [place] [phone] Evi Thomson MD 230 [place], [place] [phone] pre op Social History Tobacco Use Types [...] to pre op appointment on 12/22/24 with [place]. Appointment reminder letter mailed * Telephone Encounter - Himanshu Nolen - 12/05/2024 2:43 PM EST Date of Surgery: 12/29 Surgical procedure being done: Bilateral Upper Eyelid Surgery and Muscle Surgery Type of anesthesia: MAC Lab needed: Yes EKG: Yes Surgeon's name: Facility name: [facility]. Surgeon's office number: [phone] Surgeon's office fax number: [phone] Contact name (person you spoke with): Ness [...] on filedocumented in this encounter Care Teams Automotive Worker Relationship Specialty Start Date End Date Evi Thomson MD [address] [place] [address] PCP - General Family Medicine 03/13/19 Valerio Sweet, PharmD [address] [place] [address] Pharmacist Internal Medicine 11/02/22 [place] [facility] 05/17/25 documented as of this encounter
--- OUTSIDE RECORDS SUMMARY | 2025-09-19 08:00 | XMS_ITS | Encounter Summary ---
Author Organization [employer] Address [address] 7t [place] [address] Care Team Providers Care Foundation Relations Manager Name Role Phone Evi Thomson MD Primary Care Provider + Valerio Sweet PharmD Unavailable [phone] Reason for Visit * Reason Comments Med Refill Encounter Details Date Type Department Care Team (Late st Contact Info) Description 07/05/2024 Refill [facility] MEDICINE 230 [place], [place] [phone] Evi Thomson MD 230 [place], [place] [phone] Allergic rhinitis due to other allergic trigger, [...] seasonality documented in this encounter Care Teams Foundation Relations Manager Relationship Specialty Start Date End Date Evi Thomson MD 230 [place] [address] PCP - General Family Medicine 03/13/19 Valerio Sweet, Karl [address] [place] [address] Pharmacist Internal Medicine 11/02/22 [facility] documented as of this encounter
--- OUTSIDE RECORDS SUMMARY | 2025-09-19 08:00 | XMS_ITS | Encounter Summary ---
Author Organization [employer] Address [address] [facility] 7t [place] [address] Care Team Providers Care Precision Printing Worker Name Role Phone Evi Thomson MD Primary Care Provider + Valerio Sweet PharmD Unavailable [phone] Encounter Details Date Type Department Care Team (Late st Contact Info) Description 10/16/2022 Orders Only [facility] MEDICINE 230 [place], [place] [phone] Evi Thomson MD 230 [place], [place] [phone] Social History Tobacco Use Types Packs/Day Years [...] on filedocumented in this encounter Care Teams Precision Printing Worker Relationship Specialty Start Date End Date Evi Thomson MD 230 [place] [address] PCP - General Family Medicine 03/13/19 Valerio Sweet, NickiD [address] [place] [address] Pharmacist Internal Medicine 11/02/22 Olimpia SPENCERA 05/17/25 documented as of this encounter
--- OUTSIDE RECORDS SUMMARY | 2025-09-19 08:00 | XMS_ITS | Encounter Summary ---
Author Organization [facility] Address [address] [facility] [address] [place] [address] Phone Care Team Providers Care Clerical Manager Name Role Phone Evi Thomson MD Primary Care Provider [phone] Encounter Details Date Type Department Care Team ([facility] Contact Info) Description 02/11/2021 Orders Only [facility] [address] [facility] [address] [place] [address] ProviderFuentes MD Social History Tobacco [...] Care Team ([facility] Contact Info) Description 01/17/2026 1:15 PM EST Office Visit [facility] [address] [place] [phone] Rikki Pratt MD [address] [facility] [address] [place] [address] documented as of this encounter Procedures Procedure Name Priority Date/Time Associated Diagnosis Comments EXT RESULT ENTRY Routine 02/11/2021 documented in this encounter Results * EXT RESULT ENTRY (02/11/2021) us Historical Provider LAB BLOOD ORDERABLES Clara l Result documented in this encounter Visit Diagnoses Not on filedocumented in this encounter Care Teams Clerical Manager Relationship Specialty Start Date End Date Evi Thomson MD [address] [place] [address] PCP - General 11/25/20 documented as of this encounter
--- OUTSIDE RECORDS SUMMARY | 2025-09-19 08:00 | XMS_ITS | Encounter Summary ---
Author Organization [employer] Address [address] 7t [place] [address] Care Team Providers Care Building Cleaning Supervisor Name Role Phone Evi Thomson MD Primary Care Provider + Valerio Sweet PharmD Unavailable [phone] Reason for Visit * Reason Onset Date Comments Med Refill 09/11/2025 Encounter Details Date Type Department Care Team (Late st Contact Info) Description 09/11/2025 Telephone [facility] MEDICINE 230 [place], [place] [phone] Evi Thomson MD [address] [place], [place] [phone] Med Refill Social History Tobacco Use Types [...] Telephone Encounter - Norma Cast LPN - 09/11/2025 2:49 PM EDT Atorvastatin was sent to [facility] #[id number] on 04/23/25 #90 with 2 refills. BENAZEPRIL 10 mg was discontinued. * Telephone Encounter - Sanjeev Maldonado - 09/11/2025 2:37 PM EDT TC from pt requesting medication refill. Medications needing refill : benazepril (Lotensin) 10 MG tablet [[id number]] DISCONTINUED atorvastatin (Lipitor) 20 MG tablet To be sent to: [facility]/pharmacy #1 - [place] [address] documented in this encounter Plan of Treatment Not on file documented as of this encounter Goals Goal Patient Goal Type Associated Problems Recent Progress Patient-Stated? Author Blood Pressure < 140/90 Blood Pressure 132/64( 025 10:37 AM EDT) No Valerio Sweet, NickiD documented as of this encounter Visit Diagnoses Not on filedocumented in this encounter Additional Health Concerns Assessment Noted Time PHQ-9 Depression Total Score: 5 07/04/20 25 8:47 AM EDT documented as of this encounter Care Teams Building Cleaning Supervisor Relationship Specialty Start Date End Date Evi Thomson MD [address] [place] [address] PCP - General Family Medicine 03/13/19 Valerio Sweet, NickiD [address] [place] [address] Pharmacist Internal Medicine 11/02/22 O[facility] A 05/17/25 documented as of this encounter
--- OUTSIDE RECORDS SUMMARY | 2025-09-19 08:00 | XMS_ITS | Encounter Summary ---
Author Organization [employer] Address [address] [facility] [address] 7t [place] [address] Care Team Providers Care Adoption Worker Name Role Phone Evi Thomson MD Primary Care Provider + Valerio Sweet PharmD Unavailable [phone] Encounter Details Date Type Department Care Team (Late st Contact Info) Description 08/10/2024 Telephone [facility] MEDICINE 230 [place], [place] [phone] Evi Thomson MD 230 [place], [place] [phone] Social History Tobacco Use Types Packs/Day Years [...] 025 10:37 AM EDT) No Valerio Sweet, PharmMckenna documented as of this encounter Visit Diagnoses Not on filedocumented in this encounter Care Teams Adoption Worker Relationship Specialty Start Date End Date Evi Thomson MD 230 [place] [address] PCP - General Family Medicine 03/13/19 Valerio Sweet, PharmD 230 [place] [address] Pharmacist Internal Medicine 11/02/22 [facility] 05/17/25 documented as of this encounter
--- OUTSIDE RECORDS SUMMARY | 2025-09-19 08:00 | XMS_ITS | Encounter Summary ---
Author Organization [employer] Address [address] 7t [place] [address] Care Team Providers Care Affirmative Action Specialist Name Role Phone Evi Thomson MD Primary Care Provider + Valerio Sweet PharmD Unavailable [phone] Reason for Visit * Reason Comments Med Refill Encounter Details Date Type Department Care Team (Late st Contact Info) Description 09/10/2025 Refill [facility] MEDICINE 230 [place], [place] [phone] Norma Avitia DO [address] [place], [place] [phone] Allergic rhinitis due to other allergic trigger, [...] trigger, unspecified seasonality documented in this encounter Additional Health Concerns Assessment Noted Time PHQ-9 Depression Total Score: 5 07/04/20 25 8:47 AM EDT documented as of this encounter Care Teams Affirmative Action Specialist Relationship Specialty Start Date End Date Evi Thomson MD 230 [place] [address] PCP - General Family Medicine 03/13/19 Valerio Sweet, Karl [address] [place] [address] Pharmacist Internal Medicine 11/02/22 [facility] 05/17/25 documented as of this encounter
--- OUTSIDE RECORDS SUMMARY | 2025-09-19 08:00 | XMS_ITS | Encounter Summary ---
Author Organization [employer] Address [address] 7t [place] [address] Care Team Providers Care Drawing Box Tender Name Role Phone Evi Thomson MD Primary Care Provider + Valerio Sweet PharmD Unavailable [phone] Reason for Visit * Reason Comments Med Refill Encounter Details Date Type Department Care Team (Late st Contact Info) Description 08/12/2024 Refill [facility] MEDICINE 230 [place], [place] [phone] Evi Thomson MD 230 [place], [place] [phone] Allergic rhinitis due to other allergic trigger, [...] seasonality documented in this encounter Care Teams Drawing Box Tender Relationship Specialty Start Date End Date Evi Thomson MD 230 [place] [address] PCP - General Family Medicine 03/13/19 Valerio Sweet, PharmD 230 [place] [address] Pharmacist Internal Medicine 11/02/22 [facility] documented as of this encounter
[2025-09-19 09:28] LABS: Anion Gap 10 (12-20); Blood Urea Nitrogen 29 mg/dL (9-16); Calcium 9.5 mg/dL (8.4-10.2); Carbon Dioxide 26 mmol/L (22-29); Chloride 107 mmol/L (96-108); Estimated Glomerular Filt Rate 42; Potassium 4.8 mmol/L (3.3-5.1); Sodium 138 mmol/L (135-145)
== END 2025-09-19 07:55 | disposition home or self-care (01) ==
LOC: HO.LAB 07:54
PROVIDERS: PCP Internal Medicine; Visit Provider Internal Medicine Endocrinology, Diabetes & Metabolism
DX: M81.0 Age-related osteoporosis without current pathological fracture (principal)
CPT/HCPCS: 36415; 80048

== ENCOUNTER 2025-09-28 08:39 | Outpatient (AMB) | payer MEDICARE, MEDICAID, SELFPAY ==
--- NOTE | 2025-09-28 08:55 | AM.OFFVISNUR ---
Vital Signs 09/28/25 09:00 09/28/25 09:01 BP 130/70 Blood Pressure Location Lt brachial Pulse 71 Pulse Source Pulse Oximeter Pulse Oximetry (%) 97 Oxygen Delivery Method Room Air Intake Visit Reasons: Prolia injection Architectural Project Manager Required: Yes Architectural Project Manager Services: Architectural Project Manager Present Architectural Project Manager Name: Patient's daughter Allergies No Known Allergies Allergy (Verified 09/28/25 09:02) Office Meds Prolia 60 mg/mL subcutaneous syringe Performing Provider: Sarthak Reyes MD Performing Location: [facility] Administered by: Bernice Francisco LPN on 09/28/25 09:05 Dose Route Admin Location Dispensed Lot Number Expiration Date NDC Ship'S Officer 60 mg subcut right upper arm 1 mL [id number] 11/14/27 38331-389-48 [facility] Total Dispensed Waste 1 mL 0 % Assessment & Plan Assessment & Plan (1) Osteoporosis: Code(s): M81.0 - Age-related osteoporosis without current pathological fracture Category: Medical Orders: Orders AMB Denosumab Injection Practice Supplied Today M81.0 - Age-related osteoporosis without current pathological fracture Coding Diagnoses Osteoporosis M81.0
--- OUTSIDE RECORDS SUMMARY | 2025-09-28 08:55 | XMS_ITS | Encounter Summary ---
Author Organization [employer] Address [address] [facility] 7t [place] [address] Care Team Providers Care Rn Dermatology Name Role Phone Evi Thomson MD Primary Care Provider + Valerio Sweet PharmD Unavailable [phone] Reason for Visit * Reason Onset Date Comments HDF/Triage 01/07/2023 Encounter Details Date Type Department Care Team (Late st Contact Info) Description 01/07/2023 Telephone [facility] MEDICINE 230 [place], [place] [phone] Evi Thomson MD 230 [place], [place] [phone] HDF/Triage Social History Tobacco Use Types Packs/Day [...] HDF follow up appointment. Patient hospitalized at [facility] . Patient was admitted on 01/06/2023 and discharged on same day. Patient was advised will forward to triage nurse for follow up and appointment scheduling. Please contact pt son in law on [phone] documented in this encounter Plan of Treatment Not on file documented as of this encounter Visit Diagnoses Not on filedocumented in this encounter Care Teams Rn Dermatology Relationship Specialty Start Date End Date Evi Thomson MD 230 [place] [address] PCP - General Family Medicine 03/13/19 Valerio Sweet PharmD [address] [place] [address] Pharmacist Internal Medicine 11/02/22 [facility] documented as of this encounter
--- OUTSIDE RECORDS SUMMARY | 2025-09-28 08:55 | XMS_ITS | Encounter Summary ---
Author Organization [employer] Address [address] 7t [place] [address] Care Team Providers Care Shop Helper Name Role Phone Evi Thomson MD Primary Care Provider + Valerio Sweet PharmD Unavailable [phone] Reason for Visit * Reason Comments Med Refill Encounter Details Date Type Department Care Team (Late st Contact Info) Description 09/17/2025 Refill [facility] MEDICINE 230 [place], [place] [phone] Evi Thomson MD 230 [place], [place] [phone] Pure hypercholesterolemia Social History Tobacco Use Types [...] documented as of this encounter Care Teams Shop Helper Relationship Specialty Start Date End Date Evi Thomson MD 230 [place] [address] PCP - General Family Medicine 03/13/19 Valerio Sweet, Karl [address] [place] [address] Pharmacist Internal Medicine 11/02/22 [facility] documented as of this encounter
--- OUTSIDE RECORDS SUMMARY | 2025-09-28 08:55 | XMS_ITS | Encounter Summary ---
Author Organization [employer] Address [address] [facility] [address] 7t [place] [address] Care Team Providers Care Plant Engineer Name Role Phone Evi Thomson MD Primary Care Provider + Valerio Sweet PharmD Unavailable [phone] Reason for Visit * Reason Comments Med Refill Encounter Details Date Type Department Care Team (Late st Contact Info) Description 09/10/2025 Refill [facility] MEDICINE 230 [place], [place] [phone] Norma Avitia DO 230 [place], [place] [phone] Allergic rhinitis due to other allergic trigger, [...] documented as of this encounter Care Teams Plant Engineer Relationship Specialty Start Date End Date Evi Thomson MD 230 [place] [address] PCP - General Family Medicine 03/13/19 Valerio Sweet, Karl [address] [place] [address] Pharmacist Internal Medicine 11/02/22 [facility] 05/17/25 documented as of this encounter
--- OUTSIDE RECORDS SUMMARY | 2025-09-28 08:55 | XMS_ITS | Encounter Summary ---
Author Organization [employer] Address [address] [facility] [address] 7t [place] [address] Care Team Providers Care Animal Maintenance Supervisor Name Role Phone Evi Thomson MD Primary Care Provider + Valerio Sweet PharmD Unavailable [phone] Reason for Visit * Reason Comments Med Refill Encounter Details Date Type Department Care Team (Late st Contact Info) Description 09/10/2025 Refill [facility] MEDICINE 230 [place], [place] [phone] Evi Thomson MD 230 [place], [place] [phone] Pure hypercholesterolemia Social History Tobacco Use Types [...] documented as of this encounter Care Teams Animal Maintenance Supervisor Relationship Specialty Start Date End Date Evi Thomson MD 230 [place] [address] PCP - General Family Medicine 03/13/19 Valerio Sweet, Karl [address] [place] [address] Pharmacist Internal Medicine 11/02/22 [facility] documented as of this encounter
--- OUTSIDE RECORDS SUMMARY | 2025-09-28 08:55 | XMS_ITS | Encounter Summary ---
Author Organization [employer] Address [address] [facility] 7t [place] [address] Care Team Providers Care Technologist Development Name Role Phone Evi Thomson MD Primary Care Provider + Valerio Sweet PharmD Unavailable [phone] Encounter Details Date Type Department Care Team (Late st Contact Info) Description 10/16/2022 Orders Only [facility] MEDICINE 230 [place], [place] [phone] Evi Thomson MD 230 [place], [place] [phone] Social History Tobacco Use Types Packs/Day Years [...] on filedocumented in this encounter Care Teams Technologist Development Relationship Specialty Start Date End Date Evi Thomson MD 230 [place] [address] PCP - General Family Medicine 03/13/19 Valerio Sweet, NickiD [address] [place] [address] Pharmacist Internal Medicine 11/02/22 Olimpia SPENCERA 05/17/25 documented as of this encounter
--- OUTSIDE RECORDS SUMMARY | 2025-09-28 08:55 | XMS_ITS | Encounter Summary ---
Author Organization [employer] Address [address] [facility] [address] [place] [address] Care Team Providers Care Civil Defense Director Name Role Phone Evi Thomson MD Primary Care Provider + Valerio Sweet PharmD Unavailable [phone] Reason for Visit * Reason Comments Med Change Request Encounter Details Date Type Department Care Team (Late st Contact Info) Description 06/22/[address] [facility] MEDICINE 230 [place], [place] [phone] Evi Thomson MD 230 [place], [place] [phone] Social History Tobacco Use Types Packs/Day Years [...] documented as of this encounter Care Teams Civil Defense Director Relationship Specialty Start Date End Date Evi Thomson MD 230 [place] [address] PCP - General Family Medicine 03/13/19 Valerio Sweet PharmD 230 [place] [address] Pharmacist Internal Medicine 11/02/22 [facility] documented as of this encounter
--- OUTSIDE RECORDS SUMMARY | 2025-09-28 08:55 | XMS_ITS | Clinical Summary ---
Author Organization [facility] Address [address] [place] [address] Care Team Providers Care Behavioral Health Director Name Role Phone Evi Thomson MD Primary Care Provider [phone] Medications No known medications Active Problems No [...] age to complete this topic Care Teams Behavioral Health Director Relationship Specialty Start Date End Date Evi Thomson MD [address] [place] [phone] PCP - General Family Medicine 09/03/23
--- OUTSIDE RECORDS SUMMARY | 2025-09-28 08:55 | XMS_ITS | Encounter Summary ---
Author Organization [employer] Address [address] 7t [place] [address] Care Team Providers Care Heel Caser Name Role Phone Evi Thomson MD Primary Care Provider + Valerio Sweet PharmD Unavailable [phone] Reason for Visit * Reason Onset Date Comments Med Refill 06/14/2025 Encounter Details Date Type Department Care Team (Late st Contact Info) Description 06/14/2025 Telephone [facility] MEDICINE 230 [place], [place] [phone] Evi Thomson MD [address] [place], [place] [phone] Med Refill Social History Tobacco Use Types [...] 10:23 AM EDT Lidocaine was sent to [facility] #[id number] on 06/12/25 #30 with 1 refill and Ropinirole isn't prescribed by PCP. * Telephone Encounter - Shyam Silverio - 06/14/2025 10:18 AM EDT TC from pt requesting medication refill. Medications needing refill : rOPINIRole (Requip) 1 MG tablet lidocaine (Lidoderm) 5 % patch To be sent to: [facility]/pharmacy #[id number] - [address] documented in this encounter Plan of [...] documented as of this encounter Care Teams Heel Caser Relationship Specialty Start Date End Date Evi Thomson MD [address] [place] [address] PCP - General Family Medicine 03/13/19 Valerio Sweet, PharmD [address] [place] [address] Pharmacist Internal Medicine 11/02/22 [facility] documented as of this encounter
--- OUTSIDE RECORDS SUMMARY | 2025-09-28 08:55 | XMS_ITS | Encounter Summary ---
Author Organization [employer] Address [address] [facility] [address] [place] [address] Care Team Providers Care Salesperson Used Cars Name Role Phone Evi Thomson MD Primary Care Provider + Valerio Sweet PharmD Unavailable [phone] Reason for Visit * Reason Onset Date Comments Med Refill 09/11/2025 Encounter Details Date Type Department Care Team (Late st Contact Info) Description 09/11/2025 Telephone [facility] MEDICINE 230 [place], [place] [phone] Evi Thomson MD 230 [place], [place] [phone] Med Refill Social History Tobacco Use Types [...] 2:49 PM EDT Atorvastatin was sent to [facility] #[id number] on 04/23/25 #90 with 2 refills. BENAZEPRIL 10 mg was discontinued. * Telephone Encounter - Sanjeev Maldonado - 09/11/2025 2:37 PM EDT TC from pt requesting medication refill. Medications needing refill : benazepril (Lotensin) 10 MG tablet [[id number]] DISCONTINUED atorvastatin (Lipitor) 20 MG tablet To be sent to: [facility]/pharmacy #1 - [place] [address] documented in this encounter Plan of [...] documented as of this encounter Care Teams Salesperson Used Cars Relationship Specialty Start Date End Date Evi Thomson MD 230 [place] [address] PCP - General Family Medicine 03/13/19 Valerio Sweet, NickiD 230 [place] [address] Pharmacist Internal Medicine 11/02/22 [facility]ia A 05/17/25 documented as of this encounter
--- OUTSIDE RECORDS SUMMARY | 2025-09-28 08:55 | XMS_ITS | Encounter Summary ---
Author Organization [employer] Address [address] [place] [address] 7 [place] [address] Care Team Providers Care Senior Abap Developer Name Role Phone Evi Thomson MD Primary Care Provider + Valerio Sweet PharmD Unavailable [phone] Encounter Details Date Type Department Care Team (Late st Contact Info) Description 10/06/2022 Abstract [facility] MEDICINE 230 [place] [address] Provider, MD Fuentes Social History Tobacco Use [...] on filedocumented in this encounter Care Teams Senior Abap Developer Relationship Specialty Start Date End Date Evi Thomson MD 230 [place], [place] [phone] PCP - General Family Medicine 03/13/19 Valerio Sweet, PharmD [address] [place] [address] [phone] Pharmacist Internal Medicine 11/02/22 [facility] JOSUE 05/17/25 documented as of this encounter
--- OUTSIDE RECORDS SUMMARY | 2025-09-28 08:55 | XMS_ITS | Encounter Summary ---
Author Organization [employer] Address [address] [facility] [address] 7t [place] [address] Care Team Providers Care Dopster Name Role Phone Evi Thomson MD Primary Care Provider + Valerio Sweet PharmD Unavailable [phone] Encounter Details Date Type Department Care Team (Late st Contact Info) Description 11/24/2022 Orders Only [facility] MEDICINE 230 [place], [place] [phone] Evi Thomson MD [address] [place], [place] [phone] Hyperkalemia (Primary Dx) Social History Tobacco Use [...] hyperkalemia. Please call renal and ask that hemodialysis rn calls me back to discuss hyperkalemia and possibility of lokelma or changing meds documented in this encounter Plan of Treatment Not on file documented as of this encounter Procedures Procedure Name Priority Date/Time Associated Diagnosis Comments POTASSIUM Routine 11/27/2022 8:47 AM EST Hyperkalemia documented in this encounter Results * Potassium (11/27/2022 8:47 AM EST) Potassium 5.1 3.5 - 5.3 mmol/L [employer] [place] [facility] Blood Venous blood specimen / Unknown 11/27/2022 8:47 AM EST 11/27/2022 8:48 AM EST Narrative [facility] - 11/27/2022 8:46 PM EST FASTING:YES FASTING: YES us Evi Thomson MD LAB BLOOD ORDERABLES Fin al Result [facility] [address], [place] [address] [employer] [place] [facility] 200 [facility], (Nl[address]) [place] [address] documented in this encounter Visit Diagnoses Diagnosis Hyperkalemia- Primary Hyperpotassemia documented in this encounter Care Teams Dopster Relationship Specialty Start Date End Date Evi Thomson MD [address] [place] [address] PCP - General Family Medicine 03/13/19 Valerio Sweet, PharmD [address] [place] [address] Pharmacist Internal Medicine 11/02/22 [place] JOSUE 05/17/25 documented as of this encounter
--- OUTSIDE RECORDS SUMMARY | 2025-09-28 08:56 | XMS_ITS | Encounter Summary ---
Author Organization [employer] Address [address] [facility] [address] 7t [place] [address] Care Team Providers Care Hod Carrier Name Role Phone Evi Thomson MD Primary Care Provider + Valerio Sweet PharmD Unavailable [phone] Reason for Visit * Reason Comments Med Refill Encounter Details Date Type Department Care Team (Late st Contact Info) Description 08/12/2024 Refill [facility] MEDICINE 230 [place], [place] [phone] Evi Thomson MD 230 [place], [place] [phone] Allergic rhinitis due to other allergic trigger, [...] seasonality documented in this encounter Care Teams Hod Carrier Relationship Specialty Start Date End Date Evi Thomson MD 230 [place] [address] PCP - General Family Medicine 03/13/19 Valerio Sweet, PharmD 230 [place] [address] Pharmacist Internal Medicine [facility]22 [facility] documented as of this encounter
--- OUTSIDE RECORDS SUMMARY | 2025-09-28 08:56 | XMS_ITS | Clinical Summary ---
Author Organization [facility] Address [address] [place] [phone] Phone Care Team Providers Care Upholstery Estimator Name Role Phone Evi Thomson MD Primary [...] Visit [facility] [address] [place] [address] Rikki Pratt MD Stage 3b chronic kidney disease (HCC) (Primary Dx); Hypertensive chronic kidney disease; Renal osteodystrophy; Essential hypertension from Last 3 Months Family History Medical History Relation Comments Cancer Mother colon Relation Status Comments Father Mother Social History Tobacco Use Types Packs/Day Years Used Date Smoking Tobacco: Former Cigarettes 0 Q uit: 07/31/1999 Smokeless Tobacco: Former Comments:Smoking [...] Visit [facility] [address] [place] [address] Rikki Pratt MD [address] [facility] [address] [place] [address] Health Maintenance Due Date Last Done Comments Influenza Vaccine (#1) 2025 , 08/24/2019 Pneumococcal Vaccine: 50+ Years Completed 04/04/2024 Pneumococcal Vaccine: Peds (0 to 5 Years) and At-Risk Patients (6 to 49 Years) Discontinued 04/04/2024 Hepatitis B Vaccine Aged Out No longe r eligible based on patient's age to complete this topic [place] Care Teams Upholstery Estimator Relationship Specialty Start Date End Date Evi Thomson MD [address] [place] [address] PCP - General 11/25/20
--- OUTSIDE RECORDS SUMMARY | 2025-09-28 08:56 | XMS_ITS | Encounter Summary ---
Author Organization [employer] Address [address] [facility] [address] 7t [place] [address] Care Team Providers Care Traffic Division Commanding Officer Name Role Phone Evi Thomson MD Primary Care Provider + Valerio Sweet PharmD Unavailable [phone] Reason for Visit * Reason Comments Med Refill Encounter Details Date Type Department Care Team (Late st Contact Info) Description 04/12/2024 Refill [facility] MEDICINE 230 [place], [place] [phone] Evi Thomson MD 230 [place], [place] [phone] Postherpetic neuralgia Social History Tobacco Use Types [...] complications documented in this encounter Care Teams Traffic Division Commanding Officer Relationship Specialty Start Date End Date Evi Thomson MD 230 [place] [address] PCP - General Family Medicine 03/13/19 Valerio Swete, PharmD 230 [place] [address] Pharmacist Internal Medicine 11/02/22 [facility] documented as of this encounter
--- OUTSIDE RECORDS SUMMARY | 2025-09-28 08:56 | XMS_ITS | Encounter Summary ---
Author Organization [employer] Address [address] [facility] [address] 7t [place] [address] Care Team Providers Care Lumber Carrier Operator Name Role Phone Evi Thomson MD Primary Care Provider + Valerio Sweet PharmD Unavailable [phone] Encounter Details Date Type Department Care Team (Late st Contact Info) Description 08/10/2024 Telephone [facility] MEDICINE 230 [place], [place] [phone] Evi Thomson MD 230 [place], [place] [phone] Social History Tobacco Use Types Packs/Day Years [...] on filedocumented in this encounter Care Teams Lumber Carrier Operator Relationship Specialty Start Date End Date Evi Thomson MD 230 [place] [address] PCP - General Family Medicine 03/13/19 Valerio Sweet, PharmD 230 [place] [address] Pharmacist Internal Medicine 11/02/22 [facility] 05/17/25 documented as of this encounter
--- OUTSIDE RECORDS SUMMARY | 2025-09-28 08:56 | XMS_ITS | Clinical Summary ---
Author Organization [employer] [facility] Address [address] [place] [address] Care Team Providers Care Finger Grip Machine Operator Name Role Phone Evi Thomson MD Primary Care Provider [phone] Immunizations Immunization Administration Dates Next Due Moderna [...] age to complete this topic Care Teams Finger Grip Machine Operator Relationship Specialty Start Date End Date Evi Thomson MD [address] [place] [phone] PCP - General 09/03/23
--- OUTSIDE RECORDS SUMMARY | 2025-09-28 08:56 | XMS_ITS | Encounter Summary ---
Author Organization [employer] Address [address] [facility] [address] 7t [place] [address] Care Team Providers Care Histologist Name Role Phone Evi Thomson MD Primary Care Provider + Valerio Sweet PharmD Unavailable [phone] Reason for Visit * Reason Comments Med Refill Encounter Details Date Type Department Care Team (Late st Contact Info) Description 07/05/2024 Refill [facility] MEDICINE 230 [place], [place] [phone] Evi Thomson MD 230 [place], [place] [phone] Allergic rhinitis due to other allergic trigger, [...] seasonality documented in this encounter Care Teams Histologist Relationship Specialty Start Date End Date Evi Thomson MD 230 [place] [address] PCP - General Family Medicine 03/13/19 Valerio Sweet, Karl [address] [place] [address] Pharmacist Internal Medicine 11/02/22 [facility] documented as of this encounter
--- OUTSIDE RECORDS SUMMARY | 2025-09-28 08:56 | XMS_ITS | Encounter Summary ---
Author Organization [facility] Address [address] [facility] [address] [place] [address] Phone Care Team Providers Care Reeling Operator Name Role Phone Evi Thomson MD Primary Care Provider [phone] Encounter Details Date Type Department Care Team ([facility] Contact Info) Description 02/11/2021 Orders Only [facility] [address] [facility] [address] [place] [address] ProviderFuentes MD Social History Tobacco Use Types Packs/Day Years Used Date Smoking Tobacco: Former Cigarettes 0 Q uit: 07/31/1999 Comments:Smoking History Inf o:Every [...] Upcoming Encounters Date Type Department Care Team ([facility] Contact Info) Description 01/17/2026 1:15 PM EST Office Visit [facility] [address] [place] [address] [place] [phone] Rikki Pratt MD [address] [facility] [address] [place] [address] documented as of this encounter Procedures Procedure Name Priority Date/Time Associated Diagnosis Comments EXT RESULT ENTRY Routine 02/11/2021 documented in this encounter Results * EXT RESULT ENTRY (02/11/2021) us Historical Provider LAB BLOOD ORDERABLES Clara l Result documented in this encounter Visit Diagnoses Not on filedocumented in this encounter Care Teams Reeling Operator Relationship Specialty Start Date End Date Evi Thomson MD [address] [place] [address] PCP - General 11/25/20 documented as of this encounter
--- OUTSIDE RECORDS SUMMARY | 2025-09-28 08:56 | XMS_ITS | Encounter Summary ---
Author Organization [employer] Address [address] [facility] [address] 7t [place] [address] Care Team Providers Care Cotton Agent Name Role Phone Evi Thomson MD Primary Care Provider + Valerio Sweet PharmD Unavailable Reason for Visit * Reason Onset Date Comments pre op 12/05/2024 Encounter Details Date Type Department Care Team (Late st Contact Info) Description 12/05/2024 Telephone [facility] 230 [place], [place] [phone] Evi Thomson MD 230 [place], [place] [phone] pre op Social History Tobacco Use Types [...] to pre op appointment on 12/22/24 with [place]. Appointment reminder letter mailed * Telephone Encounter - Himanshu Nolen - 12/05/2024 2:43 PM EST Date of Surgery: 12/29 Surgical procedure being done: Bilateral Upper Eyelid Surgery and Muscle Surgery Type of anesthesia: MAC Lab needed: Yes EKG: Yes Surgeon's name: Facility name: [facility]. Surgeon's office number: [phone] Surgeon's office fax number: [phone] Contact name (person you spoke with): Ness [...] on filedocumented in this encounter Care Teams Cotton Agent Relationship Specialty Start Date End Date Evi Thomson MD [address] [place] [address] PCP - General Family Medicine 03/13/19 Valerio Sweet, PharmD [address] [place] [address] Pharmacist Internal Medicine 11/02/22 [place] [facility] 05/17/25 documented as of this encounter
--- OUTSIDE RECORDS SUMMARY | 2025-09-28 08:56 | XMS_ITS | Encounter Summary ---
Author Organization [employer] Address [address] [facility] [address] 7t [place] [address] Care Team Providers Care Mixing Machine Operator Name Role Phone Evi Thomson MD Primary Care Provider + Valerio Sweet PharmD Unavailable Reason for Visit * Reason Comments Med Refill Encounter Details Date Type Department Care Team (Late st Contact Info) Description 05/14/2024 Refill [facility] MEDICINE 230 [place], [place] [phone] Amrita Alfred FNP 230 [place], [place] [phone] Social History Tobacco Use Types Packs/Day Years [...] on filedocumented in this encounter Care Teams Mixing Machine Operator Relationship Specialty Start Date End Date Evi Thomson MD 230 [place] [address] PCP - General Family Medicine 03/13/19 Valerio Sweet PharmD [address] [place] [address] Pharmacist Internal Medicine 11/02/22 [facility] documented as of this encounter
--- OUTSIDE RECORDS SUMMARY | 2025-09-28 08:56 | XMS_ITS | Clinical Summary ---
Author Organization [employer] Address [address] [facility] [address] 7t [place] [address] Care Team Providers Care Chairman & Ceo Name Role Phone Evi Thomson MD Primary Care Provider + Valerio Sweet PharmD Unavailable [phone] Allergies No known active allergies Medications * This document contains information received from the source organization and may not represent a complete record from that organization. methIMAzole (Tapazole) 5 MG tablet Take 0.5 tablets by mouth 1 (one) time each day. Active Elastic Bandages & Supports (B & B Knee Brace/Supports) [facility] 020 Active Blood [...] placement and feels safer. Past experiences in fpc facilities are causing distress in her mental [...] of major depressive disorder without prior episode (CMS/[facility]) 04/19/2025 Assessment & Plan (06/12/2025 2:38 [...] community programs and could be referred to [facility]) - will f/u next visit to [...] AM EDT): Pt will be traveling to [facility] for the for her child. Prescription [...] visit. RBS wnl Will reschedule appointment w/ forest pathology associate professor when she returns form her trip from [facility] Fu 4-6 m Assessment & Plan (09/09/2023 9:44 AM EDT): Controlled. A1c is at goal. Encourage to remain hydrated at all times and I will refer to forest pathology associate professor, counseled re more frequent low calorie/carb meals. [...] PM EDT): Partial improvement after PT at [facility], I will refer to orthopedic surgery, [...] house keeping), will refer for evaluation of [employer] - dicussed with pt regarding risk of [...] especially given history of hyperkalemia Follow-up with tie maker, continue benazepril Assessment & Plan (05/24/2024 12:32 [...] organization. Date Type Department Care Team Description 09/19/2025 Orders Only GENERIC EXTERNAL DATA DEPARTMENT Provider, Generic External Data 09/17/2025 Refill [facility] MEDICINE [address] [place] [address] Evi Thomson MD Pure hypercholesterolemia 09/11/2025 Telephone [facility] [address] [place] [address] Evi Thomson MD Med Refill 09/10/2025 Refill [facility] [address] [place] [address] Norma Avitia DO Allergic rhinitis due to other allergic trigger, unspecified seasonality 09/10/2025 Refill [facility] [address] [place] [address] Evi Thomson MD Pure hypercholesterolemia 08/22/2025 Patient Outreach [facility] [address] [place] [address] Evi Thomson MD Medicare Annual Wellness Visit Initial (Annual wellness visit unscheduled) 08/17/2025 10:30 AM EDT Office Visit [facility] [address] [place] [phone] Evi Thomson MD Major depressive disorder in remission, unspecified whether recurrent (CMS/HCC) (Primary Dx); PTSD (post-traumatic stress disorder); Lateral epicondylitis of left elbow; Benign hypertension; Encounter for immunization 08/17/2025 Travel 08/16/2025 Telephone [facility] [address] [place] [phone] Evi Thomson MD Chart Prep 08/14/2025 Refill [facility] 230 [place] [address] Margarita Reyes MD 08/09/2025 Patient Outreach [facility] [address] [place] [address] Evi Thomson MD Pre-visit Planning ([facility] screening completed on 06/13/2025) 07/13/2025 Refill [facility] [address] [place] [address] Norma Avitia DO Allergic rhinitis due to other allergic trigger, unspecified seasonality 07/09/2025 Refill [facility] 230 [place], [place] [phone] Evi Thomson MD from Last 3 Months Immunizations Immunization Administration Dates Next Due Influenza High-dose Quadriva lent Preservative Free 10/06/2022,10/01/2020 Influenza Injectable Quadriv alant Preservative Free IIV4 MDCK 10/28/2021 Influenza injectable quadriv alent preservative free 08/24/2019 Influenza, High Dose Seasona l, Preservative Free 08/17/2025 Moderna Covid-19 Vaccine 12+ 10/17/2021,03/20/20,02/20/2021 Pfizer Covid-19 [...] Procedure Name Priority Date/Time Associated Diagnosis Comments BASIC METABOLIC PANEL Routine 09/19/2025 8:06 AM EST LIPID PANEL, STANDARD Routine 12/25/2024 10:29 AM EST Prediabetes Primary hypertension POCT GLYCATED HEMOGLOBIN, TOTAL Routine 12/25/2024 10:18 AM EST Prediabetes from Last 3 Months or Most Recently Relevant to Health Maintenance Results * (ABNORMAL) Basic Metabolic Panel (09/19/2025 8:06 AM EST) Sodium 138 135 - 145 mmol/L [facility] Potassium 4.8 3.3 - 5.1 mmol/L [facility] Chloride 107 96 - 108 mmol/L [facility] Carbon Dioxide 26 22 - 29 mmol/L [facility] Anion Gap 10(L) 12 - 20 [facility] Urea Nitrogen (BUN) 29(H) 9 - 16 mg/dL [facility] Creatinine, Serum 1.22 0.5 - 1.4 mg/dL [facility] Estimated Glomerular Filt Rate 42 [facility] Comment:Chronic Kidney Disea se: Estimated GFR < 60 mL/min/1.69d1Rqugif Kidney Disease: Estimated GFR < 15 mL/min/1.73m2 Glucose 102 60 - 115 mg/dL [facility] Calcium 9.5 8.4 - 10.2 mg/dL [facility] 09/19/2025 8:06 AM EST 09/19/2025 8:06 AM EST us Generic External Data Provider LAB BLOOD ORDERAB LES Final Result [facility] [address] [place] [phone] * (ABNORMAL) Lipid Panel, Standard (12/25/2024 10:29 AM EST) Triglycerides 322(H) <150 mg/dL [facility] Comment:Slight Lipemia.Amber able Triglyceride: less than 150 mg/dLBorderline High Triglyceride 150-199 mg/dLHigh Triglyceride: 200-499 mg/dLVery High Triglyceride: greater than or equal to 5OO mg/dL Cholesterol 123 <200 mg/dL [facility] Comment:Desirable Cholestero l: less than 200 mg/dLBorderline High Cholesterol: 200-239 mg/dLHigh Cholesterol: greater than 239 mg/dL LDL Cholesterol Calculated 27 <100 mg/dL [facility] Comment:Desirable LDL: less than 100 mg/dLNear Optimal/Above Optimal LDL: 110- 129 mg/dLBorderline High LDL: 130-159 mg/dLHigh LDL: 160-189 mg/dLVery High LDL: greater than or equal to 190 mg/dL HDL Cholesterol 32(L) >40 mg/dL [facility] Comment:Desirable HDL: great er than 40 mg/dL Note: This HDL assay may give artificially low results in patients with liver disease. Blood Venous blood specimen / Unknown 12/25/2024 10:29 AM EST 12/25/2024 1:59 PM EST Duyen Schwab MD LAB BLOOD ORDERABLES Final Resul t Performing Organization Address City/State/[facility] Co de Phone Number [facility] [address] [place] [phone] * (ABNORMAL) POCT A1C (12/25/2024 10:18 AM EST) Hemoglobin A1C 5.8 4.0 - 6.0 % QC Media Lot # Comment:[id number] Lot# Expiration Date Comment:09/01/2026 Blood 12/25/2024 10:1 8 AM EST Duyen Schwab MD POINT OF CARE TEST ENTER/EDIT OR DERABLES Final Result from Last 3 Months or Most Recently Relevant to Health Maintenance Insurance [facility] [place] [address] [place] [address] JEFFERY Malone75 Care Teams Chairman & Ceo Relationship Specialty Start Date End Date Evi Thomson MD 230 [place] [address] PCP - General Family Medicine 03/13/19 Valerio Sweet, NickiD [address] [place] [address] Pharmacist Internal Medicine 11/02/22 [facility] SPENCERA 05/17/25
[2025-09-28 09:00] VITALS: BP 130/70
[2025-09-28 09:01] VITALS: PULSE 71; O2SAT 97
== END 2025-09-28 09:28 | disposition home or self-care (01) ==
LOC: HO.ENCR 08:39
PROVIDERS: PCP Internal Medicine; Visit Provider Internal Medicine Endocrinology, Diabetes & Metabolism
DX: M81.0 Age-related osteoporosis without current pathological fracture (principal)

== ENCOUNTER → 2025-09-28 08:39 | Outpatient (BNVA) | payer MEDICARE, MEDICAID, SELFPAY | PROVIDERS: PCP Internal Medicine; Visit Provider Internal Medicine Endocrinology, Diabetes & Metabolism | DX: M81.0 Age-related osteoporosis without current pathological fracture (principal); Z79.620 Long term (current) use of immunosuppressive biologic | CPT/HCPCS: 96372; J0897 ==

== ENCOUNTER 2025-10-29 11:33 | Outpatient (REF) | payer MEDICARE, MEDICAID, SELFPAY ==
--- NOTE | ~2025-10-29 | XR_ITS ---
EXAMINATION: XR CHEST CLINICAL INFORMATION: chest / back pain on the right side. ? pneumonia COMPARISON: July 19, 2023 TECHNIQUE: PA and lateral views. FINDINGS: Hyperinflated lungs. Pulmonary reticular pattern. No consolidation, pleural effusion or pneumothorax. Cardiomediastinal silhouette size is normal. Multilevel thoracic spondylosis. No acute cortical disruption or gross malalignment in the included thoracic spine.. Degenerative changes in the shoulders. XR/XR chest 2V IMPRESSION: Chronic interstitial lung disease without acute airspace disease. Multilevel spondylosis, thoracic spine. Electronically signed by: Salvatore Sanchez MD 10/29/2025 12:55 PM EST
== END 2025-10-29 11:34 | disposition home or self-care (01) ==
LOC: HO.HHCX 11:33
PROVIDERS: PCP Internal Medicine; Visit Provider Nurse Practitioner Family
DX: R07.89 Other chest pain (principal)
CPT/HCPCS: 71046

== ENCOUNTER → 2025-10-29 12:01 | Outpatient (BNV) | payer MEDICARE, MEDICAID, SELFPAY | PROVIDERS: PCP Internal Medicine; Visit Provider Radiology Diagnostic Radiology | DX: J84.9 Interstitial pulmonary disease, unspecified (principal); M47.814 Spondylosis without myelopathy or radiculopathy, thoracic region | CPT/HCPCS: 71046 ==

== ENCOUNTER 2025-10-30 11:25 | Emergency (ER) | payer MEDICARE, MEDICAID, SELFPAY ==
--- OUTSIDE RECORDS SUMMARY | 2025-10-29 10:30 | XMS_ITS | Encounter Summary ---
Author Organization [employer] Address [address] [place] [address] Care Team Providers Care Signal Operator Technical Name Role Phone Evi Thomson MD Primary Care Provider + Valerio Sweet PharmD Unavailable Encounter Details Date Type Department Care Team (Latest Contact Info) Description 10/29/2025 10:30 AM EST Office Visit [facility] [address], [place] [phone] Ada Allison FNP [address] [place], [place] [phone] Upper respiratory tract infection, unspecified type (Primary Dx); Sore throat (viral); Myalgia; Other chest pain; Shortness of breath; Acute bacterial conjunctivitis of both eyes Social History Tobacco Use Types Packs/Day Years [...] Orientation Straight 09/14/2022 10 :16 AM EDT Travel History Travel Start Travel End [facility] 09/28/2025 10/16/2025 documented as of this encounter Last Filed Vital Signs Vital Sign Reading Time Taken Comments Blood Pressure 138/66 10/29/2025 10:21 AM EST Pulse 88 10/29/2025 10:21 AM EST Temperature 36.7 C (98 F) 10/29/2025 10:21 AM EST Respiratory Rate 20 10/29/2025 10:21 AM EST Oxygen Saturation 94% 10/29/2025 10:21 AM EST Inhaled Oxygen Concentration - - Weight 70.1 kg (154 lb 8 oz) 10/29/2025 10:21 AM EST Height 149.9 cm (4' 11 ) 10/29/2025 10:21 AM EST Body Mass Index 31.21 10/29/2025 10:21 AM EST documented in this encounter Progress Notes * ALLI Mendoza - 10/29/2025 10:30 AM EST Linda Nolen is a 84 y.o. female who presents for a acute visit in company of daughter. Reports acute Respiratory Illness with Conjunctivitis. - Onset of symptoms on prior to visit (October 25, 2025) - Initial symptoms: chest pain, shortness of breath, accumulation of phlegm - Nasal symptoms: runny nose, nasal congestion - Eye symptoms: eye pain, itching, morning discharge with eyes totally covered, described as pink eye - Ear symptoms: buzzing noise - Head symptoms: sensation of head blowing up, denies headache - General symptoms: chills, weakness, fatigue, decreased appetite - Cough: frequent, productive with phlegm, chest pain worsens with coughing - Denies fever and sore throat - Sick contact with daughter prior to onset - No history of asthma - History of kidney problems - No history of heart disease reported, but chest pain present Problem List[1] Allergies[2] Review of Systems Constitutional: Positive for chills. Negative for fever. HENT: Positive for congestion, postnasal drip and tinnitus. Negative for sore throat. Eyes: Positive for pain, discharge and redness. Negative for photophobia. Respiratory: Positive for cough. Negative for chest tightness, shortness of breath and wheezing. Cardiovascular: Positive for chest pain. Negative for palpitations and leg swelling. Gastrointestinal: Negative for nausea and vomiting. Psychiatric/Behavioral: Negative for suicidal ideas. Vitals: 10/29/25 1021 BP: 138/66 BP Location: Left arm Patient Position: Sitting BP Cuff Size: Adult Pulse: 88 Resp: 20 Temp: 98 ??F (36.7 ??C) TempSrc: Oral SpO2: 94% Weight: 154 lb 8 oz (70.1 kg) Height: 4' 11 (1.499 m) Results - COVID test: negative - Influenza A & B test: negative - Rapid Strep A negative - Chest Xray FINDINGS: Hyperinflated lungs. Pulmonary reticular pattern. No consolidation, pleural effusion or pneumothorax. Cardiomediastinal silhouette size is normal. Multilevel thoracic spondylosis. No acute cortical disruption or gross malalignment in the included thoracic spine.. Degenerative changes in the shoulders. IMPRESSION: Chronic interstitial lung disease without acute airspace disease. Multilevel spondylosis, thoracic spine. Physical Exam Vitals reviewed. Constitutional: Appearance: Normal appearance. She is ill-appearing. HENT: Head: Atraumatic. Right Ear: Tympanic membrane, ear canal and external ear normal. Left Ear: Tympanic membrane, ear canal and external ear normal. Nose: Congestion and rhinorrhea present. Mouth/Throat: Pharynx: Posterior oropharyngeal erythema present. Eyes: General: Right eye: Discharge present. Left eye: Discharge present. Cardiovascular: Rate and Rhythm: Normal rate and regular rhythm. Pulses: Normal pulses. Heart sounds: Normal heart sounds. No murmur heard. Pulmonary: Effort: Pulmonary effort is normal. No respiratory distress. Breath sounds: Rhonchi present. No wheezing. Chest: Chest wall: Tenderness present. Neurological: Mental Status: She is alert and oriented to person, place, and time. Psychiatric: Mood and Affect: Mood normal. Behavior: Behavior normal. Problem List Items Addressed This Visit Upper respiratory tract infection, unspecified type Sore throat (viral) Influenza A & B , Rapid Strep A and Rapid Covid-19 screening ordered - COVID test: negative - Influenza A & B test, Covid and Rapid Strep A negative - Upper respiratory infection suspected, with negative COVID and influenza tests. Significant congestion, cough, dyspnea, and phlegm production. - Prescribed albuterol inhaler (2 puffs every 4-6 hours as needed), Flonase nasal spray, acetaminophen 651 mg three times daily for 3-5 days. Ordered clinic administered nebulizer treatment. Patient reports breathing more comfortable Recommended increased fluid intake, rest, and supportive care. - Ordered urgent chest X-ray. Rhonchi lung sound questioning pneumonia vs acute bronchitis considering patient's localized right-sided chest and back pain, rhonchi, productive cough, chills, and borderline hypoxemia - Further treatment will be initiated if xray confirms PNA - Patient advised to return or go to ER if SOB worsens Relevant Medications acetaminophen (Tylenol 8 Hour) 650 MG ER tablet Relevant Orders POCT Rapid Covid-19 BinaxNOW (Completed) POCT Rapid Influenza A HUGGINS ID NOW (Completed) POCT Rapid Influenza B HUGGINS ID NOW (Completed) POCT Rapid Strep A HUGGINS ID NOW (Completed) Other chest pain - Chest pain present, localized to the right side of chest and back. Worsen with cough and breathing. - Ordered chest X-ray to evaluate for pneumonia or other causes. - Further intervention will be based on findings. - Chest x ray findings FINDINGS: Hyperinflated lungs. Pulmonary reticular pattern. No consolidation, pleural effusion or pneumothorax. Cardiomediastinal silhouette size is normal. IMPRESSION: Chronic interstitial lung disease without acute airspace disease. Multilevel spondylosis, thoracic spine. - Discussed result with daughter, to follow up with PCP Relevant Orders XR Chest 2 Views Shortness of breath - Administer nebulizer in clinic. Patient report more comfortable with breathing - Order albuterol inhaler and patient to resume back on Flonase. Reports having unexpired new Flonase at home Patient advised to return to clinic or go to ER if SOB worsens Relevant Medications albuterol 108 (90 Base) MCG/ACT inhaler albuterol (2.5 MG/3ML) 0.083% nebulizer solution 3 mL (Completed) Acute bacterial conjunctivitis of both eyes - Diagnosis of pink eye (conjunctivitis) confirmed by clinical findings. - Patient reports purulent discharge and matted eyelids in the mornings - Prescribed antibiotic eye drops. Advised strict hand hygiene and avoidance of touching eyes to prevent spread. Relevant Medication trimethoprim-polymyxin b (Polytrim) ophthalmic solution Current Medications[3] No follow-ups on file. Visit Conducted in: Bangladeshi Translation by: Daughter. Patient declined interpreter for the deaf [1] Patient Active Problem List Diagnosis Abnormal foot pulse Adjustment insomnia Allergic rhinitis Patellofemoral arthritis of left knee Hypertension Bilateral tinnitus Chronic gastritis CKD (chronic kidney disease), stage IV (CMS/HCC) (HCC) Decreased hearing Esophagitis determined by biopsy Epigastric pain Erosive esophagitis Hyperglycemia Multinodular goiter Neuropathy Effusion, left knee Right leg pain Paresthesia of foot High cholesterol Spinal stenosis of lumbar region Subclinical hyperthyroidism Goiter Peripheral nerve disease Disorder of peripheral nerve of right lower extremity Abnormal LFTs At risk for falls Greater trochanteric bursitis of right hip Prediabetes Grief at loss of child Hyponatremia Shingles Hypoglycemia Neurogenic claudication due to lumbar spinal stenosis Abdominal pain Osteoporosis Tear of medial meniscus of left knee Vitamin D deficiency Lumbar facet arthropathy Hyperparathyroidism (CMS/HCC) Restless leg syndrome Varicose veins of both lower extremities with pain Lumbosacral radiculopathy Decreased attention Span Current moderate episode of major depressive disorder without prior episode (CMS/HCC) (HCC) Edema of both ankles PTSD (post-traumatic stress disorder) Lateral epicondylitis of left elbow Major depressive disorder in remission (CMS/HCC) [2] No Known Allergies [3] Current Outpatient Medications: acetaminophen (Tylenol 8 Hour) 650 MG ER tablet, TAKE 1-2 TABLETS BY MOUTH EVERY 8-12 HOURS NEEDED. SWALLOW WHOLE WITH WATER (MAX 3600MG/D). DO NOT BREAK, CRUSH, DISSOLVE AND/OR CHEW., Disp: 120 tablet, Rfl: 6 albuterol 108 (90 Base) MCG/ACT inhaler, Inhale 2 puffs every 6 (six) hours if needed for wheezing., Disp: 18 g, Rfl: 11 amLODIPine (Norvasc) 5 MG tablet, TOME 1 TABLETA POR VIA ORAL TODOS [place] JOSEPH, Disp: 90 tablet, Rfl:3 atorvastatin (Lipitor) 20 MG tablet, TAKE 1 TABLET BY MOUTH EVERY MORNING, Disp: 90 tablet, Rfl: 2 Blood Pressure Monitoring (Omron 3 Series BP Monitor) device, USE DAILY DIRECTED, Disp: , Rfl: D3-1000 25 MCG (1000 UT) capsule, TOME 1 C PSULA (25 MCG) ORALLY DAILY FOR 30 DAYS, Disp: , Rfl: Diclofenac Sodium 1 % gel, APPLY 2 GRAMS TOPICALLY IN THE MORNING, AT NOON AND AT BEDTIME NEEDEDFOR PAIN, Disp: 100 g, Rfl: 0 Elastic Bandages & Supports (B & B Knee Brace/Supports) [facility] , Disp: , Rfl: fluticasone (Flonase) 50 MCG/ACT nasal spray, SPRAY 1 SPRAY INTO EACH NOSTRIL ONCE PER DAY., Disp: 48 mL, Rfl: 0 gabapentin (Neurontin) 100 MG capsule, Take 1 capsule (100 mg) by mouth at bedtime., Disp: 30 capsule, Rfl: 11 glucose blood test strip, Use as instructed, Disp: 100 each, Rfl: 12 lidocaine (Lidoderm) 5 % patch, Apply 1 patch topically Once per day. Remove & discard patch within 12 hours or as directed by MD., Disp: 30 patch, Rfl: 1 methIMAzole (Tapazole) 5 MG tablet, Take 0.5 tablets by mouth 1 (one) time each day., Disp: , Rfl: mirtazapine (Remeron) 15 MG tablet, Take 0.5 tablets (7.5 mg) by mouth if needed in the morning andat bedtime (Anxiety, hold for sedation)., Disp: 15 tablet, Rfl: 2 Prolia 60 MG/ML solution prefilled syringe, Inject 60mg subcutaneously every 6 months as directed, Disp: , Rfl: rOPINIRole (Requip) 1 MG tablet, Take 1 tablet by mouth 2 times daily., Disp: , Rfl: trimethoprim-polymyxin b (Polytrim) ophthalmic solution, Administer 1 drop into affected eye(s) 4 times daily for 10 days., Disp: 10 mL, Rfl: 0 No current facility-administered medications for this visit. documented in this encounter Plan of Treatment Upcoming Encounters Date Type Department Care Team (Late st Contact Info) Description 11/26/2025 9:15 AM EST Office Visit [facility] [address] [place], [place] [phone] Evi Thomson MD [address] [place], [place] [phone] documented as of this encounter Goals Goal Patient Goal Type Associated Problems Recent Progress Patient-Stated? Author Blood Pressure < 140/90 Blood Pressure 138/66( 025 10:21 AM EST) No Valerio Sweet, NickiD documented as of this encounter Procedures Procedure Name Priority Date/Time Associated Diagnosis Comments XR CHEST 2 VIEWS Routine 10/29/2025 12:3 0 PM EST Other chest pain POCT INFLUENZA B (ID NOW RAPID MOLECULAR) Routine 10/29/2025 10:31 AM EST Sore throat (viral) POCT INFLUENZA A (ID NOW RAPID MOLECULAR) Routine 10/29/2025 10:25 AM EST Sore throat (viral) POC HUGGINS ID NOW STREP A Routine 10/29/2025 10:25 AM EST Sore throat (viral) POCT RAPID COVID ANTIGEN Routine 10/29/2025 10:25 AM EST Sore throat (viral) documented in this encounter Results * XR Chest 2 Views (10/29/2025 12:30 PM EST) Anatomical Region Laterality Modality Chest Radiographic Camille ging 10/29/2025 12:3 0 PM EST Narrative 10/29/2025 12:58 PM EST [facility] [address] [place] [address] XRay Report Signed Patient: Linda Carranza MR# : [id number] : 1940 Acct:[id number] Age/Sex: 84 / F ADM Date: 10/29/25 Loc: [facility]AL[facility] Attending Dr: Ada CARSON Ordering Physician: Ada Allison Date of Service: 10/29/25 Procedure(s): XR chest 2V Accession Number(s): [id number] cc: Linda Vargas MD; Ada Allison Reason for Exam: chest / back pain on the right side. ? pneumonia EXAMINATION: XR CHEST CLINICAL INFORMATION: chest / back pain on the right side. ? pneumonia COMPARISON: July 19, 2023 TECHNIQUE: PA and lateral views. FINDINGS: Hyperinflated lungs. Pulmonary reticular pattern. No consolidation, pleural effusion or pneumothorax. Cardiomediastinal silhouette size is normal. Multilevel thoracic spondylosis. No acute cortical disruption or gross malalignment in the included thoracic spine.. Degenerative changes in the shoulders. XR/XR chest 2V IMPRESSION: Chronic interstitial lung disease without acute airspace disease. Multilevel spondylosis, thoracic spine. Electronically signed by: Salvatore Sanchez MD 10/29/2025 12:55 PM EST Dictated By: Salvatore Lopez MD Signed By: <Electronically signed by Salvatore Chavez MD in OV> 10/29/25 1255 DD/ 1230 TD/TT: 10/29/25 1232 News Commentator: Procedure Note Donotuseinterpreter, Image - 10/29/[address] [address] XRay Report Signed Patient: Linda CarranzaMR# : [id number] : 1940cct:[id number] Age/Sex: 84 / FADM Date: 10/29/25 Loc: SHANNANCX Attending Dr: Ada CARSON Ordering Physician: Okhipo,Ada PRODUCTION EXPEDITER Date of Service: 10/29/25 Procedure(s): XR chest 2V Accession Number(s): [id number] cc: Linda Vargas MD; Ada Allison Reason for Exam: chest / back pain on the right side. ? pneumonia EXAMINATION: XR CHEST CLINICAL INFORMATION: chest / back pain on the right side. ? pneumonia COMPARISON: July 19, 2023 TECHNIQUE: PA and lateral views. FINDINGS: Hyperinflated lungs. Pulmonary reticular pattern. No consolidation, pleural effusion or pneumothorax. Cardiomediastinal silhouette size is normal. Multilevel thoracic spondylosis. No acute cortical disruption or gross malalignment in the included thoracic spine.. Degenerative changes in the shoulders. XR/XR chest 2V IMPRESSION: Chronic interstitial lung disease without acute airspace disease. Multilevel spondylosis, thoracic spine. Electronically signed by: Salvatore Sanchez MD 10/29/2025 12:55 PM EST RP Dictated By: Salvatore Lopez MD Signed By: <Electronically signed by Salvatore Chavez MDin OV> 10/29/25 1255 DD/ 1230 TD/TT: 10/29/25 1232 News Commentator: Ada CARSON IMG XR PROCEDURES Final Result * POCT Rapid Influenza B HUGGINS ID NOW (10/29/2025 10:31 AM EST) Influenza B Negative Negative, Indeterminate [facility] QC Media Lot # [id number] [facility] Lot# Expiration Date [facility] Swab 10/29/2025 10:3 1 AM EST Ada CARSON POINT OF CARE TEST ENTER/EDIT ORDERABLES Final Result [facility] [address] [place] [phone] * POCT Rapid Strep A HUGGINS ID NOW (10/29/2025 10:25 AM EST) [facility] Rapid Strep A Screen Negative Negative, None Detected QC Media Lot # [id number] Lot# Expiration Date ,026 Swab 10/29/2025 10:2 5 AM EST Ada Okhipo PRODUCTION EXPEDITER POINT OF CARE TEST ENTER/EDIT ORDERABLES Final Result * POCT Rapid Influenza A HUGGINS ID NOW (10/29/2025 10:25 AM EST) [facility] Influenza A Negative Negative, Indeterminate [facility] QC Media Lot # [id number] [facility] Lot# Expiration Date ,026 [facility] Swab 10/29/2025 10:2 5 AM EST Ada Okhipo PRODUCTION EXPEDITER POINT OF CARE TEST ENTER/EDIT ORDERABLES Final Result Performing Organization Address City/[facility]/ZIP Co de Phone Number [facility] [address] [place] [phone] * POCT Rapid Covid-19 BinaxNOW (10/29/2025 10:25 AM EST) [facility] Rapid COVID Ag Negative [facility] QC Media Lot # [id number] [facility] Lot# Expiration Date [id number] [facility] Swab 10/29/2025 10:2 5 AM EST Ada Okhipo PRODUCTION EXPEDITER POINT OF CARE TEST ENTER/EDIT ORDERABLES Final Result Performing Organization Address [facility] Co de Phone Number [facility] [address] [place] [phone] documented in this encounter Visit Diagnoses Diagnosis Upper respiratory tract infection, unspecified type- Primary Sore throat (viral) Acute pharyngitis Myalgia Unspecified myalgia and myositis Other chest pain Shortness of breath Acute bacterial conjunctivitis of both eyes documented in this encounter Administered Medications Inactive Administered Medications - up to 3 most recent administrations Medication Order MAR Action Action Date Dose Rate Site albuterol (2.5 MG/3ML) 0.083% nebulizer solution 3 mL 3 mL, Nebulization, Once, On 10/29/25 at 1200, For 1 doseIndications:Shortness of breath Given 10/29/2025 12:00 PM EST 3 mL documented in this encounter Additional Health Concerns Assessment Noted Time PHQ-9 Depression Total Score: 5 07/04/20 8:47 AM EDT documented as of this encounter Care Teams Signal Operator Technical Relationship Specialty Start Date End Date Evi Thomson MD [address] [place] [phone] PCP - General Family Medicine 03/13/19 Valerio Sweet, Karl [address] [place] [address] Pharmacist Internal Medicine 11/02/22 Olimpia JOSUE 05/17/25 documented as of this encounter
[2025-10-30] VITALS (7 sets, daily range): BP systolic 124–138; BP diastolic 52–59; PULSE 69–107; RESP 18–32; TEMP 36.6; O2SAT 95–100; BMI 29.7
--- NOTE | ~2025-10-30 | CT_ITS ---
EXAMINATION: CT HEAD WITHOUT CONTRAST CLINICAL INFORMATION: Severe headaches and dizziness. 84-year-old female. COMPARISON: 07/19/2023. MRI brain 11/26/2024. TECHNIQUE: Contiguous axial imaging was performed from the skull base to vertex without intravenous administration of contrast. This CT examination was performed using dose optimization techniques as appropriate, variously including the following: *Automated exposure control *Adjustment of mA and/or kV according to patient size (this includes techniques or standardized protocols for targeted exams where dose is matched to indication/reason for exam; i.e. extremities or head) *Use of iterative reconstruction technique FINDINGS: There is no evidence of intracranial hemorrhage or extra-axial fluid collection. There is no mass effect, or edema. No CT evidence of acute territorial infarct. Ventricles, sulci, and cisterns are normal in size and configuration for patient age. No hydrocephalus. No midline shift. Negative hyperdense MCA sign. Negative insular ribbon sign. Patchy periventricular and deep white matter hypoattenuation is consistent with mild small vessel ischemic changes. Normal pituitary. Mild atheromatous calcification of the bilateral carotid siphons and V4 segments vertebral arteries bilaterally. Globes and orbital contents image normally. There are bilateral lens replacements. No extracranial soft tissue abnormalities. Near-complete opacification of the right maxillary sinus is present, with a dependent calcification present, likely indicating chronicity. Only a tiny amount of the antrum is aerated. There is mild mucosal thickening seen in the left maxillary sinus and throughout the ethmoid air cells. No suspicious bony abnormalities. There are no acute fractures evident. There are degenerative changes in both TM joints. CT/CT head/brain wo IV con IMPRESSION: 1. No acute intracranial abnormality. 2. Paranasal sinus disease, most significant in the right maxillary sinus where there is near complete opacification. This is likely acute. Electronically signed by: Blue Suero MD 10/30/2025 02:45 PM [facility]
--- NOTE | ~2025-10-30 | CT_ITS ---
EXAMINATION: CT ANGIOGRAM CHEST CLINICAL INFORMATION: Chest pain, cough, increased slightly. COMPARISON: Chest x-ray dated earlier same day. No prior chest CT. TECHNIQUE: Multiple axial images were obtained through the chest after the administration of 50 mL of Omnipaque 350 intravenous contrast. Extensive vascular post-processing including two-dimensional and three-dimensional reformatted images were created and reviewed on an independent workstation. This CT examination was performed using dose optimization techniques as appropriate, variously including the following: *Automated exposure control *Adjustment of mA and/or kV according to patient size (this includes techniques or standardized protocols for targeted exams where dose is matched to indication/reason for exam; i.e. extremities or head) *Use of iterative reconstruction technique FINDINGS: VASCULAR: There is adequate opacification of the pulmonary arteries with contrast. There is limitation due to respiratory motion degradation, particularly in the lower lungs. This significantly limits the sensitivity of the study. No definite pulmonary arterial filling defect is identified within these confines. Cannot exclude subsegmental embolic disease in the lower lobe distribution due to motion. Main pulmonary artery/pulmonary trunk is mildly prominent, although not pathologically enlarged. There is no right heart strain pattern. There is some reflux of contrast into the hepatic veins, suggesting possible right heart failure. The aorta is normal in caliber and contour without evidence of acute aortic syndrome or aneurysm. There is a 2 vessel branching pattern. The heart is mildly enlarged. There is calcification of the mitral annulus. There is no pericardial effusion of significance. LUNGS: Within the confines of respiratory motion artifact, there is mild dependent subpleural atelectasis in the bilateral lower lobes. There is no segmental consolidation or definitive pneumonia identified. There is no interstitial abnormality. There is mild thickening of the small airways suggesting bronchitis, either acute or chronic. The central airways are patent. There is no pleural effusion or pneumothorax. No pulmonary nodule or mass within the confines of motion. PLEURA: There is no pleural effusion. No pleural mass or thickening. MEDIASTINUM: There is severe enlargement of the thyroid, which extends caudally to the sternal notch. There are multiple nodules and calcifications contained within. There is no mediastinal mass or abnormal lymphadenopathy present. The esophagus is nondilated. The central airways are patent. Partial expiratory appearance. AXILLA/CHEST WALL: No lymphadenopathy or mass. UPPER ABDOMEN: Contrast reflux into the hepatic veins, suggesting possible increased right heart pressures. There is mild hyperplasia of the left adrenal. Otherwise, imaged upper abdominal contents appear normal. OSSEOUS STRUCTURES: No suspicious lytic or blastic bone lesion present. There are mild to moderate degenerative changes throughout the spine. CT/CT angio chest PE protocol IMPRESSION: 1. Respiratory motion degraded examination. Within these confines, there is no central or segmental pulmonary embolus. Cannot exclude subsegmental emboli in the lower lobe distributions due to motion. 2. Within the confines of respiratory motion, the lungs appear clear. There is diffuse thickening of the small airways suggesting bronchitis/inflammatory airways disease. 3. There is mild cardiac enlargement. 4. Multinodular goiter. 5. Additional ancillary findings as discussed in the body of the report. Electronically signed by: Blue Suero MD 10/30/2025 03:03 PM [facility]
--- NOTE | ~2025-10-30 | XR_ITS ---
EXAMINATION: XR CHEST CLINICAL INFORMATION: chest pain COMPARISON: 10/29/2025. TECHNIQUE: Frontal view of the chest was obtained. FINDINGS: Mildly eventrated right hemidiaphragm, unchanged. The cardiac, hilar, and mediastinal contours are normal. The lungs are clear bilaterally. No pneumothorax or effusion. No focal osseous or soft tissue abnormality. There are degenerative changes throughout the spine. XR/XR chest 1V IMPRESSION: No active pulmonary disease. Electronically signed by: Blue Suero MD 10/30/2025 12:18 PM [facility]
--- NOTE | 2025-10-30 11:29 | ECG_ITS ---
Test Reason : sob / chest pain Blood Pressure : */* mmHG Vent. Rate : 77 BPM Atrial Rate : 77 BPM P-R Int : 176 ms QRS Dur : 76 ms QT Int : 392 ms P-R-T Axes : 45 51 52 degrees QTcB Int : 443 ms Normal sinus rhythm Normal ECG When compared with ECG of 19-Jul-2023 10:44, No significant change was found Referred By: Ashley Cevallos Electronically Signed By: Patrick Andersen
[2025-10-30 12:03] LABS: MANUAL DIFF FLAG NO
[2025-10-30 12:07] LABS: Hematocrit 37.7 % (37.0-47.0); Hemoglobin 11.9 g/dl (12.0-16.0); Imm Gran Abs Auto 0.02 X10*3/uL (0.00-0.03); Imm Gran Pct Auto 0.3 % (0.0-0.4); Lymphocytes Absolute Auto 1.6 X10*3/uL (1.2-4.9); Mean Corpuscular HGB Conc 31.6 g/dl (31.0-35.0); Mean Corpuscular Hemoglobin 26.2 pg (27.0-33.0); Mean Corpuscular Volume 83.0 fL (80.0-98.0); NRBC Abs Auto 0.000 X10*3/uL (0.0-0.012); NRBC Pct Auto 0.0 /100WBC (0.0-0.2); Platelet Count 184 X10*3/uL (160-400); Red Blood Count 4.54 X10*6/uL (4.20-5.50); White Blood Count 7.8 X10*3/uL (4.8-10.8)
--- NOTE | 2025-10-30 12:21 | ED.CHESTPAIN ---
HPI - Chest Pain General Chief Complaint: Upper Respiratory Symptoms Stated Complaint: chest pain, headache Time Seen by Provider: 10/30/25 12:52 Source: patient, family (daughter) and buying intern (south su[place]ese) Mode of arrival: ambulatory Limitations: language barrier (south su[place]ese) History of Present Illness ED Provider: AYDE LUND PA-C HPI narrative: 84-year-old female with pmhx significant for arthritis, osteoporosis, HTN, HLD, hyperparathyroidism presents to the ED today for evaluation of cough x1 week. Patient reports flying to [place] approximately 1 month ago. and returned 4 days ago. Reports cough productive of yellow sputum over the last week. Reports associated chest pain radiating to her back, generalized weakness, head pressure, dizziness, bilateral ear pain, sore throat, chills. Denies hemoptysis, fevers, vision changes, neck pain, LE pain/swelling. Denies any known lung conditions. She is not dependent on O2 at home. Related Data Home Medications ?Medication ?Instructions ?Recorded ?Confirmed atorvastatin 20 mg tablet 20 mg PO DAILY 08/29/20 08/15/25 benazepril 10 mg tablet 10 mg PO DAILY 02/03/23 08/15/25 Held on 04/30/25. Instructions: Resume on 05/09/25. hold lisinopril until repeat bmp ,start if bp allows. amlodipine 5 mg tablet 5 mg PO DAILY 07/19/23 08/15/25 denosumab 60 mg/mL subcutaneous 60 mg subcut [id number] 08/18/24 08/15/25 syringe (Prolia) fluticasone propionate 50 1 spray intranasal DAILY 04/27/25 08/15/25 mcg/actuation nasal spray,suspension gabapentin 300 mg capsule 300 mg PO BEDTIME 08/15/25 08/15/25 Previous Rx's ?Medication ?Instructions ?Recorded acetaminophen 325 mg tablet 975 mg (3 x 325 mg) PO Q6H PRN 04/30/25 pain #1 tab ropinirole 2 mg tablet 1 mg (1/2 x 2 mg) PO BID #30 tabs 06/20/25 gabapentin 100 mg capsule 100 mg PO BID PRN restless legs 08/15/25 #60 caps methimazole 5 mg tablet 2.5 mg (1/2 x 5 mg) PO DAILY #45 08/20/25 tabs cholecalciferol (vitamin D3) 25 25 mcg PO DAILY #90 caps 10/15/25 mcg (1,000 unit) capsule (Vitamin D3) amoxicillin 875 mg-potassium 1 tab PO Q12H 7 days #14 tabs 10/30/25 clavulanate 125 mg tablet azithromycin 250 mg tablet See Rx Instructions PO .COMPLEX #6 10/30/25 tabs prednisone 20 mg tablet 40 mg (2 x 20 mg) PO DAILY 5 days 10/30/25 #10 tabs Allergies Allergy/AdvReac Type Severity Reaction Status Date / Time No Known Allergies Allergy Verified 10/30/25 12:25 Review of Systems Review of Systems: Yes all other systems are reviewed and are negative [facility] Past Medical History Attestation statement: The following information was validated with the patient. Source: old records reviewed and nursing notes reviewed Medical History Obstructive sleep apnea hypopnea, mild Restless legs syndrome (RLS) Hypersomnia Snoring Acute hyponatremia Osteoporosis Hypertensive emergency On beta april at home Vitamin D deficiency Goiter Hyperparathyroidism Subclinical hyperthyroidism Effusion, left knee Renal impairment High cholesterol Hypertension Left knee pain Surgical History H/O colonoscopy History of esophagogastroduodenoscopy (EGD) Hx of cataract extraction Hx of hysterectomy Family History Family History Father No problems noted. Mother No problems noted. Social History Social History Household Members: None Household Members Other:: lives with her daughter Housing: House Do you presently have visiting nurse or other home services: No Alcohol intake: never Patient Tobacco Use Status: Never used Tobacco Smoked in Last 30 Days: No e-Cigarette/Vaping Use: Never Used Second Hand Smoke Exposure: No Advance Directives: Yes Advance Directives on File: Yes Advance Directives Date on File: 07/26/23 service: No Current occupational status: unemployed Physical Exam Vital Signs: Vital Signs: Last Vital Signs Temp 97.9 F 10/30/25 16:56 Pulse 107 H 10/30/25 16:56 Resp 18 10/30/25 16:56 BP 138/54 L 10/30/25 16:56 Pulse Ox 95 10/30/25 16:56 O2 Del Method Room Air 10/30/25 16:56 BMI result Body Mass Index 29.7 tachypneic, vitals are otherwise wnl General: thin, ill appearing female, in NAD Skin: Warm, dry, intact. No rashes or lesions. Head: Normocephalic, atraumatic. EENT: Hearing is intact b/l. Conjunctiva clear. PERRLA. EOM intact. Moist mucous membranes.?ttp over right and left maxillary sinuses Neck: Supple without LAD Cardiac: Chest wall symmetric. RRR Lungs: +normal respiratory effort, no accessory muscle use, no tripoding, diffuse expiratory wheezes, no crackles Abdomen: Soft, non-tender, non-distended. No rebound tenderness or guarding. Positive BS x4. Back: No midline spinous or paraspinal tenderness. No step off deformity. Ext: no pitting edema. no calf tenderness b/l. Neuro: AOx3. Normal speech. Ambulating with steady gait. Course Course Course Narrative: 84 yo female with PMH of arthritis, osteoporosis, HTN, HLD, hyperparathyroidism here with cough for 6 to 8 days with yellow sputum. She has weakness, no fevers, she cannot walk around. She feels head pressure. She has bilateral ear pain. She has sore throat. She went to [facility] and came back on 10/26/25. She notes her family members were sick first. She is tachypneic on arrival. She will have labs, EKG, CXR, viral panel, start on neb therapy and empiric ceftriaxone for presumed pneumonia. this is a RAPID medical screening exam the rest of the history and physical exam is to be done by the main provider. 12:23 PM 10/30/2025 (EVETTE CONNORS): Reevaluation(s) Reevaluation #1: CBC without leukocytosis or left shift. H&H stable and appears to be around patient's baseline. chemistry without acute electrolyte abnormality requiring intervention. no NICK. random glucose 151 - no anion gap. liver function at baseline. lactic wnl. trop wnl. NT pro BNP 356 - no priors to compare to. clinically, she is not flid overloaded. negative covid, flu, rsv. chest xray without evidence of pulmonary edema or pneumonia. cta chest without evidence of PE or pneumonia - there is difuse thickening of the small airways consistent with bronchitis. ct head without acute intracranial abnormality. there is right maxillary sinus disease. 1621 -- On re-evaluation, patient reports significant improvement in symptoms after receiving breathing treatment x2 and solu-Medrol. she is sustaining 95% on RA during ambulatory O2 trial, does not feel short breath. She looks much improved when compared to her initial presentation. I discussed all workup results with both her and her daughter who is at bedside. Used shared decision-making to determine disposition home. Patient feels safe returning home with p.o. medications. I will be sending Augmentin for sinus infection and azithromycin for bronchitis. She has been inhaler at home. I will also be sending a 5 day course of prednisone. Patient has remained stable throughout ED visit today. Discussed worrisome signs and symptoms and when to return to the ED. All questions answered at this time. Patient is agreeable with disposition and stable for discharge. Medications Administered Discontinued Medications Generic Name Dose Route Start Last Admin Trade Name Freq PRN Reason Stop Dose Admin Albuterol Sulfate 2.5 mg/ 5 mg 10/30/25 14:38 10/30/25 14:43 Albuterol Sulfate 2.5 mg INHALE 10/30/25 14:39 5 mg ONCE ONE Administration Albuterol Sulfate 5 mg/ 0 mg 10/30/25 12:34 10/30/25 12:38 Albuterol/Ipratropium 3 ml INHALE 10/30/25 12:35 7.5 each ONCE ONE Administration Ceftriaxone Sodium 1 gm/ 50 mls @ 100 mls/hr 10/30/25 12:24 10/30/25 13:19 Sodium Chloride IV 10/30/25 12:53 Infused ONCE ONE Infusion Iohexol 100 ml 10/30/25 14:23 10/30/25 14:23 Iohexol 350 Mg/Ml 100 Ml Infus..Btl IV 10/30/25 14:24 65 ml ONCE ONE Administration Methylprednisolone Sodium Succinate 60 mg 10/30/25 12:24 10/30/25 12:48 Methylprednisolone Sod Succ 125 Mg/2 Ml Vial IVPUSH 10/30/25 12:25 60 mg ONCE ONE Administration Medical Decision Making Medical Decision Making MDM Narrative: 84-year-old female with pmhx significant for arthritis, osteoporosis, HTN, HLD, hyperparathyroidism presents to the ED today for evaluation of cough x1 week. tachypneic, vitals are otherwise wnl. on exam, normal respiratory effort, no accessory muscle use, no tripoding, diffuse expiratory wheezes, no crackles. no pitting edema, no calf tenderness bilaterally. Differential diagnosis includes viral syndrome, pneumonia, bronchitis, pulmonary embolism, ACS, arrhythmia Plan for labs, chest x-ray, ekg, viral swabs, bronch treatment and re-evaluation. Differential Diagnosis Differential Diagnoses: The differential diagnosis associated with the presentation includes as above. Admission/Observation Consideration of admission/observation: Escalation of care including admission/observation considered Lab Data MDM Lab Attestation statement: I reviewed the patient's lab results. as above. 10/30/25 11:56 10/30/25 11:56 Labs: Lab Results 10/30/25 10/30/25 10/30/25 Range/Units 11:56 12:41 14:44 WBC 7.8 (4.8-10.8) X10*3/uL RBC 4.54 (4.20-5.50) X10*6/uL Hgb 11.9 L (12.0-16.0) g/dl Hct 37.7 (37.0-47.0) % MCV 83.0 (80.0-98.0) fL MCH 26.2 L (27.0-33.0) pg MCHC 31.6 (31.0-35.0) g/dl RDW 14.2 (11.0-16.0) % Plt Count 184 (160-400) X10*3/uL MPV 10.8 (9.4-12.3) fL Immature Gran % (Auto) 0.3 (0.0-0.4) % Neut % (Auto) 65.8 (45-73) % Lymph % (Auto) 20.0 (20-40) % [place] % (Auto) 12.1 H (2-11) % Eos % (Auto) 1.3 (0-4) % Baso % (Auto) 0.5 (0-2) % Lymph # (Auto) 1.6 (1.2-4.9) X10*3/uL [place] # (Auto) 0.9 (0.1-1.2) X10*3/uL Eos # (Auto) 0.1 (0.0-0.4) X10*3/uL Baso # (Auto) 0.0 (0.0-0.2) X10*3/uL Abs Immat Gran (auto) 0.02 (0.00-0.03) X10*3/uL Absolute Neuts (auto) 5.1 (2.0-8.3) x10*3/uL Absolute Nucleated RBC 0.000 (0.0-0.012) X10*3/uL Nucleated RBC % (auto) 0.0 (0.0-0.2) /100WBC D-Dimer High Sensitivty 327 NG/ML Sodium 137 (135-145) mmol/L Potassium 4.5 (3.3-5.1) mmol/L Chloride 105 (96-108) mmol/L Carbon Dioxide 26 (22-29) mmol/L Anion Gap 11 L (12-20) BUN 18 H (9-16) mg/dL Creatinine 1.08 (0.5-1.4) mg/dL Estim Creat Clear Calc TNP Estimated GFR 48 Random Glucose 151 H (60-115) mg/dL Lactic Acid 1.0 (0.5-2.0) mmol/L Calcium 9.0 (8.4-10.2) mg/dL Magnesium 2.1 (1.6-2.6) mg/dL Total Bilirubin 0.9 (0.0-1.0) mg/dL Direct Bilirubin 0.3 (0.0-0.5) mg/dL AST 19 (5-31) U/L ALT 11 (0-31) U/L Alkaline Phosphatase 75 (39-117) U/L Troponin I High Sens 5.7 D (<3.5-17.0) ng/L NT-Pro-B Natriuret Pep 356.2 H (<300) pg/mL Total Protein 7.4 (6.5-8.0) g/dL Albumin 3.8 (3.5-5.0) g/dL Influenza Type A (PCR) NEGATIVE (Negative) Influenza Type B (PCR) NEGATIVE (Negative) RSV RNA Qual (PCR) NEGATIVE (Negative) SARS-CoV-2 RNA (RT-PCR) NEGATIVE (Negative) Independent Interpretation I performed an independent interpretation of an: EKG, Plain X-Ray and CT Scan Interpretation: ekg showing NSR rate of 77 bpm no acute ischemic changes or st elevations cxr without infiltrate or consolidation, no pulmonary edema cta chest without PE Radiology Impression Discussion of test interpretation with radiology: I have reviewed the radiologist's reading. Radiologist Impression: Procedure(s): XR chest 1V Accession Number(s): [id number] cc: Evi Thomson MD; Ashley Cevallos DO~ Reason for Exam: chest pain EXAMINATION: XR CHEST CLINICAL INFORMATION: chest pain COMPARISON: 10/29/2025. TECHNIQUE: Frontal view of the chest was obtained. FINDINGS: Mildly eventrated right hemidiaphragm, unchanged. The cardiac, hilar, and mediastinal contours are normal. The lungs are clear bilaterally. No pneumothorax or effusion. No focal osseous or soft tissue abnormality. There are degenerative changes throughout the spine. XR/XR chest 1V IMPRESSION: No active pulmonary disease. Procedure(s): CT angio chest PE protocol Accession Number(s): [id number] cc: Evi Thomson MD; Ayde Lund~ Report Number: [id number]: Total DLP = 0.00 mGy-cm Reason for Exam: chest pain, cough, recent flight EXAMINATION: CT ANGIOGRAM CHEST CLINICAL INFORMATION: Chest pain, cough, increased slightly. COMPARISON: Chest x-ray dated earlier same day. No prior chest CT. TECHNIQUE: Multiple axial images were obtained through the chest after the administration of 50 mL of Omnipaque 350 intravenous contrast. Extensive vascular post-processing including two-dimensional and three-dimensional reformatted images were created and reviewed on an independent workstation. This CT examination was performed using dose optimization techniques as appropriate, variously including the following: *Automated exposure control *Adjustment of mA and/or kV according to patient size (this includes techniques or standardized protocols for targeted exams where dose is matched to indication/reason for exam; i.e. extremities or head) *Use of iterative reconstruction technique FINDINGS: VASCULAR: There is adequate opacification of the pulmonary arteries with contrast. There is limitation due to respiratory motion degradation, particularly in the lower lungs. This significantly limits the sensitivity of the study. No definite pulmonary arterial filling defect is identified within these confines. Cannot exclude subsegmental embolic disease in the lower lobe distribution due to motion. Main pulmonary artery/pulmonary trunk is mildly prominent, although not pathologically enlarged. There is no right heart strain pattern. There is some reflux of contrast into the hepatic veins, suggesting possible right heart failure. The aorta is normal in caliber and contour without evidence of acute aortic syndrome or aneurysm. There is a 2 vessel branching pattern. The heart is mildly enlarged. There is calcification of the mitral annulus. There is no pericardial effusion of significance. LUNGS: Within the confines of respiratory motion artifact, there is mild dependent subpleural atelectasis in the bilateral lower lobes. There is no segmental consolidation or definitive pneumonia identified. There is no interstitial abnormality. There is mild thickening of the small airways suggesting bronchitis, either acute or chronic. The central airways are patent. There is no pleural effusion or pneumothorax. No pulmonary nodule or mass within the confines of motion. PLEURA: There is no pleural effusion. No pleural mass or thickening. MEDIASTINUM: There is severe enlargement of the thyroid, which extends caudally to the sternal notch. There are multiple nodules and calcifications contained within. There is no mediastinal mass or abnormal lymphadenopathy present. The esophagus is nondilated. The central airways are patent. Partial expiratory appearance. AXILLA/CHEST WALL: No lymphadenopathy or mass. UPPER ABDOMEN: Contrast reflux into the hepatic veins, suggesting possible increased right heart pressures. There is mild hyperplasia of the left adrenal. Otherwise, imaged upper abdominal contents appear normal. OSSEOUS STRUCTURES: No suspicious lytic or blastic bone lesion present. There are mild to moderate degenerative changes throughout the spine. CT/CT angio chest PE protocol IMPRESSION: 1. Respiratory motion degraded examination. Within these confines, there is no central or segmental pulmonary embolus. Cannot exclude subsegmental emboli in the lower lobe distributions due to motion. 2. Within the confines of respiratory motion, the lungs appear clear. There is diffuse thickening of the small airways suggesting bronchitis/inflammatory airways disease. 3. There is mild cardiac enlargement. 4. Multinodular goiter. 5. Additional ancillary findings as discussed in the body of the report. Electronically signed by: Blue Suero MD 10/30/2025 03:[address] [facility] Procedure(s): CT head/brain wo IV con Accession Number(s): [id number] cc: Evi Thomson MD; Ayde Lund~ Report Number: [id number]: Total DLP = 910.00 mGy-cm Reason for Exam: severe HAs and dizziness EXAMINATION: CT HEAD WITHOUT CONTRAST CLINICAL INFORMATION: Severe headaches and dizziness. 84-year-old female. COMPARISON: 07/19/2023. MRI brain 11/26/2024. TECHNIQUE: Contiguous axial imaging was performed from the skull base to vertex without intravenous administration of contrast. This CT examination was performed using dose optimization techniques as appropriate, variously including the following: *Automated exposure control *Adjustment of mA and/or kV according to patient size (this includes techniques or standardized protocols for targeted exams where dose is matched to indication/reason for exam; i.e. extremities or head) *Use of iterative reconstruction technique FINDINGS: There is no evidence of intracranial hemorrhage or extra-axial fluid collection. There is no mass effect, or edema. No CT evidence of acute territorial infarct. Ventricles, sulci, and cisterns are normal in size and configuration for patient age. No hydrocephalus. No midline shift. Negative hyperdense MCA sign. Negative insular ribbon sign. Patchy periventricular and deep white matter hypoattenuation is consistent with mild small vessel ischemic changes. Normal pituitary. Mild atheromatous calcification of the bilateral carotid siphons and V4 segments vertebral arteries bilaterally. Globes and orbital contents image normally. There are bilateral lens replacements. No extracranial soft tissue abnormalities. Near-complete opacification of the right maxillary sinus is present, with a dependent calcification present, likely indicating chronicity. Only a tiny amount of the antrum is aerated. There is mild mucosal thickening seen in the left maxillary sinus and throughout the ethmoid air cells. No suspicious bony abnormalities. There are no acute fractures evident. There are degenerative changes in both TM joints. CT/CT head/brain wo IV con IMPRESSION: 1. No acute intracranial abnormality. 2. Paranasal sinus disease, most significant in the right maxillary sinus where there is near complete opacification. This is likely acute. Electronically signed by: Blue Suero MD 10/30/2025 02:[address] [facility] Independent Historian Clinical information obtained from an independent historian. History obtained from or confirmed by: Other (daughter) External Record Review External record reviewed: Inpatient record Prescription Management I considered prescription management with: Antibiotic (azithromycin, augmentin) and Other (prednisone) Social Determinants Patient?s care significantly limited by Social Determinants of Health including: Other Social Determinant of Health Critical Care Time Critical Care Time Critical Care Time: Yes Total Critical Care Time: 43 Attestation: Critical care time in the amount of 45 minutes has been provided to the patient in terms of direct patient care, frequent reevaluation, review and interpretation of medical data and results, and management of potentially life-threatening conditions. This is all outside of any medical procedures. Discharge Plan Discharge Clinical Impression: Right maxillary sinusitis, Bronchitis Patient Disposition: Home, Self-Care Instructions: Sinusitis (ED), Acute Bronchitis (ED) Additional Instructions: Your blood work is reassuring. You tested negative for COVID, flu, RSV. Your chest x-ray does not demonstrate pneumonia. The CT scan of your chest does not demonstrate any blood clot in your lungs or pneumonia. It does show thickening of your airways consistent with bronchitis. See home care instructions. I am starting you on azithromycin. Take this as prescribed over the next 5 days. You may continue using your inhaler at home as needed for shortness of breath. I am also starting you on a 5 day course of Prednisone, this is a steroid. Take this as prescribed over the next [address] scan of your head shows sinus disease to your right maxillary sinus. This is likely the cause of the pressure in your head. There are no other acute findings. I am starting you on a 2nd antibiotic called Augmentin. On Augmentin, softer bowel movements are to be expected. Call your provider if you move your bowels more than 4 times a day, your bowel movements are almost all liquid, or you get a rash.? You may take Tylenol/Motrin at home as needed. Please follow up with your primary care provider. Return with any new or worsening symptoms. In the case of an emergency call 911. Prescriptions: New azithromycin 250 mg tablet See Rx Instructions PO .COMPLEX Qty: 6 0RF Rx Instructions: For 250 mg dose pack: take 500 mg today (day 1), then 250 mg for 4 days (days 2-5) amoxicillin-pot clavulanate 875-125 mg tablet 1 tab PO Q12H 7 Days Qty: 14 0RF prednisone 20 mg tablet 40 mg PO DAILY 5 Days Qty: 10 0RF No Action Prolia 60 mg/mL syringe 60 mg subcut [id number] ropinirole 2 mg tablet 1 mg PO BID Qty: 30 6RF Rx Instructions: at 4pm and at bedtime methimazole 5 mg tablet 2.5 mg PO DAILY Qty: 45 4RF cholecalciferol (vitamin D3) [Vitamin D3] 25 mcg (1,000 unit) capsule 25 mcg PO DAILY Qty: 90 1RF amlodipine 5 mg tablet 5 mg PO DAILY fluticasone propionate 50 mcg/actuation spray,suspension 1 spray intranasal DAILY acetaminophen 325 mg Tablet 975 mg PO Q6H PRN (Reason: pain) Qty: 1 0RF atorvastatin 20 mg tablet 20 mg PO DAILY benazepril 10 mg tablet 10 mg PO DAILY gabapentin 300 mg capsule 300 mg PO BEDTIME gabapentin 100 mg capsule 100 mg PO BID PRN (Reason: restless legs ) Qty: 60 6RF Referrals: Evi Thomson MD [Primary Care Provider, Internal Medicine] Interventions: ED Discharge Assessment Last Done: 10/30/25 16:56 Discharge Date/Time: 10/30/25 17:14 Print Language: Tamazight
[2025-10-30 12:23] LABS: Alanine Aminotransferase 11 U/L (0-31); Albumin Level 3.8 g/dL (3.5-5.0); Alkaline Phosphatase 75 U/L (39-117); Anion Gap 11 (12-20); Aspartate Amino Transferase 19 U/L (5-31); Blood Urea Nitrogen 18 mg/dL (9-16); Calcium 9.0 mg/dL (8.4-10.2); Carbon Dioxide 26 mmol/L (22-29); Chloride 105 mmol/L (96-108); Estimated Glomerular Filt Rate 48; Magnesium 2.1 mg/dL (1.6-2.6); Potassium 4.5 mmol/L (3.3-5.1); Sodium 137 mmol/L (135-145); Total Protein 7.4 g/dL (6.5-8.0)
[2025-10-30 12:32] LABS: NT Pro B Type Natriuretic Pept 356.2 pg/mL (<300); Troponin-I High Sensitivity 5.7 ng/L (<3.5-17.0)
[2025-10-30] MEDS: Albuterol Sulfate 5 MG, Albuterol/Iprat 2.5/0.5MG 3 ML 3 ML INHALE (12:38)
[2025-10-30 12:47] LABS: Resp Syncy Virus RNA Qual PCR NEGATIVE (Negative); SARS COV2 PCR INHOUSE NEGATIVE (Negative)
[2025-10-30] MEDS: iohexoL 350 MG/ML 100 ML INFUS..BTL IV (14:23)
[2025-10-30] MEDS: Albuterol Sulfate 2.5 MG, Albuterol Sulfate (0.083%) 2.5 MG 5 MG INHALE (14:43)
[2025-10-30 15:03] LABS: D Dimer High Sensitivity 327 NG/ML
--- OUTSIDE RECORDS SUMMARY | 2025-10-30 16:22 | XMS_ITS | Clinical Summary ---
Author Organization [employer] [facility] Prior to 04/14/25 Address [address] [place] [address] Care Team Providers Care Wharf Labourer Name Role Phone Evi Thomson MD Primary Care Provider + [phone] Medications No known medications Active Problems No [...] - 1-dose 75+ series) 2013 COVID-19 Vaccine (2024-2 6 season) 2025 10/17/2021, 03/20/2021, 02/20/2021 Influenza Vaccine (#1) 2025 , 10/01/2020, 08/24/2019 Hepatitis B Vaccines Aged Out No long er eligible based on patient's age to complete this topic RSV Ped < 20 months Aged Out No longe r eligible based on patient's age to complete this topic Care Teams Wharf Labourer Relationship Specialty Start Date End Date Evi Thomson MD [address] [place] [address] [phone] PCP - General Family Medicine 09/03/23
--- OUTSIDE RECORDS SUMMARY | 2025-10-30 16:22 | XMS_ITS | Encounter Summary ---
Author Organization [employer] Address 75 [facility] 7t [place] [address] Care Team Providers Care Bridge Mechanic Name Role Phone Evi Thomson MD Primary Care Provider + Valerio Sweet PharmD Unavailable [phone] Reason for Visit * Reason Onset Date Comments Med Refill 09/11/2025 Encounter Details Date Type Department Care Team ([facility] st Contact Info) Description 09/11/2025 Telephone [facility] MEDICINE [address] [place], [place] [phone] Evi Thomson MD 230 [place], [place] [phone] Med Refill Social History Tobacco Use Types [...] EDT Travel History Travel Start Travel End [place] 09/28/2025 10/16/2025 documented as of this encounter Miscellaneous Notes * Telephone Encounter - Norma Cast LPN - 09/11/2025 2:49 PM EDT Atorvastatin was sent to [facility] #[id number] on 04/23/25 #90 with 2 refills. BENAZEPRIL 10 mg was discontinued. * Telephone Encounter - Sanjeev Maldonado - 09/11/2025 2:37 PM EDT TC from pt requesting medication refill. Medications needing refill : benazepril (Lotensin) 10 MG tablet [[id number]] DISCONTINUED atorvastatin (Lipitor) 20 MG tablet To be sent to: [facility]/pharmacy #[id number] documented in this encounter Plan of Treatment Upcoming Encounters Date Type Department Care Team ([facility] st Contact Info) Description 11/26/2025 9:15 AM EST Office Visit [facility] MEDICINE [address] [place] [address] Evi Thomson MD [address] [place] [address] documented as of this encounter Goals Goal Patient Goal Type Associated Problems Recent Progress Patient-Stated? Author Blood Pressure < 140/90 Blood Pressure 138/66( 025 10:21 AM EST) No Valerio Sweet, Karl documented as of this encounter Visit Diagnoses Not on filedocumented in this encounter Additional Health Concerns Assessment Noted Time PHQ-9 Depression Total Score: 5 07/04/20 25 8:47 AM EDT documented as of this encounter Care Teams Bridge Mechanic Relationship Specialty Start Date End Date Evi Thomson MD [address] [place] [address] PCP - General Family Medicine 03/13/19 Valerio Sweet, PharmD [address] [place] [address] Pharmacist Internal Medicine 11/02/22 O[place]ia SPENCERA 05/17/25 documented as of this encounter
--- OUTSIDE RECORDS SUMMARY | 2025-10-30 16:22 | XMS_ITS | Encounter Summary ---
Author Organization [employer] Address 75 [facility] 7t [place] [address] Care Team Providers Care Car Repairman Name Role Phone Evi Thomson MD Primary Care Provider + Valerio Sweet PharmD Unavailable [phone] Reason for Visit * Reason Onset Date Comments Med Refill 06/14/2025 Encounter Details Date Type Department Care Team (Late st Contact Info) Description 06/14/[address] [facility] MEDICINE [address] [place], [place] [phone] Evi Thomson MD 230 [place], [place] [phone] Med Refill Social History Tobacco Use Types [...] 10:23 AM EDT Lidocaine was sent to [facility] #[id number] on 06/12/25 #30 with 1 refill and Ropinirole isn't prescribed by PCP. * Telephone Encounter - Shyam Silverio - 06/14/2025 10:18 AM EDT TC from pt requesting medication refill. Medications needing refill : rOPINIRole (Requip) 1 MG tablet lidocaine (Lidoderm) 5 % patch To be sent to: [facility]/pharmacy #[id number] - [facility] [place] - [address] [place] [address] documented in this encounter Plan of Treatment Upcoming Encounters Date Type Department Care Team ([facility] st Contact Info) Description 11/26/2025 9:15 AM EST Office Visit [facility] MEDICINE [address] [place] [address] Evi Thomson MD [address] [place] [address] documented as of this encounter Goals Goal [...] documented as of this encounter Care Teams Car Repairman Relationship Specialty Start Date End Date Evi Thomson MD [address] [place] [address] PCP - General Family Medicine 03/13/19 Valerio Sweet, PharmD [address] [place] [address] Pharmacist Internal Medicine 11/02/22 [facility] 05/17/25 documented as of this encounter
--- OUTSIDE RECORDS SUMMARY | 2025-10-30 16:22 | XMS_ITS | Encounter Summary ---
Author Organization [employer] Address 75 [facility] 7t [place] [address] Care Team Providers Care General Clerk Name Role Phone Evi Thomson MD Primary Care Provider + Valerio Sweet PharmD Unavailable [phone] Reason for Visit * Reason Comments Med Refill Encounter Details Date Type Department Care Team ([facility] st Contact Info) Description 09/10/2025 Refill [facility] MEDICINE [address] [place], [place] [phone] Norma Avitia DO 230 [place], [place] [phone] Allergic rhinitis due to other allergic trigger, [...] 09/28/2025 10/16/2025 documented as of this encounter Plan of Treatment Upcoming Encounters Date Type Department Care Team (Late st Contact Info) Description 11/26/2025 9:15 AM EST Office Visit [facility] MEDICINE [address] [place] [address] Evi Thomson MD [address] [place] [address] documented as of this encounter Goals Goal [...] documented as of this encounter Care Teams General Clerk Relationship Specialty Start Date End Date Evi Thomson MD [address] [place] [address] PCP - General Family Medicine 03/13/19 Valerio Sweet, PharmD 230 [place] [address] Pharmacist Internal Medicine 11/02/22 O[place]ia JOSUE 05/17/25 documented as of this encounter
--- OUTSIDE RECORDS SUMMARY | 2025-10-30 16:22 | XMS_ITS | Encounter Summary ---
Author Organization [employer] Address 75 [facility] 7t [place] [address] Care Team Providers Care Emt Dispatcher Name Role Phone Evi Thomson MD Primary Care Provider + Valerio Sweet PharmD Unavailable [phone] Reason for Visit * Reason Onset Date Comments HDF/Triage 01/07/2023 Encounter Details Date Type Department Care Team ([facility] st Contact Info) Description 01/07/2023 Telephone [facility] MEDICINE 230 [place], [place] [phone] Evi Thomson MD 230 [place], [place] [phone] HDF/Triage Social History Tobacco Use Types Packs/Day [...] EDT Travel History Travel Start Travel End [facility] 09/28/2025 10/16/2025 COVID-19 Exposure Response Date Recorded In the last 10 days, have yo u been in contact with someone who was confirmed or suspected to have Coronavirus/COVID-19? No / Unsure 12/25/2022 11:53 AM EST documented as of this encounter Miscellaneous Notes * Telephone Encounter - Dyana Hou - 01/07/2023 3:31 PM EST Patient calling for HDF follow up appointment. Patient hospitalized at [facility] . Patient was admitted on 01/06/2023 and discharged on same day. Patient was advised will forward to triage nurse for follow up and appointment scheduling. Please contact pt son in law on [phone] documented in this encounter Plan of Treatment Upcoming Encounters Date Type Department Care Team (Late st Contact Info) Description 11/26/2025 9:15 AM EST Office Visit [facility] MEDICINE [address] [place] [phone] Evi Thomson MD [address] [place] [address] documented as of this encounter Visit Diagnoses Not on filedocumented in this encounter Care Teams Emt Dispatcher Relationship Specialty Start Date End Date Evi Thomson MD [address] [place] [address] PCP - General Family Medicine 03/13/19 Valerio Sweet, NickiD [address] [place] [address] Pharmacist Internal Medicine [facility]/02[facility] documented as of this encounter
--- OUTSIDE RECORDS SUMMARY | 2025-10-30 16:22 | XMS_ITS | Encounter Summary ---
Author Organization [employer] Address 75 [facility] 7t [place] [address] Care Team Providers Care Maid Supervisor Name Role Phone Evi Thomson MD Primary Care Provider + Valerio Sweet PharmD Unavailable [phone] Encounter Details Date Type Department Care Team ([facility] st Contact Info) Description 11/24/2022 Orders Only [facility] MEDICINE 230 [place], [place] [phone] Evi Thomson MD [address] [place], [place] [phone] Hyperkalemia (Primary Dx) Social History Tobacco Use [...] EDT Travel History Travel Start Travel End [facility] 09/28/2025 10/16/2025 COVID-19 Exposure Response Date [...] hyperkalemia. Please call renal and ask that rn mds coordinator calls me back to discuss hyperkalemia and possibility of lokelma or changing meds documented in this encounter Plan of Treatment Upcoming Encounters Date Type Department Care Team (Late st Contact Info) Description 11/26/2025 9:15 AM EST Office Visit [facility] MEDICINE 230 [place], [place] [phone] Evi Thomson MD [address] [place], [place] [phone] documented as of this encounter Procedures Procedure Name Priority Date/Time Associated Diagnosis Comments POTASSIUM Routine 11/27/2022 8:47 AM EST Hyperkalemia documented in this encounter Results * Potassium (11/27/2022 8:47 AM EST) Potassium 5.1 3.5 - 5.3 mmol/L [employer] [place] [employer] Blood Venous blood specimen / Unknown 11/27/2022 8:47 AM EST 11/27/2022 8:48 AM EST Narrative [facility] - 11/27/2022 8:46 PM EST FASTING:YES FASTING: YES us Evi Thomson MD LAB BLOOD ORDERABLES Fin al Result [facility] [address] [facility], [place] [address] [employer] [place] [employer] [address] [facility], (Nl2) [place] [address] documented in this encounter Visit Diagnoses Diagnosis Hyperkalemia- Primary Hyperpotassemia documented in this encounter Care Teams Maid Supervisor Relationship Specialty Start Date End Date Evi Thomson MD [address] [place] [address] PCP - General Family Medicine 03/13/19 Valerio Sweet, Karl [address] [place] [address] Pharmacist Internal Medicine 11/02/22 [facility] A 05/17/25 documented as of this encounter
--- OUTSIDE RECORDS SUMMARY | 2025-10-30 16:22 | XMS_ITS | Encounter Summary ---
Author Organization [employer] Address [address] [place] [address] 7t [place] [address] Care Team Providers Care Sand Bobber Name Role Phone Evi Thomson MD Primary Care Provider + Valerio Sweet PharmD Unavailable [phone] Encounter Details Date Type Department Care Team (Late st Contact Info) Description 10/16/2022 Orders Only [facility] MEDICINE [address] [place] [address] [phone] Evi Thomson MD 230 [place], [place] [phone] Social History Tobacco Use Types Packs/Day Years Used Date Smoking Tobacco: Never Assessed Comments No Sex and Gender Information Value Date Recorded Sex Assigned at Female 09/14/2022 10:16 AM EDT Legal Sex Female 10:16 AM EDT Gender Identity Female 09/14/2022 10:16 AM EDT Sexual Orientation Straight 09/14/2022 10 :16 AM EDT Travel History Travel Start Travel End [facility] 09/28/2025 10/16/2025 COVID-19 Exposure Response Date Recorded In the last 10 days, have yo u been in contact with someone who was confirmed or suspected to have Coronavirus/COVID-19? No / Unsure 10/15/2022 11:46 AM EST documented as of this encounter Plan of Treatment Upcoming Encounters Date Type Department Care Team (Late st Contact Info) Description 11/26/2025 9:15 AM EST Office Visit [facility] MEDICINE [address] [place] [address] [phone] Evi Thomson MD 230 [place] [address] documented as of this encounter Visit Diagnoses Not on filedocumented in this encounter Care Teams Sand Bobber Relationship Specialty Start Date End Date Evi Thomson MD [address] [place] [address] PCP - General Family Medicine 03/13/19 Valerio Sweet, Karl [address] [place] [address] Pharmacist Internal Medicine 11/02/22 [facility] A 05/17/25 documented as of this encounter
--- OUTSIDE RECORDS SUMMARY | 2025-10-30 16:22 | XMS_ITS | Encounter Summary ---
Author Organization [employer] Address [address] [place] [address] 7 [place] [address] Care Team Providers Care Pressing Machine Operator Name Role Phone Evi Thomson MD Primary Care Provider + Valerio Sweet PharmD Unavailable [phone] Encounter Details Date Type Department Care Team (Late st Contact Info) Description 10/06/[address] [facility] MEDICINE [address] [place] [address] [phone] ProviderFuentes MD Social History Tobacco Use Types Packs/Day Years Used Date Smoking Tobacco: Never Assessed Comments Unknown Sex and Gender Information Value Date Recorded Sex Assigned at Female 09/14/2022 10:16 AM EDT Legal Sex Female 10:16 AM EDT Gender Identity Female 09/14/2022 10:16 AM EDT Sexual Orientation Straight 09/14/2022 10 :16 AM EDT Travel History Travel Start Travel End [facility] 09/28/2025 10/16/2025 documented as of this encounter Plan of Treatment Upcoming Encounters Date Type Department Care Team (Late st Contact Info) Description 11/26/2025 9:15 AM EST Office Visit [facility] MEDICINE 230 [place] [address] Evi Thomson MD 230 [place], [place] [phone] documented as of this encounter Visit Diagnoses Not on filedocumented in this encounter Care Teams Pressing Machine Operator Relationship Specialty Start Date End Date Evi Thomson MD [address] [place] [address] [phone] PCP - General Family Medicine 03/13/19 Valerio Sweet, NickiD [address] [place] [address] Pharmacist Internal Medicine 11/02/22 [place] JOSUE 05/17/25 documented as of this encounter
--- OUTSIDE RECORDS SUMMARY | 2025-10-30 16:22 | XMS_ITS | Encounter Summary ---
Author Organization [employer] Address 75 [facility] 7t [place] [address] Care Team Providers Care Meeting Specialist Name Role Phone Evi Thomson MD Primary Care Provider + Valerio Sweet PharmD Unavailable [phone] Reason for Visit * Reason Comments Med Refill Encounter Details Date Type Department Care Team ([facility] st Contact Info) Description 09/10/2025 Refill [facility] MEDICINE 230 [place], [place] [phone] Evi Thomson MD 230 [place], [place] [phone] Pure hypercholesterolemia Social History Tobacco Use Types [...] Description 11/26/2025 9:15 AM EST Office Visit [facility] MEDICINE [address] [place] [address] Evi Thomson MD [address] [place] [address] documented as of this encounter Goals Goal Patient Goal Type Associated Problems Recent Progress Patient-Stated? Author Blood Pressure < 140/90 Blood Pressure 138/66( 025 10:21 AM EST) No Valerio Sweet PharmD documented as of this encounter Visit Diagnoses Diagnosis Pure hypercholesterolemia documented in this encounter Additional Health Concerns Assessment Noted Time PHQ-9 Depression Total Score: 5 07/04/20 25 8:47 AM EDT documented as of this encounter Care Teams Meeting Specialist Relationship Specialty Start Date End Date Evi Thmoson MD [address] [place] [address] PCP - General Family Medicine 03/13/19 Valerio Sweet PharmD [address] [place] [address] Pharmacist Internal Medicine 11/02/22 [place] JOSUE 05/17/25 documented as of this encounter
--- OUTSIDE RECORDS SUMMARY | 2025-10-30 16:23 | XMS_ITS | Encounter Summary ---
Author Organization [employer] Address 75 [facility] 7t [place] [address] Care Team Providers Care Log Grader Name Role Phone Evi Thomson MD Primary Care Provider + Valerio Sweet PharmD Unavailable [phone] Encounter Details Date Type Department Care Team ([facility] st Contact Info) Description 08/10/2024 Telephone [facility] MEDICINE 230 [place], [place] [phone] Evi Thomson MD 230 [place], [place] [phone] Social History Tobacco Use Types Packs/Day Years [...] Description 11/26/2025 9:15 AM EST Office Visit [facility] MEDICINE [address] [place] [address] Evi Thomson MD 230 [place] [address] documented as of this encounter Goals Goal Patient Goal Type Associated Problems Recent Progress Patient-Stated? Author Blood Pressure < 140/90 Blood Pressure 138/66( 025 10:21 AM EST) No Valerio Sweet PharmD documented as of this encounter Visit Diagnoses Not on filedocumented in this encounter Care Teams Log Grader Relationship Specialty Start Date End Date Evi Thomson MD [address] [place] [address] PCP - General Family Medicine 03/13/19 Valerio Sweet PharmD [address] [place] [address] Pharmacist Internal Medicine 11/02/22 [facility] documented as of this encounter
--- OUTSIDE RECORDS SUMMARY | 2025-10-30 16:23 | XMS_ITS | Clinical Summary ---
Author Organization [employer] [facility] Address [address] [place] [address] Care Team Providers Care Procurement Inspector Name Role Phone Evi Thomson MD Primary Care Provider [phone] Immunizations Immunization Administration Dates Next Due Moderna [...] age to complete this topic Care Teams Procurement Inspector Relationship Specialty Start Date End Date Evi Thomson MD [address] [place] [phone] PCP - General 09/03/23
--- OUTSIDE RECORDS SUMMARY | 2025-10-30 16:23 | XMS_ITS | Encounter Summary ---
Author Organization [employer] Address 75 [facility] 7t [place] [address] Care Team Providers Care Radiologic Therapist Name Role Phone Evi Thomson MD Primary Care Provider + Valerio Sweet PharmD Unavailable [phone] Reason for Visit * Reason Comments Med Refill Encounter Details Date Type Department Care Team ([facility] st Contact Info) Description 09/17/2025 Refill [facility] MEDICINE 230 [place], [place] [phone] Evi Thomson MD 230 [place], [place] [phone] Pure hypercholesterolemia Social History Tobacco Use Types [...] Description 11/26/2025 9:15 AM EST Office Visit [facility] MEDICINE [address] [place] [address] Evi Thomson MD [address] [place] [address] documented as of this encounter Goals Goal [...] documented as of this encounter Care Teams Radiologic Therapist Relationship Specialty Start Date End Date Evi Thomson MD [address] [place] [address] PCP - General Family Medicine 03/13/19 Valerio Sweet PharmD [address] [place] [address] Pharmacist Internal Medicine 11/02/22 [place] JOSUE 05/17/25 documented as of this encounter
--- OUTSIDE RECORDS SUMMARY | 2025-10-30 16:23 | XMS_ITS | Encounter Summary ---
Author Organization [employer] Address 75 [facility] 7t [place] [address] Care Team Providers Care Oil Laboratory Analyst Name Role Phone Evi Thomson MD Primary Care Provider + Valerio Sweet PharmD Unavailable [phone] Reason for Visit * Reason Onset Date Comments Nurse Triage 10/30/2025 Encounter Details Date Type Department Care Team ([facility] st Contact Info) Description 10/30/2025 Telephone [facility] 230 [place], [place] [phone] Evi Thomson MD 230 [place], [place] [phone] Nurse Triage Social History Tobacco Use Types Packs/Day Years [...] encounter Miscellaneous Notes * Telephone Encounter - Toya Still RN - 10/30/2025 11:59 AM EST TC placed to patient daughter (Brigid) on HIPPA. Brigid reported patient was having difficulty breathing and she was unable to manage her symptoms, so they are currently in the ED for further evaluation.RN advised Brigid when the patient id discharged [facility] will schedule an F/U appt. Brigid verbalized understanding. Protocol Used: Cough (Adult) Protocol-Based Disposition: Go to ED Now Positive Triage Questions: * Moderate difficulty breathing (e.g., speaks in phrases, SOB even at rest, pulse 100-120) and still present when not coughing< br /> * Cough with no complications * All higher-acuity triage questions were negative. Care Advice Discussed: * Reassurance and Education - Common Cold Symptoms * How to Protect Others From Getting Your Cold * Expected Course * Reasons To Call Back - Difficulty breathing occurs - Fever lasts more than 3 days - Nasal discharge lasts more than 10 days - Cough lasts more than 3 weeks - You become worse * Telephone Encounter - Samuel Mahan - 10/30/2025 10:10 AM EST Symptoms: Cough, Chest Pain - Adult, Sore Throat, Runny Nose Outcome: Schedule an urgent appointment (within 1 hour) or talk to a nurse or provider soon Reason: Caller denied all higher acuity questions Tc from pt daughter brigid stating she went to walk in center 10/29 pt getting worse . Tc from pt daughter brigid [phone] documented in this encounter Plan of Treatment Upcoming Encounters Date Type Department Care Team (Late st Contact Info) Description 11/26/2025 9:15 AM EST Office Visit [facility] [address] [place] [address] Evi Thomson MD [address] [place] [address] documented as of this encounter Goals Goal [...] documented as of this encounter Care Teams Oil Laboratory Analyst Relationship Specialty Start Date End Date Evi Thomson MD [address] [place] [address] PCP - General Family Medicine 03/13/19 Valerio Sweet PharmD [address] [place] [address] Pharmacist Internal Medicine 11/02/22 [place] SPENCERA 05/17/25 documented as of this encounter
--- OUTSIDE RECORDS SUMMARY | 2025-10-30 16:23 | XMS_ITS | Encounter Summary ---
Author Organization [employer] Address 75 [facility] 7t [place] [address] Care Team Providers Care Groundwater Monitoring Technician Name Role Phone Evi Thomson MD Primary Care Provider + Valerio Sweet PharmD Unavailable [phone] Encounter Details Date Type Department Care Team (Latest Contact Info) Description 10/29/2025 Travel Social History Tobacco Use Types Packs/Day [...] EDT Travel History Travel Start Travel End [facility] 09/28/2025 10/16/2025 documented as of this encounter Plan of Treatment Upcoming Encounters Date Type Department Care Team (Late st Contact Info) Description 11/26/2025 9:15 AM EST Office Visit [facility] MEDICINE 230 [place] [address] Evi Thomson MD [address] [place] [address] documented as of this encounter Goals Goal [...] documented as of this encounter Care Teams Groundwater Monitoring Technician Relationship Specialty Start Date End Date Evi Thomson MD [address] [place] [address] PCP - General Family Medicine 03/13/19 Valerio Sweet PharmD [address] [place] [address] Pharmacist Internal Medicine 11/02/22 [facility] 05/17/25 documented as of this encounter
--- OUTSIDE RECORDS SUMMARY | 2025-10-30 16:23 | XMS_ITS | Encounter Summary ---
Author Organization [employer] Address [address] [facility] 7t [place] [address] Care Team Providers Care Window Caser Name Role Phone Evi Thomson MD Primary Care Provider + Valerio Sweet PharmD Unavailable [phone] Reason for Visit * Reason Comments Med Refill Encounter Details Date Type Department Care Team ([facility] st Contact Info) Description 04/12/2024 Refill [facility] [address] [place], [place] [phone] Evi Thomson MD [address] [place], [place] [phone] Postherpetic neuralgia Social History Tobacco Use Types [...] 11/26/2025 9:15 AM EST Office Visit [facility] [address] [place] [phone] Evi Thomson MD [address] [place] [address] documented as of this encounter Goals Goal Patient Goal Type Associated Problems Recent Progress Patient-Stated? 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
--- OUTSIDE RECORDS SUMMARY | 2025-10-30 16:23 | XMS_ITS | Encounter Summary ---
Author Organization [employer] Address [address] [facility] 7 [place] [address] Care Team Providers Care Operations And Maintenance Specialist Name Role Phone Evi Thomson MD Primary Care Provider + Valerio Sweet PharmD Unavailable [phone] Reason for Visit * Reason Comments Med Change Request Encounter Details Date Type Department Care Team ([facility] st Contact Info) Description 06/22/2025 Refill [facility] [address] [place], [place] [phone] Evi Thomson MD [address] [place], [place] [phone] Social History Tobacco Use Types Packs/Day Years [...] Description 11/26/2025 9:15 AM EST Office Visit [facility] [address] [place] [phone] Evi Thomson MD [address] [place] [phone] documented as of this encounter Goals Goal [...] documented as of this encounter Care Teams Operations And Maintenance Specialist Relationship Specialty Start Date End Date Evi Thomson MD [address] [place] [phone] PCP - General Family Medicine 03/13/19 Valerio Sweet PharmD [address] [place] [phone] Pharmacist Internal Medicine 11/02/22 [facility] 05/17/25 documented as of this encounter
--- OUTSIDE RECORDS SUMMARY | 2025-10-30 16:23 | XMS_ITS | Encounter Summary ---
Author Organization [employer] Address [address] [facility] 7t [place] [address] Care Team Providers Care Engraver Machine Name Role Phone Evi Thomson MD Primary Care Provider + Valerio Sweet PharmD Unavailable [phone] Reason for Visit * Reason Comments Med Refill Encounter Details Date Type Department Care Team ([facility] st Contact Info) Description 08/12/2024 Refill [facility] [address] [place], [place] [phone] Evi Thomson MD [address] [place], [place] [phone] Allergic rhinitis due to other allergic trigger, [...] EDT Travel History Travel Start Travel End [facility] 09/28/2025 10/16/2025 documented as of this encounter Plan of Treatment Upcoming Encounters Date Type Department Care Team (Late st Contact Info) Description 11/26/2025 9:15 AM EST Office Visit [facility] [address] [place] [phone] Evi Thomson MD [address] [place] [phone] documented as of this encounter Goals Goal Patient Goal Type Associated Problems Recent Progress Patient-Stated? Author Blood Pressure < 140/90 Blood Pressure 138/66( 025 10:21 AM EST) No Valerio Sweet, PharmD documented as of this encounter Visit Diagnoses Diagnosis Allergic rhinitis due to other allergic trigger, unspecified seasonality documented in this encounter Care Teams Engraver Machine Relationship Specialty Start Date End Date Evi Thomson MD [address] [place] [phone] PCP - General Family Medicine 03/13/19 Valerio Sweet, PharmD [address] [place] [phone] Pharmacist Internal Medicine 11/02[facility] documented as of this encounter
--- OUTSIDE RECORDS SUMMARY | 2025-10-30 16:23 | XMS_ITS | Encounter Summary ---
Author Organization [employer] Address [address] [facility] 7t [place] [address] Care Team Providers Care Behavioral Sciences Department Chair Name Role Phone Evi Thomson MD Primary Care Provider + Valerio Sweet PharmD Unavailable [phone] Reason for Visit * Reason Comments Med Refill Encounter Details Date Type Department Care Team ([facility] st Contact Info) Description 05/14/2024 Refill [facility] [address] [place], [place] [phone] Amrita Alfred FNP [address] [place] [address] Social History Tobacco Use Types Packs/Day Years [...] Description 11/26/2025 9:15 AM EST Office Visit [facility] [address] [place] [phone] Evi Thomson MD [address] [place] [phone] documented as of this encounter Goals Goal Patient Goal Type Associated Problems Recent Progress Patient-Stated? Author Blood Pressure < 140/90 Blood Pressure 138/66( 025 10:21 AM EST) No Valerio Sweet, PharmMckenna documented as of this encounter Visit Diagnoses Not on filedocumented in this encounter Care Teams Behavioral Sciences Department Chair Relationship Specialty Start Date End Date Evi Thomson MD [address] [place] [phone] PCP - General Family Medicine 03/13/19 Valerio Sweet, PharmD [address] [place] [phone] Pharmacist Internal Medicine [facility] documented as of this encounter
--- OUTSIDE RECORDS SUMMARY | 2025-10-30 16:23 | XMS_ITS | Clinical Summary ---
Author Organization [employer] Address [address] [facility] [address] [place] [address] Care Team Providers Care Senior Control Systems Engineer Name Role Phone Evi Thomson MD Primary Care Provider + Valerio Sweet PharmD Unavailable [phone] Allergies No known active allergies Medications * This document contains information received from the source organization and may not represent a complete record from that organization. methIMAzole (Tapazole) 5 MG tablet Take 0.5 tablets by mouth 1 (one) time each day. Active Elastic Bandages & Supports (B & B Knee Brace/Supports) [facility] 2019 Active Blood Pressure Monitoring (Omron 3 [...] ORALLY DAILY FOR 30 DAYS 2022 Active atorvastatin (Lipitor) 20 MG tabletIndications:Pure hypercholesterolemia [...] NEEDED FOR PAIN 100 g 2024 Active amLODIPine (Norvasc) 5 MG tabletIndications:Rocky gn hypertension TOME 1 TABLETA POR VIA ORAL TODOS LOS JOSEPH 90 tablet 3 2024 Active trimethoprim-polymyxin b (Polytrim) ophthalmic solutionIndications:Ac [place] bacterial conjunctivitis of both eyes Administer 1 drop into affected eye(s) 4 times daily for 10 days. 10 mL 025 12:28 PM EST 11/08 Active albuterol 108 (90 Base) MCG/ACT inhalerIndications:Blanca rtness of breath Inhale 2 puffs every 6 (six) hours if needed for wheezing. 18 g 11 025 12:28 PM EST 10/29 Active acetaminophen (Tylenol 8 Hour) 650 MG ER tabletIndications:Myal vel TAKE 1-2 TABLETS BY MOUTH EVERY 8-12 HOURS NEEDED. SWALLOW WHOLE WITH WATER (MAX 3600MG/D). DO NOT BREAK, CRUSH, DISSOLVE AND/OR CHEW. 120 tablet 6 025 12:28 PM EST 2024 Active acetaminophen (Tylenol 8 Hour) 650 MG ER tabletIndications:Lumb osacral radiculopathy TAKE 1-2 TABLETS BY MOUTH EVERY 8-12 HOURS NEEDED. SWALLOW WHOLE WITH WATER (MAX 3600MG/D). DO NOT BREAK, CRUSH, DISSOLVE AND/OR CHEW. 120 tablet 6 07/10/ 2024 12/15 /2025 Discontinued( Reorder (will not trigger notification to Pharmacy)) Hospital, Clinic, or Other Facility Administered Medication Ordered Dose Route Frequency Start Date End Date Status albuterol (2.5 MG/3ML) 0.083% nebulizer solution 3 mLIndications:Shortn ess of breath 3 mL NEBULIZATION Once 10/29/2025 10/29/2025 Ended Active Problems Problem Noted Date Diagnosed Date [...] placement and feels safer. Past experiences in prison facilities are causing distress in her mental [...] of major depressive disorder without prior episode ([facility]) 04/19/2025 Assessment & Plan (06/12/2025 2:38 [...] community programs and could be referred to [facility]) - will f/u next visit to [...] AM EDT): Pt will be traveling to [facility] for the for her child. Prescription [...] SNF discharge Recheck BMP Fu with me Lemos 08/27/2023 Assessment & Plan (08/27/2023 11:56 AM [...] visit. RBS wnl Will reschedule appointment w/ lathmaker when she returns form her trip from [facility] Fu 4-6 m Assessment & Plan (09/09/2023 9:44 AM EDT): Controlled. A1c is at goal. Encourage to remain hydrated at all times and I will refer to lathmaker, counseled re more frequent low calorie/carb meals. 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 Take tylenol, she wants to be referred to rheumatology. Knee pain 10/06/2022 04/19/2025 Encounters Date Type Department Care Team Description 10/30/2025 Orders Only GENERIC EXTERNAL DATA DEPARTMENT Provider, Generic External Data 10/30/2025 Telephone [facility] [address] [place] [address] Evi Thomson MD Nurse Triage 10/29/2025 10:30 AM EST Office Visit [facility] [address] [place] [address] Ada Allison, AUDITOR TAX Upper respiratory tract infection, unspecified type (Primary Dx); Sore throat (viral); Myalgia; Other chest pain; Shortness of breath; Acute bacterial conjunctivitis of both eyes 10/29/2025 Travel 09/28/2025 Telephone [facility] [address] [place] [phone] Evi Thomson MD recall 09/19/2025 Orders Only GENERIC EXTERNAL DATA DEPARTMENT Provider, Generic External Data 09/17/2025 Refill [facility] [address] [place] [phone] Evi Thomson MD Pure hypercholesterolemia 09/11/2025 Telephone [facility] [address] [place] [phone] Evi Thomson MD Med Refill 09/10/2025 Refill [facility] [address] [place] [phone] Norma Avitia DO Allergic rhinitis due to other allergic trigger, unspecified seasonality 09/10/[address] [address] Evi Thomson MD Pure hypercholesterolemia 08/22/2025 Patient Outreach [facility] [address] [place] [phone] Evi Thomson MD Medicare Annual Wellness Visit Initial (Annual wellness visit unscheduled) 08/17/2025 10:30 AM EDT Office Visit [address] [address] Evi Thomson MD Major depressive disorder in remission, unspecified whether recurrent (CMS/HCC) (Primary Dx); PTSD (post-traumatic stress disorder); Lateral epicondylitis of left elbow; Benign hypertension; Encounter for immunization 08/17/2025 Travel 08/16/[address] [address] Evi Thomson MD Chart Prep 08/14/[address] [address] Margarita Reyes MD 08/09/2025 Patient Outreach [address] [address] Eiv Thomson MD Pre-visit Planning ([facility] screening completed on 06/13/2025) from Last 3 Months Immunizations Immunization Administration [...] housing situation today? I have isidradyllan high 06/13/[address] you [...] EDT Travel History Travel Start Travel End [facility] 09/28/2025 10/16/2025 Last Filed Vital Signs Vital Sign Reading [...] Mass Index 31.21 10/29/2025 10:21 AM EST Plan of Treatment Upcoming Encounters Date Type Department Care Team (Late st Contact Info) Description 11/26/2025 9:15 AM EST Office Visit [facility] [address] [place] [phone] Evi Thomson MD [address] [place] [address] Health Maintenance Due Date Last Done Comments Alcohol/Substance Use Screening 1950 Zoster Vaccines (1 of 2) 1988 RSV Patients and Patients Aged 60 years or older (1 - 1-dose 75+ series) 2013 COVID-19 Vaccine ( season) 2025 04/04/2024, 10/17/2021, 03/20/2021, Additional history exists Diabetes: Hemoglobin A1C 12/25/20252 025, 09/06/2023, 05/06/2023, Additional history exists SDOH Screening 06/13/2026 06/13/2025 Depression Screening 07/04/2026 07/04/2025, 07/04/20 25 Tobacco Screening 10/29/2026 10/29/2025 Lipid Panel 12/25/2029 12/25/2024, 01/14, 10/01/2020 DTaP/Tdap/Td [...] 10:21 AM EST) No Valerio Sweet, Karl Procedures Procedure Name Priority Date/Time Associated Diagnosis Comments D DIMER HIGH SENSITIVITY Routine 10/30/2025 2:44 PM EST CTA CHEST PE PROTOCAL Routine 10/30/2025 2:[address] HEAD WO CONTRAST Routine 10/30/2025 2 :12 PM EST LACTIC ACID Routine 10/30/2025 12:41 PM EST NT-PROBNP Routine 10/30/2025 11:56 AM EST HIGH SENSITIVITY TROPONIN I Routine 10/30/2025 11:56 AM EST MAGNESIUM Routine 10/30/2025 11:56 AM EST BASIC METABOLIC PANEL Routine 10/30/2025 11:56 AM EST HEPATIC FUNCTION PANEL Routine 10/30/2025 11:56 AM EST CBC WITH AUTO DIFFERENTIAL Routine 10/30/2025 11:56 AM EST SARS COV2/INFLUENZA A/B AND RSV RNA QL NAAT Routine 10/30/2025 11:56 AM EST XR CHEST 1 VIEW Routine 10/30/2025 11:55 AM EST XR CHEST 2 VIEWS Routine 10/29/2025 12:3 0 PM EST Other chest pain POCT INFLUENZA B (ID NOW RAPID MOLECULAR) Routine 10/29/2025 10:31 AM EST Sore throat (viral) POC HUGGINS ID NOW STREP A Routine 10/29/2025 10:25 AM EST Sore throat (viral) POCT INFLUENZA A (ID NOW RAPID MOLECULAR) Routine 10/29/2025 10:25 AM EST Sore throat (viral) POCT RAPID COVID ANTIGEN Routine 10/29/2025 10:25 AM EST Sore throat (viral) BASIC METABOLIC PANEL Routine 09/19/2025 8:06 AM EST LIPID PANEL, STANDARD Routine 12/25/2024 10:29 AM EST Prediabetes Primary hypertension POCT GLYCATED HEMOGLOBIN, TOTAL Routine 12/25/2024 10:18 AM EST Prediabetes from Last 3 Months or Most Recently Relevant to Health Maintenance Results * D Dimer High Sensitivity (10/30/2025 2:44 PM EST) D Dimer High Sensitivity 327 NG/ML [facility] Comment:D-DIMER HS REFERENCE RANGENote: Our assay reports D-Dimer Units (D- DU).The cut-off value for venous thromboembolic (VTE) disease is230 ng/mL. This value has a very high negative predictivevalue when the patient has a low to moderate clinicalprobability of VTE.The upper limit of normal is 243 ng/mL. 10/30/2025 2:44 PM EST 10/30/2025 2:49 PM EST us Generic External Data Provider LAB BLOOD ORDERAB LES Final Result Performing Organization Address City/State/[facility] Co de Phone Number [facility] [address] [place] [phone] * CTA Chest PE Protocal (10/30/2025 2:12 PM EST) Anatomical Region Laterality Modality Body, Chest Computed Tomogra phy 10/30/2025 2:12 PM EST Narrative 10/30/2025 3:06 PM EST [address] [address] [address] Scan Report Signed Patient: Linda Carranza MR# : [id number] : 1940 Acct:[id number] Age/Sex: 84 / F ADM Date: 10/30/25 Loc: HO.ED Attending Dr: Ordering Physician: Ayde Lund Date of Service: 10/30/25 Procedure(s): CT angio chest PE protocol Accession Number(s): [id number] cc: Evi Thomson MD; Ayde Lund Report Number: [id number]: Total DLP = 0.00 mGy-cm Reason for Exam: chest pain, cough, recent flight EXAMINATION: CT ANGIOGRAM CHEST CLINICAL INFORMATION: Chest pain, cough, increased slightly. COMPARISON: Chest x-ray dated earlier same day. No prior chest CT. TECHNIQUE: Multiple axial images were obtained through the chest after the administration of 50 mL of Omnipaque 350 intravenous contrast. Extensive vascular post-processing including two-dimensional and three-dimensional reformatted images were created and reviewed on an independent workstation. This CT examination was performed using dose optimization techniques as appropriate, variously including the following: *Automated exposure control *Adjustment of mA and/or kV according to patient size (this includes techniques or standardized protocols for targeted exams where dose is matched to indication/reason for exam; i.e. extremities or head) *Use of iterative reconstruction technique FINDINGS: VASCULAR: There is adequate opacification of the pulmonary arteries with contrast. There is limitation due to respiratory motion degradation, particularly in the lower lungs. This significantly limits the sensitivity of the study. No definite pulmonary arterial filling defect is identified within these confines. Cannot exclude subsegmental embolic disease in the lower lobe distribution due to motion. Main pulmonary artery/pulmonary trunk is mildly prominent, although not pathologically enlarged. There is no right heart strain pattern. There is some reflux of contrast into the hepatic veins, suggesting possible right heart failure. The aorta is normal in caliber and contour without evidence of acute aortic syndrome or aneurysm. There is a 2 vessel branching pattern. The heart is mildly enlarged. There is calcification of the mitral annulus. There is no pericardial effusion of significance. LUNGS: Within the confines of respiratory motion artifact, there is mild dependent subpleural atelectasis in the bilateral lower lobes. There is no segmental consolidation or definitive pneumonia identified. There is no interstitial abnormality. There is mild thickening of the small airways suggesting bronchitis, either acute or chronic. The central airways are patent. There is no pleural effusion or pneumothorax. No pulmonary nodule or mass within the confines of motion. PLEURA: There is no pleural effusion. No pleural mass or thickening. MEDIASTINUM: There is severe enlargement of the thyroid, which extends caudally to the sternal notch. There are multiple nodules and calcifications contained within. There is no mediastinal mass or abnormal lymphadenopathy present. The esophagus is nondilated. The central airways are patent. Partial expiratory appearance. AXILLA/CHEST WALL: No lymphadenopathy or mass. UPPER ABDOMEN: Contrast reflux into the hepatic veins, suggesting possible increased right heart pressures. There is mild hyperplasia of the left adrenal. Otherwise, imaged upper abdominal contents appear normal. OSSEOUS STRUCTURES: No suspicious lytic or blastic bone lesion present. There are mild to moderate degenerative changes throughout the spine. CT/CT angio chest PE protocol IMPRESSION: 1. Respiratory motion degraded examination. Within these confines, there is no central or segmental pulmonary embolus. Cannot exclude subsegmental emboli in the lower lobe distributions due to motion. 2. Within the confines of respiratory motion, the lungs appear clear. There is diffuse thickening of the small airways suggesting bronchitis/inflammatory airways disease. 3. There is mild cardiac enlargement. 4. Multinodular goiter. 5. Additional ancillary findings as discussed in the body of the report. Electronically signed by: Blue Suero MD 10/30/2025 03:03 PM [facility] Dictated By: Blue Suero MD Signed By: <Electronically signed by Blue Suero MD in OV> 10/30/25 1503 DD/ 1412 TD/TT: 10/30/25 1435 Body Hanger: Procedure Note Donotuseinterpreter, Image - 10/30/[address] [place] [address] [address] Scan Report Signed Patient: Linda CarranzaMR# : [id number] : 9Acct:[id number] Age/Sex: 84 / FADM Date: 10/30/25 Loc: .ED Attending Dr: Ordering Physician: Ayde Lund Date of Service: 10/30/25 Procedure(s): CT angio chest PE protocol Accession Number(s): [id number] cc: Evi Thomson MD; Ayde Lund Report Number: [id number]: Total DLP = 0.00 mGy-cm Reason for Exam: chest pain, cough, recent flight EXAMINATION: CT ANGIOGRAM CHEST CLINICAL INFORMATION: Chest pain, cough, increased slightly. COMPARISON: Chest x-ray dated earlier same day. No prior chest CT. TECHNIQUE: Multiple axial images were obtained through the chest after the administration of 50 mL of Omnipaque 350 intravenous contrast. Extensive vascular post-processing including two-dimensional and three-dimensional reformatted images were created and reviewed on an independent workstation. This CT examination was performed using dose optimization techniques as appropriate, variously including the following: *Automated exposure control *Adjustment of mA and/or kV according to patient size (this includes techniques or standardized protocols for targeted exams where dose is matched to indication/reason for exam; i.e. extremities or head) *Use of iterative reconstruction technique FINDINGS: VASCULAR: There is adequate opacification of the pulmonary arteries with contrast. There is limitation due to respiratory motion degradation, particularly in the lower lungs. This significantly limits the sensitivity of the study. No definite pulmonary arterial filling defect is identified within these confines. Cannot exclude subsegmental embolic disease in the lower lobe distribution due to motion. Main pulmonary artery/pulmonary trunk is mildly prominent, although not pathologically enlarged. There is no right heart strain pattern. There is some reflux of contrast into the hepatic veins, suggesting possible right heart failure. The aorta is normal in caliber and contour without evidence of acute aortic syndrome or aneurysm. There is a 2 vessel branching pattern. The heart is mildly enlarged. There is calcification of the mitral annulus. There is no pericardial effusion of significance. LUNGS: Within the confines of respiratory motion artifact, there is mild dependent subpleural atelectasis in the bilateral lower lobes. There is no segmental consolidation or definitive pneumonia identified. There is no interstitial abnormality. There is mild thickening of the small airways suggesting bronchitis, either acute or chronic. The central airways are patent. There is no pleural effusion or pneumothorax. No pulmonary nodule or mass within the confines of motion. PLEURA: There is no pleural effusion. No pleural mass or thickening. MEDIASTINUM: There is severe enlargement of the thyroid, which extends caudally to the sternal notch. There are multiple nodules and calcifications contained within. There is no mediastinal mass or abnormal lymphadenopathy present. The esophagus is nondilated. The central airways are patent. Partial expiratory appearance. AXILLA/CHEST WALL: No lymphadenopathy or mass. UPPER ABDOMEN: Contrast reflux into the hepatic veins, suggesting possible increased right heart pressures. There is mild hyperplasia of the left adrenal. Otherwise, imaged upper abdominal contents appear normal. OSSEOUS STRUCTURES: No suspicious lytic or blastic bone lesion present. There are mild to moderate degenerative changes throughout the spine. CT/CT angio chest PE protocol IMPRESSION: 1. Respiratory motion degraded examination. Within these confines, there is no central or segmental pulmonary embolus. Cannot exclude subsegmental emboli in the lower lobe distributions due to motion. 2. Within the confines of respiratory motion, the lungs appear clear. There is diffuse thickening of the small airways suggesting bronchitis/inflammatory airways disease. 3. There is mild cardiac enlargement. 4. Multinodular goiter. 5. Additional ancillary findings as discussed in the body of the report. Electronically signed by: Blue Suero MD 10/30/2025 03:03 PM EST Dictated By: Blue Suero MD Signed By: <Electronically signed by Blue Suero MD in OV> 10/30/25 1503 DD/ 1412 TD/TT: 10/30/25 1435 Body Hanger: [facility] External Provider IMG CT PROCEDURES Edited Result - Final * CT Head w/o Contrast (10/30/2025 2:12 PM EST) Anatomical Region Laterality Modality Head, Neck Computed Tomogra phy 10/30/2025 2:12 PM EST Narrative 10/30/2025 2:48 PM EST [place] [address] CT Scan Report Signed Patient: Linda Carranza MR# : [id number] : 1940 Acct:[id number] Age/Sex: 84 / F ADM Date: 10/30/25 Loc: .ED Attending Dr: Ordering Physician: Ayde Lund Date of Service: 10/30/25 Procedure(s): CT head/brain wo IV con Accession Number(s): [id number] cc: Evi Thomson MD; Ayde Lund Report Number: [id number]: Total DLP = 910.00 mGy-cm Reason for Exam: severe HAs and dizziness EXAMINATION: CT HEAD WITHOUT CONTRAST CLINICAL INFORMATION: Severe headaches and dizziness. 84-year-old female. COMPARISON: 07/19/2023. MRI brain 11/26/2024. TECHNIQUE: Contiguous axial imaging was performed from the skull base to vertex without intravenous administration of contrast. This CT examination was performed using dose optimization techniques as appropriate, variously including the following: *Automated exposure control *Adjustment of mA and/or kV according to patient size (this includes techniques or standardized protocols for targeted exams where dose is matched to indication/reason for exam; i.e. extremities or head) *Use of iterative reconstruction technique FINDINGS: There is no evidence of intracranial hemorrhage or extra-axial fluid collection. There is no mass effect, or edema. No CT evidence of acute territorial infarct. Ventricles, sulci, and cisterns are normal in size and configuration for patient age. No hydrocephalus. No midline shift. Negative hyperdense MCA sign. Negative insular ribbon sign. Patchy periventricular and deep white matter hypoattenuation is consistent with mild small vessel ischemic changes. Normal pituitary. Mild atheromatous calcification of the bilateral carotid siphons and V4 segments vertebral arteries bilaterally. Globes and orbital contents image normally. There are bilateral lens replacements. No extracranial soft tissue abnormalities. Near-complete opacification of the right maxillary sinus is present, with a dependent calcification present, likely indicating chronicity. Only a tiny amount of the antrum is aerated. There is mild mucosal thickening seen in the left maxillary sinus and throughout the ethmoid air cells. No suspicious bony abnormalities. There are no acute fractures evident. There are degenerative changes in both TM joints. CT/CT head/brain wo IV con IMPRESSION: 1. No acute intracranial abnormality. 2. Paranasal sinus disease, most significant in the right maxillary sinus where there is near complete opacification. This is likely acute. Electronically signed by: Blue Suero MD 10/30/2025 02:45 PM [facility] Dictated By: Blue Suero MD Signed By: <Electronically signed by Blue Suero MD in OV> 10/30/25 1445 DD/ 1412 TD/TT: 10/30/25 1435 Body Hanger: Procedure Note Donotuseinterpreter, Image - 10/30/[address] [address] [address] Scan Report Signed Patient: Linda CarranzaMR# : [id number] : 9Acct:[id number] Age/Sex: 84 / FADM Date: 10/30/25 Loc: HO.ED Attending Dr: Ordering Physician: Ayde Lund Date of Service: 10/30/25 Procedure(s): CT head/brain wo IV con Accession Number(s): [id number] cc: Evi Thomson MD; Ayde Lund Report Number: [id number]: Total DLP = 910.00 mGy-cm Reason for Exam: severe HAs and dizziness EXAMINATION: CT HEAD WITHOUT CONTRAST CLINICAL INFORMATION: Severe headaches and dizziness. 84-year-old female. COMPARISON: 07/19/2023. MRI brain 11/26/2024. TECHNIQUE: Contiguous axial imaging was performed from the skull base to vertex without intravenous administration of contrast. This CT examination was performed using dose optimization techniques as appropriate, variously including the following: *Automated exposure control *Adjustment of mA and/or kV according to patient size (this includes techniques or standardized protocols for targeted exams where dose is matched to indication/reason for exam; i.e. extremities or head) *Use of iterative reconstruction technique FINDINGS: There is no evidence of intracranial hemorrhage or extra-axial fluid collection. There is no mass effect, or edema. No CT evidence of acute territorial infarct. Ventricles, sulci, and cisterns are normal in size and configuration for patient age. No hydrocephalus. No midline shift. Negative hyperdense MCA sign. Negative insular ribbon sign. Patchy periventricular and deep white matter hypoattenuation is consistent with mild small vessel ischemic changes. Normal pituitary. Mild atheromatous calcification of the bilateral carotid siphons and V4 segments vertebral arteries bilaterally. Globes and orbital contents image normally. There are bilateral lens replacements. No extracranial soft tissue abnormalities. Near-complete opacification of the right maxillary sinus is present, with a dependent calcification present, likely indicating chronicity. Only a tiny amount of the antrum is aerated. There is mild mucosal thickening seen in the left maxillary sinus and throughout the ethmoid air cells. No suspicious bony abnormalities. There are no acute fractures evident. There are degenerative changes in both TM joints. CT/CT head/brain wo IV con IMPRESSION: 1. No acute intracranial abnormality. 2. Paranasal sinus disease, most significant in the right maxillary sinus where there is near complete opacification. This is likely acute. Electronically signed by: Blue Suero MD 10/30/2025 02:45 PM EST Dictated By: Blue Suero MD Signed By: <Electronically signed by Blue Suero MD in OV> 10/30/25 1445 DD/ 1412 TD/TT: 10/30/25 1435 Body Hanger: [facility] External Provider IMG CT PROCEDURES Edited Result - Final * Lactic Acid (10/30/2025 12:41 PM EST) Pathologist [facility] Lactic Acid 1.0 0.5 - 2.0 mmol/L [facility] [facility] 10/30/2025 12:4 1 PM EST 10/30/2025 12:52 PM EST Generic External Data Provider LAB BLOOD ORDERAB LES Final Result Performing Organization Address City/[facility]/ZIP Co de Phone Number [facility] [address] [place] [phone] * High Sensitivity Troponin I (10/30/2025 11:56 AM EST) [facility] TROPONIN I HIGH SENSITIVITY 5.7 <3.5 - 17.0 ng/L [facility] Comment:The Huggins high sens itivity Troponin-I results should beused in conjunction with other diagnostic information suchas ECG, clinical observations and information, and patientsymptoms to aid in the diagnosis of NE. 10/30/2025 11:5 6 AM EST 10/30/2025 12:00 PM EST Generic External Data Provider LAB BLOOD ORDERAB LES Final Result Performing Organization Address City/[facility]/ZIP Co de Phone Number [facility] [address] [place] [address] [phone] * SARS-CoV-2 RNA, Influenza A/B, and RSV RNA, Ql NAAT (10/30/2025 11:56 AM EST) Pathologist [facility] Influenza A PCR NEGATIVE Negative [facility] Influenza B PCR NEGATIVE Negative [facility] Resp Syncy Virus RNA Qual PCR NEGATIVE Negative [facility] SARS COV2 PCR NEGATIVE Negative [facility] Comment:All test results mus t be correlated with clinical findings.Negative results do not preclude SARS-CoV2, influenza Avirus, influenza B virus and/or RSV infectionand should not be used as the sole basis for treatment orother patient management decisions. Negative results must becombined with clinical observations, patient history, andepidemiological information.This test has not been evaluated for monitoring treatment ofinfection.This test has been authorized by the FDA under an EmergencyUse Authorization (EUA) for use by authorized laboratories.Testing performed on the [employer] GeneXpert utilizingreal-time RT-PCR.All SARS CoV2 and positive influenza A/B results arereported to [facility]. 10/30/2025 11:5 6 AM EST 10/30/2025 12:00 PM EST Generic External Data Provider LAB MICROBIOLOGY - GENERAL ORDERABLES Final Result [facility] [address] [place] [address] [phone] * (ABNORMAL) NT-proBNP (10/30/2025 11:56 AM EST) NT-proBNP 356.2(H) <300 pg/mL [facility] Comment:Reference Range:Age Group (years) NT-proBNP (pg/ml) InterpretationAll <300 Negative: HF unlikelyFor patients presenting to the ED with clinical suspicion ofnew onset or worsening HF, see below:18 to <50 >299.9 to <450.0 Grayzone: Juztzibq29 to 75 >299.9 to <900.0 other causes of>75 >299.9 to <1800.0 NT-proBNP nofjcmeaq72 to <50 >449.9 Positive: HF enejla43-34 >899.9>75 >1799.9Note: Elevated NT-proBNP levels should be interpreted inthe context of other clinical information. 10/30/2025 11:5 6 AM EST 10/30/2025 12:00 PM EST us Generic External Data Provider LAB BLOOD ORDERAB LES Final Result [facility] [address] [place] [address] [phone] * (ABNORMAL) CBC auto differential (10/30/2025 11:56 AM EST) White Blood Count 7.8 4.8 - 10.8 X10*3/uL [facility] Red Blood Count 4.54 4.20 - 5.50 X10*6/uL [facility] Hemoglobin 11.9(L) 12.0 - 16.0 g/dl [facility] Hematocrit 37.7 37.0 - 47.0 % [facility] Mean Corpuscular Volume 83.0 80.0 - 98.0 fL [facility] Mean Corpuscular Hemoglobin 26.2(L) 27.0 - 33.0 pg [facility] Mean Corpuscular HGB Conc 31.6 31.0 - 35.0 g/dl [facility] Red Cell Distribution Width 14.2 11.0 - 16.0 % [facility] Platelet Count 184 160 - 400 X10*3/uL [facility] Mean Platelet Volume 10.8 9.4 - 12.3 fL [facility] Neutrophils Percent Auto 65.8 45 - 73 % [facility] Imm Gran Pct Auto 0.3 0.0 - 0.4 % [facility] Lymphocytes Percent Auto 20.0 20 - 40 % [facility] Monocytes Percent Auto 12.1(H) 2 - 11 % [facility] Eosinophils Percent Auto 1.3 0 - 4 % [facility] Basophils Percent Auto 0.5 0 - 2 % [facility] NRBC Pct Auto 0.0 0.0 - 0.2 /100WBC [facility] Neutrophils Absolute Auto 5.1 2.0 - 8.3 x10*3/uL [facility] Imm Gran Abs Auto 0.02 0.00 - 0.03 X10*3/uL [facility] Lymphocytes Absolute Auto 1.6 1.2 - 4.9 X10*3/uL [facility] Monocytes Absolute Auto 0.9 0.1 - 1.2 X10*3/uL [facility] Eosinophils Absolute Auto 0.1 0.0 - 0.4 X10*3/uL [facility] Basophils Absolute Auto 0.0 0.0 - 0.2 X10*3/uL [facility] NRBC Abs Auto 0.000 0.0 - 0.012 X10*3/uL [facility] 10/30/2025 11:5 6 AM EST 10/30/2025 12:00 PM EST Generic External Data Provider LAB BLOOD ORDERAB LES Final Result Performing Organization Address [facility]/ZIP Co de Phone Number [facility] [address] [place] [phone] * Magnesium (10/30/2025 11:56 AM EST) Magnesium 2.1 1.6 - 2.6 mg/dL [facility] 10/30/2025 11:5 6 AM EST 10/30/2025 12:00 PM EST Generic External Data Provider LAB BLOOD ORDERAB LES Final Result Performing Organization Address City/[facility] Co de Phone Number [facility] [address] [place] [phone] * Hepatic Function Panel (10/30/2025 11:56 AM EST) Bilirubin, Total 0.9 0.0 - 1.0 mg/dL [facility] Bilirubin, Direct 0.3 0.0 - 0.5 mg/dL [facility] Aspartate Amino Transferase 19 5 - 31 U/L [facility] Alanine Aminotransferase 11 0 - 31 U/L [facility] Total Protein 7.4 6.5 - 8.0 g/dL [facility] Albumin Level 3.8 3.5 - 5.0 g/dL [facility] Alkaline Phosphatase 75 39 - 117 U/L [facility] 10/30/2025 11:5 6 AM EST 10/30/2025 12:00 PM EST us Generic External Data Provider LAB BLOOD ORDERAB LES Final Result Performing Organization Address [facility] Co de Phone Number [facility] [address] [place] [address] [phone] * (ABNORMAL) Basic Metabolic Panel (10/30/2025 11:56 AM EST) Only the most recent of2 resultswithin the time period is included. Sodium 137 135 - 145 mmol/L [facility] Potassium 4.5 3.3 - 5.1 mmol/L [facility] Chloride 105 96 - 108 mmol/L [facility] Carbon Dioxide 26 22 - 29 mmol/L [facility] Anion Gap 11(L) 12 - 20 [facility] Urea Nitrogen (BUN) 18(H) 9 - 16 mg/dL [facility] Creatinine, Serum 1.08 0.5 - 1.4 mg/dL [facility] Creatinine Clr Calc Pharmacy TNP [facility] Comment:Unable to calculate eCrCL; all parameters not provided. Estimated Glomerular Filt Rate 48 [facility] Comment:Chronic Kidney Disea se: Estimated GFR < 60 mL/min/1.72w7Xhqoge Kidney Disease: Estimated GFR < 15 mL/min/1.73m2 Glucose 151(H) 60 - 115 mg/dL [facility] Calcium 9.0 8.4 - 10.2 mg/dL [facility] 10/30/2025 11:5 6 AM EST 10/30/2025 12:00 PM EST us Generic External Data Provider LAB BLOOD ORDERAB LES Final Result Performing Organization Address City/[facility]/ZIP Co de Phone Number [facility] [address] [place] [phone] * XR Chest 1 View (10/30/2025 11:55 AM EST) Anatomical Region Laterality Modality Chest Radiographic Camille ging 10/30/2025 11:5 5 AM EST Narrative 10/30/2025 12:20 PM EST [address] [address] XRay Report Signed Patient: Linda Carranza MR# : [id number] : 1940 Acct:[id number] Age/Sex: 84 / F ADM Date: 10/30/25 Loc: HO.ED Attending Dr: Ordering Physician: Ashley Cevallos DO Date of Service: 10/30/25 Procedure(s): XR chest 1V Accession Number(s): [id number] cc: Evi Thomson MD; Ashley Cveallos DO Reason for Exam: chest pain EXAMINATION: XR CHEST CLINICAL INFORMATION: chest pain COMPARISON: 10/29/2025. TECHNIQUE: Frontal view of the chest was obtained. FINDINGS: Mildly eventrated right hemidiaphragm, unchanged. The cardiac, hilar, and mediastinal contours are normal. The lungs are clear bilaterally. No pneumothorax or effusion. No focal osseous or soft tissue abnormality. There are degenerative changes throughout the spine. XR/XR chest 1V IMPRESSION: No active pulmonary disease. Electronically signed by: Blue Suero MD 10/30/2025 12:18 PM EST Dictated By: Blue Suero MD Signed By: <Electronically signed by Blue Suero MD in OV> 10/30/25 1218 DD/ 1155 TD/TT: 10/30/25 1200 Body Hanger: Procedure Note Donotuseinterpreter, Image - 10/30/[address] [address] XRay Report Signed Patient: Linda CarranzaMR# : [id number] : 1940cct:[id number] Age/Sex: 84 / FADM Date: 10/30/25 Loc: HO.ED Attending Dr: Ordering Physician: Ashley Cevallos DO Date of Service: 10/30/25 Procedure(s): XR chest 1V Accession Number(s): [id number] cc: Evi Thomson MD; Ashley Cevallos DO Reason for Exam: chest pain EXAMINATION: XR CHEST CLINICAL INFORMATION: chest pain COMPARISON: 10/29/2025. TECHNIQUE: Frontal view of the chest was obtained. FINDINGS: Mildly eventrated right hemidiaphragm, unchanged. The cardiac, hilar, and mediastinal contours are normal. The lungs are clear bilaterally. No pneumothorax or effusion. No focal osseous or soft tissue abnormality. There are degenerative changes throughout the spine. XR/XR chest 1V IMPRESSION: No active pulmonary disease. Electronically signed by: Blue Suero MD 10/30/2025 12:18 PM EST Dictated By: Blue Suero MD Signed By: <Electronically signed by Blue Suero MD in OV> 10/30/25 1218 DD/ 1155 TD/TT: 10/30/25 1200 Body Hanger: [facility] External Provider IMG XR PROCEDURES Edited Result - Final * XR Chest 2 Views (10/29/2025 12:30 PM EST) Anatomical Region Laterality Modality Chest Radiographic Camille ging 10/29/2025 12:3 0 PM EST Narrative 10/29/2025 12:58 PM EST [address] [address] XRay Report Signed Patient: Linda Carranza MR# : [id number] : 1940 Acct:[id number] Age/Sex: 84 / F ADM Date: 10/29/25 Loc: HO.HHCX Attending Dr: Ada CARSON Ordering Physician: Ada Allison Date of Service: 10/29/25 Procedure(s): XR chest 2V Accession Number(s): [id number] cc: Linda Vargas MD; Ada Allison Reason [...] 10/29/25 1255 DD/ 1230 TD/TT: 10/29/25 1232 Body Hanger: Procedure Note Donotuseinterpreter, Image - 10/29/2025 [place] [address] XRay Report Signed Patient: Linda CarranzaMR# : [id number] : 9Acct:[id number] Age/Sex: 84 / FADM Date: 10/29/25 [facility]: Ada CARSON Ordering Physician: Ada Allison Date of Service: 10/29/25 Procedure(s): XR chest 2V Accession Number(s): [id number] cc: Linda Vargas MD; Ada Allison Reason [...] 10/29/25 1255 DD/ 1230 TD/TT: 10/29/25 1232 Body Hanger: us Ada Okhipo AUDITOR TAX IMG XR PROCEDURES Final Result * POCT Rapid Influenza B HUGGINS ID NOW (10/29/2025 10:31 AM EST) Influenza B Negative Negative, Indeterminate [facility] QC Media Lot # [id number] [facility] Lot# Expiration Date [facility] Swab 10/29/2025 10:3 1 AM EST us Ada Okhipo AUDITOR TAX POINT OF CARE TEST ENTER/EDIT ORDERABLES Final Result Performing Organization Address [facility] Co de Phone Number [facility] [address] [place] [phone] * POCT Rapid Influenza A HUGGINS ID NOW (10/29/2025 10:25 AM EST) Influenza A Negative Negative, Indeterminate [facility] QC Media Lot # [id number] [facility] Lot# Expiration Date [facility] Swab 10/29/2025 10:2 5 AM EST us Ada Okhipo AUDITOR TAX POINT OF CARE TEST ENTER/EDIT ORDERABLES Final Result Performing Organization Address City/[facility] Co de Phone Number [facility] [address] [place] [phone] * POCT Rapid Strep A HUGGINS ID NOW (10/29/2025 10:25 AM EST) [facility] Rapid Strep A Screen Negative Negative, None Detected QC Media Lot # [id number] Lot# Expiration Date [id number] Swab 10/29/2025 10:2 5 AM EST Ada Okhipo AUDITOR TAX POINT OF CARE TEST ENTER/EDIT ORDERABLES Final Result * POCT Rapid Covid-19 BinaxNOW (10/29/2025 10:25 AM EST) [facility] Rapid COVID Ag Negative [facility] QC Media Lot # [id number] [facility] Lot# Expiration Date ,026 [facility] Swab 10/29/2025 10:2 5 AM EST Ada Okhipo AUDITOR TAX POINT OF CARE TEST ENTER/EDIT ORDERABLES Final Result Performing Organization Address [facility]/ZIP Co de Phone Number [facility] [address] [place] [phone] * (ABNORMAL) Lipid Panel, Standard (12/25/2024 10:29 AM EST) [facility] Triglycerides 322(H) <150 mg/dL [facility] Comment:Slight Lipemia.Amber able Triglyceride: less than 150 mg/dLBorderline High Triglyceride 150-199 mg/dLHigh Triglyceride: 200-499 mg/dLVery High Triglyceride: greater than or equal to 5OO mg/dL Cholesterol 123 <200 mg/dL [facility] Comment:Desirable Cholestero l: less than 200 mg/dLBorderline High Cholesterol: 200-239 mg/dLHigh Cholesterol: greater than 239 mg/dL LDL Cholesterol Calculated 27 <100 mg/dL [facility] Comment:Desirable LDL: less than 100 mg/dLNear Optimal/Above Optimal LDL: 110- 129 mg/dLBorderline High LDL: 130-159 mg/dLHigh LDL: 160-189 mg/dLVery High LDL: greater than or equal to 190 mg/dL HDL Cholesterol 32(L) >40 mg/dL [facility] Comment:Desirable HDL: great er than 40 mg/dL Note: This HDL assay may give artificially low results in patients with liver disease. Blood Venous blood specimen / Unknown 12/25/2024 10:29 AM EST 12/25/2024 1:59 PM EST Duyen Schwab MD LAB BLOOD ORDERABLES Final Resul t [facility] [address] [place] [phone] * (ABNORMAL) POCT A1C (12/25/2024 10:18 AM EST) Hemoglobin A1C 5.8 4.0 - 6.0 % QC Media Lot # Comment:[id number] Lot# Expiration Date Comment:09/01/2026 Blood 12/25/2024 10:1 8 AM EST Duyen Schwab MD POINT OF CARE TEST ENTER/EDIT OR DERABLES Final Result from Last 3 Months or Most Recently Relevant to Health Maintenance Insurance [facility] STANDARD MEDICARE Care Teams Senior Control Systems Engineer Relationship Specialty Start Date End Date Evi Thomson MD [address] [place] [address] PCP - General Family Medicine 03/13/19 Valerio Sweet, Karl [address] [place] [address] Pharmacist Internal Medicine 11/02/22 Olimpia A 05/17/25
--- OUTSIDE RECORDS SUMMARY | 2025-10-30 16:23 | XMS_ITS | Encounter Summary ---
Author Organization [employer] Address [address] [facility] [address] [place] [address] Care Team Providers Care Obiee Consultant Name Role Phone Evi Thomson MD Primary Care Provider + Valerio Sweet PharmD Unavailable [phone] Reason for Visit * Reason Comments Med Refill Encounter Details Date Type Department Care Team ([facility] st Contact Info) Description 07/05/2024 Refill [facility]INE [address] [place], [place] [phone] Evi Thomson MD [address] [place], [place] [phone] Allergic rhinitis due to other allergic trigger, [...] Description 11/26/2025 9:15 AM EST Office Visit [facility] [address] [place] [phone] Evi Thomson MD [address] [place] [phone] documented as of this encounter Goals Goal Patient Goal Type Associated Problems Recent Progress Patient-Stated? Author Blood Pressure < 140/90 Blood Pressure 138/66( 025 10:21 AM EST) No Valerio Sweet PharmD documented as of this encounter Visit Diagnoses Diagnosis Allergic rhinitis due to other allergic trigger, unspecified seasonality documented in this encounter Care Teams Obiee Consultant Relationship Specialty Start Date End Date Evi Thomson MD [address] [place] [phone] PCP - General Family Medicine 03/13/19 Valerio Sweet PharmD [address] [place] [phone] Pharmacist Internal Medicine 11/02/22 [facility] 05/17/25 documented as of this encounter
--- OUTSIDE RECORDS SUMMARY | 2025-10-30 16:23 | XMS_ITS | Encounter Summary ---
Author Organization [employer] Address [address] [facility] 7t [place] [address] Care Team Providers Care Retail Sales Merchandiser Development Name Role Phone Evi Thomson MD Primary Care Provider + Valerio Sweet PharmD Unavailable [phone] Reason for Visit * Reason Onset Date Comments pre op 12/05/2024 Encounter Details Date Type Department Care Team ([facility] st Contact Info) Description 12/05/2024 Telephone [facility] MEDICINE [address] [place], [place] [phone] Evi Thomson MD [address] [place], [place] [phone] pre op Social History Tobacco Use Types [...] EDT Travel History Travel Start Travel End [facility] 09/28/2025 10/16/2025 documented as of this encounter Miscellaneous Notes * Telephone Encounter - Dinora Rodriguez - 12/06/2024 10:38 AM EST Facility agreed to pre op appointment on 12/22/24 with [place]. Appointment reminder letter mailed * Telephone Encounter - Himanshu Nolen - 12/05/2024 2:43 PM EST Date of Surgery: 12/29 Surgical procedure being done: Bilateral Upper Eyelid Surgery and Muscle Surgery Type of anesthesia: MAC Lab needed: Yes EKG: Yes Surgeon's name: Facility name: [facility]. Surgeon's office number: [phone] Surgeon's office fax number: [phone] Contact name (person you spoke with): Ness Last office note from surgeon requested: No Send Message to Dinora Rodriguez and Kevin Woods documented in this encounter Plan of Treatment Upcoming Encounters Date Type Department Care Team ([facility] st Contact Info) Description 11/26/2025 9:15 AM EST Office Visit [facility] MEDICINE [address] [place] [phone] Evi Thomson MD [address] [place] [address] documented as of this encounter Goals Goal Patient Goal Type Associated Problems Recent Progress Patient-Stated? Author Blood Pressure < 140/90 Blood Pressure 138/66( 025 10:21 AM EST) No Valerio Sweet, PharmMckenna documented as of this encounter Visit Diagnoses Not on filedocumented in this encounter Care Teams Retail Sales Merchandiser Development Relationship Specialty Start Date End Date Evi Thomson MD [address] [place] [address] PCP - General Family Medicine 03/13/19 Valerio Sweet, PharmD [address] [place] [phone] Pharmacist Internal Medicine 11/02/22 Olimpia JOSUE 05/17/25 documented as of this encounter
--- OUTSIDE RECORDS SUMMARY | 2025-10-30 16:23 | XMS_ITS | Encounter Summary ---
Author Organization [employer] Address [address] [facility] [address] [place] [address] Care Team Providers Care Blood Donor Recruiter Supervisor Name Role Phone Evi Thomson MD Primary Care Provider + Valerio Sweet PharmD Unavailable [phone] Encounter Details Date Type Department Care Team (Late st Contact Info) Description 10/30/2025 Orders Only GENERIC EXTERNAL DATA [...] Description 11/26/2025 9:15 AM EST Office Visit [facility] [address], [place] [phone] Evi Thomson MD [address] [place], [place] [phone] documented as of this encounter Goals Goal [...] LACTIC ACID Routine 10/30/2025 12:41 PM EST HIGH SENSITIVITY TROPONIN I Routine 10/30/2025 11:56 AM EST SARS COV2/INFLUENZA A/B AND RSV RNA QL NAAT Routine 10/30/2025 11:56 AM EST NT-PROBNP Routine 10/30/2025 11:56 AM EST CBC WITH AUTO DIFFERENTIAL Routine 10/30/2025 11:56 AM EST MAGNESIUM Routine 10/30/2025 11:56 AM EST HEPATIC FUNCTION PANEL Routine 10/30/2025 11:56 AM EST BASIC METABOLIC PANEL Routine 10/30/2025 11:56 AM EST XR CHEST 1 VIEW Routine 10/30/2025 11:55 AM EST documented in this encounter Results * D Dimer High Sensitivity (10/30/2025 2:44 PM EST) D Dimer High Sensitivity 327 NG/ML [facility] Comment:D-DIMER HS REFERENCE RANGENote: Our [...] Provider LAB BLOOD ORDERAB LES Final Result [facility] [address] [place] [phone] * CTA Chest PE Protocal (10/30/2025 2:12 PM EST) Anatomical Region Laterality Modality Body, Chest Computed Tomogra phy 10/30/2025 2:12 PM EST Narrative 10/30/2025 3:06 PM EST [address] [address] [address] Scan Report Signed Patient: Linda Carranza MR# : [id number] : 1940 Acct:[id number] Age/Sex: 84 / F ADM Date: 10/30/25 Loc: HO.ED Attending Dr: Ordering Physician: Ayde Lund Date of Service: 10/30/25 Procedure(s): CT angio chest PE protocol Accession Number(s): [id number] cc: Evi Thomson MD; Ayde Lund Report Number: [id number]: Total DLP = 0.00 mGy-cm Reason for [...] by: Blue Suero MD 10/30/2025 03:[address] [facility] Dictated By: Blue Suero MD Signed By: <Electronically signed by Blue Suero MD in OV> 10/30/25 1503 DD/ 1412 TD/TT: 10/30/25 1435 Shop Tailor: Procedure Note Donotuseinterpreter, Image - 10/30/[address] [address] [address] Scan Report Signed Patient: Husam Carranza# : [id number] : 9Acct:[id number] Age/Sex: 84 / FADM Date: 10/30/25 Loc: HO.ED Attending Dr: Ordering Physician: Ayde Lund Date of Service: 10/30/25 Procedure(s): CT angio chest PE protocol Accession Number(s): [id number] cc: Evi Thomson MD; Ayde Lund Report Number: [id number]: Total DLP = 0.00 mGy-cm Reason for [...] 10/30/25 1503 DD/ 1412 TD/TT: 10/30/25 1435 Shop Tailor: [facility] External Provider IMG CT PROCEDURES Edited Result - Final * CT Head w/o Contrast (10/30/2025 2:12 PM EST) Anatomical Region Laterality Modality Head, Neck Computed Tomogra phy 10/30/2025 2:12 PM EST Narrative 10/30/2025 2:48 PM EST [address] [address] [address] Scan Report Signed Patient: Linda Carranza MR# : [id number] : 1940 Acct:[id number] Age/Sex: 84 / F ADM Date: 10/30/25 Loc: HO.ED Attending Dr: Ordering Physician: Ayde Lund Date of Service: 10/30/25 Procedure(s): CT head/brain wo IV con Accession Number(s): [id number] cc: Evi Thomson MD; Ayde Lund Report Number: [id number]: Total DLP = 910.00 mGy-cm Reason for [...] by: Blue Suero MD 10/30/2025 02:[address] [facility] Dictated By: Blue Suero MD Signed By: <Electronically signed by Blue Suero MD in OV> 10/30/25 1445 DD/ 1412 TD/TT: 10/30/25 1435 Shop Tailor: Procedure Note Donotuseinterpreter, Image - 10/30/[address] [place] [address] [address] Scan Report Signed Patient: Husam Carranza# : [id number] : 9Acct:[id number] Age/Sex: 84 / FADM Date: 10/30/25 Loc: HO.ED Attending Dr: Ordering Physician: Ayde Lund Date of Service: 10/30/25 Procedure(s): CT head/brain wo IV con Accession Number(s): [id number] cc: Evi Thomson MD; Ayde Lund Report Number: [id number]: Total DLP = 910.00 mGy-cm Reason for [...] 10/30/25 1445 DD/ 1412 TD/TT: 10/30/25 1435 Shop Tailor: [facility] External Provider IMG CT PROCEDURES Edited Result - Final * Lactic Acid (10/30/2025 12:41 PM EST) Pathologist [facility] Lactic Acid 1.0 0.5 - 2.0 mmol/L [facility] 10/30/2025 12:4 1 PM EST 10/30/2025 12:52 PM EST Generic External Data Provider LAB BLOOD ORDERAB LES Final Result [facility] [address] [place] [phone] * SARS-CoV-2 RNA, Influenza A/B, and RSV RNA, Ql NAAT (10/30/2025 11:56 AM EST) Pathologist [facility] Influenza A PCR NEGATIVE Negative [facility] Influenza B PCR NEGATIVE Negative [facility] Resp Syncy Virus RNA Qual PCR NEGATIVE Negative [facility] SARS COV2 PCR NEGATIVE Negative [facility] Comment:All test results mus t be [...] use by authorized laboratories.Testing performed on the [employer] GeneXpert utilizingreal-time RT-PCR.All SARS CoV2 and positive influenza A/B results arereported to [facility]. 10/30/2025 11:5 6 AM EST 10/30/2025 12:00 PM EST [employer] External Data Provider LAB MICROBIOLOGY - GENERAL ORDERABLES Final Result Performing Organization Address City/[facility]/ZIP Co de Phone Number [facility] [address] [place] [phone] * (ABNORMAL) NT-proBNP (10/30/2025 11:56 AM EST) NT-proBNP 356.2(H) <300 pg/mL [facility] Comment:Reference Range:Age Group (years) NT-proBNP (pg/ml) InterpretationAll <300 Negative: HF unlikelyFor patients presenting to the ED with clinical suspicion ofnew onset or worsening HF, see below:18 to <50 >299.9 to <450.0 Grayzone: [id number] to 75 >299.9 to <900.0 other causes of>75 >299.9 to <1800.0 NT-proBNP [id number] to <50 >449.9 Positive: HF -75 >899.9>75 >1799.9Note: Elevated NT-proBNP levels should be interpreted inthe context of other clinical information. 10/30/2025 11:5 6 AM EST 10/30/2025 12:00 PM EST [employer] External Data Provider LAB BLOOD ORDERAB LES Final Result [facility] [address] [place] [phone] * High Sensitivity Troponin I (10/30/2025 11:56 AM EST) [facility] TROPONIN I HIGH SENSITIVITY 5.7 <3.5 - 17.0 ng/L [facility] Comment:The Cuellar high sens itivity Troponin-I results should beused in conjunction with other diagnostic information suchas ECG, clinical observations and information, and patientsymptoms to aid in the diagnosis of IA. 10/30/2025 11:5 6 AM EST 10/30/2025 12:00 PM EST us Generic External Data Provider LAB BLOOD ORDERAB LES Final Result Performing Organization Address [facility] Phone Number [facility] [address] [place] [phone] * Magnesium (10/30/2025 11:56 AM EST) [facility] Magnesium 2.1 1.6 - 2.6 mg/dL [facility] 10/30/2025 11:5 6 AM EST 10/30/2025 12:00 PM EST Generic External Data Provider LAB BLOOD ORDERAB LES Final Result Performing Organization Address [facility] de Phone Number [facility] [address] [place] [phone] * (ABNORMAL) Basic Metabolic Panel (10/30/2025 11:56 AM EST) [facility] Sodium 137 135 - 145 mmol/L [facility] Potassium 4.5 3.3 - 5.1 mmol/L [facility] Chloride 105 96 - 108 mmol/L [facility] Carbon Dioxide 26 22 - 29 mmol/L [facility] Anion Gap 11(L) 12 - 20 [facility] Urea Nitrogen (BUN) 18(H) 9 - 16 mg/dL [facility] Creatinine, Serum 1.08 0.5 - 1.4 mg/dL [facility] Creatinine Clr Calc Pharmacy TNP [facility] Comment:Unable to calculate eCrCL; all parameters not provided. Estimated Glomerular Filt Rate 48 [facility] Comment:Chronic Kidney Disea se: Estimated GFR < 60 mL/min/[id number] Kidney Disease: Estimated GFR < 15 mL/min/1.73m2 Glucose 151(H) 60 - 115 mg/dL [facility] Calcium 9.0 8.4 - 10.2 mg/dL [facility] 10/30/2025 11:5 6 AM EST 10/30/2025 12:00 PM EST us Generic External Data Provider LAB BLOOD ORDERAB LES Final Result Performing Organization Address [facility]/ZIP Co de Phone Number [facility] [address] [place] [phone] * Hepatic Function Panel (10/30/2025 11:56 AM EST) Bilirubin, Total 0.9 0.0 - 1.0 mg/dL [facility] Bilirubin, Direct 0.3 0.0 - 0.5 mg/dL [facility] Aspartate Amino Transferase 19 5 - 31 U/L [facility] Alanine Aminotransferase 11 0 - 31 U/L [facility] Total Protein 7.4 6.5 - 8.0 g/dL [facility] Albumin Level 3.8 3.5 - 5.0 g/dL [facility] Alkaline Phosphatase 75 39 - 117 U/L [facility] 10/30/2025 11:5 6 AM EST 10/30/2025 12:00 PM EST us Generic External Data Provider LAB BLOOD ORDERAB LES Final Result Performing Organization Address City/[facility]/ZIP Co de Phone Number [facility] [address] [place] [phone] * (ABNORMAL) CBC auto differential (10/30/2025 11:56 AM EST) White Blood Count 7.8 4.8 - 10.8 X10*3/uL [facility] Red Blood Count 4.54 4.20 - 5.50 X10*6/uL [facility] Hemoglobin 11.9(L) 12.0 - 16.0 g/dl [facility] Hematocrit 37.7 37.0 - 47.0 % [facility] Mean Corpuscular Volume 83.0 80.0 - 98.0 fL [facility] Mean Corpuscular Hemoglobin 26.2(L) 27.0 - 33.0 pg [facility] Mean Corpuscular HGB Conc 31.6 31.0 - 35.0 g/dl [facility] Red Cell Distribution Width 14.2 11.0 - 16.0 % [facility] Platelet Count 184 160 - 400 X10*3/uL [facility] Mean Platelet Volume 10.8 9.4 - 12.3 fL [facility] Neutrophils Percent Auto 65.8 45 - 73 % [facility] Imm Gran Pct Auto 0.3 0.0 - 0.4 % [facility] Lymphocytes Percent Auto 20.0 20 - 40 % [facility] Monocytes Percent Auto 12.1(H) 2 - 11 % [facility] Eosinophils Percent Auto 1.3 0 - 4 % [facility] Basophils Percent Auto 0.5 0 - 2 % [facility] NRBC Pct Auto 0.0 0.0 - 0.2 /100WBC [facility] Neutrophils Absolute Auto 5.1 2.0 - 8.3 x10*3/uL [facility] Imm Gran Abs Auto 0.02 0.00 - 0.03 X10*3/uL [facility] Lymphocytes Absolute Auto 1.6 1.2 - 4.9 X10*3/uL [facility] Monocytes Absolute Auto 0.9 0.1 - 1.2 X10*3/uL [facility] Eosinophils Absolute Auto 0.1 0.0 - 0.4 X10*3/uL [facility] Basophils Absolute Auto 0.0 0.0 - 0.2 X10*3/uL [facility] NRBC Abs Auto 0.000 0.0 - 0.012 X10*3/uL [facility] 10/30/2025 11:5 6 AM EST 10/30/2025 12:00 PM EST us Generic External Data Provider LAB BLOOD ORDERAB LES Final Result Performing Organization Address City/State/[facility] Co de Phone Number [facility] [address] [place] [phone] * XR Chest 1 View (10/30/2025 11:55 AM EST) Anatomical Region Laterality Modality Chest Radiographic Camille ging 10/30/2025 11:5 5 AM EST Narrative 10/30/2025 12:20 PM EST [address] [address] XRay Report Signed Patient: Linda Carranza MR# : [id number] : 1940 Acct:[id number] Age/Sex: 84 / F ADM Date: 10/30/25 Loc: .ED Attending Dr: Ordering Physician: Ashley Cevallos DO Date of Service: 10/30/25 Procedure(s): XR chest 1V Accession Number(s): [id number] cc: Evi Thomson MD; Ashley Cevallos DO [...] 10/30/25 1218 DD/ 1155 TD/TT: 10/30/25 1200 Shop Tailor: Procedure Note Donotkaeter, Image - 10/30/[address] [address] XRay Report Signed Patient: Linda CarranzaMR# : [id number] : 9Acct:[id number] Age/Sex: 84 / FADM Date: 10/30/25 Loc: HO.ED Attending Dr: Ordering Physician: Ashley Cevallos DO Date of Service: 10/30/25 Procedure(s): XR chest 1V Accession Number(s): [id number] cc: Evi Thomson MD; Ashley Cevallos DO [...] by: Blue Suero MD 10/30/2025 12:[address] [facility] Dictated By: Blue Suero MD Signed By: <Electronically signed by Blue Suero MD in OV> 10/30/25 1218 DD/ 1155 TD/TT: 10/30/25 1200 Shop Tailor: [facility] External Provider IMG XR PROCEDURES Edited Result - Final documented in this encounter Visit Diagnoses Not on filedocumented in this encounter Additional Health Concerns Assessment Noted Time PHQ-9 Depression Total Score: 5 07/04/20 8:47 AM EDT documented as of this encounter Care Teams Blood Donor Recruiter Supervisor Relationship Specialty Start Date End Date Evi Thomson MD [address] [place] [address] PCP - General Family Medicine 03/13/19 Valerio Sweet, Karl [address] [place] [address] Pharmacist Internal Medicine 11/02/22 Olimpia A 05/17/25 documented as of this encounter
== END 2025-10-30 17:14 | disposition home or self-care (01) ==
PROVIDERS: Emergency Medicine; Physician Assistant Medical; Emergency Provider Emergency Medicine Emergency Medical Services; PCP Internal Medicine
DX: J32.0 Chronic maxillary sinusitis (principal); J40 Bronchitis, not specified as acute or chronic; R07.9 Chest pain, unspecified; R51.9 Headache, unspecified; I10 Essential (primary) hypertension; E78.5 Hyperlipidemia, unspecified; E21.3 Hyperparathyroidism, unspecified; R06.02 Shortness of breath; R05.9 Cough, unspecified; R42 Dizziness and giddiness; Z03.818 Encounter for observation for suspected exposure to other biological agents ruled out
CPT/HCPCS: 36415; 70450; 71045; 71275; 80048; 80076; 83605; 83735; 83880; 84484; 85025; 85379; 87040; 87637; 93005; 94640; 96365; 96375; 99285; J0696; J2919; Q9967

== ENCOUNTER → 2025-10-30 11:29 | Outpatient (BNV) | payer MEDICARE, MEDICAID, SELFPAY | PROVIDERS: Emergency Provider Emergency Medicine Emergency Medical Services; PCP Internal Medicine; Visit Provider Internal Medicine Cardiovascular Disease | DX: R07.9 Chest pain, unspecified (principal); R06.02 Shortness of breath | CPT/HCPCS: 93010 ==

== ENCOUNTER → 2025-10-30 11:30 | Outpatient (BNV) | payer MEDICARE, MEDICAID, SELFPAY | PROVIDERS: PCP Internal Medicine; Visit Provider Radiology Diagnostic Radiology | DX: I51.7 Cardiomegaly (principal); E04.2 Nontoxic multinodular goiter; J32.8 Other chronic sinusitis; R07.9 Chest pain, unspecified | CPT/HCPCS: 70450; 71045; 71275 ==

== ENCOUNTER 2025-11-07 10:44 | Emergency (ER) | payer MEDICARE, MEDICAID, SELFPAY ==
--- NOTE | ~2025-11-07 | US_ITS ---
EXAMINATION: US TRIPLEX UPPER EXTREMITY, RIGHT CLINICAL INFORMATION: Pain after IV blood draws. COMPARISON: None available. TECHNIQUE: Color-flow triplex imaging with spectral analysis and compression Doppler was performed on the right upper extremity. FINDINGS: The right internal jugular, subclavian, and axillary veins are patent and free of thrombus. Spectral doppler waveforms are normal. The brachial, basilic , radial, and ulnar veins are patent and compressible. The cephalic vein is not seen. US/US venous duplex UE RT IMPRESSION: No evidence of deep venous thrombosis involving the right upper extremity. The cephalic vein is not seen. Electronically signed by: Leno Hernandez MD 11/07/2025 11:38 AM EST
--- NOTE | 2025-11-07 10:50 | ED_ITS ---
HPI - General Adult General Chief complaint: Extremity Problem Stated complaint: tingling in arm Time Seen by Provider: 11/07/25 11:04 Source: patient, family and digital marketing lead (mexican) Mode of arrival: ambulatory Limitations: language barrier (mexican) History of Present Illness ED Provider: SPENCER OLIVER PA-C HPI narrative: 84 year old female with pmhx significant for arthritis, osteoporosis, HTN, HLD, hyperparathyroidism presents to the ED today for evaluation of tingling and burning sensation extending from right elbow to all digits of right hand. Her daughter is at bedside to assist with history. Patient reports that sensation immediately began after she had her IV placed in this arm while at our facility last week and has continued since. The sensation has not improved or worsened. No change with movements. No other trauma or injury. She has trialed ice, tylenol, and pain cream without improvement. No other symptoms/ concerns. Her daughter states she has been acting her baseline. Denies headaches, dizziness, vision changes, chest pain, palpitations, SOB, fever/chill. She is not on AC. No hx VTE. Related Data Home Medications ?Medication ?Instructions ?Recorded ?Confirmed atorvastatin 20 mg tablet 20 mg PO DAILY 08/29/2012/09 benazepril 10 mg tablet 10 mg PO DAILY 02/03/2312/09 Held on 04/30/25. Instructions: Resume on 05/09/25. hold lisinopril until repeat bmp ,start if bp allows. amlodipine 5 mg tablet 5 mg PO DAILY 07/19/2308/15 denosumab 60 mg/mL subcutaneous 60 mg subcut [id number] 08/18/24 08/15/25 syringe (Prolia) fluticasone propionate 50 1 spray intranasal DAILY 08/15/25 mcg/actuation nasal spray,suspension gabapentin 300 mg capsule 300 mg PO BEDTIME 08/15/25 1 Previous Rx's ?Medication ?Instructions ?Recorded acetaminophen 325 mg tablet 975 mg (3 x 325 mg) PO Q6H PRN 04/30/25 pain #1 tab ropinirole 2 mg tablet 1 mg (1/2 x 2 mg) PO BID #30 tabs 06/20/25 gabapentin 100 mg capsule 100 mg PO BID PRN restless l egs 08/15/25 #60 caps methimazole 5 mg tablet 2.5 mg (1/2 x 5 mg) PO DAILY #45 08/20/25 tabs cholecalciferol (vitamin D3) 25 25 mcg PO DAILY #90 ca ps 10/15/25 mcg (1,000 unit) capsule (Vitamin D3) amoxicillin 875 mg-potassium 1 tab PO Q12H 7 days #14 tabs 10/30/25 clavulanate 125 mg tablet azithromycin 250 mg tablet See Rx Instructions PO .COM PLEX #6 10/30/25 tabs prednisone 20 mg tablet 40 mg (2 x 20 mg) PO DAILY 5 days 10/30/25 #10 tabs Allergies Allergy/AdvReac Type Severity Reaction Status Date / Time No Known Allergies Allergy Verified 11/07/25 10:54 Review of Systems 2 Review of Systems: Yes all other systems are reviewed and are negative [facility] Past Medical History Attestation statement: The following information was validated with the patient. Source: old records reviewed and nursing notes reviewed Medical History Obstructive sleep apnea hypopnea, mild Restless legs syndrome (RLS) Hypersomnia Snoring Acute hyponatremia Osteoporosis Hypertensive emergency On beta april at home Vitamin D deficiency Goiter Hyperparathyroidism Subclinical hyperthyroidism Effusion, left knee Renal impairment High cholesterol Hypertension Left knee pain Surgical History H/O colonoscopy History of esophagogastroduodenoscopy (EGD) Hx of cataract extraction Hx of hysterectomy Family History Family History Father No problems noted. Mother No problems noted. Social History Social History Household Members: None Household Members Other:: lives with her daughter Housing: House Do you presently have visiting nurse or other home services: No Alcohol intake: never Patient Tobacco Use Status: Never used Tobacco e-Cigarette/Vaping Use: Never Used Second Hand Smoke Exposure: No Advance Directives: Yes Advance Directives on File: Yes Advance Directives Date on File: 07/26/23 service: No Current occupational status: unemployed Physical Exam ED Vital Signs: Vital Signs - 24 hr 11/07/25 10:52 Temperature 98 F Pulse Rate 84 Respiratory Rate 16 Blood Pressure 173/74 H Pulse Oximetry 96 Oxygen Delivery Method Room Air BMI result Body Mass Index 32.9 hypertensive, vitals are otherwise wnl General: Well appearing, in no acute distress. Skin: Warm, dry, intact. No rashes or lesions. Head: Normocephalic, atraumatic. EENT: Hearing is intact b/l. Conjunctiva clear. PERRLA. EOM intact. Moist mucous membranes.? Cardiac: Chest wall symmetric. RRR Lungs: Normal respiratory effort without accessory muscle use. CTA bilaterally Ext: +RUE without any overlying skin changes, bruising, open wounds. no mottling. No obvious hematoma formation. Full ROM intact to right shoulder, right elbow, wrist and all digits. No joint swelling. no reproducible tenderness to palpation of the right upper extremity. Compartments soft, compressible. Cap refill less than 2 seconds to all digits of right hand. 2+radial and ulnar pulse intact. Neuro: AOx3. Normal speech.NIH 0. Strength 4/5 intact throughout. No saddle anesthesia. Sensation intact to light touch. NV intact distally. Ambulating with steady gait. Course Course Course Narrative: This is a rapid medical exam performed by Eladio Oconnell NP: Additional HPI, ROS, PE not included below will be deferred to primary provider. Patient is an 84y/o Yi speaking female presenting with complaint of right arm cramping/severe pain. Patient here on 10/30, since that time has complained of pain and tingling to that arm after IV and blood draws. Plan: labs, U/S Reevaluation(s) Reevaluation #1: Blood work is reassuring. Venous duplex without visible DVT. Of note, the cephalic vein is not visualized. Patient's exam is not consistent with an acute DVT however I did inform patient and her mother that if symptoms persist, she should have steady repeated outpatient by PCP order. I have concern that patient's symptoms may be secondary to peripheral nerve injury from IV or blood draw at her visit last week. Her exam is not concerning for stroke, besides tingling there are no focal neuro deficits and her NIH is 0. I do not feel as though imaging of her brain is warranted at this time. No evidence of superficial thrombophlebitis. No evidence of compartment syndrome, no concern for arterial occlusion. Advised NSAIDs at home with PCP follow up. She is currently on gabapentin 300 mg every night. Her PCP may want to increase this for symptomatic control. Patient has remained stable throughout ED visit today. Discussed worrisome signs and symptoms and when to return to the ED. All questions answered at this time. Patient is agreeable with disposition and stable for discharge. Medical Decision Making Medical Decision Making [facility] Narrative: 84 year old female with pmhx significant for arthritis, osteoporosis, HTN, HLD, hyperparathyroidism presents to the ED today for evaluation of tingling and burning sensation extending from right elbow to all digits of right hand. patient is hypertensive, vitals are otherwise wnl. on exam, RUE without any overlying skin changes, bruising, open wounds. no mottling. No obvious hematoma formation. Full ROM intact to right shoulder, right elbow, wrist and all digits. No joint swelling. no reproducible tenderness to palpation of the right upper extremity. Compartments soft, compressible. Cap refill less than 2 seconds to all digits of right hand. 2+radial and ulnar pulse intact. Differential diagnosis includes peripheral nerve injury, hematoma w/ nerve compression, superficial thrombophlebitis, hyperventilation syndrome, cervical radiculopathy, CVA, compartment syndrome, DVT, anemia, electrolyte abnormality, arterial occlusion Labs and ultrasound ordered from triage - plan for review. Differential Diagnosis Differential Diagnoses: The differential diagnosis associated with the presentation includes as above. Admission/Observation not indicated. Lab Data [facility] Lab Attestation statement: I reviewed the patient's lab results. as above. 11/07/25 11:01 11/07/25 11:01 Labs: Lab Results 11/07/25 Range/Units 11:01 WBC 8.4 (4.8-10.8) X10*3/uL RBC 5.23 (4.20-5.50) X10*6/uL Hgb 13.7 (12.0-16.0) g/dl Hct 42.7 (37.0-47.0) % MCV 81.6 (80.0-98.0) fL MCH 26.2 L (27.0-33.0) pg MCHC 32.1 (31.0-35.0) g/dl RDW 14.0 (11.0-16.0) % Plt Count 222 (160-400) X10*3/uL MPV 10.1 (9.4-12.3) fL Immature Gran % (Auto) 0.7 H (0.0-0.4) % Neut % (Auto) 66.3 (45-73) % Lymph % (Auto) 23.4 (20-40) % Bacon % (Auto) 8.1 (2-11) % Eos % (Auto) 1.3 (0-4) % Baso % (Auto) 0.2 (0-2) % Lymph # (Auto) 2.0 (1.2-4.9) X10*3/uL Bacon # (Auto) 0.7 (0.1-1.2) X10*3/uL Eos # (Auto) 0.1 (0.0-0.4) X10*3/uL Baso # (Auto) 0.0 (0.0-0.2) X10*3/uL Abs Immat Gran (auto) 0.06 H (0.00-0.03) X10*3/uL Absolute Neuts (auto) 5.5 (2.0-8.3) x10*3/uL Absolute Nucleated RBC 0.000 (0.0-0.012) X10*3/uL Nucleated RBC % (auto) 0.0 (0.0-0.2) /100WBC Sodium 138 (135-145) mmol/L Potassium 5.0 (3.3-5.1) mmol/L Chloride 104 (96-108) mmol/L Carbon Dioxide 26 (22-29) mmol/L Anion Gap 13 (12-20) BUN 23 H (9-16) mg/dL Creatinine 1.28 (0.5-1.4) mg/dL Estim Creat Clear Calc 25.2 Estimated GFR 40 Random Glucose 110 (60-115) mg/dL Calcium 9.4 (8.4-10.2) mg/dL Total Bilirubin 0.8 (0.0-1.0) mg/dL AST 18 (5-31) U/L ALT 20 (0-31) U/L Alkaline Phosphatase 73 (39-117) U/L Total Protein 7.4 (6.5-8.0) g/dL Albumin 3.8 (3.5-5.0) g/dL Independent Interpretation I performed an independent interpretation of an: Ultrasound Interpretation: RUE venous duplex w/o DVT Radiology Impression Discussion of test interpretation with radiology: I have reviewed the radiologist's reading. Radiologist Impression: Procedure(s): US venous duplex UE RT Accession Number(s): [id number] cc: Evi Thomson MD; Fiona Oconnell NP~ Reason for Exam: pain after IV/blood draws EXAMINATION: US TRIPLEX UPPER EXTREMITY, RIGHT CLINICAL INFORMATION: Pain after IV blood draws. COMPARISON: None available. TECHNIQUE: Color-flow triplex imaging with spectral analysis and compression Doppler was performed on the right upper extremity. FINDINGS: The right internal jugular, subclavian, and axillary veins are patent and free of thrombus. Spectral doppler waveforms are normal. The brachial, basilic , radial, and ulnar veins are patent and compressible. The cephalic vein is not seen. US/US venous duplex UE RT IMPRESSION: No evidence of deep venous thrombosis involving the right upper extremity. The cephalic vein is not seen. Electronically signed by: Leno Hernandez MD 11/07/2025 11:38 AM [facility] Independent Historian Clinical information obtained from an independent historian. History obtained from or confirmed by: Other (daughter) Prescription Management I considered prescription management with: Pain Medication Chronic Conditions Patient?s care impacted by: Hypertension Social Determinants Patient?s care significantly limited by Social Determinants of Health including: Other Social Determinant of Health Critical Care Time Critical Care Time Critical Care Time: No Discharge Plan Discharge Clinical Impression: Paresthesia of right arm Patient Disposition: Home, Self-Care Instructions: Paresthesia (ED) Additional Instructions: You were evaluated in the ED today for a burning/tingling sensation to your lower right arm. Your blood work is reassuring. The ultrasound of your right arm does not demonstrate any visible clots. I have suspicion that your symptoms are caused by a nerve injury sustained during an IV/ blood draw. This is common. I recommend you take anti-inflammatories such as Motrin/ibuprofen to help with pain/discomfort. Tylenol/acetaminophen does not have any anti-inflammatory properties. The sensations should resolve on its own however sometimes it is permanent. Please follow up with your primary care provider. If pain persists, they may want to repeat ultrasound outpatient. They may also increase your gabapentin if needed. Please return to the ED with any new or worsening symptoms. In the case of an emergency call 911. Prescriptions: No Action Prolia 60 mg/mL syringe 60 mg subcut [id number] ropinirole 2 mg tablet 1 mg PO BID Qty: 30 6RF Rx Instructions: at 4pm and at bedtime methimazole 5 mg tablet 2.5 mg PO DAILY Qty: 45 4RF cholecalciferol (vitamin D3) [Vitamin D3] 25 mcg (1,000 unit) capsule 25 mcg PO DAILY Qty: 90 1RF azithromycin 250 mg tablet See Rx Instructions PO .COMPLEX Qty: 6 0RF Rx Instructions: For 250 mg dose pack: take 500 mg today (day 1), then 250 mg for 4 days (days 2-5) amoxicillin-pot clavulanate 875-125 mg tablet 1 tab PO Q12H 7 Days Qty: 14 0RF prednisone 20 mg tablet 40 mg PO DAILY 5 Days Qty: 10 0RF amlodipine 5 mg tablet 5 mg PO DAILY fluticasone propionate 50 mcg/actuation spray,suspension 1 spray intranasal DAILY acetaminophen 325 mg Tablet 975 mg PO Q6H PRN (Reason: pain) Qty: 1 0RF atorvastatin 20 mg tablet 20 mg PO DAILY benazepril 10 mg tablet 10 mg PO DAILY gabapentin 300 mg capsule 300 mg PO BEDTIME gabapentin 100 mg capsule 100 mg PO BID PRN (Reason: restless legs ) Qty: 60 6RF Referrals: Evi Thomson MD [Primary Care Provider, Internal Medicine] Discharge Date/Time: 11/07/25 12:18 Print Language: Nepali
[2025-11-07 10:52] VITALS: BP 173/74; PULSE 84; RESP 16; TEMP 36.6; O2SAT 96; BMI 32.9
[2025-11-07 11:06] LABS: MANUAL DIFF FLAG NO
[2025-11-07 11:10] LABS: Hematocrit 42.7 % (37.0-47.0); Hemoglobin 13.7 g/dl (12.0-16.0); Imm Gran Abs Auto 0.06 X10*3/uL (0.00-0.03); Imm Gran Pct Auto 0.7 % (0.0-0.4); Lymphocytes Absolute Auto 2.0 X10*3/uL (1.2-4.9); Mean Corpuscular HGB Conc 32.1 g/dl (31.0-35.0); Mean Corpuscular Hemoglobin 26.2 pg (27.0-33.0); Mean Corpuscular Volume 81.6 fL (80.0-98.0); NRBC Abs Auto 0.000 X10*3/uL (0.0-0.012); NRBC Pct Auto 0.0 /100WBC (0.0-0.2); Platelet Count 222 X10*3/uL (160-400); Red Blood Count 5.23 X10*6/uL (4.20-5.50); White Blood Count 8.4 X10*3/uL (4.8-10.8)
[2025-11-07 11:20] LABS: Alanine Aminotransferase 20 U/L (0-31); Albumin Level 3.8 g/dL (3.5-5.0); Alkaline Phosphatase 73 U/L (39-117); Anion Gap 13 (12-20); Aspartate Amino Transferase 18 U/L (5-31); Blood Urea Nitrogen 23 mg/dL (9-16); Calcium 9.4 mg/dL (8.4-10.2); Carbon Dioxide 26 mmol/L (22-29); Chloride 104 mmol/L (96-108); Creatinine Clr Calc Pharmacy 25.2; Estimated Glomerular Filt Rate 40; Potassium 5.0 mmol/L (3.3-5.1); Sodium 138 mmol/L (135-145); Total Protein 7.4 g/dL (6.5-8.0)
--- OUTSIDE RECORDS SUMMARY | 2025-11-07 11:45 | XMS_ITS | Encounter Summary ---
Author Organization [employer] Address [address] [facility] 7t [place] [address] Care Team Providers Care Priest Name Role Phone Evi Thomson MD Primary Care Provider + Valerio Sweet PharmD Unavailable [phone] Reason for Visit * Reason Comments Med Refill Encounter Details Date Type Department Care Team ([facility] st Contact Info) Description 09/10/2025 Refill [facility] MEDICINE [address] [place], [place] [phone] Evi Thomson MD [address] [place], [place] [phone] Pure hypercholesterolemia Social History Tobacco Use Types [...] Description 11/26/2025 9:15 AM EST Office Visit [facility] MEDICINE [address] [place] [phone] Evi Thomson MD [address] [place] [phone] documented as of this encounter Goals Goal [...] documented as of this encounter Care Teams Priest Relationship Specialty Start Date End Date Evi Thomson MD [address] [place] [phone] PCP - General Family Medicine 03/13/19 Valerio Sweet PharmD [address] [place] [address] Pharmacist Internal Medicine 11/02/22 [place]OS[place] 05/17/25 documented as of this encounter
--- OUTSIDE RECORDS SUMMARY | 2025-11-07 11:45 | XMS_ITS | Encounter Summary ---
Author Organization [employer] Address [address] [place] [address] 7t [place] [address] Care Team Providers Care Manufacturing Process Engineer Name Role Phone Evi Thomson MD Primary Care Provider + Valerio Sweet PharmD Unavailable [phone] Encounter Details Date Type Department Care Team (Late st Contact Info) Description 10/16/2022 Orders Only [facility] MEDICINE [address] [place] [address] [phone] Evi Thomson MD [address] [place], [place] [phone] Social History Tobacco Use Types Packs/Day Years [...] Description 11/26/2025 9:15 AM EST Office Visit [facility] MEDICINE [address] [place] [address] [phone] Evi Thomson MD [address] [place] [address] documented as of this encounter Visit Diagnoses Not on filedocumented in this encounter Care Teams Manufacturing Process Engineer Relationship Specialty Start Date End Date Evi Thomson MD [address] [place] [phone] PCP - General Family Medicine 03/13/19 Valerio Sweet, Karl [address] [place] [phone] Pharmacist Internal Medicine 11/02/22 [place] A 05/17/25 documented as of this encounter
--- OUTSIDE RECORDS SUMMARY | 2025-11-07 11:45 | XMS_ITS | Encounter Summary ---
Author Organization [employer] Address [address] [facility] 7t [place] [address] Care Team Providers Care Active Directory Architect Name Role Phone Evi Thomson MD Primary Care Provider + Valerio Sweet PharmD Unavailable Reason for Visit * Reason Onset Date Comments HDF/Triage 01/07/2023 Encounter Details Date Type Department Care Team ([facility] st Contact Info) Description 01/07/2023 Telephone [facility] MEDICINE [address] [place], [place] [phone] Evi Thomson MD [address] [place], [place] [phone] HDF/Triage Social History Tobacco Use Types Packs/Day [...] EDT Travel History Travel Start Travel End [facility] 09/28/2025 10/16/2025 COVID-19 Exposure Response Date Recorded In the last 10 days, have yo u been in contact with someone who was confirmed or suspected to have Coronavirus/COVID-19? No / Unsure 12/25/2022 11:53 AM EST documented as of this encounter Miscellaneous Notes * Telephone Encounter - Dyana Hou - 01/07/2023 3:31 PM EST Patient calling for HDF follow up appointment. Patient hospitalized at [facility] . Patient was admitted on 01/06/2023 and discharged on same day. Patient was advised will forward to triage nurse for follow up and appointment scheduling. Please contact pt son in law on [phone] documented in this encounter Plan of Treatment Upcoming Encounters Date Type Department Care Team (Late st Contact Info) Description 11/26/2025 9:15 AM EST Office Visit [facility] MEDICINE [address] [place] [phone] Evi Thomson MD [address] [place] [phone] documented as of this encounter Visit Diagnoses Not on filedocumented in this encounter Care Teams Active Directory Architect Relationship Specialty Start Date End Date Evi Thomson MD [address] [place] [phone] PCP - General Family Medicine 03/13/19 Valerio Sweet, NickiD [address] [place] [phone] Pharmacist Internal Medicine 11/02/22 [facility] 05/17/25 documented as of this encounter
--- OUTSIDE RECORDS SUMMARY | 2025-11-07 11:45 | XMS_ITS | Encounter Summary ---
Author Organization [employer] Address [address] [facility] 7t [place] [address] Care Team Providers Care Strip Mill Operator Name Role Phone Evi Thomson MD Primary Care Provider + Valerio Sweet PharmD Unavailable [phone] Reason for Visit * Reason Comments Med Refill Encounter Details Date Type Department Care Team ([facility] st Contact Info) Description 09/10/2025 Refill [facility] MEDICINE [address] [place], [place] [phone] Norma Avitia DO [address] [place], [place] [phone] Allergic rhinitis due to other allergic trigger, [...] 11/26/2025 9:15 AM EST Office Visit [facility] MEDICINE [address] [place] [phone] Evi Thomson MD [address] [place] [phone] documented as of this encounter Goals Goal [...] documented as of this encounter Care Teams Strip Mill Operator Relationship Specialty Start Date End Date Evi Thomson MD [address] [place] [phone] PCP - General Family Medicine 03/13/19 Valerio Sweet, PharmD [address] [facility] [place] [phone] Pharmacist Internal Medicine 11/02/22 [place] JOSUE 05/17/25 documented as of this encounter
--- OUTSIDE RECORDS SUMMARY | 2025-11-07 11:45 | XMS_ITS | Encounter Summary ---
Author Organization [employer] Address [address] [place] [address] 7 [place] [address] Care Team Providers Care Asbestos Cloth Inspector Name Role Phone Evi Thomson MD Primary Care Provider + Valerio Sweet PharmD Unavailable [phone] Encounter Details Date Type Department Care Team (Late st Contact Info) Description 10/06/2022 Abstract [facility] MEDICINE [address] [place] [address] [phone] ProviderFuentes MD Social History Tobacco Use Types Packs/Day Years Used Date Smoking Tobacco: Never Assessed Comments Unknown Sex and Gender Information Value Date Recorded Sex Assigned at Female 09/14/2022 10:16 AM EDT Legal Sex Female 10:16 AM EDT Gender Identity Female 09/14/2022 10:16 AM EDT Sexual Orientation Straight 09/14/2022 10 :16 AM EDT Travel History Travel Start Travel End [facility] 09/28/2025 10/16/2025 documented as of this encounter Plan of Treatment Upcoming Encounters Date Type Department Care Team (Late st Contact Info) Description 11/26/2025 9:15 AM EST Office Visit [facility] MEDICINE [address] [place] [address] Evi Thomson MD [address] [place], [place] [phone] documented as of this encounter Visit Diagnoses Not on filedocumented in this encounter Care Teams Asbestos Cloth Inspector Relationship Specialty Start Date End Date Evi Thomson MD [address] [place] [address] [phone] PCP - General Family Medicine 03/13/19 Valerio Sweet, NickiD [address] [place] [phone] Pharmacist Internal Medicine 11/02/22 [place] JOSUE 05/17/25 documented as of this encounter
--- OUTSIDE RECORDS SUMMARY | 2025-11-07 11:46 | XMS_ITS | Encounter Summary ---
Author Organization [employer] Address [address] [facility] 7t [place] [address] Care Team Providers Care Cashier Parking Lot Name Role Phone Evi Thomson MD Primary Care Provider + Valerio Sweet PharmD Unavailable [phone] Reason for Visit * Reason Onset Date Comments pre op 12/05/2024 Encounter Details Date Type Department Care Team ([facility] st Contact Info) Description 12/05/2024 Telephone [facility] MEDICINE [address] [place], [place] [phone] Evi Thomson MD [address] [place], [place] [phone] pre op Social History Tobacco Use Types [...] EDT Travel History Travel Start Travel End [facility] 09/28/2025 10/16/2025 documented as of this encounter Miscellaneous Notes * Telephone Encounter - Dinora Rodriguez - 12/06/2024 10:38 AM EST Facility agreed to pre op appointment on 12/22/24 with [place]. Appointment reminder letter mailed * Telephone Encounter - Himanshu Nolen - 12/05/2024 2:43 PM EST Date of Surgery: 12/29 Surgical procedure being done: Bilateral Upper Eyelid Surgery and Muscle Surgery Type of anesthesia: MAC Lab needed: Yes EKG: Yes Surgeon's name: Facility name: [facility]. Surgeon's office number: [phone] Surgeon's office fax number: [phone] Contact name (person you spoke with): Ness Last office note from surgeon requested: No Send Message to Dinora Rodriguez and Kevin Woods documented in this encounter Plan of Treatment Upcoming Encounters Date Type Department Care Team ([facility] st Contact Info) Description 11/26/2025 9:15 AM EST Office Visit [facility] MEDICINE [address] [place] [address] [phone] Evi Thomson MD [address] [place] [address] documented as of this encounter Goals Goal Patient Goal Type Associated Problems Recent Progress Patient-Stated? Author Blood Pressure < 140/90 Blood Pressure 138/66( 025 10:21 AM EST) No Valerio Sweet, PharmMckenna documented as of this encounter Visit Diagnoses Not on filedocumented in this encounter Care Teams Cashier Parking Lot Relationship Specialty Start Date End Date Evi Thomson MD [address] [place] [address] PCP - General Family Medicine 03/13/19 Valreio Sweet, PharmD [address] [place] [phone] Pharmacist Internal Medicine 11/02/22 [place] JOSUE 05/17/25 documented as of this encounter
--- OUTSIDE RECORDS SUMMARY | 2025-11-07 11:46 | XMS_ITS | Clinical Summary ---
Author Organization [employer] [facility] Address [address] [place] [address] Care Team Providers Care Pallet Sorter Name Role Phone Evi Thomson MD Primary [...] age to complete this topic Care Teams Pallet Sorter Relationship Specialty Start Date End Date Evi Thomson MD [address] [place] [phone] PCP - General 09/03/23
--- OUTSIDE RECORDS SUMMARY | 2025-11-07 11:46 | XMS_ITS | Encounter Summary ---
Author Organization [employer] Address 75 [facility] 7t [place] [address] Care Team Providers Care Neurocritical Care Physician Name Role Phone Evi Thomson MD Primary Care Provider + Valerio Sweet PharmD Unavailable [phone] Reason for Visit * Reason Comments Med Refill Encounter Details Date Type Department Care Team ([facility] st Contact Info) Description 07/05/2024 Refill [facility] [address] [place], [place] [phone] Evi Thomson MD [address] [place], [place] [phone] Allergic rhinitis due to other allergic trigger, [...] Description 11/26/2025 9:15 AM EST Office Visit [facility] [address] [place] [address] Evi Thomson MD [address] [place] [address] documented as of this encounter Goals Goal Patient Goal Type Associated Problems Recent Progress Patient-Stated? Author Blood Pressure < 140/90 Blood Pressure 138/66( 025 10:21 AM EST) No Valerio Sweet PharmD documented as of this encounter Visit Diagnoses Diagnosis Allergic rhinitis due to other allergic trigger, unspecified seasonality documented in this encounter Care Teams Neurocritical Care Physician Relationship Specialty Start Date End Date Evi Thomson MD [address] [place] [address] PCP - General Family Medicine 03/13/19 Valerio Sweet PharmD [address] [place] [address] Pharmacist Internal Medicine 11/02/22 [facility] 05/17/25 documented as of this encounter
--- OUTSIDE RECORDS SUMMARY | 2025-11-07 11:46 | XMS_ITS | Clinical Summary ---
Author Organization [employer] [facility] Prior to 04/14/25 Address [address] [place] [address] Care Team Providers Care Airport Utility Worker Name Role Phone Evi Thomson MD Primary Care Provider [phone] Medications No known medications Active Problems No [...] age to complete this topic Care Teams Airport Utility Worker Relationship Specialty Start Date End Date Evi Thomson MD [address] [place] [address] [phone] PCP - General Family Medicine 09/03/23
--- OUTSIDE RECORDS SUMMARY | 2025-11-07 11:46 | XMS_ITS | Encounter Summary ---
Author Organization [employer] Address 75 [facility] 7t [place] [address] Care Team Providers Care Tuckpointer Name Role Phone Evi Thomson MD Primary Care Provider + Valerio Sweet PharmD Unavailable [phone] Reason for Visit * Reason Comments Med Refill Encounter Details Date Type Department Care Team ([facility] st Contact Info) Description 05/14/2024 Refill [facility] [address] [place], [place] [phone] Amrita Alfred FNP [address] [place] [address] Social History Tobacco Use Types Packs/Day Years [...] Description 11/26/2025 9:15 AM EST Office Visit [facility] [address] [place] [address] Evi Thomson MD [address] [place] [address] documented as of this encounter Goals Goal Patient Goal Type Associated Problems Recent Progress Patient-Stated? Author Blood Pressure < 140/90 Blood Pressure 138/66( 025 10:21 AM EST) No Valerio Sweet, PharmMckenna documented as of this encounter Visit Diagnoses Not on filedocumented in this encounter Care Teams Tuckpointer Relationship Specialty Start Date End Date Evi Thomson MD [address] [place] [address] PCP - General Family Medicine 03/13/19 Valerio Sweet, PharmD [address] [place] [address] Pharmacist Internal Medicine 11/02/22 [facility] documented as of this encounter
--- OUTSIDE RECORDS SUMMARY | 2025-11-07 11:46 | XMS_ITS | Encounter Summary ---
Author Organization [employer] Address 75 [facility] 7t [place] [address] Care Team Providers Care Barometers Calibrator Name Role Phone Evi Thomson MD Primary Care Provider + Valerio Sweet PharmD Unavailable [phone] Encounter Details Date Type Department Care Team ([facility] st Contact Info) Description 11/24/2022 Orders Only [facility] [address] [place], [place] [phone] Evi Thomson MD [address] [place], [place] [phone] Hyperkalemia (Primary Dx) Social History Tobacco Use [...] Travel History Travel Start Travel End [facility] 09/28/2025 10/16/2025 COVID-19 Exposure Response Date [...] hyperkalemia. Please call renal and ask that mutuel machine operator calls me back to discuss hyperkalemia and possibility of lokelma or changing meds documented in this encounter Plan of Treatment Upcoming Encounters Date Type Department Care Team (Late st Contact Info) Description 11/26/2025 9:15 AM EST Office Visit [facility] [address] [place], [place] [phone] Evi Thomson MD [address] [place], [place] [phone] documented as of this encounter Procedures Procedure Name Priority Date/Time Associated Diagnosis Comments POTASSIUM Routine 11/27/2022 8:47 AM EST Hyperkalemia documented in this encounter Results * Potassium (11/27/2022 8:47 AM EST) Potassium 5.1 3.5 - 5.3 mmol/L [employer] [place] [employer] Alerts Blood Venous blood specimen / Unknown 11/27/2022 8:47 AM EST 11/27/2022 8:48 AM EST Narrative [facility] - 11/27/2022 8:46 PM EST FASTING:YES FASTING: YES us Evi Thomson MD LAB BLOOD ORDERABLES Fin al Result [facility] [address] [facility], [facility], [place] [address] [employer] [place] [employer] [address] [facility], (N[address]) [place] [address] documented in this encounter Visit Diagnoses Diagnosis Hyperkalemia- Primary Hyperpotassemia documented in this encounter Care Teams Barometers Calibrator Relationship Specialty Start Date End Date Evi Thomson MD [address] [place] [address] PCP - General Family Medicine 03/13/19 Valerio Sweet, Karl [address] [place] [address] Pharmacist Internal Medicine 11/02/22 [facility] 05/17/25 documented as of this encounter
--- OUTSIDE RECORDS SUMMARY | 2025-11-07 11:46 | XMS_ITS | Clinical Summary ---
Author Organization [facility] Address [address] [place] [phone] Phone Care Team Providers Care Customer Assistance Associate Name Role Phone Evi Thomson MD Primary [...] Visit [facility] [address] [place] [address] [facility] [phone] Rikki Pratt MD [address] [facility] [address] [place] [address] Health Maintenance Due Date Last Done Comments Influenza Vaccine (#1) 2025 , 08/24/2019 Pneumococcal Vaccine: 50+ Years Completed 04/04/2024 Pneumococcal Vaccine: Peds (0 to 5 Years) and At-Risk Patients (6 to 49 Years) Discontinued 04/04/2024 Hepatitis B Vaccine Aged Out No longe r eligible based on patient's age to complete this topic Insurance Medicaid OR Medicare Medicaid OR Medicare Care Teams Customer Assistance Associate Relationship Specialty Start Date End Date Evi Thomson MD [address] [place] [address] PCP - General 11/25/20
--- OUTSIDE RECORDS SUMMARY | 2025-11-07 11:46 | XMS_ITS | Encounter Summary ---
Author Organization [employer] Address 75 [facility] 7t [place] [address] Care Team Providers Care Web Graphic Designer Name Role Phone Evi Thomson MD Primary Care Provider + Valerio Sweet PharmD Unavailable [phone] Encounter Details Date Type Department Care Team (Late st Contact Info) Description 11/07/2025 Orders Only GENERIC EXTERNAL DATA DEPARTMENT Provider, [...] Description 11/26/2025 9:15 AM EST Office Visit [facility] [address] [place], [place] [phone] Evi Thomson MD [address] [place], [place] [phone] documented as of this encounter Goals Goal Patient Goal Type Associated Problems Recent Progress Patient-Stated? Author Blood Pressure < 140/90 Blood Pressure 138/66( 025 10:21 AM EST) No Valerio Sweet, NickiD documented as of this encounter Procedures Procedure Name Priority Date/Time Associated Diagnosis Comments [facility] US UPPER EXTREMITY VENOUS DUPLEX RIGHT Routine 11/07/2025 11:12 AM EST CBC WITH AUTO DIFFERENTIAL Routine 11/07/2025 11:01 AM EST COMPREHENSIVE METABOLIC PANEL Routine 11/07/2025 11:01 AM EST documented in this encounter Results * Vascular US upper extremity venous duplex right (11/07/2025 11:12 AM EST) 11/07/2025 11:1 2 AM EST Narrative [facility] - 11/07/2025 11:41 AM EST [facility] [address] [place] [phone] Ultrasound Report Signed Patient: Linda Carranza MR# : [id number] : 1940 Acct:[id number] Age/Sex: 84 / F ADM Date: 11/07/25 Loc: HO.ED Attending Dr: Ordering Physician: Fiona Oconnell NP Date of Service: 11/07/25 Procedure(s): US venous duplex UE RT Accession Number(s): [id number] cc: Evi Thomson MD; Fioan Oconnell NP Reason for Exam: pain after IV/blood draws EXAMINATION: US TRIPLEX UPPER EXTREMITY, RIGHT CLINICAL INFORMATION: Pain after IV blood draws. COMPARISON: None available. TECHNIQUE: Color-flow triplex imaging with spectral analysis and compression Doppler was performed on the right upper extremity. FINDINGS: The right internal jugular, subclavian, and axillary veins are patent and free of thrombus. Spectral doppler waveforms are normal. The brachial, basilic , radial, and ulnar veins are patent and compressible. The cephalic vein is not seen. US/US venous duplex UE RT IMPRESSION: No evidence of deep venous thrombosis involving the right upper extremity. The cephalic vein is not seen. Electronically signed by: Leno Hernandez MD 11/07/2025 11:38 AM [facility] Dictated By: Leon eHrnandez MD Signed By: <Electronically signed by Leno Hernandez MD in OV> 11/07/25 1138 DD/ 1112 TD/TT: 11/07/25 1124 Propagator: Procedure Note Donotuseinterpreter, Image - 11/07/[address] [address] Ultrasound Report Signed Patient: Linda CarranzaMR# : [id number] : 1940cct:[id number] Age/Sex: 84 / FADM Date: 11/07/25 Loc: HO.ED Attending Dr: Ordering Physician: Fiona Oconnell NP Date of Service: 11/07/25 Procedure(s): US venous duplex UE RT Accession Number(s): [id number] cc: Evi Thomson MD; Foina Oconnell NP Reason for Exam: pain after IV/blood draws EXAMINATION: US TRIPLEX UPPER EXTREMITY, RIGHT CLINICAL INFORMATION: Pain after IV blood draws. COMPARISON: None available. TECHNIQUE: Color-flow triplex imaging with spectral analysis and compression Doppler was performed on the right upper extremity. FINDINGS: The right internal jugular, subclavian, and axillary veins are patent and free of thrombus. Spectral doppler waveforms are normal. The brachial, basilic , radial, and ulnar veins are patent and compressible. The cephalic vein is not seen. US/US venous duplex UE RT IMPRESSION: No evidence of deep venous thrombosis involving the right upper extremity. The cephalic vein is not seen. Electronically signed by: Leno Hernandez MD 11/07/2025 11:38 AM EST RP Dictated By: Leno Hernandez MD Signed By: <Electronically signed by Leno Hernandez MD in OV> 11/07/25 1138 DD/ 1112 TD/TT: 11/07/25 1124 Propagator: [facility] External Provider CV VASC ULAR PROCEDURES Edited Result - Final [facility] [address] [place] [phone] * (ABNORMAL) Comprehensive Metabolic Panel (11/07/2025 11:01 AM EST) Sodium 138 135 - 145 mmol/L [facility] Potassium 5.0 3.3 - 5.1 mmol/L [facility] Chloride 104 96 - 108 mmol/L [facility] Carbon Dioxide 26 22 - 29 mmol/L [facility] Anion Gap 13 12 - 20 [facility] Urea Nitrogen (BUN) 23(H) 9 - 16 mg/dL [facility] Creatinine, Serum 1.28 0.5 - 1.4 mg/dL [facility] Creatinine Clr Calc Pharmacy 25.2 [facility] Comment:Provided height and weight: 144.78 cm,68.946 kg.eGFR (calculated from the MDRD study equation) and eCrCl(calculated from the Cockcroft-Gault equation) are based ondifferent parameters and may not yield comparable results.If eCrCl result is absurd, please check patient'sheight/weight. Estimated Glomerular Filt Rate 40 [facility] Comment:Chronic Kidney Disea se: Estimated GFR < 60 mL/min/1.27u3Lrkpqg Kidney Disease: Estimated GFR < 15 mL/min/1.73m2 Glucose 110 60 - 115 mg/dL [facility] Calcium 9.4 8.4 - 10.2 mg/dL [facility] Bilirubin, Total 0.8 0.0 - 1.0 mg/dL [facility] Aspartate Amino Transferase 18 5 - 31 U/L [facility] Alanine Aminotransferase 20 0 - 31 U/L [facility] Total Protein 7.4 6.5 - 8.0 g/dL [facility] Albumin Level 3.8 3.5 - 5.0 g/dL [facility] Alkaline Phosphatase 73 39 - 117 U/L [facility] 11/07/2025 11:0 1 AM EST 11/07/2025 11:04 AM EST us Generic External Data Provider LAB BLOOD ORDERAB LES Final Result [facility] [address] [place] [phone] * (ABNORMAL) CBC auto differential (11/07/2025 11:01 AM EST) White Blood Count 8.4 4.8 - 10.8 X10*3/uL [facility] Red Blood Count 5.23 4.20 - 5.50 X10*6/uL [facility] Hemoglobin 13.7 12.0 - 16.0 g/dl [facility] Hematocrit 42.7 37.0 - 47.0 % [facility] Mean Corpuscular Volume 81.6 80.0 - 98.0 fL [facility] Mean Corpuscular Hemoglobin 26.2(L) 27.0 - 33.0 pg [facility] Mean Corpuscular HGB Conc 32.1 31.0 - 35.0 g/dl [facility] Red Cell Distribution Width 14.0 11.0 - 16.0 % [facility] Platelet Count 222 160 - 400 X10*3/uL [facility] Mean Platelet Volume 10.1 9.4 - 12.3 fL [facility] Neutrophils Percent Auto 66.3 45 - 73 % [facility] Imm Gran Pct Auto 0.7(H) 0.0 - 0.4 % [facility] Lymphocytes Percent Auto 23.4 20 - 40 % [facility] Monocytes Percent Auto 8.1 2 - 11 % [facility] Eosinophils Percent Auto 1.3 0 - 4 % [facility] Basophils Percent Auto 0.2 0 - 2 % [facility] NRBC Pct Auto 0.0 0.0 - 0.2 /100WBC [facility] Neutrophils Absolute Auto 5.5 2.0 - 8.3 x10*3/uL [facility] Imm Gran Abs Auto 0.06(H) 0.00 - 0.03 X10*3/uL [facility] Lymphocytes Absolute Auto 2.0 1.2 - 4.9 X10*3/uL [facility] Monocytes Absolute Auto 0.7 0.1 - 1.2 X10*3/uL [facility] Eosinophils Absolute Auto 0.1 0.0 - 0.4 X10*3/uL [facility] Basophils Absolute Auto 0.0 0.0 - 0.2 X10*3/uL [facility] NRBC Abs Auto 0.000 0.0 - 0.012 X10*3/uL [facility] 11/07/2025 11:0 1 AM EST 11/07/2025 11:04 AM EST us Generic External Data Provider LAB BLOOD ORDERAB LES Final Result [facility] [address] [place] [phone] documented in this encounter Visit Diagnoses Not on filedocumented in this encounter Additional Health Concerns Assessment Noted Time PHQ-9 Depression Total Score: 5 07/04/20 25 8:47 AM EDT documented as of this encounter Care Teams Web Graphic Designer Relationship Specialty Start Date End Date Evi Thomsno MD [address] [place] [address] PCP - General Family Medicine 03/13/19 Valerio Sweet, Karl [address] [place] [address] Pharmacist Internal Medicine 11/02/22 [facility] documented as of this encounter
--- OUTSIDE RECORDS SUMMARY | 2025-11-07 11:46 | XMS_ITS | Encounter Summary ---
Author Organization [employer] Address 75 [facility] 7t [place] [address] Care Team Providers Care Scout Executive Name Role Phone Evi Thomson MD Primary Care Provider + Valerio Sweet PharmD Unavailable [phone] Encounter Details Date Type Department Care Team ([facility] st Contact Info) Description 08/10/2024 Telephone [facility] [address] [place], [place] [phone] Evi Thomson MD [address] [place], [place] [phone] Social History Tobacco Use Types Packs/Day Years [...] Description 11/26/2025 9:15 AM EST Office Visit [facility] [address] [place] [phone] Evi Thomson MD [address] [place] [address] documented as of this encounter Goals Goal Patient Goal Type Associated Problems Recent Progress Patient-Stated? Author Blood Pressure < 140/90 Blood Pressure 138/66( 025 10:21 AM EST) No Valerio Sweet PharmD documented as of this encounter Visit Diagnoses Not on filedocumented in this encounter Care Teams Scout Executive Relationship Specialty Start Date End Date Evi Thomson MD [address] [place] [address] PCP - General Family Medicine 03/13/19 Valerio Sweet PharmD [address] [place] [address] Pharmacist Internal Medicine [facility]/02[facility] documented as of this encounter
--- OUTSIDE RECORDS SUMMARY | 2025-11-07 11:46 | XMS_ITS | Encounter Summary ---
Author Organization [employer] Address 75 [facility] 7t [place] [address] Care Team Providers Care Stitch Burnisher Name Role Phone Evi Thomson MD Primary Care Provider + Valerio Sweet PharmD Unavailable [phone] Reason for Visit * Reason Comments Med Refill Encounter Details Date Type Department Care Team ([facility] st Contact Info) Description 09/17/2025 Refill [facility] [address] [place], [place] [phone] Evi Thomson MD [address] [place], [place] [phone] Pure hypercholesterolemia Social History Tobacco Use Types [...] EST Office Visit [facility] [address] [place] [phone] Evi Thomson MD [address] [place] [address] documented as of this encounter Goals Goal [...] documented as of this encounter Care Teams Stitch Burnisher Relationship Specialty Start Date End Date Evi Thomson MD [address] [place] [address] PCP - General Family Medicine 03/13/19 Valerio Sweet PharmD [address] [place] [address] Pharmacist Internal Medicine 11/02/22 [facility] 05/17/25 documented as of this encounter
--- OUTSIDE RECORDS SUMMARY | 2025-11-07 11:46 | XMS_ITS | Encounter Summary ---
Author Organization [employer] Address [address] [facility] 7t [place] [address] Care Team Providers Care Staff Electrical Engineer Name Role Phone Evi Thomson MD Primary Care Provider + Valerio Sweet PharmD Unavailable [phone] Reason for Visit * Reason Onset Date Comments Med Refill 06/14/2025 Encounter Details Date Type Department Care Team (Late st Contact Info) Description 06/14/2025 Telephone [facility] [address] [place], [place] [phone] Evi Thomson MD [address] [place], [place] [phone] Med Refill Social History Tobacco Use Types [...] 10:23 AM EDT Lidocaine was sent to [facility][id number] on 06/12/25 #30 with 1 refill and Ropinirole isn't prescribed by PCP. * Telephone Encounter - Shyam Silverio - 06/14/2025 10:18 AM EDT TC from pt requesting medication refill. Medications needing refill : rOPINIRole (Requip) 1 MG tablet lidocaine (Lidoderm) 5 % patch To be sent to: [facility]/pharmacy #[id number] - [facility] - [address] [place] [address] documented in this encounter Plan of Treatment Upcoming Encounters Date Type Department Care Team ([facility] st Contact Info) Description 11/26/2025 9:15 AM EST Office Visit [facility] [address] [place] [address] Evi Thomson MD [address] [place] [address] documented as of this encounter Goals Goal [...] documented as of this encounter Care Teams Staff Electrical Engineer Relationship Specialty Start Date End Date Evi Thomson MD [address] [place] [address] PCP - General Family Medicine 03/13/19 Valerio Sweet, PharmD [address] [place] [address] Pharmacist Internal Medicine 11/02/22 [facility] 05/17/25 documented as of this encounter
--- OUTSIDE RECORDS SUMMARY | 2025-11-07 11:46 | XMS_ITS | Encounter Summary ---
Author Organization [employer] Address 75 [facility] 7t [place] [address] Care Team Providers Care Act Tutor Name Role Phone Evi Thomson MD Primary Care Provider + Valerio Sweet PharmD Unavailable [phone] Reason for Visit * Reason Onset Date Comments ER Follow-up 11/01/2025 Encounter Details Date Type Department Care Team (Late st Contact Info) Description 11/01/2025 Results Follow-Up [facility] 230 [place], [place] [phone] Evi Thomson MD 230 [place], [place] [phone] CTA Chest PE Protocal Social History Tobacco Use Types Packs/Day Years [...] encounter Miscellaneous Notes * Telephone Encounter - Kylah Clark RN - 11/02/2025 10:58 AM EST ED note reviewed, pt. In ED 10/30/25 with chest pain, headache, productive cough. CT scan showed bronchitis and sinus disease. Pt. Discharged with prednisone x 5 days, Z pack and augmentin x 7 days. TC placed to daughter (on HIPAA). Daughter reports pt. Is feeling much better . Daughter reports pt.'s cough is clearing up , the only remaining symptoms are sweating a lot at night and a mild headache. Confirms taking 3 rxs from ED, reports pt. Has been having loose stools 3-4 times a which which she believes is a side effect from antibiotics. Reports she has been taking antibiotics with food.Will have pt. Increase fluid intake especially with electrolytes and let us know if loose stools are occurring 6 or more times/ day. Daughter will f/up with PCP At appointment 11/26/25 or sooner prn * Result Encounter Note - Evi Thomson MD - 11/01/2025 9:43 PM EST Patient was seen in the ED on 10/30 w sinusitis and was given abs + PRD. Please schedule a FU ED/Chest CT fu appt in 2-4w or earlier if needed. documented in this encounter Plan of Treatment Upcoming Encounters Date Type Department Care Team (Late st Contact Info) Description 11/26/2025 9:15 AM EST Office Visit [facility] [address] [place] [address] Evi Thomson MD [address] [place] [address] documented as of this encounter Goals Goal [...] documented as of this encounter Care Teams Act Tutor Relationship Specialty Start Date End Date Evi Thomson MD [address] [place] [address] PCP - General Family Medicine 03/13/19 Valerio Sweet, NickiD [address] [place] [address] Pharmacist Internal Medicine 11/02/22 [facility] 05/17/25 documented as of this encounter
--- OUTSIDE RECORDS SUMMARY | 2025-11-07 11:46 | XMS_ITS | Clinical Summary ---
Author Organization [employer] Address [address] [facility] 7[address] [place] [address] Care Team Providers Care Mail Order Sorter Name Role Phone Evi Thomson MD Primary Care Provider + Valerio Sweet PharmD Unavailable [phone] Allergies No known active allergies Medications * This document contains information received from the source organization and may not represent a complete record from that organization. methIMAzole (Tapazole) 5 MG tablet Take 0.5 tablets by mouth 1 (one) time each day. Active Elastic Bandages & Supports (B & B Knee Brace/Supports) [facility] [place] Active Blood Pressure Monitoring (Omron 3 [...] 2024 Active trimethoprim-polymyxin b (Polytrim) ophthalmic solutionIndications:Ac [place] bacterial conjunctivitis of both eyes Administer 1 [...] placement and feels safer. Past experiences in senior living facilities are causing distress in her mental [...] of major depressive disorder without prior episode ([facility]) 04/19/2025 Assessment & Plan (06/12/2025 2:38 PM [...] community programs and could be referred to [facility]) - will f/u next visit to [...] AM EDT): Pt will be traveling to [facility] for the for her child. [...] visit. RBS wnl Will reschedule appointment w/ vibrating screed operator when she returns form her trip from [facility] Fu 4-6 m Assessment & Plan (09/09/2023 9:44 AM EDT): Controlled. A1c is at goal. Encourage to remain hydrated at all times and I will refer to vibrating screed operator, counseled re more frequent low calorie/carb meals. [...] PM EDT): Partial improvement after PT at [facility], I will refer to orthopedic [...] house keeping), will refer for evaluation of LANDSCAPE DESIGNER - dicussed with pt regarding risk of [...] especially given history of hyperkalemia Follow-up with hearing aid fitter, continue benazepril Assessment & Plan (05/24/2024 12:32 [...] Encounters Date Type Department Care Team Description 11/07/2025 Orders Only GENERIC EXTERNAL DATA DEPARTMENT Provider, Generic External Data 11/01/2025 Results Follow-Up [facility] [address] [place] [address] Evi Thomson MD CTA Chest PE Protocal 10/30/2025 Orders Only GENERIC EXTERNAL DATA DEPARTMENT Provider, Generic External Data 10/30/2025 Telephone [facility] [address] [place] [address] Evi Thomson MD Nurse Triage 10/29/2025 10:30 AM EST Office Visit [facility] [address] [place] [phone] Ada Allison FNP Upper respiratory tract infection, unspecified type (Primary Dx); Sore throat (viral); Myalgia; Other chest pain; Shortness of breath; Acute bacterial conjunctivitis of both eyes 10/29/2025 Travel 09/28/2025 Telephone [facility] [address] [place] [phone] Evi Thomson MD recall 09/19/2025 Orders Only GENERIC EXTERNAL DATA DEPARTMENT Provider, Generic External Data 09/17/[address] [address] Evi Thomson MD Pure hypercholesterolemia 09/11/2025 Telephone [facility] [address] [place] [phone] Evi Thomson MD Med Refill 09/10/2025 Refill [facility] [address] [place] [phone] Norma Avitia DO Allergic rhinitis due to other allergic trigger, unspecified seasonality 09/10/2025 Refill [facility] [address] [place] [phone] Evi Thomson MD Pure hypercholesterolemia 08/22/2025 Patient Outreach [address] [address] Evi Thomson MD Medicare Annual Wellness Visit Initial (Annual wellness visit unscheduled) 08/17/2025 10:30 AM EDT Office Visit [facility] [address] [place] [phone] Evi Thomson MD Major depressive disorder in remission, unspecified whether recurrent (CMS/HCC) (Primary Dx); PTSD (post-traumatic stress disorder); Lateral epicondylitis of left elbow; Benign hypertension; Encounter for immunization 08/17/2025 Travel 08/16/[address] [address] Evi Thomson MD Chart Prep 08/14/2025 Refill [facility] [address] [place] [address] [place] [address] Margarita Reyes MD 08/09/2025 Patient Outreach [facility] [address] [place] [address] Evi Thomson MD Pre-visit Planning ([facility] screening completed on 06/13/2025) from Last [...] EDT Travel History Travel Start Travel End [facility] 09/28/2025 10/16/2025 Last Filed Vital Signs Vital [...] Description 11/26/2025 9:15 AM EST Office Visit [facility] [address] [place] [address] Evi Thomson MD [address] [place] [address] Health Maintenance Due Date Last Done Comments [...] Procedure Name Priority Date/Time Associated Diagnosis Comments VASC US UPPER EXTREMITY VENOUS DUPLEX RIGHT Routine 11/07/2025 11:12 AM EST COMPREHENSIVE METABOLIC PANEL Routine 11/07/2025 11:01 AM EST CBC WITH AUTO DIFFERENTIAL Routine 11/07/2025 11:01 AM EST D DIMER HIGH SENSITIVITY Routine 10/30/2025 2:44 PM EST CTA CHEST PE PROTOCAL Routine 10/30/2025 2:[address] HEAD WO CONTRAST Routine 10/30/2025 2 :12 PM EST BLOOD CULTURE (SECOND) Routine 10/30/2025 12:50 PM EST LACTIC ACID Routine 10/30/2025 12:41 PM EST BLOOD CULTURE (FIRST) Routine 10/30/2025 12:41 PM EST NT-PROBNP Routine [...] Recently Relevant to Health Maintenance Results * Vascular US upper extremity venous duplex right (11/07/2025 11:12 AM EST) 11/07/2025 11:1 2 AM EST [facility] - 11/07/2025 11:41 AM EST [place] [address] Ultrasound Report Signed Patient: Linda Carranza MR# : [id number] : 1940 Acct:[id number] Age/Sex: 84 / F ADM Date: 11/07/25 Loc: HO.ED Attending Dr: Ordering Physician: Fiona Oconnell NP Date of Service: 11/07/25 Procedure(s): US venous duplex UE RT Accession Number(s): [id number] cc: Evi Thomson MD; Fiona Oconnell NP Reason for Exam: pain after [...] Leno Hernandez MD 11/07/2025 11:38 AM EST Dictated By: Leno Hernandez MD Signed By: <Electronically signed by Leno Hernandez MD in OV> 11/07/25 1138 DD/ 1112 TD/TT: 11/07/25 1124 Fiberglass Boat Finisher: MIYA Procedure Note Donotuseinterpreter, Image - 11/07/2025 [place] [address] Ultrasound Report Signed Patient: Linda Carranza# : [id number] : 1940cct:[id number] Age/Sex: 84 / FADM Date: 11/07/25 Loc: .ED Attending Dr: Ordering Physician: Fiona Oconnell NP Date of Service: 11/07/25 Procedure(s): US venous duplex UE RT Accession Number(s): [id number] cc: Evi Thomson MD; Fiona Oconnell NP Reason for Exam: pain after [...] Leno Hernandez MD 11/07/2025 11:38 AM EST Dictated By: Leno Hernandez MD Signed By: <Electronically signed by Leno Hernandez MD in OV> 11/07/25 1138 DD/ 1112 TD/TT: 11/07/25 1124 Fiberglass Boat Finisher: MIYA [facility] External Provider CV VASC ULAR PROCEDURES Edited Result - Final [facility] [address] [place] [phone] * (ABNORMAL) CBC auto differential (11/07/2025 11:01 AM EST) Only the most recent of2 resultswithin the time period is included. White Blood Count 8.4 4.8 - 10.8 X10*3/uL [facility] Red Blood Count 5.23 4.20 - 5.50 X10*6/uL [facility] Hemoglobin 13.7 12.0 - 16.0 g/dl [facility] Hematocrit 42.7 37.0 - 47.0 % [facility] Mean Corpuscular Volume 81.6 80.0 - 98.0 fL [facility] Mean Corpuscular Hemoglobin 26.2(L) 27.0 - 33.0 pg [facility] Mean Corpuscular HGB Conc 32.1 31.0 - 35.0 g/dl [facility] Red Cell Distribution Width 14.0 11.0 - 16.0 % [facility] Platelet Count 222 160 - 400 X10*3/uL [facility] Mean Platelet Volume 10.1 9.4 - 12.3 fL [facility] Neutrophils Percent Auto 66.3 45 - 73 % [facility] Imm Gran Pct Auto 0.7(H) 0.0 - 0.4 % [facility] Lymphocytes Percent Auto 23.4 20 - 40 % [facility] Monocytes Percent Auto 8.1 2 - 11 % [facility] Eosinophils Percent Auto 1.3 0 - 4 % [facility] Basophils Percent Auto 0.2 0 - 2 % [facility] NRBC Pct Auto 0.0 0.0 - 0.2 /100WBC [facility] Neutrophils Absolute Auto 5.5 2.0 - 8.3 x10*3/uL [facility] Imm Gran Abs Auto 0.06(H) 0.00 - 0.03 X10*3/uL [facility] Lymphocytes Absolute Auto 2.0 1.2 - 4.9 X10*3/uL [facility] Monocytes Absolute Auto 0.7 0.1 - 1.2 X10*3/uL [facility] Eosinophils Absolute Auto 0.1 0.0 - 0.4 X10*3/uL [facility] Basophils Absolute Auto 0.0 0.0 - 0.2 X10*3/uL [facility] NRBC Abs Auto 0.000 0.0 - 0.012 X10*3/uL [facility] 11/07/2025 11:0 1 AM EST 11/07/2025 11:04 AM EST us Generic External Data Provider LAB BLOOD ORDERAB LES Final Result Performing Organization Address City/State/[facility] Co de Phone Number [facility] [address] [place] [phone] * (ABNORMAL) Comprehensive Metabolic Panel (11/07/2025 11:01 AM EST) Sodium 138 135 - 145 mmol/L [facility] Potassium 5.0 3.3 - 5.1 mmol/L [facility] Chloride 104 96 - 108 mmol/L [facility] Carbon Dioxide 26 22 - 29 mmol/L [facility] Anion Gap 13 12 - 20 [facility] Urea Nitrogen (BUN) 23(H) 9 - 16 mg/dL [facility] Creatinine, Serum 1.28 0.5 - 1.4 mg/dL [facility] Creatinine Clr Calc Pharmacy 25.2 [facility] Comment:Provided height and weight: 144.78 cm,68.946 kg.eGFR (calculated from the MDRD study equation) and eCrCl(calculated from the Cockcroft-Gault equation) are based ondifferent parameters and may not yield comparable results.If eCrCl result is absurd, please check patient'sheight/weight. Estimated Glomerular Filt Rate 40 [facility] Comment:Chronic Kidney Disea se: Estimated GFR < 60 mL/min/1.53h8Dybyyf Kidney Disease: Estimated GFR < 15 mL/min/1.73m2 Glucose 110 60 - 115 mg/dL [facility] Calcium 9.4 8.4 - 10.2 mg/dL [facility] Bilirubin, Total 0.8 0.0 - 1.0 mg/dL [facility] Aspartate Amino Transferase 18 5 - 31 U/L [facility] Alanine Aminotransferase 20 0 - 31 U/L [facility] Total Protein 7.4 6.5 - 8.0 g/dL [facility] Albumin Level 3.8 3.5 - 5.0 g/dL [facility] Alkaline Phosphatase 73 39 - 117 U/L [facility] 11/07/2025 11:0 1 AM EST 11/07/2025 11:04 AM EST us Generic External Data Provider LAB BLOOD ORDERAB LES Final Result [facility] [address] [place] [phone] * D Dimer High Sensitivity (10/30/2025 2:44 PM EST) D Dimer High Sensitivity 327 NG/ML [facility] Comment:D-DIMER HS REFERENCE RANGENote: Our [...] Provider LAB BLOOD ORDERAB LES Final Result [facility] [address] [place] [phone] * CTA Chest PE Protocal (10/30/2025 2:12 PM EST) Anatomical Region Laterality Modality Body, Chest Computed Tomogra phy 10/30/2025 2:12 PM EST Narrative 10/30/2025 3:06 PM EST [address] [address] [address] Scan Report Signed Patient: Linda Carranza MR# : [id number] : 1940 Acct:[id number] Age/Sex: 84 / F ADM Date: 10/30/25 Loc: HO.ED Attending Dr: Ordering Physician: Ayde Lund Date of Service: 10/30/25 Procedure(s): CT angio chest PE protocol Accession Number(s): [id number] cc: Evi Thomson MD; Ayde Lund Report Number: [id number]: Total DLP = 0.00 mGy-cm Reason for [...] by: Blue Suero MD 10/30/2025 03:03 PM [facility] Dictated By: Blue Suero MD Signed By: <Electronically signed by Blue Suero MD in OV> 10/30/25 1503 DD/ 1412 TD/TT: 10/30/25 1435 Fiberglass Boat Finisher: Procedure Note Donotuseinterpreter, Image - 10/30/[address] [address] [address] Scan Report Signed Patient: Linda CarranzaMR# : [id number] : 9Acct:[id number] Age/Sex: 84 / FADM Date: 10/30/25 Loc: HO.ED Attending Dr: Ordering Physician: Ayde Lund Date of Service: 10/30/25 Procedure(s): CT angio chest PE protocol Accession Number(s): [id number] cc: Evi Thomson MD; Ayde Lund Report Number: [id number]: Total DLP = 0.00 mGy-cm Reason for [...] by: Blue Suero MD 10/30/2025 03:03 PM [facility] Dictated By: Blue Suero MD Signed By: <Electronically signed by Blue Suero MD in OV> 10/30/25 1503 DD/ 1412 TD/TT: 10/30/25 1435 Fiberglass Boat Finisher: [facility] External Provider IMG CT PROCEDURES Edited Result - Final * CT Head w/o Contrast (10/30/2025 2:12 PM EST) Anatomical Region Laterality Modality Head, Neck Computed Tomogra phy 10/30/2025 2:12 PM EST Narrative 10/30/2025 2:48 PM EST [address] [address] [address] Scan Report Signed Patient: Linda Carranza MR# : [id number] : 1940 Acct:[id number] Age/Sex: 84 / F ADM Date: 10/30/25 Loc: HO.ED Attending Dr: Ordering Physician: Ayde Lund Date of Service: 10/30/25 Procedure(s): CT head/brain wo IV con Accession Number(s): [id number] cc: Evi Thomson MD; Ayde Lund Report Number: [id number]: Total DLP = 910.00 mGy-cm Reason for [...] by: Blue Suero MD 10/30/2025 02:45 PM [facility] Dictated By: Blue Suero MD Signed By: <Electronically signed by Blue Suero MD in OV> 10/30/25 1445 DD/ 1412 TD/TT: 10/30/25 1435 Fiberglass Boat Finisher: Procedure Note Donotuseinterpreter, Image - 10/30/[address] [place] [address] [address] Scan Report Signed Patient: Linda CarranzaMR# : [id number] : 9Acct:[id number] Age/Sex: 84 / FADM Date: 10/30/25 Loc: HO.ED Attending Dr: Ordering Physician: Ayde Lund Date of Service: 10/30/25 Procedure(s): CT head/brain wo IV con Accession Number(s): [id number] cc: Evi Thomson MD; Ayde Lund Report Number: [id number]: Total DLP = 910.00 mGy-cm Reason for [...] 10/30/25 1445 DD/ 1412 TD/TT: 10/30/25 1435 Fiberglass Boat Finisher: [facility] External Provider IMG CT PROCEDURES Edited Result - Final * Blood Culture (Second) (10/30/2025 12:50 PM EST) Blood Venous blood specimen / Unknown 10/30/2025 12:50 PM EST 10/30/2025 12:59 PM EST Comment:Blood Narrative [facility] - 11/04/2025 3:00 PM EST Blood Culture (Second) No growth after 5 days. Specimen Source: Blood Generic External Data Provider LAB MICROBIOLOGY - GENERAL ORDERABLES Final Result Performing Organization Address [facility] Co de Phone Number [facility] [address] [place] [phone] * Blood Culture (First) (10/30/2025 12:41 PM EST) Blood Venous blood specimen / Unknown 10/30/2025 12:41 PM EST 10/30/2025 12:46 PM EST Comment:Blood Narrative [facility] - 11/04/2025 2:46 PM EST Blood Culture (First) No growth after 5 days. Specimen Source: Blood Generic External Data Provider LAB MICROBIOLOGY - GENERAL ORDERABLES Final Result Performing Organization Address [facility] Co de Phone Number [facility] [address] [place] [phone] * Lactic Acid (10/30/2025 12:41 PM EST) Lactic Acid 1.0 0.5 - 2.0 mmol/L [facility] 10/30/2025 12:4 1 PM EST 10/30/2025 12:52 PM EST Generic External Data Provider LAB BLOOD ORDERAB LES Final Result Performing Organization Address [facility] Co de Phone Number [facility] [address] [place] [phone] * High Sensitivity Troponin I (10/30/2025 11:56 AM EST) TROPONIN I HIGH SENSITIVITY 5.7 <3.5 - 17.0 ng/L [facility] Comment:The Huggins high sens itivity Troponin-I results should beused in conjunction with other diagnostic information suchas ECG, clinical observations and information, and patientsymptoms to aid in the diagnosis of SD. 10/30/2025 11:5 6 AM EST 10/30/2025 12:00 PM EST Generic External Data Provider LAB BLOOD ORDERAB LES Final Result Performing Organization Address [facility]/ZIP Co de Phone Number [facility] [address] [place] [phone] * SARS-CoV-2 RNA, Influenza A/B, and RSV RNA, Ql NAAT (10/30/2025 11:56 AM EST) Influenza A PCR NEGATIVE Negative [facility] Influenza B PCR NEGATIVE Negative [facility] Resp Syncy Virus RNA Qual PCR NEGATIVE Negative [facility] SARS COV2 PCR NEGATIVE Negative [facility] Comment:All test results mus t be [...] use by authorized laboratories.Testing performed on the [employer] GeneXpert utilizingreal-time RT-PCR.All SARS CoV2 and positive influenza A/B results arereported to [facility]. 10/30/2025 11:5 6 AM EST 10/30/2025 12:00 PM EST Generic External Data Provider LAB MICROBIOLOGY - GENERAL ORDERABLES Final Result Performing Organization Address [facility]/ZIP Co de Phone Number [facility] [address] [place] [phone] * (ABNORMAL) NT-proBNP (10/30/2025 11:56 AM EST) NT-proBNP 356.2(H) <300 pg/mL [facility] Comment:Reference Range:Age Group (years) NT-proBNP (pg/ml) InterpretationAll <300 Negative: HF unlikelyFor patients presenting to the ED with clinical suspicion ofnew onset or worsening HF, see below:18 to <50 >299.9 to <450.0 Grayzone: [id number] to 75 >299.9 to <900.0 other causes of>75 >299.9 to <1800.0 NT-proBNP [id number] to <50 >449.9 Positive: HF [id number] >899.9>75 >1799.9Note: Elevated NT-proBNP levels should be interpreted inthe context of other clinical information. 10/30/2025 11:5 6 AM EST 10/30/2025 12:00 PM EST Generic External Data Provider LAB BLOOD ORDERAB LES Final Result Performing Organization Address [facility] Co de Phone Number [facility] [address] [place] [phone] * Magnesium (10/30/2025 11:56 AM EST) Magnesium 2.1 1.6 - 2.6 mg/dL [facility] 10/30/2025 11:5 6 AM EST 10/30/2025 12:00 PM EST Generic External Data Provider LAB BLOOD ORDERAB LES Final Result Performing Organization Address [facility] Co de Phone Number [facility] [address] [place] [phone] * Hepatic Function Panel (10/30/2025 11:56 AM EST) Bilirubin, Total 0.9 0.0 - 1.0 mg/dL [facility] Bilirubin, Direct 0.3 0.0 - 0.5 mg/dL [facility] Aspartate Amino Transferase 19 5 - 31 U/L [facility] Alanine Aminotransferase 11 0 - 31 U/L [facility] Total Protein 7.4 6.5 - 8.0 g/dL [facility] Albumin Level 3.8 3.5 - 5.0 g/dL [facility] Alkaline Phosphatase 75 39 - 117 U/L [facility] 10/30/2025 11:5 6 AM EST 10/30/2025 12:00 PM EST us Generic External Data Provider LAB BLOOD ORDERAB LES Final Result Performing Organization Address [facility] Co de Phone Number [facility] [address] [place] [phone] * (ABNORMAL) Basic Metabolic Panel (10/30/2025 11:56 AM EST) Only the most recent of2 resultswithin the time period is included. Sodium 137 135 - 145 mmol/L [facility] Potassium 4.5 3.3 - 5.1 mmol/L [facility] Chloride 105 96 - 108 mmol/L [facility] Carbon Dioxide 26 22 - 29 mmol/L [facility] Anion Gap 11(L) 12 - 20 [facility] Urea Nitrogen (BUN) 18(H) 9 - 16 mg/dL [facility] Creatinine, Serum 1.08 0.5 - 1.4 mg/dL [facility] Creatinine Clr Calc Pharmacy TNP [facility] Comment:Unable to calculate eCrCL; all parameters not provided. Estimated Glomerular Filt Rate 48 [facility] Comment:Chronic Kidney Disea se: Estimated GFR < 60 mL/min/1.78i5Tpridf Kidney Disease: Estimated GFR < 15 mL/min/1.73m2 Glucose 151(H) 60 - 115 mg/dL [facility] Calcium 9.0 8.4 - 10.2 mg/dL [facility] 10/30/2025 11:5 6 AM EST 10/30/2025 12:00 PM EST us Generic External Data Provider LAB BLOOD ORDERAB LES Final Result Performing Organization Address City/[facility]/ZIP Co de Phone Number [facility] [address] [place] [phone] * XR Chest 1 View (10/30/2025 11:55 AM EST) Anatomical Region Laterality Modality Chest Radiographic Camille ging 10/30/2025 11:5 5 AM EST Narrative 10/30/2025 12:20 PM EST [address] [address] XRay Report Signed Patient: Linda Carranza MR# : [id number] : 1940 Acct:[id number] Age/Sex: 84 / F ADM Date: 10/30/25 Loc: HO.ED Attending Dr: Ordering Physician: Ashley Cevallos DO Date of Service: 10/30/25 Procedure(s): XR chest 1V Accession Number(s): [id number] cc: Evi Thomosn MD; Ashley Cevallos DO Reason for Exam: [...] 10/30/25 1218 DD/ 1155 TD/TT: 10/30/25 1200 Fiberglass Boat Finisher: Procedure Note Donotuseinterpreter, Image - 10/30/[address] [address] XRay Report Signed Patient: Linda CarranzaMR# : [id number] : 1940cct:[id number] Age/Sex: 84 / FADM Date: 10/30/25 Loc: HO.ED Attending Dr: Ordering Physician: Ashley Cevallos DO Date of Service: 10/30/25 Procedure(s): XR chest 1V Accession Number(s): [id number] cc: Evi Thomson MD; Ashley Cevallos DO [...] 10/30/25 1218 DD/ 1155 TD/TT: 10/30/25 1200 Fiberglass Boat Finisher: [facility] External Provider IMG XR PROCEDURES Edited Result - Final * XR Chest 2 Views (10/29/2025 12:30 PM EST) Anatomical Region Laterality Modality Chest Radiographic Camille ging 10/29/2025 12:3 0 PM EST Narrative 10/29/2025 12:58 PM EST [address] [address] XRay Report Signed Patient: Linda Carranza MR# : [id number] : 1940 Acct:[id number] Age/Sex: 84 / F ADM Date: 10/29/25 Loc: HO.HHCX Attending Dr: Ada CARSON Ordering Physician: Ada Allison Date of Service: 10/29/25 Procedure(s): XR chest 2V Accession Number(s): [id number] cc: Linda Vargas MD; Ada Allison Reason [...] 10/29/25 1255 DD/ 1230 TD/TT: 10/29/25 1232 Fiberglass Boat Finisher: Procedure Note Donotuseinterpreter, Image - 10/29/2025 [place] [address] XRay Report Signed Patient: Linda CarranzaMR# : [id number] : 9Acct:[id number] Age/Sex: 84 / FADM Date: 10/29/25 Loc: .HHCX Attending Dr: Ada CARSON Ordering Physician: Ada Allison Date of Service: 10/29/25 Procedure(s): XR chest 2V Accession Number(s): [id number] cc: Linda Vargas MD; Ada Allison Reason [...] 10/29/25 1255 DD/ 1230 TD/TT: 10/29/25 1232 Fiberglass Boat Finisher: us Aad Okhipo TEACHER CCLC IMG XR PROCEDURES Final Result * POCT Rapid Influenza B HUGGINS ID NOW (10/29/2025 10:31 AM EST) Influenza B Negative Negative, Indeterminate [facility] QC Media Lot # [id number] [facility] Lot# Expiration Date [facility] Swab 10/29/2025 10:3 1 AM EST us Ada Okhipo TEACHER CCLC POINT OF CARE TEST ENTER/EDIT ORDERABLES Final Result Performing Organization Address [facility] de Phone Number [facility] [address] [place] [address] [phone] * POCT Rapid Influenza A HUGGINS ID NOW (10/29/2025 10:25 AM EST) Influenza A Negative Negative, Indeterminate [facility] QC Media Lot # [id number] [facility] Lot# Expiration Date [facility] Swab 10/29/2025 10:2 5 AM EST us Ada Okhipo TEACHER CCLC POINT OF CARE TEST ENTER/EDIT ORDERABLES Final Result [facility] [address] [place] [phone] * POCT Rapid Strep A HUGGINS ID NOW (10/29/2025 10:25 AM EST) [facility] Rapid Strep A Screen Negative Negative, None Detected QC Media Lot # [id number] Lot# Expiration Date [id number] Swab 10/29/2025 10:2 5 AM EST Ada Okhipo TEACHER CCLC POINT OF CARE TEST ENTER/EDIT ORDERABLES Final Result * POCT Rapid Covid-19 BinaxNOW (10/29/2025 10:25 AM EST) [facility] Rapid COVID Ag Negative [facility] QC Media Lot # [id number] [facility] Lot# Expiration Date [id number] [facility] Swab 10/29/2025 10:2 5 AM EST Ada Beyond [employer] TEACHER CCLC POINT OF CARE TEST ENTER/EDIT ORDERABLES Final Result [facility] [address] [place] [phone] * (ABNORMAL) Lipid Panel, Standard (12/25/2024 10:29 AM EST) [facility] Triglycerides 322(H) <150 mg/dL [facility] Comment:Slight Lipemia.Amber able Triglyceride: less than 150 mg/dLBorderline High Triglyceride 150-199 mg/dLHigh Triglyceride: 200-499 mg/dLVery High Triglyceride: greater than or equal to 5OO mg/dL Cholesterol 123 <200 mg/dL [facility] Comment:Desirable Cholestero l: less than 200 mg/dLBorderline High Cholesterol: 200-239 mg/dLHigh Cholesterol: greater than 239 mg/dL LDL Cholesterol Calculated 27 <100 mg/dL [facility] Comment:Desirable LDL: less than 100 mg/dLNear Optimal/Above Optimal LDL: 110- 129 mg/dLBorderline High LDL: 130-159 mg/dLHigh LDL: 160-189 mg/dLVery High LDL: greater than or equal to 190 mg/dL HDL Cholesterol 32(L) >40 mg/dL [facility] Comment:Desirable HDL: great er than 40 mg/dL Note: This HDL assay may give artificially low results in patients with liver disease. Blood Venous blood specimen / Unknown 12/25/2024 10:29 AM EST 12/25/2024 1:59 PM EST Duyen Schwab MD LAB BLOOD ORDERABLES Final Resul t [facility] [address] [place] [phone] * (ABNORMAL) POCT A1C (12/25/2024 10:18 AM EST) Hemoglobin A1C 5.8 4.0 - 6.0 % QC Media Lot # Comment:[id number] Lot# Expiration Date Comment:09/01/2026 Blood 12/25/2024 10:1 8 AM EST Duyen Schwab MD POINT OF CARE TEST ENTER/EDIT OR DERABLES Final Result from Last 3 Months or Most Recently Relevant to Health Maintenance Insurance [facility] STANDARD [place] [phone] Care Teams Mail Order Sorter Relationship Specialty Start Date End Date Evi Thomson MD [address] [place] [address] PCP - General Family Medicine 03/13/19 Valerio Sweet, NickiD [address] [place] [address] Pharmacist Internal Medicine 11/02/22 [place] A 05/17/25
--- OUTSIDE RECORDS SUMMARY | 2025-11-07 11:46 | XMS_ITS | Encounter Summary ---
Author Organization [employer] Address 75 [facility] 7t [place] [address] Care Team Providers Care Neurosurgery Physician Name Role Phone Evi Thomson MD Primary Care Provider + Valerio Sweet PharmD Unavailable Reason for Visit * Reason Comments Med Change Request Encounter Details Date Type Department Care Team ([facility] st Contact Info) Description 06/22/2025 Refill [facility] 230 [place], [place] [phone] Evi Thomson MD 230 [place], [place] [phone] Social History Tobacco Use Types Packs/Day Years [...] Visit [facility] [address] [place] [address] Evi Thomson MD [address] [place] [address] documented as of this encounter Goals Goal [...] documented as of this encounter Care Teams Neurosurgery Physician Relationship Specialty Start Date End Date Evi Thomson MD [address] [place] [address] PCP - General Family Medicine 03/13/19 Valerio Sweet PharmD [address] [place] [address] Pharmacist Internal Medicine 11/02/22 [place] JOSUE 05/17/25 documented as of this encounter
--- OUTSIDE RECORDS SUMMARY | 2025-11-07 11:46 | XMS_ITS | Encounter Summary ---
Author Organization [employer] Address 75 [facility] 7t [place] [address] Care Team Providers Care Paste Thinner Name Role Phone Evi Thomson MD Primary Care Provider + Valerio Sweet PharmD Unavailable [phone] Reason for Visit * Reason Comments Med Refill Encounter Details Date Type Department Care Team ([facility] st Contact Info) Description 08/12/2024 Refill [facility] 230 [place], [place] [phone] Evi Thomson MD 230 [place], [place] [phone] Allergic rhinitis due to other allergic trigger, [...] Start Travel End [facility] 09/28/2025 10/16/2025 documented as of this encounter Plan of Treatment Upcoming Encounters Date Type Department Care Team (Late st Contact Info) Description 11/26/2025 9:15 AM EST Office Visit [facility] [address] [place] [address] Evi Thomson MD [address] [place] [address] documented as of this encounter Goals Goal Patient Goal Type Associated Problems Recent Progress Patient-Stated? Author Blood Pressure < 140/90 Blood Pressure 138/66( 025 10:21 AM EST) No Valerio Sweet, PharmD documented as of this encounter Visit Diagnoses Diagnosis Allergic rhinitis due to other allergic trigger, unspecified seasonality documented in this encounter Care Teams Paste Thinner Relationship Specialty Start Date End Date Evi Thomson MD [address] [place] [address] PCP - General Family Medicine 03/13/19 Valerio Sweet, PharmD [address] [place] [address] Pharmacist Internal Medicine 11/02[facility] documented as of this encounter
--- OUTSIDE RECORDS SUMMARY | 2025-11-07 11:46 | XMS_ITS | Encounter Summary ---
Author Organization [employer] Address 75 [facility] 7t [place] [address] Care Team Providers Care Customer Care Assistant Name Role Phone Evi Thomson MD Primary Care Provider + Valerio Sweet PharmD Unavailable [phone] Reason for Visit * Reason Comments Med Refill Encounter Details Date Type Department Care Team ([facility] st Contact Info) Description 04/12/2024 Refill [facility] MED[facility]INE 230 [place], [place] [phone] Evi Thomson MD [address] [place], [place] [phone] Postherpetic neuralgia Social History Tobacco Use Types [...] 9:15 AM EST Office Visit [facility] MEDICINE [address] [place] [address] Evi Thomson MD [address] [place] [address] documented as of this encounter Goals Goal Patient Goal Type Associated Problems Recent Progress Patient-Stated? Author Blood Pressure < 140/90 Blood Pressure 138/66( 025 10:21 AM EST) No Valerio Sweet, Karl documented as of this encounter Visit Diagnoses Diagnosis Postherpetic neuralgia Herpes zoster with other nervous system complications documented in this encounter Care Teams Customer Care Assistant Relationship Specialty Start Date End Date Evi Thomson MD [address] [place] [address] PCP - General Family Medicine 03/13/19 Valerio Sweet PharmD [address] [place] [address] Pharmacist Internal Medicine 11/02/22 [facility] 05/17/25 documented as of this encounter
--- OUTSIDE RECORDS SUMMARY | 2025-11-07 11:46 | XMS_ITS | Encounter Summary ---
Author Organization [facility] Address [address] [facility] 200 [place] [address] Phone Care Team Providers Care Manager Of Procurement Name Role Phone Evi Thomson MD Primary Care Provider [phone] Encounter Details Date Type Department Care Team ([facility] Contact Info) Description 02/11/2021 Orders Only [facility] [address] [facility] [address] [place] [address] ProviderFuentes MD Social History Tobacco [...] Upcoming Encounters Date Type Department Care Team ([facility] Contact Info) Description 01/17/2026 1:15 PM EST Office Visit [facility] [address] [place] [phone] Rikki Pratt MD [address] [facility] 204 [place] [address] documented as of this encounter Procedures Procedure Name Priority Date/Time Associated Diagnosis Comments EXT RESULT ENTRY Routine 02/11/2021 documented in this encounter Results * EXT RESULT ENTRY (02/11/2021) us Historical Provider LAB BLOOD ORDERABLES Clara l Result documented in this encounter Visit Diagnoses Not on filedocumented in this encounter Care Teams Manager Of Procurement Relationship Specialty Start Date End Date Evi Thomson MD [address] [place] [address] PCP - General 11/25/20 documented as of this encounter
[2025-11-07 12:18] VITALS: BP 137/73; PULSE 84; RESP 16; TEMP 36.8; O2SAT 96
== END 2025-11-07 12:18 | disposition home or self-care (01) ==
PROVIDERS: Registered Nurse Emergency; Emergency Provider Emergency Medicine; PCP Internal Medicine
DX: R20.2 Paresthesia of skin (principal); M79.601 Pain in right arm; R29.700 NIHSS score 0; I10 Essential (primary) hypertension; E78.5 Hyperlipidemia, unspecified; Z79.02 Long term (current) use of antithrombotics/antiplatelets; Z79.899 Other long term (current) drug therapy
CPT/HCPCS: 36415; 80053; 85025; 93971; 99282; 99284

== ENCOUNTER → 2025-11-07 10:52 | Outpatient (BNV) | payer MEDICARE, MEDICAID, SELFPAY | PROVIDERS: Emergency Provider Emergency Medicine; PCP Internal Medicine; Visit Provider Radiology Diagnostic Ultrasound | DX: M79.621 Pain in right upper arm (principal) | CPT/HCPCS: 93971 ==

== ENCOUNTER → 2025-11-14 14:30 | Outpatient (BNV) | payer MEDICARE, MEDICAID, SELFPAY | PROVIDERS: PCP Internal Medicine; Visit Provider Radiology Diagnostic Radiology | DX: E28.39 Other primary ovarian failure (principal) | CPT/HCPCS: 77081 ==

== ENCOUNTER 2025-11-14 14:31 | Outpatient (REF) | payer MEDICARE, MEDICAID, SELFPAY ==
--- NOTE | ~2025-11-14 | MM_ITS ---
EXAMINATION: DXA BONE DENSITY EXTREMITY HISTORY: M81.0 - Age-related osteoporosis without current pathological fracture TECHNIQUE: [employer] Dual energy absorptiometry (DEXA) of the lumbar spine, total left hip, femoral neck, and distal forearm was performed. COMPARISON: Comparison is made with the prior examination dated 12/16/2022. FINDINGS: The bone mineral density of the lumbar spine is 1.115 g/cm2, corresponding to a T-score of -0.5, and a Z-score of 1.3. This is indicative of normal bone mineral density. This represents a BMD change of 13.5% compared to the prior exam. This is statistically significant. The bone mineral density of the left total hip is 0.898 g/cm2, corresponding to a T-score of -0.9, and a Z-score of 1.4. This is indicative of normal bone mineral density. This represents a BMD change of 2.9% compared to the prior exam. This is not statistically significant. The bone mineral density of the left femoral neck is 0.833 g/cm2, corresponding to a T-score of -1.5, and a Z-score of 0.9. This is indicative of osteopenia. This represents a BMD change of 6.8% compared to the prior exam. The bone mineral density of the distal forearm is 0.737 g/cm2, corresponding to a T-score of -1.5, and a Z-score of 1.7. This is indicative of osteopenia. This represents a BMD change of 12.7% compared to the prior exam. This is statistically significant. FRACTURE RISK: The FRAX index suggests a ten year probability of major osteoporotic fracture of 11.2%, and of hip fracture 2.7%. MM/XR DEXA appendicular skeleton IMPRESSION: Based on bone mineral density, and according to World Health Organization (WHO) criteria, the diagnosis is consistent with osteopenia. Statistically, 68% of repeat scans fall within 1 SD (+/- 0.010 g/cm2 for AP spine L1-L4) and 1 SD (+/- 0.012 g/cm2 for femur total) FRAX is a trademark of the [employer] Met[employer], a World Health Organization (WHO) Collaborating Center. Electronically signed by: Sarthak Austin MD 11/20/2025 01:27 PM LISS HOANG
--- OUTSIDE RECORDS SUMMARY | 2025-11-14 15:39 | XMS_ITS | Encounter Summary ---
Author Organization [employer] Address 75 [facility] 7t [place] [address] Care Team Providers Care Transformer Stock Clerk Name Role Phone Evi Thomson MD Primary Care Provider + Valerio Sweet PharmD Unavailable [phone] Reason for Visit * Reason Comments Med Refill Encounter Details Date Type Department Care Team ([facility] st Contact Info) Description 09/10/2025 Refill [facility] 230 [place], [place] [phone] Norma Avitia DO [address] [place], [place] [phone] Allergic rhinitis due to other allergic trigger, [...] 9:15 AM EST Office Visit [facility] [address] [place] [address] Evi Thomson MD [address] [place] [address] documented as of this encounter Goals Goal [...] documented as of this encounter Care Teams Transformer Stock Clerk Relationship Specialty Start Date End Date Evi Thomson MD [address] [place] [address] PCP - General Family Medicine 03/13/19 Valerio Sweet, PharmD 230 [facility] [address] Pharmacist Internal Medicine 11/02/22 [place] JOSUE 05/17/25 documented as of this encounter
--- OUTSIDE RECORDS SUMMARY | 2025-11-14 15:39 | XMS_ITS | Encounter Summary ---
Author Organization [employer] Address 75 [facility] 7t [place] [address] Care Team Providers Care Outsole Cementer Name Role Phone Evi Thomson MD Primary Care Provider + Valerio Sweet PharmD Unavailable [phone] Reason for Visit * Reason Comments Med Refill Encounter Details Date Type Department Care Team ([facility] st Contact Info) Description 09/17/2025 Refill [facility] 230 [place], [place] [phone] Evi Thomson MD 230 [place], [place] [phone] Pure hypercholesterolemia Social History Tobacco Use Types [...] 9:15 AM EST Office Visit [facility] MED[facility] [address] [place] [address] Evi Thomson MD [address] [place] [address] documented as of this encounter Goals Goal [...] documented as of this encounter Care Teams Outsole Cementer Relationship Specialty Start Date End Date Evi Thomson MD [address] [place] [address] PCP - General Family Medicine 03/13/19 Valerio Sweet PharmD [address] [place] [address] Pharmacist Internal Medicine 11/02/22 [place] JOSUE 05/17/25 documented as of this encounter
--- OUTSIDE RECORDS SUMMARY | 2025-11-14 15:39 | XMS_ITS | Encounter Summary ---
Author Organization [employer] Address 75 [facility] 7t [place] [address] Care Team Providers Care Practice Performance Manager Name Role Phone Evi Thomson MD Primary Care Provider + Valerio Sweet PharmD Unavailable [phone] Reason for Visit * Reason Comments Med Change Request Encounter Details Date Type Department Care Team ([facility] st Contact Info) Description 06/22/2025 Refill [facility] 230 [place], [place] [phone] Evi Thomson MD 230 [place], [place] [phone] Social History Tobacco Use Types Packs/Day Years [...] EST Office Visit [facility] [address] [place] [address] Evi Thomson MD [address] [place] [address] documented as of this encounter Goals Goal [...] documented as of this encounter Care Teams Practice Performance Manager Relationship Specialty Start Date End Date Evi Thomson MD [address] [place] [address] PCP - General Family Medicine 03/13/19 Valerio Sweet PharmD [address] [place] [address] Pharmacist Internal Medicine 11/02/22 [place] JOSUE 05/17/25 documented as of this encounter
--- OUTSIDE RECORDS SUMMARY | 2025-11-14 15:39 | XMS_ITS | Encounter Summary ---
Author Organization [employer] Address 75 [facility] 7t [place] [address] Care Team Providers Care Vehicle And Equipment Cleaner Name Role Phone Evi Thomson MD Primary Care Provider + Valerio Sweet PharmD Unavailable [phone] Reason for Visit * Reason Onset Date Comments HDF/Triage 01/07/2023 Encounter Details Date Type Department Care Team ([facility] st Contact Info) Description 01/07/2023 Telephone [facility] MEDICINE 230 [place], [place] [phone] Evi Thomson MD 230 [place], [place] [phone] HDF/Triage Social History Tobacco Use Types Packs/Day [...] EDT Travel History Travel Start Travel End [facility] 09/28/2025 10/16/2025 COVID-19 Exposure Response Date [...] up appointment. Patient hospitalized at [facility] . Patient was admitted on 01/06/2023 and discharged on same day. Patient was advised will forward to triage nurse for follow up and appointment scheduling. Please contact pt son in law on [phone] documented in this encounter Plan of Treatment Upcoming Encounters Date Type Department Care Team (Late st Contact Info) Description 11/26/2025 9:15 AM EST Office Visit [facility] MEDICINE [address] [place] [address] Evi Thomson MD [address] [place] [address] documented as of this encounter Visit Diagnoses Not on filedocumented in this encounter Care Teams Vehicle And Equipment Cleaner Relationship Specialty Start Date End Date Evi Thomson MD [address] [place] [address] PCP - General Family Medicine 03/13/19 Valerio Sweet, NickiD [address] [place] [address] Pharmacist Internal Medicine 11/02/22 [facility] documented as of this encounter
--- OUTSIDE RECORDS SUMMARY | 2025-11-14 15:39 | XMS_ITS | Encounter Summary ---
Author Organization [employer] Address 75 [facility] 7t [place] [address] Care Team Providers Care Statue Maker Name Role Phone Evi Thomson MD Primary Care Provider + Valerio Sweet PharmD Unavailable [phone] Reason for Visit * Reason Comments Med Refill Encounter Details Date Type Department Care Team ([facility] st Contact Info) Description 09/10/2025 Refill [facility] MED[facility]INE 230 [place], [place] [phone] Evi Thomson MD 230 [place], [place] [phone] Pure hypercholesterolemia Social History Tobacco Use Types [...] Description 11/26/2025 9:15 AM EST Office Visit [facility] MED[facility]INE [address] [place] [address] Evi Thomson MD [address] [place] [address] documented as of this encounter Goals Goal [...] documented as of this encounter Care Teams Statue Maker Relationship Specialty Start Date End Date Evi Thomson MD [address] [place] [address] PCP - General Family Medicine 03/13/19 Valerio Sweet PharmD [address] [place] [address] Pharmacist Internal Medicine 11/02/22 [place] JOSUE 05/17/25 documented as of this encounter
--- OUTSIDE RECORDS SUMMARY | 2025-11-14 15:39 | XMS_ITS | Encounter Summary ---
Author Organization [employer] Address 75 [facility] 7t [place] [address] Care Team Providers Care Pipeman Name Role Phone Evi Thomson MD Primary Care Provider + Valerio Sweet PharmD Unavailable [phone] Encounter Details Date Type Department Care Team ([facility] st Contact Info) Description 11/24/2022 Orders Only [facility] 230 [place], [place] [phone] Evi Thomson MD 230 [place], [place] [phone] Hyperkalemia (Primary Dx) Social History Tobacco Use [...] hyperkalemia. Please call renal and ask that lpta calls me back to discuss hyperkalemia and possibility of lokelma or changing meds documented in this encounter Plan of Treatment Upcoming Encounters Date Type Department Care Team (Late st Contact Info) Description 11/26/2025 9:15 AM EST Office Visit [facility] 230 [place], [place] [phone] Evi Thomson MD 230 [place], [place] [phone] documented as of this encounter Procedures Procedure Name Priority Date/Time Associated Diagnosis Comments POTASSIUM Routine 11/27/2022 8:47 AM EST Hyperkalemia documented in this encounter Results * Potassium (11/27/2022 8:47 AM EST) Potassium 5.1 3.5 - 5.3 mmol/L [employer] Blood Venous blood specimen / Unknown 11/27/2022 8:47 AM EST 11/27/2022 8:48 AM EST Narrative [facility] - 11/27/2022 8:46 PM EST FASTING:YES FASTING: YES us Evi Thomson MD LAB BLOOD ORDERABLES Fin al Result [facility] [address] [facility], [place] [address] [employer] [place] [employer] 200 [facility], (Nl2) [place] [address] documented in this encounter Visit Diagnoses Diagnosis Hyperkalemia- Primary Hyperpotassemia documented in this encounter Care Teams Pipeman Relationship Specialty Start Date End Date Evi Thomson MD 230 [place] [address] PCP - General Family Medicine 03/13/19 Valerio Sweet, Karl [address] [place] [address] Pharmacist Internal Medicine 11/02/22 [place] A 05/17/25 documented as of this encounter
--- OUTSIDE RECORDS SUMMARY | 2025-11-14 15:39 | XMS_ITS | Encounter Summary ---
Author Organization [employer] Address 75 [facility] 7t [place] [address] Care Team Providers Care Surgical Supply Assistant Name Role Phone Evi Thomson MD Primary Care Provider + Valerio Sweet PharmD Unavailable [phone] Reason for Visit * Reason Onset Date Comments Med Refill 06/14/2025 Encounter Details Date Type Department Care Team ([facility] st Contact Info) Description 06/14/2025 Telephone [facility] MEDICINE 230 [place], [place] [phone] Evi Thomson MD 230 [place], [place] [phone] Med Refill Social History Tobacco Use Types [...] 10:23 AM EDT Lidocaine was sent to [facility] #[id number] on 06/12/25 #30 with 1 refill and Ropinirole isn't prescribed by PCP. * Telephone Encounter - Shyam Silverio - 06/14/2025 10:18 AM EDT TC from pt requesting medication refill. Medications needing refill : rOPINIRole (Requip) 1 MG tablet lidocaine (Lidoderm) 5 % patch To be sent to: [facility][id number] [address] [place] [address] documented in this encounter Plan of Treatment Upcoming Encounters Date Type Department Care Team ([facility] st Contact Info) Description 11/26/2025 9:15 AM EST Office Visit [facility] MEDICINE 230 [place] [address] Evi Thomson MD [address] [place] [address] documented as of this encounter Goals Goal [...] documented as of this encounter Care Teams Surgical Supply Assistant Relationship Specialty Start Date End Date Evi Thomson MD [address] [place] [address] PCP - General Family Medicine 03/13/19 Valerio Sweet, PharmD [address] [place] [address] Pharmacist Internal Medicine 11/02/22 [facility] 05/17/25 documented as of this encounter
--- OUTSIDE RECORDS SUMMARY | 2025-11-14 15:39 | XMS_ITS | Encounter Summary ---
Author Organization [employer] Address [address] [place] [address] 7 [place] [address] Care Team Providers Care Snuff Grinder Name Role Phone Evi Thomson MD Primary Care Provider + Valerio Sweet PharmD Unavailable [phone] Encounter Details Date Type Department Care Team (Late st Contact Info) Description 10/06/2022 Abstract [facility] [address] [place] [address] [phone] ProviderFuentes MD Social History Tobacco Use Types Packs/Day Years Used Date Smoking Tobacco: Never Assessed Comments Unknown Sex and Gender Information Value Date Recorded Sex Assigned at Female 09/14/2022 10:16 AM EDT Legal Sex Female 10:16 AM EDT Gender Identity Female 09/14/2022 10:16 AM EDT Sexual Orientation Straight 09/14/2022 10 :16 AM EDT Travel History Travel Start Travel End [facility] 09/28/2025 10/16/2025 documented as of this encounter Plan of Treatment Upcoming Encounters Date Type Department Care Team (Late st Contact Info) Description 11/26/2025 9:15 AM EST Office Visit [facility]INE 230 [place] [address] Evi Thomson MD 230 [place], [place] [phone] documented as of this encounter Visit Diagnoses Not on filedocumented in this encounter Care Teams Snuff Grinder Relationship Specialty Start Date End Date Evi Thomson MD [address] [place] [address] [phone] PCP - General Family Medicine 03/13/19 Valerio Sweet, NickiD [address] [place] [address] Pharmacist Internal Medicine 11/02/22 [place] JOSUE 05/17/25 documented as of this encounter
--- OUTSIDE RECORDS SUMMARY | 2025-11-14 15:39 | XMS_ITS | Clinical Summary ---
Author Organization [facility] Prior to 04/14/25 Address [address] [place] [address] Care Team Providers Care Extracorporeal Circulation Specialist Name Role Phone Evi Thomson MD Primary Care Provider [phone] Medications No known medications Active Problems No [...] age to complete this topic Care Teams Extracorporeal Circulation Specialist Relationship Specialty Start Date End Date Evi Thomson MD [address] [place] [phone] PCP - General Family Medicine 09/03/23
--- OUTSIDE RECORDS SUMMARY | 2025-11-14 15:39 | XMS_ITS | Encounter Summary ---
Author Organization [employer] Address [address] [place] [address] 7t [place] [address] Care Team Providers Care Strike Off Machine Operator Name Role Phone Evi Thomson MD Primary Care Provider + Valerio Sweet PharmD Unavailable [phone] Encounter Details Date Type Department Care Team (Late st Contact Info) Description 10/16/2022 Orders Only [facility] MEDICINE [address] [place] [address] [phone] Evi Thomson MD 230 [place], [place] [phone] Social History Tobacco Use Types Packs/Day Years [...] Description 11/26/2025 9:15 AM EST Office Visit [facility] MEDICINE [address] [place] [address] [phone] Evi Thomson MD [address] [place] [address] documented as of this encounter Visit Diagnoses Not on filedocumented in this encounter Care Teams Strike Off Machine Operator Relationship Specialty Start Date End Date Evi Thomson MD [address] [place] [address] PCP - General Family Medicine 03/13/19 Valerio Sweet, Karl [address] [place] [address] Pharmacist Internal Medicine 11/02/22 [place] A 05/17/25 documented as of this encounter
--- OUTSIDE RECORDS SUMMARY | 2025-11-14 15:40 | XMS_ITS | Encounter Summary ---
Author Organization [employer] Address [address] [facility] 7t [place] [address] Care Team Providers Care Hose Seamer Name Role Phone Evi Thomson MD Primary Care Provider + Valerio Sweet PharmD Unavailable [phone] Reason for Visit * Reason Comments Med Refill Encounter Details Date Type Department Care Team ([facility] st Contact Info) Description 08/12/2024 Refill [facility] [address] [place], [place] [phone] Evi Thomson MD [address] [place], [place] [phone] Allergic rhinitis due to other allergic trigger, [...] EDT Travel History Travel Start Travel End [facility] 09/28/2025 10/16/2025 documented as of this encounter Plan of Treatment Upcoming Encounters Date Type Department Care Team (Late st Contact Info) Description 11/26/2025 9:15 AM EST Office Visit [facility] [address] [place] [phone] Evi Thomson MD [address] [place] [phone] documented as of this encounter Goals Goal Patient Goal Type Associated Problems Recent Progress Patient-Stated? Author Blood Pressure < 140/90 Blood Pressure 138/66( 025 10:21 AM EST) No Valerio Sweet, PharmD documented as of this encounter Visit Diagnoses Diagnosis Allergic rhinitis due to other allergic trigger, unspecified seasonality documented in this encounter Care Teams Hose Seamer Relationship Specialty Start Date End Date Evi Thomson MD [address] [place] [phone] PCP - General Family Medicine 03/13/19 Valerio Sweet, PharmD [address] [place] [phone] Pharmacist Internal Medicine 11/02/[facility] documented as of this encounter
--- OUTSIDE RECORDS SUMMARY | 2025-11-14 15:40 | XMS_ITS | Encounter Summary ---
Author Organization [employer] Address [address] [facility] 7t [place] [address] Care Team Providers Care Neuro Intensivist Physician Name Role Phone Evi Thomson MD Primary Care Provider + Valerio Sweet PharmD Unavailable [phone] Reason for Visit * Reason Comments Med Refill Encounter Details Date Type Department Care Team ([facility] st Contact Info) Description 04/12/2024 Refill [facility] [address] [place], [place] [phone] Evi Thomson MD [address] [place], [place] [phone] Postherpetic neuralgia Social History Tobacco Use Types [...] Description 11/26/2025 9:15 AM EST Office Visit [facility] [address] [place] [phone] Evi Thomson MD [address] [place] [phone] documented as of this encounter Goals Goal Patient Goal Type Associated Problems Recent Progress Patient-Stated? Author Blood Pressure < 140/90 Blood Pressure 138/66( 025 10:21 AM EST) No Valerio Sweet, Karl documented as of this encounter Visit Diagnoses Diagnosis Postherpetic neuralgia Herpes zoster with other nervous system complications documented in this encounter Care Teams Neuro Intensivist Physician Relationship Specialty Start Date End Date Evi Thomson MD [address] [place] [phone] PCP - General Family Medicine 03/13/19 Valerio Sweet PharmD [address] [place] [phone] Pharmacist Internal Medicine 11/02/22 [facility] 05/17/25 documented as of this encounter
--- OUTSIDE RECORDS SUMMARY | 2025-11-14 15:40 | XMS_ITS | Encounter Summary ---
Author Organization [facility] Address [address] [facility] [address] [place] [address] Phone Care Team Providers Care Windows Systems Architect Name Role Phone Evi Thomson MD Primary Care Provider [phone] Encounter Details Date Type Department Care Team ([facility] Contact Info) Description 02/11/2021 Orders Only [facility] [address] [facility] [address] [place] [address] ProviderFuentes MD Social History Tobacco [...] Upcoming Encounters Date Type Department Care Team ([facility] Contact Info) Description 01/17/2026 1:15 PM EST Office Visit [facility] [address] [place]USMAN [phone] Rikki Pratt MD [address] [facility] [address] [place] [address] documented as of this encounter Procedures Procedure Name Priority Date/Time Associated Diagnosis Comments EXT RESULT ENTRY Routine 02/11/2021 documented in this encounter Results * EXT RESULT ENTRY (02/11/2021) us Historical Provider LAB BLOOD ORDERABLES Clara l Result documented in this encounter Visit Diagnoses Not on filedocumented in this encounter Care Teams Windows Systems Architect Relationship Specialty Start Date End Date Evi Thomson MD [address] [place] [phone] PCP - General 11/25/20 documented as of this encounter
--- OUTSIDE RECORDS SUMMARY | 2025-11-14 15:40 | XMS_ITS | Clinical Summary ---
Author Organization [facility] Address [address] [place] [phone] Phone Care Team Providers Care Patternmaker Plastics Name Role Phone Evi Thomson MD Primary Care Provider [phone] Allergies No known active allergies Medications atorvastatin [...] Visit [facility] [address] [facility] [address] Rikki Pratt MD [address] [facility] [address] [place] [address] Health Maintenance Due Date Last Done Comments Influenza Vaccine (#1) 2025 , 08/24/2019 Pneumococcal Vaccine: 50+ Years Completed 04/04/2024 Pneumococcal Vaccine: Peds (0 to 5 Years) and At-Risk Patients (6 to 49 Years) Discontinued 04/04/2024 Hepatitis B Vaccine Aged Out No longe r eligible based on patient's age to complete this topic Insurance [place] Care Teams [employer] Relationship Specialty Start Date End Date Evi hTomson MD [address] [place] [phone] PCP - General 11/25/20
--- OUTSIDE RECORDS SUMMARY | 2025-11-14 15:40 | XMS_ITS | Clinical Summary ---
Author Organization [employer] Address [address] [facility] [address] [place] [address] Care Team Providers Care Technical Translator Name Role Phone Evi Thomson MD Primary Care Provider + Valerio Sweet PharmD Unavailable [phone] Allergies No known active allergies Medications * This document contains information received from the source organization and may not represent a complete record from that organization. methIMAzole (Tapazole) 5 MG tablet Take 0.5 tablets by mouth 1 (one) time each day. Active Elastic Bandages & Supports (B & B Knee Brace/Supports) [facility] 2019 Active Blood Pressure Monitoring (Omron 3 [...] LOS JOSEPH 90 tablet 3 2024 Active albuterol 108 (90 Base) MCG/ACT inhalerIndications:Blanca [...] CRUSH, DISSOLVE AND/OR CHEW. 120 tablet 6 10/29 Discontinued( Reorder (will not trigger notification to Pharmacy)) trimethoprim-polymyxin b (Polytrim) ophthalmic solutionIndications:Ac tribe bacterial conjunctivitis of both eyes Administer 1 drop into affected eye(s) 4 times daily for 10 days. 10 mL 025 12:28 PM EST 11/08 Hospital, Clinic, or Other Facility Administered Medication [...] placement and feels safer. Past experiences in alf facilities are causing distress in her mental [...] of major depressive disorder without prior episode ([facility]) 04/19/2025 Assessment & Plan (06/12/2025 2:38 PM [...] community programs and could be [facility]) - will f/u next visit to [...] AM EDT): Pt will be traveling to [facility] for the for her child. [...] visit. RBS wnl Will reschedule appointment w/ telecommunicator when she returns form her trip from [facility] Fu 4-6 m Assessment & Plan (09/09/2023 9:44 AM EDT): Controlled. A1c is at goal. Encourage to remain hydrated at all times and I will refer to telecommunicator, counseled re more frequent low calorie/carb meals. [...] EDT): Partial improvement after PT at [facility], I will refer to orthopedic [...] house keeping), will refer for evaluation of [employer] - dicussed with pt regarding risk of [...] especially given history of hyperkalemia Follow-up with deli associate, continue benazepril Assessment & Plan (05/24/2024 12:32 [...] Provider, Generic External Data 11/01/2025 Results Follow-Up [facility] [address] [place] [address] Evi Thomson MD CTA Chest PE Protocal 10/30/2025 Orders Only GENERIC EXTERNAL DATA DEPARTMENT Provider, Generic External Data 10/30/2025 Telephone [facility] [address] [place] [address] Evi Thomson MD Nurse Triage 10/29/2025 10:30 AM EST Office Visit [facility] [address] [place] [phone] Ada Allison FNP Upper respiratory tract infection, unspecified type (Primary Dx); Sore throat (viral); Myalgia; Other chest pain; Shortness of breath; Acute bacterial conjunctivitis of both eyes 10/29/2025 Travel 09/28/[address] [address] Evi Thomson MD recall 09/19/2025 Orders Only GENERIC EXTERNAL DATA DEPARTMENT Provider, Generic External Data 09/17/2025 Refill [facility] [address] [place] [address] Evi Thomson MD Pure hypercholesterolemia 09/11/2025 Telephone [facility] [address] [place] [address] Evi Thomson MD Med Refill 09/10/2025 Refill [facility] [address] [place] [phone] Norma Avitia DO Allergic rhinitis due to other allergic trigger, unspecified seasonality 09/10/2025 Refill [facility] [address] [place] [phone] Evi Thomson MD Pure hypercholesterolemia 08/22/2025 Patient Outreach [address] [address] Evi Thomson MD Medicare Annual Wellness Visit Initial (Annual wellness visit unscheduled) 08/17/2025 10:30 AM EDT Office Visit [facility] [address] [place] [phone] Evi Thomson MD Major depressive disorder in remission, unspecified whether recurrent (CMS/HCC) (Primary Dx); PTSD (post-traumatic stress disorder); Lateral epicondylitis of left elbow; Benign hypertension; Encounter for immunization 08/17/2025 Travel 08/16/[address] [address] Evi Thomson MD Chart Prep 08/14/2025 Refill [facility] [address] [place] [address] Margarita Reyes MD from Last 3 Months Immunizations Immunization [...] End [facility] 09/28/2025 10/16/2025 Last Filed Vital [...] Office Visit [facility] [address] [place] [phone] Evi Thomson MD [address] [place] [address] Health Maintenance Due Date Last Done Comments [...] EST) 11/07/2025 11:1 2 AM EST Narrative [facility] - 11/07/2025 11:41 AM EST [place] [address] Ultrasound Report Signed Patient: Linda Carranza MR# : [id number] : 1940 Acct:[id number] Age/Sex: 84 / F ADM Date: 11/07/25 Loc: .ED Attending Dr: Ordering Physician: Fiona Oconnell NP Date of Service: 11/07/25 Procedure(s): US venous duplex UE RT Accession Number(s): [id number] cc: Evi Thomson MD; Fiona Oconnell NP [...] 11/07/25 1138 DD/ 1112 TD/TT: 11/07/25 1124 Tapper Shank: Procedure Note Donotuseinterpreter, Image - 11/07/[address] [address] Ultrasound Report Signed Patient: Linda CarranzaMR# : [id number] : 9Acct:[id number] Age/Sex: 84 / FADM Date: 11/07/25 Loc: .ED Attending Dr: Ordering Physician: Fiona Oconnell NP Date of Service: 11/07/25 Procedure(s): US venous duplex UE RT Accession Number(s): [id number] cc: Evi Thomson MD; Fiona Oconnell NP [...] 11/07/25 1138 DD/ 1112 TD/TT: 11/07/25 1124 Tapper Shank: HB us [facility] External Provider CV VASC ULAR PROCEDURES Edited Result - Final [facility] [address] [place] [address] * (ABNORMAL) CBC auto differential (11/07/2025 11:01 AM EST) Only the most recent of2 resultswithin the time period is included. White Blood Count 8.4 4.8 - 10.8 X10*3/uL [facility] Red Blood Count 5.23 4.20 - 5.50 X10*6/uL [facility] Hemoglobin 13.7 12.0 - 16.0 g/dl [facility] Hematocrit 42.7 37.0 - 47.0 % [facility] Mean Corpuscular Volume 81.6 80.0 - 98.0 fL [facility] Mean Corpuscular Hemoglobin 26.2(L) 27.0 - 33.0 pg [facility] Mean Corpuscular HGB Conc 32.1 31.0 - 35.0 g/dl [facility] Red Cell Distribution Width 14.0 11.0 - 16.0 % [facility] Platelet Count 222 160 - 400 X10*3/uL [facility] Mean Platelet Volume 10.1 9.4 - 12.3 fL [facility] Neutrophils Percent Auto 66.3 45 - 73 % [facility] Imm Gran Pct Auto 0.7(H) 0.0 - 0.4 % [facility] Lymphocytes Percent Auto 23.4 20 - 40 % [facility] Monocytes Percent Auto 8.1 2 - 11 % [facility] Eosinophils Percent Auto 1.3 0 - 4 % [facility] Basophils Percent Auto 0.2 0 - 2 % [facility] NRBC Pct Auto 0.0 0.0 - 0.2 /100WBC [facility] Neutrophils Absolute Auto 5.5 2.0 - 8.3 x10*3/uL [facility] Imm Gran Abs Auto 0.06(H) 0.00 - 0.03 X10*3/uL [facility] Lymphocytes Absolute Auto 2.0 1.2 - 4.9 X10*3/uL [facility] Monocytes Absolute Auto 0.7 0.1 - 1.2 X10*3/uL [facility] Eosinophils Absolute Auto 0.1 0.0 - 0.4 X10*3/uL [facility] Basophils Absolute Auto 0.0 0.0 - 0.2 X10*3/uL [facility] NRBC Abs Auto 0.000 0.0 - 0.012 X10*3/uL [facility] 11/07/2025 11:0 1 AM EST 11/07/2025 11:04 AM EST us Generic External Data Provider LAB BLOOD ORDERAB LES Final Result [facility] [address] [place] [phone] * (ABNORMAL) Comprehensive Metabolic Panel (11/07/2025 11:01 AM EST) Sodium 138 135 - 145 mmol/L [facility] Potassium 5.0 3.3 - 5.1 mmol/L [facility] Chloride 104 96 - 108 mmol/L [facility] Carbon Dioxide 26 22 - 29 mmol/L [facility] Anion Gap 13 12 - 20 [facility] Urea Nitrogen (BUN) 23(H) 9 - 16 mg/dL [facility] Creatinine, Serum 1.28 0.5 - 1.4 mg/dL [facility] Creatinine Clr Calc Pharmacy 25.2 [facility] Comment:Provided height and weight: 144.78 cm,68.946 kg.eGFR (calculated from the MDRD study equation) and eCrCl(calculated from the Cockcroft-Gault equation) are based ondifferent parameters and may not yield comparable results.If eCrCl result is absurd, please check patient'sheight/weight. Estimated Glomerular Filt Rate 40 [facility] Comment:Chronic Kidney Disea se: Estimated GFR < 60 mL/min/1.46g0Kitcqh Kidney Disease: Estimated GFR < 15 mL/min/1.73m2 Glucose 110 60 - 115 mg/dL [facility] Calcium 9.4 8.4 - 10.2 mg/dL [facility] Bilirubin, Total 0.8 0.0 - 1.0 mg/dL [facility] Aspartate Amino Transferase 18 5 - 31 U/L [facility] Alanine Aminotransferase 20 0 - 31 U/L [facility] Total Protein 7.4 6.5 - 8.0 g/dL [facility] Albumin Level 3.8 3.5 - 5.0 g/dL [facility] Alkaline Phosphatase 73 39 - 117 U/L [facility] 11/07/2025 11:0 1 AM EST 11/07/2025 11:04 AM EST Generic External Data Provider LAB BLOOD ORDERAB LES Final Result Performing Organization Address [facility] Phone Number [facility] [address] [place] [address] [phone] * D Dimer High Sensitivity (10/30/2025 2:44 PM EST) D Dimer High Sensitivity 327 NG/ML [facility] Comment:D-DIMER HS REFERENCE RANGENote: Our assay reports D-Dimer Units (D- DU).The cut-off value for venous thromboembolic (VTE) disease is230 ng/mL. This value has a very high negative predictivevalue when the patient has a low to moderate clinicalprobability of VTE.The upper limit of normal is 243 ng/mL. 10/30/2025 2:44 PM EST 10/30/2025 2:49 PM EST Generic External Data Provider LAB BLOOD ORDERAB LES Final Result Performing Organization Address [facility] Co de Phone Number [facility] [address] [place] [phone] * CTA Chest PE Protocal (10/30/2025 2:12 PM EST) Anatomical Region Laterality Modality Body, Chest Computed Tomogra phy 10/30/2025 2:12 PM EST Narrative 10/30/2025 3:06 PM EST [address] [address] [address] Scan Report Signed Patient: Linda Carranza MR# : [id number] : 1940 Acct:[id number] Age/Sex: 84 / F ADM Date: 10/30/25 Loc: HO.ED Attending Dr: Ordering Physician: Ayde Lund Date of Service: 10/30/25 Procedure(s): CT angio chest PE protocol Accession Number(s): [id number] cc: Evi Thomson MD; Ayde Lund Report Number: [id number]: Total DLP = 0.00 mGy-cm Reason for [...] body of the report. Electronically signed by: Bleu Suero MD 10/30/2025 03:03 PM [facility] Dictated By: Blue Suero MD Signed By: <Electronically signed by Blue Suero MD in OV> 10/30/25 1503 DD/ 1412 TD/TT: 10/30/25 1435 Tapper Shank: Procedure Note Donotuseinterpreter, Image - 10/30/[address] [address] [address] Scan Report Signed Patient: Linda CarranzaMR# : [id number] : 9Acct:[id number] Age/Sex: 84 / FADM Date: 10/30/25 Loc: HO.ED Attending Dr: Ordering Physician: Ayde Lund Date of Service: 10/30/25 Procedure(s): CT angio chest PE protocol Accession Number(s): [id number] cc: Evi Thomson MD; Ayde Lund Report Number: [id number]: Total DLP = 0.00 mGy-cm Reason for [...] MD 10/30/2025 03:03 PM EST Dictated By: lBue Suero MD Signed By: <Electronically signed by Blue Suero MD in OV> 10/30/25 1503 DD/ 1412 TD/TT: 10/30/25 1435 Tapper Shank: [facility] External Provider IMG CT PROCEDURES Edited Result - Final * CT Head w/o Contrast (10/30/2025 2:12 PM EST) Anatomical Region Laterality Modality Head, Neck Computed Tomogra phy 10/30/2025 2:12 PM EST Narrative 10/30/2025 2:48 PM EST [address] [address] [address] Scan Report Signed Patient: Linda Carranza MR# : [id number] : 1940 Acct:[id number] Age/Sex: 84 / F ADM Date: 10/30/25 Loc: HO.ED Attending Dr: Ordering Physician: Ayde Lund Date of Service: 10/30/25 Procedure(s): CT head/brain wo IV con Accession Number(s): [id number] cc: Evi Thomson MD; Ayde Lund Report Number: [id number]: Total DLP = 910.00 mGy-cm Reason for [...] by: Blue Suero MD 10/30/2025 02:45 PM [facility] Dictated By: Blue Suero MD Signed By: <Electronically signed by Blue Suero MD in OV> 10/30/25 1445 DD/ 1412 TD/TT: 10/30/25 1435 Tapper Shank: Procedure Note Donotuseinterpreter, Image - 10/30/[address] [place] [address] [address] Scan Report Signed Patient: Linda Carranza# : [id number] : 9Acct:[id number] Age/Sex: 84 / FADM Date: 10/30/25 Loc: HO.ED Attending Dr: Ordering Physician: Ayde Lund Date of Service: 10/30/25 Procedure(s): CT head/brain wo IV con Accession Number(s): [id number] cc: Evi Thomson MD; Ayde Lund Report Number: [id number]: Total DLP = 910.00 mGy-cm Reason for [...] 10/30/25 1445 DD/ 1412 TD/TT: 10/30/25 1435 Tapper Shank: [facility] External Provider IMG CT PROCEDURES Edited Result - Final * Blood Culture (Second) (10/30/2025 12:50 PM EST) Blood Venous blood specimen / Unknown 10/30/2025 12:50 PM EST 10/30/2025 12:59 PM EST Comment:Blood Narrative [facility] - 11/04/2025 3:00 PM EST Blood Culture (Second) No growth after 5 days. Specimen Source: Blood us Generic External Data Provider LAB MICROBIOLOGY - GENERAL ORDERABLES Final Result Performing Organization Address [facility] Co de Phone Number [facility] [address] [place] [phone] * Blood Culture (First) (10/30/2025 12:41 PM EST) Blood Venous blood specimen / Unknown 10/30/2025 12:41 PM EST 10/30/2025 12:46 PM EST Comment:Blood Narrative [facility] - 11/04/2025 2:46 PM EST Blood Culture (First) No growth after 5 days. Specimen Source: Blood Generic External Data Provider LAB MICROBIOLOGY - GENERAL ORDERABLES Final Result Performing Organization Address [facility] Co de Phone Number [facility] [address] [place] [phone] * Lactic Acid (10/30/2025 12:41 PM EST) Lactic Acid 1.0 0.5 - 2.0 mmol/L [facility] 10/30/2025 12:4 1 PM EST 10/30/2025 12:52 PM EST [facility] External Data Provider LAB BLOOD ORDERAB LES Final Result Performing Organization Address [facility] de Phone Number [facility] [address] [place] [phone] * High Sensitivity Troponin I (10/30/2025 11:56 AM EST) TROPONIN I HIGH SENSITIVITY 5.7 <3.5 - 17.0 ng/L [facility] Comment:The Huggins high sens itivity Troponin-I results should beused in conjunction with other diagnostic information suchas ECG, clinical observations and information, and patientsymptoms to aid in the diagnosis of [place]. 10/30/2025 11:5 6 AM EST 10/30/2025 12:00 PM EST Generic External Data Provider LAB BLOOD ORDERAB LES Final Result Performing Organization Address [facility] Co de Phone Number [facility] [address] [place] [phone] * SARS-CoV-2 RNA, Influenza A/B, and RSV RNA, Ql NAAT (10/30/2025 11:56 AM EST) Influenza A PCR NEGATIVE Negative [facility] Influenza B PCR NEGATIVE Negative [facility] Resp Syncy Virus RNA Qual PCR NEGATIVE Negative [facility] SARS COV2 PCR NEGATIVE Negative [facility] Comment:All test results mus t [...] use by authorized laboratories.Testing performed on the [employer] GeneXpert utilizingreal-time RT-PCR.All SARS CoV2 and positive influenza A/B results arereported to [facility]. 10/30/2025 11:5 6 AM EST 10/30/2025 12:00 PM EST Generic External Data Provider LAB MICROBIOLOGY - GENERAL ORDERABLES Final Result Performing Organization Address [facility] Co de Phone Number [facility] [address] [place] [phone] * (ABNORMAL) NT-proBNP (10/30/2025 11:56 AM EST) NT-proBNP 356.2(H) <300 pg/mL [facility] Comment:Reference Range:Age Group (years) NT-proBNP (pg/ml) InterpretationAll <300 Negative: HF unlikelyFor patients presenting to the ED with clinical suspicion ofnew onset or worsening HF, see below:18 to <50 >299.9 to <450.0 Grayzone: [id number] to 75 >299.9 to <900.0 other causes of>75 >299.9 to <1800.0 NT-proBNP jxoitpesx66 to <50 >449.9 Positive: HF ppkuzy89-50 >899.9>75 >1799.9Note: Elevated NT-proBNP levels should be interpreted inthe context of other clinical information. 10/30/2025 11:5 6 AM EST 10/30/2025 12:00 PM EST Generic External Data Provider LAB BLOOD ORDERAB LES Final Result Performing Organization Address [facility]/ZIP Co de Phone Number [facility] [address] [place] [phone] * Magnesium (10/30/2025 11:56 AM EST) Magnesium 2.1 1.6 - 2.6 mg/dL [facility] 10/30/2025 11:5 6 AM EST 10/30/2025 12:00 PM EST Generic External Data Provider LAB BLOOD ORDERAB LES Final Result Performing Organization Address [facility] Co de Phone Number [facility] [address] [place] [phone] * Hepatic Function Panel (10/30/2025 11:56 AM EST) Bilirubin, Total 0.9 0.0 - 1.0 mg/dL [facility] Bilirubin, Direct 0.3 0.0 - 0.5 mg/dL [facility] Aspartate Amino Transferase 19 5 - 31 U/L [facility] Alanine Aminotransferase 11 0 - 31 U/L [facility] Total Protein 7.4 6.5 - 8.0 g/dL [facility] Albumin Level 3.8 3.5 - 5.0 g/dL [facility] Alkaline Phosphatase 75 39 - 117 U/L [facility] 10/30/2025 11:5 6 AM EST 10/30/2025 12:00 PM EST us Generic External Data Provider LAB BLOOD ORDERAB LES Final Result Performing Organization Address [facility]/ZIP Co de Phone Number [facility] [address] [place] [phone] * (ABNORMAL) Basic Metabolic Panel (10/30/2025 11:56 AM EST) Only the most recent of2 resultswithin the time period is included. Sodium 137 135 - 145 mmol/L [facility] Potassium 4.5 3.3 - 5.1 mmol/L [facility] Chloride 105 96 - 108 mmol/L [facility] Carbon Dioxide 26 22 - 29 mmol/L [facility] Anion Gap 11(L) 12 - 20 [facility] Urea Nitrogen (BUN) 18(H) 9 - 16 mg/dL [facility] Creatinine, Serum 1.08 0.5 - 1.4 mg/dL [facility] Creatinine Clr Calc Pharmacy TNP [facility] Comment:Unable to calculate eCrCL; all parameters not provided. Estimated Glomerular Filt Rate 48 [facility] Comment:Chronic Kidney Disea se: Estimated GFR < 60 mL/min/1.97l8Tvorgf Kidney Disease: Estimated GFR < 15 mL/min/1.73m2 Glucose 151(H) 60 - 115 mg/dL [facility] Calcium 9.0 8.4 - 10.2 mg/dL [facility] 10/30/2025 11:5 6 AM EST 10/30/2025 12:00 PM EST us Generic External Data Provider LAB BLOOD ORDERAB LES Final Result Performing Organization Address City/[facility]/ZIP Co de Phone Number [facility] [address] [place] [phone] * XR Chest 1 View (10/30/2025 11:55 AM EST) Anatomical Region Laterality Modality Chest Radiographic Camille ging 10/30/2025 11:5 5 AM EST Narrative 10/30/2025 12:20 PM EST [address] [address] XRay Report Signed Patient: Linda Carranza MR# : [id number] : 1940 Acct:[id number] Age/Sex: 84 / F ADM Date: 10/30/25 Loc: HO.ED Attending Dr: Ordering Physician: Ashley Cevallos DO Date of Service: 10/30/25 Procedure(s): XR chest 1V Accession Number(s): [id number] cc: Evi Thomson MD; Ashley Cevallos DO [...] by: Blue Suero MD 10/30/2025 12:18 PM [facility] Dictated By: Blue Suero MD Signed By: <Electronically signed by Blue Suero MD in OV> 10/30/25 1218 DD/ 1155 TD/TT: 10/30/25 1200 Tapper Shank: Procedure Note Donotuseinterpreter, Image - 10/30/[address] [address] XRay Report Signed Patient: Linda CarranzaMR# : [id number] : 1940cct:[id number] Age/Sex: 84 / FADM Date: 10/30/25 Loc: HO.ED Attending Dr: Ordering Physician: Ashley Cevallos DO Date of Service: 10/30/25 Procedure(s): XR chest 1V Accession Number(s): [id number] cc: Evi Thomson MD; Ashley Cevallos DO [...] Blue Suero MD 10/30/2025 12:18 PM EST RP Dictated By: Blue Suero MD Signed By: <Electronically signed by Blue Suero MD in OV> 10/30/25 1218 DD/ 1155 TD/TT: 10/30/25 1200 Tapper Shank: [facility] External Provider IMG XR PROCEDURES Edited Result - Final * XR Chest 2 Views (10/29/2025 12:30 PM EST) Anatomical Region Laterality Modality Chest Radiographic Camille ging 10/29/2025 12:3 0 PM EST Narrative 10/29/2025 12:58 PM EST [facility] [address] [place] [address] XRay Report Signed Patient: Linda Carranza MR# : [id number] : 1940 Acct:[id number] Age/Sex: 84 / F ADM Date: 10/29/25 Loc: HO.HHCX Attending Dr: Ada CARSON Ordering Physician: Ada Allison Date of Service: 10/29/25 Procedure(s): XR chest 2V Accession Number(s): [id number] cc: Linda Vargas MD; Ada Allison Reason [...] 10/29/25 1255 DD/ 1230 TD/TT: 10/29/25 1232 Tapper Shank: Procedure Note Donotuseinterpreter, Image - 10/29/2025 [place] [address] XRay Report Signed Patient: Tere,LindaMR# : [id number] : 9Acct:[id number] Age/Sex: 84 / FADM Date: 10/29/25 Loc: .HHCX Attending Dr: Ada CARSON Ordering Physician: Ada Allison Date of Service: 10/29/25 Procedure(s): XR chest 2V Accession Number(s): [id number] cc: Linda Vargas MD; Ada Allison Reason [...] Lopez MD Signed By: <Electronically signed by Ty Spencer OV> 10/29/25 1255 DD/ 1230 TD/TT: 10/29/25 1232 Tapper Shank: us Ada Okhipo ALUMINUM MOLDER IMG XR PROCEDURES Final Result * POCT Rapid Influenza B HUGGINS ID NOW (10/29/2025 10:31 AM EST) [facility] Influenza B Negative Negative, Indeterminate [facility] QC Media Lot # [id number] [facility] Lot# Expiration Date [facility] Swab 10/29/2025 10:3 1 AM EST us Ada Okhipo ALUMINUM MOLDER POINT OF CARE TEST ENTER/EDIT ORDERABLES Final Result Performing Organization Address City/[facility] Co de Phone Number [facility] [address] [place] [phone] * POCT Rapid Influenza A HUGGINS ID NOW (10/29/2025 10:25 AM EST) [facility] Influenza A Negative Negative, Indeterminate [facility] QC Media Lot # [id number] [facility] Lot# Expiration Date [facility] Swab 10/29/2025 10:2 5 AM EST us Ada Okhipo ALUMINUM MOLDER POINT OF CARE TEST ENTER/EDIT ORDERABLES Final Result Performing Organization Address City/[facility] Co de Phone Number [facility] [address] [place] [phone] * POCT Rapid Strep A HUGGINS ID NOW (10/29/2025 10:25 AM EST) [facility] Rapid Strep A Screen Negative Negative, None Detected QC Media Lot # [id number] Lot# Expiration Date , Swab 10/29/2025 10:2 5 AM EST Ada Okhipo ALUMINUM MOLDER POINT OF CARE TEST ENTER/EDIT ORDERABLES Final Result * POCT Rapid Covid-19 BinaxNOW (10/29/2025 10:25 AM EST) [facility] Rapid COVID Ag Negative [facility] QC Media Lot # [id number] [facility] Lot# Expiration Date [id number] [facility] Swab 10/29/2025 10:2 5 AM EST Ada BitMethodhipo ALUMINUM MOLDER POINT OF CARE TEST ENTER/EDIT ORDERABLES Final Result Performing Organization Address City/State/[facility] Co de Phone Number [facility] [address] [place] [phone] * (ABNORMAL) Lipid Panel, Standard (12/25/2024 10:29 AM EST) [facility] Triglycerides 322(H) <150 mg/dL [facility] Comment:Slight Lipemia.Amber able Triglyceride: less than 150 mg/dLBorderline High Triglyceride 150-199 mg/dLHigh Triglyceride: 200-499 mg/dLVery High Triglyceride: greater than or equal to 5OO mg/dL Cholesterol 123 <200 mg/dL [facility] Comment:Desirable Cholestero l: less than 200 mg/dLBorderline High Cholesterol: 200-239 mg/dLHigh Cholesterol: greater than 239 mg/dL LDL Cholesterol Calculated 27 <100 mg/dL [facility] Comment:Desirable LDL: less than 100 mg/dLNear Optimal/Above Optimal LDL: 110- 129 mg/dLBorderline High LDL: 130-159 mg/dLHigh LDL: 160-189 mg/dLVery High LDL: greater than or equal to 190 mg/dL HDL Cholesterol 32(L) >40 mg/dL [facility] Comment:Desirable HDL: great er than 40 mg/dL Note: This HDL assay may give artificially low results in patients with liver disease. Blood Venous blood specimen / Unknown 12/25/2024 10:29 AM EST 12/25/2024 1:59 PM EST Duyen Schwab MD LAB BLOOD ORDERABLES Final Resul t [facility] [address] [place] [phone] * (ABNORMAL) POCT A1C (12/25/2024 10:18 AM EST) Hemoglobin A1C 5.8 4.0 - 6.0 % QC Media Lot # Comment:[id number] Lot# Expiration Date Comment:09/01/2026 Blood 12/25/2024 10:1 8 AM EST Duyen Schwab MD POINT OF CARE TEST ENTER/EDIT OR DERABLES Final Result from Last 3 Months or Most Recently Relevant to Health Maintenance Insurance [facility] STANDARD MEDICARE Care Teams Technical Translator Relationship Specialty Start Date End Date Evi Thomson MD [address] [place] [phone] PCP - General Family Medicine 03/13/19 Valerio Sweet, NickiD [address] [place] [phone] Pharmacist Internal Medicine 11/02/22 Olimpia SPENCERA 05/17/25
--- OUTSIDE RECORDS SUMMARY | 2025-11-14 15:40 | XMS_ITS | Encounter Summary ---
Author Organization [employer] Address [address] [facility] 7t [place] [address] Care Team Providers Care House Piping Inspector Name Role Phone Evi Thomson MD Primary Care Provider + Valerio Sweet PharmD Unavailable [phone] Encounter Details Date Type Department Care Team ([facility] st Contact Info) Description 08/10/2024 Telephone [facility] [address] [place], [place] [phone] Evi Thomson MD [address] [place], [place] [phone] Social History Tobacco Use Types Packs/Day Years [...] Description 11/26/2025 9:15 AM EST Office Visit [facility] [address] [place] [phone] Evi Thomson MD [address] [place] [address] documented as of this encounter Goals Goal Patient Goal Type Associated Problems Recent Progress Patient-Stated? Author Blood Pressure < 140/90 Blood Pressure 138/66( 025 10:21 AM EST) No Valerio Sweet PharmD documented as of this encounter Visit Diagnoses Not on filedocumented in this encounter Care Teams House Piping Inspector Relationship Specialty Start Date End Date Evi Thomson MD [address] [place] [phone] PCP - General Family Medicine 03/13/19 Valerio Sweet PharmD [address] [place] [phone] Pharmacist Internal Medicine [facility] documented as of this encounter
--- OUTSIDE RECORDS SUMMARY | 2025-11-14 15:40 | XMS_ITS | Encounter Summary ---
Author Organization [employer] Address [address] [facility] 7t [place] [address] Care Team Providers Care Cisco Engineer Name Role Phone Evi Thomson MD Primary Care Provider + Valerio Sweet PharmD Unavailable [phone] Reason for Visit * Reason Onset Date Comments pre op 12/05/2024 Encounter Details Date Type Department Care Team ([facility] st Contact Info) Description 12/05/2024 Telephone [facility] [address] [place], [place] [phone] vEi Thomson MD [address] [place], [place] [phone] pre op Social History Tobacco Use Types [...] to pre op appointment on 12/22/24 with [place]. Appointment reminder letter mailed * Telephone Encounter - Himanshu Nolen - 12/05/2024 2:43 PM EST Date of Surgery: 12/29 Surgical procedure being done: Bilateral Upper Eyelid Surgery and Muscle Surgery Type of anesthesia: MAC Lab needed: Yes EKG: Yes Surgeon's name: Facility name: [facility]. Surgeon's office number: [phone] Surgeon's office fax number: [phone] Contact name (person you spoke with): Ness Last office note from surgeon requested: No Send Message to Dinora Rodriguez and Kevin Woods documented in this encounter Plan of Treatment Upcoming Encounters Date Type Department Care Team ([facility] st Contact Info) Description 11/26/2025 9:15 AM EST Office Visit [facility] [address] [place] [address] [phone] Evi Thomson MD [address] [place] [address] documented as of this encounter Goals Goal Patient Goal Type Associated Problems Recent Progress Patient-Stated? Author Blood Pressure < 140/90 Blood Pressure 138/66( 025 10:21 AM EST) No Valerio Sweet, PharmMckenna documented as of this encounter Visit Diagnoses Not on filedocumented in this encounter Care Teams Cisco Engineer Relationship Specialty Start Date End Date Evi Thomson MD [address] [place] [address] PCP - General Family Medicine 03/13/19 Valerio Sweet, PharmD [address] [place] [phone] Pharmacist Internal Medicine 11/02/22 Olimpia JOSUE 05/17/25 documented as of this encounter
--- OUTSIDE RECORDS SUMMARY | 2025-11-14 15:40 | XMS_ITS | Encounter Summary ---
Author Organization [employer] Address [address] [facility] 7t [place] [address] Care Team Providers Care Pastry Sous Chef Name Role Phone Evi Thomson MD Primary Care Provider + Valerio Sweet PharmD Unavailable [phone] Reason for Visit * Reason Comments Med Refill Encounter Details Date Type Department Care Team ([facility] st Contact Info) Description 05/14/2024 Refill [facility] [address] [place], [place] [phone] Amrita Alfred FNP [address] [place] [phone] Social History Tobacco Use Types Packs/Day Years [...] 9:15 AM EST Office Visit [facility] [address] [place] [phone] Evi Thomson MD [address] [place] [address] documented as of this encounter Goals Goal Patient Goal Type Associated Problems Recent Progress Patient-Stated? Author Blood Pressure < 140/90 Blood Pressure 138/66( 025 10:21 AM EST) No Valerio Sweet, PharmMckenna documented as of this encounter Visit Diagnoses Not on filedocumented in this encounter Care Teams Pastry Sous Chef Relationship Specialty Start Date End Date Evi Thomson MD [address] [place] [phone] PCP - General Family Medicine 03/13/19 Valerio Sweet, PharmD [address] [place] [address] Pharmacist Internal Medicine 11/02[facility] documented as of this encounter
--- OUTSIDE RECORDS SUMMARY | 2025-11-14 15:40 | XMS_ITS | Clinical Summary ---
Author Organization [facility] Address [address] [place] [address] Care Team Providers Care Armor Reconnaissance Vehicle Driver Name Role Phone Evi Thomson MD Primary Care Provider [phone] Immunizations Immunization Administration Dates Next Due Moderna [...] age to complete this topic Care Teams Armor Reconnaissance Vehicle Driver Relationship Specialty Start Date End Date Evi Thomson MD [address] [place] [phone] PCP - General 09/03/23
--- OUTSIDE RECORDS SUMMARY | 2025-11-14 15:40 | XMS_ITS | Encounter Summary ---
Author Organization [employer] Address [address] [facility] 7t [place] [address] Care Team Providers Care Yeast Culture Operator Name Role Phone Evi Thomson MD Primary Care Provider + Valerio Sweet PharmD Unavailable [phone] Reason for Visit * Reason Comments Med Refill Encounter Details Date Type Department Care Team ([facility] st Contact Info) Description 07/05/2024 Refill [facility] [address] [place], [place] [phone] Evi Thomson MD [address] [place], [place] [phone] Allergic rhinitis due to other allergic trigger, [...] Description 11/26/2025 9:15 AM EST Office Visit [facility] [address] [place] [phone] Evi Thomson MD [address] [place] [phone] documented as of this encounter Goals Goal Patient Goal Type Associated Problems Recent Progress Patient-Stated? Author Blood Pressure < 140/90 Blood Pressure 138/66( 025 10:21 AM EST) No Valerio Sweet PharmD documented as of this encounter Visit Diagnoses Diagnosis Allergic rhinitis due to other allergic trigger, unspecified seasonality documented in this encounter Care Teams Yeast Culture Operator Relationship Specialty Start Date End Date Evi Thomson MD [address] [place] [phone] PCP - General Family Medicine 03/13/19 Valerio Sweet PharmD [address] [place] [phone] Pharmacist Internal Medicine 11/02/22 [facility] 05/17/25 documented as of this encounter
== END 2025-11-14 14:32 | disposition home or self-care (01) ==
LOC: HO.MAMMO 14:31
PROVIDERS: PCP Internal Medicine; Visit Provider Internal Medicine Endocrinology, Diabetes & Metabolism
DX: M81.0 Age-related osteoporosis without current pathological fracture (principal); E21.3 Hyperparathyroidism, unspecified
CPT/HCPCS: 77081